=== PATIENT | male | born 1935 | race Caucasian/White ===

== ENCOUNTER 2024-12-03 09:58 | Observation (INO) ==
--- NOTE | 2024-12-03 10:15 | Emergency Department Note ---
Impression & Plan Acute hypotension, Memory impairment, Weakness ED Provider Note NAME: BYRON MURRAY AGE: 89 SEX: M : 1935 ARRIVES VIA: Ambulance INFORMANT: Patient ED PROVIDER(S): Huy Montanez DO CHIEF COMPLAINT: Low blood pressure HPI: Patient is an 89-year-old male with a past medical history of memory impairment, dyslipidemia, saddle PE, IVC filter who presents to the ER for low blood pressure from [facility]. Per patient he has a wound on his left lateral leg. He is unsure of how this occurred but is assuming that it was secondary to one of his dogs as he has 5 dogs. He notes all of them are vaccinated and doing well. He notes this occurred close to a month ago. He denies any redness or swelling around it. He denies any headache or change in vision. He admits to chest pain which is on both sides of his chest and has been present for over a year. It does not change with exertion or movement. Denies any belly pain, nausea, vomiting or diarrhea. No dysuria, urgency or frequency. No passing out. No other exacerbating or remitting factors. Patient is unaware of any tick bites. ADDITIONAL HISTORY OBTAINED: Discussed with Svetlana Walters who is the patient's daughter via telephone. She provides additional history and notes that patient was bit by his daughter's dog about a week ago. The dog's vaccinations are up-to-date. The dog is doing well. She also notes that her father has dementia and is at baseline confused and appears to be at his baseline currently. Chronic Medical/Social Conditions Affecting Care: Per HPI PAST MEDICAL HISTORY:See Below PAST SURGICAL HISTORY:See Below FAMILY HISTORY:See Below SOCIAL HISTORY:See Below HOME MEDICATIONS:See Below ALLERGIES:See Below VITALS:See Below PHYSICAL EXAMINATION: GENERAL: Sitting up in bed, alert, well appearing, well nourished, no distress, non-toxic EYE EXAM: normal conjunctiva. PERRL and EOM's grossly intact. OROPHARYNX: no exudate, no erythema, lips, buccal mucosa, and tongue normal and mucous membranes are moist NECK: supple, no nuchal rigidity, no adenopathy, non-tender LUNGS: Clear to auscultation. Normal chest wall mechanics HEART: no murmurs, S1 normal and S2 normal ABDOMEN: abdomen soft, non-tender, normo-active bowel sounds, no masses, no rebound or guarding. SKIN: Small wound on the left lateral lance with scab in place in the middle. Surrounding ring of discoloration of skin appears to be consistent with a bruise. UPPER EXTREMITIES: upper extremities are grossly normal. LOWER EXTREMITIES: No pitting edema. NEURO EXAM: Oriented to person and place but not year, cranial nerves II-XII intact, normal speech, no weakness of arms, no weakness of legs. No drift. Finger to nose intact. Gross sensation intact. MEDICAL DECISION MAKING: Patient is an 89-year-old male who presents ER for the above-stated complaint. IV was established blood work was obtained. Labs show no significant leukocytosis or anemia. INR unremarkable. BMP with LFTs bilirubin and lipase was unremarkable. Pro-Pio was normal. Troponin was negative. UA was clean. Viral panel testing was negative. Lyme was negative. Chest x-ray was clean. X-ray of the leg showed no retained foreign body. External records were reviewed from [facility] PCP and notes that patient was sent over for left leg lesion which they felt was secondary to a bug bite. They sent him over secondary to low blood pressure per Dr. Brock 12/04/2019 family medicine. Patient was given IV fluids. Systolic pressures prior to arrival were in the 60s per review of external records. Here they dipped down to 90s but did respond with IV fluids. He was updated bedside discussed with the daughter and patient was discussed with the hospitalist for observation overnight due to low blood pressures without a clear cause. Consults/Care Managements Discussions: Per [facility] Triage Nursing notes reviewed. Limited review of prior medical records performed Vital Signs: reviewed and remarkable for no significant abnormalities Differential diagnosis: Infection, dehydration, metabolic abnormality, hypo/hyperglycemia, electrolyte disturbance, anemia, hypoxia, cardiac sources, intracerebral event, toxicologic, neurologic, as well as other pathologies. ER treatment provided: See below Diagnostics interpreted by me include EKG and cardiac monitoring as listed below: -Cardiac Monitoring: An order was placed for continuous cardiac monitoring. The monitor shows a rate of 80 with sinus rhythm. -ECG: Sinus rhythm rate 76 Normal axis No PVCs First-degree AV block -Laboratory studies:Interpreted by me as stated above in MDM and shown below. Imaging studies: Xrays: As interpreted by me: Portable AP upright 1 view of the chest shows no focal M-Trate CTs show: none Procedures:none Critical Care: None Past Med/Surg History Problem List (Updated 12/03/24 @ 16:32 by Huy oMntanez DO) Weakness (Acute) Acute hypotension (Acute) Transient hypotension Neuropathy History of alcohol use Memory impairment (Acute) Abdominal aortic ectasia Dyslipidemia GERD (gastroesophageal reflux disease) Macular degeneration History of shingles 2007. 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 Coronary atherosclerosis Previously noted on chest CT Elevated sed rate Surgical History (Updated 06/02/21 @ 13:53 by Jeannine Francois PA-C) S/P ORIF (open reduction internal fixation) fracture 05/18/2021 History of tooth extraction History of cystoscopy Social History Smoking Status: Never smoker Cigarettes Per Day: 1/3 ppd x 42yrs; Second Hand Exposure: No; Do You Dip or Chew Tobacco: No; Hx Alcohol Use: Yes Alcohol type: hard liquor Hx Substance Use: No Preferred Language: Salvadorean Communication Ability: Effective English Faculty Member Required: No Beliefs That Will Affect Care: None Current Living Situation: Spouse Feels Safe at Home: Yes Assistive Devices: None Allergies Allergies Allergy/AdvReac Type Severity Reaction Status Date / Time No Known Allergies Allergy Verified 07/28/21 12:30 Home Meds Home Medications Medication Instructions Recorded Confirmed ascorbic acid (vitamin C) 500 mg 500 mg PO Q OTHER DAY 09/26/18 12/03/24 tablet clopidogrel 75 mg tablet (Plavix) 75 mg PO DAILY 09/26/18 12/03/24 acetaminophen 325 mg tablet 650 mg PO Q4H PRN Pain 06/02/21 12/03/24 cholecalciferol (vitamin D3) 25 25 mcg PO DAILY 06/02/21 12/03/24 mcg (1,000 unit) tablet cyanocobalamin (vitamin B-12) 1,000 mcg PO DAILY 06/02/21 12/03/24 1,000 mcg tablet docusate sodium 100 mg capsule 100 mg PO TID 06/02/21 12/03/24 omega-3 fatty acids 1,000 mg 1,000 mg PO DAILY 06/02/21 12/03/24 capsule polyethylene glycol 3350 17 17 g PO DAILY 06/02/21 12/03/24 gram/dose oral powder (Miralax) thiamine HCl (vitamin B1) 100 mg 500 mg PO DAILY 06/02/21 12/03/24 tablet allopurinol 100 mg tablet 100 mg PO DAILY 12/03/24 12/03/24 apixaban 5 mg tablet (Eliquis) 5 mg PO BID 12/03/24 12/03/24 buspirone 10 mg tablet 10 mg PO BID 12/03/24 12/03/24 colchicine 0.6 mg tablet 0.6 mg PO BID 12/03/24 12/03/24 metoprolol succinate 25 mg 25 mg PO DAILY 12/03/24 12/03/24 tablet,extended release 24 hr rosuvastatin 40 mg tablet 40 mg PO DAILY 12/03/24 12/03/24 sertraline 50 mg tablet 50 mg PO DAILY 12/03/24 12/03/24 Results & Data (ED) Vital Signs Vital Signs - 24 hr 12/03/24 09:35 12/03/24 09:41 12/03/24 09:41 Temperature 36.6 C Temperature Source Oral Pulse Rate 81 Pulse Rate [Apical] Pulse Rate from SpO2 Sensor Respiratory Rate 18 18 Blood Pressure 110/69 Blood Pressure [Right Arm] Blood Pressure Mean 82 Blood Pressure Mean [Right Arm] Pulse Oximetry 95 Oxygen Delivery Method Room Air Sepsis Recent Fever Within 48 Hours No Sepsis New/Unexplained Change in Mental Status N/A Sepsis Action Taken by Nursing No Action Required 12/03/24 10:10 12/03/24 10:16 12/03/24 10:16 Temperature Temperature Source Pulse Rate Pulse Rate [Apical] Pulse Rate from SpO2 Sensor Respiratory Rate Blood Pressure 98/70 L 98/70 L Blood Pressure [Right Arm] Blood Pressure Mean 79 79 Blood Pressure Mean [Right Arm] Pulse Oximetry 96 Oxygen Delivery Method Sepsis Recent Fever Within 48 Hours Sepsis New/Unexplained Change in Mental Status Sepsis Action Taken by Nursing 12/03/24 10:16 12/03/24 10:16 12/03/24 10:20 Temperature Temperature Source Pulse Rate 74 Pulse Rate [Apical] Pulse Rate from SpO2 Sensor Respiratory Rate Blood Pressure 98/70 L 98/70 L Blood Pressure [Right Arm] Blood Pressure Mean 79 79 Blood Pressure Mean [Right Arm] Pulse Oximetry Oxygen Delivery Method Sepsis Recent Fever Within 48 Hours Sepsis New/Unexplained Change in Mental Status Sepsis Action Taken by Nursing 12/03/24 10:30 12/03/24 10:30 12/03/24 11:45 Temperature Temperature Source Pulse Rate 75 71 Pulse Rate [Apical] 75 Pulse Rate from SpO2 Sensor 74 Respiratory Rate 19 18 17 Blood Pressure 109/76 Blood Pressure [Right Arm] 97/71 L Blood Pressure Mean 82 Blood Pressure Mean [Right Arm] 79 Pulse Oximetry 95 93 Oxygen Delivery Method Room Air Sepsis Recent Fever Within 48 Hours Sepsis New/Unexplained Change in Mental Status Sepsis Action Taken by Nursing 12/03/24 13:50 Temperature Temperature Source Pulse Rate Pulse Rate [Apical] 81 Pulse Rate from SpO2 Sensor Respiratory Rate 14 Blood Pressure Blood Pressure [Right Arm] 111/79 Blood Pressure Mean Blood Pressure Mean [Right Arm] 89 Pulse Oximetry 96 Oxygen Delivery Method Room Air Sepsis Recent Fever Within 48 Hours Sepsis New/Unexplained Change in Mental Status Sepsis Action Taken by Nursing Laboratory Data 12/03/24 10:00 12/03/24 10:00 Lab Results 12/03/24 12/03/24 12/03/24 Range/Units 10:00 10:53 12:16 WBC 7.09 (4.8-10.8) K/ul RBC 4.86 (4.70-6.10) M/uL Hgb 15.5 (14.0-18.0) g/dl Hct 46.0 (42.0-52.0) % MCV 94.7 (80.0-100.0) fL MCH 31.9 (25.0-34.0) pg MCHC 33.7 (32.0-36.0) g/dL RDW Std Deviation 49.6 H (36.4-46.3) fL RDW Coeff of Sam 14.2 (11.5-14.5) % Plt Count 225 (130-400) K/uL MPV 9.2 L (9.4-12.4) fL Immature Gran % (Auto) 0.3 % Neut % (Auto) 71.5 % Lymph % (Auto) 17.2 % [place] % (Auto) 9.9 % Eos % (Auto) 0.7 % Baso % (Auto) 0.4 % Neut # (Auto) 5.07 (1.40-6.50) K/uL Lymph # (Auto) 1.22 (1.20-3.40) K/uL [place] # (Auto) 0.70 H (0.11-0.59) K/uL Eos # (Auto) 0.05 (0.00-0.50) K/uL Baso # (Auto) 0.03 (0.00-0.20) K/uL Immature Gran # (Auto) 0.02 (0.01-0.20) K/uL PT Cancelled 10.9 INR Cancelled 1.0 Sodium 137 (136-145) mmol/L Potassium 3.9 (3.5-5.1) mmol/L Chloride 105 (98-107) mmol/L Carbon Dioxide 26 (21-32) mmol/L Anion Gap 6 (3-11) BUN 14 (6-23) mg/dl Creatinine 0.95 (0.6-1.4) mg/dl Est Cr Clr Drug Dosing 69.0 ml/min eGFR 77.47 BUN/Creatinine Ratio 14.7 (10-20) Glucose 106 H (70-99(Fasting)) mg/dl Lactate 1.1 (0.4-2.0) mmol/L Calcium 9.6 (8.6-10.3) mg/dl Total Bilirubin 0.9 (0.2-1.0) mg/dl AST 24 (13-39) U/L ALT 21 (7-52) U/L Alkaline Phosphatase 44 (34-104) U/L Troponin I High Sens 8.8 (0-20) pg/ml Total Protein 6.1 (6.0-8.3) gm/dl Albumin 3.8 (3.4-5.0) gm/dl Globulin 2.3 L (2.5-4.0) gm/dl Albumin/Globulin Ratio 1.7 (0.9-2) Lipase 11 (11-82) U/L Procalcitonin < 0.02 (0-0.5) ng/ml Urine Color Urine Appearance (Clear) Urine pH (4.5-7.5) Ur Specific [place] (1.000-1.030) Urine Protein (Negative) Urine Glucose (UA) (Negative) Urine Ketones (Negative) Urine Blood (Negative) Urine Nitrite (Negative) Urine Bilirubin (Negative) Urine Urobilinogen (Negative) Ur Leukocyte Esterase (Negative) Urine WBC (Auto) (0-5) /hpf Urine RBC (Auto) (0-2) /hpf U Hyaline Cast (Auto) (0-2) /lpf U Epithel Cells (Auto) (0-2) /hpf Urine Bacteria (Auto) (None Seen) Urine Mucus (None Prsent) Adenovirus (PCR) Not Detected (NotDetected) Anaplasma Smear See Comment Babesia Smear See Comment B. pertussis DNA (PCR) Not Detected (NotDetected) B.parapertussis DNA PCR Not Detected (NotDetected) Lyme Disease Screen Negative (Negative) C. pneumoniae DNA (PCR) Not Detected (NotDetected) Coronavirus OC43 (PCR) Not Detected (NotDetected) Coronavirus HKU1 (PCR) Not Detected (NotDetected) Coronavirus 229E (PCR) Not Detected (NotDetected) SARS-CoV-2 (PCR) Not Detected (NotDetected) Coronavirus NL63 (PCR) Not Detected (NotDetected) Human Metapneumovir PCR Not Detected (NotDetected) Influenza Type A (PCR) Not Detected (NotDetected) Influenza Type B (PCR) Not Detected (NotDetected) M. pneumoniae (PCR) Not Detected (NotDetected) Parainfluenza 1 (PCR) Not Detected (NotDetected) Parainfluenza 2 (PCR) Not Detected (NotDetected) Parainfluenza 3 (PCR) Not Detected (NotDetected) Parainfluenza 4 (PCR) Not Detected (NotDetected) RSV (PCR) Not Detected (NotDetected) Entero/Rhino (PCR) Not Detected (NotDetected) 12/03/24 Range/Units 13:21 WBC (4.8-10.8) K/ul RBC (4.70-6.10) M/uL Hgb (14.0-18.0) g/dl Hct (42.0-52.0) % MCV (80.0-100.0) fL MCH (25.0-34.0) pg MCHC (32.0-36.0) g/dL RDW Std Deviation (36.4-46.3) fL RDW Coeff of Sam (11.5-14.5) % Plt Count (130-400) K/uL MPV (9.4-12.4) fL Immature Gran % (Auto) % Neut % (Auto) % Lymph % (Auto) % [place] % (Auto) % Eos % (Auto) % Baso % (Auto) % Neut # (Auto) (1.40-6.50) K/uL Lymph # (Auto) (1.20-3.40) K/uL [place] # (Auto) (0.11-0.59) K/uL Eos # (Auto) (0.00-0.50) K/uL Baso # (Auto) (0.00-0.20) K/uL Immature Gran # (Auto) (0.01-0.20) K/uL PT INR Sodium (136-145) mmol/L Potassium (3.5-5.1) mmol/L Chloride (98-107) mmol/L Carbon Dioxide (21-32) mmol/L Anion Gap (3-11) BUN (6-23) mg/dl Creatinine (0.6-1.4) mg/dl Est Cr Clr Drug Dosing ml/min eGFR BUN/Creatinine Ratio (10-20) Glucose (70-99(Fasting)) mg/dl Lactate (0.4-2.0) mmol/L Calcium (8.6-10.3) mg/dl Total Bilirubin (0.2-1.0) mg/dl AST (13-39) U/L ALT (7-52) U/L Alkaline Phosphatase (34-104) U/L Troponin I High Sens (0-20) pg/ml Total Protein (6.0-8.3) gm/dl Albumin (3.4-5.0) gm/dl Globulin (2.5-4.0) gm/dl Albumin/Globulin Ratio (0.9-2) Lipase (11-82) U/L Procalcitonin (0-0.5) ng/ml Urine Color Dark Yellow Urine Appearance Clear (Clear) Urine pH 6.0 (4.5-7.5) Ur Specific [place] 1.023 (1.000-1.030) Urine Protein Trace H (Negative) Urine Glucose (UA) Negative (Negative) Urine Ketones 2+ H (Negative) Urine Blood Negative (Negative) Urine Nitrite Negative (Negative) Urine Bilirubin Negative (Negative) Urine Urobilinogen Negative (Negative) Ur Leukocyte Esterase Negative (Negative) Urine WBC (Auto) 0-5 (0-5) /hpf Urine RBC (Auto) 3-5 H (0-2) /hpf U Hyaline Cast (Auto) 0-2 (0-2) /lpf U Epithel Cells (Auto) 0-2 (0-2) /hpf Urine Bacteria (Auto) None Seen (None Seen) Urine Mucus Present A (None Prsent) Adenovirus (PCR) (NotDetected) Anaplasma Smear Babesia Smear B. pertussis DNA (PCR) (NotDetected) B.parapertussis DNA PCR (NotDetected) Lyme Disease Screen (Negative) C. pneumoniae DNA (PCR) (NotDetected) Coronavirus OC43 (PCR) (NotDetected) Coronavirus HKU1 (PCR) (NotDetected) Coronavirus 229E (PCR) (NotDetected) SARS-CoV-2 (PCR) (NotDetected) Coronavirus NL63 (PCR) (NotDetected) Human Metapneumovir PCR (NotDetected) Influenza Type A (PCR) (NotDetected) Influenza Type B (PCR) (NotDetected) M. pneumoniae (PCR) (NotDetected) Parainfluenza 1 (PCR) (NotDetected) Parainfluenza 2 (PCR) (NotDetected) Parainfluenza 3 (PCR) (NotDetected) Parainfluenza 4 (PCR) (NotDetected) RSV (PCR) (NotDetected) Entero/Rhino (PCR) (NotDetected) Administered Medications Discontinued Medications Sodium Chloride (Nss) 500 mls @ 999 mls/hr IV .Q31M ONE Stop: 12/03/24 10:45 Last Infusion: 12/03/24 11:13 Dose: Infused Documented By: AVRoman Admin: 12/03/24 10:29 Dose: 999 mls/hr Documented By: GRACE Ceftriaxone Sodium (Rocephin) 2,000 mg in 50 mls @ 100 mls/hr IV NOW STA Stop: 12/03/24 15:23 Last Admin: 12/03/24 15:49 Dose: 100 mls/hr Documented By: DUKE Imaging Data Radiologist's Impression: Chest X-Ray 12/03/24 10:10 XR chest 1V portable CLINICAL HISTORY: Chest pain, nonspecific COMPARISON STUDY: None FINDINGS: Heart size and pulmonary vasculature are normal. No effusion, consolidation, or pneumothorax. IMPRESSION: No acute findings. ACT 112: Negative or not required by law. Electronically signed by: Gustavo Blackburn M.D. 12/03/2024 10:28 AM Tibia/Fibula X-Ray 12/03/24 10:20 XR tibia fibula LT 2V CLINICAL HISTORY: ? FB in wound COMPARISON: None FINDINGS: There are atherosclerotic calcifications. There is moderate 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 at the left knee and mild degenerative changes of the left ankle. No fracture or dislocation seen of the left tibia or fibula. No evidence of osteomyelitis. No radiopaque foreign body seen. IMPRESSION: No acute findings seen. ACT 112: Negative or not required by law. Electronically signed by: Gustavo Blackburn M.D. 12/03/2024 10:33 AM Discharge Plan Visit Data Chief Complaint: Hypotension Stated Complaint: HYPOTENSION ED Provider: Huy Montanez Discharge Problem: Acute hypotension, Memory impairment, Weakness Forms Stand Alone Forms: My [facility] Prescriptions Prescriptions: No Action acetaminophen 325 mg tablet 650 mg PO Q4H PRN (Reason: Pain) Rx Instructions: Unable to verify OTC meds at this date/time. cholecalciferol (vitamin D3) 25 mcg (1,000 unit) tablet 25 mcg PO DAILY Rx Instructions: Unable to verify OTC meds at this date/time. thiamine HCl (vitamin B1) 100 mg tablet 500 mg PO DAILY Rx Instructions: Unable to verify OTC meds at this date/time. omega-3 fatty acids 1,000 mg capsule 1,000 mg PO DAILY Rx Instructions: Unable to verify OTC meds at this date/time. cyanocobalamin (vitamin B-12) 1,000 mcg tablet 1,000 mcg PO DAILY Rx Instructions: Unable to verify OTC meds at this date/time. polyethylene glycol 3350 [Miralax] 17 gram/dose powder 17 g PO DAILY Rx Instructions: Unable to verify OTC meds at this date/time. docusate sodium 100 mg capsule 100 mg PO TID Rx Instructions: Unable to verify OTC meds at this date/time. clopidogrel [Plavix] 75 mg Tablet 75 mg PO DAILY ascorbic acid (vitamin C) 500 mg Tablet 500 mg PO Q OTHER DAY Rx Instructions: Unable to verify OTC meds at this date/time. allopurinol 100 mg tablet 100 mg PO DAILY buspirone 10 mg tablet 10 mg PO BID metoprolol succinate 25 mg tablet extended release 24 hr 25 mg PO DAILY colchicine 0.6 mg tablet 0.6 mg PO BID sertraline 50 mg tablet 50 mg PO DAILY rosuvastatin 40 mg tablet 40 mg PO DAILY Eliquis 5 mg tablet 5 mg PO BID Referrals Referrals: Roni Kenyon MD [Outside Practitioners] -
[2024-12-03 10:28] LABS: Basophils # (auto) 0.03 K/uL (0.00-0.20); Basophils % (auto) 0.4 %; Eosinophils # (auto) 0.05 K/uL (0.00-0.50); Eosinophils % (auto) 0.7 %; Hemoglobin 15.5 g/dl (14.0-18.0); Immature Granulocytes # (auto) 0.02 K/uL (0.01-0.20); Immature Granulocytes % (auto) 0.3 %; Lymphocytes # (auto) 1.22 K/uL (1.20-3.40); Lymphocytes % (auto) 17.2 %; Mean Corpuscular Hemoglobin 31.9 pg (25.0-34.0); Mean Corpuscular Hgb Conc 33.7 g/dL (32.0-36.0); Mean Corpuscular Volume 94.7 fL (80.0-100.0); Mean Platelet Volume 9.2 fL (9.4-12.4); Monocytes % (auto) 9.9 %; Neutrophils # (auto) 5.07 K/uL (1.40-6.50); Neutrophils % (auto) 71.5 %; Platelet Count 225 K/uL (130-400); RDW Coefficient of Variation 14.2 % (11.5-14.5); RDW Standard Deviation 49.6 fL (36.4-46.3); Red Blood Count 4.86 M/uL (4.70-6.10); White Blood Count 7.09 K/ul (4.8-10.8)
[2024-12-03] MEDS: SODIUM CHLORIDE 0.9% 500 ML IV ONE (10:29)
--- NOTE | 2024-12-03 10:30 | XRay Report ---
XR chest 1V portable CLINICAL HISTORY: Chest pain, nonspecific COMPARISON STUDY: None FINDINGS: Heart size and pulmonary vasculature are normal. No effusion, consolidation, or pneumothora x. IMPRESSION: No acute findings. ACT 112: Negative or not required by law. Electronically signed by: Gustavo Blackburn M.D. 12/03/2024 10:28 AM
--- NOTE | 2024-12-03 10:34 | XRay Report ---
XR tibia fibula LT 2V CLINICAL HISTORY: ? FB in wound COMPARISON: None FINDINGS: There are atherosclerotic calcifications. There is moderate 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 at the left kne e and mild degenerative changes of the left ankle. No fracture or dislocation seen of the left tibia or fibula. No evidence of osteomyelitis. No radiopaque foreign body seen. IMPRESSION: No acute findings seen. ACT 112: Negative or not required by law. Electronically signed by: Gustavo Blackburn M.D. 12/03/2024 10:33 AM
[2024-12-03 10:51] LABS: Albumin Level 3.8 gm/dl (3.4-5.0); Bilirubin,Total 0.9 mg/dl (0.2-1.0); Calcium 9.6 mg/dl (8.6-10.3); Potassium 3.9 mmol/L (3.5-5.1)
[2024-12-03 10:57] LABS: Albumin Globulin Ratio 1.7 (0.9-2); BUN Creatinine Ratio 14.7 (10-20); Globulin 2.3 gm/dl (2.5-4.0); Total Protein 6.1 gm/dl (6.0-8.3); Troponin I High Sensitivity 8.8 pg/ml (0-20)
[2024-12-03 11:29] LABS: Prothrombin Time 10.9 Seconds (9.0-12.0)
[2024-12-03 13:42] LABS: Adenovirus PCR Not Detected (NotDetected); Bordetella parapertussis PCR Not Detected (NotDetected); Bordetella pertussis PCR Not Detected (NotDetected); Chlamydia pneumoniae PCR Not Detected (NotDetected); Coronavirus 229E PCR Not Detected (NotDetected); Coronavirus CoV-2 (COVID19)PCR Not Detected (NotDetected); Coronavirus HKU1 PCR Not Detected (NotDetected); Coronavirus NL63 PCR Not Detected (NotDetected); Coronavirus OC43PCR Not Detected (NotDetected); Human Metapneumovirus PCR Not Detected (NotDetected); Influenza A PCR Not Detected (NotDetected); Influenza B PCR Not Detected (NotDetected); Mycoplasma pneumoniae PCR Not Detected (NotDetected); Parainfluenza Virus 1 PCR Not Detected (NotDetected); Parainfluenza Virus 2 PCR Not Detected (NotDetected); Parainfluenza Virus 3 PCR Not Detected (NotDetected); Parainfluenza Virus 4 PCR Not Detected (NotDetected); Respiratory Syncytial VirusPCR Not Detected (NotDetected); Rhinovirus/Enterovirus PCR Not Detected (NotDetected)
[2024-12-03 14:05] LABS: Appearance Urine Clear (Clear); Bacteria Urine Automated None Seen (None Seen); Bilirubin Urine Negative (Negative); Blood Urine Negative (Negative); Cast Urine Automated 0-2 /lpf (0-2); Color Urine Dark Yellow; Epithelial Cell Urine Auto 0-2 /hpf (0-2); Glucose Urine UA Negative (Negative); Ketones Urine 2+ (Negative); Leukocyte Esterase Urine Negative (Negative); Mucus Urine Present (None Prsent); Nitrite Urine Negative (Negative); Protein Urine Trace (Negative); Specific Gravity Urine 1.023 (1.000-1.030); Urobilinogen Urine Negative (Negative); WBC Urine Automated 0-5 /hpf (0-5)
--- NOTE | 2024-12-03 14:33 | Electrocardiogram Report ---
Test Reason : Blood Pressure : */* mmHG Vent. Rate : 76 BPM Atrial Rate : 76 BPM P-R Int : 218 ms QRS Dur : 82 ms QT Int : 402 ms P-R-T Axes : 67 -15 51 degrees QTcB Int : 452 ms Sinus rhythm with 1st degree A-V block Otherwise normal ECG No previous ECGs available Confirmed by Kar Rodriugez ([id number]) on 12/03/2024 2:33:03 PM Referred By: Confirmed By: Kar Rodriguez
--- NOTE | 2024-12-03 15:34 | History & Physical Report ---
Date of Service December 03, 2024 Assessment & Plan (1) Transient hypotension: (2) Hypertension: (3) Factor V Leiden: (4) Coronary atherosclerosis: (5) Memory impairment: Plan Patient 89-year-old gentleman with known CAD, factor V Leiden deficiency on chronic anticoagulation, abdominal aortic aneurysm status post repair was noted to be hypotensive in his PCPs office earlier today. Patient was asymptomatic. Evaluation in the emergency room was unremarkable for acute findings. Blood pressure rapidly improved with hydration. Observe in a monitored unit Monitor blood pressure Hold antihypertensive medications Continue with chronic anticoagulation with Eliquis Anticipate if blood pressure remains stable can be discharged home tomorrow History of Present Illness Chief Complaint: Low blood pressure Primary Care Provider: Fran Peres MD Patient 89-year-old gentleman who initially presented to his PCPs office earlier today to evaluate a bite on his leg. In the office he was noted to have extremely low blood pressure. Multiple readings showed a systolic less than 100 and at 1 point had a systolic of 60. Patient apparently was mentating normally throughout this time. Denied any specific symptoms. His PCP sent him to the emergency room for further evaluation. When patient presented to the emergency department his initial systolic blood pressure was 98. His blood pressure significantly improved with fluid resuscitation. Laboratory and imaging studies performed in the emergency room were unremarkable. However due to the patient's initial clinical presentation was referred to our service for further evaluation. Time of my evaluation the patient will denies any symptoms. No li ghtheadedness and dizziness, no cough or cold symptoms, states that he is chronically short of breath but this is not gotten any worse over the past few days. He describes some chronic bilateral musculoskeletal chest pain. He states has been eating and drinking well. No new problems with the bowels or bladder. No new swelling his hands arms legs or feet. There was learned that he did have a dog bite it was a relatives dog that is up-to-date on all his vaccines. Imaging of the leg in the ED showed no acute findings. Patient was concerned because there was a ring around the dog puncture wound. Tickborne illness panel in the ED was negative. Patient reports that he did take his usual medications this morning. Denies that he may have taken any extra blood pressure medications. States he lives independently with his . Allergies Allergy/AdvReac Type Severity Reaction Status Date / Time No Known Allergies Allergy Verified 07/28/21 12:30 Home Medications Medication Instructions Recorded Confirmed Type ascorbic acid (vitamin C) 500 mg 500 mg PO Q OTHER DAY 09/26/18 12/03/24 History tablet clopidogrel 75 mg tablet (Plavix) 75 mg PO DAILY 09/26/18 12/03/24 History acetaminophen 325 mg tablet 650 mg PO Q4H PRN Pain 06/02/21 12/03/24 History cholecalciferol (vitamin D3) 25 25 mcg PO DAILY 06/02/21 12/03/24 History mcg (1,000 unit) tablet cyanocobalamin (vitamin B-12) 1,000 mcg PO DAILY 06/02/21 12/03/24 History 1,000 mcg tablet docusate sodium 100 mg capsule 100 mg PO TID 06/02/21 12/03/24 History omega-3 fatty acids 1,000 mg 1,000 mg PO DAILY 06/02/21 12/03/24 History capsule polyethylene glycol 3350 17 17 g PO DAILY 06/02/21 12/03/24 History gram/dose oral powder (Miralax) thiamine HCl (vitamin B1) 100 mg 500 mg PO DAILY 06/02/21 12/03/24 History tablet allopurinol 100 mg tablet 100 mg PO DAILY 12/03/24 12/03/24 History apixaban 5 mg tablet (Eliquis) 5 mg PO BID 12/03/24 12/03/24 History buspirone 10 mg tablet 10 mg PO BID 12/03/24 12/03/24 History colchicine 0.6 mg tablet 0.6 mg PO BID 12/03/24 12/03/24 History metoprolol succinate 25 mg 25 mg PO DAILY 12/03/24 12/03/24 History tablet,extended release 24 hr rosuvastatin 40 mg tablet 40 mg PO DAILY 12/03/24 12/03/24 History sertraline 50 mg tablet 50 mg PO DAILY 12/03/24 12/03/24 History Past Med/Surg History Problem List (Updated 12/03/24 @ 15:38 by Zach Tsai DO) Transient hypotension Neuropathy History of alcohol use Memory impairment Abdominal aortic ectasia Dyslipidemia GERD (gastroesophageal reflux disease) Macular degeneration History of shingles 2007. 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 Sclera clear Neck: Soft, no adenopathy Lungs: Clear to auscultation, decreased, no wheezes rales or rhonchi CV: S1-S2, regular Abdomen: Soft, nontender, nondistended Extremities: No significant edema Musculoskeletal: Some mild tenderness to palpation in the anterior ribs bilaterally Neuro: No focal deficits Psych: Cooperative, normal mood Derm: Well-healing puncture wound Left lower extremity, no evidence of cellulitis, no erythema, no swelling, no tenderness Results & Data Results & Data Vital Signs (Past 12 Hours) Vital Signs Temp Pulse Pulse Resp BP BP Pulse Ox 12/03/24 13:50 81 14 111/79 96 12/03/24 11:45 75 17 97/71 L 93 12/03/24 10:30 71 18 109/76 12/03/24 10:30 75 19 95 12/03/24 10:20 74 12/03/24 10:16 98/70 L 12/03/24 10:16 98/70 L 03/25/25 10:16 98/70 L 12/03/24 10:16 98/70 L 12/03/24 10:10 96 12/03/24 09:41 18 12/03/24 09:41 12/03/24 09:35 36.6 C 81 18 110/69 95 O2 Del Method 12/03/24 13:50 Room Air 12/03/24 11:45 Room Air 12/03/24 10:30 12/03/24 10:30 12/03/24 10:20 12/03/24 10:16 12/03/24 10:16 12/03/24 10:16 12/03/24 10:16 12/03/24 10:10 12/03/24 09:41 12/03/24 09:41 Room Air 12/03/24 09:35 Diagnostic Findings Reviewed imaging, laboratory and diagnostic studies. Pertinent findings as below. Personally reviewed chest x-ray, no consolidative pneumonia Personally reviewed EKG, sinus rhythm no acute ST-T wave changes Tickborne illness panel negative Urinalysis unremarkable Respiratory viral panel negative BMP stable CBC stable Code Status & VTE Plan VTE Prophylaxis Plan VTE Prophylaxis will be ordered: No Reason for no VTE drug order: Contraindicated
[2024-12-03] MEDS: cefTRIAXone SODIUM 2,000 MG/50 ML BAG IV STA (15:49)
--- OUTSIDE RECORDS SUMMARY | 2024-12-03 16:51 | External Medical Summary | Summary of Care ---
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) Aortic root dilatation (HCC) CKD (chronic kidney disease), 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) senior care current use of 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 Mixed dyslipidemia History of endovascular stent graft for abdominal aortic aneurysm 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) Procedures CTA ABD/PELVIS Trey Culver PA-C [address] [place] [address] Phone: tel: fax: Referral ID Status Reason Start Date Expiration Date V isits Requested Visits Authorized [id number] Authorized 10/23/2024 999 999 Reason for Visit * Reason Comments Follow Up Encounter Details Date Type Department Care Team (Latest Contact Info) Description 10/23/2024 10:10 AM EST Office Visit Vascular Surgery, [facility] [address] [facility] [place] [address] Walt Raphael MD [address] [place] [address] 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 Active folic acid 1 MG Tablet Take 1 Tablet by mouth every other day. Active vitamin c (ASCORBIC ACID) 500 MG Tablet Take 1 Tablet by mouth every other day. Active Garlic 500 MG CAPS Take 1 Cap by mouth every other day. Active Multiple Vitamins-Minerals (MULTIVITAMIN ADULT) TABS Take by mouth. Act wilber Cholecalciferol (VITAMIN D) 2000 UNITS Capsule Take 2,000 Units by mouth daily. Active Multiple Vitamins-Minerals (PRESERVISION AREDS 2) Capsule Take 1 Capsule by mouth in the morning. Active Ipratropium-Albut anthony 0.5-2.5 (3) MG/3ML Inhalation Solution (Duoneb)Indicatio ns:COPD, 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 determined ([facility]) Inhale 3 mL by mouth every 6 hours as needed for Shortness of Breath. 372 mL 5 1 Active Docusate Sodium 100 MG Oral Capsule (Colace)Indicatio ns:Constipation, unspecified constipation type Take 1 Cap by mouth daily. 60 Cap 2 1 Active Additional Information Patient taking differently:100 mg OralPRN, Reported on 10/23/2024 Calcium 200 MG Oral Tablet Take 200 mg by mouth in the morning. Active Rosuvastatin Calcium 40 MG Oral Tablet (Crestor)Indicati ons:Mixed dyslipidemia TAKE ONE TABLET BY MOUTH EVERY DAY AT BEDTIME 100 Tablet 1 08/20/2024 12:47 PM EST 4 Active Isosorbide Mononitrate ER 30 MG Oral Tablet Extended Release 24 Hour (Imdur)Indication s:Coronary artery calcification Take 0.5 Tablets by mouth in the morning. 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 60 Tablet 5 10/08/2024 7:28 AM EST 4 Active Allopurinol 100 MG Oral Tablet (Zyloprim)Indicat ions:Gouty arthropathy Take 1 Tablet by mouth in the morning. 90 Tablet 1 09/28/2024 3:45 PM EST 4 Active Sertraline HCl 50 MG Oral Tablet (Zoloft)Indicatio ns:Anxiety Take 1 Tablet by mouth in the morning. 90 Tablet 1 10/21/2024 5:43 PM EST 4 Active Loratadine 10 MG Oral Tablet (Claritin)Indicat ions:Tinnitus of both ears Take 1 Tablet by mouth in the morning. 30 Tablet 5 Active busPIRone HCl 10 MG Oral Tablet (Buspar)Indicatio ns:PURVI (generalized anxiety disorder) Take 1 Tablet by mouth in the morning and 1 Tablet before bedtime. 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) 1.5 mg IJ PRN 07/09/2024 07/09/2025 Active documented as of this encounter (statuses as of 10/23/2024) Active Problems Problem Noted Date Diagnosed Date History of endovascular sten t graft for abdominal aortic aneurysm 10/23/2024 Type Ib endoleak of aortic graft 10/23/2024 Pre-op testing 10/23/2024 Other emphysema 12/13/2023 BMI 26.0-26.9,adult 11/08/2022 Emphysema of lung 07/07/2021 Aortic root dilatation 07/07/2021 Ascending aortic aneurysm 07/07/2021 Nonrheumatic mitral valve regurgitation 07/07/20 21 CKD (chronic kidney disease), stage II Overview (04/29/2021): EGFR 66.5 Hx pulmonary embolism 07/16/2020 Primary 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 of both knees 08/01/2019 senior care current use of 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 0 03/04/2019 Actinic keratosis 12/12/2018 Atherosclerosis of [place] 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[place] heart without angina pectoris 04/19/2018 Abdominal aortic aneurysm without rupture 2015 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 09/14/2015 Factor V 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 12/30/2013 Overview (12/30/2013): has one copy of Factor V 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 Mixed dyslipidemia 11/25/2009 GENERAL OSTEOARTHROSIS Tobacco use disorder Exudative age-related macula r degeneration of both eyes with active choroidal neovascularization documented as of this encounter (statuses as of 10/23/2024) Resolved Problems Problem Noted Date Diagnosed Date Resolved Date ASCVD (arteriosclerotic card iovascular disease) 07/07/2021 10/19/2021 Coronary artery calcification 07/07/2021 03/26/2024 Overview (03/26/2024): duplicate Abdominal aortic aneurysm (A AA) without rupture 10/11/2016 10/11/2016 AAA (abdominal aortic aneurysm) 10/07/2015 10/11/2016 Overview (10/07/2015): S/p repair Iliac artery thrombosis, left 09/23/2015 04/19/2018 Coronary atherosclerosis 04/30/201502/2019 Abdominal aortic ectasia 10/30/2014 Discomfort in chest 10/21/2014 10/17/19 18 Macular degeneration (senile) of retina 06/26/2014 10/24/2019 Saddle embolus of pulmonary artery 12/23/2013 04/19/2018 Overview (12/25/2013): Admitted [facility] Encounter for examination fo r normal comparison and control in clinical research program 07/31/2012 2013 Overview (12/28/2020): Diagnosis changed due to Research Module. Go to Snapshot for study details. Vitamin D deficiency 11/25/2009 018 Overview (11/26/2009): Vitamin D 18.8 Dyslipidemia, goal to be determined 08/20/2009 11/25/2009 Overview (08/20/2009): Per Lipid Taxonomy. ADVANCE DIRECTIVE INFORMATION 09/13/2005 07/15/2024 Overview (09/13/2005): Yes, Patient instructed to provide copy of advance directive for provider to review and to be scanned into Electronic Medical Record Essential hypertension with goal blood pressure less than 140/90 10/17/2017 PURE HYPERCHOLESTEROLEM 08/11 Overview (08/20/2009): Per Lipid Taxonomy. Esophageal reflux 04/23/2019 BMI 32.0-32.9,adult 01/16/20 13 BMI 31.0-31.9,adult 10/11/19 17 documented as of this encounter (statuses as of 10/23/2024) Immunizations Name Administration Dates Next Due COVID-19 mRNA, LNP-s, No Pre serve, 2-Dose Series (Moderna) 11/06/2020,10/09/2020 COVID-19, LNP-s, No Preserve , Seng-sucrose, Ages 12+ (Pfizer) 05/03/2022 COVID-19, mRNA, LNP-s, PF, B ooster, 100mcg/0.5mg (Moderna) 11/02/2021 Influenza, Whole Virus 08/16/2000 Pneumococcal Conjugate Vacc, 13 Valent (Prevnar) 09/22/2014 Pneumococcal Polysaccharide PPV23 (Pneumovax) 09/17/2003 Season Influenza, Quad, PF, Adjuvanted, 65+ Yrs, IM (FLUAD) 05/12/2021,06/01/2020 Seasonal Influenza Vac., MDV , IM, 0.5 mL (Fluzone) 05/28/2015,06/05/2014,06/04/2013,06/11,05/15/2012,05/31/2011,06/08/20 10,05/29/2009,07/22/2008,06/21/2007,1 ,06/23/2005,06/15/2004,07/03,07/15/2002,08/01/2001 06/15/2005 Seasonal Influenza, High Dos e, Trivalent, PF, IM (Fluzone HD) 05/29/2024 Seasonal Influenza, PF, 6 M & above, IM , (FluLaval or Fluzone) 06/21/2018 Seasonal Influenza, Quadriva lent Hd (Fluzone Hd) 06/01/2023,05/30/2022,06/07/2021 Seasonal Influenza, Quadriva lent, No Preserve, IM 05/22/2017,06/27/2016 Seasonal Influenza, Trivalen t, Adjuvanted, 65+ YRS, PF, (Fluad) 07/02/2019 TD - Tetanus/Diptheria (ADULT) 09/18/2007 TDAP (age 10 and older)(Boostrix) 05/09/2023,03/2013 Varicella Zoster Vaccine (Adult) 06/26/2012 Zoster Vaccine Recombinant (Shingrix) 04/02/2020 ,12/25/2019 documented as of this encounter Social History Tobacco Use Types Packs/Day Years Used Date Smoking Tobacco: Every Day Cigarettes 0.3 53 Started: 04/27/1968; Last attempted to quit: 04/27/2021 Cigars Smokeless Tobacco: Never Tobacco Cessation:Ready to Q uit: No; Counseling Given: No Comments:10/23/2024 Smoke cigars about 2 packs per week,declined pamphlet 08/31/22 4-5 little cigars, declined pamphlet Alcohol Use Standard Drinks/Week Comments Yes 0 (1 standard drink = 0.6 oz pur e alcohol) 3-4 days a week PHQ-2 Answer Date Recorded PHQ-2 Score -1 05/31/2020 Sex and Gender Information Value Date Recorded Sex Assigned at Not on file Legal Sex Male 6:01 AM EST Gender Identity Not on file Sexual Orientation Not on file documented as of this encounter Last Filed Vital Signs Vital Sign Reading Time Taken Comments Blood Pressure 110/72 10/23/2024 9:53 AM EST Pulse 54 10/23/2024 9:53 AM EST Temperature - - Respiratory Rate - - Oxygen Saturation - - Inhaled Oxygen Concentration - - Weight 106.3 kg (234 lb 6.4 oz) 10/23/2024 9:53 AM EST Height 193 cm (6' 4") 10/23/2024 9:53 AM EST Body Mass Index 28.53 10/23/2024 9:53 AM EST documented in this encounter Progress Notes * Trey Culver PA-C - 10/23/2024 10:10 AM EST Images from the original note were not included. Date of Service: 10/23/2024 9:58 AM Jeff Powers is a 88 year old male. Patient being seen in consultation at the request of Roni Kenyon MD Chief Complaint: Surveillance of 2015 EVAR. Presents with his , Sarai, and their daughter, Nargis Patient is dealing with some painful knees, due to OA Otherwise doing OK Lives at home, with his HPI: Reformed smoker with PMH of HTN, dyslipidemia, CKD and emphysema. Patient underwent embolization of RIIA and repair of aortic/iliac aneurysms with Medtronic Endurantdevice 02/13/[address] Lee. Surveillance imaging noted left endograft limb thrombus. Underwent an angiogram on 09/22/15 which revealed a non-occlusive thrombus in left iliac limb, with multiple angiographic views and multiple pressure gradients measured - surveyed (on anticoagulation anyway for his DVT/PE hx). 11/2015 CTA noted resolution of previously noted L limb thrombus. ABDOMINAL AORTIC ANEURYSM: Denies FmHx of AAA. Patient denies any symptoms related to AAA repair. DVT/PE/IVC FILTER: Was previously on Xarelto/Aspirin following DVT/PE in 2013. IVC filter was placed at that time and subsequently removed at [facility] 01/27/2014. Was noted to have Factor V Leiden deficiency. Current Outpatient Medications Medication Sig Dispense Refill Cyanocobalamin (VITAMIN B-12) [address] 1 Tablet under the tongue every morning. folic acid 1 MG Tablet Take 1 Tablet by mouth every other day. vitamin c (ASCORBIC ACID) 500 MG Tablet Take 1 Tablet by mouth every other day. Garlic 500 MG CAPS Take 1 Cap by mouth every other day. Multiple Vitamins-Minerals (MULTIVITAMIN ADULT) TABS Take by mouth. Cholecalciferol (VITAMIN D) 2000 UNITS Capsule Take 2,000 Units by mouth daily. Multiple Vitamins-Minerals (PRESERVISION AREDS 2) Capsule Take 1 Capsule by mouth in the morning. Ipratropium-Albuterol 0.5-2.5 (3) MG/3ML Inhalation Solution (Duoneb) Inhale 3 mL by mouth every 6 hours as needed for Shortness of Breath. 372 mL 5 Docusate Sodium 100 MG Oral Capsule (Colace) Take 1 Cap by mouth daily. (Patient taking differently: Take 1 Capsule by mouth as needed.) 60 Cap 2 Calcium 200 MG Oral Tablet Take 200 mg by mouth in the morning. Rosuvastatin Calcium 40 MG Oral Tablet (Crestor) TAKE ONE TABLET BY MOUTH EVERY DAY AT BEDTIME 100 Tablet 1 Isosorbide Mononitrate ER 30 MG Oral Tablet Extended Release 24 Hour (Imdur) Take 0.5 Tablets by mouth in the morning. 50 Tablet 3 Metoprolol Succinate ER 25 MG Oral Tablet Extended Release 24 Hour (toPROL XL) TAKE 1 TABLET BY MOUTH EVERY EVENING 100 Tablet 1 Clopidogrel Bisulfate 75 MG Oral Tablet (pLAVix) TAKE ONE TABLET BY MOUTH EVERY MORNING 100 Tablet 3 Colchicine 0.6 MG Oral Tablet Take 1 Tablet by mouth in the morning and 1 Tablet before bedtime. 60Tablet 5 Allopurinol 100 MG Oral Tablet (Zyloprim) Take 1 Tablet by mouth in the morning. 90 Tablet 1 Sertraline HCl 50 MG Oral Tablet (Zoloft) Take 1 Tablet by mouth in the morning. 90 Tablet 1 Loratadine 10 MG Oral Tablet (Claritin) Take 1 Tablet by mouth in the morning. 30 Tablet 0 busPIRone HCl 10 MG Oral Tablet (Buspar) Take 1 Tablet by mouth in the morning and 1 Tablet before bedtime. 180 Tablet 2 Apixaban 5 MG Oral Tablet (Eliquis) Take 1 Tablet by mouth in the morning and 1 Tablet before bedtime. 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 Actinic keratosis 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 current use of 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 Primary 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 of both knees Hx pulmonary embolism CKD (chronic kidney disease), stage II Emphysema of lung (HCC) Aortic root dilatation (HCC) Ascending aortic aneurysm (HCC) Nonrheumatic mitral valve regurgitation Other emphysema (HCC) Past Medical History: Diagnosis Date Abdominal aortic ectasia (HCC) 10/30/2014 Anterior epistaxis 12/03/2017 ER Bilateral dry eyes BMI 28.0-28.9,adult CKD (chronic kidney disease), stage II 10/29/2020 EGFR 66.5 Diverticulosis of colon 07/24/2007 minimal sigmoid diverticular disease Encounter for ophthalmic examination and evaluation 10/05/2006 Esophageal reflux 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) Exudative age-related macular degeneration of right eye with active choroidal neovascularization (HCC) 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) 12/30/2013 has one copy of Factor V 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 Generalized 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 GERD (gastroesophageal reflux disease) Herpes zoster 08/05/2008 left forehead 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 09/18/2015 [facility] HTN, goal below 140/90 Iliac artery thrombosis, 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 [facility] Internal hemorrhoids 07/24/2007 Macular degeneration (senile) of retina 06/26/2014 Nonexudative age-related macular degeneration, bilateral, intermediate dry stage Other seborrheic keratosis 06/17/2002 [place]-surgical removal under local anesthesia Saddle embolus of pulmonary artery (HCC) 12/23/2013 Admitted [facility] Tobacco use disorder Vitamin D deficiency 11/25/2009 Vitamin D 18.8 Past Surgical History: Procedure Laterality Date ANKLE-BRACHIAL INDEX (CARDIOLOGY) Bilateral 04/25/2019 1.1 on left and right, normal CATHETERIZE LEFT HEART THRU SKIN 1985 Cardiac Catheterization, Left Heart COLONOSCOPY, OUTSIDE PROCEDURE 07/24/2007 Dr Chaudhari, minimal diverticular disease of sigmoid and modest internal hemorrhoids CT CARDIAC COMPLETE 12/23/2013 large nonocclusive pulmonary saddle embolus ECHO, COMPLETE (2D), TRANS-THORACIC 12/23/2013 EF 60% ENDOVASC ABDO REPR W/BI DEVICE 02/13/2015 [facility] ENDOVASC ABDO REPR W/BI DEVICE N/A 02/13/2015 Repair of aorta and iliac aneurysms with Medtronic Endurant device (Main body: [id number], Right iliac limb extension: 82-45-47, Left iliac limb [phone]) by Dr. Lee. FEM/POP ARTERY REVASC W/ STENT+ANGIOPLASTY Left 09/22/2015 FEM/POP ARTERY REVASC W/ STENT+ANGIOPLASTY performed by Clayton Lee MD at OR [facility] INJECTION OF EYE DRUG Right 07/05/2017 # 1 Eylea OD, Dr. Deleon INJECTION OF EYE DRUG Left 07/13/2017 # 1 Eylea OS, INJECTION OF EYE DRUG Right 08/25/2017 # 2 Eylea OD, INJECTION OF EYE DRUG Left 08/25/2017 # 2 Eylea OS, INJECTION OF EYE DRUG Right 10/19/2017 # 3 Eylea OD; Dr. Deleon INJECTION OF EYE DRUG Left 10/19/2017 # 3 Eylea OS; Dr. Deleon INJECTION OF EYE DRUG Left 12/27/2017 #4 Eylea OS, Dr. Deleon INJECTION OF EYE DRUG Right 12/27/2017 #4 Eylea OD, Dr. Deleon INJECTION OF EYE DRUG Right 03/27/2018 # 5 Eylea OD, INJECTION OF EYE DRUG Right 05/08/2018 # 6 Eylea OD, Dr. Deleon INJECTION OF EYE DRUG Left 05/08/2018 # 5 Eylea OS, Dr. Deleon INJECTION OF EYE DRUG Right 07/17/2018 # 7 Eylea OD, Dr. Deleon INJECTION OF EYE DRUG Left 07/17/2018 # 6 Eylea OS, Dr. Deleon INJECTION OF EYE DRUG Right 10/11/2018 #8 Eylea OD, Dr Adrienne GALDAMEZ OF EYE DRUG Left 10/11/2018 #7 Eylea OS, Dr. Deleon INJECTION OF EYE DRUG Right 01/17/2019 # 9 Eylea OD, Dr. Deleon INJECTION OF EYE DRUG Left 01/17/2019 # 8 Eylea OS, Dr. Deleon INJECTION OF EYE DRUG Right 04/18/2019 # 10 Eylea OD, INJECTION OF EYE DRUG Left 04/18/2019 # 9 Eylea OS, INJECTION OF EYE DRUG Right 07/25/2019 # 11 Eylea OD, Dr. Deleon INJECTION OF EYE DRUG Left 07/25/2019 # 10 Eylea OS, Dr. Deleon INJECTION OF EYE DRUG Right 11/14/2019 # 12 Eylea OD, INJECTION OF EYE DRUG Left 11/14/2019 # 11 Eylea OS, INJECTION OF EYE DRUG Right 03/05/2020 # 13 Eylea OD, INJECTION OF EYE DRUG Left 03/05/2020 # 12 Eylea OS, INJECTION OF EYE DRUG Right 06/25/2020 # 14 Eylea OD, Dr. Deleon INJECTION OF EYE DRUG Left 06/25/2020 # 13 Eylea OS, Dr. Deleon INJECTION OF EYE DRUG Right 10/15/2020 # 15 Eylea OD, Dr. Deleon INJECTION OF EYE DRUG Left 10/15/2020 # 14 Eylea OS, Dr. Deleon INJECTION OF EYE DRUG Right 01/21/2021 # 16 ylea OD, Dr. Deleon INJECTION OF EYE DRUG Left 01/21/2021 # 15 Eylea OS, Dr. Deleon INJECTION OF EYE DRUG Right 04/22/2021 # 17 Eylea OD, Dr. Deleon INJECTION OF EYE DRUG Left 04/22/2021 # 16 Eylea OS, Dr. Deleon INJECTION OF EYE DRUG Right 07/29/2021 # 18 Eylea OD, Dr. Deleon INJECTION OF EYE DRUG Left 07/29/2021 # 17 Eylea OS, Dr. Deleon INJECTION OF EYE DRUG Right 10/28/2021 # 19 Eylea OD, Dr. Deleon INJECTION OF EYE DRUG Left 10/28/2021 # 18 Eylea OS, Dr. Deleon INJECTION OF EYE DRUG Right 01/20/2022 # 20 Eylea OD, Dr. Deleon INJECTION OF EYE DRUG Left 01/20/2022 # 19 Eylea OS, Dr. Deleon INJECTION OF EYE DRUG Right 04/28/2022 # 21 Eylea OD, Dr. Deleon INJECTION OF EYE DRUG Left 04/28/2022 # 20 Eylea OS, Dr. Deleon INJECTION OF EYE DRUG Left 07/28/2022 # 21 Eylea OS, Dr. Deleon INJECTION OF EYE DRUG Right 07/28/2022 # 22 Eylea OD, Dr. Deleon INJECTION OF EYE DRUG Right 09/29/2022 # 23 Eylea OD, Dr. Deleon INJECTION OF EYE DRUG Left 09/29/2022 # 22 Eylea OS, Dr. Deloen INJECTION OF EYE DRUG Left 12/12/2022 # 23 Eylea OS; Dr Deleon INJECTION OF EYE DRUG Right 12/12/2022 # 24 Eylea OD; Dr Deleon INJECTION OF EYE DRUG Right 02/09/2023 # 25 Eylea OD, Dr. Deleon INJECTION OF EYE DRUG Left 02/09/2023 # 24 Eylea OS, Dr. Deleon INJECTION OF EYE DRUG Right 04/11/2023 # 26 Eylea OD, Dr. Deleon INJECTION OF EYE DRUG Left 04/11/2023 # 25 Eylea OS, Dr. Deleon INJECTION OF EYE DRUG Left 06/15/2023 #26 Eylea OS; DR Deleon INJECTION OF EYE DRUG Right 06/15/2023 #27 Eylea OD; DR Deleon INJECTION OF EYE DRUG Left 08/17/2023 #27 Eylea OS; Dr Deleon INJECTION OF EYE DRUG Right 08/17/2023 #28 Eylea OD; Dr Deleon INJECTION OF EYE DRUG Right 10/19/2023 # 29 Eylea OD, Dr. Deleon INJECTION OF EYE DRUG Left 10/19/2023 # 28 Eylea OS, Dr. Deleon INJECTION OF EYE DRUG Right 12/21/2023 # 30 Eylea OD, Dr. Deleon INJECTION OF EYE DRUG Left 12/21/2023 # 29 Eylea OS, Dr. Deleon INJECTION OF EYE DRUG Right 01/22/2024 # [address] Deleon INJECTION OF EYE DRUG Left 01/22/2024 # [address] Deleon INJECTION OF EYE DRUG Left 03/19/2024 #31 Eylea OS;Dr deleon INJECTION OF EYE DRUG Right 03/19/2024 #32 Eylea OD; DR Deleon INJECTION OF EYE DRUG Right 05/14/2024 #[address] Deleon INJECTION OF EYE DRUG Left 05/14/2024 #[address] Deleon INJECTION OF EYE DRUG Left 07/09/2024 #33 Eylea OS; Dr Deleon INJECTION OF EYE DRUG Right 07/09/2024 #34 Eylea OD; Dr Deleon INJECTION OF EYE DRUG Right 09/05/2024 #35 Eylea OD, Dr. Deleon INJECTION OF EYE DRUG Left 09/05/2024 #34 Eylea OS, Dr. Deleon INJECTION OF EYE DRUG Right 10/21/2024 #36 Eylea OD, Dr. Deleon INJECTION OF EYE DRUG Left 10/21/2024 #35 Eylea OS, Dr. Deleon IR ARTERIOGRAM EXTREMITY UNILATERAL Left 09/22/2015 IMAGING SUPERVISION & INTERPRETATION EXTREMITY UNILATERAL performed by Clayton Lee MD at OR [facility] IR EMBOLIZATION ARTERIAL NON HEMMORHAGE Right 02/13/2015 right iliac IR EMBOLIZATION ARTERIAL NON HEMMORHAGE Right 02/13/2015 Embolization of right internal iliac artery with 16 mm Amplatzer Vascular Plug by Dr. Lee. IR FILTER REMOVAL VENA CAVA 01/27/2014 IR PLACEMENT IVC FILTER 12/23/2013 [facility] [place]IGATION/BIOPSY OF TEMPORAL ARTERY Bilateral 09/28/2018 no vasculitis seen MISCELLANEOUS ORDER ([facility] ONLY) Bilateral 07/05/17-07/05/18 EYLEA OU CONSENT SIGNED, Dr. Adrienne MICHELLE ORDER ([facility] ONLY) Bilateral 07/17/2018-07/17/2019 EYLEA CONSENT OU SIGNED; DR ADRIENNE MICHELLE ORDER ([facility] ONLY) Bilateral 07/25/2019-07/25/2020 EYLEA CONSENT OU SIGNED; DR ADRIENNE MICHELLE ORDER ([facility] ONLY) ACT 112 signed, 11/14/2019 OTHER (INFORMATION) EYLEA OU CONSENT SIGNED, DR. DELEON EXP. 10/15/21 OTHER (INFORMATION) EYLEA OU CONSENT SIGNED, Dr. Deleon/Laron EXP. 10/28/22 OTHER (INFORMATION) Bilateral EYLEA OU CONSENT DR. DELEON/LARON KENNETH. 12/13/23 OTHER (INFORMATION) EYLEA CONSENT OU SIGNED EXP 12/20/24, /LARON PFT B/A 01/09/2014 normal spirometry, improved post bronchodilator REMOVE CATARACT, INSERT LENS PROSTH 11/2006 right REMOVE CATARACT, INSERT LENS PROSTH 12/2006 left STRESS ECHO (EXERCISE) 10/23/2014 poor exercise tolerance, no inducible ischemia, stop smoking STRESS TREADMILL 1995 stress sestamibi-neg THROMBECTOMY, PERC PRIMARY ARTERIAL MECHANICAL, ADD-ON Left 09/22/2015 MECHANICAL THROMBECTOMY, ARTERIAL OR ARTERIAL BYPASS GRAFT, ADDITIONAL VESSEL performed by Clayton Lee MD at OR [facility] US AAA SCREEN, VASCULAR LAB N/A 10/05/2016 endograft stable, no leak, 2.5 cm aneurysm US AORTA 07/12/2011 2.78 cm ectatic US AORTA 11/30/2015 mid aortic graft patent, aneurysm sac 2.6 cm iliac grafts open US AORTA 10/20/2017 aorta stable. VASC ANKLE BRACHIAL INDICES WITHOUT PPG (PAD) 10/16/2004 ELENA 1.3 VASC DUPLEX ART LE BILAT-GRAFT Right 02/17/2015 normal flow VASC DUPLEX VENOUS LE BILAT 12/23/2013 left leg DVT VASC DUPLEX VENOUS LE BILAT 01/09/2014 stable DVT of left common femoral to popliteal without progression, 3.9 cm Right johnson's cyst. XR ANKLE 3 OR MORE VIEWS 09/22/1998 arthritis and calcaneal spurring left ankle Family History Problem Relation Name Age of Onset Diabetes Mother Stroke Father Social History Socioeconomic History Marital status: Spouse name: Not on file Number of children: Not on file Years of education: Not on file Highest education level: Not on file Occupational History Not on file Tobacco Use Smoking status: Every Day Current packs/day: 0.00 Average packs/day: 0.3 packs/day for 53.0 years (13.3 ttl pk-yrs) Types: Cigars, Cigarettes Start date: 04/27/1968 Last attempt to quit: 04/27/2021 Years since quittin.4 Smokeless tobacco: Never Tobacco comments: 10/23/2024 Smoke cigars about 2 packs per week,declined pamphlet 08/31/22 4-5 little cigars, declined pamphlet Vaping Use Vaping status: Never Used Substance and Sexual Activity Alcohol use: Yes Comment: 3-4 days a week Drug use: No Sexual activity: Not on file Other Topics Concern Not on file Social History Narrative Blood type A positive Social Needs Financial Resource Strain: Not on file Food Insecurity: Not on file Transportation Needs: Not on file Social Connections: Not on file Housing Stability: Not on file REVIEW OF SYSTEMS: Cardiovascular: Reports chronic chest pains/pressures/twinges, follows with cardiology. Respiratory: reports DUBOSE, reports he does not use prescribed inhales/nebulizers. Skin: Denies ulcers. Hematology: Hx of DVT/PE. Hx of Factor V. On anticoagulation. Msk: left hip fracture 04/2021. VITAL SIGNS: BP 110/72 (BP Site: Left Arm, BP Position: Sitting, BP Cuff Size: Regular) | Pulse 54 | Ht 1.93 m (6' 4") | Wt 106.3 kg (234 lb 6.4 oz) | BMI 28.53 kg/m | BSA 2.39 m GENERAL MULTI-SYSTEM PHYSICAL EXAM: GENERAL: Normal grooming habits, no acute distress and appears stated age. RESPIRATORY: Respiratory effort normal and lungs diminished but clear. CARDIOVASCULAR: RRR, heart tones distant, no edema GASTROINTESTINAL: Obese, aorta not palpable, non-tender. SKIN: feet without ulcerations. PSYCHIATRIC: Orientation to time, place and person normal and recent and remote memory normal. EYES: sclerae normal. NEUROLOGIC: motor function grossly intact. [facility] PULSE SCALE: Carotid Right:----Bruit: No Left:----Bruit: No Radial Right: 2 Left: 2 Femoral Right: 2 Left: 2 Popliteal Right: 2 Left: 2 Dorsalis Pedis Right: 0 Left: 0 Posterior Tibial Right: 2 Left: 2 PULSE SCALE: 4=Aneurysmal; 3=Normal; 2=Diminished; 1=Barely Palpable; 0=Absent DIAGNOSTIC STUDIES: 10/09/24 CTA Abd/Pelvis: Postsurgical changes from prior infrarenal abdominal aorto bi-iliac EVAR with persistent 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 RIIA with Amplatzer Plug 09/26/24 Abd Aortic Duplex: 3.6 x 4.7 cm AAA sac, patent stent/limbs, probable endoleak left limb The above diagnostic images were directly visualized and independently interpreted by me on 10/23/24with results as above 08/18/23: aortic duplex: 3.6 cm residual sac, R limb 1.7 cm, L limb 3.3 cm 08/31/22: Aortic duplex: distal aorta 3.6cm, R limb 1.4cm, L limb 3.2cm. avascular structure in liver measuring 3.5cm. 08/17/21; Location of Study: [facility]; Modality: duplex; AAA measures 3.5 cm in greatest transversedimension. R limb 98 cm/sec, 2.2 cm, GUNNER 90, L limb 58 cm/sec, 2.7 cm, LEI 70 09/08/20: Aortic Duplex: Prox 2.5 cm, Mid 2.9 cm, Dist 3.5 cm, limbs patent, R 1.5 cm, L 1.6 cm. Noendoleak. 08/21/19: Aortic Duplex: 3.2 cm sac, limbs patent, R 1.4 cm, L 1.4 cm, no endoleak. 08/23/18: Aortic Duplex: 2.6 cm sac, limbs patent, no endoleak. 07/23/18: CT: 3.4 cm residual AAA sac (basically the size of the device). 10/05/16: CTA: Widely patent EVAR (main body and limbs) other than a few small areas interfered by artifact. Main body shows really no residual AAA sac; 3 cm. RCIA 3.1 cm. LCIA 3.1 cm. RIIA embolized. 10/05/16: Aortic Duplex: Prox 2.3 cm, Mid 2.2 cm, Dist 2.5 cm, Right limb 1.5 cm with velocity of 53, REIA 101, L-limb 1.7 cm with velocity of 111, ALMA DELIA 95 11/30/15 CTA Stable appearance of the aortobi-iliac endograft with no evidence of an endoleak. The previously described thrombus within the left iliac limb has predominantly resolved. Aortic Aneurysmal sac 3.1 cm, R DONIS aneurysma sac 3.3 cm and L DONIS 2.6 cm. 11/30/15 Aortic Duplex 2.6 cm aneurysmal sac with no endoleak. Patency demonstrated throughout. 09/18/15 Aortic Duplex Echo density once again present to mid/distal left endograft limb. 1/4/16 Aortic Duplex Aorta 108, R limb 50, R EIA 101, L Limb 100, echo density present with velocity of 65, L EIA 60. 09/07/15; Location of Study: [facility]; Modality: CT; AAA measures 3.2 cm in greatest transverse dimension. R DONIS 3.4 cm and L DONIS 2.9 cm. No evidence of endoleak. New nonocclusive intraluminal thrombus in the left common iliac artery. 03/26/15; Location of Study: [facility]; Modality: CT; AAA measures 3.2 cm in greatest transverse dimension. R DONIS 3.4 cm, L DONIS 2.6. No endoleak. 02/17/15 RLE art duplex: No pseudoaneurysm or AVF demonstrated. 02/04/15; Location of Study: [facility]; Modality: CT; AAA measures 3.2 cm in greatest transverse dimension. R DONIS 3.4 cm and L 2.6 cm. CARDIAC STUDIES: LABS: Creatinine Results: Lab Results Component Value Date/Time CREATININE - [facility] 1.1 10/08/2024 10:00 AM CREATININE - [facility] 1.1 09/12/2024 09:45 AM CREATININE - [facility] 1.0 07/12/2024 11:56 AM CREATININE - [facility] 0.93 11/05/2022 12:00 AM CREATININE - [facility] 1.0 10/24/2019 09:16 AM CREATININE - [facility] 1.1 09/21/2018 03:30 PM CREATININE - [facility] 1.1 07/19/2018 04:54 PM CREATININE POCT - [facility] 0.9 11/17/2015 08:49 AM CREATININE POCT - [facility] 1.0 09/07/2015 08:34 AM CREATININE POCT - [facility] 0.9 03/26/2015 01:54 PM Lab Results Component Value Date/Time LDL CHOLESTEROL (CALCULATED) - [facility] 80 10/29/2020 10:34 AM LDL CHOLESTEROL (CALCULATED) - [facility] 74 10/24/2019 09:16 AM LDL CHOLESTEROL (DIRECT MEASURE) - [facility] 63 08/22/2023 09:32 AM LDL CHOLESTEROL (DIRECT MEASURE) - [facility] NOT APPLICABLE 10/24/2019 09:16 AM LDL CHOLESTEROL (DIRECT MEASURE) - [facility] 101 11/05/2013 08:15 AM Hemoglobin Results: Lab Results Component Value Date/Time HGB 16.9 (H) 03/26/2024 10:09 AM HGB 16.3 08/22/2023 09:32 AM HGB 14.5 11/05/2022 12:00 AM HGB 16.7 08/09/2022 09:36 AM HGB 16.7 10/24/2019 09:16 AM HGB 15.5 09/21/2018 03:30 PM HGB 15.2 07/19/2018 04:54 PM The above clinical lab tests were reviewed by me on 10/02/24 IMPRESSIONS: 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 Leak doesnot communicate with AAA sac S/P embolization of RIIA with 16 mm Amplatzer Vascular Plug3 and repair of AAA/DONIS aneurysms with Medtronic Endurant device 02/13/[address] Lee Liver cyst seen on previous duplex studies H/O L DVT/PE 2013. Coumadin. Factor V Leiden Deficiency. 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 LAD/Circ/RCA were widely patent Mild Aortic Root Enlargement on 2023 TTe Patient is followed by [facility] HTN. Dyslipidemia. Reformed smoker 04/2021. H/O right leg crush injury. PLAN: Patient was counseled on the pathophysiology and natural history of AAA as well as the signs to initiate emergency medical attention Continue 75mg Plavix for stent patency. Continue Eliquis (for hx DVT/PE/Factor V Leiden) Continue statin with Crestor 40mg daily for Pleiotropic effects of statins Set up for endovascular repair of left common iliac artery aneurysm The patient was seen and examined with Walt Raphael MD. Trey Culver PA-C I have reviewed the advanced practitioner's documentation on the date of service referenced in note, and I agree with, and take responsibility for the plan of care. 88 year old male with history of EVAR, right IIA embolization with extension to R EIA for R CIAA Medtronic 28 mm main body, 16 mm right limb, 28 mm left limb, emergent open repair right femoral access 2014 Expansion of L DONIS now 4.1 cm in size Despite age is in good condition, lives at home, independent Discuss options (surveillance/no surveillance, open repair, coil/cover, YUMI) and he would like to proceed with YUMI with coil/cover as bailout option Should be able to do this from bilateral femoral access vs left upper extremity/left groin access We discussed risks (, MD, CVA, bleeding, clotting, embolizing, colonic ischemia, buttock ischemia, need for additional surgery) and benefits (rapidly growing DONIS leading to rupture) and he and his family would like to proceed Will get stress test and review with cardiology prior to proceeding The patient was counseled at length regarding the nature of aortic disease and the risks, benefits and alternatives of this surgery. I have discussed with the patient that they are at very high risk for the following anticipated complications due to the patient's co-morbidities including , heart attack, respiratory complications, pneumonia, bleeding, infection or urinary tract infection, stroke and the development of buttock claudication or necrosis, intestinal infarction requiring colostomy, kidney failure requiring dialysis, transfusion reaction, graft failure, wound complications such as infection or hematoma requiring surgery, paralysis, and embolus to the legs which would require additional surgery or even amputation. Less common complications discussed were deep vein thrombosis or pulmonary embolism requiring anticoagulation, nerve injury causing such things as weakness, discomfort or burning pain, dye allergy, endoleak, graft migration. The patient understands that there may be a need for immediate or late open conversion to standard aneurysm surgery. The patient understands the graft will have to be monitored life-long with periodic imaging tests such as CT scans with IV contrast. The patient understands that there may be a need for additional interventions such as angiograms, stents, and other interventional radiological or surgical procedures in the future. The patient understands the seriousness of the situation and would like to proceed with surgery. All questions were answered, and informed consent was obtained. [facility] Abdominal Aortic Aneurysm Stent Graft Booklet was given to the patient. Walt Raphael MD Section of Vascular and Endovascular Surgery [place] [address] [phone] documented in this encounter Nursing Notes * Chelsea Jefferson, CONTINUITY READER - 10/23/2024 9:56 AM EST Patient stated no change in medications. Reviewed the option of transferring scripts to [facility] pharmacy with patient and / or family. Chelsea Jefferson CMA documented in this encounter Miscellaneous Notes * Addendum Note - Trey Culver PA-C - 10/23/2024 2:20 PM ESTAddended by: TREY CULVER on: 10/23/2024 02:20 PM Modules accepted: Orders documented in this encounter Plan of Treatment Upcoming Encounters Date Type Department Care Team (Late st Contact Info) Description 11/21/2024 8:30 AM EDT Office Visit Orthopaedics [address] [phone] Edwin Staples MD [address] [place] [phone] 12/23/2024 11:45 AM EDT Office Visit Ophthalmology, [facility] [address] [place] [phone] Mau Deleon DO [address] [place] [phone] 12/25/2024 8:40 AM EDT Office Visit Family Medicine [address] [phone] Fran Peres MD [address] [place] [address] [place] [phone] 01/06/2025 Hospital Encounter [facility], OPERATING [facility], [facility] [address] [place] [phone] Walt Raphael MD [address] [place] [address] 01/22/2025 9:15 AM EDT Imaging Radiology [facility] [address] [place] [phone] 01/29/2025 10:30 AM EDT Office Visit Vascular Surgery, [facility] [address] [place] [phone] Walt Raphael MD [address] [facility] [place] [address] 08/12/2025 9:30 AM EST Office Visit Cardiology [address] [place] [phone] Jesus Alberto Montiel PA-C [address] [place] [phone] Scheduled Orders Name Type Priority Associated Diagnoses Orde r Schedule CTA ABD/PELVIS Medical Imaging Routine 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) Aortic root dilatation (HCC) CKD (chronic kidney disease), 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) 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 current use of 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 Mixed dyslipidemia History of endovascular stent graft for abdominal aortic aneurysm 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) Pre-op testing Health Maintenance Due Date Last Done Comments DISCUSS TOBACCO CESSATION (REFER TO SMARTSET #[id number]) 1935 Alpha-1 Antitrypsin 11/23/1953 Depression Screening 04/23/2021 04/23/2020 Adult Wellness Visit 05/03/2023 05/03/2022 COVID-19 Vaccine ( season) 2024 05/03/2022, 11/02/2021, 11/06/2020, Additional history exists O2 ASSESSMENT COMPLETED IN PAST YEAR FOR COPD 09/12/2025 09/12/2024 DTap/Tdap Vaccines (4 - Td or Tdap) 05/09/2033 05/09/2023, 11/05/2022, 01/15/2013, Additional history exists Pneumococcal Vaccine: 50+ Years Completed 09/22/2014, 09/17/2003 Zoster Vaccines Completed 04/02/2020, 12/10, 06/26/2012 Influenza Vaccine (FLU shot) Completed , 05/29/2024, 06/01/2023, Additional history exists HPV (Gardasil) Vaccine Aged Out No lo nger eligible based on patient's age to complete this topic Hepatitis B Vaccine Aged Out No longe r eligible based on patient's age to complete this topic MENINGOCOCCAL (MENACTRA/MENVEO) Aged Out No longer eligible based on patient's age to complete this topic documented as of this encounter Medical Devices Implanted Type Area Product Manufacturing Professional Device Identifier Shelf Expiration Date Model / Serial / Lot Graft Aaa Bif [id number] - [id number] - [id number] Implanted:Qty: 1 on 02/13/2015 by Clayton Lee MD at OR [facility] Aorta [employer] : VASCULAR 12/02/2016 [id number] / [id number] / Limb Contralat [id number] - [id number] - [id number] Implanted:Qty: 1 on 02/13/2015 by Clayton Lee MD at OR [facility] Aorta [employer] : VASCULAR 11/19/2016 [id number] / [id number] / Limb Contralat [id number] - [id number] - [id number] Implanted:Qty: 1 on 02/13/2015 by Clayton Lee MD at OR [facility] Aorta [employer] : VASCULAR [id number] / [id number] / Plug Vasc Ampl 16mm 9-[id number]-016 - [id number] Implanted:Qty: 1 on 02/13/2015 by Clayton Lee MD at OR [facility] Aorta [facility] MEDICAL TREVON 9-PLUG-0 16 / / documented as of this encounter Procedures Procedure Name Priority Date/Time Associated Diagnosis Comments DIFFERENTIAL, AUTOMATED Routine 10/23/2024 11:05 AM EST 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) Aortic root dilatation (HCC) CKD (chronic kidney disease), 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) senior care current use of 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 Mixed dyslipidemia History of endovascular stent graft for abdominal aortic aneurysm 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) Pre-op testing BASIC METABOLIC PANEL Routine 10/23/2024 11:05 AM EST 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) Aortic root dilatation (HCC) CKD (chronic kidney disease), 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) senior care current use of 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 Mixed dyslipidemia History of endovascular stent graft for abdominal aortic aneurysm 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) CBC Routine 10/23/2024 11:05 AM EST 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) Aortic root dilatation (HCC) CKD (chronic kidney disease), 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) 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 current use of 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 Mixed dyslipidemia History of endovascular stent graft for abdominal aortic aneurysm 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) Pre-op testing CBC Routine 10/23/2024 11:05 AM EST 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) Aortic root dilatation (HCC) CKD (chronic kidney disease), 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) 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 current use of 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 Mixed dyslipidemia History of endovascular stent graft for abdominal aortic aneurysm 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) Pre-op testing documented in this encounter Results * (ABNORMAL) DIFFERENTIAL, AUTOMATED (10/23/2024 11:05 AM EST) WBC 8.15 4.00 - 10.80 K/uL 10/23/2024 11:20 AM EST [facility] Neutrophils % 68.5 40.0 - 75.0 % 10/23/2024 11:20 AM EST [facility] Lymphocytes % 19.6 18.0 - 42.0 % 10/23/2024 11:20 AM EST [facility] Monocytes % 11.2(H) 1.0 - 11.0 % 10/23/2024 11:20 AM EST [facility] Eosinophils % 0.5 0.0 - 6.0 % 10/23/2024 11:20 AM EST [facility] Basophils % 0.2 0.0 - 2.0 % 10/23/2024 11:20 AM EST [facility] Absolute Neutrophils 5.58 1.80 - 7.70 K/uL 10/23/2024 11:20 AM EST [facility] Absolute Lymphocytes 1.60 1.00 - 4.80 K/ul 10/23/2024 11:20 AM EST [facility] Absolute Monocytes 0.91 0.00 - 1.10 K/uL 10/23/2024 11:20 AM EST [facility] Absolute Eosinophils 0.04 0.00 - 0.70 K/uL 10/23/2024 11:20 AM EST [facility] Absolute Basophils 0.02 0.00 - 0.20 K/uL 10/23/2024 11:20 AM EST [facility] Blood Venous blood specimen / Unknown Venipuncture / Unknown 10/23/2024 11:05 AM EST 10/23/2024 11:05 AM EST us Trey Culver PA-C LAB BLOOD ORDERABLES Fin al Result [facility] [place] [id number] * (ABNORMAL) CBC (10/23/2024 11:05 AM EST) WBC 8.15 4.00 - 10.80 K/uL 10/23/2024 11:20 AM EST [facility]ORY [facility] 57[facility]10 RBC 5.31 4.50 - 5.25 M/uL 10/23/2024 11:20 AM EST [facility] 57[facility]10 HGB 17.1(H) 14.0 - 16.8 g/dL 10/23/2024 11:20 AM EST [facility]10 HCT 51.5(H) 40.0 - 48.4 % 10/23/2024 11:20 AM EST [facility] MCV 97.0 82.0 - 99.5 fL 10/23/2024 11:20 AM EST [facility]10 MCH 32.2 27.0 - 34.0 pg 10/23/2024 11:20 AM EST [facility] MCHC 33.2 32.0 - 36.0 g/dL 10/23/2024 11:20 AM EST [facility]10 RDW 14.4 11.5 - 15.5 % 10/23/2024 11:20 AM EST [facility]10 PLT 206 140 - 400 K/uL 10/23/2024 11:20 AM EST [facility]10 MPV 9.8 6.6 - 11.1 fL 10/23/2024 11:20 AM EST [facility] 57[facility]10 Blood Venous blood specimen / Unknown Venipuncture / Unknown 10/23/2024 11:05 AM EST 10/23/2024 11:05 AM EST us Trey Culver PA-C LAB BLOOD ORDERABLES Fin al Result [facility] 57[facility]10 [address] [place] [id number] * BASIC METABOLIC PANEL (10/23/2024 11:05 AM EST) BUN 17 6 - 20 mg/dL 10/23/2024 12:14 PM EST [facility] [address]Liane CREATININE 1.1 0.6 - 1.2 mg/dL 10/23/2024 12:14 PM EST [facility] EGFR 68 >=60 mL/min 10/23/2024 12:14 PM EST [facility] Comment:eGFR is calculated b ased on the CKD-EPI 2020 equation. SODIUM 142 135 - 146 mmol/L 10/23/2024 12:14 PM EST [facility] POTASSIUM 4.4 3.5 - 5.1 mmol/L 10/23/2024 12:14 PM EST [facility] CHLORIDE 103 98 - 107 mmol/L 10/23/2024 12:14 PM EST [facility] CO2 26 22 - 32 mmol/L 10/23/2024 12:14 PM EST [facility] ANION GAP 13 7 - 15 mmol/L 10/23/2024 12:14 PM EST [facility] GLUCOSE 110 70 - 120 mg/dL 10/23/2024 12:14 PM EST [facility] CALCIUM 10.2 8.4 - 10.2 mg/dL 10/23/2024 12:14 PM EST [facility] Blood Venous blood specimen / Unknown Venipuncture / Unknown 10/23/2024 11:05 AM EST 10/23/2024 11:05 AM EST Trey Culver PA-C LAB BLOOD ORDERABLES Fin al Result Performing Organization Address City/State/[facility] Co de Phone Number [facility]ATORY [facility] [address] [facility] [place] [phone] documented in this encounter Visit Diagnoses Diagnosis 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)- Primary 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) Aortic root dilatation (HCC) 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), stage II Chronic kidney disease, Stage II (mild) 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) Primary hypercoagulable state senior care current use of 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 Mixed dyslipidemia Mixed hyperlipidemia History of endovascular stent graft for abdominal aortic aneurysm Blood vessel replaced by other means Pre-op testing Preoperative examination, unspecified 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) Abdominal aortic aneurysm without rupture (HCC) Abdominal aneurysm without mention of rupture Aortic root dilatation (HCC) 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), stage II Chronic kidney disease, Stage II (mild) 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) Primary hypercoagulable state senior care current use of 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 Mixed dyslipidemia Mixed hyperlipidemia History of endovascular stent graft for abdominal aortic aneurysm Blood vessel replaced by other means Pre-op testing Preoperative examination, unspecified documented in this encounter Advance Directives * Full Code (Latest Code Status on File) Date Activated Date Inactivated Comments 09/22/2015 9:05 AM 09/23/2015 1:51 PM This order r eflects the patients wishes and were consensually agreed upon. * Full Code Date Activated Date Inactivated Comments 02/13/2015 2:03 PM 02/14/2015 5:50 PM This order ref lects the patients wishes and were consensually agreed upon. Care Teams Instrument Lens Grinder Apprentice Relationship Specialty Start Date End Date Fran Peres MD [address] [place] [address] [place] [id number] PCP - General Family Medicine 12/13/23 documented as of this encounter
--- OUTSIDE RECORDS SUMMARY | 2024-12-03 16:51 | External Medical Summary | Summary of Care ---
Author Name Unknown Organization [facility] Address [address] [place] [address] Phone [phone] Care Team Providers Care Director Medical Safety Name Role Phone Fran Peres MD Primary Care Provide r Reason for Visit * Reason Comments Medication Refill Encounter Details Date Type Department Care Team (Late st Contact Info) Description 11/25/2024 Refill Family Medicine [address] [place] [address] Roni Kenyon MD [address] [place] [address] [place] [address] Coronary artery calcification Allergies No known active allergiesdocumented as of this encounter (statuses as of 11/26/2024) Medications Cyanocobalamin (VITAMIN B-12) 6000 MCG SUBL [...] Solution (Duoneb)Indicatio ns:COPD, 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 determined (HCC) Inhale 3 mL by mouth every 6 hours as needed for Shortness of Breath. 372 mL 5 01/15/20 21 Active Docusate Sodium 100 MG Oral Capsule (Colace)Indicatio ns:Constipation, unspecified constipation type Take 1 Cap by mouth daily. 60 Cap 2 06/25/20 21 Active Additional Information Patient taking differently:100 mg OralPRN, Reported on 10/23/2024 Calcium 200 MG Oral Tablet Take 200 mg by mouth in the morning. Active Isosorbide Mononitrate ER 30 MG Oral Tablet Extended Release 24 Hour (Imdur)Indication s:Coronary artery calcification Take 0.5 Tablets by mouth in the morning. 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 60 Tablet 5 5 7:28 AM EST 07/12/20 24 Active Allopurinol 100 MG Oral Tablet (Zyloprim)Indicat ions:Gouty arthropathy Take 1 Tablet by mouth in the morning. 90 Tablet 1 5 3:45 PM EST 07/12/20 24 Active Sertraline HCl 50 MG Oral Tablet (Zoloft)Indicatio ns:Anxiety Take 1 Tablet by mouth in the morning. 90 Tablet 1 5 5:43 PM EST 07/30/20 24 Active Loratadine 10 MG Oral Tablet (Claritin)Indicat ions:Tinnitus of both ears Take 1 Tablet by mouth in the morning. 30 Tablet 09/12/19 25 Active busPIRone HCl 10 MG Oral Tablet (Buspar)Indicatio ns:PURVI (generalized anxiety disorder) Take 1 Tablet by mouth in the morning and 1 Tablet before bedtime. 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 200 Tablet 1 5 10:27 AM EST 10/22/19 25 Active predniSONE 20 MG Oral Tablet (Deltasone)Indica tions:Rib pain on left side One daily 10 Tablet 10/31/19 25 Active Rosuvastatin Calcium 40 MG Oral Tablet (Crestor)Indicati ons:Mixed dyslipidemia TAKE ONE TABLET BY MOUTH EVERY DAY AT BEDTIME 100 Tablet 1 4 12:47 PM EST 05/14/20 24 025 Discontin ued(Refil l) Hospital, Clinic, or Other Facility Administered Medication [...] as of this encounter (statuses as of 11/26/2024) Active Problems Problem Noted Date Diagnosed Date [...] 07/16/2020 Primary 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 of both knees 08/01/2019 penitentiary current use of 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 0 03/04/2019 Actinic keratosis 12/12/2018 Atherosclerosis of [place] 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[place] heart without angina pectoris 04/19/2018 Abdominal aortic aneurysm without rupture 2015 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 09/14/2015 Factor V 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 12/30/2013 Overview (12/30/2013): has one copy of Factor V 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 Mixed dyslipidemia 11/25/2009 GENERAL OSTEOARTHROSIS Tobacco use disorder Exudative age-related macula r degeneration of both eyes with active choroidal neovascularization documented as of this encounter (statuses as of 11/26/2024) Resolved Problems Problem Noted Date Diagnosed Date [...] of pulmonary artery 12/23/2013 04/19/2018 Overview (12/25/2013): Cecil Lama Encounter for examination fo r normal comparison [...] as of this encounter (statuses as of 11/26/2024) Immunizations Name Administration Dates Next Due COVID-19 mRNA, LNP-s, No Pre serve, 2-Dose Series (Moderna) 11/06/2020,10/09/2020 COVID-19, LNP-s, No Preserve , Seng-sucrose, Ages 12+ (Pfizer) 05/03/2022 COVID-19, mRNA, LNP-s, PF, B ooster, 100mcg/0.5mg (Moderna) 11/02/2021 Pneumococcal Conjugate Vacc, 13 Valent (Prevnar) 09/22/2014 Season Influenza, Quad, PF, Adjuvanted, 65+ Yrs, IM (FLUAD) 05/12/2021,06/01/2020 Seasonal Influenza Vac., MDV , IM, 0.5 mL (Fluzone) 05/28/2015,06/05/2014,06/04/2013,2011,05/15/2012,05/31/2011,06/08/2010,0 05/29/2009,07/22/2008,06/21/2007, 006 Seasonal Influenza, High Dos e, Trivalent, PF, [...] to quit: 04/27/2021 Cigars Smokeless Tobacco: Never Comments:10/23/2024 Smoke cig ars about 2 packs per week,declined pamphlet 08/31/22 [...] on file documented as of this encounter Miscellaneous Notes * Telephone Encounter - Laurie Bell RPh - 11/26/2024 9:44 AM EDT The original prescription was discontinued on 09/05/2024 by Caro Leahy RN for the followingreason: Medication List Clean Up. Renewing this prescription may not be appropriate. * Telephone Encounter - Laurie Bell RPh - 11/26/2024 9:44 AM EDT Refused Prescriptions: Disp Refills Isosorbide Mononitrate ER 30 MG Oral Table*50 Tab*3 Sig: Take one-half Tablet by mouth in the morning.Refused By: LAURIE BELL for Refusal: Courseof treatment complete documented in this encounter Plan of Treatment Upcoming Encounters Date Type Department Care Team (Late st Contact Info) Description 12/23/2024 11:45 AM EDT Office Visit Ophthalmology, [facility] [address] [place] [address] Mau Deleon, [address] [place] [address] 12/25/2024 8:40 AM EDT Office Visit Family Medicine [address] [phone] Fran Peres MD [address] [place] [address] [place] [address] 01/06/2025 7:15 AM EDT Hospital [place] [facility] [facility] [address] [place] [address] Walt Raphael MD [address] [place], [place] [phone] 01/06/2025 7:15 AM EDT - 01/06/2025 10:25 AM EDT Surgery [place] [facility] [facility] [address] [place] [address] Walt Raphael MD [address] [facility] [place] [address] ENDOVASCULAR REPAIR [facility] RADIOLOG[facility] SUPERVISION & INTERPRETATION ONE ENDOPROSTHESIS 01/22/2025 9:15 AM EDT Imaging Radiology [address] [place] [phone] 01/29/2025 10:30 AM EDT Office Visit Vascular Surgery, [facility] [address] [place] [phone] Walt Raphael MD [address] [place] [address] 08/12/2025 9:30 AM EST Office Visit Cardiology [address] [place] [phone] Jesus Alberto Montiel PA-C [address] [place], [place] [address] Scheduled Procedures Name Priority Associated Diagnoses Date/Ti me ENDOVASCULAR REPAIR [facility] [facility] 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) Pre-op testing 01/06/2025 7:15 AM EDT OPEN BRACHIAL ARTERY EXPOSURE FOR ENDOVASCULAR PROSTHESIS 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) Aortic root dilatation (HCC) CKD (chronic kidney disease), 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) 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 Mixed dyslipidemia History of endovascular stent graft for abdominal aortic aneurysm 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) Pre-op testing 01/06/2025 7:15 AM EDT Health Maintenance Due Date Last Done Comments DISCUSS TOBACCO CESSATION (REFER TO SMARTSET #[id number]) 1935 Alpha-1 Antitrypsin 11/23/1953 Depression Screening 04/23/2021 04/23/2020 Adult Wellness Visit 05/03/2023 05/03/2022 COVID-19 Vaccine ( season) 2024 05/03/2022, 11/02/2021, 11/06/2020, Additional history exists O2 ASSESSMENT COMPLETED IN PAST YEAR FOR COPD 09/12/2025 09/12/2024 DTap/Tdap Vaccines (3 - Td or Tdap) 05/09/2033 05/09/2023, 01/15/2013, 09/18/2007 Pneumococcal Vaccine: 50+ Years Completed 09/22/2014, 09/17/2003 Zoster Vaccines Completed 04/02/2020, 12/10, 06/26/2012 Influenza Vaccine (FLU shot) Completed , 06/01/2023, 05/30/2022, Additional history exists HPV (Gardasil) Vaccine Aged Out No lo nger eligible based on patient's age to complete this topic Hepatitis B Vaccine Aged Out No longe r eligible based on patient's age to complete this topic MENINGOCOCCAL (MENACTRA/MENVEO) Aged Out No longer eligible based on patient's age to complete this topic Meningitis B Vaccine (Bexsero/Trumemba) Aged Out No longer eligible based on patient's age to complete this topic documented as of this encounter Medical Devices Implanted Type Area Mothers Helper Device Identifier Shelf Expiration Date Model / Serial / Lot Graft Aaa Bif [id number] - [id number] - [id number] Implanted:Qty: 1 on 02/13/2015 by Clayton Lee MD [place] [facility] Aorta [employer] : VASCULAR 12/02/2016 [id number] / [id number] / Limb Contralat [id number] - [id number] - [id number] Implanted:Qty: 1 on 02/13/2015 by Clayton Lee MD [place] [facility] [place]orta [employer] : VASCULAR 11/19/2016 [id number] / [id number] / Limb Contralat [id number] - [id number] - [id number] Implanted:Qty: 1 on 02/13/2015 by Clayton Lee MD [place] [facility] Aorta [employer] : VASCULAR [id number] / [id number] / Plug Vasc Ampl 16mm 9-Plug-016 - [id number] Implanted:Qty: 1 on 02/13/2015 by Clayton Lee MD [place] [facility] Aorta [employer] MEDICAL TREVON 9-PLUG-0 16 / / documented as of this encounter Visit Diagnoses Diagnosis 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) Abdominal aortic aneurysm without rupture (HCC) Abdominal aneurysm without mention of rupture Aortic root dilatation (HCC) 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), stage II Chronic kidney disease, Stage II (mild) 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) Primary hypercoagulable state penitentiary current use of 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 Mixed dyslipidemia Mixed hyperlipidemia History of endovascular stent graft for abdominal aortic aneurysm Blood vessel replaced by other means Pre-op testing Preoperative examination, unspecified Coronary artery calcification Coronary atherosclerosis of unspecified type of vessel, [place] or graft 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) Aortic root dilatation (HCC) 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), stage II Chronic kidney disease, Stage II (mild) 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) Primary hypercoagulable state penitentiary current use of 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 Mixed dyslipidemia Mixed hyperlipidemia History of endovascular stent graft for abdominal aortic aneurysm Blood vessel replaced by other means 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 Care Teams Director Medical Safety Relationship Specialty Start Date End Date Fran Peres MD [address] [place] [address] [place] [address] PCP - General Family Medicine 12/13/23 documented as of this encounter
--- OUTSIDE RECORDS SUMMARY | 2024-12-03 16:51 | External Medical Summary | Summary of Care ---
Author Name Unknown Organization [facility] Address [address] [place] [address] Phone [phone] Care Team Providers Care Tin Worker Name Role Phone Fran Peres MD Primary Care Provide r Reason for Visit * Reason Onset Date Comments STAIR AAA 10/24/2024 Encounter Details Date Type Department Care Team (Late st Contact Info) Description 10/24/2024 Telephone STAIR AAA [address] [place], [place] [phone] Program, Stair [address] [place] [address] STAIR AAA Allergies No known active allergiesdocumented as of this encounter (statuses as of 10/24/2024) Medications Cyanocobalamin (VITAMIN B-12) 6000 MCG SUBL [...] Release 24 Hour (toPROL XL)Indications:At herosclerosis of [place] coronary artery of [place] heart without angina pectoris TAKE 1 TABLET [...] ons: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),Homozygous MTHFR mutation A7362P,Hx pulmonary embolism Take 1 Tablet by mouth [...] as of this encounter (statuses as of 10/24/2024) Active Problems Problem Noted Date Diagnosed Date History of endovascular sten t graft for abdominal aortic aneurysm 10/23/2024 Type Ib endoleak of aortic graft 10/23/2024 Pre-op testing 10/23/2024 Other emphysema 12/13/2023 BMI 26.0-26.9,adult 11/08/2022 Emphysema of lung 07/07/2021 Aortic root dilatation 07/07/2021 Ascending aortic aneurysm 07/07/2021 Nonrheumatic mitral valve regurgitation 07/07/20 21 CKD (chronic kidney disease), stage II 1 Overview (04/29/2021): EGFR 66.5 Hx pulmonary embolism 07/16/2020 Primary 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 of both knees 08/01/2019 [facility] current use of 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 0 03/04/2019 Actinic keratosis 12/12/2018 Atherosclerosis of [place] 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[place] heart without angina pectoris 04/19/2018 Abdominal aortic aneurysm without rupture 2015 Homozygous MTHFR mutation Q2137T 09/14/2015 Factor V 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 12/30/2013 Overview (12/30/2013): has one copy of Factor V 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 Mixed dyslipidemia 11/25/2009 GENERAL OSTEOARTHROSIS Tobacco use disorder Exudative age-related macula r degeneration of both eyes with active choroidal neovascularization documented as of this encounter (statuses as of 10/24/2024) Resolved Problems Problem Noted Date Diagnosed Date [...] as of this encounter (statuses as of 10/24/2024) Immunizations Name Administration Dates Next Due COVID-19 [...] encounter Miscellaneous Notes * Telephone Encounter - Sofia Alston LPN - 10/24/2024 9:12 AM EST AAA - Clinical Summary Name: Jeff Powers Age: [age] year old AAA Review: Follow-up Follow-up Encounter Provider: Walt Raphael MD Patient Identified by: Problem List Report Imaging Interpretation: CTA Type of Result: SP EVAR AAA Care Plan Imaging Recommendation: CTA - details below Details: after endoleak repair AAA Care Plan Visit Recommendation: Return visit in Vascular Surgery Details: after endoleak repair Next steps: No action needed at this time. Patient was seen by vascular surgery yesterday. Next clinic visit with testing prior is already scheduled. Will continue to track. Time spent: 10 minutes Sofia Alston LPN Coordinator STAIR (System to Track Abnormalities of Importance Reliably) CTA ABD/PELVIS 10/09/2024 Narrative EXAM: CTA ABDOMEN PELVIS WITH CONTRAST HISTORY: S/P EVAR COMPARISON: CT abdomen from 07/23/2018 TECHNIQUE: CTA abdomen pelvis with intravenous contrast was performed. Reformatted MIP images were obtained and reviewed. CONTRAST: 80 ml intravenously. FINDINGS: LOWER CHEST: Bibasilar atelectasis. Small hiatal hernia. Coronary artery atherosclerosis. LIVER: Simple appearing hepatic cyst in the left lobe of the liver. GALLBLADDER/BILE DUCTS: Cholelithiasis. PANCREAS: Unremarkable. GI TRACT: Scattered colonic diverticula. No evidence of bowel obstruction. SPLEEN: Unremarkable. LYMPH NODES: No lymphadenopathy. ADRENAL GLANDS: Unremarkable. KIDNEYS/URETERS: Bilateral simple appearing renal cysts. No hydronephrosis. URINARY BLADDER: Unremarkable. REPRODUCTIVE ORGANS: Prostatomegaly with dystrophic calcification enhance sing nodules. VASCULATURE: Postsurgical changes from prior infrarenal abdominal aorto bi-iliac EVAR. Persistent filling of the left common iliac artery aneurysm distal to the left iliac limb measuring up to 41 mm.Right iliac limb excluded aneurysm is thrombosed. Amplatzer plug occlusion of the right internal iliac artery. Left internal iliac artery is patent. Celiac, SMA and renal arteries are patent. MISCELLANEOUS: No free fluid or free air. MUSCULOSKELETAL: Left femur fixation. Polyarticular degenerative changes. No acute osseous abnormalities. Impression : Postsurgical changes from prior infrarenal abdominal aorto bi-iliac EVAR with persistent filling ofthe left common iliac artery aneurysm distal to the left iliac limb with aneurysmal degeneration now measuring up to 41 mm, previously measuring up to 31 mm. documented in this encounter Plan of Treatment Upcoming Encounters Date Type Department Care Team (Late st Contact Info) Description 11/21/2024 8:30 AM EDT Office Visit Orthopaedics [address] [phone] Edwin [facility] [place] [address] 12/23/2024 11:45 AM EDT Office Visit Ophthalmology, [facility] [address] [place] [address] Mau Deleon DO [address] [place] [address] 12/25/2024 8:40 AM EDT Office Visit Family Medicine [address] [place] [phone] Fran Peres MD [address] [place] [address] [place] [address] 01/06/2025 Hospital Encounter OR [facility], OPERATING ROOM [facility] [address] [place] [address] Walt Raphael MD [address] [place] [address] 01/22/2025 9:15 AM EDT Imaging Radiology [address] [place] [phone] 01/29/2025 10:30 AM EDT Office Visit Vascular Surgery, [facility] [address] [place] [address] Walt Raphael MD [address] [place] [address] 08/12/2025 9:30 AM EST Office Visit Cardiology [address] [place] [address] Jesus Alberto Montiel PA-C [address] [place] [address] Scheduled Procedures Name Priority Associated Diagnoses Date/Ti me ENDOVASCULAR REPAIR 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) Aortic root dilatation (HCC) CKD (chronic kidney disease), 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) 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 Mixed dyslipidemia History of endovascular stent graft for abdominal aortic aneurysm 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) Pre-op testing OPEN BRACHIAL ARTERY EXPOSUR E FOR ENDOVASCULAR PROSTHESIS 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) Aortic root dilatation (HCC) CKD (chronic kidney disease), 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) [facility] current use of 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 Mixed dyslipidemia History of endovascular stent graft for abdominal aortic aneurysm 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) Pre-op testing Health Maintenance Due Date Last Done Comments DISCUSS TOBACCO CESSATION (REFER TO SMARTSET #5752) 1935 Alpha-1 Antitrypsin 11/23/1955 Depression Screening 04/23/2021 [...] this encounter Medical Devices Implanted Type Area Biophysics Professor Device Identifier Shelf Expiration Date Model / Serial / Lot Graft Aaa Bif [id number] - [id number] - [id number] Implanted:Qty: 1 on 02/13/2015 by Clayton Lee MD at [place] [facility] Aorta [employer] : VASCULAR 12/02/2016 [id number] / [id number] / Limb Contralat [id number] - [id number] - [id number] Implanted:Qty: 1 on 02/13/2015 by Clayton Lee MD at [place] [facility] Aorta [employer] : VASCULAR 11/19/2016 [id number] / [id number] / Limb Contralat [id number] - [id number] - [id number] Implanted:Qty: 1 on 02/13/2015 by Clayton Lee MD at [place] [facility] Aorta [employer] : VASCULAR [id number] / [id number] / Plug Vasc Ampl 16mm 9-Plug-016 - [id number] Implanted:Qty: 1 on 02/13/2015 by Clayton Lee MD at OR [facility] Kabb[employer] 9-PLUG-0 16 / / documented as of this encounter Advance Directives * Full Code (Latest Code Status on File) Date Activated Date Inactivated Comments 09/22/2015 9:05 AM 09/23/2015 1:51 PM This order r eflects the patients wishes and were consensually agreed upon. * Full Code Date Activated Date Inactivated Comments 02/13/2015 2:03 PM 02/14/2015 5:50 PM This order ref lects the patients wishes and were consensually agreed upon. Care Teams Tin Worker Relationship Specialty Start Date End Date Fran Peres MD [address] [place] [address] [place] [address] PCP - General Family Medicine 12/13/23 documented as of this encounter
--- OUTSIDE RECORDS SUMMARY | 2024-12-03 16:51 | External Medical Summary | Summary of Care ---
Author Name Unknown Organization [facility] Address [address] 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 200 Tablet 1 5 10:27 AM EST 10/22/19 25 Active predniSONE 20 MG Oral Tablet (Deltasone)Indica tions:Rib pain on left side One daily 10 Tablet 10/31/19 25 Active Rosuvastatin Calcium 40 MG Oral Tablet (Crestor)Indicati ons:Mixed dyslipidemia TAKE ONE TABLET BY MOUTH EVERY DAY AT BEDTIME 100 Tablet 11/27/19 25 Active Rosuvastatin Calcium 40 MG Oral [...] aneurysm 07/07/2021 Nonrheumatic mitral valve regurgitation 07/07/20 CKD (chronic kidney disease), stage II Overview (04/29/2021): EGFR 66.5 Hx pulmonary embolism 07/16/2020 Primary 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 of both knees 08/01/2019 meterman current use of 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 0 03/04/2019 Actinic keratosis 12/12/2018 Atherosclerosis of [place] 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 Zero refills given until upcoming ov. Thank you, Rodney Queen, PharmD Clinical Pharmacist [facility] 11/26/24 10:05 AM [phone] documented in this encounter Plan of Treatment Upcoming Encounters Date Type Department Care Team (Late st Contact Info) Description 12/23/2024 11:45 AM EDT Office Visit Ophthalmology, [facility] [address] [place] [address] Torsten Deleon DO [address] [place] [address] 12/25/2024 8:40 AM EDT Office Visit Family Medicine [address] [place] [address] Kalpana Briceno MD [address] [place] [address] [place] [address] 01/06/2025 7:15 AM EDT Hospital Encounter [facility], OPERATING ROOM [facility], NATALIE BARRAZA [address] [place] [address] Walt Raphael MD [address], [place] [phone] 01/06/2025 7:15 AM EDT - 01/06/2025 10:25 AM EDT Surgery [facility], OPERATING [facility]OM [facility] [address] [place] [address] Walt Raphael MD [address] [place] [address] ENDOVASCULAR REPAIR [employer] RADIOLOGY SUPERVISION & INTERPRETATION ONE ENDOPROSTHESIS 01/22/2025 9:15 AM EDT Imaging Radiology [address] [place] [phone] 01/29/2025 10:30 AM EDT Office Visit Vascular Surgery, [facility] [address] [place] [phone] Walt Raphael MD [address], [place] [phone] 08/12/2025 9:30 AM EST Office Visit Cardiology [address] [place] [address] Jesus Alberto Montiel PA-C [address] [place] [address] Scheduled Procedures Name Priority Associated Diagnoses Date/Ti me ENDOVASCULAR REPAIR [employer] 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) Pre-op testing 01/06/2025 7:15 AM EDT OPEN BRACHIAL ARTERY EXPOSURE FOR ENDOVASCULAR PROSTHESIS 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) Aortic root dilatation (HCC) CKD (chronic kidney disease), 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) meterman current use of 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 Mixed dyslipidemia History of endovascular stent graft for abdominal aortic aneurysm 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) Pre-op testing 01/06/2025 7:15 AM EDT Health Maintenance Due Date Last Done Comments DISCUSS TOBACCO CESSATION (REFER TO SMARTSET #3035) 1935 Alpha-1 Antitrypsin 11/23/1953 Depression Screening 04/23/2021 [...] this encounter Medical Devices Implanted Type Area Sleep Tech Device Identifier Shelf Expiration Date Model / Serial / Lot Graft Aaa Bif [id number] - [id number] - [id number] Implanted:Qty: 1 on 02/13/2015 by Clayton Lee MD at OR [facility] Aorta [employer] : VASCULAR 12/02/2016 [id number] / [id number] / Limb Contralat [id number] - [id number] - [id number] Implanted:Qty: 1 on 02/13/2015 by Clayton Lee MD at OR [facility] Aorta [employer] : VASCULAR 11/19/2016 [id number] / [id number] / Limb Contralat [id number] - [id number] - [id number] Implanted:Qty: 1 on 02/13/2015 by Clayton Lee MD at OR [facility] Aorta [employer] : VASCULAR [id number] / [id number] / Plug Vasc Ampl 16mm 9-Plug-016 - [id number] Implanted:Qty: 1 on 02/13/2015 by Clayton Lee MD at OR [facility] Aorta [employer] MEDICAL TREVON 9-PLUG-0 16 / / documented [...] V 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 (HCC) Primary hypercoagulable state meterman current use of 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 Mixed dyslipidemia Mixed hyperlipidemia History of endovascular stent graft for abdominal aortic aneurysm Blood vessel replaced by other means Pre-op testing Preoperative examination, unspecified Mixed dyslipidemia Mixed hyperlipidemia 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) Aortic root dilatation (HCC) 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), stage II Chronic kidney disease, Stage II (mild) 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) Primary hypercoagulable state meterman current use of 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 Mixed dyslipidemia [...] and were consensually agreed upon. Care Teams News Videographer Relationship Specialty Start Date End Date Kalpana Briceno MD [address] [place] [address] [place] [address] PCP - General Family Medicine 12/13/23 documented as of this encounter
--- OUTSIDE RECORDS SUMMARY | 2024-12-03 16:51 | External Medical Summary | Summary of Care ---
Author Name Unknown Organization [facility] Address [address] [place] [address] Phone [phone] Care Team Providers Care Server Programmer Name Role Phone Fran Peres MD Primary [...] CTA ABD/PELVIS Trey Culver PA-C [address] [place] [address] Phone: tel: fax: Referral ID Status Reason Start Date Expiration Date V isits Requested Visits Authorized [id number] Authorized 10/23/2024 999 999 Reason for Visit * Reason Comments Follow Up Encounter Details Date Type Department Care Team (Latest Contact Info) Description 10/23/2024 10:10 AM EST Office Visit Vascular Surgery, [facility] [address] [facility] [place] [address] Walt Raphael MD [address] [place] [address] 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)*; 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); Aortic root dilatation (HCC); CKD (chronic kidney disease), stage II; 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); FDC current use of 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; Mixed dyslipidemia; [...] Solution (Duoneb)Indicatio ns:COPD, 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 determined ([facility]) Inhale 3 mL by mouth every [...] Release 24 Hour (toPROL XL)Indications: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 E1205N 09/18/2015 [facility] HTN, goal below 140/90 Iliac artery thrombosis, 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 [facility] Internal hemorrhoids 07/24/2007 Macular degeneration (senile) of retina 06/26/2014 Nonexudative age-related macular degeneration, bilateral, intermediate dry stage Other seborrheic keratosis 06/17/2002 [place]-surgical removal under local anesthesia Saddle embolus of pulmonary artery (HCC) 12/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 Lee. FEM/POP ARTERY REVASC W/ STENT+ANGIOPLASTY Left 09/22/2015 FEM/POP ARTERY REVASC W/ STENT+ANGIOPLASTY performed by Clayton Lee MD at OR [facility] INJECTION OF EYE DRUG Right 07/05/2017 # [...] Left 05/08/2018 # 5 Eylea OS, Dr. eDleon INJECTION OF EYE DRUG Right 07/17/2018 # [...] Left 09/29/2022 # 22 Eylea OS, Dr. Deleon INJECTION OF EYE DRUG Left 12/12/2022 # [...] performed by Clayton Lee MD at OR [facility] IR EMBOLIZATION ARTERIAL NON HEMMORHAGE Right 02/13/2015 right iliac IR EMBOLIZATION ARTERIAL NON HEMMORHAGE Right 02/13/2015 Embolization of right internal iliac artery with 16 mm Amplatzer Vascular Plug by Dr. Lee. IR FILTER REMOVAL VENA CAVA 01/27/2014 IR PLACEMENT IVC FILTER 12/23/2013 [facility] LIGATION/BIOPSY OF TEMPORAL ARTERY Bilateral 09/28/2018 no vasculitis seen MISCELLANEOUS ORDER ([facility] ONLY) Bilateral 07/05/17-07/05/18 EYLEA OU CONSENT SIGNED, Dr. Adrienne MICHELLE ORDER ([facility] ONLY) Bilateral 07/17/2018-07/17/2019 EYLEA CONSENT OU SIGNED; DR ADRIENNE MICHELLE ORDER ([facility] ONLY) Bilateral 07/25/2019-07/25/2020 EYLEA CONSENT OU SIGNED; DR ADRIENNE MICHELLE ORDER ([facility] ONLY) ACT 112 signed, 11/14/2019 OTHER (INFORMATION) [...] performed by Clayton Lee MD at OR [facility] US AAA SCREEN, VASCULAR LAB N/A 10/05/2016 [...] sclerae normal. NEUROLOGIC: motor function grossly intact. [facility] PULSE SCALE: Carotid Right:----Bruit: No Left:----Bruit: No [...] liver measuring 3.5cm. 08/17/21; Location of Study: [facility]; Modality: duplex; AAA measures 3.5 cm in [...] on 2023 TTe Patient is followed by [facility] Cardiology HTN. Dyslipidemia. Reformed smoker 04/2021. H/O [...] extremity/left groin access We discussed risks (, ID, CVA, bleeding, clotting, embolizing, colonic ischemia, buttock [...] answered, and informed consent was obtained. The [facility] Abdominal Aortic Aneurysm Stent Graft Booklet was given to the patient. Walt Raphael MD Section of Vascular and Endovascular Surgery [facility] [place] [address] [phone] documented in this encounter Nursing Notes * Chelsea Jefferson, LAUNDRY FOLDER - 10/23/2024 9:56 AM EST Patient stated no change in medications. Reviewed the option of transferring scripts to [facility] pharmacy with patient and / or family. [...] 11/21/2024 8:30 AM EDT Office Visit Orthopaedics [address] [phone] Edwin Staples MD [address] [place] [phone] 12/23/2024 11:45 AM EDT Office Visit Ophthalmology, [facility] [address] [place] [address] Mau Deleon DO [address] [place] [address] 12/25/2024 8:40 AM EDT Office Visit Family Medicine [address] [phone] Fran Peres MD [address] [place] [address] [place] [address] 01/06/2025 Hospital Encounter [facility] OPERATING [facility]OM [facility] [address] [place] [phone] Walt Raphael MD [address] [place] [address] 01/22/2025 9:15 AM EDT Imaging Radiology [facility] [address] [place] [phone] 01/29/2025 10:30 AM EDT Office Visit Vascular Surgery, [facility] [address] [place] [address] Walt Raphael MD [address] [facility] [place] [address] 08/12/2025 9:30 AM EST Office Visit Cardiology [address] [place] [address] Jesus Alberto Montiel PA-C [address] [place] [address] Scheduled Orders Name Type Priority Associated Diagnoses Orde r Schedule CTA ABD/PELVIS Medical Imaging Routine 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) Aortic root dilatation (HCC) CKD (chronic kidney disease), 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) oysterman current use of 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 Mixed dyslipidemia [...] 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) oysterman current use of 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 Mixed dyslipidemia History of endovascular stent graft for abdominal aortic aneurysm 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) Pre-op testing Health Maintenance Due Date Last Done Comments DISCUSS TOBACCO CESSATION (REFER TO SMARTSET #3296) 1935 Alpha-1 Antitrypsin 11/23/1953 Depression Screening 04/23/2021 [...] this encounter Medical Devices Implanted Type Area Boring Mill Set Up Operator Device Identifier Shelf Expiration Date Model / Serial / Lot Graft Aaa Bif [id number] - [id number] - [id number] Implanted:Qty: 1 on 02/13/2015 by Clayton Lee MD at OR [facility] Aorta [employer] : VASCULAR 12/02/2016 [id number] / [id number] / Limb Contralat [id number] - [id number] - [id number] Implanted:Qty: 1 on 02/13/2015 by Clayton Lee MD at OR [facility] Aorta [employer] : VASCULAR 11/19/2016 [id number] / [id number] / Limb Contralat [id number] - [id number] - [id number] Implanted:Qty: 1 on 02/13/2015 by Clayton Lee MD at OR [facility] Aorta [employer] : VASCULAR [id number] / [id number] / Plug Vasc Ampl 16mm 9-Plug-016 - [id number] Implanted:Qty: 1 on 02/13/2015 by Clayton Lee MD at OR [facility] Aorta [facility] MEDICAL TREVON 9-PLUG-0 16 / / [...] 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) oysterman current use of 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 Mixed dyslipidemia History of endovascular stent graft for abdominal aortic aneurysm 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) Pre-op testing CBC Routine 10/23/2024 11:05 AM EST 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) Aortic root dilatation (HCC) CKD (chronic kidney disease), 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) oysterman current use of 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 Mixed dyslipidemia History of endovascular stent graft for abdominal aortic aneurysm 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) Pre-op testing documented in this encounter Results * (ABNORMAL) DIFFERENTIAL, AUTOMATED (10/23/2024 11:05 AM EST) WBC 8.15 4.00 - 10.80 K/uL 10/23/2024 11:20 AM EST LAB[facility]ORY [facility] 57-10 Neutrophils % 68.5 40.0 - 75.0 [...] al Result [facility] 57-[address] [facility] [place] [address] * (ABNORMAL) CBC (10/23/2024 11:05 AM EST) WBC 8.15 4.00 - 10.80 K/uL 10/23/2024 11:20 AM EST LABORATORY [facility] 57-10 RBC 5.31 4.50 - 5.25 M/uL 10/23/2024 11:20 AM EST LABORATORY [facility] 57-10 HGB 17.1(H) 14.0 - 16.8 g/dL 10/23/2024 11:20 AM EST LABORATORY [facility] 57-10 HCT 51.5(H) 40.0 - 48.4 % 10/23/2024 11:20 AM EST [facility] MCV 97.0 82.0 - 99.5 fL 10/23/2024 11:20 AM EST LABORATORY [facility] 57-10 MCH 32.2 27.0 - 34.0 pg 10/23/2024 11:20 AM EST [facility] MCHC 33.2 32.0 - 36.0 g/dL 10/23/2024 11:20 AM EST LABORATORY [facility] 57-10 RDW 14.4 11.5 - 15.5 % 10/23/2024 11:20 AM EST LABORATORY [facility] 57-10 PLT 206 140 - 400 K/uL 10/23/2024 11:20 AM EST LABORATORY [facility] 57-10 MPV 9.8 6.6 - 11.1 fL 10/23/2024 11:20 AM EST LABORATORY [facility] 57-10 Blood Venous blood specimen / Unknown Venipuncture / Unknown 10/23/2024 11:05 AM EST 10/23/2024 11:05 AM EST us Trey Culver PA-C LAB BLOOD ORDERABLES Fin al Result LABORATORY [facility] 57-10 [address] [place] [address] * BASIC METABOLIC PANEL (10/23/2024 11:05 AM EST) BUN 17 6 - 20 mg/dL 10/23/2024 12:14 PM EST LABORATORY [facility] 57Liane CREATININE 1.1 0.6 - 1.2 [...] ORDERABLES Fin al Result Performing Organization Address City/State/[facility] Co de Phone Number LABORATORY [facility] 57-[address] [place] [address] documented in this encounter Visit Diagnoses Diagnosis 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 Care Teams Server Programmer Relationship Specialty Start Date End Date Fran Peres MD [address] [place] [address] [place] [address] PCP - General Family Medicine 12/13/23 documented as of this encounter
--- OUTSIDE RECORDS SUMMARY | 2024-12-03 16:51 | External Medical Summary | Summary of Care ---
Author Name Unknown Organization [facility] Address [address] [facility] [place] [address] Phone [phone] Care Team Providers Care Workforce Management Consultant Name Role Phone Fran Peres MD Primary Care Provide r Reason for Visit * Reason Comments Acute Encounter Details Date Type Department Care Team (Late st Contact Info) Description 10/31/2024 8:40 AM EST Office Visit Family Medicine [address] [place] [phone] Yvonne Gonzalez PA-C [address] [place] [address] [place] [id number] Rib pain on left side*; Tinnitus of both ears Allergies No known active allergiesdocumented as of this encounter (statuses as of 10/31/2024) Medications Cyanocobalamin (VITAMIN B-12) 6000 MCG SUBL [...] Solution (Duoneb)Indicatio ns:COPD, 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 determined ([facility]) Inhale 3 mL by mouth every 6 [...] 1 4 12:47 PM EST 05/14/20 24 Active Isosorbide Mononitrate ER 30 MG Oral Tablet Extended Release 24 Hour (Imdur)Indication s:Coronary artery calcification Take 0.5 Tablets by mouth in the morning. 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 200 Tablet 1 5 10:27 AM EST 10/22/19 25 Active predniSONE 20 MG Oral Tablet (Deltasone)Indica tions:Rib pain on left side One daily 10 Tablet 10/31/19 25 Active predniSONE 20 MG Oral Tablet (Deltasone)Indica tions:Tinnitus of both ears One daily 10 Tablet 09/12/19 25 025 Discontin ued(Refil l) Hospital, Clinic, or [...] as of this encounter (statuses as of 10/31/2024) Active Problems Problem Noted Date Diagnosed Date [...] 07/16/2020 Primary 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 of both knees 08/01/2019 assisted current use of 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 0 03/04/2019 Actinic keratosis 12/12/2018 Atherosclerosis of [place] 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[place] heart without angina pectoris 04/19/2018 Abdominal aortic aneurysm without rupture 2015 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 09/14/2015 Factor V 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 12/30/2013 Overview (12/30/2013): has one copy of Factor V 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 Mixed dyslipidemia 11/25/2009 GENERAL OSTEOARTHROSIS Tobacco use disorder Exudative age-related macula r degeneration of both eyes with active choroidal neovascularization documented as of this encounter (statuses as of 10/31/2024) Resolved Problems Problem Noted Date Diagnosed Date [...] as of this encounter (statuses as of 10/31/2024) Immunizations Name Administration Dates Next Due COVID-19 [...] Sign Reading Time Taken Comments Blood Pressure 122/74 10/31/2024 8:31 AM EST Pulse 88 10/31/2024 8:31 AM EST Temperature 36.1 C (97 F) 10/31/2024 8:31 AM EST Respiratory Rate - - Oxygen Saturation - - Inhaled Oxygen Concentration - - Weight - - Height - - Body Mass Index - - documented in this encounter Progress Notes * Yvonne Gonzalez PA-C - 10/31/2024 8:55 AM EST Nursing Notes: Ivet Lin Shantell, KIMBERLYN 10/31/24 0841 Signed Hurt himself on chest/ ribs area on left side Pt here today with pain at left side of ribs. He fell about 2 weeks ago and hit ribs. Pt denies swelling, redness, bruising. Pt has pain with ROM and with coughing/deep breathing. Pt denies SOB, fever, chills. 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 09/18/2015 [facility] HTN, goal below 140/90 Iliac artery thrombosis, 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 [facility] Internal hemorrhoids 07/24/2007 Macular degeneration (senile) of retina 06/26/2014 Nonexudative age-related macular degeneration, bilateral, intermediate dry stage Other seborrheic keratosis 06/17/2002 maulik-surgical removal under local anesthesia 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 GENERAL: alert, healthy, and mild distress HEART: regular rate & rhythm, no murmur, and no gallops LUNGS: chest symmetric with normal AP diameter, no chest deformities noted, no chest wall tenderness, lungs clear to auscultation CHEST: no edema, no erythema, no ecchymosis. No pain with palpation at ribs. A:Rib pain on left side (Primary) - XR RIBS UNILATERAL W/PA CHEST MINIMUM 3 VIEWS - predniSONE 20 MG Oral Tablet (Deltasone); One daily Tinnitus of both ears Will xray ribs. Try prednisone. Continue tylenol. Any questions/problems, please call. If anything changes, worsens, develops new sx, please call [facility]IA. Follow Up: Return if symptoms worsen or fail to improve. Yvonne Gonzalez PA-C documented in this encounter Nursing Notes * RileyIvet meredith LPN - 10/31/2024 8:36 AM EST Hurt himself on chest/ ribs area on left side documented in this encounter Plan of Treatment Upcoming Encounters Date Type Department Care Team (Late st Contact Info) Description 11/21/2024 8:30 AM EDT Office Visit Orthopaedics [address] [phone] Edwin Staples MD [address] [place] [phone] 12/23/2024 11:45 AM EDT Office Visit Ophthalmology, [facility] [address] [place] [address] Mau Deleon DO [address] [place] [address] 12/25/2024 8:40 AM EDT Office Visit Family Medicine [address] [phone] Fran Peres MD [address] [place] [address] [place] [address] 01/06/2025 7:15 AM EDT Hospital Encounter [facility], OPERATING ROOM [facility] [address] [place] [address] Walt Raphael MD [address] [place] [address] 01/06/2025 7:15 AM EDT - 01/06/2025 10:25 AM EDT Surgery OR [facility], OPERATING ROOM [facility] [address] [facility] [place] [phone] Walt Raphael MD [address] [facility] [place] [address] ENDOVASCULAR REPAIR [facility] RADIOLOGY SUPERVISION & INTERPRETATION ONE ENDOPROSTHESIS 01/22/2025 9:15 AM EDT Imaging Radiology [address] [place] [phone] 01/29/2025 10:30 AM EDT Office Visit Vascular Surgery, [facility] [address] [place] [address] Walt Raphael MD [address] [facility] [place] [address] 08/12/2025 9:30 AM EST Office Visit Cardiology [address] [place] [address] Jesus Alberto Montiel PAZeeC [address] [place] [address] Pending Results Name Type Priority Associated Diagnoses Date /Time XR RIBS UNILATERAL W/PA CHEST MINIMUM 3 VIEWS Medical Imaging Routine Rib pain on left side 10/31/2024 9:25 AM EST Scheduled Procedures Name Priority Associated Diagnoses Date/Ti wa ENDOVASCULAR REPAIR [facility] [employer] 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) Pre-op testing 01/06/2025 7:15 AM EDT OPEN BRACHIAL ARTERY EXPOSURE FOR ENDOVASCULAR PROSTHESIS 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) Aortic root dilatation (HCC) CKD (chronic kidney disease), 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 Mixed dyslipidemia History of endovascular stent graft for abdominal aortic aneurysm 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) Pre-op testing 01/06/2025 7:15 AM EDT Health Maintenance Due Date Last Done Comments DISCUSS TOBACCO CESSATION (REFER TO SMARTSET #[id number]) 1935 Alpha-1 Antitrypsin 11/23/1955 Depression Screening 04/23/2021 [...] this encounter Medical Devices Implanted Type Area Laborer Filter Plant Device Identifier Shelf Expiration Date Model / Serial / Lot Graft Aaa Bif [id number] - [id number] - [id number] Implanted:Qty: 1 on 02/13/2015 by Clayton Lee MD at [place] [facility] Aorta [employer] : VASCULAR 12/02/2016 [id number] / [id number] / Limb Contralat [id number] - [id number] - [id number] Implanted:Qty: 1 on 02/13/2015 by Clayton Lee MD at OR [facility] Aorta [employer] : VASCULAR 11/19/2016 [id number] / [id number] / Limb Contralat [id number] - [id number] - [id number] Implanted:Qty: 1 on 02/13/2015 by Clayton Lee MD at OR [facility] Aorta [employer] : VASCULAR [id number] / [id number] / Plug Vasc Ampl 16mm [id number] - [id number] Implanted:Qty: 1 on 02/13/2015 by Clayton Lee MD at OR [facility] [employer]orta [employer] TREVON [id number] / / documented as [...] V 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 (HCC) 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 Mixed dyslipidemia Mixed hyperlipidemia History of endovascular stent graft for abdominal aortic aneurysm Blood vessel replaced by other means Pre-op testing Preoperative examination, unspecified Rib pain on left side- Primary Chest pain, unspecified Tinnitus of both ears Unspecified tinnitus 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) Aortic root dilatation (HCC) 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), stage II Chronic kidney disease, Stage II (mild) 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) Primary hypercoagulable state assisted current use of 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 Mixed dyslipidemia [...] and were consensually agreed upon. Care Teams Workforce Management Consultant Relationship Specialty Start Date End Date Fran Peres MD [address] [place] [address] [place] [id number] PCP - General Family Medicine 12/13/23 documented as of this encounter
--- OUTSIDE RECORDS SUMMARY | 2024-12-03 16:52 | External Medical Summary | Summary of Care ---
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) Procedures INJECTION OF EYE DRUG AFLIBERCEPT IO SOLN, PER 1MG, INJ Mau Deleon DO Phone: tel: fax: Referral ID Status Reason Start Date Expiration Date V isits Requested Visits Authorized [id number] Authorized Precert 03/05/2020 09/10/2099 99 99 Encounter Details Date Type Department Care Team (Late st Contact Info) Description 10/21/2024 10:30 AM EST Office Visit Ophthalmology, [facility] [address] [place] [address] Mau Deleon DO [address] [place] [address] 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 372 mL 5 1 Active Docusate Sodium 100 MG Oral Capsule (Colace)Indicatio ns:Constipation, unspecified constipation type Take 1 Cap by mouth daily. 60 Cap 2 1 Active Additional Information Patient taking differently:100 mg OralPRN, Reported on 10/08/2024 Calcium 200 MG Oral Tablet Take 200 mg by mouth in the morning. Active Apixaban 5 MG Oral Tablet (Eliquis)Indicati ons:Factor V 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 ([facility]),Homozygous MTHFR mutation [id number],Hx pulmonary embolism Take 1 Tablet by mouth in the morning and 1 Tablet before bedtime. 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 90 Tablet 1 07/30/2024 5:54 PM EST 4 Active Loratadine 10 MG Oral Tablet (Claritin)Indicat ions:Tinnitus of both ears Take 1 Tablet by mouth in the morning. 30 Tablet 5 Active busPIRone HCl 10 MG Oral Tablet (Buspar)Indicatio ns:PURVI (generalized anxiety disorder) Take 1 Tablet by mouth in the morning and 1 Tablet before bedtime. 180 Tablet 2 10/08/2024 1:58 PM EST 5 Active Hospital, Clinic, or Other [...] as of this encounter (statuses as of 10/21/2024) Active Problems Problem Noted Date Diagnosed Date Other emphysema 12/13/2023 BMI 26.0-26.9,adult 11/08/2022 Emphysema of lung 07/07/2021 Aortic root dilatation 07/07/2021 Ascending aortic aneurysm 07/07/2021 Nonrheumatic mitral valve regurgitation 07/07/20 CKD (chronic kidney disease), stage II Overview (04/29/2021): EGFR 66.5 Hx pulmonary embolism 07/16/2020 Primary 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 of both knees 08/01/2019 [place] terminal agent current use of 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 0 03/04/2019 Actinic keratosis 12/12/2018 Atherosclerosis of [place] 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[place] heart without angina pectoris 04/19/2018 Abdominal aortic aneurysm without rupture 2015 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 09/14/2015 Factor V 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 12/30/2013 Overview (12/30/2013): has one copy of Factor V 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 Mixed dyslipidemia 11/25/2009 GENERAL OSTEOARTHROSIS Tobacco use disorder Exudative age-related macula r degeneration of both eyes with active choroidal neovascularization documented as of this encounter (statuses as of 10/21/2024) Resolved Problems Problem Noted Date Diagnosed Date [...] pulmonary artery 12/23/2013 04/19/2018 Overview (12/25/2013): Admitted [place] Encounter for examination fo r normal comparison [...] as of this encounter (statuses as of 10/21/2024) Immunizations Name Administration Dates Next Due COVID-19 [...] to quit: 04/27/2021 Cigars Smokeless Tobacco: Never Comments:08/31/22 4-5 little cigars, declined pamphlet Alcohol Use [...] on file documented as of this encounter Progress Notes * Mau Deleon DO - 10/21/2024 10:30 AM EST [facility] [place] Nursing Notes: Merissa Seymour TECH 10/21/24 1040 Signed Jeff Powers is a 88 year old year old male who presents for Exud. AMD. Last Office Visit: 09/05/2024 (in office), Visit date not found (telemedicine) Patient currently states no change in vision. Are you diabetic? No Do you drive? Yes, only in the daytime and not far distance OCT image(s) of both eyes acquired and filed/scanned into chart. Base Eye Exam Visual Acuity (Snellen - Linear) Right Left Dist sc 20/80 20/350 -2 Dist cc 20/60 -1 20/300 -2 Dist ph cc 20/50 NI VA with and without glasses Tonometry (Tonopen, 10:37 AM) Right Left Pressure 14 22 Pupils Shape React APD Right Round Minimal None Left Round Minimal None Visual Ponce (Counting fingers) Right Left Full Full Extraocular Movement Right Left Full, Ortho Full, Ortho Neuro/Psych Mood/Affect: Normal Dilation Both eyes: 0.5% Proparacaine @ 10:36 AM Dilation #2 Both eyes: 1.0% Mydriacyl, 2.5% Phenylephrine @ 10:37 AM Dilation Comments Patient cautioned that effects of dilation may last 2-7 hours dependant upon individual reaction. It was discussed that driving while dilated is not recommended. EXTERNAL: The ocular adnexae are unremarkable. SLE: Lids/Lashes: wnl OU Conjunctiva/Sclera: quiet OU Cornea: clear OU Anterior Chamber: deep and quiet OU Iris: normal OU; no NVI OU Lens: PCIOL OU; central plaque on the IOL OD Dilated fundus exam OD: vitreous: PVD optic nerve: 0.4, no edema/pallor/NVD macula: drusen, GA vessels: wnl periphery: wnl, no RT/RD Dilated fundus exam OS: vitreous: PVD optic nerve: 0.4, no edema/pallor/NVD macula: drusen, GA vessels: wnl periphery: wnl, no RT/RD OCT Interpretation: OD: drusen, no fluid, +pvd - STABLE OS: drusen, resolved irf/srf, +pvd - STABLE A/P: 1. Exudative Age-Related Macular Degeneration OU OD>OS - s/p Eylea OD 09/05/24, 05/14/24, (03/19/24, 12/21/23, 10/19/23, 08/17/23, 06/15/23, 04/11/23, 02/09/23, 12/12/22, 09/29/22, 07/28/22, 04/28/22, 01/20/22, 10/28/21, 04/22/21, 01/21/21, 10-15-20, 15-20, 03-05-20, 11-13-20,07-25-19, 04-18-19, 01-17-19, 18, 18, 03-27-2018, 18, 18, 08-25-17, 07-05-17) - 7 weeks since last injection - s/p Eylea OS (09/05/24, 05/14/24, 03/19/24, 12/21/23, 10/19/23, 08/17/23, 06/15/23, 04/11/23, 02/09/23, 12/12/22, 09/29/22, 07/28/22, 04/28/22, 01/20/22, 10/28/21, 04/22/21, 01/21/21, 2--21, 1015-20, 25-20, -5-20,14-19, 8--19, 5--19, --18, 05-08-18,12-27-18, 10-19-18, 08-25-17, 17) - 7 weeks since last injection - worse at 11 weeks, prior worse at 19 weeks in past - on coumadin - recommend AREDS2 MVI as directed and Amsler grid qday 2. Pseudophakia OU -stable 3. S/p TAB for suspected GCA--was negative -submitted DL-13 09/05/24; report of eye exam 10/21/2024 F/u 8-10 weeks - Dilate and OCT OU Mau Deleon DO PCP: Roni Kenyon MD TIMEOUT PROCEDURE: correct patient identity-YES correct procedure and consent-YES verified side and site-YES correct patient position-YES all necessary equipment/prior studies present-YES reviewed special requirements of this patient-YES PROCEDURE: Intravitreal injection of Eylea (aflibercept) 2mg OD INFORMED CONSENT: Risks, benefits and alternatives have been discussed with the patient. Risks include, but are not limited to: retinal tears, detachments, hemorrhage, glaucoma, infection, cataracts, need for more procedures and the potential risk of arterial thromboembolic events following use of intravitreal VEGF inhibitors defined as nonfatal stroke, nonfatal myocardial infarction or vascular . Patient is aware of these risks and consents to the procedure. DESCRIPTION OF PROCEDURE: The procedure site was confirmed. Topical proparacaine was applied to the surface of the eye after which subconjunctival anesthetic was administered. The area was prepped in the standard aseptic manner with 5% Betadine solution. An eyelid speculum was placed and 2mg (0.05 ml) of Eylea was injected 3.75 mm posterior to the limbus into the midvitreous cavity with a 30 gauge short needle. The eye speculum was removed, Betadine was flushed from the eye and optic nerve perfusion was insured. The patient tolerated the procedure without difficulty and was given followup instructions and instructed to use ophthalmic ointment 3x/day as needed. Mau Deleon DO, performed the procedure in its entirety. TIMEOUT PROCEDURE: correct patient identity-YES correct procedure and consent-YES verified side and site-YES correct patient position-YES all necessary equipment/prior studies present-YES reviewed special requirements of this patient-YES PROCEDURE: Intravitreal injection of Eylea (aflibercept) 2mg OS INFORMED CONSENT: Risks, benefits and alternatives have been discussed with the patient. Risks include, but are not limited to: retinal tears, detachments, hemorrhage, glaucoma, infection, cataracts, need for more procedures and the potential risk of arterial thromboembolic events following use of intravitreal VEGF inhibitors defined as nonfatal stroke, nonfatal myocardial infarction or vascular . Patient is aware of these risks and consents to the procedure. DESCRIPTION OF PROCEDURE: The procedure site was confirmed. Topical proparacaine was applied to the surface of the eye after which subconjunctival anesthetic was administered. The area was prepped in the standard aseptic manner with 5% Betadine solution. An eyelid speculum was placed and 2mg (0.05 ml) of Eylea was injected 3.75 mm posterior to the limbus into the midvitreous cavity with a 30 gauge short needle. The eye speculum was removed, Betadine was flushed from the eye and optic nerve perfusion was insured. The patient tolerated the procedure without difficulty and was given followup instructions and instructed to use ophthalmic ointment 3x/day as needed. Mau Deleon DO, performed the procedure in its entirety. documented in this encounter Nursing Notes * Merissa Seymour TECH - 10/21/2024 10:58 AM EST Jeff Powers to receive 36 Eylea 2mg Injection of the Right eye. Correct eye confirmed with patient and marked by Mau Deleon DO Eylea 2mg lot # [id number] Exp. Date: Jeff Powers to receive 35 Eylea 2mg Injection of the Left eye. Correct eye confirmed with patient and marked by Mau Deleon DO Eylea 2mg lot # [id number] Exp. Date: 12/2025 * Merissa Seymour TECH - 10/21/2024 10:25 AM EST Jeff Powers is a 88 year old year old male who presents for Exud. AMD. Last Office Visit: 09/05/2024 (in office), Visit date not found (telemedicine) Patient currently states no change in vision. Are you diabetic? No Do you drive? Yes, only in the daytime and not far distance OCT image(s) of both eyes acquired and filed/scanned into chart. documented in this encounter Plan of Treatment Upcoming Encounters Date Type Department Care Team (Late st Contact Info) Description 10/23/2024 10:10 AM EST Office Visit Vascular Surgery, [facility] [address] [place] [address] Walt Raphael MD [address] [place] [address] 11/21/2024 8:30 AM EDT Office Visit Orthopaedics [address] [phone] Edwin Staples MD [address] [place] [phone] 12/23/2024 11:45 AM EDT Office Visit Ophthalmology, [facility] [address] [place] [address] Mau Deleon DO [address] [place] [address] 12/25/2024 8:40 AM EDT Office Visit Family Medicine [address] [phone] Fran Peres MD [address] [place] [address] [place] [address] 08/12/2025 9:30 AM EST Office Visit Cardiology [address] [place] [address] Jesus Alberto Montiel PA-C [address] [place] [phone] Scheduled Orders Name Type Priority Associated Diagnoses Orde r Schedule RETINA SCAN DIAGNOSTIC IMAGE, POSTERIOR Procedures Routine 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) Ordered: 10/21/2024 Health Maintenance Due Date Last Done Comments DISCUSS TOBACCO CESSATION (REFER TO SMARTSET #2559) 1935 Alpha-1 Antitrypsin 11/23/1953 Depression Screening 04/23/2021 [...] this encounter Medical Devices Implanted Type Area Adult Health Clinical Nurse Specialist Device Identifier Shelf Expiration Date Model / Serial / Lot Graft Aaa Bif [id number] - [id number] - [id number] Implanted:Qty: 1 on 02/13/2015 by Clayton Lee MD at OR [facility] [facility] Aorta [employer] : VASCULAR 12/02/2016 [id number] / [id number] / Limb Contralat [id number] - [id number] - [id number] Implanted:Qty: 1 on 02/13/2015 by Clayton Lee MD at OR [facility] [place] Aorta [employer] : VASCULAR 11/19/2016 [id number] / [id number] / Limb Contralat [id number] - [id number] - [id number] Implanted:Qty: 1 on 02/13/2015 by Clayton Lee MD at OR [facility] [place] Aorta [employer] : VASCULAR [id number] / [id number] / Plug Vasc Ampl 16mm 9-Plug-016 - [id number] Implanted:Qty: 1 on 02/13/2015 by Clayton Lee MD at OR [facility] [place] Aorta [employer] 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) Given 10/21/2024 11:02 AM EST 2 mg Eye Left Given 10/21/2024 11:01 AM EST 2 mg E ye Right Given 09/05/2024 10:24 AM EST 2 mg E ye Left ROPivacaine (Naropin) inj 1.5 mg 1.5 mg, Injection, PRN Other, Starting on Mon07/09/24 at 0914, Until Mon07/09/25 at 0913, For 365 daysIndications: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 Care Teams Video Technician Relationship Specialty Start Date End Date Fran Peres MD [address] [place] [address] [place] [address] PCP - General Family Medicine 12/13/23 documented as of this encounter
--- OUTSIDE RECORDS SUMMARY | 2024-12-03 16:52 | External Medical Summary | Summary of Care ---
Author Name Unknown Organization [facility] Address [address] [facility] [place] [address] Phone [phone] Care Team Providers Care Institutional Custodian Name Role Phone Fran Peres MD Primary Care Provide r Reason for Visit * Reason Comments Outpatient Testing Encounter Details Date Type Department Care Team (Late st Contact Info) Description 10/23/2024 11:10 AM EST Laboratory Laboratory, [facility] [address] [facility] [phone] [facility] [address] [place] [address] 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); Aortic root dilatation (HCC); CKD (chronic kidney disease), stage II; 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); 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 current use of 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; Mixed dyslipidemia; History of endovascular stent graft for abdominal aortic aneurysm; 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) Allergies No known active allergiesdocumented as of [...] Solution (Duoneb)Indicatio ns:COPD, 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 determined ([facility]) Inhale 3 mL by mouth [...] Release 24 Hour (toPROL XL)Indications: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 TAKE 1 TABLET [...] ons: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),Homozygous MTHFR mutation [id number],Hx pulmonary embolism Take 1 Tablet by mouth [...] 07/16/2020 Primary 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 of both knees 08/01/2019 [facility] current use of 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 0 03/04/2019 Actinic keratosis 12/12/2018 Atherosclerosis of [place] 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[place] heart without angina pectoris 04/19/2018 Abdominal aortic aneurysm without rupture 2015 Homozygous MTHFR mutation [id number] 09/14/2015 Factor V 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 12/30/2013 Overview [...] on file documented as of this encounter Plan of Treatment Upcoming Encounters Date Type Department Care Team (Late st Contact Info) Description 11/21/2024 8:30 AM EDT Office Visit Orthopaedics [address] [place] [phone] Edwin Staples MD [address] [facility] [place] [phone] 12/23/2024 11:45 AM EDT Office Visit Ophthalmology, [facility] [address] [place] [address] Mau Deleon DO [address] [place] [address] 12/25/2024 8:40 AM EDT Office Visit Family Medicine [address] [place] [phone] Fran Peres MD [address] [place] [address] [place] [address] 01/06/2025 Hospital Encounter [facility]PER[facility] RO[facility] [address] [place] [phone] Walt Raphael MD [address] [place] [address] 01/22/2025 9:15 AM EDT Imaging Radiology [facility] [address] [place] [phone] 01/29/2025 10:30 AM EDT Office Visit Vascular Surgery, [facility] [address] [place] [address] Walt Raphael MD [address] [place] [address] 08/12/2025 9:30 AM EST Office Visit Cardiology [address] [place] [address] Jesus Alberto Montiel PA-C [address] [place] [address] Scheduled Procedures Name Priority Associated Diagnoses Date/Ti [...] Comments DISCUSS TOBACCO CESSATION (REFER TO SMARTSET #1145) 1935 Alpha-1 Antitrypsin 11/23/1955 Depression Screening 04/23/2021 [...] this encounter Medical Devices Implanted Type Area Director Of Women'S Services Device Identifier Shelf Expiration Date Model / Serial / Lot Graft Aaa Bif [id number] - [id number] - [id number] Implanted:Qty: 1 on 02/13/2015 by Clayton Lee MD at OR [facility] Aorta [employer] : VASCULAR 12/02/2016 [id number] / [id number] / Limb Contralat [id number] - [id number] - [id number] Implanted:Qty: 1 on 02/13/2015 by lCayton Lee MD at OR [facility] Aorta [employer] : VASCULAR 11/19/2016 [id number] / [id number] / Limb Contralat [id number] - [id number] - [id number] Implanted:Qty: 1 on 02/13/2015 by Clayotn Lee MD at OR [facility] Aorta [employer] : VASCULAR [id number] / [id number] / Plug Vasc Ampl 16mm 9-Plug-016 - [id number] Implanted:Qty: 1 on 02/13/2015 by Clayton Lee MD at OR [facility] Aorta [employer] TREVON 9-PLUG-0 16 / / documented as of this encounter Visit Diagnoses Diagnosis 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) Aortic root dilatation (HCC) 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), stage II Chronic kidney disease, Stage II (mild) 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) Primary hypercoagulable state 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 current use of 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 Mixed dyslipidemia Mixed hyperlipidemia History of endovascular stent graft for abdominal aortic aneurysm Blood vessel replaced by other means 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 Care Teams Institutional Custodian Relationship Specialty Start Date End Date Fran Peres MD [address] [place] [address] [place] [address] PCP - General Family Medicine 12/13/23 documented as of this encounter
--- OUTSIDE RECORDS SUMMARY | 2024-12-03 16:52 | External Medical Summary | Summary of Care ---
Author Name Unknown Organization [facility] Address [address] [place] [address] Phone [phone] Care Team Providers Care Media Relations Intern Name Role Phone Fran Peres MD Primary Care Provide r Reason for Visit * Reason Onset Date Comments Appointment 10/10/2024 Encounter Details Date Type Department Care Team (Late st Contact Info) Description 10/10/2024 Telephone Vascular Surg [facility] [address], [place] [phone] Rohit Diamond CRNP [address], [place] [phone] Appointment Allergies No known active allergiesdocumented as of this encounter (statuses as of 10/10/2024) Medications Cyanocobalamin (VITAMIN B-12) 6000 MCG SUBL [...] ons: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),Homozygous MTHFR mutation [id number],Hx pulmonary embolism Take 1 Tablet by mouth [...] Release 24 Hour (toPROL XL)Indications:At herosclerosis of [place] coronary artery of [place] heart without angina pectoris TAKE 1 TABLET [...] as of this encounter (statuses as of 10/10/2024) Active Problems Problem Noted Date Diagnosed Date Other emphysema 12/13/2023 BMI 26.0-26.9,adult 11/08/2022 Emphysema of lung 07/07/2021 Aortic root dilatation 07/07/2021 Ascending aortic aneurysm 07/07/2021 Nonrheumatic mitral valve regurgitation 07/07/20 CKD (chronic kidney disease), stage II 1 Overview (04/29/2021): EGFR 66.5 Hx pulmonary embolism 07/16/2020 Primary 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 of both knees 08/01/2019 [facility] current use of 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 0 03/04/2019 Actinic keratosis 12/12/2018 Atherosclerosis of [place] 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[place] heart without angina pectoris 04/19/2018 Abdominal aortic aneurysm without rupture 2015 Homozygous MTHFR mutation [id number] 09/14/2015 Factor V 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 12/30/2013 Overview (12/30/2013): has one copy of Factor V 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 Mixed dyslipidemia 11/25/2009 GENERAL OSTEOARTHROSIS Tobacco use disorder Exudative age-related macula r degeneration of both eyes with active choroidal neovascularization documented as of this encounter (statuses as of 10/10/2024) Resolved Problems Problem Noted Date Diagnosed Date [...] as of this encounter (statuses as of 10/10/2024) Immunizations Name Administration Dates Next Due COVID-19 [...] encounter Miscellaneous Notes * Telephone Encounter - Kartki Cutler OSA - 10/10/2024 11:00 AM EST Scheduled 10/23 Donavon PRESTON Palacios * Telephone Encounter - Renita Frausto LPN - 10/10/2024 9:47 AM EST Attempted to contact patient to offer an appt in [facility]. Left message to return phone call Renita Frausto LPN 10/10/2024 9:47 AM * Telephone Encounter - Rohit Diamond CRNP - 10/10/2024 9:02 AM EST CTA Abd/Pel - Postsurgical changes from prior infrarenal abdominal aorto bi-iliac EVAR with persistent 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 Telephone call to Mr. Powers and his reviewing CTA results and plan to arrange return clinic visit at [facility] for further evaluation and discussion of treatment options. Understanding and agreement voiced. Renita, Can you please reach out o Mr. Powers and is to arrange for return clinic visit at [facility] as noted above. Thanks Rohit documented in this encounter Plan of Treatment Upcoming Encounters Date Type Department Care Team (Late st Contact Info) Description 10/21/2024 10:30 AM EST Office Visit Ophthalmology, [facility] [address] [place] [address] Mau Deleon DO [address] [place] [address] 10/23/2024 10:10 AM EST Office Visit Vascular Surgery, [facility] [address] [place] [address] Walt Raphael MD [address] [place] [address] 11/21/2024 8:30 AM EDT Office Visit Orthopaedics [address] [phone] Edwin Staples MD [address] [place] [phone] 12/25/2024 8:40 AM EDT Office Visit Family Medicine [address] [place] [address] Fran Peres MD [address] [place] [address] [place] [address] 08/12/2025 9:30 AM EST Office Visit Cardiology [facility] [place] [address] Jesus Alberto Montiel PA-C [address] [place] [address] Health Maintenance Due Date Last Done Comments DISCUSS TOBACCO CESSATION (REFER TO SMARTSET #[id number]) 1935 Alpha-1 Antitrypsin 11/23/1955 Depression Screening 04/23/2021 [...] this encounter Medical Devices Implanted Type Area Girls Swimming Coach Device Identifier Shelf Expiration Date Model / Serial / Lot Graft Aaa Bif [id number] - [id number] - [id number] Implanted:Qty: 1 on 02/13/2015 by Clayton Lee MD at OR [facility] Aorta [employer] : VASCULAR 12/02/2016 [id number] / [id number] / Limb Contralat [id number] - [id number] - [id number] Implanted:Qty: 1 on 02/13/2015 by Clayton Lee MD at OR [facility] Aorta [employer] : VASCULAR 11/19/2016 [id number] / [id number] / Limb Contralat [id number] - [id number] - [id number] Implanted:Qty: 1 on 02/13/2015 by Clayton Lee MD at OR [facility] Aorta [employer] : VASCULAR [id number] / [id number] / Plug Vasc Ampl 16mm 9-Plug-016 - [id number] Implanted:Qty: 1 on 02/13/2015 by Clayton Lee MD at OR [facility] Aorta Appointuit 9-PLUG-0 16 / / documented as of [...] and were consensually agreed upon. Care Teams Media Relations Intern Relationship Specialty Start Date End Date Fran Peres MD [address] [place] [address] [place] [address] PCP - General Family Medicine 12/13/23 documented as of this encounter
--- OUTSIDE RECORDS SUMMARY | 2024-12-03 16:52 | External Medical Summary | Summary of Care ---
Author Name Unknown Organization [facility] Address [address] [place] [address] Phone [phone] Care Team Providers Care Survey Workers Supervisor Name Role Phone Fran Peres MD Primary Care Provide r Reason for Referral * Precert (Within 10 days (routine)) - Authorized Specialty Diagnoses / Procedures Referred By Jody t Referred To Contact Radiology Diagnoses 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) Aortic root dilatation (HCC) CKD (chronic kidney disease), 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) snf current use of 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 Mixed dyslipidemia History of endovascular stent graft for abdominal aortic aneurysm 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) Procedures CTA ABD/PELVIS Trey Culver PA-C [address] [place] [address] Phone: tel: fax: Referral ID Status Reason Start Date Expiration Date V isits Requested Visits Authorized [id number] Authorized 10/23/2024 999 999 Reason for Visit * Reason Comments Follow Up Encounter Details Date Type Department Care Team (Latest Contact Info) Description 10/23/2024 10:10 AM EST Office Visit Vascular Surgery, [facility] [address] [facility] [place] [address] Walt Raphael MD [address] [place] [address] 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)*; 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); Aortic root dilatation (HCC); CKD (chronic kidney disease), stage II; 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); snf current use of 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; Mixed dyslipidemia; [...] ns:COPD, 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 determined ([facility]) Inhale 3 mL by mouth every [...] Release 24 Hour (toPROL XL)Indications:At herosclerosis of [place] coronary artery of [place] heart without angina pectoris TAKE 1 TABLET [...] ons: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),Homozygous MTHFR mutation T5000W,Hx pulmonary embolism Take 1 Tablet by mouth [...] 07/16/2020 Primary 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 of both knees 08/01/2019 snf current use of 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 0 03/04/2019 Actinic keratosis 12/12/2018 Atherosclerosis of [place] 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 [facility] Internal hemorrhoids 07/24/2007 Macular degeneration (senile) of retina 06/26/2014 Nonexudative age-related macular degeneration, bilateral, intermediate dry stage Other seborrheic keratosis 06/17/2002 [place]-surgical removal under local anesthesia Saddle embolus of pulmonary artery (HCC) 12/23/2013 Admitted [place] Tobacco use disorder Vitamin D deficiency 11/25/2009 [...] 60% ENDOVASC ABDO REPR W/BI DEVICE 02/13/2015 [facility] ENDOVASC ABDO REPR W/BI DEVICE N/A 02/13/2015 Repair of aorta and iliac aneurysms with Medtronic Endurant device (Main body: 35-86-250, Right iliac limb extension: 82-50-21, Left iliac limb 71-84-362) by Dr. Lee. FEM/POP ARTERY REVASC W/ STENT+ANGIOPLASTY Left 09/22/2015 FEM/POP ARTERY REVASC W/ STENT+ANGIOPLASTY performed by Clayton Lee MD at OR [facility] INJECTION OF EYE DRUG Right 07/05/2017 # [...] performed by Clayton Lee MD at OR [facility] IR EMBOLIZATION ARTERIAL NON HEMMORHAGE Right 02/13/2015 right iliac IR EMBOLIZATION ARTERIAL NON HEMMORHAGE Right 02/13/2015 Embolization of right internal iliac artery with 16 mm Amplatzer Vascular Plug by Dr. Lee. IR FILTER REMOVAL VENA CAVA 01/27/2014 IR PLACEMENT IVC FILTER 12/23/2013 [facility] LIGATION/BIOPSY OF TEMPORAL ARTERY Bilateral 09/28/2018 no vasculitis seen MISCELLANEOUS ORDER ([facility] ONLY) Bilateral 07/05/17-07/05/18 [facility] OU CONSENT SIGNED, Dr. Adrienne MICHELLE ORDER ([facility] ONLY) Bilateral 07/17/2018-07/17/2019 [facility] CONSENT OU SIGNED; DR ADRIENNE MICHELLE ORDER ([facility] ONLY) Bilateral 07/25/2019-07/25/2020 EYLE[facility] CONSENT OU SIGNED; DR ADRIENNE MICHELLE ORDER ([facility] ONLY) ACT 112 signed, 11/14/2019 OTHER [...] performed by Clayton Lee MD at OR [facility] US AAA SCREEN, VASCULAR LAB N/A 10/05/2016 [...] sclerae normal. NEUROLOGIC: motor function grossly intact. [facility] PULSE SCALE: Carotid Right:----Bruit: No Left:----Bruit: [...] liver measuring 3.5cm. 08/17/21; Location of Study: [facility]; Modality: duplex; AAA measures 3.5 cm in [...] on 2023 TTe Patient is followed by [facility] Cardiology HTN. Dyslipidemia. Reformed smoker 04/2021. [...] extremity/left groin access We discussed risks (, NM, CVA, bleeding, clotting, embolizing, colonic ischemia, buttock [...] answered, and informed consent was obtained. The [facility] Abdominal Aortic Aneurysm Stent Graft Booklet was given to the patient. Walt Raphael MD Section of Vascular and Endovascular Surgery [facility] [place] [address] [phone] documented in this encounter Nursing Notes * Chelsea Jefferson, ETCHER [employer]ENTICE [employer]ENG[employer]VING - 10/23/2024 9:56 AM EST Patient stated no change in medications. Reviewed the option of transferring scripts to [facility] pharmacy with patient and / or family. [...] 8:30 AM EDT Office Visit Orthopaedics [address] [phone] Edwin Staples MD [address] [place] [phone] 12/23/2024 11:45 AM EDT Office Visit Ophthalmology, [facility] [address] [place] [address] Mau Deleon DO [address] [place] [address] 12/25/2024 8:40 AM EDT Office Visit Family Medicine [address] [phone] Fran Peres MD [address] [place] [address] [place] [address] 01/06/2025 Hospital Encounter OR [facility], OPERATING ROOM [facility], [facility]IE [facility] [address] [place] [phone] Walt Raphael MD [address] [place] [address] 01/22/2025 9:15 AM EDT Imaging Radiology [facility] [address] [place] [phone] 01/29/2025 10:30 AM EDT Office Visit Vascular Surgery, [facility] [address] [place] [address] Walt Raphael MD [address] [place] [facility] [place] [address] 08/12/2025 9:30 AM EST Office Visit Cardiology [address] [place] [address] Jesus Alberto Montiel PA-C [address] [place] [address] Scheduled Orders Name Type Priority Associated Diagnoses Orde r Schedule CTA ABD/PELVIS Medical Imaging Routine 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) Aortic root dilatation (HCC) CKD (chronic kidney disease), 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) upper stitcher current use of 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 Mixed dyslipidemia [...] 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) snf current use of 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 Mixed dyslipidemia History of endovascular stent graft for abdominal aortic aneurysm 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) Pre-op testing OPEN BRACHIAL ARTERY EXPOSUR E FOR ENDOVASCULAR PROSTHESIS 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) Aortic root dilatation (HCC) CKD (chronic kidney disease), 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) upper stitcher current use of 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 Mixed dyslipidemia [...] this encounter Medical Devices Implanted Type Area Landfill Attendant Device Identifier Shelf Expiration Date Model / Serial / Lot Graft Aaa Bif [id number] - [id number] - [id number] Implanted:Qty: 1 on 02/13/2015 by Clayton Lee MD at OR [facility] Aorta [employer] : VASCULAR 12/02/2016 [id number] / [id number] / Limb Contralat [id number] - [id number] - [id number] Implanted:Qty: 1 on 02/13/2015 by Clayton Lee MD at OR [facility] Aorta [employer] : VASCULAR 11/19/2016 [id number] / [id number] / Limb Contralat [id number] - [id number] - [id number] Implanted:Qty: 1 on 02/13/2015 by Clayton Lee MD at OR [facility] Aorta [employer] : VASCULAR [id number] / [id number] / Plug Vasc Ampl 16mm 9-Plug-016 - [id number] Implanted:Qty: 1 on 02/13/2015 by Clayton Lee MD at OR [facility] Aorta [employer] 9-PLUG-0 16 / / documented as of this encounter Procedures Procedure Name Priority Date/Time Associated Diagnosis Comments DIFFERENTIAL, AUTOMATED Routine 10/23/2024 11:05 AM EST 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) Aortic root dilatation (HCC) CKD (chronic kidney disease), 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) snf current use of 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 Mixed dyslipidemia History of endovascular stent graft for abdominal aortic aneurysm 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) Pre-op testing BASIC METABOLIC PANEL Routine 10/23/2024 11:05 AM EST 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) Aortic root dilatation (HCC) CKD (chronic kidney disease), 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) snf current use of 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 Mixed dyslipidemia History of endovascular stent graft for abdominal aortic aneurysm 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) CBC Routine 10/23/2024 11:05 AM EST 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) Aortic root dilatation (HCC) CKD (chronic kidney disease), 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) upper stitcher current use of 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 Mixed dyslipidemia History of endovascular stent graft for abdominal aortic aneurysm 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) Pre-op testing CBC Routine 10/23/2024 11:05 AM EST 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) Aortic root dilatation (HCC) CKD (chronic kidney disease), 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) upper stitcher current use of 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 Mixed dyslipidemia [...] % 10/23/2024 11:20 AM EST [facility] Basophils % 0.2 0.0 - 2.0 [...] al Result [facility] [place] [address] * (ABNORMAL) CBC (10/23/2024 11:05 AM EST) WBC 8.15 4.00 - 10.80 K/uL 10/23/2024 11:20 AM EST LAB[facility]ATORY [facility] 57-10 RBC 5.31 4.50 - 5.25 M/uL 10/23/2024 11:20 AM EST LAB[facility]ATORY [facility] 57-10 HGB 17.1(H) 14.0 - 16.8 g/dL 10/23/2024 11:20 AM EST LAB[facility]ATORY [facility] 57-10 HCT 51.5(H) 40.0 - 48.4 % 10/23/2024 11:20 AM EST [facility] MCV 97.0 82.0 - 99.5 fL 10/23/2024 11:20 AM EST LAB[facility]ATORY [facility] 57-10 MCH 32.2 27.0 - 34.0 pg 10/23/2024 11:20 AM EST [facility] MCHC 33.2 32.0 - 36.0 g/dL 10/23/2024 11:20 AM EST LAB[facility]ORY [facility] 57-10 RDW 14.4 11.5 - 15.5 % 10/23/2024 11:20 AM EST LAB[facility]ORY [facility] 57-10 PLT 206 140 - 400 K/uL 10/23/2024 11:20 AM EST LAB[facility]ATORY [facility] 57-10 MPV 9.8 6.6 - 11.1 fL 10/23/2024 11:20 AM EST LAB[facility]ORY [facility] 57-10 Blood Venous blood specimen / Unknown Venipuncture / Unknown 10/23/2024 11:05 AM EST 10/23/2024 11:05 AM EST us Trey Culver PA-C LAB BLOOD ORDERABLES Fin al Result LAB[facility]ATORY [facility] 57-10 [address] [place] [address] * BASIC METABOLIC PANEL (10/23/2024 11:05 AM EST) BUN 17 6 - 20 mg/dL 10/23/2024 12:14 PM EST LABORATORY [facility] 57Liane CREATININE 1.1 0.6 - 1.2 [...] ORDERABLES Fin al Result Performing Organization Address City/State/[facility] Co de Phone Number LAB[facility]ATORY [facility] [place] [address] documented in this encounter Visit Diagnoses Diagnosis 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 Care Teams Survey Workers Supervisor Relationship Specialty Start Date End Date Fran Peres MD [address] [place] [address] [place] [address] PCP - General Family Medicine 12/13/23 documented as of this encounter
--- OUTSIDE RECORDS SUMMARY | 2024-12-03 16:52 | External Medical Summary ---
Author Name Unknown Address Unknown Organization [id number]:[facility] - [address] [place] [address] Laboratory Report Ordering Provider Test Date Status SOMMER YANG 10/23/2024 11:05:49 Final Observation Date Value Abnormality Reference (Units ) Status BUN 10/23/2024 11:05:49 17 6-20 (mg/dL) Final Creatinine 10/23/2024 11:05:49 1.1 0.6-1.2 (mg/dL) Final Glomerular filtration rate/1.73 sq M.predicted [Volume Rate/Area] in Serum, Plasma or Blood by Creatinine-based formula (CKD-EPI) 10/23/2024 11:05:49 68 >=60 (mL/min) Final eGFR is calculated based on the CKD-EPI 2020 equation. Sodium 10/23/2024 11:05:49 142 135-146 (m mol/L) Final Potassium 10/23/2024 11:05:49 4.4 3.5-5.1 (m mol/L) Final Cl 10/23/2024 11:05:49 103 98-107 (mm ol/L) Final CO2 10/23/2024 11:05:49 26 22-32 (mmo l/L) Final Anion gap 10/23/2024 11:05:49 13 7-15 (mmol /L) Final Glucose 10/23/2024 11:05:49 110 70-120 (mg /dL) Final Calcium 10/23/2024 11:05:49 10.2 8.4-10.2 ( mg/dL) Final Performing Location LAB[facility]ATORY [facility] 57-1 0 - [address] [place] [address]
--- OUTSIDE RECORDS SUMMARY | 2024-12-03 16:52 | External Medical Summary | Summary of Care ---
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) Aortic root dilatation (HCC) CKD (chronic kidney disease), 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) MCC current use of 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 Mixed dyslipidemia History of endovascular stent graft for abdominal aortic aneurysm 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) Procedures CTA ABD/PELVIS Trey Culver PA-C [address] [place] [address] Phone: tel: fax: Referral ID Status Reason Start Date Expiration Date V isits Requested Visits Authorized [id number] Authorized 10/23/2024 999 999 Reason for Visit * Reason Comments Follow Up Encounter Details Date Type Department Care Team (Latest Contact Info) Description 10/23/2024 10:10 AM EST Office Visit Vascular Surgery, Health system [address] [facility] [place] [phone] Walt Raphael MD [address] [place] [address] 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)*; 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); Aortic root dilatation (HCC); CKD (chronic kidney disease), stage II; 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); MCC current use of 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; Mixed dyslipidemia; [...] ns:COPD, 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 determined ([facility]) Inhale 3 mL by mouth every [...] Release 24 Hour (toPROL XL)Indications:At herosclerosis of [place] coronary artery of [place] heart without angina pectoris TAKE 1 TABLET [...] ons: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),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 [id number] 09/18/2015 [facility] HTN, goal below 140/90 Iliac artery thrombosis, 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 [facility] Internal hemorrhoids 07/24/2007 Macular degeneration (senile) of retina 06/26/2014 Nonexudative age-related macular degeneration, bilateral, intermediate dry stage Other seborrheic keratosis 06/17/2002 [place]-surgical removal under local anesthesia Saddle embolus of pulmonary artery (HCC) 12/23/2013 Admitted [place] Tobacco use disorder Vitamin D deficiency 11/25/2009 [...] 60% ENDOVASC ABDO REPR W/BI DEVICE 02/13/2015 [facility] ENDOVASC ABDO REPR W/BI DEVICE N/A 02/13/2015 Repair of aorta and iliac aneurysms with Medtronic Endurant device (Main body: [phone], Right iliac limb extension: 21-71-74, Left iliac limb 20-66-698) by Dr. Lee. FEM/POP ARTERY REVASC W/ STENT+ANGIOPLASTY Left 09/22/2015 FEM/POP ARTERY REVASC W/ STENT+ANGIOPLASTY performed by Clayton Lee MD at OR [facility] INJECTION OF EYE DRUG Right 07/05/2017 # [...] performed by Clayton Lee MD at OR [facility] IR EMBOLIZATION ARTERIAL NON HEMMORHAGE Right 02/13/2015 right iliac IR EMBOLIZATION ARTERIAL NON HEMMORHAGE Right 02/13/2015 Embolization of right internal iliac artery with 16 mm Amplatzer Vascular Plug by Dr. Lee. IR FILTER REMOVAL VENA CAVA 01/27/2014 IR PLACEMENT IVC FILTER 12/23/2013 [facility] LIGATION/BIOPSY OF TEMPORAL ARTERY Bilateral 09/28/2018 no vasculitis seen MISCELLANEOUS ORDER ([facility] ONLY) Bilateral 07/05/17-07/05/18 [facility] OU CONSENT SIGNED, Dr. Adrienne MICHELLE ORDER ([facility] ONLY) Bilateral 07/17/2018-07/17/2019 [facility] CONSENT OU SIGNED; DR ADRIENNE MICHELLE ORDER ([facility] ONLY) Bilateral 07/25/2019-07/25/2020 [facility] CONSENT OU SIGNED; DR ADRIENNE MICHELLE ORDER ([facility] ONLY) ACT 112 signed, 11/14/2019 OTHER [...] performed by Clayton Lee MD at OR [facility] US AAA SCREEN, VASCULAR LAB N/A 10/05/2016 [...] sclerae normal. NEUROLOGIC: motor function grossly intact. [facility] PULSE SCALE: Carotid Right:----Bruit: No Left:----Bruit: [...] liver measuring 3.5cm. 08/17/21; Location of Study: [facility]; Modality: duplex; AAA measures 3.5 cm [...] on 2023 TTe Patient is followed by [facility] Cardiology HTN. Dyslipidemia. Reformed smoker 04/2021. [...] extremity/left groin access We discussed risks (, OK, CVA, bleeding, clotting, embolizing, colonic ischemia, buttock [...] answered, and informed consent was obtained. The [facility] Abdominal Aortic Aneurysm Stent Graft Booklet was given to the patient. Walt Raphael MD Section of Vascular and Endovascular Surgery [facility] [place] [address] [phone] documented in this encounter Nursing Notes * Chelsea Jefferson, GEODETIC SURVEY DIRECTOR - 10/23/2024 9:56 AM EST Patient stated no change in medications. Reviewed the option of transferring scripts to [facility] pharmacy with patient and / or family. Chelsea Jefefrson CMA documented in this encounter Miscellaneous Notes * Addendum Note - Trey Culver PA-C - 10/23/2024 2:20 PM ESTAddended by: TREY CULVER on: 10/23/2024 02:20 PM Modules accepted: Orders documented in this encounter Plan of Treatment Upcoming Encounters Date Type Department Care Team (Late st Contact Info) Description 11/21/2024 8:30 AM EDT Office Visit Orthopaedics [address] [phone] Edwin Staples MD [address] [place] [phone] 12/23/2024 11:45 AM EDT Office Visit Ophthalmology, Health system [address] [place] [phone] Mau Deleon DO [address] [place] [phone] 12/25/2024 8:40 AM EDT Office Visit Family Medicine [address] [phone] Fran Peres MD [address] [place] [address] [place] [address] 01/06/2025 Hospital Encounter OR [facility], OPERATING ROOM [facility], NATALIE BARRAZA [address] [place] [phone] Walt Raphael MD [address] [place] [address] 01/22/2025 9:15 AM EDT Imaging Radiology [facility] [address] [place] [phone] 01/29/2025 10:30 AM EDT Office Visit Vascular Surgery, Health system [address] [place] [phone] Walt Raphael MD [address] [place] [facility] [place] [address] 08/12/2025 9:30 AM EST Office Visit Cardiology [address] [place] [address] Jesus Alberto Montiel PA-C [address] [place] [address] Scheduled Orders Name Type Priority Associated Diagnoses Orde r Schedule CTA ABD/PELVIS Medical Imaging Routine 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) Aortic root dilatation (HCC) CKD (chronic kidney disease), 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 Mixed [...] 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) MCC current use of 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 Mixed dyslipidemia History of endovascular stent graft for abdominal aortic aneurysm 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) Pre-op testing OPEN BRACHIAL ARTERY EXPOSUR E FOR ENDOVASCULAR PROSTHESIS 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) Aortic root dilatation (HCC) CKD (chronic kidney disease), 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 Mixed dyslipidemia History of endovascular stent graft for abdominal aortic aneurysm 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) Pre-op testing Health Maintenance Due Date Last Done Comments DISCUSS TOBACCO CESSATION (REFER TO SMARTSET #[id number]) 1935 Alpha-1 Antitrypsin 11/23/1955 Depression Screening 04/23/2021 [...] this encounter Medical Devices Implanted Type Area Superintendent Building Device Identifier Shelf Expiration Date Model / Serial / Lot Graft Aaa Bif [id number] - [id number] - [id number] Implanted:Qty: 1 on 02/13/2015 by Clayton Lee MD at OR [facility] Aorta [employer] : VASCULAR 12/02/2016 [id number] / [id number] / Limb Contralat [id number] - [id number] - [id number] Implanted:Qty: 1 on 02/13/2015 by Clayton Lee MD at OR [facility] Aorta [employer] : VASCULAR 11/19/2016 [id number] / [id number] / Limb Contralat [id number] - [id number] - [id number] Implanted:Qty: 1 on 02/13/2015 by Clayton Lee MD at OR [facility] Aorta [employer] : VASCULAR [id number] / [id number] / Plug Vasc Ampl 16mm [id number] - [id number] Implanted:Qty: 1 on 02/13/2015 by Clayton Lee MD at OR [facility] Aorta [facility] MEDICAL TREVON 9-PLUG-0 16 / / documented as of this encounter Procedures Procedure Name Priority Date/Time Associated Diagnosis Comments DIFFERENTIAL, AUTOMATED Routine 10/23/2024 11:05 AM EST 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) Aortic root dilatation (HCC) CKD (chronic kidney disease), 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) MCC current use of 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 Mixed dyslipidemia History of endovascular stent graft for abdominal aortic aneurysm 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) Pre-op testing BASIC METABOLIC PANEL Routine 10/23/2024 11:05 AM EST 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) Aortic root dilatation (HCC) CKD (chronic kidney disease), 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) MCC current use of 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 Mixed dyslipidemia History of endovascular stent graft for abdominal aortic aneurysm 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) CBC Routine 10/23/2024 11:05 AM EST 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) Aortic root dilatation (HCC) CKD (chronic kidney disease), 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 Mixed dyslipidemia History of endovascular stent graft for abdominal aortic aneurysm 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) Pre-op testing CBC Routine 10/23/2024 11:05 AM EST 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) Aortic root dilatation (HCC) CKD (chronic kidney disease), 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 Mixed [...] al Result [facility] [place] [phone] * (ABNORMAL) CBC (10/23/2024 11:05 AM EST) WBC 8.15 4.00 - 10.80 K/uL 10/23/2024 11:20 AM EST LAB[facility]ATORY [facility] 57-10 RBC 5.31 4.50 - 5.25 M/uL 10/23/2024 11:20 AM EST LABORATORY [facility] 57-10 HGB 17.1(H) 14.0 - 16.8 g/dL 10/23/2024 11:20 AM EST LABORATORY [facility] 57-10 HCT 51.5(H) 40.0 - 48.4 % 10/23/2024 11:20 AM EST [facility] MCV 97.0 82.0 - 99.5 fL 10/23/2024 11:20 AM EST LABORATORY [facility] 57-10 MCH 32.2 27.0 - 34.0 pg 10/23/2024 11:20 AM EST [facility] MCHC 33.2 32.0 - 36.0 g/dL 10/23/2024 11:20 AM EST LABORATORY [facility] 57-10 RDW 14.4 11.5 - 15.5 % 10/23/2024 11:20 AM EST LABORATORY [facility] 57-10 PLT 206 140 - 400 K/uL 10/23/2024 11:20 AM EST LABORATORY [facility] 57-10 MPV 9.8 6.6 - 11.1 fL 10/23/2024 11:20 AM EST LABORATORY [facility] 57-10 Blood Venous blood specimen / Unknown Venipuncture / Unknown 10/23/2024 11:05 AM EST 10/23/2024 11:05 AM EST us Trey Culver PA-C LAB BLOOD ORDERABLES Fin al Result LABORATORY [facility] [place] [id number] * BASIC METABOLIC PANEL (10/23/2024 11:05 AM EST) BUN 17 6 - 20 mg/dL 10/23/2024 12:14 PM EST LABORATORY [facility] CREATININE 1.1 0.6 - 1.2 [...] MEDICAL CENTER Co de Phone Number LABORATORY [facility] [address] [facility] [place] [address] documented in this encounter Visit Diagnoses Diagnosis 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 Care Teams Sales Representative Livestock Relationship Specialty Start Date End Date Fran Peres MD [address] [place] [address] [place] [phone] PCP - General Family Medicine 12/13/23 documented as of this encounter
--- OUTSIDE RECORDS SUMMARY | 2024-12-03 16:52 | External Medical Summary ---
Author Name Unknown Address Unknown Organization [id number]:LABORATORY [facility] - [address] [place] [address] Laboratory Report Ordering Provider Test Date Status SOMMER YANG 10/23/2024 11:05:49 Final Observation Date Value Abnormality Reference (Units ) Status WBC, Total 10/23/2024 11:05:49 8.15 4.00-10.8 0 (K/uL) Final RBC 10/23/2024 11:05:49 5.31 4.50-5.25 (M/uL) Final Hemoglobin 10/23/2024 11:05:49 17.1 Above high normal 1 4.0-16.8 (g/dL) Final HCT 10/23/2024 11:05:49 51.5 Above high normal 40 .0-48.4 (%) Final MCV 10/23/2024 11:05:49 97.0 82.0-99.5 (fL) Final MCH 10/23/2024 11:05:49 32.2 27.0-34.0 (pg) Final MCHC 10/23/2024 11:05:49 33.2 32.0-36.0 (g/dL) Final RDW 10/23/2024 11:05:49 14.4 11.5-15.5 (%) Final Platelets 10/23/2024 11:05:49 206 140-400 (K /uL) Final MPV 10/23/2024 11:05:49 9.8 6.6-11.1 ( fL) Final Performing Location LABORATORY [facility] 0 - [address] [place] [address]
--- OUTSIDE RECORDS SUMMARY | 2024-12-03 16:52 | External Medical Summary | Summary of Care ---
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) Aortic root dilatation (HCC) CKD (chronic kidney disease), 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) alf current use of 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 Mixed dyslipidemia History of endovascular stent graft for abdominal aortic aneurysm 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) Procedures CTA ABD/PELVIS Trey Culver PA-C [address] [place] [address] Phone: tel: fax: Referral ID Status Reason Start Date Expiration Date V isits Requested Visits Authorized [id number] Authorized 10/23/2024 999 999 Reason for Visit * Reason Comments Follow Up Encounter Details Date Type Department Care Team (Latest Contact Info) Description 10/23/2024 10:10 AM EST Office Visit Vascular Surgery, [facility] [address] [facility] [place] [address] Walt Raphael MD [address] [place] [address] 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)*; 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); Aortic root dilatation (HCC); CKD (chronic kidney disease), stage II; 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); alf current use of 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; Mixed dyslipidemia; [...] Solution (Duoneb)Indicatio ns:COPD, 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 determined ([facility]) Inhale 3 mL by mouth [...] Release 24 Hour (toPROL XL)Indications:At herosclerosis of [place] coronary artery of [place] heart without angina pectoris TAKE 1 TABLET [...] ons: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),Homozygous MTHFR mutation [id number],Hx pulmonary embolism Take 1 Tablet by mouth [...] 07/16/2020 Primary 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 of both knees 08/01/2019 alf current use of 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 0 03/04/2019 Actinic keratosis 12/12/2018 Atherosclerosis of [place] 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[place] heart without angina pectoris 04/19/2018 Abdominal aortic aneurysm without rupture 2015 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 Primary 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 [...] 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 [id number] 09/18/2015 [facility] HTN, goal below 140/90 Iliac artery thrombosis, 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 [facility] Internal hemorrhoids 07/24/2007 Macular degeneration (senile) of retina 06/26/2014 Nonexudative age-related macular degeneration, bilateral, intermediate dry stage Other seborrheic keratosis 06/17/2002 [place]-surgical removal under local anesthesia Saddle embolus of pulmonary artery (HCC) 12/23/2013 Admitted [place] Tobacco use disorder Vitamin D deficiency 11/25/2009 [...] 60% ENDOVASC ABDO REPR W/BI DEVICE 02/13/2015 [facility] ENDOVASC ABDO REPR W/BI DEVICE N/A 02/13/2015 Repair of aorta and iliac aneurysms with Medtronic Endurant device (Main body: [phone], Right iliac limb extension: 20-81-67, Left iliac limb 82-30-054) by Dr. Lee. FEM/POP ARTERY REVASC W/ STENT+ANGIOPLASTY Left 09/22/2015 FEM/POP ARTERY REVASC W/ STENT+ANGIOPLASTY performed by Clayton Lee MD at [place] [facility] INJECTION OF EYE DRUG Right 07/05/2017 # [...] Right 10/28/2021 # 19 E[place]a OD, Dr. Deelon INJECTION OF EYE DRUG Left 10/28/2021 # [...] performed by Clayton Lee MD at [place] [facility] IR EMBOLIZATION ARTERIAL NON HEMMORHAGE Right 02/13/2015 right iliac IR EMBOLIZATION ARTERIAL NON HEMMORHAGE Right 02/13/2015 Embolization of right internal iliac artery with 16 mm Amplatzer Vascular Plug by Dr. Lee. IR FILTER REMOVAL VENA CAVA 01/27/2014 IR PLACEMENT IVC FILTER 12/23/2013 [facility] LIGATION/BIOPSY OF TEMPORAL ARTERY Bilateral 09/28/2018 no vasculitis seen MISCELLANEOUS ORDER ([facility] ONLY) Bilateral 07/05/17-07/05/18 EYLE[facility] OU CONSENT SIGNED, Dr. Adrienne MICHELLE ORDER ([facility] ONLY) Bilateral 07/17/2018-07/17/2019 [place] CONSENT OU SIGNED; DR ADRIENNE MICHELLE ORDER ([facility] ONLY) Bilateral 07/25/2019-07/25/2020 E[place] CONSENT OU SIGNED; DR ADRIENNE MICHELLE ORDER ([facility] ONLY) ACT 112 signed, 11/14/2019 [...] performed by Clayton Lee MD at [place] [facility] US AAA SCREEN, VASCULAR LAB N/A 10/05/2016 [...] sclerae normal. NEUROLOGIC: motor function grossly intact. [facility] PULSE SCALE: Carotid Right:----Bruit: No [...] liver measuring 3.5cm. 08/17/21; Location of Study: [facility]; Modality: duplex; AAA measures 3.5 cm [...] on 2023 TTe Patient is followed by [facility] Cardiology HTN. Dyslipidemia. Reformed smoker 04/2021. [...] extremity/left groin access We discussed risks (, LA, CVA, bleeding, clotting, embolizing, colonic ischemia, buttock [...] answered, and informed consent was obtained. The [facility] Abdominal Aortic Aneurysm Stent Graft Booklet was given to the patient. Walt Raphael MD Section of Vascular and Endovascular [place] [address] [phone] documented in this encounter Nursing Notes * Chelsea Jefferson, RELATIONSHIP SPECIALIST - 10/23/2024 9:56 AM EST Patient stated no change in medications. Reviewed the option of transferring scripts to [facility] pharmacy with patient and / or [...] 11/21/2024 8:30 AM EDT Office Visit Orthopaedics [address] [phone] Edwin Staples MD [address] [place] [phone] 12/23/2024 11:45 AM EDT Office Visit Ophthalmology, [facility] [address] [place] [address] Mau Deleon DO [address] [place] [address] 12/25/2024 8:40 AM EDT Office Visit Family Medicine [address] [phone] Fran Peres MD [address] [place] [address] [place] [address] 01/06/2025 Hospital Encounter [facility], OPERATING ROOM [facility], NATALIE BARRAZA [address] [place] [phone] Walt Raphael MD [address] [place] [address] 01/22/2025 9:15 AM EDT Imaging Radiology [facility] [address] [place] [phone] 01/29/2025 10:30 AM EDT Office Visit Vascular Surgery, [facility] [address] [place] [address] Walt Raphael MD [address] [place] [facility] [place] [address] 08/12/2025 9:30 AM EST Office Visit Cardiology [address] [place] [address] Jesus Alberto Montiel PA-C [address] [place] [address] Scheduled Orders Name Type Priority Associated Diagnoses Orde r Schedule CTA ABD/PELVIS Medical Imaging Routine 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) Aortic root dilatation (HCC) CKD (chronic kidney disease), 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 Mixed dyslipidemia [...] 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) alf current use of 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 Mixed dyslipidemia History of endovascular stent graft for abdominal aortic aneurysm 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) Pre-op testing OPEN BRACHIAL ARTERY EXPOSUR E FOR ENDOVASCULAR PROSTHESIS 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) Aortic root dilatation (HCC) CKD (chronic kidney disease), 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 Mixed dyslipidemia History of endovascular stent graft for abdominal aortic aneurysm 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) Pre-op testing Health Maintenance Due Date Last Done Comments DISCUSS TOBACCO CESSATION (REFER TO SMARTSET #3294) 1935 Alpha-1 Antitrypsin 11/23/1953 Depression Screening 04/23/2021 [...] this encounter Medical Devices Implanted Type Area Brake Repairer Air Device Identifier Shelf Expiration Date Model / Serial / Lot Graft Aaa Bif [id number] - [id number] - [id number] Implanted:Qty: 1 on 02/13/2015 by Clayton Lee MD [place] [facility] Aorta [employer] : VASCULAR 12/02/2016 [id number] / [id number] / Limb Contralat [id number] - [id number] - [id number] Implanted:Qty: 1 on 02/13/2015 by Clayton Lee MD at [place] [facility] Aorta [employer] : VASCULAR 11/19/2016 [id number] / [id number] / Limb Contralat [id number] - [id number] - [id number] Implanted:Qty: 1 on 02/13/2015 by Clayton Lee MD at [place] [facility] Aorta [employer] : VASCULAR [id number] / [id number] / Plug Vasc Ampl 16mm 9-Plug-016 - [id number] Implanted:Qty: 1 on 02/13/2015 by Clayton Lee MD at [place] [facility] Aorta [facility] MEDICAL TREVON 9-PLUG-0 16 / / documented as of this encounter Procedures Procedure Name Priority Date/Time Associated Diagnosis Comments DIFFERENTIAL, AUTOMATED Routine 10/23/2024 11:05 AM EST 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) Aortic root dilatation (HCC) CKD (chronic kidney disease), 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) alf current use of 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 Mixed dyslipidemia History of endovascular stent graft for abdominal aortic aneurysm 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) Pre-op testing BASIC METABOLIC PANEL Routine 10/23/2024 11:05 AM EST 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) Aortic root dilatation (HCC) CKD (chronic kidney disease), 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) alf current use of 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 Mixed dyslipidemia History of endovascular stent graft for abdominal aortic aneurysm 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) CBC Routine 10/23/2024 11:05 AM EST 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) Aortic root dilatation (HCC) CKD (chronic kidney disease), 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 Mixed dyslipidemia History of endovascular stent graft for abdominal aortic aneurysm 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) Pre-op testing CBC Routine 10/23/2024 11:05 AM EST 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) Aortic root dilatation (HCC) CKD (chronic kidney disease), 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 Mixed dyslipidemia [...] al Result [facility] [place] [address] * (ABNORMAL) CBC (10/23/2024 11:05 AM EST) WBC 8.15 4.00 - 10.80 K/uL 10/23/2024 11:20 AM EST LABORATORY [facility] MJ 57-10 RBC 5.31 4.50 - 5.25 M/uL 10/23/2024 11:20 AM EST LABORATORY [facility] MJ 57-10 HGB 17.1(H) 14.0 - 16.8 g/dL 10/23/2024 11:20 AM EST LABORATORY [facility] MJ 57-10 HCT 51.5(H) 40.0 - 48.4 % 10/23/2024 11:20 AM EST [facility] MCV 97.0 82.0 - 99.5 fL 10/23/2024 11:20 AM EST LABORATORY [facility] MJ 57-10 MCH 32.2 27.0 - 34.0 pg 10/23/2024 11:20 AM EST [facility] MCHC 33.2 32.0 - 36.0 g/dL 10/23/2024 11:20 AM EST LABORATORY [facility] MJ 57-10 RDW 14.4 11.5 - 15.5 % 10/23/2024 11:20 AM EST LABORATORY [facility] MJ 57-10 PLT 206 140 - 400 K/uL 10/23/2024 11:20 AM EST LABORATORY [facility] MJ 57-10 MPV 9.8 6.6 - 11.1 fL 10/23/2024 11:20 AM EST LABORATORY [facility] MJ 57-10 Blood Venous blood specimen / Unknown Venipuncture / Unknown 10/23/2024 11:05 AM EST 10/23/2024 11:05 AM EST us Trey Culver PA-C LAB BLOOD ORDERABLES Fin al Result LABORATORY [facility] MJ 57-10 [address] [place] [address] * BASIC METABOLIC PANEL (10/23/2024 11:05 AM EST) BUN 17 6 - 20 mg/dL 10/23/2024 12:14 PM EST LABORATORY [facility] MJ 57Liane CREATININE 1.1 0.6 - 1.2 [...] ORDERABLES Fin al Result Performing Organization Address City/State/[facility] Co de Phone Number LABORATORY [facility] MJ 57-10 [address] [facility] [place] [address] documented in this encounter Visit Diagnoses Diagnosis 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 Care Teams Water Resources Engineer Relationship Specialty Start Date End Date Fran Peres MD [address] [place] [address] [place] [address] PCP - General Family Medicine 12/13/23 documented as of this encounter
--- OUTSIDE RECORDS SUMMARY | 2024-12-03 16:52 | External Medical Summary | Summary of Care ---
Author Name Unknown Organization [facility] Address [address] [place] [address] Phone [phone] Care Team Providers Care Agriculture Inspector Name Role Phone Fran Peres MD Primary Care Provide r Reason for Visit * Reason Onset Date Comments Appointment 10/10/2024 Encounter Details Date Type Department Care Team (Late st Contact Info) Description 10/10/2024 Telephone Vascular Surg [facility] [address] [place], [place] [phone] Rohit Diamond CRNP [address] [place], [place] [phone] Appointment Allergies No known active allergiesdocumented as [...] ons: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),Homozygous MTHFR mutation I7415W,Hx pulmonary embolism Take 1 Tablet by mouth [...] Release 24 Hour (toPROL XL)Indications:At herosclerosis of [place] coronary artery of [place] heart without angina pectoris TAKE 1 TABLET [...] 07/16/2020 Primary 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 of both knees 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/2019 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 Left message to return phone call Renita [...] plan to arrange return clinic visit at [facility] for further evaluation and discussion of treatment options. Understanding and agreement voiced. Renita, Can you please reach out o Mr. Powers and is to arrange for return clinic visit at [facility] as noted above. Thanks Rohit documented in this encounter Plan of Treatment Upcoming Encounters Date Type Department Care Team (Late st Contact Info) Description 10/21/2024 10:30 AM EST Office Visit Ophthalmology, [facility] [address] [place] [address] Mau Deleon DO [address] [place] [address] 10/23/2024 10:10 AM EST Office Visit Vascular Surgery, [facility] [address] [place] [address] Walt Raphael MD [address] [place] [address] 11/21/2024 8:30 AM EDT Office Visit Orthopaedics [address] [phone] Edwin Staples MD [address] [place] [phone] 12/25/2024 8:40 AM EDT Office Visit Family Medicine [address] [place] [address] Fran Peres MD [address] [place] [address] [place] [address] 08/12/2025 9:30 AM EST Office Visit Cardiology [place] [place] [address] Jesus Alberto Montiel PA-C [address] [place] [address] Health Maintenance Due Date Last Done Comments DISCUSS TOBACCO CESSATION (REFER TO SMARTSET #9977) 1935 Alpha-1 Antitrypsin 11/23/1953 Depression Screening 04/23/2021 [...] this encounter Medical Devices Implanted Type Area Sewer Builder Device Identifier Shelf Expiration Date Model / Serial / Lot Graft Aaa Bif [id number] - [id number] - [id number] Implanted:Qty: 1 on 02/13/2015 by Clayton Lee MD at [place] [facility] Aorta [employer] : VASCULAR 12/02/2016 [id number] / [id number] / Limb Contralat [id number] - [id number] - [id number] Implanted:Qty: 1 on 02/13/2015 by Clayton Lee MD at OR [facility] Aorta [employer] : VASCULAR 11/19/2016 [id number] / [id number] / Limb Contralat [id number] - [id number] - [id number] Implanted:Qty: 1 on 02/13/2015 by Clayton Lee MD at OR [facility] Aorta [employer] : VASCULAR [id number] / [id number] / Plug Vasc Ampl 16mm 9-Plug-016 - [id number] Implanted:Qty: 1 on 02/13/2015 by Clayton Lee MD at OR [facility] Aorta [employer] 9-PLUG-0 16 / / documented as of [...] and were consensually agreed upon. Care Teams Agriculture Inspector Relationship Specialty Start Date End Date Fran Peres MD [address] [place] [address] [place] [address] PCP - General Family Medicine 12/13/23 documented as of this encounter
--- OUTSIDE RECORDS SUMMARY | 2024-12-03 16:52 | External Medical Summary | Summary of Care ---
Author Name Unknown Organization [facility] Address [address] [facility] [place] [address] Phone [phone] Care Team Providers Care Property And Equipment Clerk Name Role Phone Fran Peres MD Primary Care Provide r Reason for Visit * Reason Comments Medication Refill Encounter Details Date Type Department Care Team (Late st Contact Info) Description 10/21/2024 Refill Family Medicine [address] [place] [phone] Fran Peres MD [address] [place] [address] [place] [address] 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); Homozygous MTHFR mutation R7909C; Hx pulmonary embolism Allergies No known active allergiesdocumented as of this encounter (statuses as of 10/22/2024) Medications Cyanocobalamin (VITAMIN B-12) 6000 MCG SUBL [...] 24 Hour (toPROL XL)Indications:At herosclerosis of [place] coronary artery of [place] heart without angina pectoris TAKE 1 TABLET [...] ons: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),Homozygous MTHFR mutation U4030L,Hx pulmonary embolism Take 1 Tablet by mouth in the morning and 1 Tablet before bedtime. 200 Tablet 1 10/22/19 25 Active Apixaban 5 MG Oral Tablet (Eliquis)Indicati ons: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),Homozygous MTHFR mutation C1600U,Hx pulmonary embolism Take 1 Tablet by mouth in the morning and 1 Tablet before bedtime. 200 Tablet 1 4 12:23 PM EST 04/05/20 24 025 Discontin ued(Refil l) Hospital, Clinic, [...] as of this encounter (statuses as of 10/22/2024) Active Problems Problem Noted Date Diagnosed Date [...] 03/04/2019 Actinic keratosis 12/12/2018 Atherosclerosis of [place] 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[place] heart without angina pectoris 04/19/2018 Abdominal aortic aneurysm without rupture 2015 Homozygous MTHFR mutation Y0438A 09/14/2015 Factor V 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 12/30/2013 Overview (12/30/2013): has one copy of Factor V 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 Mixed dyslipidemia 11/25/2009 GENERAL OSTEOARTHROSIS Tobacco use disorder Exudative age-related macula r degeneration of both eyes with active choroidal neovascularization documented as of this encounter (statuses as of 10/22/2024) Resolved Problems Problem Noted Date Diagnosed Date [...] as of this encounter (statuses as of 10/22/2024) Immunizations Name Administration Dates Next Due COVID-19 [...] encounter Miscellaneous Notes * Telephone Encounter - Rodrigo Garcia, [facility] - 10/22/2024 8:40 AM ESTSigned Prescriptions: Disp Refills Apixaban 5 MG Oral Tablet (Eliquis) 200 Ta*1 Sig: Take 1 Tablet by mouth in the morning and 1 Tablet before bedtime.Authorizing Provider: Rashmi PERES User: RODRIGO GARCIA documented in this encounter Plan of Treatment Upcoming Encounters Date Type Department Care Team (Late st Contact Info) Description 10/23/2024 10:10 AM EST Office Visit Vascular Surgery, [facility] [address] [place] [address] Walt [facility]hael MD [address] [facility] [address] 11/21/2024 8:30 AM EDT Office Visit Orthopaedics [address] [phone] Edwin Staples MD [address] [place] [phone] 12/23/2024 11:45 AM EDT Office Visit Ophthalmology, [facility] [address] [place] [address] Mau Deleon DO [address] [place] [address] 12/25/2024 8:40 AM EDT Office Visit Family Medicine [address] [phone] Fran Peres MD [address] [place] [address] [place] [address] 08/12/2025 9:30 AM EST Office Visit Cardiology [address] [place] [address] Jesus Alberto Montiel, PAZeeC [address] [place] [address] Health Maintenance Due Date Last Done Comments DISCUSS TOBACCO CESSATION (REFER TO SMARTSET #3291) 1935 Alpha-1 Antitrypsin 11/23/1953 Depression Screening 04/23/2021 [...] this encounter Medical Devices Implanted Type Area Fire Assistant Device Identifier Shelf Expiration Date Model / Serial / Lot Graft Aaa Bif [id number] - [id number] - [id number] Implanted:Qty: 1 on 02/13/2015 by Clayton Lee MD at OR [facility] Aorta [employer] : VASCULAR 12/02/2016 [id number] / [id number] / Limb Contralat [id number] - [id number] - [id number] Implanted:Qty: 1 on 02/13/2015 by Clayton Lee MD at OR [facility] Aorta [employer] : VASCULAR 11/19/2016 [id number] / [id number] / Limb Contralat [id number] - [id number] - [id number] Implanted:Qty: 1 on 02/13/2015 by Clayton Lee MD at OR [facility] Aorta [employer] : VASCULAR [id number] / [id number] / Plug Vasc Ampl 16mm 9-Plug-016 - [id number] Implanted:Qty: 1 on 02/13/2015 by Clayton Lee MD at OR [facility] Aorta [employer] MEDICAL TREVON 9-PLUG-0 16 / / documented as of this encounter Visit Diagnoses Diagnosis 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) Primary hypercoagulable state Homozygous MTHFR mutation F3628L Disturbances of sulphur-bearing amino-acid metabolism Hx pulmonary embolism Personal history of pulmonary embolism documented in this encounter Advance Directives * [...] and were consensually agreed upon. Care Teams Property And Equipment Clerk Relationship Specialty Start Date End Date Fran Peres MD [address] [place] [address] [place] [address] PCP - General Family Medicine 12/13/23 documented as of this encounter
--- OUTSIDE RECORDS SUMMARY | 2024-12-03 16:53 | External Medical Summary | Summary of Care ---
Author Name Unknown Organization [facility] Address [address] [place] [facility] [place] [place] [address] Phone [phone] Care Team Providers Care Spout Liner Name Role Phone Fran Peres MD Primary Care Provide r Reason for Visit * Reason Comments Pain * Precert (Within 30 days (routine)) - Authorized Specialty Diagnoses / Procedures Referred By Jody t Referred To Contact Orthopedics Diagnoses Bilateral primary 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 of knee Procedures [place] GEL-SYN INJECTION 0.1 MG Edwin Staples MD [address] [place] [address] Phone: tel: fax: Edwin Staples MD [address] [place] [address] Phone: tel: fax: Referral ID Status Reason Start Date Expiration Date V isits Requested Visits Authorized [id number] Authorized Precert 09/29/2023 09/28/[id number] Encounter Details Date Type Department Care Team (Latest Contact Info) Description 09/19/2024 10:30 AM EST Office Visit Orthopaedics [address] [phone] Edwin Staples MD [address] [place] [address] Primary 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 of both knees* Allergies No known active allergiesdocumented as of this encounter (statuses as of 09/20/2024) Medications Cyanocobalamin (VITAMIN B-12) 6000 MCG SUBL [...] 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 determined ([facility]) Inhale 3 mL by mouth every 6 hours as needed for Shortness of Breath. 372 mL 5 1 Active Docusate Sodium 100 MG Oral Capsule (Colace)Indicatio ns:Constipation, unspecified constipation type Take 1 Cap by mouth daily. 60 Cap 2 1 Active Additional Information Patient taking differently:100 mg OralPRN, Reported on 09/12/2024 Calcium 200 MG Oral Tablet Take 200 mg by mouth in the morning. 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 60 Tablet 5 07/12/2024 2:08 PM EDT 4 Active Allopurinol 100 MG Oral Tablet (Zyloprim)Indicat ions:Gouty arthropathy Take 1 Tablet by mouth in the morning. 90 Tablet 1 07/12/2024 2:08 PM EDT 4 Active Sertraline HCl 50 MG Oral Tablet (Zoloft)Indicatio ns:Anxiety Take 1 Tablet by mouth in the morning. 90 Tablet 1 07/30/2024 5:54 PM EST 4 Active predniSONE 20 MG Oral Tablet (Deltasone)Indica tions:Tinnitus of both ears One daily 10 Tablet 5 025 Active Loratadine 10 MG Oral Tablet (Claritin)Indicat ions:Tinnitus of both ears Take 1 Tablet by mouth in the morning. 30 Tablet 5 Active busPIRone HCl 10 MG Oral Tablet (Buspar)Indicatio ns:PURVI (generalized anxiety disorder) Take 1 Tablet by mouth in the morning and 1 Tablet before bedtime. 60 Tablet 5 Active Hospital, Clinic, or Other Facility [...] 1.5 mg IJ PRN 07/09/2024 07/09/2025 Active sodium hyaluronate (Gelsyn-3) 16.8 MG/2ML inj 16.8 mgIndications:Primary 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 of both knees 16.8 mg IX ONCE 09/19/2024 09/19/2024 Ended sodium hyaluronate (Gelsyn-3) 16.8 MG/2ML inj 16.8 mgIndications:Primary 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 of both knees 16.8 mg IX ONCE 09/19/2024 09/19/2024 Ended documented as of this encounter (statuses as of 09/20/2024) Active Problems Problem Noted Date Diagnosed Date Other emphysema 12/13/2023 BMI 26.0-26.9,adult 11/08/2022 Emphysema of lung 07/07/2021 Aortic root dilatation 07/07/2021 Ascending aortic aneurysm 07/07/2021 Nonrheumatic mitral valve regurgitation 07/07/20 CKD (chronic kidney disease), stage II Overview (04/29/2021): EGFR 66.5 Hx pulmonary embolism 07/16/2020 Primary 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 of both knees 08/01/2019 pan cleaner current use of 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 0 03/04/2019 Actinic keratosis 12/12/2018 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 04/19/2018 Abdominal aortic aneurysm without rupture 2015 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 09/14/2015 Factor V 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 12/30/2013 Overview (12/30/2013): has one copy of Factor V 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 Mixed dyslipidemia 11/25/2009 GENERAL OSTEOARTHROSIS Tobacco use disorder Exudative age-related macula r degeneration of both eyes with active choroidal neovascularization documented as of this encounter (statuses as of 09/20/2024) Resolved Problems Problem Noted Date Diagnosed Date [...] pulmonary artery 12/23/2013 04/19/2018 Overview (12/25/2013): Admitted [place] Encounter for examination fo r normal comparison [...] as of this encounter (statuses as of 09/20/2024) Immunizations Name Administration Dates Next Due COVID-19 [...] as of this encounter Progress Notes * Edwin Staples MD - 09/19/2024 10:30 AM EST PROCEDURE NOTE: KNEE INJECTION (Gelsyn #2) Laterality: Bilateral Time out: Prior to aspiration and injection, a time out was called to confirm the administration of appropriate medicine, patient name, procedure and confirm to the best of our ability and knowledge the presence of any necessary risks and benefits. Patient verbalized understanding. Ultrasound utilized to guide injection. During the procedure, the needle was visualized in plane and was advanced with continuous ultrasound guidance to the appropriate anatomical landmark as described in the procedure. Ultrasound required due to failed previous injection done without fluoroscopic or ultrasound guidance Sterile technique applied using gloves, chlorhexadine, and alcohol swabs. Ethyl chloride spray for local anesthetic. Knee injected at superior-lateral recess using 1.5 inch, 22 gauge needle with Gelsyn. Patient tolerated procedure with no significant bleeding or adverse reaction. Patient instructed to call or return to clinic for fever, warmth, unusual redness at injection sitefor potential infection. Patient also advised regarding post-procedural pain. Edwin Staples MD Sports Medicine Primary Care Orthopaedics [address] [phone] documented in this encounter Nursing Notes * Cornelia Doan LPN - 09/19/2024 10:27 AM EST Fup SECOND of a series Gelsyn injections Pt is unaccompanied today Rashmi Vela LPN documented in this encounter Plan of Treatment Upcoming Encounters Date Type Department Care Team (Late st Contact Info) Description 09/26/2024 8:30 AM EST Imaging Vascular Lab, [facility] [place] [address] [facility] [place] [address] 09/26/2024 10:30 AM EST Office Visit Orthopaedics [address] [phone] Edwin Staples MD [address] [place] [address] 10/02/2024 11:50 AM EST Office Visit Vascular Surgery, [facility] [address] [facility] [place] [address] Walt Raphael MD [address] [place] [address] 10/08/2024 9:30 AM EST Office Visit Cardiology [address] [place] [address] Jesus Alberto Montiel PA-C [address] [place] [address] 10/21/2024 10:30 AM EST Office Visit Ophthalmology, [facility] [address] [place] [address] Mau Deleon DO [address] [place] [address] 12/25/2024 8:40 AM EDT Office Visit Family Medicine [address] [phone] Fran Peres MD [address] [place] [address] [place] [address] Health Maintenance Due Date Last Done Comments DISCUSS TOBACCO CESSATION (REFER TO SMARTSET #[id number]) 1935 Alpha-1 Antitrypsin 11/23/1955 Depression Screening 04/23/2021 [...] this encounter Medical Devices Implanted Type Area Electromechanisms Design Drafter Device Identifier Shelf Expiration Date Model / Serial / Lot Graft Aaa Bif [id number] - [id number] - [id number] Implanted:Qty: 1 on 02/13/2015 by Clayton Lee MD at OR [facility] [place] Aorta [employer] : VASCULAR 12/02/2016 [id number] / [id number] / Limb Contralat [id number] - [id number] - [id number] Implanted:Qty: 1 on 02/13/2015 by Clayton Lee MD at OR [facility] [place] Aorta [employer] : VASCULAR 11/19/2016 [id number] / [id number] / Limb Contralat [id number] - [id number] - [id number] Implanted:Qty: 1 on 02/13/2015 by Clayton Lee MD at OR [facility] [place] Aorta [employer] : VASCULAR [id number] / [id number] / Plug Vasc Ampl 16mm 9-Plug-016 - [id number] Implanted:Qty: 1 on 02/13/2015 by Clayton Lee MD at OR [facility] [place] Aorta BigML TREVON 9-PLUG-0 16 / / documented as of this encounter Procedures Procedure Name Priority Date/Time Associated Diagnosis Comments POINT OF CARE US MAJOR JOINT INJECTION, ORTHO Routine 09/19/2024 7:38 PM EST Primary 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 of both knees documented in this encounter Results * POINT OF CARE US MAJOR JOINT INJECTION, ORTHO (09/19/2024 7:38 PM EST) Anatomical Region Laterality Modality Musculoskeletal Radiographic Jacquelyn ging 09/19/2024 7:38 PM EST Narrative 09/20/2024 2:43 PM EST Patient Name: BYRON POWERS : 1935 (88y) Male Performing Provider: Edwin Staples (digitally signed Sep 20, 2024 14:43 EST) Attending: Edwin Staples (digitally signed Sep 20, 2024 14:43 EST) [Impression] : PROCEDURE NOTE: KNEE INJECTION (Gelsyn #2) Laterality: Bilateral Time out: Prior to aspiration and injection, a time out was called to confirm the administration of appropriate medicine, patient name, procedure and confirm to the best of our ability and knowledge the presence of any necessary risks and benefits. Patient verbalized understanding. Ultrasound utilized to guide injection. During the procedure, the needle was visualized in plane and was advanced with continuous ultrasound guidance to the appropriate anatomical landmark as described in the procedure. Ultrasound required due to failed previous injection done without fluoroscopic or ultrasound guidance Sterile technique applied using gloves, chlorhexadine, and alcohol swabs. Ethyl chloride spray for local anesthetic. Knee injected at superior-lateral recess using 1.5 inch, 22 gauge needle with Gelsyn. Patient tolerated procedure with no significant bleeding or adverse reaction. Patient instructed to call or return to clinic for fever, warmth, unusual redness at injection site for potential infection. Patient also advised regarding post-procedural pain. Procedure Note Edwin Staples MD - 09/20/2024 Patient Name: BYRON POWERS : 1935 (88y) Male Performing Provider: Edwin Staples (digitally signed Sep 20, 2024 14:43EST) Attending: Edwin Staples (digitally signed Sep 20, 2024 14:43 EST) [Impression] : PROCEDURE NOTE: KNEE INJECTION (Gelsyn #2) Laterality: Bilateral Time out: Prior to aspiration and injection, a time out was called to confirm theadministration of appropriate medicine, patient name, procedure andconfirm to the best of our ability and knowledge the presence of anynecessary risks and benefits. Patient verbalized understanding. Ultrasound utilized to guide injection. During the procedure, the needle was visualized in plane and was advancedwith continuous ultrasound guidance to the appropriate anatomical landmarkas described in the procedure. Ultrasound required due to failed previous injection done withoutfluoroscopic or ultrasound guidance Sterile technique applied using gloves, chlorhexadine, and alcoholswabs. Ethyl chloride spray for local anesthetic. Knee injected at superior-lateral recess using 1.5 inch, 22 gauge needlewith Gelsyn. Patient tolerated procedure with no significant bleeding or adversereaction. Patient instructed to call or return to clinic for fever, warmth, unusualredness at injection site for potential infection. Patient also advisedregarding post- procedural pain. us Edwin Staples MD RAD ULTRASOUND Fin al Result documented in this encounter Visit Diagnoses Diagnosis Primary 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 of both knees- Primary Primary localized osteoarthrosis, lower leg documented in this encounter Administered Medications Inactive Administered Medications - up to 3 most recent administrations Medication Order NOV Action Action Date Dose Rate Site sodium hyaluronate (Gelsyn-3) 16.8 MG/2ML inj 16.8 mg 16.8 mg, Intra-Articular, ONCE, On Faviola 09/19/24 at 1100, For 1 doseIndications:Primary 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 of both knees Given 09/19/2024 10:53 AM EST 16.8 mg Knee Right sodium hyaluronate (Gelsyn-3) 16.8 MG/2ML inj 16.8 mg 16.8 mg, Intra-Articular, ONCE, On Faviola 09/19/24 at 1100, For 1 doseIndications:Primary 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 of both knees Given 09/19/2024 10:52 AM EST 16.8 mg Knee Left documented in this encounter Advance Directives [...] and were consensually agreed upon. Care Teams Spout Liner Relationship Specialty Start Date End Date Fran Peres MD [address] [place] [address] [place] [phone] PCP - General Family Medicine 12/13/23 documented as of this encounter
--- OUTSIDE RECORDS SUMMARY | 2024-12-03 16:53 | External Medical Summary ---
Author Name Unknown Address Unknown Organization K01:[facility] [place] [address] [address] Laboratory Report Ordering Provider Test Date Status BALJEET MATTHEW 10/08/2024 10:00:04 Final Observation Date Value Abnormality Reference (Units ) Status Creatinine 10/08/2024 10:00:04 1.1 0.6-1.2 (mg/dL) Final Glomerular filtration rate/1.73 sq M.predicted [Volume Rate/Area] in Serum, Plasma or Blood by Creatinine-based formula (CKD-EPI) 10/08/2024 10:00:04 68 >=60 (mL/min) Final eGFR is calculated based on the CKD-EPI 2020 equation. Performing Location [facility] [place] [address] [place] [address]
--- OUTSIDE RECORDS SUMMARY | 2024-12-03 16:53 | External Medical Summary | Summary of Care ---
Author Name Unknown Organization [facility] Address [address] [place] [facility] [place] [address] Phone [phone] Care Team Providers Care Cigar Inspector Name Role Phone Fran Peres MD Primary Care Provide r Reason for Visit * Reason Comments Pain * Precert (Within 30 days (routine)) - Authorized Specialty Diagnoses / Procedures Referred By Jody t Referred To Contact Orthopedics Diagnoses Bilateral primary 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 of knee Procedures [place] GEL-SYN INJECTION 0.1 MG Edwin Staples MD [address] [place] [address] Phone: tel: fax: Edwin Staples MD [address] [place] [address] Phone: tel: fax: Referral ID Status Reason Start Date Expiration Date V isits Requested Visits Authorized [id number] Authorized Precert 09/29/2023 09/28/[phone] Encounter Details Date Type Department Care Team (Latest Contact Info) Description 09/26/2024 10:30 AM EST Office Visit Orthopaedics [address] [phone] Edwin Staples MD [address] [place] [address] Primary 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 of both knees* Allergies No known active allergiesdocumented as of this encounter (statuses as of 09/26/2024) Medications Cyanocobalamin (VITAMIN B-12) 6000 MCG SUBL [...] by mouth in the morning. 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 TAKE 1 TABLET [...] of both knees 16.8 mg IX ONCE 09/26/2024 09/26/2024 Ended sodium hyaluronate (Gelsyn-3) 16.8 MG/2ML inj 16.8 mgIndications:Primary 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 of both knees 16.8 mg IX ONCE 09/26/2024 09/26/2024 Ended documented as of this encounter (statuses as of 09/26/2024) Active Problems Problem Noted Date Diagnosed Date Other emphysema 12/13/2023 BMI 26.0-26.9,adult 11/08/2022 Emphysema of lung 07/07/2021 Aortic root dilatation 07/07/2021 Ascending aortic aneurysm 07/07/2021 Nonrheumatic mitral valve regurgitation 07/07/20 CKD (chronic kidney disease), stage II Overview (04/29/2021): EGFR 66.5 Hx pulmonary embolism 07/16/2020 Primary 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 of both knees 08/01/2019 retirement current use of 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 0 03/04/2019 Actinic keratosis 12/12/2018 Atherosclerosis of [place] 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[place] heart without angina pectoris 04/19/2018 Abdominal aortic aneurysm without rupture 2015 Homozygous MTHFR mutation 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 09/14/2015 Factor V 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 12/30/2013 Overview (12/30/2013): has one copy of Factor V 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 Mixed dyslipidemia 11/25/2009 GENERAL OSTEOARTHROSIS Tobacco use disorder Exudative age-related macula r degeneration of both eyes with active choroidal neovascularization documented as of this encounter (statuses as of 09/26/2024) Resolved Problems Problem Noted Date Diagnosed Date [...] pulmonary artery 12/23/2013 04/19/2018 Overview (12/25/2013): Admitted [place] Encounter for examination fo r normal comparison [...] as of this encounter (statuses as of 09/26/2024) Immunizations Name Administration Dates Next Due COVID-19 [...] Progress Notes * Edwin Staples MD - 09/26/2024 10:30 AM EST PROCEDURE NOTE: KNEE INJECTION (Gelsyn #3) Laterality: Bilateral Time out: Prior to aspiration [...] Staples MD Sports Medicine Primary Care Orthopaedics [address] [phone] documented in this encounter Nursing Notes * Cornelia Doan LPN - 09/26/2024 10:28 AM EST F/u THIRD of a series Gelsyn injections Pt is unaccompanied today Rashmi Vela LPN documented in this encounter Plan of Treatment Upcoming Encounters Date Type Department Care Team (Late st Contact Info) Description 10/02/2024 11:50 AM EST Office Visit Vascular Surgery, [facility] [address] [place] [address] Walt Raphael MD [address] [place] [address] 10/08/2024 9:30 AM EST Office Visit Cardiology [address] [place] [address] Jesus Alberto Montiel PA-C [address] [place] [address] 10/21/2024 10:30 AM EST Office Visit Ophthalmology, [facility] [address] [place] [address] Mau Deleon DO [address] [place] [address] 11/21/2024 8:30 AM EDT Office Visit Orthopaedics [address] [phone] Edwin Staples MD [address] [place] [address] 12/25/2024 8:40 AM EDT Office Visit Family Medicine [address] [phone] Fran Peres MD [address] [place] [address] [place] [address] Scheduled Orders Name Type Priority Associated Diagnoses Orde r Schedule POINT OF CARE US MAJOR JOINT INJECTION, ORTHO Medical Imaging Routine Primary 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 of both knees Ordered: 09/26/2024 Health Maintenance Due Date Last Done Comments [...] this encounter Medical Devices Implanted Type Area Cancer Spec Device Identifier Shelf Expiration Date Model / Serial / Lot Graft Aaa Bif [id number] - [id number] - [id number] Implanted:Qty: 1 on 02/13/2015 by Clayton Lee MD [place] [facility]orta [employer] : VASCULAR 12/02/2016 [id number] / [id number] / Limb Contralat [id number] - [id number] - [id number] Implanted:Qty: 1 on 02/13/2015 by Clayton Lee MD [place] [facility] [employer] : VASCULAR 11/19/2016 [id number] / [id number] / Limb Contralat [id number] - [id number] - [id number] Implanted:Qty: 1 on 02/13/2015 by Clayton Lee MD at [place] [facility] [employer] : VASCULAR [id number] / [id number] / Plug Vasc Ampl 16mm 9-Plug-016 - [id number] Implanted:Qty: 1 on 02/13/2015 by Clayton Lee MD at [place] [facility] Aorta Fluoresentric MEDICAL TREVON 9-PLUG-0 16 / / documented as of this encounter Visit Diagnoses Diagnosis Primary 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 of both knees- Primary Primary localized osteoarthrosis, lower leg documented in this encounter Administered Medications Inactive Administered Medications - up to 3 most recent administrations Medication Order MAR Action Action Date Dose Rate Site sodium hyaluronate (Gelsyn-3) 16.8 MG/2ML inj 16.8 mg 16.8 mg, Intra-Articular, ONCE, On Faviola 09/26/24 at 1045, For 1 doseIndications:Primary 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 of both knees Given 09/26/2024 11:48 AM EST 16.8 mg Knee Right sodium hyaluronate (Gelsyn-3) 16.8 MG/2ML inj 16.8 mg 16.8 mg, Intra-Articular, ONCE, On Faviola 09/26/24 at 1045, For 1 doseIndications:Primary 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 of both knees Given 09/26/2024 11:48 AM EST 16.8 mg Knee Left documented [...] and were consensually agreed upon. Care Teams Cigar Inspector Relationship Specialty Start Date End Date Fran Peres MD [address] [place] [address] [place] [address] PCP - General Family Medicine 12/13/23 documented as of this encounter
--- OUTSIDE RECORDS SUMMARY | 2024-12-03 16:53 | External Medical Summary | Summary of Care ---
Author Name Unknown Organization [facility] Address [address] [facility] [place] [address] Phone [phone] Care Team Providers Care Natural Resources Technician Name Role Phone Fran Peres MD Primary Care Provide r Encounter Details Date Type Department Care Team (Late st Contact Info) Description 09/30/2024 Population Health External Data Unspecified Department Allergies No known active allergiesdocumented as of this encounter (statuses as of 09/30/2024) Medications Cyanocobalamin (VITAMIN B-12) 6000 MCG SUBL [...] ons: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),Homozygous MTHFR mutation O1423V,Hx pulmonary embolism Take 1 Tablet by mouth [...] Release 24 Hour (toPROL XL)Indications:At herosclerosis of [place] coronary artery of [place] heart without angina pectoris TAKE 1 TABLET [...] as of this encounter (statuses as of 09/30/2024) Active Problems Problem Noted Date Diagnosed Date Other emphysema 12/13/2023 BMI 26.0-26.9,adult 11/08/2022 Emphysema of lung 07/07/2021 Aortic root dilatation 07/07/2021 Ascending aortic aneurysm 07/07/2021 Nonrheumatic mitral valve regurgitation 07/07/20 CKD (chronic kidney disease), stage II 1 Overview (04/29/2021): EGFR 66.5 Hx pulmonary embolism 07/16/2020 Primary 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 of both knees 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 0 03/04/2019 Actinic keratosis 12/12/2018 Atherosclerosis of [place] 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[place] heart without angina pectoris 04/19/2018 Abdominal aortic aneurysm without rupture 2015 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 09/14/2015 Factor V 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 12/30/2013 Overview (12/30/2013): has one copy of Factor V 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 Mixed dyslipidemia 11/25/2009 GENERAL OSTEOARTHROSIS Tobacco use disorder Exudative age-related macula r degeneration of both eyes with active choroidal neovascularization documented as of this encounter (statuses as of 09/30/2024) Resolved Problems Problem Noted Date Diagnosed Date [...] pulmonary artery 12/23/2013 04/19/2018 Overview (12/25/2013): Admitted [place] Encounter for examination fo r normal comparison [...] as of this encounter (statuses as of 09/30/2024) Immunizations Name Administration Dates Next Due COVID-19 [...] Care Team (Late st Contact Info) Description 10/08/2024 9:30 AM EST Office Visit Cardiology [address] [place] [address] Jesus Alberto Montiel PA-C [address] [place] [address] 10/09/2024 11:15 AM EST Imaging Radiology [address] [place] [phone] 10/21/2024 10:30 AM EST [facility] [place] [address] Mau Deleon DO [address] [place] [address] 11/21/2024 8:30 AM EDT Office Visit Orthopaedics [address] [place] [phone] Edwin Staples MD [address] [place] [address] 12/25/2024 8:40 AM EDT Office Visit Family Medicine [address] [place] [phone] Fran Peres MD [address] [place] [address] [place] [address] Health Maintenance Due Date Last Done Comments DISCUSS TOBACCO CESSATION (REFER TO SMARTSET #1071) 1935 Alpha-1 Antitrypsin 11/23/1953 Depression Screening 04/23/2021 [...] this encounter Medical Devices Implanted Type Area Datapower Consultant Device Identifier Shelf Expiration Date Model / Serial / Lot Graft Aaa Bif [id number] - [id number] - [id number] Implanted:Qty: 1 on 02/13/2015 by Clayton Lee MD [place] [facility] [place] [employer] : VASCULAR 12/02/2016 [id number] / [id number] / Limb Contralat [id number] - [id number] - [id number] Implanted:Qty: 1 on 02/13/2015 by Clayton Lee MD [place] [facility] [place] [employer] : VASCULAR 11/19/2016 [id number] / [id number] / Limb Contralat [id number] - [id number] - [id number] Implanted:Qty: 1 on 02/13/2015 by Clayton Lee MD [place] [facility] [place] [employer] : VASCULAR [id number] / [id number] / Plug Vasc Ampl 16mm 9-Plug-016 - [id number] Implanted:Qty: 1 on 02/13/2015 by Clayton Lee MD [place] [facility] Aorta [employer] TREVON 9-PLUG-0 16 / / documented as [...] and were consensually agreed upon. Care Teams Natural Resources Technician Relationship Specialty Start Date End Date Fran Peres MD [address] [place] [address] [place] [address] PCP - General Family Medicine 12/13/23 documented as of this encounter
--- OUTSIDE RECORDS SUMMARY | 2024-12-03 16:53 | External Medical Summary | Summary of Care ---
Author Name Unknown Organization [facility] Address [address] [place] [address] Phone [phone] Care Team Providers Care Vitamin Manager Name Role Phone Fran Peres MD Primary Care Provide r Reason for Referral * Precert (Within 10 days (routine)) - Authorized Specialty Diagnoses / Procedures Referred By Jody wright Referred To Contact Radiology Diagnoses Abdominal aortic aneurysm (AAA) without rupture, unspecified part (HCC) Status post endovascular aneurysm repair (EVAR) Procedures CTA ABD/PELVIS Rohit Diamond CRNP [address] [place] [address] Phone: tel: fax: Referral ID Status Reason Start Date Expiration Date V isits Requested Visits Authorized [id number] Authorized 10/07/2024 999 999 Reason for Visit * Reason Comments AAA Encounter Details Date Type Department Care Team (Latest Contact Info) Description 09/30/2024 3:00 PM EST Telemedicine Vascular Surg [facility] [address] [place], [place] [id number] Rohit Diamond CRNP [address] [place] [address] Abdominal aortic aneurysm (AAA) without rupture, unspecified part (HCC)*; Status post endovascular aneurysm repair (EVAR); 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; GENERAL OSTEOARTHROSIS; Mixed dyslipidemia; 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); Homozygous MTHFR mutation O5074I; Hx pulmonary embolism Allergies No known active [...] Solution (Duoneb)Indicatio ns:COPD, 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 determined ([facility]) Inhale 3 mL by mouth [...] ons: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),Homozygous MTHFR mutation P4153D,Hx pulmonary embolism Take 1 Tablet by mouth [...] Release 24 Hour (toPROL XL)Indications:At herosclerosis of [place] coronary artery of [place] heart without angina pectoris TAKE 1 TABLET [...] Primary 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 of both knees 08/01/2019 senior living current use of 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 0 03/04/2019 Actinic keratosis 12/12/2018 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 without angina pectoris 04/19/2018 Abdominal aortic aneurysm without rupture 2015 Homozygous MTHFR mutation G7512I 09/14/2015 Factor V 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 12/30/2013 Overview [...] as of this encounter Progress Notes * Rohit Diamond, BRANDY - 09/30/2024 2:11 PM EST As per patient preference, connection with the patient and his via audio only occurred. The patient/ was informed this was a phone call only visit and was identified by name and date of . The patient/ agreed to participate. Total call duration was 10 minutes. Date of Service: 09/30/2024 2:11 PM Jeff Powers is a 88 year old male. Patient being seen in consultation at the request of Roni Kenyon MD Chief Complaint: Surveillance of 2015 EVAR. Spoke through Mr. Powers's has Jeff his [place] hearing. Reports no interval changes in overall health since last telephonic visit back in 08/2023. HPI: Reformed smoker with PMH of HTN, dyslipidemia, CKD and emphysema. Patient underwent embolization of RIIA and repair of aortic/iliac aneurysms with Medtronic Endurantdevice 02/13/[address] Lee. Surveillance imaging noted left endograft limb thrombus. Underwent an angiogram on 09/22/2015 which revealed a non-occlusive thrombus in left [...] at that time and subsequently removed at [facility] 01/27/2014. Was noted to have Factor V [...] 200 mg by mouth in the morning. Apixaban 5 MG Oral Tablet (Eliquis) Take 1 Tablet by mouth in the morning and 1 Tablet before bedtime. 200 Tablet 1 Rosuvastatin Calcium 40 MG Oral Tablet (Crestor) [...] and 1 Tablet before bedtime. 60 Tablet 0 Current Facility-Administered Medications Medication Dose Route Frequency Provider Last Rate Last Admin Aflibercept (Eylea) intraviteal prefilled syringe 2 mg 2 mg Intravitreal PRN 2 mg at 09/05/24 1024 ROPivacaine (Naropin) inj 1.5 mg 1.5 mg Injection PRN 1.5 mg at 09/05/24 1024 Review of patient's allergies indicates: No Known Allergies Patient Active Problem List Diagnosis GENERAL OSTEOARTHROSIS Tobacco use disorder Mixed dyslipidemia 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) Homozygous MTHFR mutation N5500Z Abdominal aortic aneurysm without rupture (HCC) BMI 26.0-26.9,adult 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) Atherosclerosis of [place] coronary artery of [place] heart without angina pectoris Actinic keratosis 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 Primary 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 [...] 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 P4883V 09/18/2015 [facility] HTN, goal below 140/90 Iliac artery thrombosis, 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 [facility] Internal hemorrhoids 07/24/2007 Macular degeneration (senile) of retina 06/26/2014 Nonexudative age-related macular degeneration, bilateral, intermediate dry stage Other seborrheic keratosis 06/17/2002 maulik-surgical removal under local anesthesia 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 Lee. FEM/POP ARTERY REVASC W/ STENT+ANGIOPLASTY Left 09/22/2015 FEM/POP ARTERY REVASC W/ STENT+ANGIOPLASTY performed by Clayton Lee MD at OR [facility] INJECTION OF EYE DRUG Right 07/05/2017 # [...] DRUG Right 10/11/2018 #8 Eylea OD, Dr Deleon INJECTION OF EYE DRUG Left 10/11/2018 #7 Eylea OS, Dr. Cessna INJECTION OF EYE DRUG Right 01/17/2019 # [...] Left 09/05/2024 #34 Eylea OS, Dr. Deleon IR ARTERIOGRAM EXTREMITY UNILATERAL Left 09/22/2015 IMAGING SUPERVISION & INTERPRETATION EXTREMITY UNILATERAL performed by Clayton Lee MD at OR [facility] IR EMBOLIZATION ARTERIAL NON HEMMORHAGE Right 02/13/2015 right iliac IR EMBOLIZATION ARTERIAL NON HEMMORHAGE Right 02/13/2015 Embolization of right internal iliac artery with 16 mm Amplatzer Vascular Plug by Dr. Lee. IR FILTER REMOVAL VENA CAVA 01/27/2014 IR PLACEMENT IVC FILTER 12/23/2013 [facility] LIGATION/BIOPSY OF TEMPORAL ARTERY Bilateral 09/28/2018 no vasculitis seen MISCELLANEOUS ORDER ([facility] ONLY) Bilateral 07/05/17-07/05/18 EYLEA OU CONSENT SIGNED, Dr. Deleon MISCELLANEOUS ORDER ([facility] ONLY) Bilateral 07/17/2018-07/17/2019 EYLEA CONSENT OU SIGNED; DR DELEON MISCELLANEOUS ORDER ([facility] ONLY) Bilateral 07/25/2019-07/25/2020 EYLEA CONSENT OU SIGNED; DR DELEON MISCELLANEOUS ORDER ([facility] ONLY) ACT 112 signed, 11/14/2019 OTHER (INFORMATION) [...] performed by Clayton Lee MD at OR [facility] AAA SCREEN, VASCULAR LAB N/A 10/05/2016 endograft [...] since quittin.4 Smokeless tobacco: Never Tobacco comments: 08/31/22 4-5 little cigars, declined pamphlet Vaping [...] On anticoagulation. Msk: left hip fracture 04/2021. GENERAL MULTI-SYSTEM PHYSICAL EXAM: PER 08/31/2022 CLINIC VISIT GENERAL: Normal grooming habits, no acute distress and appears stated age. RESPIRATORY: Respiratory effort normal and lungs diminished but clear. CARDIOVASCULAR: RRR, heart tones distant, no edema GASTROINTESTINAL: Obese, aorta not palpable, non-tender. SKIN: feet without ulcerations. PSYCHIATRIC: Orientation to time, place and person normal and recent and remote memory normal. EYES: sclerae normal. NEUROLOGIC: motor function grossly intact. PULSE SCALE: Carotid Right:----Bruit: No Left:----Bruit: No Radial Right: 2 Left: 2 Femoral Right: 2 Left: 2 Popliteal Right: 2 Left: 2 Dorsalis Pedis Right: 0 Left: 0 Posterior Tibial Right: 2 Left: 2 PULSE SCALE: 4=Aneurysmal; 3=Normal; 2=Diminished; 1=Barely Palpable; 0=Absent DIAGNOSTIC STUDIES: Date: 09/26/2024; Location of Study: [facility]; Modality: duplex; AAA measures 3.6 x 4.7 cm in greatest transverse dimension. R DONIS 1.5 cm and L DONIS 3.1 cm. Evidence suggestive of an endoleak at the left stent graft limb by color flow duplex. The above diagnostic images were directly visualized and independently interpreted by me on 09/30/2024 with results as above 08/18/23: aortic duplex: 3.6 cm residual sac, R limb 1.7 cm, L limb 3.3 cm 08/31/22: Aortic duplex: distal aorta 3.6cm, R limb 1.4cm, L limb 3.2cm. avascular structure in liver measuring 3.5cm. Date: 08/17/2021; Location of Study: [facility]; Modality: duplex; AAA measures 3.5 cm in greatest transverse dimension. R limb 98 cm/sec, 2.2 cm, GUNNER [...] with velocity of 111, ALMA DELIA 95 11/30/2015 CTA Stable appearance of the aortobi-iliac endograft with no evidence of an endoleak. Thepreviously described thrombus within the left iliac limb has predominantly resolved. Aortic Aneurysmal sac 3.1 cm, R DONIS aneurysma sac 3.3 cm and L DONIS 2.6 cm. 11/30/2015 Aortic Duplex 2.6 cm aneurysmal sac with no endoleak. Patency demonstrated throughout. 09/18/2015 Aortic Duplex Echo density once again present to mid/distal left endograft limb. 09/14/2015 Aortic Duplex Aorta 108, R limb 50, R EIA 101, L Limb 100, echo density present with velocity of 65, L EIA 60. Date: 09/07/2015; Location of Study: [facility]; Modality: CT; AAA measures 3.2 cm in greatest transverse dimension. R DONIS 3.4 cm and L DONIS 2.9 cm. No evidence of endoleak. New nonocclusive intraluminal thrombus in the left common iliac artery. Date: 03/26/2015; Location of Study: [facility]; Modality: CT; AAA measures 3.2 cm in greatest transverse dimension. R DONIS 3.4 cm, L DONIS 2.6. No endoleak. 02/17/15 RLE art duplex: No pseudoaneurysm or AVF demonstrated. Date: 02/04/2015; Location of Study: [facility]; Modality: CT; AAA measures 3.2 cm in greatest transverse dimension. R DONIS 3.4 cm and L 2.6 cm. LABS: Creatinine Results: Lab Results Component Value Date/Time CREATININE - [facility] 1.1 09/12/2024 09:45 AM CREATININE - [facility] 1.0 07/12/2024 11:56 AM CREATININE - [facility] 1.0 03/26/2024 10:09 AM CREATININE - [facility] 0.93 11/05/2022 12:00 [...] 03:30 PM HGB 15.2 07/19/2018 04:54 PM Hemoglobin A1C last 3 results: No results found for: "HEM" The above clinical lab tests were reviewed by me on 09/30/2024. IMPRESSIONS: S/P embolization of RIIA with 16 mm Amplatzer Vascular Plug3 and repair of AAA/DONIS aneurysms with Medtronic Endurant device 02/13/[address] Lee H/O L DVT/PE 2013. Factor V Leiden Deficiency. Homozygous MTHFR mutation HTN. Dyslipidemia. Reformed smoker 04/2021. General OA, bilateral knees H/O right leg crush injury. S/P left hip fracture 04/2021. PLAN: Patient was counseled on the pathophysiology and natural history of AAA as well as the signs to initiate emergency medical attention. 09/26/224 aortic duplex demonstrating possible endoleak with increase in aneurysmal sac. No report of new abdominal, flank or back pain. Recommend obtaining CTA abd/pel to more clearly access for endoleak and actual aneurysmal sac size. Continue 75mg Plavix for vasculopathy/stent patency. Continue BID 5 mg Eliquis (for hx DVT/PE/Factor V Leiden). Continue Crestor 40mg daily for dyslipidemia and pleiotropic effects. Will arrange for CTA abd/pel to be completed at [facility] within the next 1-2 weeks. Serum creatinine also ordered to be completed at nearest [facility] facility a few days prior to CTA. Will reviewonce imaging is available and call Mr. Powers and his with the results and formulate future plan. Daylin Madrid CRNP Section of Vascular and Endovascular Surgery [place], [place] [id number] [phone] documented in this encounter Plan of Treatment Upcoming Encounters Date Type Department Care Team (Late st Contact Info) Description 10/08/2024 9:30 AM EST Office Visit Cardiology [address] [place] [address] Jesus Alberto Montiel PAZeeC [address] [place] [address] 10/21/2024 10:30 AM EST Office Visit Ophthalmology, [facility] [address] [place] [address] Mau Deleon DO [address] [place] [address] 11/21/2024 8:30 AM EDT Office Visit Orthopaedics [address] [phone] Edwin Staples MD [address] [place] [address] 12/25/2024 8:40 AM EDT Office Visit Family Medicine [address] [phone] Fran Peres MD [address] [place] [address] [place] [address] Scheduled Orders Name Type Priority Associated Diagnoses Orde r Schedule CREATININE Lab Routine Abdominal aortic aneurysm (AAA) without rupture, unspecified part (HCC) Status post endovascular aneurysm repair (EVAR) Expected: 09/30/2024, Expires: 09/30/2025 CTA ABD/PELVIS Medical Imaging Routine Abdominal aortic aneurysm (AAA) without rupture, unspecified part (HCC) Status post endovascular aneurysm repair (EVAR) Expected: 10/07/2024 (Approximate), Expires: 10/31/2025 Health Maintenance Due Date Last Done Comments DISCUSS TOBACCO CESSATION (REFER TO SMARTSET #9197) 1935 Alpha-1 Antitrypsin 11/23/1953 Depression Screening 04/23/2021 [...] this encounter Medical Devices Implanted Type Area Cigar Bander Device Identifier Shelf Expiration Date Model / Serial / Lot Graft Aaa Bif [id number] - [id number] - [id number] Implanted:Qty: 1 on 02/13/2015 by Clayton Lee MD at [place] [facility] Aorta [employer] : VASCULAR 12/02/2016 [id number] / [id number] / Limb Contralat [id number] - [id number] - [id number] Implanted:Qty: 1 on 02/13/2015 by Clayton Lee MD at OR [facility] Aorta [employer] : VASCULAR 11/19/2016 [id number] / [id number] / Limb Contralat [id number] - [id number] - [id number] Implanted:Qty: 1 on 02/13/2015 by Clayton Lee MD at OR [facility] Aorta [employer] : VASCULAR [id number] / [id number] / Plug Vasc Ampl 16mm 9-Plug-016 - [id number] Implanted:Qty: 1 on 02/13/2015 by Clayton Lee MD at OR [facility] Aorta lifeaction games TREVON 9-PLUG-0 16 / / documented as of this encounter Visit Diagnoses Diagnosis Abdominal aortic aneurysm (AAA) without rupture, unspecified part (HCC)- Primary Status post endovascular aneurysm repair (EVAR) 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 Care Teams Vitamin Manager Relationship Specialty Start Date End Date Fran Peres MD [address] [place] [address] [place] [address] PCP - General Family Medicine 12/13/23 documented as of this encounter
--- OUTSIDE RECORDS SUMMARY | 2024-12-03 16:53 | External Medical Summary | Summary of Care ---
Author Name Unknown Organization [facility] Address [address] [place] [address] Phone [phone] Care Team Providers Care Supplier Specialist Name Role Phone Fran Peres MD Primary Care Provide r Encounter Details Date Type Department Care Team (Late st Contact Info) Description 10/10/2024 Telephone Vascular Surg [facility] [address] [place] [address] Rohit Diamond CRNP [address] [place] [address] Allergies No known active allergiesdocumented as of [...] ons: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),Homozygous MTHFR mutation R5709E,Hx pulmonary embolism Take 1 Tablet by mouth [...] Release 24 Hour (toPROL XL)Indications:At herosclerosis of [place] coronary artery of [place] heart without angina pectoris TAKE 1 TABLET [...] 07/16/2020 Primary 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 of both knees 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 Left message to return phone call Renita [...] plan to arrange return clinic visit at [facility] for further evaluation and discussion of treatment options. Understanding and agreement voiced. Renita, Can you please reach out o Mr. Powers and is to arrange for return clinic visit at [facility] as noted above. Thanks Rohit documented in this encounter Plan of Treatment Upcoming Encounters Date Type Department Care Team (Late st Contact Info) Description 10/21/2024 10:30 AM EST Office Visit Ophthalmology, [facility] [address] [place] [address] Mau Deleon DO [address] [place] [address] 11/21/2024 8:30 AM EDT Office Visit Orthopaedics [address] [phone] Edwin Staples MD [address] [place] [phone] 12/25/2024 8:40 AM EDT Office Visit Family Medicine [address] [phone] Fran Peres MD [address] [place] [address] [place] [address] 08/12/2025 9:30 AM EST Office Visit Cardiology [address] [place] [address] Jesus Alberto Montiel PA-C [address] [place] [address] Health Maintenance Due Date Last Done Comments DISCUSS TOBACCO CESSATION (REFER TO SMARTSET #7246) 1935 Alpha-1 Antitrypsin 11/23/1955 Depression Screening 04/23/2021 [...] this encounter Medical Devices Implanted Type Area C.O.D. Audit Clerk Device Identifier Shelf Expiration Date Model / Serial / Lot Graft Aaa Bif [id number] - [id number] - [id number] Implanted:Qty: 1 on 02/13/2015 by Clayton Lee MD at [place] [facility] Aorta [employer] : VASCULAR 12/02/2016 [id number] / [id number] / Limb Contralat [id number] - [id number] - [id number] Implanted:Qty: 1 on 02/13/2015 by Clayton Lee MD at OR [facility] Aorta [employer] : VASCULAR 11/19/2016 [id number] / [id number] / Limb Contralat [id number] - [id number] - [id number] Implanted:Qty: 1 on 02/13/2015 by Clayton Lee MD at OR [facility] Aorta [employer] : VASCULAR [id number] / [id number] / Plug Vasc Ampl 16mm 9-Plug-016 - [id number] Implanted:Qty: 1 on 02/13/2015 by Clayton Lee MD at OR [facility] Aorta Reniac 9-PLUG-0 16 / / documented as of this encounter Advance Directives * Full Code (Latest Code Status on File) Date Activated Date Inactivated Comments 09/22/2015 9:05 AM 09/23/2015 1:51 PM This order reflects the patients wishes and were consensually agreed upon. * Full Code Date Activated Date Inactivated Comments 02/13/2015 2:03 PM 02/14/2015 5:50 PM This order ref lects the patients wishes and were consensually agreed upon. Care Teams Supplier Specialist Relationship Specialty Start Date End Date Fran Peres MD [address] [place] [address] [place] [address] PCP - General Family Medicine 12/13/23 documented as of this encounter
--- OUTSIDE RECORDS SUMMARY | 2024-12-03 16:53 | External Medical Summary | Summary of Care ---
Author Name Unknown Organization [facility] Address [address] [place] [address] Phone [phone] Care Team Providers Care Coloring Checker Name Role Phone Fran Peres MD Primary Care Provide r Reason for Referral * Precert (Within 10 days (routine)) - Authorized Specialty Diagnoses / Procedures Referred By Jody wright Referred To Contact Radiology Diagnoses Abdominal aortic aneurysm (AAA) without rupture, unspecified part (HCC) Status post endovascular aneurysm repair (EVAR) Procedures CTA ABD/PELVIS Rohit Diamond CRNP [address] [place] [address] Phone: tel: fax: Referral ID Status Reason Start Date Expiration Date V isits Requested Visits Authorized [id number] Authorized 10/07/[phone] Reason for Visit * Reason Comments AAA Encounter Details Date Type Department Care Team (Latest Contact Info) Description 09/30/2024 3:00 PM EST Telemedicine Vascular Surg [facility] [address], [place] [id number] Rohit Diamond CRNP [address] [place] [address] Abdominal aortic aneurysm (AAA) without rupture, unspecified part (HCC)*; Status post endovascular aneurysm repair (EVAR); 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; GENERAL OSTEOARTHROSIS; Mixed dyslipidemia; 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); 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; Hx pulmonary embolism Allergies No known active [...] Solution (Duoneb)Indicatio ns:COPD, 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 determined ([facility]) Inhale 3 mL by mouth [...] ons: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),Homozygous MTHFR mutation T6893M,Hx pulmonary embolism Take 1 Tablet by mouth [...] 07/16/2020 Primary 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 of both knees 08/01/2019 [facility] current use of 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 0 03/04/2019 Actinic keratosis 12/12/2018 Atherosclerosis of 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[place] heart without angina pectoris 04/19/2018 Abdominal aortic aneurysm without rupture 2015 Homozygous MTHFR mutation Q8015J 09/14/2015 Factor V 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 12/30/2013 Overview [...] Spoke through Mr. Powers's has Jeff his [place] hearing. Reports no interval changes in overall [...] at that time and subsequently removed at [facility] 01/27/2014. 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 U5714P 09/18/2015 [facility] HTN, goal below 140/90 Iliac artery thrombosis, 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 [facility] Internal hemorrhoids 07/24/2007 Macular degeneration (senile) of retina 06/26/2014 Nonexudative age-related macular degeneration, bilateral, intermediate dry stage Other seborrheic keratosis 06/17/2002 maulik-surgical removal under local anesthesia Saddle embolus of pulmonary artery (HCC) 12/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 Lee. FEM/POP ARTERY REVASC W/ STENT+ANGIOPLASTY Left 09/22/2015 FEM/POP ARTERY REVASC W/ STENT+ANGIOPLASTY performed by Clayton Lee MD at OR [facility] INJECTION OF EYE DRUG Right 07/05/2017 # [...] performed by Clayton Lee MD at OR [facility] IR EMBOLIZATION ARTERIAL NON HEMMORHAGE Right 02/13/2015 right iliac IR EMBOLIZATION ARTERIAL NON HEMMORHAGE Right 02/13/2015 Embolization of right internal iliac artery with 16 mm Amplatzer Vascular Plug by Dr. Lee. IR FILTER REMOVAL VENA CAVA 01/27/2014 IR PLACEMENT IVC FILTER 12/23/2013 [facility] [place]IGATION/BIOPSY OF TEMPORAL ARTERY Bilateral 09/28/2018 no [...] performed by Clayton Lee MD at OR [facility] AAA SCREEN, VASCULAR LAB N/A 10/05/2016 endograft [...] EIA 60. Date: 09/07/2015; Location of Study: [facility]; Modality: CT; AAA measures 3.2 cm in greatest transverse dimension. R DONIS 3.4 cm and L DONIS 2.9 cm. No evidence of endoleak. New nonocclusive intraluminal thrombus in the left common iliac artery. Date: 03/26/2015; Location of Study: [facility]; Modality: CT; AAA measures 3.2 cm in greatest transverse dimension. R DONIS 3.4 cm, L DONIS 2.6. No endoleak. 02/17/15 RLE art duplex: No pseudoaneurysm or AVF demonstrated. Date: 02/04/2015; Location of Study: [facility]; Modality: CT; AAA measures 3.2 cm in [...] for CTA abd/pel to be completed at [facility] within the next 1-2 weeks. Serum creatinine also ordered to be completed at nearest [facility] facility a few days prior to CTA. Will reviewonce imaging is available and call Mr. Powers and his with the results and formulate future plan. Daylin Madrid CRNP Section of Vascular and Endovascular Surgery [place], [place] [address] [phone] documented in this encounter Plan of Treatment Upcoming Encounters Date Type Department Care Team (Late st Contact Info) Description 10/08/2024 9:30 AM EST Office Visit Cardiology [address] [place] [address] Jesus Alberto Montiel PA-C [address] [place] [address] 10/09/2024 11:15 AM EST Imaging Radiology [address] [place] [phone] 10/21/2024 10:30 AM EST Office Visit Ophthalmology, [facility] [address] [place] [address] Mau Deleon, [address] [place] [address] 11/21/2024 8:30 AM EDT Office Visit Orthopaedics [address] [place] [phone] Edwin Staples MD [address] [place] [address] 12/25/2024 8:40 AM EDT Office Visit Family Medicine [address] [place] [phone] Fran Peres MD [address] [place] [address] [place] [address] Scheduled Orders Name Type Priority Associated Diagnoses [...] Comments DISCUSS TOBACCO CESSATION (REFER TO SMARTSET #2122) 1935 Alpha-1 Antitrypsin 11/23/1953 Depression Screening 04/23/2021 [...] this encounter Medical Devices Implanted Type Area Business Analytics Analyst Device Identifier Shelf Expiration Date Model / Serial / Lot Graft Aaa Bif [id number] - [id number] - [id number] Implanted:Qty: 1 on 02/13/2015 by Clayton Lee MD at OR [facility] Aorta [employer] : VASCULAR 12/02/2016 [id number] / [id number] / Limb Contralat [id number] - [id number] - [id number] Implanted:Qty: 1 on 02/13/2015 by Clayton Lee MD at OR [facility] Aorta [employer] : VASCULAR 11/19/2016 [id number] / [id number] / Limb Contralat [id number] - [id number] - [id number] Implanted:Qty: 1 on 02/13/2015 by Clayton Lee MD at OR [facility] Aorta [employer] : VASCULAR [id number] / [id number] / Plug Vasc Ampl 16mm 9-Plug-016 - [id number] Implanted:Qty: 1 on 02/13/2015 by Clayton Lee MD at OR [facility] Aorta [place] TREVON 9-PLUG-0 16 / / documented as of this encounter Visit Diagnoses Diagnosis Abdominal aortic aneurysm (AAA) without rupture, unspecified part (HCC)- Primary Status post endovascular aneurysm repair (EVAR) [facility] current use of 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 GENERAL OSTEOARTHROSIS Generalized osteoarthrosis, unspecified site Mixed dyslipidemia Mixed hyperlipidemia 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) Primary hypercoagulable state Homozygous MTHFR mutation O4984N Disturbances of sulphur-bearing amino-acid metabolism Hx pulmonary [...] 2:03 PM 02/14/2015 5:50 PM This order re flects the patients wishes and were consensually agreed upon. Care Teams Coloring Checker Relationship Specialty Start Date End Date Fran Peres MD [address] [place] [address] [place] [address] PCP - General Family Medicine 12/13/23 documented as of this encounter
--- OUTSIDE RECORDS SUMMARY | 2024-12-03 16:53 | External Medical Summary | Summary of Care ---
Author Name Unknown Organization [facility] Address [address] [place] [address] Phone [phone] Care Team Providers Care Health Workers Name Role Phone Fran Peres MD Primary Care Provide r Reason for Visit * Reason Onset Date Comments STAIR AAA 10/03/2024 Encounter Details Date Type Department Care Team (Late st Contact Info) Description 10/03/2024 Telephone STAIR AAA [address], [place] [id number] Program, Stair [address] [place] [address] STAIR AAA Allergies No known active allergiesdocumented as of this encounter (statuses as of 10/03/2024) Medications Cyanocobalamin (VITAMIN B-12) 6000 MCG SUBL [...] ons: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),Homozygous MTHFR mutation T1062O,Hx pulmonary embolism Take 1 Tablet by mouth [...] Release 24 Hour (toPROL XL)Indications:At herosclerosis of [place] coronary artery of [place] heart without angina pectoris TAKE 1 TABLET [...] Tablet before bedtime. 180 Tablet 2 5 Active Hospital, Clinic, or Other Facility [...] as of this encounter (statuses as of 10/03/2024) Active Problems Problem Noted Date Diagnosed Date Other emphysema 12/13/2023 BMI 26.0-26.9,adult 11/08/2022 Emphysema of lung 07/07/2021 Aortic root dilatation 07/07/2021 Ascending aortic aneurysm 07/07/2021 Nonrheumatic mitral valve regurgitation 07/07/20 21 CKD (chronic kidney disease), stage II 1 Overview (04/29/2021): EGFR 66.5 Hx pulmonary embolism 07/16/2020 Primary 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 of both knees 08/01/2019 [facility] current use of 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 0 03/04/2019 Actinic keratosis 12/12/2018 Atherosclerosis of [place] 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[place] heart without angina pectoris 04/19/2018 Abdominal aortic aneurysm without rupture 2015 Homozygous MTHFR mutation U9801X 09/14/2015 Factor V 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 12/30/2013 Overview (12/30/2013): has one copy of Factor V 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 Mixed dyslipidemia 11/25/2009 GENERAL OSTEOARTHROSIS Tobacco use disorder Exudative age-related macula r degeneration of both eyes with active choroidal neovascularization documented as of this encounter (statuses as of 10/03/2024) Resolved Problems Problem Noted Date Diagnosed Date [...] pulmonary artery 12/23/2013 04/19/2018 Overview (12/25/2013): Admitted [place] Encounter for examination fo r normal comparison [...] as of this encounter (statuses as of 10/03/2024) Immunizations Name Administration Dates Next Due COVID-19 [...] Telephone Encounter - Sofia Alston LPN - 10/03/2024 7:58 AM EST AAA - Clinical Summary Name: Jeff Powers Age: [age] year old AAA Review: Follow-up Follow-up Encounter Provider: Rohit Diamond Patient Identified by: Problem List Report Imaging Interpretation: Duplex Type of Result: SP EVAR AAA Care Plan Imaging Recommendation: CTA - details below Details: Abdomen/Pelvis in 1 week AAA Care Plan Visit Recommendation: No Visit needed Details: None Next steps: No action needed at this time. Patient was seen by vascular surgery yesterday. Next imaging is already scheduled and vascular will follow up with results. Time spent: 15 minutes Sofia Alston LPN Coordinator STAIR (System to Track Abnormalities of Importance Reliably) [facility] AORTIC DUPLEX EVAL-COMPLETE 09/26/2024 Narrative VASCULAR LAB RESULTS DATE OF EXAMINATION: 09/26/24 INDICATION: EVAR This is an interpretation of an exam performed at [facility]. PHYSICIAN REPORT: AORTIC STENT GRAFT DUPLEX EXAMINATION Immediately before proceeding with the vascular lab procedure reported below, the identity of the patient, the correct exam and the correct procedural site were identified. Color flow Doppler and spectral analysis techniques were applied during this ultrasound image examination. The proximal aorta is patent with a velocity of 45.3 cm/sec and a diameter of 2.2 cm by 2.2 cm.. The proximal aortic graft located in the mid-aorta is patent with a velocity of 26.2 cm/sec and a maximum aortic aneurysm sac diameter of 3.1 cm by 3.1 cm. The distal aorta patent with a velocity of 59.6 cm/sec and a maximum aortic aneurysm sac diameter of 3.6 cm by 4.7 cm. The right iliac graft limb is patent with a velocity of 45.4 cm/sec at the distal stent. The maximum diameter of the right limb is 1.5 cm by 1.5 cm. The right external iliac artery has a velocity of 61.4 cm/sec with a triphasic waveform. The left iliac graft limb is patent with a velocity of 21.2 cm/sec at the distal stent. The maximumdiameter of the left limb is 3.1 cm by 3.1 cm. The left external iliac artery has a velocity of 44.0 cm/sec with a triphasic waveform. The aneurysm sac has a maximum transverse dimension of 3.6 cm by 4.7 cm. The aneurysm sac has no color flow within its lumen. CONCLUSIONS: 3.6 cm by 4.7 cm aortic aneurysm sac surrounding an abdominal aortic stent graft. Patent abdominal aortic stent graft and stent graft limbs. Evidence suggestive of an endoleak at the left stent graft limb by color flow duplex. documented in this encounter Plan of Treatment Upcoming Encounters Date Type Department Care Team (Late st Contact Info) Description 10/08/2024 9:30 AM EST Office Visit Cardiology [address] [place] [address] Jesus Alberto Montiel PA-C [address] [facility] [place] [address] 10/09/2024 11:15 AM EST Imaging Radiology [facility] [address] [place] [phone] 10/21/2024 10:30 AM EST Office Visit Ophthalmology, [facility] [address] [place] [address] Mua Deleon DO [address] [place] [address] 11/21/2024 8:30 AM EDT Office Visit Orthopaedics [address] [phone] Edwin Staples MD [address] [place] [phone] 12/25/2024 8:40 AM EDT Office Visit Family Medicine [address] [phone] Fran Peres MD [address] [place], [place] [address] [phone] Health Maintenance Due Date Last Done Comments DISCUSS TOBACCO CESSATION (REFER TO SMARTSET #1182) 1935 Alpha-1 Antitrypsin 11/23/1955 Depression Screening 04/23/2021 [...] this encounter Medical Devices Implanted Type Area It Applications Analyst Device Identifier Shelf Expiration Date Model / Serial / Lot Graft Aaa Bif [id number] - [id number] - [id number] Implanted:Qty: 1 on 02/13/2015 [place] [facility] [place]orta [employer] : VASCULAR 12/02/2016 [id number] / [id number] / Limb Contralat [id number] - [id number] - [id number] Implanted:Qty: 1 on 02/13/2015 by Clayton [place] [facility] [place]orta [employer] : VASCULAR 11/19/2016 [id number] / [id number] / Limb Contralat [id number] - [id number] - [id number] Implanted:Qty: 1 on 02/13/2015 by Clayton Lee [place] [facility] [place]orta [employer] : VASCULAR [id number] / [id number] / Plug Vasc Ampl 16mm 9-Plug-016 - [id number] Implanted:Qty: 1 on 02/13/2015 by Clayton Lee [place] [facility] [place] Aorta [employer] TREVON 9-PLUG-0 16 / / documented as [...] and were consensually agreed upon. Care Teams Health Workers Relationship Specialty Start Date End Date Sellathurai, Thiviyanath, MD [address] [place] [address] [place] [address] PCP - General Family Medicine 12/13/23 documented as of this encounter
--- OUTSIDE RECORDS SUMMARY | 2024-12-03 16:53 | External Medical Summary | Summary of Care ---
Author Name Unknown Organization [facility] Address [address] [facility] [place] [address] Phone [phone] Care Team Providers Care Hand Tool Lapper Name Role Phone Fran Peres MD Primary Care Provide r Reason for Visit * Reason Comments Pain * Precert (Within 30 days (routine)) - Authorized Specialty Diagnoses / Procedures Referred By Jody t Referred To Contact Orthopedics Diagnoses Bilateral primary 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 of knee Procedures VT GEL-SYN INJECTION 0.1 MG Edwin Staples MD [address] [place] [address] Phone: tel: fax: Edwin Staples MD [address] [place] [address] Phone: tel: fax: Referral ID Status Reason Start Date Expiration Date V isits Requested Visits Authorized [id number] Authorized Precert 09/29/2023 09/28/2024 999 [id number] Encounter Details Date Type Department Care Team (Latest Contact Info) Description 09/26/2024 10:30 AM EST Office Visit Orthopaedics [address] [phone] Edwin Staples MD [address] [place] [address] Primary 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 of both knees* Allergies No [...] ns:COPD, 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 determined ([facility]) Inhale 3 mL by mouth every [...] ons: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),Homozygous MTHFR mutation F7514T,Hx pulmonary embolism Take 1 Tablet by mouth [...] Release 24 Hour (toPROL XL)Indications:At herosclerosis of [place] coronary artery of [place] heart without angina pectoris TAKE 1 TABLET [...] knees 16.8 mg IX ONCE 09/26/2024 09/26/2024 Active sodium hyaluronate (Gelsyn-3) 16.8 MG/2ML inj 16.8 mgIndications:Primary 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 of both knees 16.8 mg IX ONCE 09/26/2024 09/26/2024 Active documented as of this encounter (statuses as of 09/26/2024) Active Problems Problem Noted Date Diagnosed Date Other emphysema 12/13/2023 BMI 26.0-26.9,adult 11/08/2022 Emphysema of lung 07/07/2021 Aortic root dilatation 07/07/2021 Ascending aortic aneurysm 07/07/2021 Nonrheumatic mitral valve regurgitation 07/07/20 CKD (chronic kidney disease), stage II Overview (04/29/2021): EGFR 66.5 Hx pulmonary embolism 07/16/2020 Primary 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 of both knees 08/01/2019 care home current use of 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 0 03/04/2019 Actinic keratosis 12/12/2018 Atherosclerosis of [place] 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[place] heart without angina pectoris 04/19/2018 Abdominal aortic aneurysm without rupture 2015 Homozygous MTHFR mutation K6030O 09/14/2015 Factor V 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 12/30/2013 Overview [...] pulmonary artery 12/23/2013 04/19/2018 Overview (12/25/2013): Admitted [place] Encounter for examination fo r normal comparison [...] Staples MD Sports Medicine Primary Care Orthopaedics [address] [phone] documented in this encounter Nursing Notes * Cornelia Doan LPN - 09/26/2024 10:28 AM EST F/u THIRD of a series Gelsyn injections Pt is unaccompanied today Rashmi Vela LPN documented in this encounter Plan of Treatment Upcoming Encounters Date Type Department Care Team (Late st Contact Info) Description 10/02/2024 11:50 AM EST Office Visit Vascular Surgery, [address] [place] [address] Walt Raphael MD [address] [place] [address] 10/08/2024 9:30 AM EST Office Visit Cardiology [address] [place] [address] Jesus Alberto Montiel PA-C [address] [place] [address] 10/21/2024 10:30 AM EST Office Visit Ophthalmology, [facility] [address] [place] [address] Mau Deleon DO [address] [place] [address] 11/21/2024 8:30 AM EDT Office Visit Orthopaedics [address] [phone] Edwin Staples MD [address] [place] [address] 12/25/2024 8:40 AM EDT Office Visit Family Medicine [address] [phone] Fran Peres MD [address] [place] [address] [place] [address] Scheduled Orders Name Type Priority Associated Diagnoses Orde r Schedule POINT OF CARE US MAJOR JOINT INJECTION, ORTHO Medical Imaging Routine Primary 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 of both knees Ordered: 09/26/2024 Health Maintenance Due Date Last Done Comments DISCUSS TOBACCO CESSATION (REFER TO SMARTSET #8249) 1935 Alpha-1 Antitrypsin 11/23/1955 Depression Screening 04/23/2021 [...] this encounter Medical Devices Implanted Type Area Drafting Clerk Device Identifier Shelf Expiration Date Model / Serial / Lot Graft Aaa Bif [id number] - [id number] - [id number] Implanted:Qty: 1 on 02/13/2015 [place] Clayton [place] [facility] [place] [employer] : VASCULAR 12/02/2016 [id number] / [id number] / Limb Contralat [id number] - [id number] - [id number] Implanted:Qty: 1 on 02/13/2015 by Clayton Lee [place] [facility] [employer] : VASCULAR 11/19/2016 [id number] / [id number] / Limb Contralat [id number] - [id number] - [id number] Implanted:Qty: 1 on 02/13/2015 by Clayton Lee [place] [facility] [place] [employer] : VASCULAR [id number] / [id number] / Plug Vasc Ampl 16mm 9-Plug-016 - [id number] Implanted:Qty: 1 on 02/13/2015 by Clayton Lee MD [place] [facility] Aorta [facility] 9-PLUG-0 16 / / documented as of this encounter Visit Diagnoses Diagnosis Primary 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 of both knees- Primary Primary localized osteoarthrosis, lower leg documented in this encounter Advance Directives * [...] and were consensually agreed upon. Care Teams Hand Tool Lapper Relationship Specialty Start Date End Date Fran Peres MD [address] [place] [address] [place] [phone] PCP - General Family Medicine 12/13/23 documented as of this encounter
--- OUTSIDE RECORDS SUMMARY | 2024-12-03 16:53 | External Medical Summary | Summary of Care ---
Author Name Unknown Organization [facility] Address [address] [place] [address] Phone [phone] Care Team Providers Care Post Tensioning Ironworker Name Role Phone Fran Peres MD Primary Care Provide r Reason for Referral * Precert (Within 10 days (routine)) - Authorized Specialty Diagnoses / Procedures Referred By Jody wright Referred To Contact Radiology Diagnoses Abdominal aortic aneurysm (AAA) without rupture, unspecified part (HCC) Status post endovascular aneurysm repair (EVAR) Procedures CTA ABD/PELVIS Rohit Diamond CRNP [address] [place] [address] Phone: tel: fax: Referral ID Status Reason Start Date Expiration Date V isits Requested Visits Authorized [id number] Authorized 10/07/2024 999 999 Reason for Visit * Reason Comments AAA Encounter Details Date Type Department Care Team (Latest Contact Info) Description 09/30/2024 3:00 PM EST Telemedicine Vascular Surg [facility] [address] [place], [place] [id number] Rohit Diamond CRNP [address] [place] [address] Abdominal aortic aneurysm (AAA) without rupture, unspecified part (HCC)*; Status post endovascular aneurysm repair (EVAR); correction current use of 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; GENERAL OSTEOARTHROSIS; Mixed dyslipidemia; 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); 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 200 Tablet 1 4 12:23 PM EST 04/05/20 24 Active Rosuvastatin Calcium 40 MG Oral Tablet [...] Release 24 Hour (toPROL XL)Indications:At herosclerosis of [place] coronary artery of [place] heart without angina pectoris TAKE 1 TABLET [...] mouth in the morning. 90 Tablet 1 4 5:54 PM EST 07/30/20 24 Active Loratadine 10 MG Oral Tablet (Claritin)Indicat ions:Tinnitus of both ears Take 1 Tablet by mouth in the morning. 30 Tablet 09/12/19 25 Active busPIRone HCl 10 MG Oral Tablet (Buspar)Indicatio ns:PURVI (generalized anxiety disorder) Take 1 Tablet by mouth in the morning and 1 Tablet before bedtime. 60 Tablet 09/12/19 25 025 Discontin ued(Refil l) [...] 07/16/2020 Primary 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 of both knees 08/01/2019 correction current use of 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 0 03/04/2019 Actinic keratosis 12/12/2018 Atherosclerosis of [place] 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[place] heart without angina pectoris 04/19/2018 Abdominal aortic aneurysm without rupture 2015 Homozygous MTHFR mutation H8165H 09/14/2015 Factor V 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 12/30/2013 Overview [...] of this encounter Progress Notes * Rohit Diamond CRNP - 09/30/2024 2:11 PM EST 10/10/2024 ADDENDUM: 10/09/2024 CTA Abd/Pel - Postsurgical changes from prior infrarenal abdominal aorto bi-iliac EVAR with persistent 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 Telephone call to Mr. Powers and his reviewing CTA results and plan to arrange return clinic visit at [facility] for further evaluation and discussion of treatment options. Understanding and agreement voiced. As per patient preference, connection with the [...] Roni Kenyon MD Chief Complaint: Surveillance of 2014 EVAR. Spoke through Mr. Powers's has Jeff his [place] hearing. Reports no interval changes in overall [...] at that time and subsequently removed at [facility] 01/27/2014. 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 [facility] Internal hemorrhoids 07/24/2007 Macular degeneration (senile) of retina 06/26/2014 Nonexudative age-related macular degeneration, bilateral, intermediate dry stage Other seborrheic keratosis 06/17/2002 [place]-surgical removal under local anesthesia Saddle embolus of pulmonary artery (HCC) 12/23/2013 Admitted [facility] Tobacco use disorder Vitamin D deficiency 11/25/2009 [...] ENDOVASC ABDO REPR W/BI DEVICE 02/13/2015 [facility] ENDOVASC ABDO REPR W/BI DEVICE N/A 02/13/2015 Repair of aorta and iliac aneurysms with Medtronic Endurant device (Main body: [id number], Right iliac limb extension: 95-71-34, Left iliac limb 19-47-399) by Dr. Lee. FEM/POP ARTERY REVASC W/ STENT+ANGIOPLASTY Left 09/22/2015 FEM/POP ARTERY REVASC W/ STENT+ANGIOPLASTY performed by Clayton Lee MD [place] [facility] INJECTION OF EYE DRUG Right 07/05/2017 # [...] Left 10/19/2017 # 3 Eylea OS; Dr. Cessna INJECTION OF EYE DRUG Left 12/27/2017 #4 [...] DRUG Right 11/14/2019 # 12 Eylea OD, Dr.Cessna GALDAMEZ OF EYE DRUG Left 11/14/2019 # 11 [...] at [place] [facility] IR EMBOLIZATION ARTERIAL NON HEMMORHAGE Right 02/13/2015 right iliac IR EMBOLIZATION ARTERIAL NON HEMMORHAGE Right 02/13/2015 Embolization of right internal iliac artery with 16 mm Amplatzer Vascular Plug by Dr. Lee. IR FILTER REMOVAL VENA CAVA 01/27/2014 IR PLACEMENT IVC FILTER 12/23/2013 [facility] LIGATION/BIOPSY OF TEMPORAL ARTERY Bilateral 09/28/2018 no vasculitis seen MISCELLANEOUS ORDER ([facility] ONLY) Bilateral 07/05/17-07/05/18 EYLEA OU CONSENT SIGNED, Dr. Adrienne MICHELLE ORDER ([facility] ONLY) Bilateral 07/17/2018-07/17/2019 EYLEA CONSENT OU SIGNED; DR ADRIENNE MICHELLE ORDER ([facility] ONLY) Bilateral 07/25/2019-07/25/2020 EYLEA CONSENT OU SIGNED; DR ADRIENNE MICHELLE ORDER ([facility] ONLY) ACT 112 signed, 11/14/2019 [...] at [place] [facility] [place] AAA SCREEN, VASCULAR LAB N/A 10/05/2016 [...] DIAGNOSTIC STUDIES: Date: 09/26/2024; [facility] Modality: duplex; AAA measures 3.6 x 4.7 [...] measuring 3.5cm. Date: 08/17/2021; [facility]; Modality: duplex; AAA measures 3.5 cm in [...] EIA 60. Date: 09/07/2015; Location of Study: [facility]; Modality: CT; AAA measures 3.2 cm in greatest transverse dimension. R DONIS 3.4 cm and L DONIS 2.9 cm. No evidence of endoleak. New nonocclusive intraluminal thrombus in the left common iliac artery. Date: 03/26/2015; [facility]; Modality: CT; AAA measures 3.2 cm in greatest transverse dimension. R DONIS 3.4 cm, L DONIS 2.6. No endoleak. 02/17/15 RLE art duplex: No pseudoaneurysm or AVF demonstrated. Date: 02/04/2015; Location of Study: [facility]; Modality: CT; AAA measures 3.2 cm in [...] for CTA abd/pel to be completed at [facility] within the next 1-2 weeks. Serum creatinine also ordered to be completed at nearest [facility] facility a few days prior to CTA. Will reviewonce imaging is available and call Mr. Powers and his with the results and formulate future plan. Daylin Madrid CRNP Section of Vascular [place] [address] [phone] documented in this encounter Plan of Treatment Upcoming Encounters Date Type Department Care Team (Late st Contact Info) Description 10/21/2024 10:30 AM EST Office Visit Ophthalmology, [facility] [address] [place] [address] Mau Deleon, [address] [place] [address] 11/21/2024 8:30 AM EDT Office Visit Orthopaedics [address] [place] [phone] Edwin Staples MD [address] [place] [phone] 12/25/2024 8:40 AM EDT Office Visit Family Medicine [address] [place] [phone] Fran Peres MD [address] [place] [address] [place] [address] 08/12/2025 9:30 AM EST Office Visit Cardiology [address] [place] [address] Jesus Alberto Montiel PA-C [address] [place] [address] Health Maintenance Due Date Last Done Comments DISCUSS TOBACCO CESSATION (REFER TO SMARTSET #3521) 1935 Alpha-1 Antitrypsin 11/23/1953 Depression Screening 04/23/2021 [...] this encounter Medical Devices Implanted Type Area Sales Representative Facility Services Device Identifier Shelf Expiration Date Model / Serial / Lot Graft Aaa Bif [id number] - [id number] - [id number] Implanted:Qty: 1 on 02/13/2015 by Clayton Lee MD [place] [facility] Aorta [employer] : VASCULAR 12/02/2016 [id number] / [id number] / Limb Contralat [id number] - [id number] - [id number] Implanted:Qty: 1 on 02/13/2015 by Clayton Lee MD [place] [facility] Aorta [employer] : VASCULAR 11/19/2016 [id number] / [id number] / Limb Contralat [id number] - [id number] - [id number] Implanted:Qty: 1 on 02/13/2015 by Clayton Lee MD [place] [facility] Aorta [employer] : VASCULAR [id number] / [id number] / Plug Vasc Ampl 16mm 9-Plug-016 - [id number] Implanted:Qty: 1 on 02/13/2015 by Clayton Lee MD [place] [facility] Aorta [employer] MEDICAL TREVON 9-PLUG-0 16 / / documented as of this encounter Results * CTA ABD/PELVIS (10/09/2024 11:19 AM EST) Anatomical Region Laterality Modality Abdomen, Pelvis, Body Computed T omography 10/09/2024 2:27 PM EST Narrative 10/09/2024 2:24 PM EST EXAM: CTA ABDOMEN PELVIS WITH CONTRAST HISTORY: [...] left iliac limb measuring up to 41 mm. Right iliac limb excluded aneurysm is thrombosed. Amplatzer plug occlusion of the right internal iliac artery. Left internal iliac artery is patent. Celiac, SMA and renal arteries are patent. MISCELLANEOUS: No free fluid or free air. MUSCULOSKELETAL: Left femur fixation. Polyarticular degenerative changes. No acute osseous abnormalities. IMPRESSION: Postsurgical changes from prior infrarenal abdominal aorto bi-iliac EVAR with persistent 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 Procedure Note Renato Colmenares MD - 10/09/2024 EXAM: CTA ABDOMEN PELVIS WITH CONTRAST HISTORY: S/P EVAR COMPARISON: CT abdomen from 07/23/2018 TECHNIQUE: CTA abdomen pelvis with intravenous contrast was performed. ReformattedMIP images were obtained and reviewed. CONTRAST: 80 ml intravenously. FINDINGS: LOWER CHEST: Bibasilar atelectasis. Small hiatal hernia. Coronary arteryatherosclerosis. LIVER: Simple appearing hepatic cyst in the left lobe of the liver. GALLBLADDER/BILE DUCTS: Cholelithiasis. PANCREAS: Unremarkable. GI TRACT: Scattered colonic diverticula. No evidence of bowelobstruction. SPLEEN: Unremarkable. LYMPH NODES: No lymphadenopathy. ADRENAL GLANDS: Unremarkable. KIDNEYS/URETERS: Bilateral simple appearing renal cysts. Nohydronephrosis. URINARY BLADDER: Unremarkable. REPRODUCTIVE ORGANS: Prostatomegaly with dystrophic calcification enhancesing nodules. VASCULATURE: Postsurgical changes from prior infrarenal abdominal aortobi-iliac EVAR. Persistent filling of the left common iliac arteryaneurysm distal to the left iliac limb measuring up to 41 mm. Right iliaclimb excluded aneurysm is thrombosed. Amplatzer plug occlusion of the right internal iliac artery. Leftinternal iliac artery is patent. Celiac, SMA and renal arteries are patent. MISCELLANEOUS: No free fluid or free air. MUSCULOSKELETAL: Left femur fixation. Polyarticular degenerative changes.No acute osseous abnormalities. IMPRESSION: Postsurgical changes from prior infrarenal abdominal aorto bi-iliac EVARwith persistent filling of the left common iliac artery aneurysm distal tothe left iliac limb with aneurysmal degeneration now measuring up to 41mm, previously measuring up to [address] Rohit NAVA [address] Final Resu lt * CREATININE (10/08/2024 10:00 AM EST) CREATININE 1.1 0.6 - 1.2 mg/dL 10/09/2024 12:06 AM EST LABORATORY [facility] EGFR 68 >=60 mL/min 10/09/2024 12:06 AM EST LABORATORY GM Comment:eGFR is calculated b ased on the CKD-EPI 2020 equation. 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 Care Teams Post Tensioning Ironworker Relationship Specialty Start Date End Date Fran Peres MD [address] [place] [address] [place] [address] PCP - General Family Medicine 12/13/23 documented as of this encounter
--- OUTSIDE RECORDS SUMMARY | 2024-12-03 16:53 | External Medical Summary | Summary of Care ---
Author Name Unknown Organization [facility] Address [address] [facility] [place] [address] Phone [phone] Care Team Providers Care Rack Maker Name Role Phone Fran Peres MD Primary Care Provide r Encounter Details Date Type Department Care Team (Late st Contact Info) Description 10/02/2024 Orders Only PATIENT PORTAL DO NOT DELETE THIS DEPT USED BY [place] [id number] Allergies No known active allergiesdocumented as of this encounter (statuses as of 10/02/2024) Medications Cyanocobalamin (VITAMIN B-12) 6000 MCG SUBL [...] ons: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),Homozygous MTHFR mutation H6279W,Hx pulmonary embolism Take 1 Tablet by mouth [...] Release 24 Hour (toPROL XL)Indications:At herosclerosis of [place] coronary artery of [place] heart without angina pectoris TAKE 1 TABLET [...] as of this encounter (statuses as of 10/02/2024) Active Problems Problem Noted Date Diagnosed Date [...] 0 03/04/2019 Actinic keratosis 12/12/2018 Atherosclerosis of [place] 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[place] heart without angina pectoris 04/19/2018 Abdominal aortic aneurysm without rupture 2015 Homozygous MTHFR mutation M5845C 09/14/2015 Factor V 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 12/30/2013 Overview (12/30/2013): has one copy of Factor V 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 Mixed dyslipidemia 11/25/2009 GENERAL OSTEOARTHROSIS Tobacco use disorder Exudative age-related macula r degeneration of both eyes with active choroidal neovascularization documented as of this encounter (statuses as of 10/02/2024) Resolved Problems Problem Noted Date Diagnosed Date [...] as of this encounter (statuses as of 10/02/2024) Immunizations Name Administration Dates Next Due COVID-19 [...] 10/08/2024 9:30 AM EST Office Visit Cardiology [address] [place] [address] Jesus Alberto Montiel PA-C [address] [place] [address] 10/09/2024 11:15 AM EST Imaging Radiology [address] [place] [phone] 10/21/2024 10:30 AM EST Office Visit Ophthalmology, [facility] [address] [place] [address] Mau Deleon DO [address] [place] [address] 11/21/2024 8:30 AM EDT Office Visit Orthopaedics [address] [place] [phone] Edwin Staples MD [address] [place] [phone] 12/25/2024 8:40 AM EDT Office Visit Family Medicine [address] [place] [phone] Fran Peres MD [address] [place] [address] [place] [address] Health Maintenance Due Date Last Done Comments DISCUSS TOBACCO CESSATION (REFER TO SMARTSET #8497) 1935 Alpha-1 Antitrypsin 11/23/1953 Depression Screening 04/23/2021 [...] this encounter Medical Devices Implanted Type Area Reconsignment Clerk Device Identifier Shelf Expiration Date Model / Serial / Lot Graft Aaa Bif [id number] - [id number] - [id number] Implanted:Qty: 1 on 02/13/2015 by Clayton Lee MD [place] [facility] Aorta [employer] : VASCULAR 12/02/2016 [id number] / [id number] / Limb Contralat [id number] - [id number] - [id number] Implanted:Qty: 1 on 02/13/2015 by Clayton Lee MD at [place] [facility] Aorta [employer] : VASCULAR 11/19/2016 [id number] / [id number] / Limb Contralat [id number] - [id number] - [id number] Implanted:Qty: 1 on 02/13/2015 by Clayton Lee MD at [place] [facility] Aorta [employer] : VASCULAR [id number] / [id number] / Plug Vasc Ampl 16mm 9-Plug-016 - [id number] Implanted:Qty: 1 on 02/13/2015 by Clayton Lee MD at [place] [facility] Aorta [employer] TREVON 9-PLUG-0 16 / / documented as [...] and were consensually agreed upon. Care Teams Rack Maker Relationship Specialty Start Date End Date Fran Peres MD [address] [place] [address] [place] [address] PCP - General Family Medicine 12/13/23 documented as of this encounter
--- OUTSIDE RECORDS SUMMARY | 2024-12-03 16:54 | External Medical Summary | Summary of Care ---
Author Name Unknown Organization [facility] Address [address] [place] [address] Phone [phone] Care Team Providers Care Pen Tester Name Role Phone Fran Peres MD Primary Care Provide r Reason for Visit * Reason Comments Follow Up B/L knee Knee Pain * Precert (Within 30 days (routine)) - Authorized Specialty Diagnoses / Procedures Referred By Jody t Referred To Contact Orthopedics Diagnoses Bilateral primary 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 of knee Procedures [place] GEL-SYN INJECTION 0.1 MG Edwin Staples MD [address] [place] [address] Phone: tel: fax: Edwin Staples MD [address] [place] [address] Phone: tel: fax: Referral ID Status Reason Start Date Expiration Date V isits Requested Visits Authorized [id number] Authorized Precert 09/29/2023 09/28/[id number] Encounter Details Date Type Department Care Team (Latest Contact Info) Description 09/12/2024 10:30 AM EST Office Visit Orthopaedics [address] [phone] Edwin Staples MD [address] [place] [address] Primary 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 of both knees*; Knee effusion, right; Knee effusion, left; Gout of knee, unspecified cause, unspecified chronicity, unspecified laterality Allergies No known active allergiesdocumented as of this encounter (statuses as of 09/13/2024) Medications Cyanocobalamin (VITAMIN B-12) 6000 MCG SUBL [...] ons: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),Homozygous MTHFR mutation [id number],Hx pulmonary embolism Take 1 Tablet by mouth [...] Release 24 Hour (toPROL XL)Indications:At herosclerosis of [place] coronary artery of [place] heart without angina pectoris TAKE 1 TABLET [...] of both knees 16.8 mg IX ONCE 09/12/2024 09/12/2024 Ended sodium hyaluronate (Gelsyn-3) 16.8 MG/2ML inj 16.8 mgIndications:Primary 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 of both knees 16.8 mg IX ONCE 09/12/2024 09/12/2024 Ended documented as of this encounter (statuses as of 09/13/2024) Active Problems Problem Noted Date Diagnosed Date Other emphysema 12/13/2023 BMI 26.0-26.9,adult 11/08/2022 Emphysema of lung 07/07/2021 Aortic root dilatation 07/07/2021 Ascending aortic aneurysm 07/07/2021 Nonrheumatic mitral valve regurgitation 07/07/20 CKD (chronic kidney disease), stage II Overview (04/29/2021): EGFR 66.5 Hx pulmonary embolism 07/16/2020 Primary 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 of both knees 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 0 03/04/2019 Actinic keratosis 12/12/2018 Atherosclerosis of [place] 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[place] heart without angina pectoris 04/19/2018 Abdominal aortic aneurysm without rupture 2015 Homozygous MTHFR mutation 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 09/14/2015 Factor V 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 12/30/2013 Overview (12/30/2013): has one copy of Factor V 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 Mixed dyslipidemia 11/25/2009 GENERAL OSTEOARTHROSIS Tobacco use disorder Exudative age-related macula r degeneration of both eyes with active choroidal neovascularization documented as of this encounter (statuses as of 09/13/2024) Resolved Problems Problem Noted Date Diagnosed Date [...] as of this encounter (statuses as of 09/13/2024) Immunizations Name Administration Dates Next Due COVID-19 [...] Progress Notes * Edwin Staples MD - 09/12/2024 10:20 AM EST Byron Powers [id number] Byron Powers is a 88 year old male who presents for f/u to [facility] for bilateral knee injury/pain. I saw him originally for this on 06/01/2023 Most recent complete visit 06/27/2024 Patient was accompanied by his Quality: reviewed and agree with Nursing Notes for HPI elements History: History on 06/01/2023 - New patient B/L knee pain with activity Patient notes knees started hurting 4-5 mths ago Last injection steroid Yvonne Gonzalez PA-C 01/20/22 Seen in Rheumatology last steroid injection was 12/18/2020 Patient denies any PT or injury or bracing or surgery . X-rays completed today History on 08/31/2023 He is uncertain how long it lasted but did last less than 3 months. Additional history on 12/21/2023: Viscosupplementation with Gelsyn completed on 10/26/2023 in [place] knees 4-5 weeks of significant benefit, but then the benefit begin to wean off is back to baseline Additional history 01/18/2024 Reports getting about 1 month benefit from the steroid injection performed on 12/21/2023 Currently denying pain however but reports his knees just do not work. Additional history 06/27/2024 f/u B/l knee pain -Pt received THIRD of series of Gelsyn injections on 10/26/23 -steroid injection today?? -Pt unsure which injections he had longer benefit from: gel or steroid injections Since that visit: labs from his knee aspiration which showed monosodium urate crystals indicating gout. I spoke with his regarding this on 07/04/2024. Since that time he has seen his PCP Dr. Larisa MARCOS and is on medications for gout. Reports getting about 2 weeks of significant benefit from previous steroid injections. ROS: ROS per HPI otherwise non-contributory Past Medical History: Diagnosis Date Abdominal aortic ectasia (HCC) 10/30/2014 Anterior epistaxis 12/03/2017 ER Bilateral dry eyes BMI 28.0-28.9,adult CKD (chronic kidney disease), stage II 10/29/2020 EGFR 66.5 Diverticulosis of colon 07/24/2007 minimal sigmoid diverticular disease Encounter for ophthalmic examination and evaluation 10/05/2006 Esophageal reflux Exudative age-related macular degeneration of both eyes with active choroidal neovascularization ([facility]) Exudative age-related macular degeneration of right eye with active choroidal neovascularization ([facility]) Factor V 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 ([facility]) 12/30/2013 has one copy of Factor V 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 Generalized 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 GERD (gastroesophageal reflux disease) Herpes zoster 08/05/2008 left forehead 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 [id number] 09/18/2015 [facility] HTN, goal below 140/90 Iliac artery thrombosis, 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 [facility] Internal hemorrhoids 07/24/2007 Macular degeneration (senile) of retina 06/26/2014 Nonexudative age-related macular degeneration, bilateral, intermediate dry stage Other seborrheic keratosis 06/17/2002 maulik-surgical removal under local anesthesia Saddle embolus of pulmonary artery ([facility]) 12/23/2013 Admitted [facility]a Tobacco use disorder Vitamin D deficiency 11/25/2009 Vitamin D 18.8 Family History Problem Relation Name Age of [...] Last attempt to quit: 04/27/2021 Years since quittin.3 Smokeless tobacco: Never Tobacco comments: 08/31/22 4-5 [...] on file Housing Stability: Not on file Physical Exam Constitutional: generally well-nourished and in no acute distress Psychiatric: Mood and Affect normal Eyes: EOMI Respiratory: normal respiratory effort with regular rate and rhythm Cardiovascular: no edema in the affected extremity (s) Limited bilateral knee evaluation revealed this along the joint lines, no erythema and mild effusions Radiology (I have personally reviewed the following films): 06/01/2023: Three-view x-ray of each knee FINDINGS Right: Tricompartmental 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, greatest and severe in the medial compartment. No evidence of a fracture. Small joint effusion. Vascular calcifications. Left: Tricompartmental 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, greatest and moderate in the medial compartment. There arthritic changes of the proximal tibiofibular joint as well. No evidence of a fracture. Small joint effusion. Vascular calcifications. IMPRESSION IMPRESSION Severe right and moderate left knee 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. Assessment and Plan: 1) chronic bilateral knee pain Secondary to DJD Last injection steroid Yvonne Gonzalez PA-C 01/20/22 Seen in Rheumatology last steroid injection was 12/18/2020 Patient denies any PT or injury or bracing or surgery History of intra-articular steroid injections: I originally performed steroid injections for him bilaterally on 06/01/2023 Additional bilateral intra-articular steroid injections were performed on 12/21/2023 and then with aspiration and ultrasound guidance on 07/04/2024. Reports those most recent injections helped significantly but only for for about 2 weeks. History of viscosupplementation injections: Viscosupplementation with Gelsyn completed on 10/26/2023 in BL knees 4-5 weeks of significant benefit, but then the benefit begin to wean off is back to baseline This series was started again today 09/12/2024 but with ultrasound guidance. In addition knees wereaspirated prior to injecting. Once again discussed options related to knee arthritis that he has not tried including: Physical therapy, referral to pain management for evaluation for RFA, surgical consultation . I also discussed that sometimes his sensation of the knees not working in her giving out can be related to the lumbarspine. Patient does not think it is spine related. Does not want lumbar spine evaluated further. Patient has no interest in surgical consultation or physical therapy. Previously he was open to Pain Management consultation for evaluation for RFA and I placed that referral on 01/18/2024. However, his elected not to actually scheduling go to that visit. For now the plan to follow up with me. 2) gout labs from his knee aspiration which showed monosodium urate crystals indicating gout. I spoke with his regarding this on 07/04/2024. Since that time he has seen his PCP Dr. Larisa MARCOS and is on medications for gout. PROCEDURE NOTE: KNEE ASPIRATION/INJECTION Laterality: Bilateral Time out: Prior to aspiration [...] Ethyl chloride spray for local anesthetic. Knee aspirated at superior-lateral recess using 1.5 inch, 18 gauge needle. 30 mL of straw-colored fluid aspirated on Left and 35 mL of straw-colored fluid aspirated on Right. Knee then injected with Gelsyn. Patient tolerated procedure with no significant bleeding or adverse reaction. Patient instructed to call or return to clinic for fever, warmth, unusual redness at injection sitefor potential infection. Patient also advised regarding post-procedural pain. Edwin Staples MD Sports Medicine Primary Care Orthopaedics [address] [phone] documented in this encounter Nursing Notes * Cornelia Doan LPN - 09/12/2024 10:14 AM EST Fup -b/l knee pain -FIRST of a series gelsyn injections today -Pt accompanied by his today Rashmi Vela KIMBERLYN documented in this encounter Plan of Treatment Upcoming Encounters Date Type Department Care Team (Late st Contact Info) Description 09/19/2024 10:30 AM EST Office Visit Orthopaedics [address] [phone] Edwin Staples MD [address] [place] [address] 09/26/2024 8:30 AM EST Imaging Vascular Lab, [facility] [address] [place] [address] 09/26/2024 10:30 AM EST Office Visit Orthopaedics [address] [place] [address] Edwin Staples MD [address] [place] [address] 10/02/2024 11:50 AM EST Office Visit Vascular Surgery, [facility] [address] [place] [address] Walt Raphael MD [address] [facility] [place], [place] [address] 10/08/2024 9:30 AM EST Office Visit Cardiology [address] [place] [address] Jesus Alberto Montiel PAZeeC [address] [place] [address] 11/07/2024 11:30 AM EST Office Visit Ophthalmology, [facility] [address] [place] [address] Mau Deleon DO [address] [place] [address] 12/25/2024 8:40 AM EDT Office Visit Family Medicine [address] [place] [phone] Fran Peres MD [address] [place] [address] [place] [address] Health Maintenance Due Date Last Done Comments [...] this encounter Medical Devices Implanted Type Area Cessation Systems Outreach Specialist Device Identifier Shelf Expiration Date Model / Serial / Lot Graft Aaa Bif [id number] - [id number] - [id number] Implanted:Qty: 1 on 02/13/2015 by Clayton Lee MD at OR [facility] Aorta [employer] : VASCULAR 12/02/2016 [id number] / [id number] / Limb Contralat [id number] - [id number] - [id number] Implanted:Qty: 1 on 02/13/2015 by Clayton Lee MD at OR [facility] Aorta [employer] : VASCULAR 11/19/2016 [id number] / [id number] / Limb Contralat [id number] - [id number] - [id number] Implanted:Qty: 1 on 02/13/2015 by Clayton Lee MD at OR [facility] [employer] : VASCULAR [id number] / [id number] / Plug Vasc Ampl 16mm [id number] - [id number] Implanted:Qty: 1 on 02/13/2015 by Clayton Lee MD at OR [facility] Aorta [employer] [id number] / / documented as of this encounter Procedures Procedure Name Priority Date/Time Associated Diagnosis Comments POINT OF CARE US MAJOR JOINT INJECTION, ORTHO Routine 09/12/2024 7:32 PM EST Primary 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 of both knees Knee effusion, right Knee effusion, left documented in this encounter Results * POINT OF CARE US MAJOR JOINT INJECTION, ORTHO (09/12/2024 7:32 PM EST) Anatomical Region Laterality Modality Musculoskeletal Radiographic Jacquelyn ging 09/12/2024 7:32 PM EST Narrative 09/13/2024 8:50 AM EST Patient Name: BYRON POWERS : 1935 (88y) Male Performing Provider: Edwin Staples (digitally signed Sep 13, 2024 08:50 EST) Attending: Edwin Staples (digitally signed Sep 13, 2024 08:50 EST) [Impression] : PROCEDURE NOTE: KNEE ASPIRATION/INJECTION Laterality: Bilateral Time out: Prior to aspiration [...] Ethyl chloride spray for local anesthetic. Knee aspirated at superior-lateral recess using 1.5 inch, 18 gauge needle. 30 mL of straw-colored fluid aspirated on Left and 35 mL of straw-colored fluid aspirated on Right. Knee then injected with Gelsyn. Patient tolerated procedure with no significant bleeding or adverse reaction. Procedure Note Edwin Staples MD - 09/13/2024 Patient Name: BYRON POWERS : 1935 (88y) Male Performing Provider: Edwin Staples (digitally signed Sep 13, 2024 08:50EST) Attending: Edwin Staples (digitally signed Sep 13, 2024 08:50 EST) [Impression] : PROCEDURE NOTE: KNEE ASPIRATION/INJECTION Laterality: Bilateral Time out: Prior to aspiration [...] Ethyl chloride spray for local anesthetic. Knee aspirated at superior-lateral recess using 1.5 inch, 18 gauge needle.30 mL of straw-colored fluid aspirated on Left and 35 mL of straw-coloredfluid aspirated on Right. Knee then injected with Gelsyn. Patient tolerated procedure with no significant bleeding or adversereaction. us Edwin Staples MD RAD ULTRASOUND Fin al Result documented in this encounter Visit Diagnoses Diagnosis Primary 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 of both knees- Primary Primary localized osteoarthrosis, lower leg Knee effusion, right Effusion of lower leg joint Knee effusion, left Effusion of lower leg joint Gout of knee, unspecified cause, unspecified chronicity, unspecified laterality documented in this encounter Administered Medications Inactive Administered Medications - up to 3 most recent administrations Medication Order MAR Action Action Date Dose Rate Site sodium hyaluronate (Gelsyn-3) 16.8 MG/2ML inj 16.8 mg 16.8 mg, Intra-Articular, ONCE, On Faviola 09/12/24 at 1115, For 1 doseIndications:Primary 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 of both knees Given 09/12/2024 3:13 PM EST 16.8 mg Knee Right sodium hyaluronate (Gelsyn-3) 16.8 MG/2ML inj 16.8 mg 16.8 mg, Intra-Articular, ONCE, On Faviola 09/12/24 at 1115, For 1 doseIndications:Primary 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 of both knees Given 09/12/2024 3:13 PM EST 16.8 mg Knee Left documented in [...] and were consensually agreed upon. Care Teams Pen Tester Relationship Specialty Start Date End Date Fran Peres MD [address] [place] [address] [place] [address] PCP - General Family Medicine 12/13/23 documented as of this encounter
--- OUTSIDE RECORDS SUMMARY | 2024-12-03 16:54 | External Medical Summary | Summary of Care ---
Author Name Unknown Organization [facility] Address [address] [address] [address] Phone [phone] Care Team Providers Care Boiler Mechanic Name Role Phone Fran Peres MD Primary Care Provide r Reason for Visit * Reason Comments Acute Encounter Details Date Type Department Care Team (Late st Contact Info) Description 09/12/2024 9:40 AM EST Office Visit Family Medicine [address] [place] [phone] Roni Kenyon MD [address] [place] [address] [place] [address] Tinnitus of both ears*; PURVI (generalized anxiety disorder) Allergies No known active allergiesdocumented as of this encounter (statuses as of 09/12/2024) Medications Cyanocobalamin (VITAMIN B-12) 6000 MCG SUBL [...] Solution (Duoneb)Indicatio ns:COPD, 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 determined ([facility]) Inhale 3 mL by mouth every 6 [...] ons: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),Homozygous MTHFR mutation [id number],Hx pulmonary embolism Take 1 Tablet by mouth [...] Release 24 Hour (toPROL XL)Indications: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 TAKE 1 TABLET [...] as of this encounter (statuses as of 09/12/2024) Active Problems Problem Noted Date Diagnosed Date Other emphysema 12/13/2023 BMI 26.0-26.9,adult 11/08/2022 Emphysema of lung 07/07/2021 Aortic root dilatation 07/07/2021 Ascending aortic aneurysm 07/07/2021 Nonrheumatic mitral valve regurgitation 07/07/20 21 CKD (chronic kidney disease), stage II 1 Overview (04/29/2021): EGFR 66.5 Hx pulmonary embolism 07/16/2020 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 of both 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 0 03/04/2019 Actinic keratosis 12/12/2018 Atherosclerosis of [place] 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[place] heart without angina pectoris 04/19/2018 Abdominal aortic aneurysm without rupture 2015 Homozygous MTHFR mutation [id number] 09/14/2015 Factor V 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 12/30/2013 Overview (12/30/2013): has one copy of Factor V 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 Mixed dyslipidemia 11/25/2009 GENERAL OSTEOARTHROSIS Tobacco use disorder Exudative age-related macula r degeneration of both eyes with active choroidal neovascularization documented as of this encounter (statuses as of 09/12/2024) Resolved Problems Problem Noted Date Diagnosed Date [...] as of this encounter (statuses as of 09/12/2024) Immunizations Name Administration Dates Next Due COVID-19 [...] Sign Reading Time Taken Comments Blood Pressure 106/70 09/12/2024 9:30 AM EST Pulse 89 09/12/2024 9:30 AM EST Temperature 35.6 C (96 F) 09/12/2024 9:30 AM EST Respiratory Rate - - Oxygen Saturation 93% 09/12/2024 9:30 AM EST Inhaled Oxygen Concentration - - Weight 109.1 kg (240 lb 8 oz) 09/12/2024 9:30 AM EST Height - - Body Mass Index 27.79 10/12/2023 9:39 AM EST documented in this encounter Progress Notes * Roni Kenyon MD - 09/12/2024 9:39 AM EST does the talking. Jeff has ringing in his ears. She says he is obsessing over things, getting anxious. I had him on effexor she says, and he is on Zoloft now. He needs his knees injected today, has appt with Dr Staples for that. 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 [id number] 09/18/2015 [facility] HTN, goal below 140/90 Iliac artery thrombosis, 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 [facility] Internal hemorrhoids 07/24/2007 Macular degeneration (senile) of retina 06/26/2014 Nonexudative age-related macular degeneration, bilateral, intermediate dry stage Other seborrheic keratosis 06/17/2002 maulik-surgical removal under local anesthesia Saddle embolus of pulmonary artery (HCC) 12/23/2013 Admitted [place] Tobacco use disorder Vitamin D deficiency 11/25/2009 [...] ABDO REPR W/BI DEVICE 02/13/2015 [facility] ENDOVASC ABDO REPR W/BI DEVICE N/A 02/13/2015 Repair of aorta and iliac aneurysms with Medtronic Endurant device (Main body: , Right iliac limb extension: , Left iliac limb ) by Dr. Lee. FEM/POP ARTERY REVASC W/ STENT+ANGIOPLASTY Left 09/22/2015 FEM/POP ARTERY REVASC W/ STENT+ANGIOPLASTY performed by Clayton Lee MD at OR [facility] INJECTION OF EYE DRUG Right 07/05/2017 # [...] Clayton Lee MD at OR [facility] IR EMBOLIZATION ARTERIAL NON HEMMORHAGE Right 02/13/2015 right iliac IR EMBOLIZATION ARTERIAL NON HEMMORHAGE Right 02/13/2015 Embolization of right internal iliac artery with 16 mm Amplatzer Vascular Plug by Dr. Lee. IR FILTER REMOVAL VENA CAVA 01/27/2014 IR PLACEMENT IVC FILTER 12/23/2013 [facility] LIGATION/BIOPSY OF TEMPORAL [...] performed by Clayton Lee MD at OR [facility] AAA SCREEN, VASCULAR LAB N/A 10/05/2016 endograft [...] 09/22/1998 arthritis and calcaneal spurring left ankle Review of patient's allergies indicates: No Known Allergies Social History Socioeconomic History Marital status: Spouse [...] on file Housing Stability: Not on file Current Outpatient Medications Medication Sig Dispense Refill [...] mouth in the morning. 90 Tablet 1 predniSONE 20 MG Oral Tablet (Deltasone) One daily 10 Tablet 0 Loratadine 10 MG Oral Tablet (Claritin) Take [...] Injection PRN 1.5 mg at 09/05/24 1024 O: Blood pressure 106/70, pulse 89, temperature 96 F (35.6 C), weight 240 lb 8 oz (109.1 kg), SpO2 93%. His canals are clear of wax, and TMs look normal to me. No adenopathy A: Tinnitus of both ears (Primary) - predniSONE 20 MG Oral Tablet (Deltasone); One daily - Loratadine 10 MG Oral Tablet (Claritin); Take 1 Tablet by mouth in the morning. PURVI (generalized anxiety disorder) - busPIRone HCl 10 MG Oral Tablet (Buspar); Take 1 Tablet by mouth in the morning and 1 Tablet before bedtime. Follow Up: Return if symptoms worsen or fail to improve. documented in this encounter Nursing Notes * Maria Fernanda Kulkarni CMA - 09/12/2024 9:28 AM EST He is here for ringing in his ears. He has had it a long time but its more bothersome now. documented in this encounter Plan of Treatment Upcoming Encounters Date Type Department Care Team (Late st Contact Info) Description 09/12/2024 10:30 AM EST Office Visit Orthopaedics [address] [phone] Edwin Staples MD [address] [place] [address] Arrived 09/19/2024 10:30 AM EST Office Visit Orthopaedics [address] [place] [phone] Edwin Staples MD [address] [place] [address] 09/26/2024 8:30 AM EST Imaging Vascular Lab, [facility] 2nd [facility] [address] [place] [address] 09/26/2024 10:30 AM EST Office Visit Orthopaedics [address] [phone] Edwin Staples MD [address] [place] [address] 10/02/2024 11:50 AM EST Office Visit Vascular Surgery, [facility] [address] [place] [address] Walt Raphael MD [address] [place] [address] 10/08/2024 9:30 AM EST Office Visit Cardiology [address] [place] [address] Jesus Alberto Montiel, PAZeeC [address] [place] [address] 11/07/2024 11:30 AM EST Office Visit Ophthalmology, [facility] [address] [place] [address] Mau Deleon, [address] [place] [address] 12/25/2024 8:40 AM EDT Office Visit Family Medicine [address] [phone] Fran Peres MD [address] [place] [address] [place] [address] Health Maintenance Due Date Last Done Comments DISCUSS TOBACCO CESSATION (REFER TO SMARTSET #4790) 1935 Alpha-1 Antitrypsin 11/23/1955 Depression Screening 04/23/2021 [...] this encounter Medical Devices Implanted Type Area Sofa Cover Inspector Device Identifier Shelf Expiration Date Model / Serial / Lot Graft Aaa Bif [id number] - [id number] - [id number] Implanted:Qty: 1 on 02/13/2015 by Clayton Lee MD at OR [facility] Aorta MEDTRONIC : VASCULAR 12/02/2016 [id number] / [id number] / Limb Contralat [id number] - [id number] - [id number] Implanted:Qty: 1 on 02/13/2015 by Clayton Lee MD at OR [facility] Aorta [employer] : VASCULAR 11/19/2016 [id number] / [id number] / Limb Contralat [id number] - [id number] - [id number] Implanted:Qty: 1 on 02/13/2015 by Clayton Lee MD at OR [facility] Aorta [employer] : VASCULAR [id number] / [id number] / Plug Vasc Ampl 16mm 9-Plug-016 - [id number] Implanted:Qty: 1 on 02/13/2015 by Clayton Lee MD at OR [facility] Aorta Neuralieve MEDICAL TREVON 9-PLUG-0 16 / / documented as of this encounter Visit Diagnoses Diagnosis Tinnitus of both ears- Primary Unspecified tinnitus PURVI (generalized anxiety disorder) Generalized anxiety disorder documented in this encounter Advance Directives * [...] and were consensually agreed upon. Care Teams Boiler Mechanic Relationship Specialty Start Date End Date Fran Peres MD [address] [place] [address] [place] [address] PCP - General Family Medicine 12/13/23 documented as of this encounter
--- OUTSIDE RECORDS SUMMARY | 2024-12-03 16:54 | External Medical Summary | Summary of Care ---
Author Name Unknown Organization [facility] Address [address] [facility] [place] [address] Phone [phone] Care Team Providers Care Humanities Division Chair Name Role Phone Fran Peres MD Primary Care Provide r Reason for Visit * Reason Comments Pain * Precert (Within 30 days (routine)) - Authorized Specialty Diagnoses / Procedures Referred By Jody t Referred To Contact Orthopedics Diagnoses Bilateral primary 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 of knee Procedures [place] GEL-SYN INJECTION 0.1 MG Edwin Staples MD [address] [place] [address] Phone: tel: fax: Edwin Staples MD [address] [place] [address] Phone: tel: fax: Referral ID Status Reason Start Date Expiration Date V isits Requested Visits Authorized [id number] Authorized Precert 09/29/2023 09/28/[phone] Encounter Details Date Type Department Care Team (Latest Contact Info) Description 09/19/2024 10:30 AM EST Office Visit Orthopaedics [address] [phone] Edwin Staples MD [address] [place] [address] Primary 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 of both knees* Allergies No known active allergiesdocumented as of this encounter (statuses as of 09/19/2024) Medications Cyanocobalamin (VITAMIN B-12) 6000 MCG SUBL [...] ons: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),Homozygous MTHFR mutation K8473S,Hx pulmonary embolism Take 1 Tablet by mouth [...] Release 24 Hour (toPROL XL)Indications:At herosclerosis of [place] coronary artery of [place] heart without angina pectoris TAKE 1 TABLET [...] as of this encounter (statuses as of 09/19/2024) Active Problems Problem Noted Date Diagnosed Date [...] 0 03/04/2019 Actinic keratosis 12/12/2018 Atherosclerosis of [place] 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[place] heart without angina pectoris 04/19/2018 Abdominal aortic aneurysm without rupture 2015 Homozygous MTHFR mutation H4328S 09/14/2015 Factor V 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 12/30/2013 Overview (12/30/2013): has one copy of Factor V 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 Mixed dyslipidemia 11/25/2009 GENERAL OSTEOARTHROSIS Tobacco use disorder Exudative age-related macula r degeneration of both eyes with active choroidal neovascularization documented as of this encounter (statuses as of 09/19/2024) Resolved Problems Problem Noted Date Diagnosed Date [...] pulmonary artery 12/23/2013 04/19/2018 Overview (12/25/2013): Admitted [place] Encounter for examination fo r normal comparison [...] as of this encounter (statuses as of 09/19/2024) Immunizations Name Administration Dates Next Due COVID-19 [...] Staples MD Sports Medicine Primary Care Orthopaedics [address] [phone] documented in this encounter Nursing Notes * Cornelia Doan LPN - 09/19/2024 10:27 AM EST Fup SECOND of a series Gelsyn injections Pt is unaccompanied today Rashmi Vela LPN documented in this encounter Plan of Treatment Upcoming Encounters Date Type Department Care Team (Late st Contact Info) Description 09/19/2024 11:00 AM EST Imaging Radiology [place] [address] [place] [address] Arrived 09/26/2024 8:30 AM EST Imaging Vascular Lab, [facility] 2nd [facility] [address] [place] [address] 09/26/2024 10:30 AM EST Office Visit Orthopaedics [address] [phone] Edwin Staples MD [address] [place] [address] 10/02/2024 11:50 AM EST Office Visit Vascular Surgery, [facility] [place] [address] Walt Raphael MD [address] [place] [address] 10/08/2024 9:30 AM EST Office Visit Cardiology [address] [place] [address] Jesus Alberto Montiel PA-C [address] [place] [address] 10/21/2024 10:30 AM EST Office Visit Ophthalmology, [facility] [address] [place] [address] Mau Deleon DO [address] [place] [address] 12/25/2024 8:40 AM EDT Office Visit Family Medicine [address] [phone] Fran Peres MD [address] [place] [address] [place] [address] Scheduled Orders Name Type Priority Associated Diagnoses Orde r Schedule POINT OF CARE US MAJOR JOINT INJECTION, ORTHO Medical Imaging Routine Primary 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 of both knees Ordered: 09/19/2024 Health Maintenance Due Date Last Done Comments DISCUSS TOBACCO CESSATION (REFER TO SMARTSET #2365) 1935 Alpha-1 Antitrypsin 11/23/1955 Depression Screening 04/23/2021 [...] this encounter Medical Devices Implanted Type Area Gathering Machine Setter Device Identifier Shelf Expiration Date Model / Serial / Lot Graft Aaa Bif [id number] - [id number] - [id number] Implanted:Qty: 1 on 02/13/2015 by Clayton Lee [place] [facility] Aorta MEDTRON[employer] : VASCULAR 12/02/2016 [id number] / [id number] / Limb Contralat [id number] - [id number] - [id number] Implanted:Qty: 1 on 02/13/2015 by Clayton Lee MD [place] [facility] Aorta [employer] : VASCULAR 11/19/2016 [id number] / [id number] / Limb Contralat [id number] - [id number] - [id number] Implanted:Qty: 1 on 02/13/2015 by Clayton Lee MD [place] [facility] Aorta [employer] : VASCULAR [id number] / [id number] / Plug Vasc Ampl 16mm 9-Plug-016 - [id number] Implanted:Qty: 1 on 02/13/2015 by Clayton Lee MD [place] [facility] Aorta Talkable TREVON 9-PLUG-0 16 / / documented as [...] and were consensually agreed upon. Care Teams Humanities Division Chair Relationship Specialty Start Date End Date Fran Peres MD [address] [place] [address] [place] [address] PCP - General Family Medicine 12/13/23 documented as of this encounter
--- OUTSIDE RECORDS SUMMARY | 2024-12-03 16:54 | External Medical Summary ---
Author Name Unknown Address Unknown Organization K01:LABORATORY [facility] [place] - [address] [place] [address] [place] [id number] Laboratory Report Ordering Provider Test Date Status LIS POND 09/12/2024 09:45:14 Final Observation Date Value Abnormality Reference (Units ) Status BUN 09/12/2024 09:45:14 15 6-20 (mg/dL) Final Creatinine 09/12/2024 09:45:14 1.1 0.6-1.2 (mg/dL) Final Glomerular filtration rate/1.73 sq M.predicted [Volume Rate/Area] in Serum, Plasma or Blood by Creatinine-based formula (CKD-EPI) 09/12/2024 09:45:14 69 >=60 (mL/min) Final eGFR is calculated based on the CKD-EPI 2020 equation. Sodium 09/12/2024 09:45:14 142 135-146 (m mol/L) Final Potassium 09/12/2024 09:45:14 4.3 3.5-5.1 (m mol/L) Final Cl 09/12/2024 09:45:14 103 98-107 (mm ol/L) Final CO2 09/12/2024 09:45:14 27 22-32 (mmo l/L) Final Anion gap 09/12/2024 09:45:14 12 7-15 (mmol /L) Final Glucose 09/12/2024 09:45:14 109 70-120 (mg /dL) Final Calcium 09/12/2024 09:45:14 9.8 8.4-10.2 ( mg/dL) Final Performing Location LABORATORY [facility] - [address] [facility] [place] [id number]
--- OUTSIDE RECORDS SUMMARY | 2024-12-03 16:54 | External Medical Summary | Summary of Care ---
Author Name Unknown Organization [facility] Address [address] [place] [address] Phone [phone] Care Team Providers Care Community Outreach Director Name Role Phone Fran Peres MD Primary Care Provide r Reason for Visit * Reason Comments Follow Up B/L knee Knee Pain * Precert (Within 30 days (routine)) - Authorized Specialty Diagnoses / Procedures Referred By Jody t Referred To Contact Orthopedics Diagnoses Bilateral primary 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 of knee Procedures [place] GEL-SYN INJECTION 0.1 MG Edwin Staples MD [address] [place] [address] Phone: tel: fax: Edwin Staples MD [address] [place] [address] Phone: tel: fax: Referral ID Status Reason Start Date Expiration Date V isits Requested Visits Authorized [id number] Authorized Precert 09/29/2023 09/28/[phone] Encounter Details Date Type Department Care Team (Latest Contact Info) Description 09/12/2024 10:30 AM EST Office Visit Orthopaedics [address] [phone] Edwin Staples MD [address] [place] [address] Primary 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 of both knees*; Knee effusion, [...] ons: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),Homozygous MTHFR mutation G0448I,Hx pulmonary embolism Take 1 Tablet by mouth [...] Release 24 Hour (toPROL XL)Indications:At herosclerosis of [place] coronary artery of [place] heart without angina pectoris TAKE 1 TABLET [...] 07/16/2020 Primary 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 of both knees 08/01/2019 rn long term care current use of 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 0 03/04/2019 Actinic keratosis 12/12/2018 Atherosclerosis of [place] 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[place] heart without angina pectoris 04/19/2018 Abdominal aortic aneurysm without rupture 2015 Homozygous MTHFR mutation U7580N 09/14/2015 Factor V 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 12/30/2013 Overview [...] Staples MD - 09/12/2024 10:20 AM EST Jeff Powers [id number] Jeff Powers is a 88 year old male who presents for f/u to [facility] for bilateral knee [...] of both eyes with active choroidal neovascularization ([facility]) Exudative age-related macular degeneration of right eye with active choroidal neovascularization ([facility]) Factor V 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 ([facility]) 12/30/2013 has one copy of Factor V 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 Generalized 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 GERD (gastroesophageal reflux disease) Herpes zoster 08/05/2008 left forehead 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 C5330A 09/18/2015 [facility] HTN, goal below 140/90 Iliac artery thrombosis, 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 [facility] Internal hemorrhoids 07/24/2007 Macular degeneration (senile) of retina 06/26/2014 Nonexudative age-related macular degeneration, bilateral, intermediate dry stage Other seborrheic keratosis 06/17/2002 maulik-surgical removal under local anesthesia Saddle embolus of pulmonary artery ([facility]) 12/23/2013 Admitted [place] Tobacco use disorder Vitamin [...] Staples MD Sports Medicine Primary Care Orthopaedics [address] [phone] documented in this encounter Nursing Notes * Cornelia Doan LPN - 09/12/2024 10:14 AM EST Fup -b/l knee pain -FIRST of a series gelsyn injections today -Pt accompanied by his today Rashmi Vela KIMBERLYN documented in this encounter Plan of Treatment Upcoming Encounters Date Type Department Care Team (Late st Contact Info) Description 09/19/2024 10:30 AM EST Office Visit Orthopaedics [address] [phone] Edwin Staples MD [address] [place] [address] 09/26/2024 8:30 AM EST Imaging Vascular Lab, [facility] 2nd [facility] [address] [place] [address] 09/26/2024 10:30 AM EST Office Visit Orthopaedics [address] [place] [address] Edwin Staples MD [address] [place] [address] 10/02/2024 11:50 AM EST Office Visit Vascular Surgery, [facility] [address] [place] [address] Walt Raphael MD [address] [facility] [place], [place] [address] 10/08/2024 9:30 AM EST Office Visit Cardiology [address] [place] [address] Jesus Alberto Montiel PAZeeC [address] [place] [address] 11/07/2024 11:30 AM EST Office Visit Ophthalmology, [facility] [address] [place] [address] Mau Deleon DO [address] [place] [address] 12/25/2024 8:40 AM EDT Office Visit Family Medicine [address] [place] [phone] Fran Peres MD [address] [place] [address] [place] [address] Scheduled Orders Name Type Priority Associated Diagnoses Orde r Schedule POINT OF CARE US MAJOR JOINT INJECTION, ORTHO Medical Imaging Routine Primary 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 of both knees Knee effusion, right Knee effusion, left Ordered: 09/12/2024 Health Maintenance Due Date Last Done Comments [...] this encounter Medical Devices Implanted Type Area Visual Training Aide Device Identifier Shelf Expiration Date Model / Serial / Lot Graft Aaa Bif [id number] - [id number] - [id number] Implanted:Qty: 1 on 02/13/2015 by Clayton Lee MD at [place] [facility] [place] Aorta MED[employer] : VASCULAR 12/02/2016 [id number] / [id number] / Limb Contralat [id number] - [id number] - [id number] Implanted:Qty: 1 on 02/13/2015 by Clayton Lee MD at [place] [facility] [place] Aorta [employer] : VASCULAR 11/19/2016 [id number] / [id number] / Limb Contralat [id number] - [id number] - [id number] Implanted:Qty: 1 on 02/13/2015 by Clayton Lee MD at [place] [facility] [place] Aorta MED[employer] : VASCULAR [id number] / [id number] / Plug Vasc Ampl 16mm 9-Plug-016 - [id number] Implanted:Qty: 1 on 02/13/2015 by Clayton Lee MD at [place] [facility] [place] Aorta [employer] TREVON 9-PLUG-0 16 / / documented as [...] and were consensually agreed upon. Care Teams Community Outreach Director Relationship Specialty Start Date End Date Fran Peres MD [address] [place] [address] [place] [phone] PCP - General Family Medicine 12/13/23 documented as of this encounter
--- OUTSIDE RECORDS SUMMARY | 2024-12-03 16:54 | External Medical Summary | Summary of Care ---
Author Name Unknown Organization [facility] Address [address] [facility] [place] [address] Phone [phone] Care Team Providers Care Floor Helper Name Role Phone Fran Peres MD Primary Care Provide r Reason for Visit * Reason Onset Date Comments Appointment 09/13/2024 Encounter Details Date Type Department Care Team (Late st Contact Info) Description 09/13/2024 Telephone Ophthalmology, [facility] [address] [place] [address] Mau Deleon DO [address] [place] [address] Appointment Allergies No known active allergiesdocumented as [...] ons: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),Homozygous MTHFR mutation U2629B,Hx pulmonary embolism Take 1 Tablet by mouth [...] Release 24 Hour (toPROL XL)Indications:At herosclerosis of [place] coronary artery of [place] heart without angina pectoris TAKE 1 TABLET [...] Primary 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 of both knees 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 Moved pt's 11/07/24 appt up so it is closer to the "30 days" to fill out the form. Explained to that pt's vision will need checked with and without glasses for the [employer] form and that I also havethe form here at the office, just need pt's visual acuity filled out. LUANNE Lemus 09/13/2024 11:24 AM documented in this encounter Plan of Treatment Upcoming Encounters Date Type Department Care Team (Late st Contact Info) Description 09/19/2024 10:30 AM EST Office Visit Orthopaedics [address] [phone] Edwin Staples MD [address] [place] [address] 09/26/2024 8:30 AM EST Imaging Vascular Lab, [facility] 2nd [facility] [address] [place] [address] 09/26/2024 10:30 AM EST Office Visit Orthopaedics [address] [phone] Edwin Staples MD [address] [place] [address] 10/02/2024 11:50 AM EST Office Visit Vascular Surgery, [facility] [address] [place] [address] Walt Raphael MD [address] [facility] [place] [address] 10/08/2024 9:30 AM EST Office Visit Cardiology [address] [place] [address] Jesus Alberto Montiel PAZeeC [address] [place] [address] 10/21/2024 10:30 AM EST Office Visit Ophthalmology, [facility] [address] [place] [address] Mau Deleon DO [address] [place] [address] 12/25/2024 8:40 AM EDT Office Visit Family Medicine [address] [phone] Fran Peres MD [address] [place] [address] [place] [address] Health Maintenance Due Date Last Done Comments DISCUSS TOBACCO CESSATION (REFER TO SMARTSET #[id number]) 1935 Alpha-1 Antitrypsin 11/23/1953 Depression Screening 04/23/2021 [...] this encounter Medical Devices Implanted Type Area Street Superintendent Device Identifier Shelf Expiration Date Model / Serial / Lot Graft Aaa Bif [id number] - [id number] - [id number] Implanted:Qty: 1 on 02/13/2015 by Clayton Lee MD [place] [facility] [place]orta [employer] : VASCULAR 12/02/2016 [id number] / [id number] / Limb Contralat [id number] - [id number] - [id number] Implanted:Qty: 1 on 02/13/2015 by Clayton Lee MD [place] [facility] [place] [employer] : VASCULAR 11/19/2016 [id number] / [id number] / Limb Contralat [id number] - [id number] - [id number] Implanted:Qty: 1 on 02/13/2015 by Clayton Lee MD [place] [facility] [place]orta [employer] : VASCULAR [id number] / [id number] / Plug Vasc Ampl 16mm 9-Plug-016 - [id number] Implanted:Qty: 1 on 02/13/2015 by Clayton Lee MD [place] [facility] [place] Aorta [employer] MEDICAL TREVON 9-PLUG-0 16 / / documented [...] and were consensually agreed upon. Care Teams Floor Helper Relationship Specialty Start Date End Date Fran Peres MD [address] [place] [address] [place] [address] PCP - General Family Medicine 12/13/23 documented as of this encounter
--- OUTSIDE RECORDS SUMMARY | 2024-12-03 16:54 | External Medical Summary | Summary of Care ---
Author Name Unknown Organization [facility] Address [address] [facility] [place] [address] Phone [phone] Care Team Providers Care Adzing And Boring Machine Operator Name Role Phone Fran Peres MD Primary Care Provide r Reason for Visit * Reason Comments Outpatient Testing Encounter Details Date Type Department Care Team (Late st Contact Info) Description 09/12/2024 9:40 AM EST Laboratory Laboratory [address] [place] [phone] [place] [address] Gouty arthropathy Allergies No known active allergiesdocumented as of [...] ons: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),Homozygous MTHFR mutation L6514W,Hx pulmonary embolism Take 1 Tablet by mouth [...] 07/16/2020 Primary 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 of both knees 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 0 03/04/2019 Actinic keratosis 12/12/2018 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 without angina pectoris 04/19/2018 Abdominal aortic aneurysm without rupture 2015 Homozygous MTHFR mutation N7860A 09/14/2015 Factor V 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 12/30/2013 Overview [...] 09/12/2024 10:30 AM EST Office Visit Orthopaedics [address] [phone] Edwin Staples MD [address] [place] [address] Arrived 09/19/2024 10:30 AM EST Office Visit Orthopaedics [address] [phone] Edwin Staples MD [address] [place] [address] 09/26/2024 8:30 AM EST Imaging Vascular Lab, [address] [place] [address] 09/26/2024 10:30 AM EST Office Visit Orthopaedics [address] [phone] Edwin [facility] [place] [address] 10/02/2024 11:50 AM EST Office Visit Vascular Surgery, [facility] 132 [facility] [place] [address] Walt Raphael MD [address] [place] [address] 10/08/2024 9:30 AM EST Office Visit Cardiology [address] [place] [address] Jesus Alberto Montiel PA-C [facility] [place] [address] 11/07/2024 11:30 AM EST Office Visit Ophthalmology, [facility] [place] [address] Mau Deleon DO [facility] [place] [address] 12/25/2024 8:40 AM EDT Office Visit Family Medicine [address] [phone] Fran Peres MD [address] [place] [address] [place] [address] Pending Results Name Type Priority Associated Diagnoses Date /Time BASIC METABOLIC PANEL Lab Routine Gouty arthropathy 09/12/2024 9:45 AM EST Health Maintenance Due Date Last Done Comments [...] this encounter Medical Devices Implanted Type Area Epic Willow Analyst Device Identifier Shelf Expiration Date Model / Serial / Lot Graft Aaa Bif [id number] - [id number] - [id number] Implanted:Qty: 1 on 02/13/2015 by Clayton Lee MD [place] [facility] [place]orta [employer] : VASCULAR 12/02/2016 [id number] / [id number] / Limb Contralat [id number] - [id number] - [id number] Implanted:Qty: 1 on 02/13/2015 by Clayton Lee MD [place] [facility] [place]orta [employer] : VASCULAR 11/19/2016 [id number] / [id number] / Limb Contralat [id number] - [id number] - [id number] Implanted:Qty: 1 on 02/13/2015 by Clayton Lee MD [place] [facility] [place] Aorta [employer] : VASCULAR [id number] / [id number] / Plug Vasc Ampl 16mm 9-Plug-016 - [id number] Implanted:Qty: 1 on 02/13/2015 by Clayton Lee MD [place] [facility] [place] Aorta [employer] 9-PLUG-0 16 / / documented as of this encounter Visit Diagnoses Diagnosis Gouty arthropathy Gouty arthropathy, unspecified documented in this encounter Advance Directives [...] and were consensually agreed upon. Care Teams Adzing And Boring Machine Operator Relationship Specialty Start Date End Date Fran Peres MD [address] [place] [address] [place] [phone] PCP - General Family Medicine 12/13/23 documented as of this encounter
--- OUTSIDE RECORDS SUMMARY | 2024-12-03 16:54 | External Medical Summary | Summary of Care ---
Author Name Unknown Organization [facility] Address [address] [place] [facility] [place] [address] Phone [phone] Care Team Providers Care Nutrition Internship Name Role Phone Fran Peres MD Primary Care Provide r Reason for Visit * Reason Comments Pain * Precert (Within 30 days (routine)) - Authorized Specialty Diagnoses / Procedures Referred By Jody t Referred To Contact Orthopedics Diagnoses Bilateral primary 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 of knee Procedures [place] GEL-SYN INJECTION 0.1 MG Edwin Staples MD [address] [place] [address] Phone: tel: fax: Edwin Staples MD [address] [place] [address] Phone: tel: fax: Referral ID Status Reason Start Date Expiration Date V isits Requested Visits Authorized [id number] Authorized Precert 09/29/2023 09/28/[phone] Encounter Details Date Type Department Care Team (Latest Contact Info) Description 09/19/2024 10:30 AM EST Office Visit Orthopaedics [address] [phone] Edwin Staples MD [address] [place] [address] Primary 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 of both knees* Allergies No [...] (Duoneb)Indicatio ns:COPD, 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 determined ([facility]) Inhale 3 mL by mouth every [...] ons: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),Homozygous MTHFR mutation D6044X,Hx pulmonary embolism Take 1 Tablet by mouth [...] Release 24 Hour (toPROL XL)Indications:At herosclerosis of [place] coronary artery of [place] heart without angina pectoris TAKE 1 TABLET [...] knees 16.8 mg IX ONCE 09/19/2024 09/19/2024 Active sodium hyaluronate (Gelsyn-3) 16.8 MG/2ML inj 16.8 mgIndications:Primary 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 of both knees 16.8 mg IX ONCE 09/19/2024 09/19/2024 Active documented as of this encounter (statuses [...] 0 03/04/2019 Actinic keratosis 12/12/2018 Atherosclerosis of [place] 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[place] heart without angina pectoris 04/19/2018 Abdominal aortic aneurysm without rupture 2015 Homozygous MTHFR mutation O6741U 09/14/2015 Factor V 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 12/30/2013 Overview [...] Staples MD Sports Medicine Primary Care Orthopaedics [address] [phone] documented in this encounter Nursing Notes * Cornelia Doan LPN - 09/19/2024 10:27 AM EST Fup SECOND of a series Gelsyn injections Pt is unaccompanied today Rashmi Vela LPN documented in this encounter Plan of Treatment Upcoming Encounters Date Type Department Care Team (Late st Contact Info) Description 09/19/2024 11:00 AM EST Imaging Radiology [place] [address] [place] [address] Arrived 09/26/2024 8:30 AM EST Imaging Vascular Lab, [facility] 2nd [facility] [address] [facility] [place] [address] 09/26/2024 10:30 AM EST Office Visit Orthopaedics [address] [phone] Edwin Staples MD [address] [facility] [place] [address] 10/02/2024 11:50 AM EST Office Visit Vascular Surgery, [facility] [address] [facility] [place] [address] aWlt Raphael MD [address] [place] [address] 10/08/2024 9:30 AM EST Office Visit Cardiology [address] [place] [address] Jesus Alberto Montiel PAZeeC [facility] [place] [address] 10/21/2024 10:30 AM EST Office Visit Ophthalmology, [facility] 132 [facility] [place] [address] Mau Deleon DO [facility] [place] [address] 12/25/2024 8:40 AM EDT Office Visit Family Medicine [address] [phone] Fran Peres MD [address] [place] [address] [place] [address] Scheduled Orders Name Type Priority Associated Diagnoses [...] this encounter Medical Devices Implanted Type Area Canvas Shrinker Device Identifier Shelf Expiration Date Model / Serial / Lot Graft Aaa Bif [id number] - [id number] - [id number] Implanted:Qty: 1 on 02/13/2015 by Clayton Lee MD [place] [facility] [place]orta [employer] : VASCULAR 12/02/2016 [id number] 6E / [id number] / Limb Contralat [id number] - [id number] - [id number] Implanted:Qty: 1 on 02/13/2015 by Clayton Lee MD [place] [facility] [place] [employer] : VASCULAR 11/19/2016 [id number] / [id number] / Limb Contralat [id number] - [id number] - [id number] Implanted:Qty: 1 on 02/13/2015 by Clayton Lee MD [place] [facility] [place] [employer] : VASCULAR [id number] 4E / [id number] / Plug Vasc Ampl 16mm 9-Plug-016 - [id number] Implanted:Qty: 1 on 02/13/2015 by Clayton Lee MD [place] [facility] [place] Aorta [employer] MEDICAL TREVON 9-PLUG-0 16 / / documented [...] and were consensually agreed upon. Care Teams Nutrition Internship Relationship Specialty Start Date End Date Fran Peres MD [address] [place] [address] [place] [phone] PCP - General Family Medicine 12/13/23 documented as of this encounter
--- OUTSIDE RECORDS SUMMARY | 2024-12-03 16:54 | External Medical Summary | Summary of Care ---
Author Name Unknown Organization [facility] Address [address] [place] [address] Phone [phone] Care Team Providers Care General Intern Name Role Phone Fran Peres MD Primary Care Provide r Reason for Visit * Reason Comments Follow Up B/L knee Knee Pain * Precert (Within 30 days (routine)) - Authorized Specialty Diagnoses / Procedures Referred By Jody t Referred To Contact Orthopedics Diagnoses Bilateral primary 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 of knee Procedures CT GEL-SYN INJECTION 0.1 MG Edwin Staples MD [address] [place] [address] Phone: tel: fax: Edwin Staples MD [address] [place] [address] Phone: tel: fax: Referral ID Status Reason Start Date Expiration Date V isits Requested Visits Authorized [id number] Authorized Precert 09/29/2023 09/28/[id number] Encounter Details Date Type Department Care Team (Latest Contact Info) Description 09/12/2024 10:30 AM EST Office Visit Orthopaedics [address] [phone] Edwin Staples MD [address] [place] [address] Primary 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 of both knees*; Knee effusion, [...] ons: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),Homozygous MTHFR mutation A7735V,Hx pulmonary embolism Take 1 Tablet by mouth [...] Release 24 Hour (toPROL XL)Indications:At herosclerosis of [place] coronary artery of [place] heart without angina pectoris TAKE 1 TABLET [...] knees 16.8 mg IX ONCE 09/12/2024 09/12/2024 Active sodium hyaluronate (Gelsyn-3) 16.8 MG/2ML inj 16.8 mgIndications:Primary 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 of both knees 16.8 mg IX ONCE 09/12/2024 09/12/2024 Active documented as of this encounter (statuses as of 09/12/2024) Active Problems Problem Noted Date Diagnosed Date Other emphysema 12/13/2023 BMI 26.0-26.9,adult 11/08/2022 Emphysema of lung 07/07/2021 Aortic root dilatation 07/07/2021 Ascending aortic aneurysm 07/07/2021 Nonrheumatic mitral valve regurgitation 07/07/20 CKD (chronic kidney disease), stage II Overview (04/29/2021): EGFR 66.5 Hx pulmonary embolism 07/16/2020 Primary 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 of both knees 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 0 03/04/2019 Actinic keratosis 12/12/2018 Atherosclerosis of [place] 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[place] heart without angina pectoris 04/19/2018 Abdominal aortic aneurysm without rupture 2015 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 09/14/2015 Factor V 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 12/30/2013 Overview [...] - 09/12/2024 10:20 AM EST Jeff Powers [id number] Jeff Powers is a 88 year old male who presents for f/u to [facility] Orthopaedics and Sports Medicine for bilateral [...] 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) 12/23/2013 Admitted Daina Tobacco use disorder Vitamin [...] Staples MD Sports Medicine Primary Care Orthopaedics [address] [phone] documented in this encounter Nursing Notes * Cornelia Doan LPN - 09/12/2024 10:14 AM EST Fup -b/l knee pain -FIRST of a series gelsyn injections today -Pt accompanied by his today Rashmi MortensenLeilani SOFIA documented in this encounter Plan of Treatment Upcoming Encounters Date Type Department Care Team (Late st Contact Info) Description 09/12/2024 11:00 AM EST Imaging Radiology [place] [address] [place] [address] Arrived 09/19/2024 10:30 AM EST Office Visit Orthopaedics [address] [phone] Edwin Staples MD [address] [place] [address] 09/26/2024 8:30 AM EST Imaging Vascular Lab, [address] [facility] [place] [address] 09/26/2024 10:30 AM EST Office Visit Orthopaedics [address] [phone] Edwin Staples MD [address] [place] [address] 10/02/2024 11:50 AM EST Office Visit Vascular Surgery, [facility] 132 [facility] [place] [address] Walt Raphael MD [address] [place] [address] 10/08/2024 9:30 AM EST Office Visit Cardiology [address] [place] [address] Jesus Alberto Montiel PA-C [address] [place] [address] 11/07/2024 11:30 AM EST Office Visit Ophthalmology, [facility] [address] [place] [address] Mau Deleon, DO [address] [place] [address] 12/25/2024 8:40 AM EDT Office Visit Family Medicine [address] [place] [phone] Fran Peres MD [address] [place] [address] [place] [address] Scheduled Orders Name Type Priority Associated Diagnoses Orde r Schedule POINT OF CARE US MAJOR JOINT INJECTION, ORTHO Medical Imaging Routine Primary 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 of both knees Knee effusion, right Knee effusion, left Ordered: 09/12/2024 Health Maintenance Due Date Last Done Comments DISCUSS TOBACCO CESSATION (REFER TO SMARTSET #[id number]) 1935 Alpha-1 Antitrypsin 11/23/1953 Depression Screening 04/23/2021 [...] this encounter Medical Devices Implanted Type Area Gear Coding Machine Operator Device Identifier Shelf Expiration Date Model / Serial / Lot Graft Aaa Bif [id number] - [id number] - [id number] Implanted:Qty: 1 on 02/13/2015 by Clayton Lee MD at OR [facility] Aorta [employer] : VASCULAR 12/02/2016 [id number] / [id number] / Limb Contralat [id number] - [id number] - [id number] Implanted:Qty: 1 on 02/13/2015 by Clayton Lee MD at [place] [facility] [place] Aorta [employer] : VASCULAR 11/19/2016 [id number] E / [id number] / Limb Contralat [id number] - [id number] - [id number] Implanted:Qty: 1 on 02/13/2015 by Clayton Lee MD at [place] [facility] [place] Aorta [employer] : VASCULAR [id number] / [id number] / Plug Vasc Ampl 16mm 9-Plug-016 - [id number] Implanted:Qty: 1 on 02/13/2015 by Clayton Lee MD at OR [facility] [place] Aorta [employer] MEDICAL TREVON 9-PLUG-0 16 / / documented as of this encounter Visit Diagnoses Diagnosis Primary 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 of both knees- Primary Primary localized osteoarthrosis, lower leg Knee effusion, right Effusion of lower leg joint Knee effusion, left Effusion of lower leg joint Gout of knee, unspecified cause, unspecified chronicity, unspecified laterality documented in this encounter Advance Directives * [...] and were consensually agreed upon. Care Teams General Intern Relationship Specialty Start Date End Date Fran Peres MD [address] [place] [address] [place] [address] PCP - General Family Medicine 12/13/23 documented as of this encounter
--- OUTSIDE RECORDS SUMMARY | 2024-12-03 16:54 | External Medical Summary | Summary of Care ---
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 372 mL 5 01/15/20 21 Active Docusate Sodium 100 MG Oral Capsule (Colace)Indicatio ns:Constipation, unspecified constipation type Take 1 Cap by mouth daily. 60 Cap 2 06/25/20 21 Active Additional Information Patient taking differently:100 mg OralPRN, Reported on 09/05/2024 Calcium 200 MG Oral Tablet Take 200 mg by mouth in the morning. 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 60 Tablet 5 4 2:08 PM EDT 07/12/20 24 Active Allopurinol 100 MG Oral Tablet (Zyloprim)Indicat ions:Gouty arthropathy Take 1 Tablet by mouth in the morning. 90 Tablet 1 4 2:08 PM EDT 07/12/20 24 Active Sertraline HCl 50 MG Oral Tablet (Zoloft)Indicatio ns:Anxiety Take 1 Tablet by mouth in the morning. 90 Tablet 1 4 5:54 PM EST 07/30/20 24 Active Isosorbide Mononitrate ER 30 MG Oral Tablet Extended Release 24 Hour (Imdur)Indication s:Coronary artery calcification Take one-half Tablet by mouth in the morning. 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 0 03/04/2019 Actinic keratosis 12/12/2018 Atherosclerosis of [place] 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[place] heart without angina pectoris 04/19/2018 Abdominal aortic aneurysm without rupture 2015 Homozygous MTHFR mutation [id number] 09/14/2015 Factor V 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 12/30/2013 Overview (12/30/2013): has one copy of Factor V 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 Mixed dyslipidemia 11/25/2009 GENERAL OSTEOARTHROSIS Tobacco use disorder Exudative age-related macula r degeneration of both eyes with active choroidal neovascularization documented as of this encounter (statuses as of 09/05/2024) Resolved Problems Problem Noted Date Diagnosed Date [...] as of this encounter (statuses as of 09/05/2024) Immunizations Name Administration Dates Next Due COVID-19 [...] Progress Notes * Mau Deleon DO - 09/05/2024 10:00 AM EST [facility] [place] Nursing Notes: Caro Leahy RN 09/05/24 0948 Signed Jeff Powers is a 88 year old year old male who presents for Exud. AMD. Last Office Visit: 07/09/2024 (in office), Visit date not found (telemedicine) Patient currently states no change in vision. Are you diabetic? No Do you drive? yes OCT image(s) of both eyes acquired and filed/scanned into chart. Base Eye Exam Visual Acuity (Snellen - Linear) Right Left Dist sc 20/100 -1 20/350 -1 Dist ph sc NI NI Tonometry (Tonopen, 9:47 AM) Right Left Pressure 18 27 Tonometry #2 (Tonopen, 9:47 AM) Right Left Pressure 26 Tonometry #3 (Tonopen, 9:47 AM) Right Left Pressure 27 Pupils Pupils APD Right PERRL None Left PERRL None Visual Ponce (Counting fingers) Right Left Full Full Extraocular Movement Right Left Full, Ortho Full, Ortho Neuro/Psych Oriented x3: Yes Mood/Affect: Normal Dilation Both eyes: 0.5% Proparacaine @ 9:46 AM Dilation #2 Both eyes: 1.0% Mydriacyl, 2.5% Phenylephrine @ 9:46 AM Dilation #3 Both eyes: 1.0% Mydriacyl, 2.5% Phenylephrine @ 9:48 AM Dilation Comments Patient cautioned that effects [...] Degeneration OU OD>OS - s/p Eylea OD 05/14/24, (03/19/24, 12/21/23, 10/19/23, 08/17/23, 06/15/23, 04/11/23, 02/09/23, 12/12/22, 09/29/22,07/28/22, 04/28/22, 01/20/22, 10/28/21, 04/22/21, 01/21/21, 10-15-20, 06-25-20, 03-05-20, 11-14-19, 07-25-19,04-18-19, 01-17-19, 07-17-18, 05-08-18, 03-27-2018, 12-27-17, 18, 08-25-17, 07-05-17) - 8 weeks since last injection - s/p Eylea OS (05/14/24, 03/19/24, 12/21/23, 10/19/23, 08/17/23, 06/15/23, 04/11/23, 02/09/23, 12/12/22, 09/29/22,07/28/22, 04/28/22, 01/20/22, 10/28/21, 04/22/21, 01/21/21, 10-15-20, 20, 20, 3-5-20, 11-14-19,8--19, 5-9-19, --18, 05-08-18,12-27-18, --18, 08-25-17, 07-13-17) - 8 weeks since last injection - worse at 11 weeks, prior worse at 19 weeks in past - on coumadin - recommend AREDS2 MVI as directed and Amsler grid qday 2. Pseudophakia OU -stable 3. S/p TAB for suspected GCA--was negative -will submit DL-13; may qualify for restricted license F/u 8-10 weeks - Dilate and OCT [...] Nursing Notes * Merissa Seymour TECH - 09/05/2024 10:20 AM EST Jeff Powers to receive 35 Eylea 2mg Injection of the Right eye. Correct eye confirmed with patient and marked by Mau Deleon DO Eylea 2mg lot # [id number] Exp. Date: 12/2025 Jeff Powers to receive 34 Eylea 2mg Injection of the Left eye. Correct eye confirmed with patient and marked by Mau Deleon DO Eylea 2mg lot # [id number] Exp. Date: 12/2025 * Caro Leahy RN - 09/05/2024 9:40 AM EST Jeff Powers is a 88 year old year old male who presents for Exud. AMD. Last Office Visit: 07/09/2024 (in office), Visit date not found (telemedicine) Patient currently states no change in vision. Are you diabetic? No Do you drive? yes OCT image(s) of both eyes acquired and filed/scanned into chart. documented in this encounter Plan of Treatment Upcoming Encounters Date Type Department Care Team (Late st Contact Info) Description 09/12/2024 10:30 AM EST Office Visit Orthopaedics [address] [phone] Edwin Staples MD [address] [place] [address] 09/19/2024 10:30 AM EST Office Visit Orthopaedics [address] [place] [phone] Edwin Staples MD [address] [place] [address] 09/26/2024 8:30 AM EST Imaging Vascular Lab, [address] [place] [place] [address] 09/26/2024 10:30 AM EST Office Visit Orthopaedics [address] [place] [phone] Edwin Staples MD [address] [place] [address] 10/02/2024 11:50 AM EST Office Visit Vascular Surgery, [facility] [address] [place] [place] [address] Walt Raphael MD [address] [facility] [place] [address] 10/08/2024 9:30 AM EST Office Visit Cardiology [address] [place] [address] Jesus Alberto Montiel PA-C [address] [place] [address] 11/07/2024 11:30 AM EST Office Visit Ophthalmology, [facility] [address] [place] [address] Mau Deleon DO [address] [place] [address] 12/25/2024 8:40 AM EDT Office Visit Family Medicine [address] [place] [phone] Fran Peres MD [address] [place] [address] [place] [address] Scheduled Orders Name Type Priority Associated Diagnoses Orde r Schedule RETINA SCAN DIAGNOSTIC IMAGE, POSTERIOR Procedures Routine 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) Ordered: 09/05/2024 Health Maintenance Due Date Last Done Comments DISCUSS TOBACCO CESSATION (REFER TO SMARTSET #[id number]) 1935 Alpha-1 Antitrypsin 11/23/1953 Depression Screening 04/23/2021 04/23/2020 Adult Wellness Visit 05/03/2023 05/03/2022 COVID-19 Vaccine ( season) 2024 05/03/2022, 11/02/2021, 11/06/2020, Additional history exists O2 ASSESSMENT COMPLETED IN PAST YEAR FOR COPD 07/12/2025 07/12/2024 DTap/Tdap Vaccines (4 - Td or Tdap) [...] this encounter Medical Devices Implanted Type Area Inside Polisher Device Identifier Shelf Expiration Date Model / Serial / Lot Graft Aaa Bif [id number] - [id number] - [id number] Implanted:Qty: 1 on 02/13/2015 by Clayton Lee [place] [facility] [place] [employer] : VASCULAR 12/02/2016 [id number] / [id number] / Limb Contralat [id number] - [id number] - [id number] Implanted:Qty: 1 on 02/13/2015 by Clayton Lee MD [place] [facility] [place] [employer] : VASCULAR 11/19/2016 [id number] / [id number] / Limb Contralat [id number] - [id number] - [id number] Implanted:Qty: 1 on 02/13/2015 by Clayton Lee MD [place] [facility] [place] [employer] : VASCULAR [id number] / [id number] / Plug Vasc Ampl 16mm [id number]-016 - [id number] Implanted:Qty: 1 on 02/13/2015 by Clayton Lee MD [place] [facility] [place]yxoah TREVON 9-PLUG-0 16 / / documented as [...] eyes with active choroidal neovascularization (HCC) Given 09/05/2024 10:24 AM EST 2 mg Eye Left Given 09/05/2024 10:23 AM EST 2 mg E ye Right Given 07/09/2024 9:21 AM EDT 2 mg Ey e Left ROPivacaine (Naropin) inj 1.5 mg 1.5 mg, Injection, PRN Other, Starting on Mon07/09/24 at 0914, Until Mon07/09/25 at 0913, For 365 daysIndications: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 Care Teams Salary And Wage Administrator Relationship Specialty Start Date End Date Fran Peres MD [address] [place] [address] [place] [phone] PCP - General Family Medicine 12/13/23 documented as of this encounter
--- OUTSIDE RECORDS SUMMARY | 2024-12-03 16:55 | External Medical Summary | Summary of Care ---
Author Name Unknown Organization [facility] Address [address] [facility] [facility] [address] Phone [phone] Care Team Providers Care Sales Performance Manager Name Role Phone Fran Peres MD Primary Care Provide r Reason for Visit * Reason Comments Follow Up B/l knee Knee Pain Encounter Details Date Type Department Care Team (Latest Contact Info) Description 06/27/2024 9:30 AM EDT Office Visit Orthopaedics [address] [phone] Edwin Staples MD [address] [place] [address] Primary 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 of both knees*; Knee effusion, left; Knee effusion, right Allergies No known active allergiesdocumented as of this encounter (statuses as of 07/04/2024) Medications Medication Sig Dispensed Refills Start Date End Date Status Cyanocobalamin (VITAMIN B-12) [address] [...] Vitamins-Minerals (MULTIVITAMIN ADULT) TABS Take by mouth. Active Cholecalciferol (VITAMIN D) 2000 UNITS Capsule Take 2,000 Units by mouth daily. Active Multiple Vitamins-Minerals (PRESERVISION AREDS 2) Capsule Take 1 Capsule by mouth in the morning. Active Ipratropium-Albutero l 0.5-2.5 (3) MG/3ML Inhalation Solution (Duoneb)Indications: COPD, 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 determined (HCC) Inhale 3 mL by mouth every 6 hours as needed for Shortness of Breath. 372 mL 5 01/14/2021 Active Docusate Sodium 100 MG Oral Capsule (Colace)Indications: Constipation, unspecified constipation type Take 1 Cap by mouth daily. 60 Cap 2 06/25/2021 Active Additional Information Patient taking differently:100 mg OralPRN, Reported on 12/12/2022 Calcium 200 MG Oral Tablet Take 200 mg by mouth in the morning. 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 200 Tablet 1 04/05/2024 Active Sertraline HCl 50 MG Oral Tablet (Zoloft)Indications: Anxiety Take 1 Tablet by mouth in the morning. 90 Tablet 05/08/2024 Active Rosuvastatin Calcium 40 MG Oral Tablet (Crestor)Indications :Mixed dyslipidemia TAKE ONE TABLET BY MOUTH EVERY DAY AT BEDTIME 100 Tablet 1 05/14/2024 Active Isosorbide Mononitrate ER 30 MG Oral Tablet Extended Release 24 Hour (Imdur)Indications:C oronary artery calcification Take 0.5 Tablets by mouth in the morning. 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) TAKE ONE TABLET BY MOUTH EVERY MORNING 100 Tablet 3 06/25/2024 Active Hospital, Clinic, or Other Facility Administered Medication Ordered Dose Route Frequency Start Date End Date Status lidocaine 1 % inj 10 mgIndications:Primary 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 of both knees 10 mg IX ONCE 06/27/2024 06/27/2024 Ended Triamcinolone Acetonide (Kenalog) 40 MG/ML inj 40 mgIndications:Primary 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 of both knees 40 mg IX ONCE 06/27/2024 06/27/2024 Ended lidocaine 1 % inj 10 mgIndications:Primary 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 of both knees 10 mg IX ONCE 06/27/2024 06/27/2024 Ended Triamcinolone Acetonide (Kenalog) 40 MG/ML inj 40 mgIndications:Primary 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 of both knees 40 mg IX ONCE 06/27/2024 06/27/2024 Ended documented as of this encounter (statuses as of 07/04/2024) Active Problems Problem Noted Date Diagnosed Date Other emphysema 12/13/2023 BMI 26.0-26.9,adult 11/08/2022 Emphysema of lung 07/07/2021 Aortic root dilatation 07/07/2021 Ascending aortic aneurysm 07/07/2021 Nonrheumatic mitral valve regurgitation 07/07/20 CKD (chronic kidney disease), stage II Overview: EGFR 66.5 Hx pulmonary embolism 07/16/2020 Primary 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 of both knees 08/01/2019 pen[facility]iary current use of 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 0 03/04/2019 Actinic keratosis 12/12/2018 Atherosclerosis of [place] 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[place] heart without angina pectoris 04/19/2018 Abdominal aortic aneurysm without rupture 2015 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 09/14/2015 Factor V 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 12/30/2013 Overview: has one copy of Factor V 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 Mixed dyslipidemia 11/25/2009 ADVANCE DIRECTIVE INFORMATION 09/13/2005 Overview: Yes, Patient instructed to provide copy of advance directive for provider to review and to be scanned into Electronic Medical Record GENERAL OSTEOARTHROSIS Tobacco use disorder Exudative age-related macula r degeneration of both eyes with active choroidal neovascularization documented as of this encounter (statuses as of 07/04/2024) Resolved Problems Problem Noted Date Diagnosed Date Resolved Date ASCVD (arteriosclerotic card iovascular disease) 07/07/2021 10/19/2021 Coronary artery calcification 07/07/2021 03/26/2024 Overview: duplicate Abdominal aortic aneurysm (A AA) without rupture 10/11/2016 10/11/2016 AAA (abdominal aortic aneurysm) 10/07/2015 10/11/2016 Overview: S/p repair Iliac artery thrombosis, left 09/23/2015 04/19/2018 Coronary atherosclerosis 04/30/201502/2019 Abdominal aortic ectasia 10/30/2014 Discomfort in chest 10/21/2014 10/17/19 18 Macular degeneration (senile) of retina 06/26/2014 10/24/2019 Saddle embolus of pulmonary artery 12/23/2013 04/19/2018 Overview: Admitted [facility] Encounter for examination fo r normal comparison and control in clinical research program 07/31/2012 2013 Overview: Diagnosis changed due to Research Module. Go to Snapshot for study details. Vitamin D deficiency 11/25/2009 018 Overview: Vitamin D 18.8 Dyslipidemia, goal to be determined 08/20/2009 11/25/2009 Overview: Per Lipid Taxonomy. Essential hypertension with goal blood pressure less than 140/90 10/17/2017 PURE HYPERCHOLESTEROLEM 08/11 Overview: Per Lipid Taxonomy. Esophageal reflux 04/23/2019 BMI 32.0-32.9,adult 01/16/20 13 BMI 31.0-31.9,adult 10/11/19 17 documented as of this encounter (statuses as of 07/04/2024) Immunizations Name Administration Dates Next Due COVID-19 [...] Answer Date Recorded PHQ-2 Score -1 05/31/2020 Utilities Answer Date Recorded Do you have trouble paying y our heating, water, or electric bill? (Adult - for ages 18 years and over) Not on file 02/27/2024 Is your family able to pay t he heat, water, or electric bill? (Household - for ages 0-17 years) Not on file 02/27/2024 Does your family have access to good internet? (Household - for ages 0-17 years) Not on file 02/27/2024 Social Connections Answer Date Recorded How often do you feel lonely or isolated from those around you? (Adult - for ages 18 years and over) Not on file 02/27/2024 Sex and Gender Information Value Date Recorded Sex Assigned at Not on file Gender Identity Not on file Sexual Orientation Not on file Job Start Date Occupation Industry Not on file Not on file Not on file documented as of this encounter Progress Notes * Edwin Staples MD - 06/27/2024 9:26 AM EDT Byron Powers [id number] Byron Powers is a 88 year old male who presents for f/u to [facility] for bilateral knee injury/pain. I saw him originally for this on 06/01/2023 Most recent complete visit 01/18/2024 was a telephone encounter Patient was accompanied by his Quality: reviewed [...] reports his knees just do not work. Since that visit: f/u B/l knee pain -Pt received THIRD of series of Gelsyn injections on 10/26/23 -steroid injection today?? -Pt unsure which injections he had longer benefit from: gel or steroid injections ROS: ROS per HPI otherwise non-contributory Past Medical History: Diagnosis Date Abdominal aortic ectasia (HCC) 10/30/2014 Anterior epistaxis 12/03/2017 ER Bilateral dry eyes BMI 28.0-28.9,adult CKD (chronic kidney disease), stage II 10/29/2020 EGFR 66.5 Diverticulosis of colon 07/24/2007 minimal sigmoid diverticular disease Encounter for ophthalmic examination and evaluation 10/05/2006 Esophageal reflux Exudative age-related macular degeneration of both eyes with active choroidal neovascularization ([facility]) Exudative age-related macular degeneration of right eye with active choroidal neovascularization ([facility]) Factor V 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 ([facility]) 12/30/2013 has one copy of Factor V 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 Generalized 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 GERD (gastroesophageal reflux disease) Herpes zoster 08/05/2008 left 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 09/18/2015 [facility] HTN, goal below 140/90 Iliac artery thrombosis, left ([facility]) 09/18/2015 [facility] Internal hemorrhoids 07/24/2007 Macular degeneration (senile) of retina 06/26/2014 Nonexudative age-related macular degeneration, bilateral, intermediate dry stage Other seborrheic keratosis 06/17/2002 maulik-surgical removal under local anesthesia Saddle embolus of pulmonary artery ([facility]) 12/23/2013 Admitted [place] Tobacco use disorder Vitamin D deficiency 11/25/2009 [...] Last attempt to quit: 04/27/2021 Years since quittin.1 Smokeless tobacco: Never Tobacco comments: 08/31/22 4-5 little cigars, declined pamphlet Vaping Use Vaping status: Never Used Substance and Sexual Activity Alcohol use: Yes Comment: 3-4 days a week Drug use: No Sexual activity: Not on file Other Topics Concern Not on file Social History Narrative Blood type A positive Social Determinants of Health Financial Resource Strain: Not on file Food Insecurity: Not on file Transportation Needs: Not on file Social Connections: Unknown (02/27/2024) Social Connections How often do you feel lonely or isolated from those around you? (Adult - for ages 18 years and over): Not on file Housing Stability: Not on [...] PT or injury or bracing or surgery Reports he continues to get significant benefit from steroid injections and at this time would justlike to continue those bilateral intra-articular steroid injection performed, which I originally performed on 06/01/2023. Did get significant benefit but lasted less than 3 months. I recommended trying viscosupplementation. Viscosupplementation with Gelsyn completed on 10/26/2023 in BL knees 4-5 weeks of significant benefit, but then the benefit begin to wean off is back to baseline Repeat intra-articular steroid injections performed 12/21/2023 Helped but only for about a month Discussed options Bilateral knees aspirated and then injected with steroid with ultrasound guidance The aspirated fluid from the left knee was sent for analysis for crystals and cell count, did not send culture as I do not suspect septic joint Note: Following the aspiration and steroid injection he reported 200% improvement in symptoms He was also be scheduled for likely ultrasound-guided bilateral viscosupplementation to start in 6-8 weeks Once again discussed options related to knee [...] plan to follow up with me. 2) he also mentioned he has some right-sided hip pain which is very rare. I offered evaluation for this at his original visit and he declined. If it worsens or becomes more consistent than he would welcome any eval. Update 07/04/2024: Labs from patient's knee aspiration returned to be healing positive monosodium urate crystals. Spoke with the patient's over the phone regarding diagnosis of gout and knee to either see hisPCP or Rheumatology. She elected to see PCP. I have message sent to Dr. Larisa MARCOS to make him aware. Message also sent to scheduling to get the patient is scheduled PROCEDURE NOTE: KNEE ASPIRATION/INJECTION Laterality: Bilateral Time [...] recess using 1.5 inch, 18 gauge needle. 28 mL of straw-colored fluid aspirated on Left and 40 mL of straw-colored fluid aspirated on Right. Knee then injected with 1 mL Lidocaine 1% - 1 mL Triamcinolone Acetonide 40 mg/mL >> inject 2 mL. Patient tolerated procedure with no significant bleeding or adverse reaction. Patient instructed to call or return to clinic for fever, warmth, unusual redness at injection sitefor potential infection. Patient also advised regarding post-procedural pain. Edwin Staples MD Sports Medicine Primary Care Orthopaedics [address] [phone] documented in this encounter Nursing Notes * Cornelia Doan LPN - 06/27/2024 9:31 AM EDT F/u B/l knee pain -Pt received THIRD of series of Gelsyn injections on 10/26/23 -steroid injection today?? -Pt unsure which injections he had longer benefit from: gel or steroid injections -Pt accompanied by his today Rashmi Vela LPN documented in this encounter Plan of Treatment Upcoming Encounters Date Type Department Care Team (Late st Contact Info) Description 07/09/2024 8:15 AM EDT Office Visit Ophthalmology, [facility] [address] [place] [address] Mau Deleon, [address] [place] [address] 07/12/2024 11:40 AM EDT Office Visit Family Medicine [address] [place] [phone] Yaz Terry CRNP [address] [place] [address] [place] [phone] 09/12/2024 10:30 AM EST Office Visit Orthopaedics [address] [place] [phone] Edwin Staples MD [address] [place] [address] 09/18/2024 8:30 AM EST Appointment Vascular [facility] [place] [address] [place] [address] 09/18/2024 9:00 AM EST Office Visit Vascular Surg [place] [address] [place] [address] Clayton Lee MD [address] [place] [address] 09/19/2024 10:30 AM EST Office Visit Orthopaedics [address] [phone] Edwin Staples MD [address] [place] [address] 09/26/2024 10:30 AM EST Office Visit Orthopaedics [address] [phone] Edwin Staples MD [address] [place] [address] 10/08/2024 9:30 AM EST Office Visit Cardiology [address] [place] [address] Jesus Alberto Montiel PA-C [address] [place] [address] 12/25/2024 8:40 AM EDT Office Visit Family Medicine [address] [phone] Fran Perse MD [address] [place] [address] [place] [phone] Health Maintenance Due Date Last Done Comments DISCUSS TOBACCO CESSATION (REFER TO SMARTSET #[id number]) 1935 Alpha-1 Antitrypsin 11/23/1955 Depression Screening 04/23/2021 04/23/2020 Adult Wellness Visit 05/03/2023 05/03/2022 COVID-19 Vaccine ( season) 2024 05/03/2022, 11/02/2021, 11/06/2020, Additional history exists O2 ASSESSMENT COMPLETED IN PAST YEAR FOR COPD 04/04/2025 04/04/2024 DTap/Tdap Vaccines (4 - Td or Tdap) 05/09/2033 05/09/2023, 11/05/2022, 01/15/2013, Additional history exists Pneumococcal Vaccine: 65+ Years Completed 09/22/2014, 09/17/2003 Zoster Vaccines Completed [...] this encounter Medical Devices Implanted Type Area Legal Associate Device Identifier Shelf Expiration Date Model / Serial / Lot Graft Aaa Bif [id number] - [id number] - [id number] Implanted:Qty: 1 on 02/13/2015 by Clayton Lee MD [place] [facility] Aorta [employer] : VASCULAR 12/02/2016 [id number] / [id number] / Limb Contralat [id number] - [id number] - [id number] Implanted:Qty: 1 on 02/13/2015 by Clayton Lee MD [place] [facility] Aorta [employer] : VASCULAR 11/19/2016 [id number] / [id number] / Limb Contralat [id number] - [id number] - [id number] Implanted:Qty: 1 on 02/13/2015 by Clayton Lee MD [place] [facility] [employer] : VASCULAR [id number] / [id number] / Plug Vasc Ampl 16mm [id number] - [id number] Implanted:Qty: 1 on 02/13/2015 by Clayton Lee MD [place] [facility] Aorta [employer] TREVON 9-PLUG-[id number] 16 / / documented as of this encounter Procedures Procedure Name Priority Date/Time Associated Diagnosis Comments POINT OF CARE US MAJOR JOINT INJECTION, ORTHO Routine 06/27/2024 5:48 PM EDT Primary 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 of both knees Knee effusion, left Knee effusion, right MANUAL DIFFERENTIAL, SYNOVIAL FLUID Routine 06/27/2024 11:22 AM EDT Knee effusion, left CELL COUNT WITH DIFFERENTIAL, SYNOVIAL FLUID Routine 06/27/2024 11:22 AM EDT Knee effusion, left CELL COUNT, SYNOVIAL FLUID Routine 06/27/2024 11:22 AM EDT Knee effusion, left CRYSTAL ANALYSIS, BODY FLUID Routine 06/27/2024 11:22 AM EDT Knee effusion, left documented in this encounter Results * POINT OF CARE US MAJOR JOINT INJECTION, ORTHO (06/27/2024 5:48 PM EDT) Anatomical Region Laterality Modality Musculoskeletal Radiographic Jacquelyn ging 06/27/2024 5:48 PM EDT Narrative 06/28/2024 12:35 PM EDT Patient Name: BYRON POWERS : 1935 (88y) Male Performing Provider: Edwin Staples (digitally signed Jun 28, 2024 12:35 EDT) Attending: Edwin Staples (digitally signed Jun 28, 2024 12:35 EDT) [Impression] : PROCEDURE NOTE: KNEE ASPIRATION/INJECTION Laterality: [...] recess using 1.5 inch, 18 gauge needle. 28 mL of straw-colored fluid aspirated on Left and 40 mL of straw-colored fluid aspirated on Right. Knee then injected with 1 mL Lidocaine 1% - 1 mL Triamcinolone Acetonide 40 mg/mL >> inject 2 mL. Patient tolerated procedure with no significant bleeding or adverse reaction. Procedure Note Edwin Staples MD - 06/28/2024 Patient Name: BYRON POWERS : 1935 (88y) Male Performing Provider: Edwin Staples (digitally signed Jun 28, 2024 12:35EDT) Attending: Edwin Staples (digitally signed Jun 28, 2024 12:35 EDT) [Impression] : PROCEDURE NOTE: KNEE ASPIRATION/INJECTION Laterality: [...] superior-lateral recess using 1.5 inch, 18 gauge needle.28 mL of straw-colored fluid aspirated on Left and 40 mL of straw-coloredfluid aspirated on Right. Knee then injected with 1 mL Lidocaine 1% - 1 mLTriamcinolone Acetonide 40 mg/mL >> inject 2 mL. Patient tolerated procedure with no significant bleeding or adversereaction. Edwin Staples MD RAD ULTRASO UND * MANUAL DIFFERENTIAL, SYNOVIAL FLUID (06/27/2024 11:22 AM EDT) Total Nucleated Cell Count, Fluid 224 cells/uL 06/28/2024 1:06 AM EDT [facility] Neutrophils % 17 0 - 25 % 06/28/2024 1:06 AM EDT [facility] Lymphocytes % 14 0 - 78 % 06/28/2024 1:06 AM EDT [facility] Monocytes % 63 0 - 71 % 06/28/2024 1:06 AM EDT [facility] Lining Cells % 6 % 06/28/2024 1:06 AM EDT [facility] Absolute Neutrophils 38.08 cells/uL 06/28/2024 1:06 AM EDT [facility] Absolute Lymphocytes 31.36 cells/uL 06/28/2024 1:06 AM EDT [facility] Absolute Monocytes 141.12 cells/uL 06/28/2024 1:06 AM EDT [facility] Absolute Lining Cells 13.44 cells/uL 06/28/2024 1:06 AM EDT [facility] Synovial Fluid Structure of left knee region / Unknown Non-blood Collection / Unknown 06/27/2024 11:22 AM EDT 06/27/2024 11:31 AM EDT Narrative [facility] - 06/28/2024 1:06 AM EDT Reference ranges are for joints without prior surgery. Some reference ranges and other method performance specifications have not been established for this fluid. The test results must be integrated into the clinical context for interpretation. Edwin Staples MD LAB FLUID A ND STOOL ORDERABLES Performing Organization Address City/State/[facility] Co de Phone Number LAB[facility]ATORY [facility] [address] [place] [address] * (ABNORMAL) CELL COUNT, SYNOVIAL FLUID (06/27/2024 11:22 AM EDT) Color, Fluid Yellow Straw, Yellow, Colorless 06/27/2024 11:13 PM EDT [facility] Clarity, Fluid Clear Clear 06/27/2024 11:13 PM EDT LABORATORY GM Total Nucleated Cell Count, Fluid 224(H) 0 - 180 cells/uL 06/27/2024 11:13 PM EDT [facility] RBC, Fluid 254 <2,000 cells/uL 06/27/2024 11:13 PM EDT [facility] Synovial Fluid Structure of left knee region / Unknown Non-blood Collection / Unknown 06/27/2024 11:22 AM EDT 06/27/2024 11:31 AM EDT Narrative [facility] - 06/27/2024 11:13 PM EDT Reference ranges are for joints without prior surgery. Some reference ranges and other method performance specifications have not been established for this fluid. The test results must be integrated into the clinical context for interpretation. Edwin Staples MD LAB FLUID A ND STOOL ORDERABLES Performing Organization Address [facility] de Phone Number LABORATORY [address] [address] * (ABNORMAL) CRYSTAL ANALYSIS, BODY FLUID (06/27/2024 11:22 AM EDT) Color, Fluid Yellow Straw, Yellow, Colorless 06/28/2024 1:08 AM EDT LABORATORY C Clarity, Fluid Clear Clear 06/28/2024 1:08 AM EDT LAB[facility]ORY [facility] Crystals, Stained Preparation Many Monosodium Urate Crystals Present(A) No Crystals Present 06/28/2024 1:08 AM EDT LAB[facility]ORY [facility] Crystals, Wet Preparation No Crystals Present No Crystals Present 06/28/2024 1:08 AM EDT LAB[facility]ORY [facility] Synovial Fluid Structure of left knee region / Unknown Non-blood Collection / Unknown 06/27/2024 11:22 AM EDT 06/27/2024 11:31 AM EDT Edwin Staples MD LAB FLUID A ND STOOL ORDERABLES Performing Organization Address [facility] de Phone Number LABORATORY [address] [address] documented in this encounter Visit Diagnoses Diagnosis Primary 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 of both knees- Primary Primary localized osteoarthrosis, lower leg Knee effusion, left Effusion of lower leg joint Knee effusion, right Effusion of lower leg joint documented in this encounter Administered Medications Inactive Administered Medications - up to 3 most recent administrations Medication Order MAR Action Action Date Dose Rate Site lidocaine 1 % inj 10 mg 10 mg, Intra-Articular, ONCE, On Faviola 06/27/24 at 1045, For 1 dose Given 06/27/2024 1:40 PM EDT 10 mg Knee Right lidocaine 1 % inj 10 mg 10 mg, Intra-Articular, ONCE, On Faviola 06/27/24 at 1045, For 1 dose Given 06/27/2024 1:39 PM EDT 10 mg Knee Left Triamcinolone Acetonide (Kenalog) 40 MG/ML inj 40 mg 40 mg, Intra-Articular, ONCE, On Faviola 06/27/24 at 1045, For 1 dose Given 06/27/2024 1:39 PM EDT 40 mg Knee Right Triamcinolone Acetonide (Kenalog) 40 MG/ML inj 40 mg 40 mg, Intra-Articular, ONCE, On Faviola 06/27/24 at 1045, For 1 dose Given 06/27/2024 1:39 PM EDT 40 mg Knee Left documented in this encounter [...] were consensually agreed upon. Care Teams Sales Performance Manager Relationship Specialty Start Date End Date Fran Peres MD [address] [place] [address] [place] [phone] PCP - General Family Medicine 12/13/23 documented as of this encounter
--- OUTSIDE RECORDS SUMMARY | 2024-12-03 16:55 | External Medical Summary ---
Author Name Unknown Address Unknown Organization K01:LABORATORY [facility] [place] - [address] [place] [address] Laboratory Report Ordering Provider Test Date Status LIS POND 07/12/2024 11:56:23 Final Observation Date Value Abnormality Reference (Units ) Status Uric Acid 07/12/2024 11:56:23 3.5 3.4-7.0 (m g/dL) Final Performing Location LABORATORY [facility] [place] - [address] [place] [address]
--- OUTSIDE RECORDS SUMMARY | 2024-12-03 16:55 | External Medical Summary ---
Author Name Unknown Address Unknown Organization K01:[facility] [address] [facility] [place] [address] Laboratory Report Ordering Provider Test Date Status LIS POND 07/12/2024 11:56:23 Final Observation Date Value Abnormality Reference (Units ) Status BUN 07/12/2024 11:56:23 13 6-20 (mg/dL) Final Creatinine 07/12/2024 11:56:23 1.0 0.6-1.2 (mg/dL) Final Glomerular filtration rate/1.73 sq M.predicted [Volume Rate/Area] in Serum, Plasma or Blood by Creatinine-based formula (CKD-EPI) 07/12/2024 11:56:23 72 >=60 (mL/min) Final eGFR is calculated based on the CKD-EPI 2020 equation. Sodium 07/12/2024 11:56:23 137 135-146 (m mol/L) Final Potassium 07/12/2024 11:56:23 4.8 3.5-5.1 (m mol/L) Final Cl 07/12/2024 11:56:23 100 98-107 (mm ol/L) Final CO2 07/12/2024 11:56:23 25 22-32 (mmo l/L) Final Anion gap 07/12/2024 11:56:23 12 7-15 (mmol /L) Final Glucose 07/12/2024 11:56:23 84 70-120 (mg /dL) Final Albumin 07/12/2024 11:56:23 4.3 3.8-5.0 (g /dL) Final AST (Aspartate aminotransferase) 07/12/2024 11:56:23 28 10-50 (U/L) Final Alk Phos 07/12/2024 11:56:23 60 35-130 (U/ L) Final Bilirubin, Total 07/12/2024 11:56:23 0.8 <=1 .2 (mg/dL) Final Calcium 07/12/2024 11:56:23 9.8 8.4-10.2 ( mg/dL) Final Protein 07/12/2024 11:56:23 6.5 6.0-8.3 (g /dL) Final ALT (Alanine aminotransferase) 07/12/2024 11:56:23 27 10-50 (U/L) Final Performing Location [facility] [address] [facility] [address]
--- OUTSIDE RECORDS SUMMARY | 2024-12-03 16:55 | External Medical Summary | Summary of Care ---
Author Name Unknown Organization [facility] [address] [facility] [address] Phone [phone] Care Team Providers Care Webbing Seamer Pound Net Name Role Phone Kalpana Peres MD Primary Care Provide r Reason for Visit * Reason Comments Medication Refill Encounter Details Date Type Department Care Team (Late st Contact Info) Description 07/29/2024 Refill Family Medicine [address] [place] [address] Kalpana Peres MD [address] [place] [address] [place] [address] Anxiety Allergies No known active allergiesdocumented as of this encounter (statuses as of 07/30/2024) Medications Cyanocobalamin (VITAMIN B-12) 6000 MCG SUBL [...] ons: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),Homozygous MTHFR mutation [id number],Hx pulmonary embolism Take 1 Tablet by mouth in the morning and 1 Tablet before bedtime. 200 Tablet 1 4 12:23 PM EST 04/05/20 24 Active Rosuvastatin Calcium 40 MG Oral Tablet (Crestor)Indicati ons:Mixed dyslipidemia TAKE ONE TABLET BY MOUTH EVERY DAY AT BEDTIME 100 Tablet 1 4 3:38 PM EDT 05/14/20 24 Active Isosorbide Mononitrate ER 30 [...] MOUTH EVERY EVENING 100 Tablet 1 4 8:03 AM EDT 06/02/20 24 Active Clopidogrel Bisulfate 75 MG [...] mouth in the morning. 90 Tablet 1 07/30/20 24 Active Sertraline HCl 50 MG Oral Tablet (Zoloft)Indicatio ns:Anxiety Take 1 Tablet by mouth in the morning. 90 Tablet 4 1:50 PM EDT 05/08/20 24 024 Discontin ued(Refil l) Hospital, Clinic, or Other [...] as of this encounter (statuses as of 07/30/2024) Active Problems Problem Noted Date Diagnosed Date [...] aneurysm without rupture 2015 Homozygous MTHFR mutation [id number] 09/14/2015 Factor V 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 12/30/2013 Overview (12/30/2013): has one copy of Factor V 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 Mixed dyslipidemia 11/25/2009 GENERAL OSTEOARTHROSIS Tobacco use disorder Exudative age-related macula r degeneration of both eyes with active choroidal neovascularization documented as of this encounter (statuses as of 07/30/2024) Resolved Problems Problem Noted Date Diagnosed Date [...] pulmonary artery 12/23/2013 04/19/2018 Overview (12/25/2013): Admitted [place] Encounter for examination fo r normal comparison [...] as of this encounter (statuses as of 07/30/2024) Immunizations Name Administration Dates Next Due COVID-19 [...] encounter Miscellaneous Notes * Telephone Encounter - Tarik Dela Cruz, [facility] - 07/30/2024 3:42 PM ESTSigned Prescriptions: Disp Refills Sertraline HCl 50 MG Oral Tablet (Zoloft) 90 Tab*1 Sig: Take 1 Tablet by mouth in the morning. Authorizing Provider: KALPANA PERES Ordering User: TARIK DELA CRUZ * Telephone Encounter - Tarik Dela Cruz [facility] - 07/30/2024 3:42 PM ESTSigned Prescriptions: Disp Refills Sertraline HCl 50 MG Oral Tablet (Zoloft) 90 Tab*1 Sig: Take 1 Tablet by mouth in the morning. Authorizing Provider: KALPANA PERES Ordering User: TARIK DELA CRUZ * Telephone Encounter - Natasha Ayers, medical clerical assistant - 07/30/2024 3:37 PM EST Did you pend patient's preferred pharmacy and medication before forwarding?yes Pharmacy: [facility] Pending Prescriptions: Disp Refills Sertraline HCl 50 MG Oral Tablet (Zoloft) 90 Tab*0 Sig: Take 1 Tablet by mouth in the morning. Last Visit: 07/12/2024 (in office), Visit date not found (telemedicine) Next Visit: 12/25/2024 If no future appointments scheduled, and last appointment is greater than a year ago, please schedule patient for a follow-up appointment Last date the medication was ordered: 05/08/2024 Is this request for a controlled substance?No Urine Drug Screen:No results found. However, due to the size of the patient record, not all encounters were searched. Please check Results Review for a complete set of results. Patient Phone Numbers Labs: Lab Results Component Value Date/Time CREAT 1.0 07/12/2024 11:56 AM CREAT 0.93 11/05/2022 12:00 AM CREAT 1.0 10/24/2019 09:16 AM POTASSIUM 4.8 07/12/2024 11:56 AM POTASSIUM 3.5 11/05/2022 12:00 AM POTASSIUM 4.6 10/24/2019 09:16 AM TSH 1.94 03/26/2024 10:09 AM TSH 1.57 10/24/2019 09:16 AM LDL 63 08/22/2023 09:32 AM LDL 80 10/29/2020 10:34 AM LDL 74 10/24/2019 09:16 AM LDL NOT APPLICABLE 10/24/2019 09:16 AM ALT 27 07/12/2024 11:56 AM ALT 20 10/24/2019 09:16 AM documented in this encounter Plan of Treatment Upcoming Encounters Date Type Department Care Team (Late st Contact Info) Description 09/05/2024 10:00 AM EST Office Visit Ophthalmology, [facility] [address] [place] [address] Mau Deleon DO [address] [place] [address] 09/12/2024 10:30 AM EST Office Visit Orthopaedics [address] [phone] Edwin Staples MD [address] [place] [address] 09/18/2024 8:30 AM EST Appointment Vascular Lab [address] [address] 09/18/2024 9:00 AM EST Office Visit Vascular Surg [address] [address] Clayton Lee MD [facility] [place] [address] 09/19/2024 10:30 AM EST Office Visit Orthopaedics [address] [phone] Edwin Staples MD [address] [place] [address] 09/26/2024 10:30 AM EST Office Visit Orthopaedics [address] [phone] Edwin Staples MD [address] [place] [address] 10/08/2024 9:30 AM EST Office Visit Cardiology [address] [place] [address] Jesus Alberto Montiel PA-C [address] [place] [address] 12/25/2024 8:40 AM EDT Office Visit Family Medicine [address] [phone] Kalpana Peres MD [address] [place] [address] [place] [address] Health Maintenance Due Date Last Done Comments DISCUSS TOBACCO CESSATION (REFER TO SMARTSET #1004) 1935 Alpha-1 Antitrypsin 11/23/1953 Depression Screening 04/23/2021 [...] this encounter Medical Devices Implanted Type Area Rehab Office Coordinator Device Identifier Shelf Expiration Date Model / Serial / Lot Graft Aaa Bif [id number] - [id number] - [id number] Implanted:Qty: 1 on 02/13/2015 by Clayton Lee MD [place] [facility] Aorta [employer] : VASCULAR 12/02/2016 [id number] / [id number] / Limb Contralat [id number] - [id number] - [id number] Implanted:Qty: 1 on 02/13/2015 by Clayton Lee MD at [place] [facility] Aorta [employer] : VASCULAR 11/19/2016 [id number] / [id number] / Limb Contralat [id number] - [id number] - [id number] Implanted:Qty: 1 on 02/13/2015 by Clayton Lee MD at [place] [facility] Aorta [employer] : VASCULAR [id number] / [id number] / Plug Vasc Ampl 16mm 9-Plug-016 - [id number] Implanted:Qty: 1 on 02/13/2015 by Clayton Lee MD at [place] [facility] Aorta [employer] MEDICAL TREVON 9-PLUG-0 16 / / documented as of this encounter Visit Diagnoses Diagnosis Anxiety Anxiety state, unspecified documented in this encounter Advance Directives [...] and were consensually agreed upon. Care Teams Webbing Seamer Pound Net Relationship Specialty Start Date End Date Kalpana Peres MD [address] [place] [address] [place] [phone] PCP - General Family Medicine 12/13/23 documented as of this encounter
--- OUTSIDE RECORDS SUMMARY | 2024-12-03 16:55 | External Medical Summary | Summary of Care ---
Author Name Unknown Organization [facility] Address [address] [facility] [address] Phone [phone] Care Team Providers Care Electrode Turner And Finisher Name Role Phone Fran Peres MD Primary Care Provide r Reason for Visit * Reason Comments Follow Up B/l knee Knee Pain Encounter Details Date Type Department Care Team (Latest Contact Info) Description 06/27/2024 9:30 AM EDT Office Visit Orthopaedics [address] [phone] Edwin Staples MD [address] [place] [address] Primary 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 of both knees*; Knee effusion, left; Knee effusion, right Allergies No known active allergiesdocumented as of this encounter (statuses as of 06/27/2024) Medications Medication Sig Dispensed Refills Start Date [...] :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),Homozygous MTHFR mutation M7303T,Hx pulmonary embolism Take 1 Tablet by mouth [...] Release 24 Hour (toPROL XL)Indications:Ather osclerosis of [place] coronary artery of [place] heart without angina pectoris TAKE 1 TABLET [...] as of this encounter (statuses as of 06/27/2024) Active Problems Problem Noted Date Diagnosed Date Other emphysema 12/13/2023 BMI 26.0-26.9,adult 11/08/2022 Emphysema of lung 07/07/2021 Aortic root dilatation 07/07/2021 Ascending aortic aneurysm 07/07/2021 Nonrheumatic mitral valve regurgitation 07/07/20 CKD (chronic kidney disease), stage II Overview: EGFR 66.5 Hx pulmonary embolism 07/16/2020 Primary 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 of both knees 08/01/2019 [facility] current use of 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 0 03/04/2019 Actinic keratosis 12/12/2018 Atherosclerosis of [place] 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[place] heart without angina pectoris 04/19/2018 Abdominal aortic aneurysm without rupture 2015 Homozygous MTHFR mutation Q5379G 09/14/2015 Factor V 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 12/30/2013 Overview: [...] as of this encounter (statuses as of 06/27/2024) Resolved Problems Problem Noted Date Diagnosed Date [...] as of this encounter (statuses as of 06/27/2024) Immunizations Name Administration Dates Next Due COVID-19 [...] Staples MD - 06/27/2024 9:26 AM EDT Jeff Powers [id number] Jeff Powers is a 88 year old male who presents for f/u to [facility] for bilateral knee [...] of both eyes with active choroidal neovascularization ([facility]) Exudative age-related macular degeneration of right eye with active choroidal neovascularization ([facility]) Factor V 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 ([facility]) 12/30/2013 has one copy of Factor V 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 Generalized 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 GERD (gastroesophageal reflux disease) Herpes zoster 08/05/2008 left forehead 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 V9529L 09/18/2015 [facility] HTN, goal below 140/90 Iliac artery thrombosis, 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 PROCEDURE NOTE: KNEE ASPIRATION/INJECTION Laterality: Bilateral Time [...] Staples MD Sports Medicine Primary Care Orthopaedics [address] [place] [address] documented in this encounter Nursing Notes * Cornelia Doan LPN - 06/27/2024 9:31 AM EDT F/u B/l knee pain -Pt received THIRD of series of Gelsyn injections on 10/26/23 -steroid injection today?? -Pt unsure which injections he had longer benefit from: gel or steroid injections -Pt accompanied by his today Rashmi Dane SOFIA documented in this encounter Plan of Treatment Upcoming Encounters Date Type Department Care Team (Late st Contact Info) Description 07/09/2024 8:15 AM EDT Office Visit Ophthalmology, [facility] [address] [place] [address] Mau Deleon, [address] [place] [address] 07/12/2024 11:40 AM EDT Office Visit Family Medicine [address] [phone] [address] [place] [address] 09/12/2024 10:30 AM EST Office Visit Orthopaedics [address] [phone] Edwin Staples MD [address] [place] [address] 09/18/2024 8:30 AM EST Appointment Vascular Lab [address] [phone] 09/18/2024 9:00 AM EST Office Visit Vascular Surg [facility] [address] [place] [address] Clayton Lee MD [address] [facility] [place] [address] 09/19/2024 10:30 AM EST Office Visit Orthopaedics [address] [phone] Edwin Staples MD [address] [place] [address] 09/26/2024 10:30 AM EST Office Visit Orthopaedics [address] [phone] Edwin Staples MD [address] [place] [address] 10/08/2024 9:30 AM EST Office Visit Cardiology [address] [place] [address] Jesus Alberto Montiel PA-C [address] [place] [address] 12/25/2024 8:40 AM EDT Office Visit Family Medicine [address] [phone] Fran Peres MD [address] [place] [address] [place] [address] Pending Results Name Type Priority Associated Diagnoses Date /Time CELL COUNT WITH DIFFERENTIAL, SYNOVIAL FLUID Lab Routine Knee effusion, left 06/27/2024 11:22 AM EDT CRYSTAL ANALYSIS, BODY FLUID Lab Routine Knee effusion, left 06/27/2024 11:22 AM EDT CELL COUNT, SYNOVIAL FLUID Lab Routine Knee effusion, left 06/27/2024 11:22 AM EDT MANUAL DIFFERENTIAL, SYNOVIAL FLUID Lab Routine Knee effusion, left 06/27/2024 11:22 AM EDT Scheduled Orders Name Type Priority Associated Diagnoses Orde r Schedule POINT OF CARE US MAJOR JOINT INJECTION, ORTHO Medical Imaging Routine Primary 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 of both knees Knee effusion, left Knee effusion, right Ordered: 06/27/2024 CELL COUNT WITH DIFFERENTIAL, SYNOVIAL FLUID Lab Routine Knee effusion, left Expected: 06/27/2024, Expires: 06/27/2025 CRYSTAL ANALYSIS, BODY FLUID Lab Routine Knee effusion, left Expected: 06/27/2024, Expires: 06/27/2025 Health Maintenance Due Date Last Done Comments DISCUSS TOBACCO CESSATION (REFER TO SMARTSET #6725) 1935 Alpha-1 Antitrypsin 11/23/1953 Depression Screening 04/23/2021 [...] this encounter Medical Devices Implanted Type Area Amortization Clerk Device Identifier Shelf Expiration Date Model / Serial / Lot Graft Aaa Bif [id number] - [id number] - [id number] Implanted:Qty: 1 on 02/13/2015 by Clayton Lee MD at OR [facility] Aorta [employer] : VASCULAR 12/02/2016 [id number] / [id number] / Limb Contralat [id number] - [id number] - [id number] Implanted:Qty: 1 on 02/13/2015 by Clayton Lee MD at OR [facility] Aorta [employer] : VASCULAR 11/19/2016 [id number] E / [id number] / Limb Contralat [id number] - [id number] - [id number] Implanted:Qty: 1 on 02/13/2015 by Clayton Lee MD at OR [facility] Aorta [employer] : VASCULAR [id number] / [id number] / Plug Vasc Ampl 16mm 9-Plug-016 - [id number] Implanted:Qty: 1 on 02/13/2015 by Clayton Lee MD at OR [facility] Aorta Spout TREVON 9-PLUG-0 16 / / documented as [...] and were consensually agreed upon. Care Teams Electrode Turner And Finisher Relationship Specialty Start Date End Date Fran Peres MD [address] [place] [address] [place] [address] PCP - General Family Medicine 12/13/23 documented as of this encounter
--- OUTSIDE RECORDS SUMMARY | 2024-12-03 16:55 | External Medical Summary | Summary of Care ---
Author Name Unknown Organization [facility] Address [address] [facility] [address] Phone [phone] Care Team Providers Care Intervention Nurse Name Role Phone Fran Peres MD Primary Care Provide r Reason for Visit * Reason Comments Medication Refill Encounter Details Date Type Department Care Team (Late st Contact Info) Description 08/22/2024 Refill Family Medicine [address] [place] [phone] Naa Darling MD [address] [place] [address] [place] [address] Coronary artery calcification Allergies No known active allergiesdocumented as of this encounter (statuses as of 08/22/2024) Medications Cyanocobalamin (VITAMIN B-12) 6000 MCG SUBL [...] ons: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),Homozygous MTHFR mutation U8413W,Hx pulmonary embolism Take 1 Tablet by mouth [...] Release 24 Hour (toPROL XL)Indications:At herosclerosis of [place] coronary artery of [place] heart without angina pectoris TAKE 1 TABLET BY MOUTH EVERY EVENING 100 Tablet 1 06/04/2024 8:03 AM EDT 4 Active Clopidogrel Bisulfate 75 MG Oral [...] 1 07/30/2024 5:54 PM EST 4 Active Isosorbide Mononitrate ER 30 MG Oral Tablet Extended Release 24 Hour (Imdur)Indication s:Coronary artery calcification Take one-half Tablet by mouth in the morning. 50 Tablet 3 4 Active Hospital, Clinic, or Other Facility Administered [...] as of this encounter (statuses as of 08/22/2024) Active Problems Problem Noted Date Diagnosed Date Other emphysema 12/13/2023 BMI 26.0-26.9,adult 11/08/2022 Emphysema of lung 07/07/2021 Aortic root dilatation 07/07/2021 Ascending aortic aneurysm 07/07/2021 Nonrheumatic mitral valve regurgitation 07/07/20 21 CKD (chronic kidney disease), stage II 1 Overview (04/29/2021): EGFR 66.5 Hx pulmonary embolism 07/16/2020 Primary 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 of both knees 08/01/2019 halfway current use of 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 0 03/04/2019 Actinic keratosis 12/12/2018 Atherosclerosis of [place] 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[place] heart without angina pectoris 04/19/2018 Abdominal aortic aneurysm without rupture 2015 Homozygous MTHFR mutation Z0154M 09/14/2015 Factor V 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 12/30/2013 Overview (12/30/2013): has one copy of Factor V 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 Mixed dyslipidemia 11/25/2009 GENERAL OSTEOARTHROSIS Tobacco use disorder Exudative age-related macula r degeneration of both eyes with active choroidal neovascularization documented as of this encounter (statuses as of 08/22/2024) Resolved Problems Problem Noted Date Diagnosed Date [...] as of this encounter (statuses as of 08/22/2024) Immunizations Name Administration Dates Next Due COVID-19 [...] encounter Miscellaneous Notes * Telephone Encounter - Naa Darling MD - 08/22/2024 8:11 AM ESTSigned Prescriptions: Disp Refills Isosorbide Mononitrate ER 30 MG Oral Table*50 Tab*3 Sig: Take one-half Tablet by mouth in the morning.Authorizing Provider: NAA DARLING documented in this encounter Plan of Treatment Upcoming Encounters Date Type Department Care Team (Late st Contact Info) Description 09/05/2024 10:00 AM EST Office Visit Ophthalmology, [facility] [address] [place] [address] Mau Deleon DO [address] [place] [address] 09/12/2024 10:30 AM EST Office Visit Orthopaedics [address] [phone] Edwin Staples MD [address] [place] [address] 09/19/2024 10:30 AM EST Office Visit Orthopaedics [address] [phone] Edwin Staples MD [address] [place] [address] 09/25/2024 9:00 AM EST Imaging Vascular Lab, [address] [facility] [place] [address] 09/26/2024 10:30 AM EST Office Visit Orthopaedics [address] [phone] Edwin Staples MD [address] [place] [address] 10/02/2024 11:50 AM EST Office Visit Vascular Surgery, [facility] [address] [place] [address] Walt Raphael MD [address] [place] [address] 10/08/2024 9:30 AM EST Office Visit Cardiology [address] [place] [address] Jesus Alberto Montiel PA-Shaun [address] [place] [address] 12/25/2024 8:40 AM EDT Office Visit Family Medicine [address] [place] [phone] Fran Peres MD [address] [place] [address] [place] [address] Health Maintenance Due Date Last Done Comments DISCUSS TOBACCO CESSATION (REFER TO SMARTSET #5404) 1935 Alpha-1 Antitrypsin 11/23/1953 Depression Screening 04/23/2021 [...] this encounter Medical Devices Implanted Type Area Patient Educator Device Identifier Shelf Expiration Date Model / Serial / Lot Graft Aaa Bif [id number] - [id number] - [id number] Implanted:Qty: 1 on 02/13/2015 by Clayton [place] [facility] Aorta [employer] : VASCULAR 12/02/2016 [id number] / [id number] / Limb Contralat [id number] - [id number] - [id number] Implanted:Qty: 1 on 02/13/2015 by Clayton Lee MD [place] [facility] Aorta [employer] : VASCULAR 11/19/2016 [id number] / [id number] / Limb Contralat [id number] - [id number] - [id number] Implanted:Qty: 1 on 02/13/2015 by Clayton Lee MD [place] [facility] Aorta [employer] : VASCULAR [id number] / [id number] / Plug Vasc Ampl 16mm 9-Plug-016 - [id number] Implanted:Qty: 1 on 02/13/2015 by Clayton Lee MD [place] [facility] Aorta Yesmail 9-PLUG-0 16 / / documented as of this encounter Visit Diagnoses Diagnosis Coronary artery calcification Coronary atherosclerosis of unspecified type of vessel, [place] or graft documented in this encounter Advance Directives * [...] and were consensually agreed upon. Care Teams Intervention Nurse Relationship Specialty Start Date End Date Fran Peres MD [address] [place] [address] [place] [address] PCP - General Family Medicine 12/13/23 documented as of this encounter
--- OUTSIDE RECORDS SUMMARY | 2024-12-03 16:55 | External Medical Summary | Summary of Care ---
Author Name Unknown Organization [facility] Address [address] [facility] [address] Phone [phone] Care Team Providers Care Inspector Watch Train Name Role Phone Fran Peres MD Primary Care Provide r Reason for Visit * Reason Comments Follow Up B/l knee Knee Pain Encounter Details Date Type Department Care Team (Latest Contact Info) Description 06/27/2024 9:30 AM EDT Office Visit Orthopaedics [address] [phone] Edwin Staples MD [address] [place] [address] Primary 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 of both knees*; Knee effusion, [...] :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),Homozygous MTHFR mutation R6557I,Hx pulmonary embolism Take 1 Tablet by mouth [...] Release 24 Hour (toPROL XL)Indications:Ather osclerosis of [place] coronary artery of [place] heart without angina pectoris TAKE 1 TABLET [...] knees 10 mg IX ONCE 06/27/2024 06/27/2024 Active Triamcinolone Acetonide (Kenalog) 40 MG/ML inj 40 mgIndications:Primary 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 of both knees 40 mg IX ONCE 06/27/2024 06/27/2024 Active lidocaine 1 % inj 10 mgIndications:Primary 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 of both knees 10 mg IX ONCE 06/27/2024 06/27/2024 Active Triamcinolone Acetonide (Kenalog) 40 MG/ML inj 40 mgIndications:Primary 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 of both knees 40 mg IX ONCE 06/27/2024 06/27/2024 Active documented as of this encounter (statuses [...] 0 03/04/2019 Actinic keratosis 12/12/2018 Atherosclerosis of [place] 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[place] heart without angina pectoris 04/19/2018 Abdominal aortic aneurysm without rupture 2015 Homozygous MTHFR mutation 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 09/14/2015 Factor V 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 12/30/2013 Overview: [...] of pulmonary artery 12/23/2013 04/19/2018 Overview: Admitted [place] Encounter for examination fo r normal comparison [...] - 06/27/2024 9:26 AM EDT Jeff Powers [id number] Jeff Powers is a 88 year old male who presents for f/u to [facility] for bilateral [...] of both eyes with active choroidal neovascularization ([facility]) Exudative age-related macular degeneration of right eye with active choroidal neovascularization ([facility]) Factor V 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 ([facility]) 12/30/2013 has one copy of Factor V 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 Generalized 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 GERD (gastroesophageal reflux disease) Herpes zoster 08/05/2008 left forehead 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 09/18/2015 [facility] HTN, goal below 140/90 Iliac artery thrombosis, 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 [facility] Internal hemorrhoids 07/24/2007 Macular degeneration (senile) of retina 06/26/2014 Nonexudative age-related macular degeneration, bilateral, intermediate dry stage Other seborrheic keratosis 06/17/2002 maulik-surgical removal under local anesthesia Saddle embolus of pulmonary artery ([facility]) 12/23/2013 Admitted [place] Tobacco use disorder Vitamin [...] Staples MD Sports Medicine Primary Care Orthopaedics [address] [place] [address] documented in this encounter Nursing Notes * [...] 07/09/2024 8:15 AM EDT Office Visit Ophthalmology, [facility] [address] [place] [address] Mau Deleon, [address] [place] [address] 07/12/2024 11:40 AM EDT Office Visit Family Medicine [address] [phone] Yaz Terry [address] [place] [address] 09/12/2024 10:30 AM EST Office Visit Orthopaedics [address] [phone] Edwin Staples MD [address] [place] [address] 09/18/2024 8:30 AM EST Appointment Vascular Lab [address] [phone] 09/18/2024 9:00 AM EST Office Visit Vascular Surg [facility] [address] [place] [address] Clayton Lee MD [address] [place] [facility] [place] [address] 09/19/2024 10:30 AM EST Office Visit Orthopaedics [address] [phone] Edwin Staples MD [address] [place] [address] 09/26/2024 10:30 AM EST Office Visit Orthopaedics [address] [phone] Edwin Staples MD [address] [place] [address] 10/08/2024 9:30 AM EST Office Visit Cardiology [address] [place] [address] Jesus Alberto Montiel PA-C [address] [place] [address] 12/25/2024 8:40 AM EDT Office Visit Family Medicine [address] [phone] Fran Peres MD [address] [place] [address] [place] [address] Pending Results Name Type Priority Associated Diagnoses [...] Comments DISCUSS TOBACCO CESSATION (REFER TO SMARTSET #[id number]) 1935 Alpha-1 Antitrypsin 11/23/1955 Depression Screening 04/23/2021 [...] this encounter Medical Devices Implanted Type Area Vacuum Spindle Sander Device Identifier Shelf Expiration Date Model / Serial / Lot Graft Aaa Bif [id number] - [id number] - [id number] Implanted:Qty: 1 on 02/13/2015 by Clayton Lee MD at OR [facility] Aorta [employer] : VASCULAR 12/02/2016 [id number] / [id number] / Limb Contralat [id number] - [id number] - [id number] Implanted:Qty: 1 on 02/13/2015 by Clayton Lee MD [place] [facility] Aorta [employer] : VASCULAR 11/19/2016 [id number] / [id number] / Limb Contralat [id number] - [id number] - [id number] Implanted:Qty: 1 on 02/13/2015 by Clayton Lee MD at [place] [facility] Aorta [employer] : VASCULAR [id number] / [id number] / Plug Vasc Ampl 16mm 9-Plug-016 - [id number] Implanted:Qty: 1 on 02/13/2015 by Clayton Lee MD at [place] [facility] Aorta [employer] MEDICAL TREVON 9-PLUG-0 16 / / documented as of this encounter Visit Diagnoses Diagnosis Primary 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 of both knees- Primary Primary localized osteoarthrosis, lower leg Knee effusion, left Effusion of lower leg joint Knee effusion, right Effusion of lower leg joint documented in this encounter Advance Directives * [...] and were consensually agreed upon. Care Teams Inspector Watch Train Relationship Specialty Start Date End Date Fran Peres MD [address] [place] [address] [place] [address] PCP - General Family Medicine 12/13/23 documented as of this encounter
--- OUTSIDE RECORDS SUMMARY | 2024-12-03 16:55 | External Medical Summary | Summary of Care ---
Author Name Unknown Organization [facility] Address [address] [facility] [address] Phone [phone] Care Team Providers Care Sales Correspondent Name Role Phone Fran Peres MD Primary Care Provide r Reason for Visit * Reason Onset Date Comments Test Results Lab 07/04/2024 Encounter Details Date Type Department Care Team (Late st Contact Info) Description 07/04/2024 Telephone Orthopaedics [address] [phone] Edwin Staples MD [address] [place] [address] Test Results Lab Allergies No known active allergiesdocumented as of [...] Solution (Duoneb)Indications: COPD, 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 determined ([facility]) Inhale 3 mL by mouth [...] Oral Tablet (Eliquis)Indications :Factor V 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 ([facility]),Homozygous MTHFR mutation B9114T,Hx pulmonary embolism Take 1 Tablet by mouth [...] Release 24 Hour (toPROL XL)Indications:Ather osclerosis of [place] coronary artery of [place] heart without angina pectoris TAKE 1 TABLET BY MOUTH EVERY EVENING 100 Tablet 1 06/02/2024 Active Clopidogrel Bisulfate 75 MG Oral Tablet (pLAVix)Indications: 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),Iliac artery thrombosis, left (HCC),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) TAKE ONE TABLET BY MOUTH EVERY MORNING 100 Tablet 3 06/25/2024 Active documented as of this encounter (statuses as of 07/04/2024) Active Problems Problem Noted Date Diagnosed Date Other emphysema 12/13/2023 BMI 26.0-26.9,adult 11/08/2022 Emphysema of lung 07/07/2021 Aortic root dilatation 07/07/2021 Ascending aortic aneurysm 07/07/2021 Nonrheumatic mitral valve regurgitation 07/07/20 21 CKD (chronic kidney disease), stage II Overview: EGFR 66.5 Hx pulmonary embolism 07/16/2020 Primary 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 of both knees 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 0 03/04/2019 Actinic keratosis 12/12/2018 Atherosclerosis of [place] 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[place] heart without angina pectoris 04/19/2018 Abdominal aortic aneurysm without rupture 2015 Homozygous MTHFR mutation [id number] 09/14/2015 Factor V Leiden mutation 12/30/2013 Overview: [...] embolus of pulmonary artery 12/23/2013 04/19/2018 Overview: [place] Encounter for examination fo r [...] encounter Miscellaneous Notes * Telephone Encounter - Edwin Staples MD - 07/04/2024 12:52 PM EDT Spoke with the patient's today 07/04/2024 regarding labs from his knee aspiration which showedmonosodium urate crystals indicating gout. Patient's would like to start evaluations this through his PCP Dr. Larisa MARCOS rather than received referral to Rheumatology. Staff message sent to Dr. Larisa MARCOS to alert him. Staff message also sent to the front desk clerk toask them to schedule him for new evaluation of gout. documented in this encounter Plan of Treatment Upcoming Encounters Date Type Department Care Team (Late st Contact Info) Description 07/09/2024 8:15 AM EDT Office Visit Ophthalmology, [facility] [address] [place] [address] Mau Deleon DO [address] [place] [address] 07/12/2024 11:40 AM EDT Office Visit Family Medicine [address] [phone] Yaz [address] [place] [address] 09/12/2024 10:30 AM EST Office Visit Orthopaedics [address] [phone] Edwin Staples MD [address] [place] [address] 09/18/2024 8:30 AM EST Appointment Vascular Lab [address] [address] 09/18/2024 9:00 AM EST Office Visit Vascular Surg [address] [address] Clayton Lee MD Formerly named [facility] [place] [address] 09/19/2024 10:30 AM EST Office Visit Orthopaedics [address] [place] [phone] Edwin Staples MD [address] [place] [address] 09/26/2024 10:30 AM EST Office Visit Orthopaedics [address] [place] [phone] Edwin Staples MD [address] [place] [address] 10/08/2024 9:30 AM EST Office Visit Cardiology [address] [place] [address] Jesus Alberto Montiel PA-C [address] [place] [address] 12/25/2024 8:40 AM EDT Office Visit Family Medicine [address] [place] [phone] Fran Peres MD [address] [place] [address] [place] [address] Health Maintenance Due Date Last Done Comments [...] this encounter Medical Devices Implanted Type Area Systems Operator Device Identifier Shelf Expiration Date Model / Serial / Lot Graft Aaa Bif [id number] - [id number] - [id number] Implanted:Qty: 1 on 02/13/2015 by Clayton Lee MD [place] [facility] [place]orta [employer] : VASCULAR 12/02/2016 [id number] / [id number] / Limb Contralat [id number] - [id number] - [id number] Implanted:Qty: 1 on 02/13/2015 by Clayton Lee MD [place] [facility] [place]orta [employer] : VASCULAR 11/19/2016 [id number] / [id number] / Limb Contralat [id number] - [id number] - [id number] Implanted:Qty: 1 on 02/13/2015 by Clayton Lee MD [place] [facility] [place]orta [employer] : VASCULAR [id number] / [id number] / Plug Vasc Ampl 16mm 9-Plug-016 - [id number] Implanted:Qty: 1 on 02/13/2015 by Clayton Lee MD [place] [facility] [place]orta [employer] TREVON 9-PLUG-0 16 / / documented as of this encounter Visit Diagnoses Diagnosis Primary 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 of both knees- Primary Primary localized osteoarthrosis, lower leg Gout of knee, unspecified cause, unspecified chronicity, [...] were consensually agreed upon. Care Teams Sales Correspondent Relationship Specialty Start Date End Date Fran Peres MD [address] [place] [address] [place] [address] PCP - General Family Medicine 12/13/23 documented as of this encounter
--- OUTSIDE RECORDS SUMMARY | 2024-12-03 16:55 | External Medical Summary | Summary of Care ---
Author Name Unknown Organization [facility] Address [address] [facility] [address] Phone [phone] Care Team Providers Care Hand Shaker Name Role Phone Fran Peres MD Primary Care Provide r Reason for Visit * Reason Comments Outpatient Testing Encounter Details Date Type Department Care Team (Late st Contact Info) Description 07/12/2024 12:10 PM EDT Laboratory Laboratory [address] [place] [phone] [place] [address] Gouty arthropathy Allergies No known active allergiesdocumented as of this encounter (statuses as of 07/12/2024) Medications Medication Sig Dispensed Refills Start Date [...] Solution (Duoneb)Indications: COPD, 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 determined ([facility]) Inhale 3 mL by mouth [...] Oral Tablet (Eliquis)Indications :Factor V Leiden mutation ([facility]),Homozygous MTHFR mutation S2021X,Hx pulmonary embolism Take 1 Tablet by mouth [...] Release 24 Hour (toPROL XL)Indications:Ather osclerosis of [place] coronary artery of [place] heart without angina pectoris TAKE 1 TABLET BY MOUTH EVERY EVENING 100 Tablet 1 06/02/2024 Active Clopidogrel Bisulfate 75 MG Oral Tablet (pLAVix)Indications: Factor V Leiden mutation ([facility]),Iliac artery thrombosis, left (HCC),Infrarenal abdominal aortic aneurysm (AAA) without rupture ([facility]) TAKE ONE TABLET BY MOUTH EVERY MORNING 100 Tablet 3 06/25/2024 Active Colchicine 0.6 MG Oral TabletIndications:Go uty arthropathy Take 1 Tablet by mouth in the morning and 1 Tablet before bedtime. 60 Tablet 5 07/12/2024 Active Allopurinol 100 MG Oral Tablet (Zyloprim)Indication s:Gouty arthropathy Take 1 Tablet by mouth in the morning. 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 0 03/04/2019 Actinic keratosis 12/12/2018 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 without angina pectoris 04/19/2018 Abdominal aortic aneurysm without rupture 2015 Homozygous MTHFR mutation W2327L 09/14/2015 Factor V Leiden mutation 12/30/2013 Overview: [...] as of this encounter (statuses as of 07/12/2024) Resolved Problems Problem Noted Date Diagnosed Date [...] of pulmonary artery 12/23/2013 04/19/2018 Overview: Admitted [place] Encounter for examination fo r normal comparison [...] as of this encounter (statuses as of 07/12/2024) Immunizations Name Administration Dates Next Due COVID-19 [...] 09/12/2024 10:30 AM EST Office Visit Orthopaedics [address] [phone] Edwin Staples MD [address] [place] [address] 09/18/2024 8:30 AM EST Appointment Vascular Lab [place] [address] [place] [address] 09/18/2024 9:00 AM EST Office Visit Vascular Surg [place] [address] [place] [address] Clayton Lee MD [address] [place] [address] 09/19/2024 10:30 AM EST Office Visit Orthopaedics [address] [phone] Edwin Satples MD [address] [place] [address] 09/26/2024 10:30 AM EST Office Visit Orthopaedics [address] [phone] Edwin Staples MD [address] [place] [address] 10/08/2024 9:30 AM EST Office Visit Cardiology [address] [place] [address] Jesus Alberto Montiel PA-C [address] [place] [address] 12/25/2024 8:40 AM EDT Office Visit Family Medicine [address] [place] [phone] Fran Peres MD [address] [place] [address] [place] [address] Pending Results Name Type Priority Associated Diagnoses Date /Time COMPREHENSIVE METABOLIC PANEL Lab Routine Gouty arthropathy 07/12/2024 11:56 AM EDT URIC ACID Lab Routine Gouty arthropathy 07/12/2024 11:56 AM EDT Health Maintenance Due Date Last Done Comments DISCUSS TOBACCO CESSATION (REFER TO SMARTSET #4944) 1935 Alpha-1 Antitrypsin 11/23/1955 Depression Screening 04/23/2021 [...] this encounter Medical Devices Implanted Type Area Co Teacher Device Identifier Shelf Expiration Date Model / Serial / Lot Graft Aaa Bif [id number] - [id number] - [id number] Implanted:Qty: 1 on 02/13/2015 by Clayton [place] [facility] [place]orta [employer] : VASCULAR 12/02/2016 [id number] / [id number] / Limb Contralat [id number] - [id number] - [id number] Implanted:Qty: 1 on 02/13/2015 by Clayton Lee MD [place] [facility] [place] [employer] : VASCULAR 11/19/2016 [id number] E / [id number] / Limb Contralat [id number] - [id number] - [id number] Implanted:Qty: 1 on 02/13/2015 by Clayton Lee MD [place] [facility] [place] [employer] : VASCULAR [id number] / [id number] / Plug Vasc Ampl 16mm 9-Plug-016 - [id number] Implanted:Qty: 1 on 02/13/2015 by Clayton Lee MD [place] [facility]orta [employer] TREVON 9-PLUG-0 16 / / documented as [...] were consensually agreed upon. Care Teams Hand Shaker Relationship Specialty Start Date End Date Fran Peres MD [address] [place] [address] [place] [address] PCP - General Family Medicine 12/13/23 documented as of this encounter
--- OUTSIDE RECORDS SUMMARY | 2024-12-03 16:55 | External Medical Summary | Summary of Care ---
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) Procedures INJECTION OF EYE DRUG AFLIBERCEPT IO SOLN, PER 1MG, INJ Mau Deleon, DO [address] [place] [address] Referral ID Status Reason Start Date Expiration Date V isits Requested Visits Authorized [id number] Authorized Precert 03/05/2020 09/10/2099 99 99 Encounter Details Date Type Department Care Team (Late st Contact Info) Description 07/09/2024 8:15 AM EDT Office Visit Ophthalmology, [facility] [address] [place] [address] Mau Deleon DO [address] [place] [address] 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)* Allergies No known active allergiesdocumented as of this encounter (statuses as of 07/09/2024) Medications Medication Sig Dispensed Refills Start Date [...] :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),Homozygous MTHFR mutation Z8726M,Hx pulmonary embolism Take 1 Tablet by mouth [...] Release 24 Hour (toPROL XL)Indications:Ather osclerosis of [place] coronary artery of [place] heart without angina pectoris TAKE 1 TABLET [...] as of this encounter (statuses as of 07/09/2024) Active Problems Problem Noted Date Diagnosed Date Other emphysema 12/13/2023 BMI 26.0-26.9,adult 11/08/2022 Emphysema of lung 07/07/2021 Aortic root dilatation 07/07/2021 Ascending aortic aneurysm 07/07/2021 Nonrheumatic mitral valve regurgitation 07/07/20 CKD (chronic kidney disease), stage II Overview: EGFR 66.5 Hx pulmonary embolism 07/16/2020 Primary 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 of both knees 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 0 03/04/2019 Actinic keratosis 12/12/2018 Atherosclerosis of [place] 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[place] heart without angina pectoris 04/19/2018 Abdominal aortic aneurysm without rupture 2015 Homozygous MTHFR mutation U6678R 09/14/2015 Factor V Leiden mutation 12/30/2013 Overview: [...] as of this encounter (statuses as of 07/09/2024) Resolved Problems Problem Noted Date Diagnosed Date [...] of pulmonary artery 12/23/2013 04/19/2018 Overview: Admitted [place] Encounter for examination fo r normal comparison [...] as of this encounter (statuses as of 07/09/2024) Immunizations Name Administration Dates Next Due COVID-19 [...] of this encounter Progress Notes * Mau Deleon, DO - 07/09/2024 8:15 AM EDT [facility] [place] Nursing Notes: Merissa Seymour TECH 07/09/24 0815 Signed Jeff Powers is a 88 year old year old male who presents for Exud. AMD OU. Last Office Visit: 05/14/2024 (in office), Visit date not found (telemedicine) Patient currently states some days are good, some days are worse. Uses a magnifying glass for smallprint. Are you diabetic? No Do you drive? yes OCT image(s) of both eyes acquired and filed/scanned into chart. Base Eye Exam Visual Acuity (Snellen - Linear) Right Left Dist sc 20/100 -1 20/200 -2 Dist ph sc 20/50 -2 NI Tonometry (Tonopen, 8:14 AM) Right Left Pressure 15 21 Pupils Dark Shape React APD Right 4 Round Brisk None Left 4.5 Round Slow None Visual Ponce (Counting fingers) Right Left Full Full Extraocular Movement Right Left Full Full Neuro/Psych Oriented x3: Yes Mood/Affect: Normal Dilation Both eyes: 0.5% Proparacaine @ 8:12 AM Dilation #2 Both eyes: 1.0% Mydriacyl, 2.5% Phenylephrine @ 8:13 AM Dilation #3 Both eyes: 1.0% Mydriacyl @ 8:15 AM Dilation Comments Patient cautioned that effects [...] 12/12/22, 09/29/22,07/28/22, 04/28/22, 01/20/22, 10/28/21, 04/22/21, 01/21/21, 2--21, -15-20, 03-05-20, --20, 07-25-19,--19, 01-17-19, --18, 05-08-18, 03-27-2018, -18-18, --18, 08-25-17, 17) - 8 weeks since last injection - s/p Eylea OS (05/14/24, 03/19/24, 12/21/23, 10/19/23, 08/17/23, 06/15/23, 04/11/23, 02/09/23, 12/12/22, 09/29/22,07/28/22, 04/28/22, 01/20/22, 10/28/21, 04/22/21, 01/21/21, 2--21, 06-25-20, 03-05-20, --20, 07-25-19,04-18-19, 01-17-19, --18, 05-08-18,-18-18, --18, 08-25-17, --17) - 8 weeks since last injection - worse at 11 weeks, prior worse at 19 weeks in past - on coumadin - recommend AREDS2 MVI as directed and Amsler grid qday 2. Pseudophakia OU -stable 3. S/p TAB for suspected GCA--was negative -currently not legal to drive at nightime, pt. understands, currently only drives daytime; has recent new glasses from [facility] refraction check; will get notes F/u 8-10 weeks - Dilate and OCT OU Mau Deleon DO PCP: oRni Kenyon MD TIMEOUT PROCEDURE: correct patient identity-YES [...] documented in this encounter Nursing Notes * Megha Carrillo MED ASSIST - 07/09/2024 8:40 AM EDT Jeff Powers to receive 33 Eylea 2mg Injection of the Left eye. Correct eye confirmed with patient and marked by Mau Deleon DO Eylea 2mg lot # [id number] Exp. Date: 07/2025 Jeff Powers to receive 34 Eylea 2mg Injection of the Right eye. Correct eye confirmed with patient and marked by Mau Deleon DO Eylea 2mg lot # [id number] Exp. Date: 07/2025 * Merissa Seymour TECH - 07/09/2024 8:04 AM EDT Jeff Powers is a 88 year old year old male who presents for Exud. AMD OU. Last Office Visit: 05/14/2024 (in office), Visit date not found (telemedicine) Patient currently states some days are good, some days are worse. Uses a magnifying glass for smallprint. Are you diabetic? No Do you drive? yes OCT image(s) of both eyes acquired and filed/scanned into chart. documented in this encounter Plan of Treatment Upcoming Encounters Date Type Department Care Team (Late st Contact Info) Description 07/12/2024 11:40 AM EDT Office Visit Family Medicine [address] [place] [phone] Yaz Terry CRNP [address] [place] [address] [place] [address] 09/12/2024 10:30 AM EST Office Visit Orthopaedics [address] [phone] Edwin Staples MD [address] [place] [address] 09/18/2024 8:30 AM EST Appointment Vascular Lab [facility], [place] [address] [place] [address] 09/18/2024 9:00 AM EST Office Visit Vascular Surg [place] [address] [place] [address] Clayton Lee MD [facility] [place], [place] [id number] 09/19/2024 10:30 AM EST Office Visit Orthopaedics [address] [phone] Edwin Staples MD [address] [place] [address] 09/26/2024 10:30 AM EST Office Visit Orthopaedics [address] [phone] Edwin Staples MD [address] [place] [address] 10/08/2024 9:30 AM EST Office Visit Cardiology [address] [place] [address] Jesus Alberto Montiel PAZeeC [address] [place] [address] 12/25/2024 8:40 AM EDT Office Visit Family Medicine [address] [phone] Fran Peres MD [address] [place] [address] [place] [address] Scheduled Orders Name Type Priority Associated Diagnoses Orde r Schedule RETINA SCAN DIAGNOSTIC IMAGE, POSTERIOR Procedures Routine 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) Ordered: 07/09/2024 Health Maintenance Due Date Last Done Comments DISCUSS TOBACCO CESSATION (REFER TO SMARTSET #0270) 1935 Alpha-1 Antitrypsin 11/23/1953 Depression Screening 04/23/2021 [...] this encounter Medical Devices Implanted Type Area Flat Sorter Processor Device Identifier Shelf Expiration Date Model / Serial / Lot Graft Aaa Bif [id number] - [id number] - [id number] Implanted:Qty: 1 on 02/13/2015 by Clayton Lee MD [place] [facility] [place] [employer] : VASCULAR 12/02/2016 [id number] / [id number] / Limb Contralat [id number] - [id number] - [id number] Implanted:Qty: 1 on 02/13/2015 by Clayton Lee MD at [place] [facility] [place] [employer] : VASCULAR 11/19/2016 [id number] / [id number] / Limb Contralat [id number] - [id number] - [id number] Implanted:Qty: 1 on 02/13/2015 by Clayton Lee MD at [place] [facility] [place] [employer] : VASCULAR [id number] / [id number] / Plug Vasc Ampl 16mm 9-Plug-016 - [id number] Implanted:Qty: 1 on 02/13/2015 by Clayton Lee MD at [place] [facility] [place] [email or web address] 9-PLUG-0 16 / / documented as of [...] 0914, Until Mon07/09/25 at 0913, For 365 days Given 07/09/2024 9:21 AM EDT 2 mg Eye Left Given 07/09/2024 9:20 AM EDT 2 mg Ey e Right ROPivacaine (Naropin) inj 1.5 mg 1.5 mg, Injection, PRN Other, Starting on Mon07/09/24 at 0914, Until Mon07/09/25 at 0913, For 365 days Given 07/09/2024 9:21 AM EDT 1.5 mg Eye Left Given 07/09/2024 9:20 AM EDT 1.5 mg Ey e Right documented in this encounter Advance Directives * [...] and were consensually agreed upon. Care Teams Trial Court Justice Relationship Specialty Start Date End Date Fran Peres MD [address] [place] [address] [place] [address] PCP - General Family Medicine 12/13/23 documented as of this encounter
--- OUTSIDE RECORDS SUMMARY | 2024-12-03 16:55 | External Medical Summary | Summary of Care ---
Author Name Unknown Organization [facility] Address [address] [facility] [place] [address] Phone [phone] Care Team Providers Care Trauma Nurse Name Role Phone Fran Peres MD Primary Care Provide r Reason for Visit * Reason Comments Follow Up Encounter Details Date Type Department Care Team (Late st Contact Info) Description 07/12/2024 11:40 AM EDT Office Visit Family Medicine [address] [place] [address] Yaz Terry [address] [place] [address] Gouty arthropathy* Allergies No known active allergiesdocumented as of [...] COPD, 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 determined ([facility]) Inhale 3 mL by mouth every 6 [...] (Eliquis)Indications :Factor V Leiden mutation ([facility]),Homozygous MTHFR mutation U7039F,Hx pulmonary embolism Take 1 Tablet by mouth [...] Release 24 Hour (toPROL XL)Indications:Ather osclerosis of [place] coronary artery of [place] heart without angina pectoris TAKE 1 TABLET BY MOUTH EVERY EVENING 100 Tablet 1 06/02/2024 Active Clopidogrel Bisulfate 75 MG Oral Tablet (pLAVix)Indications: Factor V Leiden mutation ([facility]),Iliac artery thrombosis, left (HCC),Infrarenal abdominal aortic aneurysm (AAA) without rupture ([facility]) TAKE ONE TABLET BY MOUTH EVERY MORNING [...] 0 03/04/2019 Actinic keratosis 12/12/2018 Atherosclerosis of [place] 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[place] heart without angina pectoris 04/19/2018 Abdominal aortic aneurysm without rupture 2015 Homozygous MTHFR mutation H8196T 09/14/2015 Factor V Leiden mutation 12/30/2013 Overview: [...] Sign Reading Time Taken Comments Blood Pressure 124/82 07/12/2024 11:56 AM EDT Pulse 90 07/12/2024 11:36 AM EDT Temperature - - Respiratory Rate - - Oxygen Saturation 94% 07/12/2024 11: 36 AM EDT Inhaled Oxygen Concentration - - Weight 109.7 kg (241 lb 12.8 oz) 2023 11:36 AM EDT Height - - Body Mass Index 27.94 10/12/2023 9:39 AM EST documented in this encounter Plan of Treatment Upcoming Encounters Date Type Department Care Team (Late st Contact Info) Description 09/12/2024 10:30 AM EST Office Visit Orthopaedic[address] [phone] Edwin Staples MD [address] [place] [address] 09/18/2024 8:30 AM EST Appointment Vascular Lab [place] [address] [place] [address] 09/18/2024 9:00 AM EST Office Visit Vascular Surg [place] [address] [place] [address] Clayton Lee MD [address] [place] [address] 09/19/2024 10:30 AM EST Office Visit Orthopaedics [address] [place] [address] Edwin Staples MD [address] [place] [address] 09/26/2024 10:30 AM EST Office Visit Orthopaedics [address] [place] [address] Edwin Staples MD [address] [place] [address] 10/08/2024 9:30 AM EST Office Visit Cardiology [address] [place] [address] Jesus Alberto Montiel PA-C [address] [place] [address] 12/25/2024 8:40 AM EDT Office Visit Family Medicine [address] [place] [address] Fran Peres MD [address] [place] [address] [place] [address] Pending Results Name Type Priority Associated Diagnoses Date /Time COMPREHENSIVE METABOLIC PANEL Lab Routine Gouty arthropathy 07/12/2024 11:56 AM EDT URIC ACID Lab Routine Gouty arthropathy 07/12/2024 11:56 AM EDT Scheduled Orders Name Type Priority Associated Diagnoses Orde r Schedule COMPREHENSIVE METABOLIC PANEL Lab Routine Gouty arthropathy Expected: 07/12/2024 (Approximate), Expires: 07/12/2025 URIC ACID Lab Routine Gouty arthropathy Expected: 07/12/2024 (Approximate), Expires: 07/12/2025 URIC ACID Lab Routine Gouty arthropathy Expected: 09/11/2024 (Approximate), Expires: 09/11/2024 BASIC METABOLIC PANEL Lab Routine Gouty arthropathy Expected: 09/11/2024 (Approximate), Expires: 07/12/2025 Health Maintenance Due Date Last Done Comments DISCUSS TOBACCO CESSATION (REFER TO SMARTSET #3999) 1935 Alpha-1 Antitrypsin 11/23/1953 Depression Screening 04/23/2021 [...] this encounter Medical Devices Implanted Type Area Statue Carver Device Identifier Shelf Expiration Date Model / Serial / Lot Graft Aaa Bif [id number] - [id number] - [id number] Implanted:Qty: 1 on 02/13/2015 [place] [facility] [place] [employer] : VASCULAR 12/02/2016 [id number] / [id number] / Limb Contralat [id number] - [id number] - [id number] Implanted:Qty: 1 on 02/13/2015 by Clayton [place] [facility] [place] [employer] : VASCULAR 11/19/2016 [id number] / [id number] / Limb Contralat [id number] - [id number] - [id number] Implanted:Qty: 1 on 02/13/2015 by Clayton Lee MD [place] [facility] [place] [employer] : VASCULAR [id number] / [id number] / Plug Vasc Ampl 16mm 9-Plug-016 - [id number] Implanted:Qty: 1 on 02/13/2015 by Clayton Lee MD [place] [facility] [place] [employer] MEDICAL TREVON 9-PLUG-0 16 / / documented as of this encounter Visit Diagnoses Diagnosis Gouty arthropathy- Primary Gouty arthropathy, unspecified documented in this encounter [...] and were consensually agreed upon. Care Teams Trauma Nurse Relationship Specialty Start Date End Date Fran Peres MD [address] [place] [address] [place] [address] PCP - General Family Medicine 12/13/23 documented as of this encounter
--- OUTSIDE RECORDS SUMMARY | 2024-12-03 16:55 | External Medical Summary | Summary of Care ---
Author Name Unknown Organization [facility] Address [address] [facility] [place] [address] Phone [phone] Care Team Providers Care Clinical Transformation Specialist Name Role Phone Fran Peres MD [...] DO [address] [place] [address] Referral ID Status Reason Start Date Expiration Date V isits Requested Visits Authorized [id number] Authorized Precert 03/05/2020 09/10/2099 99 99 Encounter Details Date Type Department Care Team (Late st Contact Info) Description 07/09/2024 8:15 AM EDT Office Visit Ophthalmology, [facility] [address] [place] [address] Mau Deleon DO [address] [place] [address] Exudative age-related macular degeneration of both eyes [...] :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),Homozygous MTHFR mutation E3725C,Hx pulmonary embolism Take 1 Tablet by mouth [...] Release 24 Hour (toPROL XL)Indications:Ather osclerosis of [place] coronary artery of [place] heart without angina pectoris TAKE 1 TABLET [...] Primary 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 of 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 Date: 07/2025 eJff Powers to receive 34 Eylea 2mg Injection of the Right eye. Correct eye confirmed with patient and marked by Mau Deleon DO Eylea 2mg lot # [id number] Exp. Date: 07/2025 * Merissa Seymour TECH [...] 11:40 AM EDT Office Visit Family Medicine [address] [place] [phone] Yaz Terry CRNP [address] [place] [address] [place] [address] 09/12/2024 10:30 AM EST Office Visit Orthopaedics [address] [phone] Edwin Staples MD [address] [place] [address] 09/18/2024 8:30 AM EST Appointment Vascular Lab [facility], [place] [address] [place] [address] 09/18/2024 9:00 AM EST Office Visit Vascular Surg [place] [address] [place] [address] Clayton Lee MD [facility] [place], [place] [id number] 09/19/2024 10:30 AM EST Office Visit Orthopaedics [address] [phone] Edwin Staples MD [address] [place] [address] 09/26/2024 10:30 AM EST Office Visit Orthopaedics [address] [phone] Edwin Staples MD [address] [place] [address] 10/08/2024 9:30 AM EST Office Visit Cardiology [address] [place] [address] Jesus Alberto Montiel PAZeeC [address] [place] [address] 12/25/2024 8:40 AM EDT Office Visit Family Medicine [address] [phone] Fran Peres MD [address] [place] [address] [place] [address] Scheduled Orders Name Type Priority Associated Diagnoses Orde r Schedule RETINA SCAN DIAGNOSTIC IMAGE, POSTERIOR Procedures Routine 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) Ordered: 07/09/2024 Health Maintenance Due Date Last Done Comments DISCUSS TOBACCO CESSATION (REFER TO SMARTSET #6899) 1935 Alpha-1 Antitrypsin 11/23/1953 Depression Screening 04/23/2021 [...] this encounter Medical Devices Implanted Type Area Chute Boss Device Identifier Shelf Expiration Date Model / Serial / Lot Graft Aaa Bif [id number] - [id number] - [id number] Implanted:Qty: 1 on 02/13/2015 by Clayton Lee MD at [place] [facility] [place]orta [employer] : VASCULAR 12/02/2016 [id number] / [id number] / Limb Contralat [id number] - [id number] - [id number] Implanted:Qty: 1 on 02/13/2015 by Clayton Lee MD at [place] [facility] [place] [employer] : VASCULAR 11/19/2016 [id number] / [id number] / Limb Contralat [id number] - [id number] - [id number] Implanted:Qty: 1 on 02/13/2015 by Clayton Lee MD at [place] [facility] [place] [employer] : VASCULAR [id number] / [id number] / Plug Vasc Ampl 16mm 9-Plug-016 - [id number] Implanted:Qty: 1 on 02/13/2015 by Clayton Lee MD at [place] [facility] [place]orta [employer] 9-PLUG-0 16 / / documented as of [...] and were consensually agreed upon. Care Teams Clinical Transformation Specialist Relationship Specialty Start Date End Date Fran Peres MD [address] [place] [address] [place] [address] PCP - General Family Medicine 12/13/23 documented as of this encounter
--- OUTSIDE RECORDS SUMMARY | 2024-12-03 16:56 | External Medical Summary | Summary of Care ---
Author Name Unknown Organization [facility] Address [address] [facility] [address] Phone [phone] Care Team Providers Care Criminalist Name Role Phone Fran Peres MD Primary Care Provide r Reason for Visit * Reason Comments Follow Up B/l knee Knee Pain Encounter Details Date Type Department Care Team (Latest Contact Info) Description 06/27/2024 9:30 AM EDT Office Visit Orthopaedics [address] [phone] Edwin Staples MD [address] [place] [address] Primary 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 of both knees*; Knee effusion, [...] :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),Homozygous MTHFR mutation K9541N,Hx pulmonary embolism Take 1 Tablet by mouth [...] Release 24 Hour (toPROL XL)Indications:Ather osclerosis of [place] coronary artery of [place] heart without angina pectoris TAKE 1 TABLET [...] 07/16/2020 Primary 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 of both knees 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 0 03/04/2019 Actinic keratosis 12/12/2018 Atherosclerosis of [place] 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[place] heart without angina pectoris 04/19/2018 Abdominal aortic aneurysm without rupture 2015 Homozygous MTHFR mutation S3638G 09/14/2015 Factor V Leiden mutation 12/30/2013 Overview: [...] of pulmonary artery 12/23/2013 04/19/2018 Overview: Admitted [place] Encounter for examination fo r normal comparison [...] - 06/27/2024 9:26 AM EDT Jeff Powers [id number] Jeff Powers is a 88 year old male who presents for f/u to [facility] for bilateral [...] of both eyes with active choroidal neovascularization ([facility]) Exudative age-related macular degeneration of right eye with active choroidal neovascularization ([facility]) Factor V Leiden mutation ([facility]) 12/30/2013 has one copy of Factor V Leiden mutation Generalized 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 GERD (gastroesophageal reflux disease) Herpes zoster 08/05/2008 left forehead 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 E9074E 09/18/2015 [facility] HTN, goal below 140/90 Iliac artery thrombosis, left ([facility]) 09/18/2015 [facility] Internal hemorrhoids 07/24/2007 Macular degeneration (senile) of retina 06/26/2014 Nonexudative age-related macular degeneration, bilateral, intermediate dry stage Other seborrheic keratosis 06/17/2002 maulik-surgical removal under local anesthesia Saddle embolus of pulmonary artery ([facility]) 12/23/2013 Admitted [place] Tobacco use [...] MD Sports Medicine Primary Care Orthopaedics [address] [place] [address] documented in this encounter Nursing Notes * [...] 07/09/2024 8:15 AM EDT Office Visit Ophthalmology, [facility] [address] [place] [address] Mau Deleon, [address] [place] [address] 07/12/2024 11:40 AM EDT Office Visit Family Medicine [address] [phone] Yaz Terry [address] [place] [address] 09/12/2024 10:30 AM EST Office Visit Orthopaedics [address] [phone] Edwin Staples MD [address] [place] [address] 09/18/2024 8:30 AM EST Appointment Vascular Lab [address] [phone] 09/18/2024 9:00 AM EST Office Visit Vascular Surg [facility] [address] [place] [address] Clayton Lee MD [address] [place] [facility] [place] [address] 09/19/2024 10:30 AM EST Office Visit Orthopaedics [address] [phone] Edwin Staples MD [address] [place] [address] 09/26/2024 10:30 AM EST Office Visit Orthopaedics [address] [phone] Edwin Staples MD [address] [place] [address] 10/08/2024 9:30 AM EST Office Visit Cardiology [address] [place] [address] Jesus Alberto Montiel PA-C [address] [place] [address] 12/25/2024 8:40 AM EDT Office Visit Family Medicine [address] [phone] Fran Peres MD [address] [place] [address] [place] [address] Pending Results Name Type Priority Associated Diagnoses [...] Comments DISCUSS TOBACCO CESSATION (REFER TO SMARTSET #8880) 1937 Alpha-1 Antitrypsin 11/23/1955 Depression Screening 04/23/2021 [...] this encounter Medical Devices Implanted Type Area Nnps Device Identifier Shelf Expiration Date Model / Serial / Lot Graft Aaa Bif [id number] - [id number] - [id number] Implanted:Qty: 1 on 02/13/2015 by Clayton Lee MD at OR [facility] [employer] : VASCULAR 12/02/2016 [id number] / [id number] / Limb Contralat [id number] - [id number] - [id number] Implanted:Qty: 1 on 02/13/2015 by Clayton Lee MD at [place] [facility] Aorta [employer] : VASCULAR 11/19/2016 [id number] / [id number] / Limb Contralat [id number] - [id number] - [id number] Implanted:Qty: 1 on 02/13/2015 by Clayton Lee MD at [place] [facility] Aorta [employer] : VASCULAR [id number] / [id number] / Plug Vasc Ampl 16mm 9-Plug-016 - [id number] Implanted:Qty: 1 on 02/13/2015 by Clayton Lee MD at [place] [facility] Aorta [employer] MEDICAL TREVON 9-PLUG-0 16 / / documented [...] and were consensually agreed upon. Care Teams Criminalist Relationship Specialty Start Date End Date Fran Peres MD [address] [place] [address] [place] [address] PCP - General Family Medicine 12/13/23 documented as of this encounter
--- OUTSIDE RECORDS SUMMARY | 2024-12-03 16:56 | External Medical Summary ---
Author Name Unknown Address Unknown Organization K01:[facility] - [address] [facility] [address] [facility] [address] Laboratory Report Ordering Provider Test Date Status RAMONA MORENO 06/27/2024 11:22:55 Final Reference ranges are for no nts without prior surgery. Some reference ranges and other method performance specifications have not been established for this fluid. The test results must be integrated into the clinical context for interpretation.
null Observation Date Value Abnormality Reference (Units ) Status Color of Body fluid 06/27/2024 11:22:55 Yellow Straw, Yellow, Colorless Final Clarity of Body fluid 06/27/2024 11:22:55 Clear Clear Final Leukocytes [#/volume] in Synovial fluid 06/27/2024 11:22:55 224 Above high normal 0-180 (cells/uL) Final Erythrocytes [#/volume] in Synovial fluid 06/27/2024 11:22:55 254 <2000 (cells/uL) Final Performing Location [facility] - [address] [place] [address]
--- OUTSIDE RECORDS SUMMARY | 2024-12-03 16:56 | External Medical Summary | Summary of Care ---
Author Name Unknown Organization [facility] Address [address] [facility] [place] [address] Phone [phone] Care Team Providers Care Manufacturing Executive Name Role Phone Fran Peres MD Primary Care Provide r Reason for Visit * Reason Onset Date Comments Med Request 06/27/2024 Encounter Details Date Type Department Care Team (Late st Contact Info) Description 06/27/2024 Telephone Orthopaedics [facility] [address] [place] [address] Andie Conley MD [address] [place] [address] Med Request Allergies No known active allergiesdocumented as of [...] Solution (Duoneb)Indications: COPD, 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 determined ([facility]) [...] Oral Tablet (Eliquis)Indications :Factor V Leiden mutation ([facility]),Homozygous MTHFR mutation J8082L,Hx pulmonary embolism Take 1 Tablet by mouth [...] Release 24 Hour (toPROL XL)Indications:Ather osclerosis of [place] coronary artery of [place] heart without angina pectoris TAKE 1 TABLET BY MOUTH EVERY EVENING 100 Tablet 1 06/02/2024 Active Clopidogrel Bisulfate 75 MG Oral Tablet (pLAVix)Indications: Factor V Leiden mutation ([facility]),Iliac artery thrombosis, left (HCC),Infrarenal abdominal aortic aneurysm (AAA) without rupture ([facility]) TAKE ONE TABLET BY MOUTH EVERY MORNING [...] 07/16/2020 Primary 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 of 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 0 03/04/2019 Actinic keratosis 12/12/2018 Atherosclerosis of [place] 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[place] heart without angina pectoris 04/19/2018 Abdominal aortic aneurysm without rupture 2015 Homozygous MTHFR mutation K3750N 09/14/2015 Factor V Leiden mutation 12/30/2013 Overview: [...] of pulmonary artery 12/23/2013 04/19/2018 Overview: Admitted [place] Encounter for examination fo r normal comparison [...] encounter Miscellaneous Notes * Telephone Encounter - Kaitlyn Cuello OSA - 06/27/2024 11:28 AM EDT See referral message * Telephone Encounter - Naty [place]er MED ASSIST - 06/27/2024 10:13 AM EDT Orthopaedics Pre-Cert Request Medication/Disease State Information: Medication: Hyaluronate- Gelsyn-3 (J7328): inject 16.8 mg (2 mL) once weekly for 3 weeks (total of 6 injections). Route to [id number] Is there radiological proof(x-ray, cat scan, mri of 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? yesIf yes, date of scan: Has the patient tried physical therapy?yes Has the patient tried tylenol or NSAIDs?yes Has the patient failed corticosteroid injections of the knee?yes Has the patient tried weight loss?no Has the patient tried knee bracing?yes Has the patient tried a home exercise program?no Diagnosis (including ICD-10): Bilateral Osteoarthritis of Knee- M17.0 Medication(s) Tried/Failed/Contraindicated: Is this for continuation of therapy?(If yes, was there improvement?) No See corresponding visit note(s) for additional supporting clinical information. Office Information: Prescriber: andie conley * Telephone Encounter - Naty Greer MED ASSIST - 06/27/2024 10:13 AM EDT ----- Message from Andie Conley MD sent at 06/27/2024 10:02 AM EDT ----- Regarding: [place] auth Please get authorization for Hyaluronic acid injection series (prefer Gelsyn) for BL knee. Recommended series start in 6-8 weeks. documented in this encounter Plan of Treatment Upcoming Encounters Date Type Department Care Team (Late st Contact Info) Description 07/09/2024 8:15 AM EDT Office Visit Ophthalmology, [facility] [address] [place] [address] Mau Deleon DO [address] [place] [address] 07/12/2024 11:40 AM EDT Office Visit Family Medicine [address] [phone] Yaz Terry [address] [place] [address] 09/12/2024 10:30 AM EST Office Visit Orthopaedics [address] [phone] Andie Conley MD [address] [place] [address] 09/18/2024 8:30 AM EST Appointment Vascular Lab [address] [address] 09/18/2024 9:00 AM EST Office Visit Vascular Surg [place] [address] [place] [address] Clayton Lee MD [facility] [place] [address] 09/19/2024 10:30 AM EST Office Visit Orthopaedics [address] [phone] Andie Conley MD [address] [place] [address] 09/26/2024 10:30 AM EST Office Visit Orthopaedics [address] [phone] Andie Conley MD [address] [place] [address] 10/08/2024 9:30 AM EST Office Visit Cardiology [address] [place] [address] Jesus Alberto Montiel PA-C [address] [place] [address] 12/25/2024 8:40 AM EDT Office Visit Family Medicine [address] [phone] Fran Peres MD [address] [place] [address] [place] [address] Health Maintenance Due Date Last Done Comments [...] this encounter Medical Devices Implanted Type Area Rail Track Maintainer Device Identifier Shelf Expiration Date Model / Serial / Lot Graft Aaa Bif [id number] - [id number] - [id number] Implanted:Qty: 1 on 02/13/2015 by Clayton Lee MD [place] [facility] [place] [employer] : VASCULAR 12/02/2016 [id number] / [id number] / Limb Contralat [id number] - [id number] - [id number] Implanted:Qty: 1 on 02/13/2015 by Clayton Lee MD [place] [facility] [employer] : VASCULAR 11/19/2016 [id number] / [id number] / Limb Contralat [id number] - [id number] - [id number] Implanted:Qty: 1 on 02/13/2015 by Clayton Lee MD [place] [facility]orta [employer] : VASCULAR [id number] / [id number] / Plug Vasc Ampl 16mm 9-Plug-016 - [id number] Implanted:Qty: 1 on 02/13/2015 by Clayton Lee MD [place] [facility] Aorta [employer] MEDICAL TREVON 9-PLUG-0 16 / / documented [...] and were consensually agreed upon. Care Teams Manufacturing Executive Relationship Specialty Start Date End Date Fran Peres MD [address] [place] [address] [place] [address] PCP - General Family Medicine 12/13/23 documented as of this encounter
--- OUTSIDE RECORDS SUMMARY | 2024-12-03 16:56 | External Medical Summary | Summary of Care ---
Author Name Unknown Organization [facility] Address [address] [facility] [address] Phone [phone] Care Team Providers Care Brass Pickler Name Role Phone Fran Peres MD Primary Care Provide r Reason for Visit * Reason Comments Follow Up B/l knee Knee Pain Encounter Details Date Type Department Care Team (Latest Contact Info) Description 06/27/2024 9:30 AM EDT Office Visit Orthopaedics [address] [phone] Edwin Staples MD [address] [place] [address] Primary 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 of both knees*; Knee effusion, [...] :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),Homozygous MTHFR mutation A3351A,Hx pulmonary embolism Take 1 Tablet by mouth [...] Release 24 Hour (toPROL XL)Indications:Ather osclerosis of [place] coronary artery of [place] heart without angina pectoris TAKE 1 TABLET [...] 07/16/2020 Primary 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 of both knees 08/01/2019 residential current use of 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 0 03/04/2019 Actinic keratosis 12/12/2018 Atherosclerosis of [place] 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[place] heart without angina pectoris 04/19/2018 Abdominal aortic aneurysm without rupture 2015 Homozygous MTHFR mutation D3406M 09/14/2015 Factor V Leiden mutation 12/30/2013 Overview: [...] of pulmonary artery 12/23/2013 04/19/2018 Overview: Admitted [place] Encounter for examination fo r normal comparison [...] - 06/27/2024 9:26 AM EDT Jeff Powers [id number] Jeff Powers is a 88 year old male who presents for f/u to [facility] for bilateral [...] of both eyes with active choroidal neovascularization ([facility]) Exudative age-related macular degeneration of right eye with active choroidal neovascularization ([facility]) Factor V Leiden mutation ([facility]) 12/30/2013 has one copy of Factor V Leiden mutation Generalized 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 GERD (gastroesophageal reflux disease) Herpes zoster 08/05/2008 left forehead 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 X5006Q 09/18/2015 [facility] HTN, goal below 140/90 Iliac artery thrombosis, left ([facility]) 09/18/2015 [facility] Internal hemorrhoids 07/24/2007 Macular degeneration (senile) of retina 06/26/2014 Nonexudative age-related macular degeneration, bilateral, intermediate dry stage Other seborrheic keratosis 06/17/2002 maulik-surgical removal under local anesthesia Saddle embolus of pulmonary artery ([facility]) 12/23/2013 Admitted [place] Tobacco use disorder Vitamin [...] Staples MD Sports Medicine Primary Care Orthopaedics [address] [place] [address] documented in this encounter Nursing Notes * [...] 07/09/2024 8:15 AM EDT Office Visit Ophthalmology, [facility] [address] [place] [address] Mau Deleon, [address] [place] [address] 07/12/2024 11:40 AM EDT Office Visit Family Medicine [address] [phone] Yaz Terry [address] [place] [address] 09/12/2024 10:30 AM EST Office Visit Orthopaedics [address] [phone] Edwin Staples MD [address] [place] [address] 09/18/2024 8:30 AM EST Appointment Vascular Lab [address] [phone] 09/18/2024 9:00 AM EST Office Visit Vascular Surg [facility] [address] [place] [address] Clayton Lee MD [address] [place] [facility] [address] 09/19/2024 10:30 AM EST Office Visit Orthopaedics [address] [phone] Edwin Staples MD [address] [place] [address] 09/26/2024 10:30 AM EST Office Visit Orthopaedics [address] [phone] Edwin Staples MD [address] [place] [address] 10/08/2024 9:30 AM EST Office Visit Cardiology [address] [place] [address] Jesus Alberto Montiel PA-C [address] [place] [address] 12/25/2024 8:40 AM EDT Office Visit Family Medicine [address] [phone] Fran Peres MD [address] [place] [address] [place] [address] Pending Results Name Type Priority Associated Diagnoses [...] Comments DISCUSS TOBACCO CESSATION (REFER TO SMARTSET #3535) 1937 Alpha-1 Antitrypsin 11/23/1955 Depression Screening 04/23/2021 [...] this encounter Medical Devices Implanted Type Area Videogame Tester Device Identifier Shelf Expiration Date Model / Serial / Lot Graft Aaa Bif [id number] - [id number] - [id number] Implanted:Qty: 1 on 02/13/2015 by Clayton Lee MD at OR [facility] [employer] : VASCULAR 12/02/2016 [id number] / [id number] / Limb Contralat [id number] - [id number] - [id number] Implanted:Qty: 1 on 02/13/2015 by Clayton Lee MD at OR [facility] Aorta [employer] : VASCULAR 11/19/2016 [id number] / [id number] / Limb Contralat [id number] - [id number] - [id number] Implanted:Qty: 1 on 02/13/2015 by Clayton Lee MD at OR [facility] Aorta [employer] : VASCULAR [id number] / [id number] / Plug Vasc Ampl 16mm 9-Plug-016 - [id number] Implanted:Qty: 1 on 02/13/2015 by Clayton Lee MD at OR [facility] Aorta [employer] MEDICAL TREVON 9-PLUG-0 16 / / documented [...] and were consensually agreed upon. Care Teams Brass Pickler Relationship Specialty Start Date End Date Fran Peres MD [address] [place] [address] [place] [address] PCP - General Family Medicine 12/13/23 documented as of this encounter
--- OUTSIDE RECORDS SUMMARY | 2024-12-03 16:56 | External Medical Summary | Summary of Care ---
Author Name Unknown Organization [facility] Address [address] [facility] [address] Phone [phone] Care Team Providers Care Mathematical Scientist Name Role Phone Fran Peres MD Primary Care Provide r Reason for Visit * Reason Comments Follow Up B/l knee Knee Pain Encounter Details Date Type Department Care Team (Latest Contact Info) Description 06/27/2024 9:30 AM EDT Office Visit Orthopaedics [address] [phone] Edwin Staples MD [address] [place] [address] Primary 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 of both knees*; Knee effusion, [...] :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),Homozygous MTHFR mutation O6242G,Hx pulmonary embolism Take 1 Tablet by mouth [...] Release 24 Hour (toPROL XL)Indications:Ather osclerosis of [place] coronary artery of [place] heart without angina pectoris TAKE 1 TABLET [...] 07/16/2020 Primary 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 of both knees 08/01/2019 longterm current use of 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 0 03/04/2019 Actinic keratosis 12/12/2018 Atherosclerosis of [place] 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[place] heart without angina pectoris 04/19/2018 Abdominal aortic aneurysm without rupture 2015 Homozygous MTHFR mutation V6656Y 09/14/2015 Factor V Leiden mutation 12/30/2013 Overview: [...] of pulmonary artery 12/23/2013 04/19/2018 Overview: Admitted [place] Encounter for examination fo r normal comparison [...] - 06/27/2024 9:26 AM EDT Jeff Powers [id number] Jeff Powers is a 88 year old male who presents for f/u to [facility] Orthopa[facility]ics [facility] Medicine for bilateral [...] 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 M8273T 09/18/2015 [facility] HTN, goal below 140/90 Iliac artery thrombosis, 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 [facility] Internal [...] MD Sports Medicine Primary Care Orthopaedics [address] [place] [phone] documented in this encounter Nursing Notes * [...] 07/09/2024 8:15 AM EDT Office Visit Ophthalmology, [facility] [address] [place] [address] Mau Deleon, [address] [place] [address] 07/12/2024 11:40 AM EDT Office Visit Family Medicine [address] [phone] Yaz Terry [address] [place] [address] 09/12/2024 10:30 AM EST Office Visit Orthopaedics [address] [phone] Edwin Staples MD [address] [place] [address] 09/18/2024 8:30 AM EST Appointment Vascular Lab [address] [phone] 09/18/2024 9:00 AM EST Office Visit Vascular Surg [facility] [address] [place] [address] Clayton Lee MD [address] [facility] [place] [address] 09/19/2024 10:30 AM EST Office Visit Orthopaedics [address] [phone] Edwin Staples MD [address] [place] [address] 09/26/2024 10:30 AM EST Office Visit Orthopaedics [address] [phone] Edwin Staples MD [address] [place] [address] 10/08/2024 9:30 AM EST Office Visit Cardiology [address] [place] [address] Jesus Alberto Montiel PA-C [address] [place] [address] 12/25/2024 8:40 AM EDT Office Visit Family Medicine [address] [phone] Fran Peres MD [address] [place] [address] [place] [address] Pending Results Name Type Priority Associated Diagnoses [...] Comments DISCUSS TOBACCO CESSATION (REFER TO SMARTSET #3087) 1937 Alpha-1 Antitrypsin 11/23/1955 Depression Screening 04/23/2021 [...] encounter Medical Devices Implanted Type Area Business Continuity Manager Device Identifier Shelf Expiration Date Model / Serial / Lot Graft Aaa Bif [id number] - [id number] - [id number] Implanted:Qty: 1 on 02/13/2015 by Clayton Lee MD at OR [facility] [employer] : VASCULAR 12/02/2016 [id number] / [id number] / Limb Contralat [id number] - [id number] - [id number] Implanted:Qty: 1 on 02/13/2015 by Clayton Lee MD [place] [facility] Aorta [employer] : VASCULAR 11/19/2016 [id number] / [id number] / Limb Contralat [id number] - [id number] - [id number] Implanted:Qty: 1 on 02/13/2015 by Clayton Lee MD at [place] [facility] Aorta [employer] : VASCULAR [id number] / [id number] / Plug Vasc Ampl 16mm 9-Plug-016 - [id number] Implanted:Qty: 1 on 02/13/2015 by Clayton Lee MD at [place] [facility] Aorta [employer] MEDICAL TREVON 9-PLUG-0 16 / / documented [...] and were consensually agreed upon. Care Teams Mathematical Scientist Relationship Specialty Start Date End Date Fran Peres MD [address] [place] [address] [place] [address] PCP - General Family Medicine 12/13/23 documented as of this encounter
--- OUTSIDE RECORDS SUMMARY | 2024-12-03 16:56 | External Medical Summary | Summary of Care ---
Author Name Unknown Organization [facility] Address [address] [facility] [address] Phone [phone] Care Team Providers Care Slicing Machine Feeder Name Role Phone Fran Peres MD Primary Care Provide r Reason for Visit * Reason Comments Follow Up B/l knee Knee Pain Encounter Details Date Type Department Care Team (Latest Contact Info) Description 06/27/2024 9:30 AM EDT Office Visit Orthopaedics [address] [phone] Edwin Staples MD [address] [place] [address] Primary 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 of both knees*; Knee effusion, [...] :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),Homozygous MTHFR mutation N7564F,Hx pulmonary embolism Take 1 Tablet by mouth [...] Release 24 Hour (toPROL XL)Indications:Ather osclerosis of [place] coronary artery of [place] heart [...] aneurysm without rupture 2015 Homozygous MTHFR mutation E1312N 09/14/2015 Factor V Leiden mutation 12/30/2013 Overview: [...] of pulmonary artery 12/23/2013 04/19/2018 Overview: Admitted [place] Encounter for examination fo r normal comparison [...] - 06/27/2024 9:26 AM EDT Jeff Powers [id number] Jeff Powers is a 88 year old male who presents for f/u to [facility] Orthopa[facility]ics and [facility] Medicine for bilateral [...] 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 [id number] 09/18/2015 [facility] HTN, goal below 140/90 Iliac artery thrombosis, left ([facility]) 09/18/2015 [facility] Internal hemorrhoids 07/24/2007 Macular degeneration (senile) of retina 06/26/2014 Nonexudative age-related macular degeneration, bilateral, intermediate dry stage Other seborrheic keratosis 06/17/2002 maulik-surgical removal under local anesthesia Saddle embolus of pulmonary artery ([facility]) 12/23/2013 Admitted Daina Tobacco use [...] Staples MD Sports Medicine Primary Care Orthopaedics [address] [phone] documented in this encounter Nursing Notes * Conrelia Doan LPN - 06/27/2024 9:31 AM EDT [...] 07/09/2024 8:15 AM EDT Office Visit Ophthalmology, [facility] [address] [place] [address] Mau Deleon DO [address] [place] [address] 07/12/2024 11:40 AM EDT Office Visit Family Medicine [address] [phone] Yaz Terry [address] [place] [address] 09/12/2024 10:30 AM EST Office Visit Orthopaedics [address] [phone] Edwin Staples MD [address] [place] [address] 09/18/2024 8:30 AM EST Appointment Vascular Lab [address] [address] 09/18/2024 9:00 AM EST Office Visit Vascular Surg [address] [address] Clayton Lee MD [facility] [place]note 2[facility] [place] [address] 09/19/2024 10:30 AM EST Office Visit Orthopaedics [address] [phone] Edwin Staples MD [address] [place] [address] 09/26/2024 10:30 AM EST Office Visit Orthopaedics [address] [phone] Edwin Staples MD [address] [place] [address] 10/08/2024 9:30 AM EST Office Visit Cardiology [address] [place] [address] Jesus Alberto Montiel PA-C [address] [place] [address] 12/25/2024 8:40 AM EDT Office Visit Family Medicine [address] [phone] Fran Peres MD [address] [place] [address] [place] [address] Scheduled Orders Name Type Priority Associated Diagnoses [...] Comments DISCUSS TOBACCO CESSATION (REFER TO SMARTSET #2535) 1935 Alpha-1 Antitrypsin 11/23/1955 Depression Screening 04/23/2021 [...] this encounter Medical Devices Implanted Type Area Electric Appliance Installer Device Identifier Shelf Expiration Date Model / Serial / Lot Graft Aaa Bif [id number] - [id number] - [id number] Implanted:Qty: 1 on 02/13/2015 by Clayton Lee MD [place] [facility] Aorta [employer] : VASCULAR 12/02/2016 [id number] / [id number] / Limb Contralat [id number] - [id number] - [id number] Implanted:Qty: 1 on 02/13/2015 by Clayton Lee MD at [place] [facility] Aorta [employer] : VASCULAR 11/19/2016 [id number] / [id number] / Limb Contralat [id number] - [id number] - [id number] Implanted:Qty: 1 on 02/13/2015 by Clayton Lee MD [place] [facility] Aorta [employer] : VASCULAR [id number] / [id number] / Plug Vasc Ampl 16mm 9-Plug-016 - [id number] Implanted:Qty: 1 on 02/13/2015 by Clayton Lee MD at [place] [facility] Aorta [employer] MEDICAL TREVON 9-PLUG-0 16 / / documented [...] and were consensually agreed upon. Care Teams Slicing Machine Feeder Relationship Specialty Start Date End Date Fran Peres MD [address] [place] [address] [place] [address] PCP - General Family Medicine 12/13/23 documented as of this encounter
--- OUTSIDE RECORDS SUMMARY | 2024-12-03 16:56 | External Medical Summary | Summary of Care ---
Author Name Unknown Organization [facility] Address [address] [facility] [address] Phone [phone] Care Team Providers Care Quality Engineering Manager Name Role Phone Fran Peres MD Primary Care Provide r Reason for Visit * Reason Comments Follow Up B/l knee Knee Pain Encounter Details Date Type Department Care Team (Latest Contact Info) Description 06/27/2024 9:30 AM EDT Office Visit Orthopaedics [address] [phone] Edwin Staples MD [address] [place] [address] Primary 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 of both knees*; Knee effusion, [...] :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),Homozygous MTHFR mutation F5002Q,Hx pulmonary embolism Take 1 Tablet by mouth [...] Release 24 Hour (toPROL XL)Indications:Ather osclerosis of [place] coronary artery of [place] heart without angina pectoris TAKE 1 TABLET [...] 0 03/04/2019 Actinic keratosis 12/12/2018 Atherosclerosis of [place] 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[place] heart without angina pectoris 04/19/2018 Abdominal aortic aneurysm without rupture 2015 Homozygous MTHFR mutation U4400Y 09/14/2015 Factor V Leiden mutation 12/30/2013 Overview: [...] of pulmonary artery 12/23/2013 04/19/2018 Overview: Admitted [place] Encounter for examination fo r normal comparison [...] - 06/27/2024 9:26 AM EDT Jeff Powers [id number] Jeff Powers is a 88 year old male who presents for f/u to [facility] Orthopaedics and [facility] Medicine for bilateral knee [...] eyes with active choroidal neovascularization ([facility]) Exudative age-related macular degeneration of right eye with active choroidal neovascularization ([facility]) Factor V Leiden mutation ([facility]) 12/30/2013 has one copy of Factor V Leiden mutation Generalized 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 GERD (gastroesophageal reflux disease) Herpes zoster 08/05/2008 left forehead 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 J0020I 09/18/2015 [facility] HTN, goal below 140/90 Iliac artery thrombosis, 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 [facility] Internal hemorrhoids 07/24/2007 Macular degeneration (senile) of retina 06/26/2014 Nonexudative age-related macular degeneration, bilateral, intermediate dry stage Other seborrheic keratosis 06/17/2002 maulik-surgical removal under local anesthesia Saddle embolus of pulmonary artery ([facility]) 12/23/2013 Admitted Daina Tobacco use [...] Staples MD Sports Medicine Primary Care Orthopaedics [address] [place] [address] documented in this encounter Nursing Notes * [...] 07/09/2024 8:15 AM EDT Office Visit Ophthalmology, [facility] [address] [place] [address] Mau Deleon, [address] [place] [address] 07/12/2024 11:40 AM EDT Office Visit Family Medicine [address] [phone] Yaz Terry [address] [place] [address] 09/12/2024 10:30 AM EST Office Visit Orthopaedics [address] [phone] Edwin Staples MD [address] [place] [address] 09/18/2024 8:30 AM EST Appointment Vascular Lab [address] [phone] 09/18/2024 9:00 AM EST Office Visit Vascular Surg [facility] [address] [place] [address] Clayton Lee MD [address] [place] [address] 09/19/2024 10:30 AM EST Office Visit Orthopaedics [address] [phone] Edwin Staples MD [address] [place] [address] 09/26/2024 10:30 AM EST Office Visit Orthopaedics [address] [phone] Edwin Staples MD [address] [facility] [place] [address] 10/08/2024 9:30 AM EST Office Visit Cardiology [address] [place] [address] Jesus Alberto Montiel PA-C [address] [place] [address] 12/25/2024 8:40 AM EDT Office Visit Family Medicine [address] [phone] Fran Peres MD [address] [place] [address] [place] [address] Scheduled Orders Name Type Priority Associated Diagnoses Orde r Schedule POINT OF CARE US MAJOR JOINT INJECTION, ORTHO Medical Imaging Routine Primary 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 of both knees Knee effusion, left Knee effusion, right Ordered: 06/27/2024 CELL COUNT WITH DIFFERENTIAL, SYNOVIAL FLUID Lab Routine Knee effusion, left Expected: 06/27/2024, Expires: 06/27/2025 CRYSTAL ANALYSIS, BODY FLUID Lab Routine Knee effusion, left Expected: 06/27/2024, Expires: 06/27/2025 CELL COUNT, SYNOVIAL FLUID Lab Routine Knee effusion, left Ordered: 06/27/2024 MANUAL DIFFERENTIAL, SYNOVIAL FLUID Lab Routine Knee effusion, left Ordered: 06/27/2024 Health Maintenance Due Date Last Done Comments DISCUSS TOBACCO CESSATION (REFER TO SMARTSET #1556) 1935 Alpha-1 Antitrypsin 11/23/1955 Depression Screening 04/23/2021 [...] this encounter Medical Devices Implanted Type Area Clipman Device Identifier Shelf Expiration Date Model / Serial / Lot Graft Aaa Bif [id number] - [id number] - [id number] Implanted:Qty: 1 on 02/13/2015 by Clayton Lee MD at [place] [facility] Aorta [employer] : VASCULAR 12/02/2016 [id number] / [id number] / Limb Contralat [id number] - [id number] - [id number] Implanted:Qty: 1 on 02/13/2015 by Clayton Lee MD at OR [facility] Aorta [employer] : VASCULAR 11/19/2016 [id number] / [id number] / Limb Contralat [id number] - [id number] - [id number] Implanted:Qty: 1 on 02/13/2015 by Clayton Lee MD at OR [facility] Aorta [employer] : VASCULAR [id number] / [id number] / Plug Vasc Ampl 16mm 9-Plug-016 - [id number] Implanted:Qty: 1 on 02/13/2015 by Clayton Lee MD at OR [facility] Aorta [employer] MEDICAL TREVON 9-PLUG-0 16 / / documented [...] and were consensually agreed upon. Care Teams Quality Engineering Manager Relationship Specialty Start Date End Date Fran Peres MD [address] [place] [address] [place] [address] PCP - General Family Medicine 12/13/23 documented as of this encounter
--- OUTSIDE RECORDS SUMMARY | 2024-12-03 16:56 | External Medical Summary | Summary of Care ---
Author Name Unknown Organization [facility] Address [address] [facility] [place] [address] Phone [phone] Care Team Providers Care Business Control Manager Name Role Phone Fran Peres MD Primary Care Provide r Reason for Visit * Reason Onset Date Comments Med Request 06/27/2024 Encounter Details Date Type Department Care Team (Late st Contact Info) Description 06/27/2024 Telephone Orthopaedics [facility] [address] [place] [address] Edwin Conley MD [address] [place] [address] Med Request Allergies No known active allergiesdocumented [...] Solution (Duoneb)Indications: COPD, 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 determined ([facility]) Inhale 3 mL by mouth [...] Oral Tablet (Eliquis)Indications :Factor V Leiden mutation ([facility]),Homozygous MTHFR mutation K2204N,Hx pulmonary embolism Take 1 Tablet by mouth [...] Release 24 Hour (toPROL XL)Indications:Ather osclerosis of [place] coronary artery of [place] heart without angina pectoris TAKE 1 TABLET BY MOUTH EVERY EVENING 100 Tablet 1 06/02/2024 Active Clopidogrel Bisulfate 75 MG Oral Tablet (pLAVix)Indications: Factor V Leiden mutation ([facility]),Iliac artery thrombosis, left (HCC),Infrarenal abdominal aortic aneurysm (AAA) without rupture (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 0 03/04/2019 Actinic keratosis 12/12/2018 Atherosclerosis of [place] 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[place] heart without angina pectoris 04/19/2018 Abdominal aortic aneurysm without rupture 2015 Homozygous MTHFR mutation G5084F 09/14/2015 Factor V Leiden mutation 12/30/2013 Overview: [...] of pulmonary artery 12/23/2013 04/19/2018 Overview: Admitted [place] Encounter for examination fo r normal comparison [...] encounter Miscellaneous Notes * Telephone Encounter - Naty [place]er MED ASSIST - 06/27/2024 10:13 AM EDT Orthopaedics Pre-Cert Request Medication/Disease State Information: Medication: Hyaluronate- Gelsyn-3 (J7328): inject 16.8 mg (2 mL) once weekly for 3 weeks (total of 6 injections). Route to [id number] Is there radiological proof(x-ray, cat scan, mri [...] additional supporting clinical information. Office Information: Prescriber: edwin conley * Telephone Encounter - Naty [place] MED ASSIST - 06/27/2024 10:13 AM EDT ----- Message from Edwin Conley MD sent at 06/27/2024 10:02 AM EDT ----- Regarding: FRED[place]ICK auth Please get authorization for Hyaluronic acid injection series (prefer Gelsyn) for BL knee. Recommended series start in 6-8 weeks. documented in this encounter Plan of Treatment Upcoming Encounters Date Type Department Care Team (Late st Contact Info) Description 07/09/2024 8:15 AM EDT Office Visit Ophthalmology, [facility] [address] [place] [address] Mau Deleon DO [address] [place] [address] 07/12/2024 11:40 AM EDT Office Visit Family Medicine [address] [phone] Yaz Terry [address] [place] [address] 09/12/2024 10:30 AM EST Office Visit Orthopaedics [address] [phone] Edwin Conley MD [address] [place] [address] 09/18/2024 8:30 AM EST Appointment Vascular Lab [address] [address] 09/18/2024 9:00 AM EST Office Visit Vascular Surg [address] [address] Clayton Lee MD [facility] [place] [address] 09/19/2024 10:30 AM EST Office Visit Orthopaedics [address] [phone] Edwin Conley MD [address] [place] [address] 09/26/2024 10:30 AM EST Office Visit Orthopaedics [address] [phone] Edwin Conley MD [address] [place] [address] 10/08/2024 9:30 AM EST Office Visit Cardiology [address] [place] [address] Jesus Alberto Montiel PA-C [address] [place] [address] 12/25/2024 8:40 AM EDT Office Visit Family Medicine [address] [place] [phone] Fran Peres MD [address] [place] [address] [place] [address] Health Maintenance Due Date Last Done Comments DISCUSS TOBACCO CESSATION (REFER TO SMARTSET #3936) 1935 Alpha-1 Antitrypsin 11/23/1955 Depression Screening 04/23/2021 [...] this encounter Medical Devices Implanted Type Area Flag Signaler Device Identifier Shelf Expiration Date Model / Serial / Lot Graft Aaa Bif [id number] - [id number] - [id number] Implanted:Qty: 1 on 02/13/2015 by Clayton Lee MD [place] [facility] Aorta [employer] : VASCULAR 12/02/2016 [id number] / [id number] / Limb Contralat [id number] - [id number] - [id number] Implanted:Qty: 1 on 02/13/2015 by Clayton Lee MD [place] [facility] Aorta [employer] : VASCULAR 11/19/2016 [id number] / [id number] / Limb Contralat [id number] - [id number] - [id number] Implanted:Qty: 1 on 02/13/2015 by Clayton Lee MD [place] [facility] Aorta [employer] : VASCULAR [id number] / [id number] / Plug Vasc Ampl 16mm 9-Plug-016 - [id number] Implanted:Qty: 1 on 02/13/2015 by Clayton Lee MD at [place] [facility] Aorta [employer] MEDICAL TREVON 9-PLUG-0 16 / / documented [...] and were consensually agreed upon. Care Teams Business Control Manager Relationship Specialty Start Date End Date Fran Peres MD [address] [place] [address] [place] [address] PCP - General Family Medicine 12/13/23 documented as of this encounter
--- OUTSIDE RECORDS SUMMARY | 2024-12-03 16:56 | External Medical Summary | Summary of Care ---
Author Name Unknown Organization [facility] [address] [facility] [address] Phone [phone] Care Team Providers Care Plaster Helper Name Role Phone Fran Peres MD Primary Care Provide r Reason for Visit * Reason Comments Follow Up B/l knee Knee Pain Encounter Details Date Type Department Care Team (Latest Contact Info) Description 06/27/2024 9:30 AM EDT Office Visit Orthopaedics [address] [phone] Edwin Staples MD [address] [place] [address] Primary 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 of both knees*; Knee effusion, [...] :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),Homozygous MTHFR mutation Z1031C,Hx pulmonary embolism Take 1 Tablet by mouth [...] Release 24 Hour (toPROL XL)Indications:Ather osclerosis of [place] coronary artery of [place] heart without angina pectoris TAKE 1 TABLET [...] 07/16/2020 Primary 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 of both knees 08/01/2019 nursing home current use of 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 0 03/04/2019 Actinic keratosis 12/12/2018 Atherosclerosis of [place] 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[place] heart without angina pectoris 04/19/2018 Abdominal aortic aneurysm without rupture 2015 Homozygous MTHFR mutation G3875C 09/14/2015 Factor V Leiden mutation 12/30/2013 Overview: [...] of pulmonary artery 12/23/2013 04/19/2018 Overview: Admitted [place] Encounter for examination fo r normal comparison [...] - 06/27/2024 9:26 AM EDT Jeff Powers [id number] Jeff Powers is a 88 year old male who presents for f/u to [facility]opa[facility]ics [facility] Medicine for bilateral [...] 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 X6076H 09/18/2015 [facility] HTN, goal below 140/90 Iliac artery thrombosis, 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 [facility] Internal hemorrhoids 07/24/2007 Macular degeneration (senile) of retina 06/26/2014 Nonexudative age-related macular degeneration, bilateral, intermediate dry stage Other seborrheic keratosis 06/17/2002 maulik-surgical removal under local anesthesia Saddle embolus of pulmonary artery ([facility]) 12/23/2013 Admitted [place] Tobacco use disorder Vitamin [...] Staples MD Sports Medicine Primary Care Orthopaedics [address] [phone] documented in this encounter Nursing Notes * [...] 07/09/2024 8:15 AM EDT Office Visit Ophthalmology, [facility] [address] [place] [address] Mau Deleon DO [address] [place] [address] 07/12/2024 11:40 AM EDT Office Visit Family Medicine [address] [phone] Yaz Terry [address] [place] [address] 09/12/2024 10:30 AM EST Office Visit Orthopaedics [address] [phone] Edwin Staplse MD [address] [place] [address] 09/18/2024 8:30 AM EST Appointment Vascular Lab [address] [address] 09/18/2024 9:00 AM EST Office Visit Vascular Surg [address] [address] Clayton Lee MD [facility] [place] [address] 09/19/2024 10:30 AM EST Office Visit Orthopaedics [address] [phone] Edwin Staples MD [address] [place] [address] 09/26/2024 10:30 AM EST Office Visit Orthopaedics [address] [phone] Edwin Staples MD [address] [place] [address] 10/08/2024 9:30 AM EST Office Visit Cardiology [address] [place] [address] Jesus Alberto Montiel PA-C [address] [place] [address] 12/25/2024 8:40 AM EDT Office Visit Family Medicine [address] [phone] Fran Peres MD [address] [place] [address] [place] [address] Scheduled Orders Name Type Priority Associated Diagnoses [...] Comments DISCUSS TOBACCO CESSATION (REFER TO SMARTSET #8052) 1935 Alpha-1 Antitrypsin 11/23/1955 Depression Screening 04/23/2021 [...] this encounter Medical Devices Implanted Type Area Automotive Alignment Specialist Device Identifier Shelf Expiration Date Model / Serial / Lot Graft Aaa Bif [id number] - [id number] - [id number] Implanted:Qty: 1 on 02/13/2015 by Clayton Lee MD at [place] [facility] Aorta [employer] : VASCULAR 12/02/2016 [id number] / [id number] / Limb Contralat [id number] - [id number] - [id number] Implanted:Qty: 1 on 02/13/2015 by Clayton Lee MD at [place] [facility] Aorta [employer] : VASCULAR 11/19/2016 [id number] E / [id number] / Limb Contralat [id number] - [id number] - [id number] Implanted:Qty: 1 on 02/13/2015 by Clayton Lee MD at [place] [facility] Aorta [employer] : VASCULAR [id number] / [id number] / Plug Vasc Ampl 16mm 9-Plug-016 - [id number] Implanted:Qty: 1 on 02/13/2015 by Clayton Lee MD at [place] [facility] Aorta [employer] MEDICAL TREVON 9-PLUG-0 16 / / documented [...] and were consensually agreed upon. Care Teams Plaster Helper Relationship Specialty Start Date End Date Fran Peres MD [address] [place] [address] [place] [address] PCP - General Family Medicine 12/13/23 documented as of this encounter
--- OUTSIDE RECORDS SUMMARY | 2024-12-03 16:56 | External Medical Summary | Summary of Care ---
Author Name Unknown Organization [facility] Address [address] [facility] [address] Phone [phone] Care Team Providers Care Supervisor Coil Winding Name Role Phone Fran Peres MD Primary Care Provide r Reason for Visit * Reason Comments Follow Up B/l knee Knee Pain Encounter Details Date Type Department Care Team (Latest Contact Info) Description 06/27/2024 9:30 AM EDT Office Visit Orthopaedics [address] [phone] Edwin Staples MD [address] [place] [address] Primary 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 of both knees*; Knee effusion, [...] :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),Homozygous MTHFR mutation A5333G,Hx pulmonary embolism Take 1 Tablet by mouth [...] Release 24 Hour (toPROL XL)Indications:Ather osclerosis of [place] coronary artery of [place] heart without angina pectoris TAKE 1 TABLET [...] 0 03/04/2019 Actinic keratosis 12/12/2018 Atherosclerosis of [place] 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[place] heart without angina pectoris 04/19/2018 Abdominal aortic aneurysm without rupture 2015 Homozygous MTHFR mutation [id number] 09/14/2015 Factor V Leiden mutation 12/30/2013 Overview: [...] of pulmonary artery 12/23/2013 04/19/2018 Overview: Admitted Chambers Encounter for examination fo r normal comparison [...] - 06/27/2024 9:26 AM EDT Jeff Powers [id number] Jeff Powers is a 88 year old male who presents for f/u to [facility] Orthopaedics and Sports Medicine for bilateral knee [...] both eyes with active choroidal neovascularization ([facility]) Exudative age-related macular degeneration of right eye with active choroidal neovascularization ([facility]) Factor V Leiden mutation ([facility]) 12/30/2013 has one copy of Factor V Leiden mutation Generalized 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 GERD (gastroesophageal reflux disease) Herpes zoster 08/05/2008 left forehead 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 [id number] 09/18/2015 [facility] [place], goal below 140/90 Iliac artery thrombosis, 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 [facility] Internal hemorrhoids 07/24/2007 Macular degeneration (senile) of retina 06/26/2014 Nonexudative age-related macular degeneration, bilateral, intermediate dry stage Other seborrheic keratosis 06/17/2002 maulik-surgical removal under local anesthesia Saddle embolus of pulmonary artery ([facility]) 12/23/2013 Admitted Daina Tobacco use disorder Vitamin [...] Staples MD Sports Medicine Primary Care Orthopaedics [address] [place] [phone] documented in this encounter Nursing Notes * [...] Office Visit Ophthalmology, [facility] [address] [place] [address] Mau Deleon, [address] [place] [address] 07/12/2024 11:40 AM EDT Office Visit Family Medicine [address] [phone] Yaz Terry [address] [place] [address] 09/12/2024 10:30 AM EST Office Visit Orthopaedics [address] [phone] Edwin Staples MD [address] [place] [address] 09/18/2024 8:30 AM EST Appointment Vascular Lab [address] [phone] 09/18/2024 9:00 AM EST Office Visit Vascular Surg [facility] [address] [place] [address] Clayton Lee MD [address] [place] [address] 09/19/2024 10:30 AM EST Office Visit Orthopaedics [address] [phone] Edwin Staples MD [address] [place] [address] 09/26/2024 10:30 AM EST Office Visit Orthopaedics [address] [phone] Edwin Staples MD [address] [place] [facility] [place] [address] 10/08/2024 9:30 AM EST Office Visit Cardiology [address] [place] [address] Jesus Alberto Montiel PA-C [address] [place] [address] 12/25/2024 8:40 AM EDT Office Visit Family Medicine [address] [phone] Fran Peres MD [address] [place] [address] [place] [address] Scheduled Orders Name Type Priority Associated Diagnoses [...] Comments DISCUSS TOBACCO CESSATION (REFER TO SMARTSET #5258) 1935 Alpha-1 Antitrypsin 11/23/1955 Depression Screening 04/23/2021 [...] this encounter Medical Devices Implanted Type Area Road Machine Operator Device Identifier Shelf Expiration Date Model / Serial / Lot Graft Aaa Bif [id number] - [id number] - [id number] Implanted:Qty: 1 on 02/13/2015 by Clayton [place] [facility] Aorta [employer] : VASCULAR 12/02/2016 [id number] / [id number] / Limb Contralat [id number] - [id number] - [id number] Implanted:Qty: 1 on 02/13/2015 by Clayton Lee MD [place] [facility] Aorta [employer] : VASCULAR 11/19/2016 [id number] / [id number] / Limb Contralat [id number] - [id number] - [id number] Implanted:Qty: 1 on 02/13/2015 by Clayton Lee MD at [place] [facility] Aorta [employer] : VASCULAR [id number] / [id number] / Plug Vasc Ampl 16mm 9-Plug-016 - [id number] Implanted:Qty: 1 on 02/13/2015 by Clayton Lee MD [place] [facility] Aorta [place] [employer] TREVON 9-PLUG-0 16 / / documented [...] and were consensually agreed upon. Care Teams Supervisor Coil Winding Relationship Specialty Start Date End Date Fran Peres MD [address] [place] [address] [place] [phone] PCP - General Family Medicine 12/13/23 documented as of this encounter
--- OUTSIDE RECORDS SUMMARY | 2024-12-03 16:56 | External Medical Summary ---
Author Name Unknown Address Unknown Organization [id number]:[facility] [address] [facility] [address] Laboratory Report Ordering Provider Test Date Status JOSHRAMONA 06/27/2024 11:22:55 Final Reference ranges are for no nts without prior surgery. Some reference ranges and other method performance specifications have not been established for this fluid. The test results must be integrated into the clinical context for interpretation. Observation Date Value Abnormality Reference (Units ) Status SYNC TOTAL NUCLEATED CELLS, SYNOVIAL 06/27/2024 11:22:55 224 (cells/uL) Final Segmented neutrophils/100 leukocytes in Synovial fluid 06/27/2024 11:22:55 17 0-25 (%) Final Lymphocytes/100 leukocytes in Synovial fluid 06/27/2024 11:22:55 14 0-78 (%) Final Monocytes/100 leukocytes in Synovial fluid 06/27/2024 11:22:55 63 0-71 (%) Final Synovial lining cells/100 cells in Synovial fluid 06/27/2024 11:22:55 6 (%) Final SEGMENTED NEUTROPHILS (1000/UG) IN SYNOVIAL FLUID ABS 06/27/2024 11:22:55 38.08 (cells/uL) Final LYMPHOCYTES (1000/UG) IN SYNOVIAL FLUID ABS 06/27/2024 11:22:55 31.36 (cells/uL) Final MONOCYTES(1000/UG) IN SYNOVIAL FLUID ABS 06/27/2024 11:22:55 141.12 (cells/uL) Final LINING CELLS IN SYNOVIAL ABS 06/27/2024 11:22:55 13.44 (cells/uL) Final Performing Location [facility] - [address] [facility] [address]
--- OUTSIDE RECORDS SUMMARY | 2024-12-03 16:56 | External Medical Summary ---
Author Name Unknown Address Unknown Organization [id number]:[facility] [place] - [facility] [place] [address] Laboratory Report Ordering Provider Test Date Status RAMONA MORENO 06/27/2024 11:22:55 Final Observation Date Value Abnormality Reference (Units ) Status Color of Body fluid 06/27/2024 11:22:55 Yellow Straw, Yellow, Colorless Final Clarity of Body fluid 06/27/2024 11:22:55 Clear Clear Final Crystals, Synovial Fluid 06/27/2024 11:22:55 Many Monosodium Urate Crystals Present Abnormal No Crystals Present Final Crystals, Synovial Fluid 06/27/2024 11:22:55 No Crystals Present No Crystals Present Final Performing Location [facility] – [place] - [address] [place] [address]
--- OUTSIDE RECORDS SUMMARY | 2024-12-03 16:57 | External Medical Summary | Summary of Care ---
Author Name Unknown Organization [facility] Address [address] [facility] [address] Phone [phone] Care Team Providers Care Project Management Instructor Name Role Phone Fran Briceno MD Primary Care Provide r Reason for Visit * Reason Comments Medication Refill Encounter Details Date Type Department Care Team (Late st Contact Info) Description 06/24/2024 Refill Family Medicine [address] [place] [phone] Roni Kenyon MD [address] [place] [address] [place] [phone] 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); Iliac artery thrombosis, left (HCC); 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 Active Ipratropium-Albute rol 0.5-2.5 (3) MG/3ML Inhalation Solution (Duoneb)Indication s:COPD, 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 determined (HCC) Inhale 3 mL by mouth every 6 hours as needed for Shortness of Breath. 372 mL 5 01/14/2021 Active Docusate Sodium 100 MG Oral Capsule (Colace)Indication s:Constipation, unspecified constipation type Take 1 Cap by mouth daily. 60 Cap 2 06/25/2021 Active Additional Information Patient taking differently:100 mg OralPRN, Reported on 12/12/2022 Calcium 200 MG Oral Tablet Take 200 mg by mouth in the morning. 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 200 Tablet 1 04/05/2024 Active Sertraline HCl 50 MG Oral Tablet (Zoloft)Indication s:Anxiety Take 1 Tablet by mouth in the morning. 90 Tablet 05/08/2024 Active Rosuvastatin Calcium 40 MG Oral Tablet (Crestor)Indicatio ns:Mixed dyslipidemia TAKE ONE TABLET BY MOUTH EVERY DAY AT BEDTIME 100 Tablet 1 05/14/2024 Active Isosorbide Mononitrate ER 30 MG Oral Tablet Extended Release 24 Hour (Imdur)Indications :Coronary artery calcification Take 0.5 Tablets by mouth in the morning. 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) TAKE ONE TABLET BY MOUTH EVERY MORNING 100 Tablet 3 06/25/2024 Active Clopidogrel Bisulfate 75 MG Oral Tablet (pLAVix)Indication s: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),Iliac artery thrombosis, left (HCC),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) TAKE ONE TABLET BY MOUTH EVERY MORNING 100 Tablet 1 09/21/2023 4 Discontinue d(Refill) documented as of this encounter (statuses as of 06/25/2024) Active Problems Problem Noted Date Diagnosed Date Other emphysema 12/13/2023 BMI 26.0-26.9,adult 11/08/2022 Emphysema of lung 07/07/2021 Aortic root dilatation 07/07/2021 Ascending aortic aneurysm 07/07/2021 Nonrheumatic mitral valve regurgitation 07/07/20 CKD (chronic kidney disease), stage II Overview: EGFR 66.5 Hx pulmonary embolism 07/16/2020 Primary 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 of both knees 08/01/2019 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 0 03/04/2019 Actinic keratosis 12/12/2018 Atherosclerosis of [place] 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[place] heart without angina pectoris 04/19/2018 Abdominal aortic aneurysm without rupture 2015 Homozygous MTHFR mutation 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 09/14/2015 Factor V Leiden mutation 12/30/2013 Overview: [...] as of this encounter (statuses as of 06/25/2024) Resolved Problems Problem Noted Date Diagnosed Date [...] as of this encounter (statuses as of 06/25/2024) Immunizations Name Administration Dates Next Due COVID-19 [...] encounter Miscellaneous Notes * Telephone Encounter - Kurtis Barragan [facility] - 06/25/2024 2:06 PM EDT Signed Prescriptions: Disp Refills Clopidogrel Bisulfate 75 MG Oral Tablet (p*100 Ta*3 Sig: TAKE ONE TABLET BY MOUTH EVERY MORNINGAuthorizing Provider: Rashmi BRICENO User: KURTIS BARRAGAN documented in this encounter Plan of Treatment Upcoming Encounters Date Type Department Care Team (Late st Contact Info) Description 06/27/2024 9:30 AM EDT Office Visit Orthopaedics [address] [phone] Edwin Staples MD [address] [place] [address] 07/09/2024 8:15 AM EDT Office Visit Ophthalmology, [facility] [address] [place] [address] Mau Deleon DO [address] [place] [address] 07/12/2024 11:40 AM EDT Office Visit Family Medicine [address] [phone] Yaz Terry [address] [place] [address] 09/18/2024 8:30 AM EST Appointment Vascular Lab [facility] [address] [place] [address] 09/18/2024 9:00 AM EST Office Visit Vascular Surg [facility] [address] [place] [address] Clayton Lee MD [address] [place] [address] 10/08/2024 9:30 AM EST Office Visit Cardiology [address] [place] [address] Jesus Alberto Montiel PA-C [address] [place] [address] 12/25/2024 8:40 AM EDT Office Visit Family Medicine [address] [place] [phone] Fran Briceno MD [address] [place] [address] [place] [address] Health Maintenance Due Date Last Done Comments DISCUSS TOBACCO CESSATION (REFER TO SMARTSET #3293) 1935 Alpha-1 Antitrypsin 11/23/1955 Depression Screening 04/23/2021 [...] this encounter Medical Devices Implanted Type Area Hand Clerical Verifier Device Identifier Shelf Expiration Date Model / Serial / Lot Graft Aaa Bif [id number] - [id number] - [id number] Implanted:Qty: 1 on 02/13/2015 by Clayton Lee MD at OR [facility] Aorta [employer] : VASCULAR 12/02/2016 [id number] / [id number] / Limb Contralat [id number] - [id number] - [id number] Implanted:Qty: 1 on 02/13/2015 by Clayton Lee MD at OR [facility] Aorta [employer] : VASCULAR 11/19/2016 [id number] / [id number] / Limb Contralat [id number] - [id number] - [id number] Implanted:Qty: 1 on 02/13/2015 by Clayton eLe MD at OR [facility] Aorta [employer] : VASCULAR [id number] / [id number] / Plug Vasc Ampl 16mm 9-Plug-016 - [id number] Implanted:Qty: 1 on 02/13/2015 by Clayton Lee MD at OR [facility] Aorta [employer] [facility] 9-PLUG-0 16 / / documented as of this encounter Visit Diagnoses Diagnosis 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) Primary hypercoagulable state Iliac artery thrombosis, 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 Care Teams Project Management Instructor Relationship Specialty Start Date End Date Fran Briceno MD [address] [place] [address] [place] [phone] PCP - General Family Medicine 12/13/23 documented as of this encounter
[2024-12-03] MEDS ORDERED: ACETAMINOPHEN 325 MG TAB PO PRN (17:30)
[2024-12-03] MEDS ORDERED: ONDANSETRON INJ 2 MG/ML 2 ML VIAL IV PRN (17:30)
[2024-12-03] MEDS: APIXABAN 5 MG TABLET PO SCH (22:01)
[2024-12-03] MEDS: busPIRone 5 MG TAB PO SCH (22:01)
[2024-12-03] MEDS: COLCHICINE 0.6 MG TAB PO SCH (22:01)
[2024-12-03] MEDS: DOCUSATE SODIUM 100 MG CAP PO SCH (22:01)
[2024-12-04 07:24] LABS: Hemoglobin 14.5 g/dl (14.0-18.0); Mean Corpuscular Hgb Conc 33.7 g/dL (32.0-36.0); Mean Corpuscular Volume 94.9 fL (80.0-100.0); Mean Platelet Volume 9.6 fL (9.4-12.4); Platelet Count 202 K/uL (130-400); RDW Coefficient of Variation 14.2 % (11.5-14.5); RDW Standard Deviation 49.7 fL (36.4-46.3); Red Blood Count 4.53 M/uL (4.70-6.10); White Blood Count 6.37 K/ul (4.8-10.8)
[2024-12-04 07:58] LABS: BUN Creatinine Ratio 13.8 (10-20); Calcium 8.8 mg/dl (8.6-10.3); Creatinine Clr Calc Pharmacy 75.4 ml/min; Potassium 3.7 mmol/L (3.5-5.1)
[2024-12-04] MEDS: ROSUVASTATIN CALCIUM 20 MG TAB PO SCH (08:03)
[2024-12-04] MEDS: SERTRALINE HCL 50 MG TABLET PO SCH (08:03)
[2024-12-04] MEDS: POLYETHYLENE (MIRALAX) 17 GM PACK PO SCH (08:03)
[2024-12-04] MEDS: allopurinoL 100 MG TAB PO SCH (08:03)
[2024-12-04] MEDS: CLOPIDOGREL BISULFATE 75 MG TAB PO SCH (08:04)
[2024-12-04] MEDS: SODIUM CHLORIDE 0.9% 500 ML IV ONE (11:24)
--- OUTSIDE RECORDS SUMMARY | 2024-12-04 14:55 | External Medical Summary | Summary of Care ---
Author Name Unknown Organization [facility] Address [address] [facility] [place] [address] Phone [phone] Care Team Providers Care Manager Decision Support Name Role Phone Fran Peres MD Primary Care Provide r Reason for Visit * Reason Comments Acute Encounter Details Date Type Department Care Team (Late st Contact Info) Description 12/03/2024 9:20 AM EDT Office Visit Family Medicine [address] [place] [phone] Fran Peres MD [address] [place] [address] [place] [phone] Low blood pressure reading*; Bug bite, initial encounter Allergies No known active allergiesdocumented as of this encounter (statuses as of 12/03/2024) Medications Cyanocobalamin (VITAMIN B-12) 6000 MCG SUBL [...] Release 24 Hour (toPROL XL)Indications:At herosclerosis of [place] coronary artery of [place] heart without angina pectoris TAKE 1 TABLET [...] ons: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),Homozygous MTHFR mutation [id number],Hx pulmonary embolism Take 1 Tablet by mouth in the morning and 1 Tablet before bedtime. 200 Tablet 1 10/23/2024 10:27 AM EST 5 Active predniSONE 20 MG Oral Tablet (Deltasone)Indica tions:Rib pain on left side One daily 10 Tablet 5 Active Rosuvastatin Calcium 40 MG Oral Tablet (Crestor)Indicati ons:Mixed dyslipidemia TAKE ONE TABLET BY MOUTH EVERY DAY AT BEDTIME 100 Tablet 11/27/2024 2:08 PM EDT 5 Active Hospital, Clinic, or Other Facility [...] as of this encounter (statuses as of 12/03/2024) Active Problems Problem Noted Date Diagnosed Date [...] Primary 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 of both knees 08/01/2019 intermediate current use of 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 0 03/04/2019 Actinic keratosis 12/12/2018 Atherosclerosis of [place] 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[place] heart without angina pectoris 04/19/2018 Abdominal aortic aneurysm without rupture 2015 Homozygous MTHFR mutation [id number] 09/14/2015 Factor V Leiden mutation 12/30/2013 Overview (12/30/2013): has one copy of Factor V Leiden mutation Mixed dyslipidemia 11/25/2009 GENERAL OSTEOARTHROSIS Tobacco use disorder Exudative age-related macula r degeneration of both eyes with active choroidal neovascularization documented as of this encounter (statuses as of 12/03/2024) Resolved Problems Problem Noted Date Diagnosed Date [...] as of this encounter (statuses as of 12/03/2024) Immunizations Name Administration Dates Next Due COVID-19 [...] Sign Reading Time Taken Comments Blood Pressure 77/47 12/03/2024 8:16 AM EDT Pulse 85 12/03/2024 8:16 AM EDT Temperature 35.6 C (96 F) 12/03/2024 8:16 AM EDT Respiratory Rate - - Oxygen Saturation - - Inhaled Oxygen Concentration - - Weight 101.9 kg (224 lb 9.6 oz) 12/03/2024 8:16 AM EDT Height - - Body Mass Index 27.34 10/23/2024 9:53 AM EST documented in this encounter Progress Notes * Fran Peres MD - 12/03/2024 8:37 AM EDT Subjective: HPI: Jeff Powers is a 89 year old male with hx of HLD, AAA, CKD II-III, factor V leiden mutation, hx of PE on coumadin, DJD, coronary artery calcification, R internal iliac embolization s/p AmplatzerVascular Plug3 and repair of AAA/DONIS aneurysms with [employer] Endurant device, emphysema with chronic hx of smoking seen for Pt is here for L leg lesion - he had a bite (unsure but likely bug bite) - 2 weeks ago - now having a "ring" around the site - no pain or erythema Incidentally noticed low BP - pt denied any abd pain or dark/bloody stool - fatigue for awhile - b/l cp for 1 year - denied any recent syncope Patient Active Problem List Diagnosis GENERAL OSTEOARTHROSIS Tobacco use disorder Mixed dyslipidemia 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) Homozygous MTHFR mutation 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 Abdominal aortic aneurysm without rupture (HCC) BMI 26.0-26.9,adult 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 Isosorbide Mononitrate ER 30 MG Oral Tablet [...] 1 Tablet before bedtime. 200 Tablet 1 predniSONE 20 MG Oral Tablet (Deltasone) One daily 10 Tablet 0 Rosuvastatin Calcium 40 MG Oral Tablet (Crestor) TAKE ONE TABLET BY MOUTH EVERY DAY AT BEDTIME 100 Tablet 0 Current Facility-Administered Medications Medication Dose [...] choroidal neovascularization (HCC) Factor V Leiden mutation (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) 09/18/2015 [facility] Internal hemorrhoids 07/24/2007 Macular degeneration (senile) of retina 06/26/2014 Nonexudative age-related macular degeneration, bilateral, intermediate dry stage Other seborrheic keratosis 06/17/2002 maulik-surgical removal under local anesthesia Saddle embolus of pulmonary artery ([facility]) 12/23/2013 Admitted [place] Tobacco use disorder Vitamin D deficiency 11/25/2009 [...] 60% ENDOVASC ABDO REPR W/BI DEVICE 02/13/2015 [facility] ENDOVASC ABDO REPR W/BI DEVICE N/A 02/13/2015 Repair of aorta and iliac aneurysms with [employer] Endurant device (Main body: [id number], Right iliac limb extension: -15, Left iliac limb -402) by Dr. Lee. FEM/POP ARTERY REVASC W/ STENT+ANGIOPLASTY Left 09/22/2015 FEM/POP ARTERY REVASC W/ STENT+ANGIOPLASTY performed by Clayton Lee MD at [facility] INJECTION OF EYE DRUG Right 07/05/2017 # [...] Right 07/17/2018 # 7 Eylea OD, Dr. Cessna INJECTION OF EYE DRUG Left 07/17/2018 # [...] performed by Clayton Lee MD at [facility] IR EMBOLIZATION ARTERIAL NON HEMMORHAGE Right 02/13/2015 right iliac IR EMBOLIZATION ARTERIAL NON HEMMORHAGE Right 02/13/2015 Embolization of right internal iliac artery with 16 mm Amplatzer Vascular Plug by Dr. Lee. IR FILTER REMOVAL VENA CAVA 01/27/2014 IR PLACEMENT IVC FILTER 12/23/2013 [facility] LIGATION/BIOPSY OF TEMPORAL ARTERY Bilateral 09/28/2018 no vasculitis seen MISCELLANEOUS ORDER ([facility] ONLY) Bilateral 07/05/17-07/05/18 EYLEA OU CONSENT SIGNED, Dr. Deleon MISCELLANEOUS ORDER ([facility] ONLY) Bilateral 07/17/2018-07/17/2019 EYLEA CONSENT OU SIGNED; DR LUIS M CARDENASCELLANEOUS ORDER ([facility] ONLY) Bilateral 07/25/2019-07/25/2020 EYLEA CONSENT [...] performed by Clayton Lee MD at [facility] US AAA SCREEN, VASCULAR LAB N/A 10/05/2016 [...] of patient's allergies indicates: No Known Allergies Family History Problem Relation Name Age of Onset Diabetes Mother Stroke Father Social History Tobacco Use Smoking status: Every Day Current packs/day: 0.00 Average packs/day: 0.3 packs/day for 53.0 years (13.3 ttl pk-yrs) Types: Cigars, Cigarettes Start date: 04/27/1968 Last attempt to quit: 04/27/2021 Years since quittin.6 Smokeless tobacco: Never Tobacco comments: 10/23/2024 Smoke cigars about 2 packs per week,declined pamphlet 08/31/22 4-5 little cigars, declined pamphlet Substance Use Topics Alcohol use: Yes Comment: 3-4 days a week Vaping/E-Cigarette Use Vaping/E-Cigarette Use Never User Vaping/E-Cigarette Substances Vaping/E-Cigarette Devices ROS: -Per HPI OBJECTIVE: BP 77/47 | Pulse 85 | Temp 96 F (35.6 C) | Wt 224 lb 9.6 oz (101.9 kg) | BMI 27.34 kg/m | BSA 2.34 m PHYSICAL EXAM: Vitals are reviewed General:. NAD, well developed HEENT:. Normal Conjunctiva, EOMI Cardiac:. Normal S1, S2, no murmur Lungs:. CTA, no wheezing or crackles Skin: L leg: ring shaped ecchymosis, no erytheam, no TTP Psych:. AAOx3, normal affect ASSESSMENT/PLAN: Checked the BP multiple times - lowest one was 60/30 (manually) - discussed multiple time regarding calling the ambulance but pt refused - discussed it pt's - then pt agreed to go the ER via ambulance Skin lesion is likely from spider bite - no sign of infection Low blood pressure reading (Primary) Bug bite, initial encounter Fran Pe[place] [phone] documented in this encounter Nursing Notes * Maria Fernanda Kulkarni CMA - 12/03/2024 8:15 AM EDT He doesn't know what bit him. It sounds like an insect bit. Left lower leg. documented in this encounter Plan of Treatment Upcoming Encounters Date Type Department Care Team (Late st Contact Info) Description 12/23/2024 11:45 AM EDT Office Visit Ophthalmology, [facility] [address] [place] [phone] Mau Deleon, [address] [place] [phone] 12/25/2024 8:40 AM EDT Office Visit Family Medicine [address] [place] [phone] Farn Peres MD [address] [place] [address] [place] [phone] 01/06/2025 7:15 AM EDT Hospital Encounter [facility], OPERATING ROOM [facility] [address] [facility] [place] [phone] Walt Raphael MD [address], [place] [phone] 01/06/2025 7:15 AM EDT - 01/06/2025 10:25 AM EDT Surgery [facility], OPERATING ROOM [facility] [address] [place] [facility] [place] [phone] Walt Raphael MD [address], [place] [phone] ENDOVASCULAR REPAIR [facility] RADIOLOGY SUPERVISION & INTERPRETATION ONE ENDOPROSTHESIS 01/22/2025 9:15 AM EDT Imaging Radiology [address] [place] [phone] 01/29/2025 10:30 AM EDT Office Visit Vascular Surgery, [facility] [address] [place] [phone] Walt Raphael MD [address] [facility] [place], [place] [id number] 08/12/2025 9:30 AM EST Office Visit Cardiology [address] [place] [address] Jesus Alberto Montiel PA-C [address] [place] [phone] Scheduled Procedures Name Priority Associated Diagnoses Date/Ti me ENDOVASCULAR REPAIR [employer] 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) Pre-op testing 01/06/2025 7:15 AM EDT OPEN BRACHIAL ARTERY EXPOSURE FOR ENDOVASCULAR PROSTHESIS 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) Aortic root dilatation (HCC) CKD (chronic kidney disease), 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) intermediate current use of 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 Mixed dyslipidemia History of endovascular stent graft for abdominal aortic aneurysm 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) Pre-op testing 01/06/2025 7:15 AM EDT Health Maintenance Due Date Last Done Comments DISCUSS TOBACCO CESSATION (REFER TO SMARTSET #[id number]) 1935 Alpha-1 Antitrypsin 11/23/1955 Depression Screening 04/23/2021 [...] this encounter Medical Devices Implanted Type Area Target Setter Device Identifier Shelf Expiration Date Model / Serial / Lot Graft Aaa Bif [id number] - [id number] - [id number] Implanted:Qty: 1 on 02/13/2015 by Clayton Lee MD at [facility] Aorta [employer] : VASCULAR 12/02/2016 [id number] / [id number] / Limb Contralat [id number] - [id number] - [id number] Implanted:Qty: 1 on 02/13/2015 by Clayton Lee MD at [facility] Aorta [employer] : VASCULAR 11/19/2016 [id number] / [id number] / Limb Contralat [id number] - [id number] - [id number] Implanted:Qty: 1 on 02/13/2015 by Clayton Lee MD at [facility] Aorta [employer] : VASCULAR [id number] / [id number] / Plug Vasc Ampl 16mm 9-[id number]-016 - [id number] Implanted:Qty: 1 on 02/13/2015 by Clayton Lee MD at [facility] Aorta [id number] 9-PLUG-[id number] 16 / / documented as of [...] (HCC) Primary hypercoagulable state 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 of 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 Mixed dyslipidemia Mixed hyperlipidemia History of endovascular stent graft for abdominal aortic aneurysm Blood vessel replaced by other means Pre-op testing Preoperative examination, unspecified Low blood pressure reading- Primary Nonspecific low blood pressure reading Bug bite, initial encounter 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 Care Teams Manager Decision Support Relationship Specialty Start Date End Date Fran Peres MD [address] [place] [address] [place] [phone] PCP - General Family Medicine 12/13/23 documented as of this encounter
--- NOTE | 2024-12-04 17:29 | Discharge Summary ---
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 Patient was asymptomatic. Evaluation in the emergency room was unremarkable for acute findings. Blood pressure rapidly improved with hydration. Observe in a monitored unit Monitor blood pressure Hold antihypertensive medications Continue with chronic anticoagulation with Eliquis Anticipate if blood pressure remains stable can be discharged home tomorrow Notes For Next Care Provider Patient 89-year-old gentleman who initially presented to his PCPs office earlier today to evaluate a bite on his leg. Sent to ED for asymptomatic hypotension. Admitted to medicine for asymptomatic hypotension. Patient remained asymptomatic throughout observation stay. Given fluids for orthostats which were asymptomatic as well. On 12/04/2024 patient medically stable for discharge. Medication Changes From Visit -hold metoprolol for a few days (see below) Admission HPI Per Admitting Provider Patient 89-year-old gentleman who initially presented to his PCPs office earlier today to evaluate a bite on his leg. In the office he was noted to have extremely low blood pressure. Multiple readings showed a systolic less than 100 and at 1 point had a systolic of 60. Patient apparently was mentating normally throughout this time. Denied any specific symptoms. His PCP sent him to the emergency room for further evaluation. When patient presented to the emergency department his initial systolic blood pressure was 98. His blood pressure significantly improved with fluid resuscitation. Laboratory and imaging studies performed in the emergency room were unremarkable. However due to the patient's initial clinical presentation was referred to our service for further evaluation. Time of my evaluation the patient will denies any symptoms. No lightheadedness and dizziness, no cough or cold symptoms, states that he is chronically short of breath but this is not gotten any worse over the past few days. He describes some chronic bilateral musculoskeletal chest pain. He states has been eating and drinking well. No new problems with the bowels or bladder. No new swelling his hands arms legs or feet. There was learned that he did have a dog bite it was a relatives dog that is up-to-date on all his vaccines. Imaging of the leg in the ED showed no acute findings. Patient was concerned because there was a ring around the dog puncture wound. Tickborne illness panel in the ED was negative. Patient reports that he did take his usual medications this morning. Denies that he may have taken any extra blood pressure medications. States he lives independently with his . Discharge Exam Gen: A&O 3 NAD HEENT: NCAT, EOMI, not icteric. External ears normal. No rhinorrhea. Moist mucous membranes. Hard of hearing Neck: Supple, full range of motion, no observable masses, No meningeal sign. Lungs: No Respiratory distress. CV: RRR, no edema. Abdomen: Soft, nondistended, No rebound tenderness. MSK: No joint swelling, no redness. Skin: No rashes, petechiae, lesions. Normal color per patient. Neuro: Normal Gait, Grossly intact. Psych: Appropriate for situation. Updated Medication List Medication Instructions Recorded Confirmed Type ascorbic acid (vitamin C) 500 mg 500 mg PO Q OTHER DAY 09/26/18 12/03/24 History tablet clopidogrel 75 mg tablet (Plavix) 75 mg PO DAILY 09/26/18 12/03/24 History acetaminophen 325 mg tablet 650 mg PO Q4H PRN Pain 06/02/21 12/03/24 History cholecalciferol (vitamin D3) 25 25 mcg PO DAILY 06/02/21 12/03/24 History mcg (1,000 unit) tablet cyanocobalamin (vitamin B-12) 1,000 mcg PO DAILY 06/02/21 12/03/24 History 1,000 mcg tablet omega-3 fatty acids 1,000 mg 1,000 mg PO DAILY 06/02/21 12/03/24 History capsule polyethylene glycol 3350 17 17 g PO DAILY 06/02/21 12/03/24 History gram/dose oral powder (Miralax) thiamine HCl (vitamin B1) 100 mg 500 mg PO DAILY 06/02/21 12/03/24 History tablet allopurinol 100 mg tablet 100 mg PO DAILY 12/03/24 12/03/24 History apixaban 5 mg tablet (Eliquis) 5 mg PO BID 12/03/24 12/03/24 History buspirone 10 mg tablet 10 mg PO BID 12/03/24 12/03/24 History colchicine 0.6 mg tablet 0.6 mg PO BID 12/03/24 12/03/24 History metoprolol succinate 25 mg 25 mg PO DAILY 12/03/24 12/03/24 History tablet,extended release 24 hr rosuvastatin 40 mg tablet 40 mg PO DAILY 12/03/24 12/03/24 History sertraline 50 mg tablet 50 mg PO DAILY 12/03/24 12/03/24 History Hospital Stay Data Consultations 12/03/24 15:09 ED Decision to Admit Stat Pending Results Patient Have Any Pending Studies at Discharge: No Discharge Instructions Given to Patient (Per Discharging Provider) 1. Please follow up with PCP. 2. Please stay hydrated! Total Time Total Time Spent Total Time Spent (In Minutes): I spent a total of 35 minutes in direct patient care, including [id number] time with the patient and/or family, reviewing medical records, ordering and reviewing diagnostic tests, and coordinating care with other healthcare providers. This time includes: history taking, physical examination, medical decision making, counseling, ECG interpretation, imaging interpretation, lab interpretation, orders, and education, excluding time spent in the performance of separately billed services.
[2024-12-06 16:38] LABS: Babesia microti DNA Not Detected (Not Detected)
== END 2024-12-04 14:29 | disposition home or self-care (01) ==
LOC: ED 09:58 → 2N 09:58 → SUATTDRO 15:31 → 2N 16:49

== ENCOUNTER 2025-01-14 18:46 | Inpatient (IN) ==
--- NOTE | 2025-01-14 19:42 | Emergency Department Note ---
Impression & Plan Hypoxia, SOB (shortness of breath), Pneumonia, Parainfluenza infection, Hypomagnesemia, Elevated troponin ED Provider Note NAME: BYRON MURRAY AGE: 89 SEX: M : 1935 ARRIVES VIA: Walk-In INFORMANT: [Patient][daughter] ED PROVIDER(S): [Bart Kramer MD] CHIEF COMPLAINT: Shortness of breath HISTORY OF PRESENT ILLNESS: The patient is a 89-year-old male who 8 days ago underwent a surgery for an abdominal aortic aneurysm. The family believes that the area was stented. He was in the hospital for 1 day. He recovered fine. A few days ago, he began with a cough and some congestion. Now things have moved to his chest and he feels short of breath. No fever. The patient does not have any diagnosed lung disease per the family however, he is a chronic smoker. As per our nursing staff, the patient's O2 saturation was low at 88%, he was placed on oxygen. He does not wear oxygen outpatient. PMHx/PSHx/Social Hx: See Below PHYSICAL EXAM: GENERAL: Patient is in no acute distress. HEENT: No acute trauma, normocephalic atraumatic, mucous membranes moist, no nasal congestion. NECK: No stridor, no adenopathy, no meningismus, trachea is midline. LUNGS: Moist cough noted, diminished breath signs bilaterally. Wheezing and crackles bilaterally. HEART: Without murmurs gallops or rubs, regular rate and rhythm. Heart tones quite distant. ABDOMEN: Soft, nontender, no peritonitis. EXTREMITIES: No cyanosis, full range of motion of all the joints without pain or difficulty. NEUROLOGIC: Oriented x 3, no acute motor or sensory deficits, no focal weakness. SKIN: No jaundice, no diaphoresis. DIFFERENTIAL DIAGNOSIS: Bronchitis or pneumonia, CHF, COPD flare, viral illness, among others. EMERGENCY DEPARTMENT PROCEDURES: MEDICAL DECISION MAKING: There is no leukocytosis or concerning anemia. There is a normal platelet count. No bandemia. No coagulopathy. VBG does not show acidosis or CO2 retention. Magnesium was low at 1.6, no renal failure. No concerning liver enzyme elevation. ECG showed a sinus tachycardia, no ST elevation. Cardiac enzyme testing x 1 is somewhat elevated, this troponin elevation could be secondary to cardiac injury or mismatch from his hypoxia. Chest x-ray shows what appears to be congestion and potential pneumonia. BNP was elevated consistent with potential fluid overload. Respiratory bio fire was positive for parainfluenza. On exam, the patient appeared somewhat short of breath. He was wheezing with crackles bilaterally. A wet cough was noted. He was initially hypoxic without O2 supplementation. The patient received IV saline for hydration. He was given IV magnesium. He received IV ceftriaxone. He was given a DuoNeb, a second DuoNeb was administered. The patient presents with cough and congestion. He was found to be hypoxic. He very likely has a pneumonia which has flared up some underlying lung disease. He did test positive for parainfluenza. Given his findings and presentation, hospitalization is indicated. Patient does seem to be improved with the treatment administered. I did speak with the patient and family, I did speak with case management, the on-call hospitalist was consulted. Prior/Outside records/notes reviewed: None ECG per my interpretation: Indication was shortness of breath. The ECG shows a sinus tachycardia with a first-degree AV block. The rate is 104. There is no acute ST elevation, no PVCs. The QTc is 441. Continuous Cardiac Monitoring per my interpretation: An order was placed for continuous cardiac monitoring. The monitor shows a rate of 94 with sinus rhythm with a first-degree block.. Imaging/x-ray results per my interpretation: Chest x-ray shows some congestion in the bases, especially at the left. Pneumonia was likely. No pneumothorax. Chronic Medical/Social conditions affecting care: Advanced age. Care/Management discussed with: Case management, and hospitalist. Level of care consideration(s): After review of the information above and other included data: --I believe the patient requires escalation of care to admission Critical Care Note: I have personally spent 41 minutes of critical care time in the direct management of this patient. This includes bedside care, interpretation of diagnostic studies, and testing, discussion with consultants, patient, and family members, and other required patient management activities. This 41 minutes is in excess of all separately billable procedures. DISPOSITION: Admission Past Med/Surg History Problem List Elevated troponin (Acute) Hypomagnesemia (Acute) Parainfluenza infection (Acute) Pneumonia (Acute) SOB (shortness of breath) (Acute) Hypoxia (Acute) Weakness (Acute) Acute hypotension (Acute) Transient hypotension Neuropathy History of alcohol use Memory impairment (Acute) Abdominal aortic ectasia Dyslipidemia GERD (gastroesophageal reflux disease) Macular degeneration History of shingles 2007. 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 Coronary atherosclerosis Previously noted on chest CT Elevated sed rate Surgical History (Updated 01/04/25 @ 00:08 by Shahram Oakes) S/P ORIF (open reduction internal fixation) fracture 05/18/2021 History of tooth extraction History of cystoscopy Social History Smoking Status: Current every day smoker Cigarettes Per Day: 1/3 ppd x 42yrs; Second Hand Exposure: No; Do You Dip or Chew Tobacco: No; Hx Alcohol Use: No Hx Substance Use: No Preferred Language: Spanish Communication Ability: Effective Probation Supervisor Required: No Beliefs That Will Affect Care: None Current Living Situation: Spouse Current Living Situation Comment: Home with Feels Safe at Home: Yes Assistive Devices: None Allergies Allergies Allergy/AdvReac Type Severity Reaction Status Date / Time No Known Allergies Allergy Verified 01/14/25 20:57 Home Meds Home Medications Medication Instructions Recorded Confirmed ascorbic acid (vitamin C) 500 mg 500 mg PO Q OTHER DAY 09/26/18 01/14/25 tablet clopidogrel 75 mg tablet (Plavix) 75 mg PO DAILY 09/26/18 01/14/25 allopurinol 100 mg tablet 100 mg PO QAM 12/03/24 01/14/25 apixaban 5 mg tablet (Eliquis) 5 mg PO BID 12/03/24 01/14/25 buspirone 10 mg tablet 10 mg PO BID 12/03/24 01/14/25 colchicine 0.6 mg tablet 0.6 mg PO BID 12/03/24 01/14/25 metoprolol succinate 25 mg 12.5 mg PO QAM 12/03/24 01/14/25 tablet,extended release 24 hr rosuvastatin 40 mg tablet 40 mg PO HS 12/03/24 01/14/25 calcium carbonate (Calcium Antacid) 200 mg PO QAM 01/14/25 01/14/25 cholecalciferol (vitamin D3) 50 50 mcg PO DAILY 01/14/25 01/14/25 mcg (2,000 unit) capsule (Vitamin D3) cyanocobalamin (vitamin B-12) 6,000 mcg sublingual DAILY 01/14/25 01/14/25 5,000 mcg/mL sublingual drops (Vitamin B-12) fluticasone propionate 50 2 spray intranasal DAILY 01/14/25 01/14/25 mcg/actuation nasal spray,suspension folic acid 1 mg tablet 1 mg PO Q OTHER DAY 01/14/25 01/14/25 garlic 500 mg capsule 500 mg PO Q OTHER DAY 01/14/25 01/14/25 isosorbide mononitrate 30 mg 15 mg PO QA 01/14/25 01/14/25 tablet,extended release 24 hr loratadine 10 mg tablet 10 mg PO [facility] 01/14/25 01/14/25 [id number] acid 200 1 tab PO [facility] 01/14/25 01/14/25 mcg-lutein 137.5 mcg chewable tablet (Adult Multivitamin (w-lutein)) pantoprazole 40 mg tablet,delayed 40 mg PO DAILYBB 01/14/25 01/14/25 release sertraline 100 mg tablet 100 mg PO [facility] 01/14/25 01/14/25 vit C 250 mg-vit E 90 mg-zinc 40 1 tab PO QA 01/14/25 01/14/25 mg-copper 1 [id number]-iomnru capsule (PreserVision AREDS-2) Results & Data (ED) Vital Signs Vital Signs - 24 hr 01/14/25 18:49 01/14/25 19:11 01/14/25 19:11 Temperature 36.8 C Temperature Source Oral Pulse Rate 106 H Pulse Rate [Apical] 101 H Respiratory Rate 20 16 Respiratory Effort / Characteristics Spontaneous Short of Breath Spontaneous Respiratory Depth Normal Respiratory Pattern Regular Blood Pressure 108/71 Blood Pressure [Right Arm] 116/79 Blood Pressure Mean 83 Blood Pressure Mean [Right Arm] 91 Pulse Oximetry 90 88 L 92 Oxygen Delivery Method Room Air Nasal Cannula Nasal Cannula Oxygen Flow Rate 0 2 Sepsis Recent Fever Within 48 Hours No Sepsis New/Unexplained Change in Mental Status N/A Sepsis Action Taken by Nursing No Action Required Oxygen Flow Rate - Titration 2 Pulse Oximetry Post Tiitration 93 01/14/25 19:13 01/14/25 20:02 01/14/25 21:00 Temperature Temperature Source Pulse Rate 94 H 92 H Pulse Rate [Apical] 88 Respiratory Rate 16 16 Respiratory Effort / Characteristics Non-Labored Spontaneous Respiratory Depth Respiratory Pattern Blood Pressure Blood Pressure [Right Arm] 126/72 Blood Pressure Mean Blood Pressure Mean [Right Arm] 90 Pulse Oximetry 92 93 Oxygen Delivery Method Nasal Cannula Room Air Oxygen Flow Rate 2 Sepsis Recent Fever Within 48 Hours Sepsis New/Unexplained Change in Mental Status Sepsis Action Taken by Nursing Oxygen Flow Rate - Titration Pulse Oximetry Post Tiitration Home Medications Current Medication List: was personally reviewed by me Laboratory Data Attestation: I reviewed the patient's lab results. 01/15/25 00:17 01/14/25 19:06 Lab Results 01/14/25 01/14/25 01/14/25 Range/Units 19:06 19:53 20:04 WBC 10.12 (4.8-10.8) K/ul RBC 4.83 (4.70-6.10) M/uL Hgb 15.5 (14.0-18.0) g/dl Hct 44.4 (42.0-52.0) % MCV 91.9 (80.0-100.0) fL MCH 32.1 (25.0-34.0) pg MCHC 34.9 (32.0-36.0) g/dL RDW Std Deviation 45.4 (36.4-46.3) fL RDW Coeff of Sam 13.4 (11.5-14.5) % Plt Count 228 (130-400) K/uL MPV 9.1 L (9.4-12.4) fL Immature Gran % (Auto) 0.4 % Neut % (Auto) 87.6 % Lymph % (Auto) 5.0 % Gove % (Auto) 6.8 % Eos % (Auto) 0.0 % Baso % (Auto) 0.2 % Neut # (Auto) 8.86 H (1.40-6.50) K/uL Lymph # (Auto) 0.51 L (1.20-3.40) K/uL Gove # (Auto) 0.69 H (0.11-0.59) K/uL Eos # (Auto) 0.00 (0.00-0.50) K/uL Baso # (Auto) 0.02 (0.00-0.20) K/uL Immature Gran # (Auto) 0.04 (0.01-0.20) K/uL PT 10.5 (9.0-12.0) Seconds INR 1.0 (0.9-1.1) APTT 30 (21-31) Seconds PTT Ratio 1.1 VBG pH (7.36-7.41) VBG pCO2 (38-50) mmHg VBG pO2 mmHg VBG HCO3 mmol/L VBG O2 Saturation % VBG Base Excess mEq/L Sodium 137 (136-145) mmol/L Potassium 3.6 (3.5-5.1) mmol/L Chloride 102 (98-107) mmol/L Carbon Dioxide 28 (21-32) mmol/L Anion Gap 7 (3-11) BUN 15 (6-23) mg/dl Creatinine 0.83 (0.6-1.4) mg/dl Est Cr Clr Drug Dosing 77.0 ml/min eGFR 84.71 BUN/Creatinine Ratio 18.1 (10-20) Glucose 126 H (70-99(Fasting)) mg/dl Lactate 1.3 (0.4-2.0) mmol/L Calcium 9.1 (8.6-10.3) mg/dl Magnesium 1.6 L (1.7-2.4) mg/dl Total Bilirubin 0.6 (0.2-1.0) mg/dl AST 33 (13-39) U/L ALT 25 (7-52) U/L Alkaline Phosphatase 51 (34-104) U/L Troponin I High Sens 29.6 H (0-20) pg/ml B-Natriuretic Peptide 232 H (0-100) pg/ml Total Protein 6.6 (6.0-8.3) gm/dl Albumin 3.8 (3.4-5.0) gm/dl Globulin 2.8 (2.5-4.0) gm/dl Albumin/Globulin Ratio 1.4 (0.9-2) Adenovirus (PCR) Not Detected (NotDetected) B. pertussis DNA (PCR) Not Detected (NotDetected) B.parapertussis DNA PCR Not Detected (NotDetected) C. pneumoniae DNA (PCR) Not Detected (NotDetected) Coronavirus OC43 (PCR) Not Detected (NotDetected) Coronavirus HKU1 (PCR) Not Detected (NotDetected) Coronavirus 229E (PCR) Not Detected (NotDetected) SARS-CoV-2 (PCR) Not Detected (NotDetected) Coronavirus NL63 (PCR) Not Detected (NotDetected) Human Metapneumovir PCR Not Detected (NotDetected) Influenza Type A (PCR) Not Detected (NotDetected) Influenza Type B (PCR) Not Detected (NotDetected) M. pneumoniae (PCR) Not Detected (NotDetected) Parainfluenza 1 (PCR) Not Detected (NotDetected) Parainfluenza 2 (PCR) Not Detected (NotDetected) Parainfluenza 3 (PCR) DETECTED A (NotDetected) Parainfluenza 4 (PCR) Not Detected (NotDetected) RSV (PCR) Not Detected (NotDetected) Entero/Rhino (PCR) Not Detected (NotDetected) 01/14/25 Range/Units 20:26 WBC (4.8-10.8) K/ul RBC (4.70-6.10) M/uL Hgb (14.0-18.0) g/dl Hct (42.0-52.0) % MCV (80.0-100.0) fL MCH (25.0-34.0) pg MCHC (32.0-36.0) g/dL RDW Std Deviation (36.4-46.3) fL RDW Coeff of Sam (11.5-14.5) % Plt Count (130-400) K/uL MPV (9.4-12.4) fL Immature Gran % (Auto) % Neut % (Auto) % Lymph % (Auto) % Gove % (Auto) % Eos % (Auto) % Baso % (Auto) % Neut # (Auto) (1.40-6.50) K/uL Lymph # (Auto) (1.20-3.40) K/uL Gove # (Auto) (0.11-0.59) K/uL Eos # (Auto) (0.00-0.50) K/uL Baso # (Auto) (0.00-0.20) K/uL Immature Gran # (Auto) (0.01-0.20) K/uL PT (9.0-12.0) Seconds INR (0.9-1.1) APTT (21-31) Seconds PTT Ratio VBG pH 7.40 (7.36-7.41) VBG pCO2 44 (38-50) mmHg VBG pO2 28 mmHg VBG HCO3 27 mmol/L VBG O2 Saturation < 60.0 % VBG Base Excess 2.0 mEq/L Sodium (136-145) mmol/L Potassium (3.5-5.1) mmol/L Chloride (98-107) mmol/L Carbon Dioxide (21-32) mmol/L Anion Gap (3-11) BUN (6-23) mg/dl Creatinine (0.6-1.4) mg/dl Est Cr Clr Drug Dosing ml/min eGFR BUN/Creatinine Ratio (10-20) Glucose (70-99(Fasting)) mg/dl Lactate (0.4-2.0) mmol/L Calcium (8.6-10.3) mg/dl Magnesium (1.7-2.4) mg/dl Total Bilirubin (0.2-1.0) mg/dl AST (13-39) U/L ALT (7-52) U/L Alkaline Phosphatase (34-104) U/L Troponin I High Sens 37.3 H (0-20) pg/ml B-Natriuretic Peptide (0-100) pg/ml Total Protein (6.0-8.3) gm/dl Albumin (3.4-5.0) gm/dl Globulin (2.5-4.0) gm/dl Albumin/Globulin Ratio (0.9-2) Adenovirus (PCR) (NotDetected) B. pertussis DNA (PCR) (NotDetected) B.parapertussis DNA PCR (NotDetected) C. pneumoniae DNA (PCR) (NotDetected) Coronavirus OC43 (PCR) (NotDetected) Coronavirus HKU1 (PCR) (NotDetected) Coronavirus 229E (PCR) (NotDetected) SARS-CoV-2 (PCR) (NotDetected) Coronavirus NL63 (PCR) (NotDetected) Human Metapneumovir PCR (NotDetected) Influenza Type A (PCR) (NotDetected) Influenza Type B (PCR) (NotDetected) M. pneumoniae (PCR) (NotDetected) Parainfluenza 1 (PCR) (NotDetected) Parainfluenza 2 (PCR) (NotDetected) Parainfluenza 3 (PCR) (NotDetected) Parainfluenza 4 (PCR) (NotDetected) RSV (PCR) (NotDetected) Entero/Rhino (PCR) (NotDetected) Administered Medications Discontinued Medications Albuterol (Albut/Ipratrop 3mg/0.5mg Neb 3 Ml Vial) 3 ml NEB NOW STA; Protocol Stop: 01/14/25 19:31 Last Admin: 01/14/25 20:00 Dose: 3 ml Documented By: XENIA Albuterol (Albut/Ipratrop 3mg/0.5mg Neb 3 Ml Vial) 3 ml NEB NOW STA; Protocol Stop: 01/14/25 20:44 Last Admin: 01/14/25 20:49 Dose: 3 ml Documented By: XENIA Benzonatate (Benzonatate 100 Mg Capsule) 100 mg PO NOW ONE Stop: 01/14/25 21:36 Last Admin: 01/14/25 23:34 Dose: 100 mg Documented By: CASTRO Ceftriaxone Sodium (Rocephin) 2,000 mg in 50 mls @ 100 mls/hr IV NOW STA Stop: 01/14/25 20:28 Last Infusion: 01/14/25 20:55 Dose: Infused Documented By: Admin: 01/14/25 20:07 Dose: 100 mls/hr Documented By: XENIA Magnesium Sulfate/Dextrose (Magnesium Sulfate / D5w) 1 gm in 100 mls @ 100 mls/hr IV NOW STA Stop: 01/14/25 21:14 Last Infusion: 01/14/25 22:10 Dose: Infused Documented By: Admin: 01/14/25 20:48 Dose: 100 mls/hr Documented By: XENIA Sodium Chloride (Nss) 500 mls @ 999 mls/hr IV .Q31M ONE Stop: 01/14/25 20:46 Last Infusion: 01/14/25 22:09 Dose: Infused Documented By: Admin: 01/14/25 20:51 Dose: 999 mls/hr Documented By: XENIA Doxycycline Hyclate 100 mg/ (Dextrose) 100 mls @ 50 mls/hr IV NOW STA Stop: 01/14/25 22:50 Last Admin: 01/14/25 20:55 Dose: Not Given Documented By: XENIA Thiamine HCl 100 mg/ Syringe 10 mls @ 2 mls/min IV NOW STA Stop: 01/14/25 21:03 Last Admin: 01/14/25 21:04 Dose: 2 mls/min Documented By: XENIA Ioversol (Optiray 320 100ml) 100 ml IV ONCE ONE Stop: 01/14/25 23:49 Last Admin: 01/14/25 23:48 Dose: 93 ml Documented By: JOHN Methylprednisolone (Methylprednisolone 125 Mg/2 Ml Vial) 60 mg IV NOW STA Stop: 01/14/25 19:31 Last Admin: 01/14/25 19:58 Dose: 60 mg Documented By: XENIA Nitroglycerin (Nitroglycerin Sl 0.4 Mg/Tab Tab) 0.4 mg SL NOW STA Stop: 01/14/25 21:33 Last Admin: 01/14/25 23:19 Dose: Not Given Documented By: NAB Imaging Data Radiologist's Impression: Chest X-Ray 01/14/25 19:30 Exam(s): XR CXR 1 VIEW EXAM: XR Chest, 1 View CLINICAL HISTORY: Reason for exam: Dyspnea. TECHNIQUE: Frontal view of the chest. COMPARISON: Chest radiograph on 12/03/2024 FINDINGS: Hardware: None. Lungs/pleura: Prominence interstitial markings throughout the lungs. No pleural effusion or pneumothorax. Heart/mediastinum: Atherosclerotic changes of the aorta. No cardiomegaly. Soft tissues: Unremarkable. Bones: No acute fracture. Upper abdomen: Normal. IMPRESSION: Prominent interstitial markings throughout the lungs may be secondary to chronic lung changes versus infectious/inflammatory process. Electronically signed by: Aquiles Colin M.D. 01/14/25 22:38 PM Discharge Plan Visit Data Chief Complaint: Shortness of Breath/Dyspnea Stated Complaint: SOB,S/P SURG ED Provider: Bart Kramer Discharge Problem: Hypoxia, SOB (shortness of breath), Pneumonia, Parainfluenza infection, Hypomagnesemia, Elevated troponin Patient Disposition: Admitted As Inpatient Condition: Serious Discharge Instructions Interventions: ED Discharge Assessment Last Done: 01/14/25 22:15 Discharge Problem: Pneumonia Qualifiers: Pneumonia type: due to unspecified organism Laterality: left Lung location: u nspecified part of lung Qualified Code(s): J18.9 - Pneumonia, unspecified organism
[2025-01-14 19:48] LABS: Basophils # (auto) 0.02 K/uL (0.00-0.20); Basophils % (auto) 0.2 %; Hematocrit (blood only) 44.4 % (42.0-52.0); Hemoglobin 15.5 g/dl (14.0-18.0); Immature Granulocytes # (auto) 0.04 K/uL (0.01-0.20); Immature Granulocytes % (auto) 0.4 %; Lymphocytes # (auto) 0.51 K/uL (1.20-3.40); Mean Corpuscular Hemoglobin 32.1 pg (25.0-34.0); Mean Corpuscular Hgb Conc 34.9 g/dL (32.0-36.0); Mean Corpuscular Volume 91.9 fL (80.0-100.0); Mean Platelet Volume 9.1 fL (9.4-12.4); Monocytes # (auto) 0.69 K/uL (0.11-0.59); Monocytes % (auto) 6.8 %; Neutrophils # (auto) 8.86 K/uL (1.40-6.50); Neutrophils % (auto) 87.6 %; Platelet Count 228 K/uL (130-400); RDW Coefficient of Variation 13.4 % (11.5-14.5); RDW Standard Deviation 45.4 fL (36.4-46.3); Red Blood Count 4.83 M/uL (4.70-6.10); White Blood Count 10.12 K/ul (4.8-10.8)
[2025-01-14] MEDS: methylPREDNISolone 125 MG/2 ML VIAL IV STA (19:58)
[2025-01-14] MEDS: ALBUT/IPRATROP 3MG/0.5MG NEB 3 ML VIAL NEB STA ×2 (20:00→20:49)
[2025-01-14 20:06] LABS: Albumin Globulin Ratio 1.4 (0.9-2); Albumin Level 3.8 gm/dl (3.4-5.0); BUN Creatinine Ratio 18.1 (10-20); Bilirubin,Total 0.6 mg/dl (0.2-1.0); Calcium 9.1 mg/dl (8.6-10.3); Globulin 2.8 gm/dl (2.5-4.0); Magnesium 1.6 mg/dl (1.7-2.4); Potassium 3.6 mmol/L (3.5-5.1); Total Protein 6.6 gm/dl (6.0-8.3)
[2025-01-14] MEDS: cefTRIAXone SODIUM 2,000 MG/50 ML BAG IV STA (20:07)
[2025-01-14 20:12] LABS: Troponin I High Sensitivity 29.6 pg/ml (0-20)
[2025-01-14 20:34] LABS: Partial Thromboplastin Ratio 1.1; Partial Thromboplastin Time 30 Seconds (21-31); Prothrombin Time 10.5 Seconds (9.0-12.0)
[2025-01-14 20:46] LABS: HCO3 VBG 27 mmol/L; Oxygen Saturation VBG < 60.0 %; PCO2 VBG 44 mmHg (38-50); PO2 VBG 28 mmHg
[2025-01-14] MEDS: MAGNESIUM SULFATE / D5W 1 GM/100 ML BAG IV STA (20:48)
[2025-01-14] MEDS: SODIUM CHLORIDE 0.9% 500 ML IV ONE (20:51)
[2025-01-14] MEDS: DOXYCYCLINE HYCLATE 100 MG in DEXTROSE 5% MINI-B 100 ML IV STA (20:55)
--- NOTE | 2025-01-14 20:58 | History & Physical Report ---
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) on Eliquis, H&H currently stable Troponin elevation secondary to illness hx CAD GERD, on PPI anxiety/mood disorder, some anxiety during exam Hyperglycemia, hemoglobin A1c of 5.3 from last month ongoing tobacco/alcohol abuse Admit to PCU given troponin elevation Supplemental O2 CS, Zosyn Nebs RTC, prednisone course Antitussives for now given hemoptysis Hold Eliquis for now, resume NOAC if H&H stable and hemoptysis resolved Pulmonary consult if without improvement Follow troponin, TTE if with progression WERO S at risk protocol, DT precautions Nicotine patch PT OT eval once medically stable DVT prophylaxis. Teds while Eliquis on hold (SCDs contraindicated with history PAD) Full code Total critical care time was 40 minutes. Text document was generated using [employer] voice recognition software. It may contain grammatical or spelling errors. Kindly contact undersigned for clarification of any documentation item in question. History of Present Illness Chief Complaint: Worsening cough, shortness of breath Primary Care Provider: Dr. Blancas History obtained from patient, family, and records. 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 Last [facility] confinement November 2024 for transient hypotension responsive to IVF. 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 No immediate postop complications. Patient not feeling well the last couple of days. Weak and feeling like shit. Junky cough symptoms mixed with blood as per patient. Increasing SOB. Denies fluid retention. Denies aspiration. Central chest pain from coughing. Lowest O2 sats of 80s documented at the ER. Solu-Medrol, neb treatment, and ceftriaxone administered at the ER. Medical History as above Surgical History : Multiple vascular procedures, IVC filter placement/removal, cataract surgeries Family History : DM, stroke Personal/Social history : 1/4 pack daily, alcohol abuse as per records Allergies Allergy/AdvReac Type Severity Reaction Status Date / Time No Known Allergies Allergy Verified 01/14/25 20:57 Home Medications Medication Instructions Recorded Confirmed Type ascorbic acid (vitamin C) 500 mg 500 mg PO Q OTHER DAY 09/26/18 01/14/25 History tablet clopidogrel 75 mg tablet (Plavix) 75 mg PO DAILY 09/26/18 01/14/25 History allopurinol 100 mg tablet 100 mg PO QAM 12/03/24 01/14/25 History apixaban 5 mg tablet (Eliquis) 5 mg PO BID 12/03/24 01/14/25 History buspirone 10 mg tablet 10 mg PO BID 12/03/24 01/14/25 History colchicine 0.6 mg tablet 0.6 mg PO BID 12/03/24 01/14/25 History metoprolol succinate 25 mg 12.5 mg PO QAM 12/03/24 01/14/25 History tablet,extended release 24 hr rosuvastatin 40 mg tablet 40 mg PO HS 12/03/24 01/14/25 History calcium carbonate (Calcium Antacid) 200 mg PO QAM 01/14/25 01/14/25 History cholecalciferol (vitamin D3) 50 50 mcg PO DAILY 01/14/25 01/14/25 History mcg (2,000 unit) capsule (Vitamin D3) cyanocobalamin (vitamin B-12) 6,000 mcg sublingual DAILY 01/14/25 01/14/25 History 5,000 mcg/mL sublingual drops (Vitamin B-12) fluticasone propionate 50 2 spray intranasal DAILY 01/14/25 01/14/25 History mcg/actuation nasal spray,suspension folic acid 1 mg tablet 1 mg PO Q OTHER DAY 01/14/25 01/14/25 History garlic 500 mg capsule 500 mg PO Q OTHER DAY 01/14/25 01/14/25 History isosorbide mononitrate 30 mg 15 mg PO QAM 01/14/25 01/14/25 History tablet,extended release 24 hr loratadine 10 mg tablet 10 mg PO QAM 01/14/25 01/14/25 History iyzjznmvfcfe-diiz-dvmup acid 200 1 tab PO QAM 01/14/25 01/14/25 History mcg-lutein 137.5 mcg chewable tablet (Adult Multivitamin (w-lutein)) pantoprazole 40 mg tablet,delayed 40 mg PO DAILYBB 01/14/25 01/14/25 History release sertraline 100 mg tablet 100 mg PO QAM 01/14/25 01/14/25 History vit C 250 mg-vit E 90 mg-zinc 40 1 tab PO QAM 01/14/25 01/14/25 History mg-copper 1 nq-rhkyjg-libsss capsule (PreserVision AREDS-2) Past Med/Surg History Problem List (Updated 01/15/25 @ 02:59 by Champ Miramontes MD) Acute hypoxemic respiratory failure Elevated troponin (Acute) Hypomagnesemia (Acute) Parainfluenza infection (Acute) Pneumonia (Acute) SOB (shortness of breath) (Acute) Hypoxia (Acute) Weakness (Acute) Acute hypotension (Acute) Transient hypotension Neuropathy History of alcohol use Memory impairment (Acute) Abdominal aortic ectasia Dyslipidemia GERD (gastroesophageal reflux disease) Macular degeneration History of shingles 2007. 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 Coronary atherosclerosis Previously noted on chest CT Elevated sed rate Surgical History (Updated 01/04/25 @ 00:08 by Background Violette) S/P ORIF (open reduction internal fixation) fracture 05/18/2021 History of tooth extraction History of cystoscopy Social History Smoking Status: Current every day smoker Cigarettes Per Day: 1/3 ppd x 42yrs; Second Hand Exposure: No; Do You Dip or Chew Tobacco: No; Hx Alcohol Use: No Hx Substance Use: No Preferred Language: Malawian Communication Ability: Effective Technical Applications Specialist Required: No Beliefs That Will Affect Care: None Current Living Situation: Spouse Current Living Situation Comment: Home with Feels Safe at Home: Yes Assistive Devices: None Review of Systems Review of Systems: As per HPI, all other systems reviewed and negative Physical Exam Physical Exam: GENERAL: Slightly uncomfortable, slightly hard of hearing, no respiratory di stress SKIN: Normal color, warm HEENT: [place] palpebral conjunctivae, no ptosis, dry buccal mucosa, nasal cannula in place NECK : Supple, no tenderness CHEST : Decreased breath sounds, expiratory wheezes, no tenderness HEART : RRR, no obvious murmurs ABDOMEN: Some distention, nontender EXTREMITIES : Minimal LE swelling, without tenderness, palpable pulses, no other conspicuous deformities noted NEUROLOGIC : Coherent, no facial asymmetry, slightly hard of hearing, no other gross focality Results & Data Results & Data Vital Signs (Past 12 Hours) Vital Signs Temp Pulse Pulse Resp BP BP Pulse Ox 01/14/25 20:02 92 H 16 92 01/14/25 19:13 94 H 01/14/25 19:11 101 H 16 116/79 92 01/14/25 19:11 88 L 01/14/25 18:49 36.8 C 106 H 20 108/71 90 O2 Del Method O2 Flow Rate 01/14/25 20:02 Nasal Cannula 2 01/14/25 19:13 01/14/25 19:11 Nasal Cannula 2 01/14/25 19:11 Nasal Cannula 0 01/14/25 18:49 Room Air Laboratory Results Laboratory Results WBC 10.12 K/ul (4.8-10.8) 01/14/25 19:06 RBC 4.83 M/uL (4.70-6.10) 01/14/25 19:06 Hgb 15.5 g/dl (14.0-18.0) 01/14/25 19:06 Hct 44.4 % (42.0-52.0) 01/14/25 19:06 MCV 91.9 fL (80.0-100.0) 01/14/25 19:06 MCH 32.1 pg (25.0-34.0) 01/14/25 19:06 MCHC 34.9 g/dL (32.0-36.0) 01/14/25 19:06 RDW Std Deviation 45.4 fL (36.4-46.3) 01/14/25 19:06 RDW Coeff of Sam 13.4 % (11.5-14.5) 01/14/25 19:06 Plt Count 228 K/uL (130-400) 01/14/25 19:06 MPV 9.1 fL (9.4-12.4) L 01/14/25 19:06 Immature Gran % (Auto) 0.4 % 01/14/25 19:06 Neut % (Auto) 87.6 % 01/14/25 19:06 Lymph % (Auto) 5.0 % 01/14/25 19:06 Kinney % (Auto) 6.8 % 01/14/25 19:06 Eos % (Auto) 0.0 % 01/14/25 19:06 Baso % (Auto) 0.2 % 01/14/25 19:06 Neut # (Auto) 8.86 K/uL (1.40-6.50) H 01/14/25 19:06 Lymph # (Auto) 0.51 K/uL (1.20-3.40) L 01/14/25 19:06 Kinney # (Auto) 0.69 K/uL (0.11-0.59) H 01/14/25 19:06 Eos # (Auto) 0.00 K/uL (0.00-0.50) 01/14/25 19:06 Baso # (Auto) 0.02 K/uL (0.00-0.20) 01/14/25 19:06 Immature Gran # (Auto) 0.04 K/uL (0.01-0.20) 01/14/25 19:06 PT 10.5 Seconds (9.0-12.0) 01/14/25 19:06 INR 1.0 (0.9-1.1) 01/14/25 19:06 APTT 30 Seconds (21-31) 01/14/25 19:06 PTT Ratio 1.1 01/14/25 19:06 VBG pH 7.40 (7.36-7.41) 01/14/25 20: VBG pCO2 44 mmHg (38-50) 01/14/25: VBG pO2 28 mmHg 05/06/25 20:26 VBG HCO3 27 mmol/L 01/14/25 20:26 VBG O2 Saturation < 60.0 % 01/14/25 20:26 VBG Base Excess 2.0 mEq/L 01/14/25 20:26 Sodium 137 mmol/L (136-145) 01/14/25 19:06 Potassium 3.6 mmol/L (3.5-5.1) 01/14/25 19:06 Chloride 102 mmol/L (98-107) 01/14/25 19:06 Carbon Dioxide 28 mmol/L (21-32) 01/14/25 19:06 Anion Gap 7 (3-11) 01/14/25 19:06 BUN 15 mg/dl (6-23) 01/14/25 19:06 Creatinine 0.83 mg/dl (0.6-1.4) 01/14/25 19:06 Est Cr Clr Drug Dosing 77.0 ml/min 01/14/25 19:06 eGFR 84.71 01/14/25 19:06 BUN/Creatinine Ratio 18.1 (10-20) 01/14/25 19:06 Glucose 126 mg/dl (70-99(Fasting)) H 01/14/25 19:06 Lactate 1.3 mmol/L (0.4-2.0) 01/14/25 19:53 Calcium 9.1 mg/dl (8.6-10.3) 01/14/25 19:06 Magnesium 1.6 mg/dl (1.7-2.4) L 01/14/25 19:06 Total Bilirubin 0.6 mg/dl (0.2-1.0) 01/14/25 19:06 AST 33 U/L (13-39) 01/14/25 19:06 ALT 25 U/L (7-52) 01/14/25 19:06 Alkaline Phosphatase 51 U/L (34-104) 01/14/25 19:06 Troponin I High Sens 29.6 pg/ml (0-20) H 01/14/25 19:06 B-Natriuretic Peptide 232 pg/ml (0-100) H 01/14/25 19:53 Total Protein 6.6 gm/dl (6.0-8.3) 01/14/25 19:06 Albumin 3.8 gm/dl (3.4-5.0) 01/14/25 19:06 Globulin 2.8 gm/dl (2.5-4.0) 01/14/25 19:06 Albumin/Globulin Ratio 1.4 (0.9-2) 01/14/25 19:[address]: There are mild patchy areas of infiltrate and/or atelectasis in the lingula, the right middle lobe and the right lower lobe.. 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 The heart is not enlarged but contains extensive coronary artery calcifications.. Diagnostic Findings EKG as per my interpretation :Rate 105, sinus tachycardia, LAD, LAFB, 1 AVB, no ischemia
[2025-01-14] MEDS: THIAMINE HCL 100 MG in SYRINGE 9 ML IV STA (21:04)
[2025-01-14 21:08] LABS: Adenovirus PCR Not Detected (NotDetected); Bordetella parapertussis PCR Not Detected (NotDetected); Bordetella pertussis PCR Not Detected (NotDetected); Chlamydia pneumoniae PCR Not Detected (NotDetected); Coronavirus 229E PCR Not Detected (NotDetected); Coronavirus CoV-2 (COVID19)PCR Not Detected (NotDetected); Coronavirus HKU1 PCR Not Detected (NotDetected); Coronavirus NL63 PCR Not Detected (NotDetected); Coronavirus OC43PCR Not Detected (NotDetected); Human Metapneumovirus PCR Not Detected (NotDetected); Influenza A PCR Not Detected (NotDetected); Influenza B PCR Not Detected (NotDetected); Mycoplasma pneumoniae PCR Not Detected (NotDetected); Parainfluenza Virus 1 PCR Not Detected (NotDetected); Parainfluenza Virus 2 PCR Not Detected (NotDetected); Parainfluenza Virus 3 PCR DETECTED (NotDetected); Parainfluenza Virus 4 PCR Not Detected (NotDetected); Respiratory Syncytial VirusPCR Not Detected (NotDetected); Rhinovirus/Enterovirus PCR Not Detected (NotDetected)
[2025-01-14] MEDS ORDERED: LORazepam 2 MG/1 ML VIAL IV PRN (21:35)
[2025-01-14] MEDS ORDERED: PROMETHAZINE 6.25 MG/50.25 ML BAG IV PRN (21:36)
[2025-01-14] MEDS ORDERED: ACETAMINOPHEN 325 MG TAB PO PRN (21:37)
[2025-01-14] MEDS ORDERED: oxyCODONE HCL IR 5 MG TAB (IMMEDIATE RELEASE) PO PRN (21:39)
--- NOTE | 2025-01-14 22:39 | XRay Report ---
Exam(s): XR CXR 1 VIEW EXAM: XR Chest, 1 View CLINICAL HISTORY: Reason for exam: Dyspnea. TECHNIQUE: Frontal view of the chest. COMPARISON: Chest radiograph on 12/03/2024 FINDINGS: Hardware: None. Lungs/pleura: Prominence interstitial markings throughout the lungs. No pleural effusion or pneumothorax. Heart/mediastinum: Atherosclerotic changes of the aorta. No cardiomegaly. Soft tissues: Unremarkable. Bones: No acute fracture. Upper abdomen: Normal. IMPRESSION: Prominent interstitial markings throughout the lungs may be secondary to chronic lung changes versus infectious/inflammatory process. Electronically signed by: Aquiles Colin M.D. 01/14/25 22:38 PM
[2025-01-14] MEDS: NITROGLYCERIN SL 0.4 MG/TAB TAB SL STA (23:19)
[2025-01-14] MEDS: BENZONATATE 100 MG CAPSULE PO ONE (23:34)
[2025-01-14] MEDS: OPTIRAY 320 100ml IV ONE (23:48)
[2025-01-15 00:50] LABS: Hematocrit (blood only) 42.4 % (42.0-52.0); Hemoglobin 14.7 g/dl (14.0-18.0)
--- NOTE | 2025-01-15 00:50 | CT Scan Report ---
Exam(s): CT CHEST With Contrast IV Amt: 93ml optirey 320 EXAM: CT Chest With Intravenous Contrast CLINICAL HISTORY: Reason for exam: hemoptysis. TECHNIQUE: Axial computed tomography images of the chest with intravenous contrast. CTDI is 21.07 mGy and DLP is 853.91 mGy-cm. Automated exposure control was utilized for the study. A dose lowering technique was utilized adhering to the principles of ALARA. CONTRAST: Patient received 93ml optiray 320 of IV contrast COMPARISON: No relevant prior studies available. FINDINGS: Motion artifact degrades image quality somewhat limiting the exam. Lungs: There are mild patchy areas of infiltrate and/or atelectasis in the lingula, the right middle lobe and the right lower lobe.. Pleural space: No pneumothorax. No significant effusion. Heart: The heart is not enlarged but contains extensive coronary artery calcifications.. Bones/joints: There are marked degenerative changes in the spine.. Soft tissues: Unremarkable. Vasculature: There are atherosclerotic changes. 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 No evidence of dissection. Lymph nodes: . No enlarged lymph nodes. IMPRESSION: There are mild patchy areas of infiltrate and/or atelectasis in the lingula, the right middle lobe and the right lower lobe.. 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 The heart is not enlarged but contains extensive coronary artery calcifications.. Electronically signed by: Braxton Sanders MD 01/15/25 00:50 AM
[2025-01-15] MEDS: IPRATROPIUM BROMIDE NEB SOLN 0.02% 0.5MG/2.5ML VIAL INH SCH (01:38)
[2025-01-15] MEDS: LEVALBUTEROL 1.25 MG/3 ML NEB NEB SCH (01:38)
[2025-01-15 01:49] LABS: Appearance Urine Clear (Clear); Bacteria Urine Automated None Seen (None Seen); Bilirubin Urine Negative (Negative); Blood Urine 1+ (Negative); Cast Urine Automated 0-2 /lpf (0-2); Color Urine Dark Yellow; Epithelial Cell Urine Auto 0-2 /hpf (0-2); Glucose Urine UA Negative (Negative); Ketones Urine Trace (Negative); Leukocyte Esterase Urine Negative (Negative); Nitrite Urine Negative (Negative); Protein Urine 2+ (Negative); Specific Gravity Urine > 1.045 (1.000-1.030); Urobilinogen Urine Negative (Negative); WBC Urine Automated 0-5 /hpf (0-5); pH Urine 5.5 (4.5-7.5)
[2025-01-15] MEDS: PIPERACILLIN/TAZOBACTAM 4.5 GM/100 ML BAG IV SCH (02:05)
[2025-01-15] MEDS: NSS + 20MEQ KCL 20 MEQ/1,000 ML BAG IV ONE (02:05)
[2025-01-15] MEDS: NICOTINE 7 MG/24 HR TDSY TD SCH (03:21)
--- OUTSIDE RECORDS SUMMARY | 2025-01-15 05:11 | External Medical Summary | Summary of Care ---
Author Name Unknown Organization [facility] Address [address] [place] [facility] [place] [address] Phone [phone] Care Team Providers Care Brass Finisher Name Role Phone Britney Vasquez MD Primary Care Pr ovider Reason for Referral * Evaluate & Treat - Unlimited Visits (Within 10 days (routine)) - Authorized Specialty Diagnoses / Procedures Referred By Contac t Referred To Contact HOME CARE / Home Care Diagnoses S/P AAA (abdominal aortic aneurysm) repair Generalized weakness Britney Vasquez MD [address] [place] [address] [place] [phone] Phone: tel: fax: Referral ID Status Reason Start Date Expiration Date Visits Requested Visits Authorized [id number] Authorized Specialty Services Required 01/13/2025 999 999 Question Answer Referral Priority Within 10 days (routine) Where should this appointment be scheduled? [facility] Documentation of Nlci-tb-[id number] Encounter Addendum Patient Name: Jeff Powers I certify that this patient is under my care and that I, or a nurse practitioner or physician's assistant operations manager working with me, had a ftgo-sa-[id number] encounter that meets the physician myih-so-sldq encounter requirements with this patient on: 01/13/25 The encounter with the patient was in whole, or in part, for the following medical condition, which is the primary reason for home health care (List medical condition): Convalescence from surgery I certify that, based on my findings, the following services are medically necessary home health services: Nursing To provide the following care/treatments: (All hospitalists not following the patient after discharge should complete this section): Primary Care Physician to follow home care plan of care after discharge: Liseth My clinical findings support the need for the above services because: Recent AAA surgery, feeling very lethargic after, difficulty with his medications (specifically inhalers/nebs); monitor vitals (low BP) Further, I certify that my clinical findings support that this patient is homebound (i.e. Absences from home require considerable and taxing effort and are for medical reasons or worship services or infrequently or of short duration when for other reason) because: Recent surgery, difficulty leaving the home without assistance Physician Signature: Date of Signature: Physician Printed Name: Britney Neely MD Reason for Visit * Reason Comments Acute Encounter Details Date Type Department Care Team (Late st Contact Info) Description 01/13/2025 10:00 AM EDT Office Visit Family Medicine [address] [place] [phone] Britney Vasquez MD [address] [place] [address] [place] [phone] S/P AAA (abdominal aortic aneurysm) repair*; Generalized weakness; Other emphysema (HCC); Nasal congestion; PURVI (generalized anxiety disorder); Alcohol use Allergies No known active allergiesdocumented as of this encounter (statuses as of 01/13/2025) Medications Cyanocobalamin (VITAMIN B-12) [address] 1 Tablet under the tongue every morning. Active folic acid 1 MG Tablet Take 1 Tablet by mouth every other day. Active vitamin c (ASCORBIC ACID) 500 MG Tablet Take 1 Tablet by mouth every other day. Active Garlic 500 MG CAPS Take 1 Cap by mouth every other day. Active Multiple Vitamins-Mineral s (MULTIVITAMIN ADULT) TABS Take by mouth. Active Cholecalciferol (VITAMIN D) 2000 UNITS Capsule Take 1 Capsule by mouth in the morning. Active Multiple Vitamins-Mineral s (PRESERVISION AREDS 2) Capsule Take 1 Capsule by mouth in the morning. Active Calcium 200 MG Oral Tablet Take 200 mg by mouth in the morning. Active Isosorbide Mononitrate ER 30 MG Oral Tablet Extended Release 24 Hour (Imdur)Indicatio ns:Coronary artery calcification Take 0.5 Tablets by mouth in the morning. 50 Tablet 3 05/31/20 24 Active Clopidogrel Bisulfate 75 MG Oral Tablet (pLAVix)Indicati ons: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),Iliac artery thrombosis, left (HCC),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) TAKE ONE TABLET BY MOUTH EVERY MORNING 100 Tablet 3 5 3:45 PM EST 06/25/20 24 Active Loratadine 10 MG Oral Tablet (Claritin)Indica tions:Tinnitus of both ears Take 1 Tablet by mouth in the morning. 30 Tablet 09/12/19 25 Active busPIRone HCl 10 MG Oral Tablet (Buspar)Indicati ons:PURVI (generalized anxiety disorder) Take 1 Tablet by mouth in the morning and 1 Tablet before bedtime. 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 200 Tablet 1 5 10:27 AM EST 10/22/19 25 Active Rosuvastatin Calcium 40 MG Oral Tablet (Crestor)Indicat ions:Mixed dyslipidemia TAKE ONE TABLET BY MOUTH EVERY DAY AT BEDTIME 100 Tablet 5 2:08 PM EDT 11/27/19 25 Active Pantoprazole Sodium 40 MG Oral Tablet Delayed Release (Protonix)Indica tions:Abdominal pain, epigastric Take 1 Tablet by mouth in the morning. 30 minutes before the first meal of the day. Do not crush, split or chew the tablet. 90 Tablet 1 5 11:45 AM EDT 12/11/19 25 Active Colchicine 0.6 MG Oral TabletIndication s:Gouty arthropathy Take 1 Tablet by mouth in the morning and 1 Tablet before bedtime. 60 Tablet 5 5 3:13 PM EDT 01/04/20 25 Active Allopurinol 100 MG Oral Tablet (Zyloprim)Indica tions:Gouty arthropathy Take 1 Tablet by mouth in the morning. 90 Tablet 1 5 3:13 PM EDT 01/04/20 25 Active Metoprolol Succinate ER 25 MG Oral Tablet Extended Release 24 Hour (toPROL XL)Indications:A therosclerosis of [place] coronary artery of [place] heart without angina pectoris Take one-half tablet by mouth in the morning. 50 Tablet 3 5 3:13 PM EDT 01/04/20 25 Active Fluticasone Propionate 50 MCG/ACT Nasal Suspension (Flonase) Administer 2 Sprays into each nostril in the morning. 16 g 1 01/14/20 25 Active Sertraline HCl 100 MG Oral Tablet (Zoloft)Indicati ons:PURVI (generalized anxiety disorder) Take 1 Tablet by mouth in the morning. 30 Tablet 5 01/14/20 25 Active Ipratropium-Albu terol 0.5-2.5 (3) MG/3ML Inhalation Solution (Duoneb)Indicati ons:COPD, 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 determined (HCC) Inhale 3 mL by mouth every 6 hours as needed for Shortness of Breath. 372 mL 5 01/15/20 21 2024 Discontinued Docusate Sodium 100 MG Oral Capsule (Colace)Indicati ons:Constipation , unspecified constipation type Take 1 Cap by mouth daily. 60 Cap 2 06/25/20 21 2024 Discontinued Sertraline HCl 50 MG Oral Tablet (Zoloft)Indicati ons:Anxiety Take 1 Tablet by mouth in the morning. 90 Tablet 1 5 5:43 PM EST 07/30/20 24 2024 Discontinued(R efill) predniSONE 20 MG Oral Tablet (Deltasone)Indic ations:Rib pain on left side One daily 10 Tablet 10/31/19 25 2024 Discontinued traMADol HCl 50 MG Oral Tablet (Ultram) Take 1 Tablet by mouth every 12 hours as needed for severe Pain 5 Tablet 5 11:39 AM EDT 01/08/20 25 2024 Discontinued Hospital, Clinic, or Other Facility Administered Medication [...] as of this encounter (statuses as of 01/13/2025) Active Problems Problem Noted Date Diagnosed Date PURVI (generalized anxiety disorder) 01/13/2025 S/P AAA (abdominal aortic aneurysm) repair 01/13 Major depressive disorder wi th single episode, in partial remission 12/25/2024 Iliac artery thrombosis, 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 Alcohol abuse 12/25/2024 History of endovascular sten t graft for [...] 0 03/04/2019 Actinic keratosis 12/12/2018 Atherosclerosis of [place] 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[place] heart without angina pectoris 04/19/2018 Abdominal aortic aneurysm without rupture 2015 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 09/14/2015 Factor V Leiden mutation 12/30/2013 Overview (12/30/2013): has one copy of Factor V Leiden mutation Mixed dyslipidemia 11/25/2009 GENERAL OSTEOARTHROSIS Tobacco use disorder Exudative age-related macula r degeneration of both eyes with active choroidal neovascularization documented as of this encounter (statuses as of 01/13/2025) Resolved Problems Problem Noted Date Diagnosed Date [...] as of this encounter (statuses as of 01/13/2025) Immunizations Name Administration Dates Next Due COVID-19 [...] 10 and older)(Boostrix) 05/09/2023,03/2013 Varicella Zoster Vaccine Aman lt (Zostavax) 06/26/2012 Zoster Vaccine Recombinant (Shingrix) 04/02/2020 ,12/25/2019 [...] Sign Reading Time Taken Comments Blood Pressure 84/68 01/13/2025 9:43 AM EDT Pulse 63 01/13/2025 9:43 AM EDT Temperature 36.1 °C (97 °F) 01/13/2025 9:43 AM EDT Respiratory Rate - - Oxygen Saturation 100% 01/13/2025 9:43 AM EDT Inhaled Oxygen Concentration - - Weight 98.4 kg (217 lb) 01/13/2025 9:43 AM EDT Height - - Body Mass Index 27.86 01/06/2025 5:47 AM EDT documented in this encounter Patient Instructions * Patient Instructions* Britney Vasquez MD - 01/13/2025 10:07 AM EDT Take 2 tablets of 50 mg sertraline until you run out, then just 1 tablet of the 100 mg daily. Metoprolol can be taken in the evenings, just do the same time of day everyday. Can try nasal spray for cold documented in this encounter Progress Notes * Britney Vasquez MD - 01/13/2025 9:53 AM EDT Images from the original note were not included. History of Present Illness Jeff Powers is a 89 year old male that presents for Acute History of Present Illness Jeff Powers is an 89 year old male who presents with symptoms following recent surgery. He is accompanied by his , who provides additional information about his condition. He feels generally unwell, describing his condition as 'I just feel like shit.' He experiences leg pain and has been sleeping excessively, with little motivation to get up or eat. His caregiver notesthat he has to be encouraged to eat and drink, and primarily consumes alcohol. His fluid intake is low, with his caregiver noting he drinks about one bottle of water a day. He is primarily in bed throughout the day. He underwent AAA surgery last week and stayed in the hospital overnight. There were no complications from the surgery itself. Since returning home, he has been largely inactive, citing a lack of energy and motivation. He experiences difficulty breathing, often resorting to mouth breathing despite attempts to breathethrough his nose. He initially thought he had a cold and has been using Benadryl, which provided some relief. He has not tried nasal sprays due to coordination issues, and his caregiver tries to assist with his inhaler use. He possesses a nebulizer but is unsure how to operate it. For pain management, he has been using Tylenol PM, which contains Tylenol and Benadryl, as he cannot take tramadol due to alcohol consumption. He is on metoprolol, which he takes in the evening, and he is also on buspirone and sertraline (Zoloft) for mood management. His caregiver notes that he obsesses over things, he feels his mood is poor as well. Physical Exam BP 84/68 | Pulse 63 | Temp 97 °F (36.1 °C) (Tympanic) | Wt 217 lb (98.4 kg) | SpO2 100% | BMI 27.86 kg/m² | BSA 2.27 m² Physical Exam Vitals and nursing note reviewed. Constitutional: General: He is not in acute distress. HENT: Head: Normocephalic and atraumatic. Mouth/Throat: Mouth: Mucous membranes are moist. Eyes: Extraocular Movements: Extraocular movements intact. Neck: Thyroid: No thyromegaly. Cardiovascular: Rate and Rhythm: Normal rate and regular rhythm. Pulmonary: Breath sounds: Normal breath sounds. No wheezing or rhonchi. Musculoskeletal: General: Normal range of motion. Cervical back: Normal range of motion and neck supple. Right lower leg: No edema. Left lower leg: No edema. Skin: General: Skin is warm and dry. Findings: No lesion or rash. Comments: L arm surgical wound well healing, no drainage or redness Neurological: General: No focal deficit present. Mental Status: He is alert and oriented to person, place, and time. Psychiatric: Mood and Affect: Mood normal. Behavior: Behavior normal. Assessment and Plan Assessment & Plan Breathing difficulty He experiences breathing difficulty due to nasal congestion, though his lungs are clear, indicatingnasal obstruction. A nasal spray is prescribed to alleviate congestion. Postoperative recovery He reports fatigue, decreased appetite, and malaise, likely from surgery and anesthesia effects. There are no surgical complications, and incisions are healing well. Fluid intake is inadequate. He isencouraged to increase fluid intake, aiming for two to three bottles of water per day. Referred to home nursing for monitoring vital signs, medication assistance, and nebulizer education. Alcohol use Alcohol use is interfering with pain management and recovery. He is not taking tramadol due to alcohol consumption and primarily consumes alcohol instead of maintaining adequate hydration. Depression Depression is managed with buspirone and sertraline. His mood is generally good, with some obsessive behavior. The sertraline dosage was recently increased to address post-surgery mood concerns. He is instructed to take two pills daily until the current supply is exhausted, then switch to one 100 mg tablet daily. S/P AAA (abdominal aortic aneurysm) repair Suspect his leg pain, weakness, and general low energy related to recent surgery and recovery time.Recommend pushing water for the next few days to flush any anesthesia out of his system. - HOME HEALTH REFERRAL OP Generalized weakness As above. Will request home health short term to help with monitoring vitals post op and help with recovery from surgery, medication management - HOME HEALTH REFERRAL OP Other emphysema (HCC) Known dx of emphysema, has difficulty using his inhalers and nebs, encouraged to do so to help withbreathing (O2 sat today excellent). Nasal congestion Can try nasal saline and flonase to help with the nose breathing. PURVI (generalized anxiety disorder) Feels his mood is poor and notes he worries about everything. Increase zoloft to 100 mg and monitor. Recheck in 4 weeks. - Sertraline HCl 100 MG Oral Tablet (Zoloft); Take 1 Tablet by mouth in the morning. Alcohol use Limits usage of opiates and tramadol post op. May use tylenol (is on blood thinners, avoid NSAIDs).Encouraged to cut back in this time frame. Wrap-Up Follow Up: Return in about 4 weeks (around 02/10/2025) for establish and f/u after recent surgery (40m ins please). | For: establish and f/u after recent surgery (40 m ins please) Time: I spent a total of 30-39 minutes (exact time 30 mins) on the date of service in preparation, delivery, and documentation of the care provided to Jeff Powers excluding any time spent in the performance of separately billed services. Text in this note was generated using an [employer] documentation service. I discussed the use of a device to record and summarize our discussion today. All persons present during the encounter consented to its use. documented in this encounter Nursing Notes * Ivet Lin LPN - 01/13/2025 9:43 AM EDT Trouble with breathing "My legs are killing me" Just had surgery last week. Repair on AAA. Was to follow up in 2 weeks but he has been miserable, per Also thinks he has a cold. documented in this encounter Plan of Treatment Upcoming Encounters Date Type Department Care Team (Late st Contact Info) Description 01/22/2025 9:15 AM EDT Imaging Radiology [facility] [address] [place] [phone] 01/29/2025 10:30 AM EDT Office Visit Vascular Surgery, [facility] [address] [place] [phone] Walt Raphael MD [address] [facility] [place] [address] 02/10/2025 9:40 AM EDT Office Visit Family Medicine [address] [phone] Britney Vasquez MD [address] [place] [address] [place] [phone] 02/26/2025 11:45 AM EDT Office Visit Ophthalmology, [facility] [address] [place] [phone] Mau Deleon DO [address] [place] [phone] 07/28/2025 11:20 AM EST Office Visit Family Medicine [address] [phone] Britney Vasquez MD [address] [place] [address] [place] [phone] 08/12/2025 9:30 AM EST Office Visit Cardiology [address] [place] [phone] Jesus Alberto Montiel PA-C [address] [place] [phone] Scheduled Referrals Name Type Priority Associated Diagnoses Orde r Schedule HOME HEALTH REFERRAL OP Referral Within 10 days (routine) S/P AAA (abdominal aortic aneurysm) repair Generalized weakness Ordered: 01/13/2025 Health Maintenance Due Date Last Done Comments DISCUSS TOBACCO CESSATION (REFER TO SMARTSET #[id number]) 1935 Alpha-1 Antitrypsin 11/23/1955 Depression Monitoring 04/23/2021 04/23/2020 Adult Wellness Visit 05/03/2023 05/03/2022 COVID-19 Vaccine ( season) 2024 05/03/2022, 11/02/2021, 11/06/2020, Additional history exists O2 ASSESSMENT COMPLETED IN PAST YEAR FOR COPD 01/06/2026 01/06/2025 DTap/Tdap Vaccines (3 - Td or Tdap) [...] this encounter Medical Devices Implanted Type Area Supervisor Billposting Device Identifier Shelf Expiration Date Model / Serial / Lot Graft Aaa Bif [id number] - [id number] - [id number] Implanted:Qty: 1 on 02/13/2015 by [place] [facility] [place] [employer] : VASCULAR 12/02/2016 [id number] / [id number] / Limb Contralat [id number] - [id number] - [id number] Implanted:Qty: 1 on 02/13/2015 by Clayton Lee MD [place] [facility] [place] [employer] : VASCULAR 11/19/2016 [id number] / [id number] / Limb Contralat [id number] - [id number] - [id number] Implanted:Qty: 1 on 02/13/2015 by Clayton Lee MD [place] [facility] [place] [employer] : VASCULAR [id number] / [id number] / Plug Vasc Ampl 16mm 9-Plug-016 - [id number] Implanted:Qty: 1 on 02/13/2015 by Clayton Lee MD [place] [facility] [place] [employer] MEDICAL TREVON 9-PLUG-01 6 / / Grft Excldr 64ile28.5cm - [id number] - [id number] Implanted:Qty: 1 on 01/06/2025 by Walt Raphael [place] [facility] [place]: Iliac [employer] [id number] 03/05/2027 [id number] / [id number] / [id number] 14.5mm X 10cm Brandon Excluder Iliac Branch Endoprosthesis Iliac Branch Component Implanted:Qty: 1 on 01/06/2025 by Walt Raphael MD [place] [facility] [place]: Iliac [employer] [id number] 10/17/2027 [id number] / [id number] / [id number] Cath Viabahnbx [id number] 135cm - [id number] - [id number] Implanted:Qty: 1 on 01/06/2025 by Walt Raphael MD [place] [facility] [place]: Iliac [employer] [id number] 08/18/2026 [id number] / [id number] / [id number] Description:left internal il iac documented as of this encounter Visit Diagnoses Diagnosis S/P AAA (abdominal aortic aneurysm) repair- Primary Other postprocedural status Generalized weakness Other malaise and fatigue Other emphysema (HCC) Other emphysema Nasal congestion Other diseases of nasal cavity and sinuses PURVI (generalized anxiety disorder) Generalized anxiety disorder Alcohol use documented in this encounter Advance Directives * Full Code (Latest Code Status on File) Date Activated Date Inactivated Comments 01/06/2025 11:10 AM 01/07/2025 3:47 PM This order reflects the patients wishes and were consensually agreed upon. Question Answer Comments Discussion of Advance Direct felicity occurred with: Not Discussed due to patient's condition * Full Code Date Activated Date Inactivated Comments 09/22/2015 9:05 AM 09/23/2015 1:51 PM This order r eflects the patients wishes and were consensually agreed upon. * Full Code Date Activated Date Inactivated Comments 02/13/2015 2:03 PM 02/14/2015 5:50 PM This order ref lects the patients wishes and were consensually agreed upon. Care Teams Brass Finisher Relationship Specialty Start Date End Date Britney Vasquez MD [address] [place] [address] [place] [phone] PCP - General Family Medicine 01/13/25 documented as of this encounter
--- OUTSIDE RECORDS SUMMARY | 2025-01-15 05:12 | External Medical Summary | Summary of Care ---
Author Name Unknown Organization [facility] Address [address] [place] [address] Phone [phone] Care Team Providers Care Business Technology Professor Name Role Phone Fran Peres MD Primary Care Provide r Encounter Details Date Type Department Care Team (Late st Contact Info) Description 01/13/2025 Orders Only Outcomes Research Department [address] [place] [address] Merissa Vinson CHRA [employer] Research Other*[id number] Allergies No known active allergiesdocumented as of [...] by mouth in the morning. Active Multiple Vitamins-Minerals (PRESERVISION AREDS 2) Capsule Take 1 Capsule by mouth in the morning. Active Ipratropium-Albut anthony 0.5-2.5 (3) MG/3ML Inhalation Solution (Duoneb)Indicatio ns:COPD, 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 determined ([facility]) Inhale 3 mL by mouth every 6 hours as needed for Shortness of Breath. 372 mL 5 1 Active Additional Information Patient not taking.Reported on 01/06/2025 Docusate Sodium 100 MG Oral Capsule (Colace)Indicatio [...] the morning. 50 Tablet 3 4 Active Clopidogrel Bisulfate 75 MG Oral Tablet (pLAVix)Indicatio ns:Factor V Leiden mutation ([facility]),Iliac artery thrombosis, left (HCC),Infrarenal abdominal aortic aneurysm (AAA) without rupture ([facility]) TAKE ONE TABLET BY MOUTH EVERY MORNING 100 Tablet 3 09/28/2024 3:45 PM EST 4 Active Sertraline [...] 1 Tablet before bedtime. 180 Tablet 2 01/03/2025 4:04 PM EDT 5 Active Apixaban 5 MG Oral Tablet (Eliquis)Indicati ons:Factor V Leiden mutation (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 200 Tablet 1 10/23/2024 10:27 AM EST 5 Active predniSONE 20 MG Oral Tablet (Deltasone)Indica tions:Rib pain on left side One daily 10 Tablet 5 Active Additional Information Patient not taking.Reported on 01/06/2025 Rosuvastatin Calcium 40 MG Oral Tablet (Crestor)Indicati ons:Mixed dyslipidemia TAKE ONE TABLET BY MOUTH EVERY DAY AT BEDTIME 100 Tablet 11/27/2024 2:08 PM EDT 5 Active Pantoprazole Sodium 40 MG Oral Tablet Delayed Release (Protonix)Indicat ions:Abdominal pain, epigastric Take 1 Tablet by mouth in the morning. 30 minutes before the first meal of the day. Do not crush, split or chew the tablet. 90 Tablet 1 12/12/2024 11:45 AM EDT 5 Active Colchicine 0.6 MG Oral TabletIndications :Gouty arthropathy Take 1 Tablet by mouth in the morning and 1 Tablet before bedtime. 60 Tablet 5 01/06/2025 3:13 PM EDT 5 Active Allopurinol 100 MG Oral Tablet (Zyloprim)Indicat ions:Gouty arthropathy Take 1 Tablet by mouth in the morning. 90 Tablet 1 01/06/2025 3:13 PM EDT 5 Active Metoprolol Succinate ER 25 MG Oral Tablet Extended Release 24 Hour (toPROL XL)Indications:At herosclerosis of [place] coronary artery of [place] heart without angina pectoris Take one-half tablet by mouth in the morning. 50 Tablet 3 01/06/2025 3:13 PM EDT 5 Active traMADol HCl 50 MG Oral Tablet (Ultram) Take 1 Tablet by mouth every 12 hours as needed for severe Pain 5 Tablet 01/07/2025 11:39 AM EDT 5 Active Hospital, Clinic, or Other [...] Active Problems Problem Noted Date Diagnosed Date Major depressive disorder wi th single episode, [...] 07/16/2020 Primary 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 of both knees 08/01/2019 prison current use of 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 0 03/04/2019 Actinic keratosis 12/12/2018 Atherosclerosis of [place] 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[place] heart without angina pectoris 04/19/2018 Abdominal aortic aneurysm without rupture 2015 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 09/14/2015 Factor V Leiden mutation 12/30/2013 Overview [...] pulmonary artery 12/23/2013 04/19/2018 Overview (12/25/2013): Admitted [facility] Encounter for examination fo r normal comparison [...] 01/13/2025 10:00 AM EDT Office Visit Family [address] [phone] Britney Vasquez MD [address] [place] [address] [place] [phone] 01/22/2025 9:15 AM EDT Imaging Radiology [facility]st [facility] [address] [place] [phone] 01/29/2025 10:30 AM EDT Office Visit Vascular Surgery, [facility] [address] [place] [phone] Walt [facility] [address] [facility] [address] 02/26/2025 11:45 AM EDT Office Visit Ophthalmology, [facility] [address] [place] [phone] Mau Deleon DO [address] [place] [address] 07/28/2025 11:20 AM EST Office [address] Medicine [address] [phone] Britney Vasquez MD [address] [place] [address] [place] [phone] 08/12/2025 9:30 AM EST Office Visit Cardiology [address] [place] [address] Jesus Alberto Montiel, PAZeeC [address] [place] [address] Scheduled Orders Name Type Priority Associated Diagnoses Orde r Schedule MYCODE SUBSEQUENT ADULT Lab Routine [employer] Research Other*[id number] Every 6 Months for 2 Occurrences starting 01/13/2025 until 02/02/2026 Health Maintenance Due Date Last Done Comments DISCUSS TOBACCO CESSATION (REFER TO SMARTSET #2978) 1935 Alpha-1 Antitrypsin 11/23/1953 Depression Monitoring 04/23/2021 [...] this encounter Medical Devices Implanted Type Area Tank Truck Mechanic Device Identifier Shelf Expiration Date Model / Serial / Lot Graft Aaa Bif [id number] - [id number] - [id number] Implanted:Qty: 1 on 02/13/2015 by Clayton Lee MD at OR [facility] Aorta [employer] : VASCULAR 12/02/2016 [id number] / [id number] / Limb Contralat [id number] - [id number] - [id number] Implanted:Qty: 1 on 02/13/2015 by Clayton Lee MD at OR [facility] Aorta [employer] : VASCULAR 11/19/2016 [id number] / [id number] / Limb Contralat [id number] - [id number] - [id number] Implanted:Qty: 1 on 02/13/2015 by Clayton Lee MD at OR [facility] Aorta [employer] : VASCULAR [id number] / [id number] / Plug Vasc Ampl 16mm 9-Plug-016 - [id number] Implanted:Qty: 1 on 02/13/2015 by Clayton Lee MD at OR [facility] Aorta [employer] TREVON 9-PLUG-01 6 / / Grft Excldr 60kvd24.5cm - [id number] - [id number] Implanted:Qty: 1 on 01/06/2025 by Walt Raphael MD at OR [facility] Left: Iliac [employer] [id number] 03/05/2027 [id number] / [id number] / [id number] 14.5mm X 10cm [place] Excluder Iliac Branch Endoprosthesis Iliac Branch Component Implanted:Qty: 1 on 01/06/2025 by Walt Raphael MD at OR [facility] Left: Iliac [employer] [id number] 10/17/2027 [id number] / [id number] / [id number] Cath Viabahnbx [id number] 135cm - [id number] - [id number] Implanted:Qty: 1 on 01/06/2025 by Walt Raphael MD at OR [facility] Left: Iliac [employer] [id number] 08/18/2026 [id number] / [id number] / [id number] Description:left internal il iac documented as of this encounter Visit Diagnoses Diagnosis MyCode Research Other*[id number] documented in this encounter Advance Directives * [...] were consensually agreed upon. Care Teams Business Technology Professor Relationship Specialty Start Date End Date Fran Peres MD [address] [place] [address] [place] [phone] PCP - General Family Medicine 12/13/23 documented as of this encounter
--- OUTSIDE RECORDS SUMMARY | 2025-01-15 05:12 | External Medical Summary | Summary of Care ---
Author Name Unknown Organization [facility] Address [address] [facility] [address] Phone [phone] Care Team Providers Care Stenciling Machine Tender Name Role Phone Fran Peres MD Primary [...] Expiration Date V isits Requested Visits Authorized [id number] Authorized Precert 03/05/2020 09/10/2099 99 99 Encounter Details Date Type Department Care Team (Late st Contact Info) Description 12/23/2024 11:45 AM EDT Office Visit Ophthalmology, [facility] [address] [place] [phone] Mau Deleon DO [address] [place] [address] Exudative age-related macular degeneration of right eye with active choroidal neovascularization (HCC)*; 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 372 mL 5 01/15/20 21 Active Additional Information Patient not taking.Reported on 12/23/2024 Docusate Sodium 100 MG Oral Capsule (Colace)Juan Miguelo ns:Constipation, unspecified constipation type Take 1 Cap [...] Active Clopidogrel Bisulfate 75 MG Oral Tablet (pLAVix)Miketio ns: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),Iliac artery thrombosis, left (HCC),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) TAKE ONE TABLET BY MOUTH EVERY MORNING 100 Tablet 3 5 3:45 PM EST 06/25/20 24 Active Sertraline HCl 50 MG Oral Tablet (Zoloft)Juan Miguelo ns:Anxiety Take 1 Tablet by mouth in [...] ons: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),Homozygous MTHFR mutation B6114E,Hx pulmonary embolism Take 1 Tablet by mouth [...] 12/11/19 25 Active Colchicine 0.6 MG Oral TabletIndications :Gouty arthropathy Take 1 Tablet by mouth in the morning and 1 Tablet before bedtime. 60 Tablet 5 5 7:28 AM EST 07/12/20 24 025 Discontin ued(Refil l) Allopurinol 100 MG Oral Tablet (Zyloprim)Indicat ions:Gouty arthropathy Take 1 Tablet by mouth in the morning. 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 12/11/19 25 025 Discontin ued(Refil l) Hospital, Clinic, [...] as of this encounter (statuses as of 01/07/2025) Active Problems Problem Noted Date Diagnosed Date [...] 07/16/2020 Primary 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 of both knees 08/01/2019 emt intermediate current use of 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 0 03/04/2019 Actinic keratosis 12/12/2018 Atherosclerosis of [place] 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[place] heart without angina pectoris 04/19/2018 Abdominal aortic aneurysm without rupture 2015 Homozygous MTHFR mutation [id number] 09/14/2015 Factor V Leiden mutation 12/30/2013 Overview (12/30/2013): has one copy of Factor V Leiden mutation Mixed dyslipidemia 11/25/2009 GENERAL OSTEOARTHROSIS Tobacco use disorder Exudative age-related macula r degeneration of both eyes with active choroidal neovascularization documented as of this encounter (statuses as of 01/07/2025) Resolved Problems Problem Noted Date Diagnosed Date [...] pulmonary artery 12/23/2013 04/19/2018 Overview (12/25/2013): Admitted [facility] Encounter for examination fo r normal comparison [...] as of this encounter (statuses as of 01/07/2025) Immunizations Name Administration Dates Next Due COVID-19 [...] Progress Notes * Mau Deleon, DO - 12/23/2024 11:45 AM EDT [facility] [place] Nursing Notes: Caro Leahy, RN 12/23/24 1151 Signed Jeff Powers is a 89 year old year old male who presents for Exud. AMD OU. Last Office Visit: Visit date not found (in office), Visit date not found (telemedicine) Patient currently states "getting hazy" Are you diabetic? No Do you drive? Yes OCT image(s) of both eyes acquired and filed/scanned into chart. Base Eye Exam Visual Acuity (Snellen - Linear) Right Left Dist cc 20/50 -2 20/400 -1 Dist ph cc 20/50 -1 20/350 -1 Correction: Glasses Tonometry (Tonopen, 11:50 AM) Right Left Pressure 18 30 Tonometry #2 (Tonopen, 11:50 AM) Right Left Pressure 28 Tonometry #3 (Tonopen, 11:50 AM) Right Left Pressure 28 Pupils Dark Light Shape React APD Right 3 3 Round Minimal None Left 4 4 Round Minimal None Visual Ponce (Counting fingers) Right Left Full Full Extraocular Movement Right Left Full, Ortho Full, Ortho Neuro/Psych Oriented x3: Yes Mood/Affect: Normal Dilation Both eyes: 0.5% Proparacaine @ 11:50 AM Dilation #2 Both eyes: 1.0% Mydriacyl, 2.5% Phenylephrine @ 11:50 AM Dilation Comments Patient cautioned that effects [...] optic nerve: 0.4, no edema/pallor/NVD macula: drusen, CGA vessels: wnl periphery: wnl, no RT/RD OCT Interpretation: OD: drusen, no fluid, +pvd - STABLE OS: drusen, resolved irf/srf, +pvd - STABLE A/P: 1. Exudative Age-Related Macular Degeneration OU OD>OS - s/p Eylea OD 10/21/24, 09/05/24, 05/14/24, (03/19/24, 12/21/23, 10/19/23, 08/17/23, 06/15/23, 04/11/23, 02/09/23, 12/12/22, 09/29/22, 07/28/22, 04/28/22, 01/20/22, 10/28/21, 04/22/21, 01/21/21, 2--21, -15-20, 03-05-20, 3--20, -14-19, --19, --19, 11--18, 05-08-18, 03-27-2018, --18, --18, 08-25-17, 07-05-17) - 9 weeks since last injection - s/p Eylea OS 10/21/24, 09/05/24, 05/14/24, 03/19/24, 12/21/23, 10/19/23, 08/17/23, 06/15/23, 04/11/23, 02/09/23, 12/12/22, 09/29/22, 07/28/22, 04/28/22, 01/20/22, 10/28/21, 04/22/21, 01/21/21, --, 06-25-20, 03-05-20,--20, 07-25-19, 04-18-19, 01-17-19, 07-17-18, 05-08-18,-18-18, --18, 08-25-17, 07-13-17) - 9 weeks since last injection - worse at 11 weeks, prior worse at 19 weeks in past -VA poor due to CGA; hold injection and monitor -An examination for this condition was completed which is unrelated to the procedure that was performed today - on coumadin - recommend AREDS2 MVI [...] documented in this encounter Nursing Notes * Caro Leahy RN - 12/23/2024 12:07 PM EDT Jeff Powers to receive 37 Eylea 2mg Injection of the Right eye. Correct eye confirmed with patient and marked by Mau Deleon DO Eylea 2mg lot # [id number] Exp. Date: 12/2025 * Caro Leahy RN - 12/23/2024 11:41 AM EDT Jeff Powers is a 89 year old year old male who presents for Exud. AMD OU. Last Office Visit: Visit date not found (in office), Visit date not found (telemedicine) Patient currently states "getting hazy" Are you diabetic? No Do you drive? Yes OCT image(s) of both eyes acquired and filed/scanned into chart. documented in this encounter Plan of Treatment Upcoming Encounters Date Type Department Care Team (Late st Contact Info) Description 01/22/2025 9:15 AM EDT Imaging Radiology [facility]st [facility] [address] [place] [phone] 01/29/2025 10:30 AM EDT Office Visit Vascular Surgery, [facility] [address] [place] [phone] Walt Raphael MD [address] [facility] [address] 02/26/2025 11:45 AM EDT Office Visit Ophthalmology, [facility] [address] [place] [phone] Mau Deleon DO [address] [place] [address] 07/28/2025 11:20 AM EST Office Visit Family Medicine [address] [place] [phone] Britney Vasquez MD [address] [place] [address] [place] [phone] 08/12/2025 9:30 AM EST Office Visit Cardiology [address] [place] [address] Jesus Alberto Montiel PA-C [address] [place] [address] Scheduled Orders Name Type Priority Associated Diagnoses Orde r Schedule RETINA SCAN DIAGNOSTIC IMAGE, POSTERIOR Procedures Routine Exudative age-related macular degeneration of right eye with active choroidal neovascularization (HCC) Ordered: 12/23/2024 Health Maintenance Due Date Last Done Comments DISCUSS TOBACCO CESSATION (REFER TO SMARTSET #3291) 1935 Alpha-1 Antitrypsin 11/23/1953 Depression Monitoring 04/23/2021 [...] this encounter Medical Devices Implanted Type Area Cleaning Maid Device Identifier Shelf Expiration Date Model / Serial / Lot Graft Aaa Bif [id number] - [id number] - [id number] Implanted:Qty: 1 on 02/13/2015 by Clayton Lee MD at OR [facility] [employer] : VASCULAR 12/02/2016 [id number] / [id number] / Limb Contralat [id number] - [id number] - [id number] Implanted:Qty: 1 on 02/13/2015 by Clayton Lee MD at OR [facility] [employer] : VASCULAR 11/19/2016 [id number] / [id number] / Limb Contralat [id number] - [id number] - [id number] Implanted:Qty: 1 on 02/13/2015 by Clayton Lee MD at OR [facility] [employer] : VASCULAR [id number] / [id number] / Plug Vasc Ampl 16mm 9-Plug-016 - [id number] Implanted:Qty: 1 on 02/13/2015 by Clayton Lee MD at OR [facility] Aorta Couple TREVON 9-PLUG-0 16 / / documented as of this encounter Visit Diagnoses Diagnosis Exudative age-related macular degeneration of right eye with active choroidal neovascularization (HCC)- Primary 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) documented in this encounter Administered Medications Active Administered Medications - up to 3 most recent administrations Medication Order MAR Action Action Date Dose Rate Site Aflibercept (Eylea) intraviteal prefilled syringe 2 mg 2 mg, Intravitreal, PRN Other, Starting on Mon07/09/24 at 0914, Until Mon07/09/25 at 0913, For 365 daysIndications: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) Given 12/23/2024 12:10 PM EDT 2 mg Eye Right Given 10/21/2024 11:02 AM EST 2 mg E ye Left Given 10/21/2024 11:01 AM EST 2 mg E ye Right ROPivacaine (Naropin) inj 1.5 mg 1.5 mg, Injection, PRN Other, Starting on Mon07/09/24 at 0914, Until Mon07/09/25 at 0913, For 365 daysIndications: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 Care Teams Stenciling Machine Tender Relationship Specialty Start Date End Date Fran Peres MD [address] [place] [address] [place] [address] PCP - General Family Medicine 12/13/23 documented as of this encounter
--- OUTSIDE RECORDS SUMMARY | 2025-01-15 05:12 | External Medical Summary | Summary of Care ---
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 Mixed dyslipidemia History of endovascular stent graft for abdominal aortic aneurysm 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) Pre-op testing 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 RADIOLOGY SUPERVISION & INTERPRETATION ONE ENDOPROSTHESIS OPEN BRACHIAL ARTERY EXPOSURE FOR ENDOVASCULAR PROSTHESIS Walt Mullins MD [address] [place] [address] Phone: tel: fax: OR [facility], OPERATING ROOM [facility], NATALIE BARRAZA [address] [place] [address] Phone: tel: Referral ID Status Reason Start Date Expiration Date Visits Re quested Visits Authorized [id number] Encounter Details Date Type Department Care Team (Latest Contact Info) Description 01/06/2025 5:24 AM EDT - 01/07/2025 11:42 AM EDT Hospital Encounter [facility] 8, [facility] 8th Floor [address] [place] [address] Walt Mullins MD [address] [place] [address] EKG Report Discharge Disposition: Home - Self Care Allergies No known active allergiesdocumented as of this encounter (statuses as of 01/08/2025) Medications Cyanocobalamin (VITAMIN B-12) 6000 MCG SUBL [...] for Shortness of Breath. 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 09/14/2015 Factor V Leiden mutation 12/30/2013 Overview (12/30/2013): has one copy of Factor V Leiden mutation Mixed dyslipidemia 11/25/2009 GENERAL OSTEOARTHROSIS Tobacco use disorder Exudative age-related macula r degeneration of both eyes with active choroidal neovascularization documented as of this encounter (statuses as of 01/08/2025) Resolved Problems Problem Noted Date Diagnosed Date [...] as of this encounter (statuses as of 01/08/2025) Immunizations Name Administration Dates Next Due COVID-19 [...] Sign Reading Time Taken Comments Blood Pressure 116/78 01/07/2025 8:51 AM EDT Pulse 77 01/07/2025 8:51 AM EDT Temperature 37.2 °C (99 °F) 01/07/2025 8:51 AM EDT Respiratory Rate 18 01/07/2025 8:51 AM EDT Oxygen Saturation 96% 01/07/2025 12: 00 AM EDT Inhaled Oxygen Concentration - - Weight 101.2 kg (223 lb 3.2 oz) 01/06/2025 5:47 AM EDT Height 188 cm (6' 2") 01/06/2025 5:47 AM EDT Body Mass Index 28.66 01/06/2025 5:47 AM EDT documented in this encounter Discharge Summaries * Champ Kitchen MD - 01/07/2025 10:57 AM EDT Images from the original note were not included. 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 Other Significant Diagnoses: none CONDITION ON DISCHARGE: stable Cognition: normal DISPOSITION ON DISCHARGE: home FOLLOW-UP: Future Appointments Appt Date/Time Provider Department 01/22/2025 9:15 AM CT1 [facility] Radiology [address] 01/29/2025 10:30 AM Walt Mullins MD Vascular Surgery, [facility] 02/26/2025 11:45 AM Mau Deleon DO Ophthalmology, [facility] 07/28/2025 11:20 AM Britney Vasquez MD Family Medicine [facility] 08/12/2025 9:30 AM Jesus Alberto Montiel PA-C Cardiology [facility] Outpatient testing already scheduled: Above Outpatient testing that needs to be arranged: Inpatient test results pending: MEDICATIONS ON DISCHARGE: MEDICATION UPDATES AT DISCHARGE START taking these medications INSTRUCTIONS traMADol 50 MG Tablet Commonly known as: Ultram Take 1 Tablet by mouth every 12 hours as needed for severe Pain CONTINUE taking these medications INSTRUCTIONS Allopurinol 100 MG Tablet Commonly known as: Zyloprim Take 1 Tablet by mouth in the morning. busPIRone 10 MG Tablet Commonly known as: Buspar Take 1 Tablet by mouth in the morning and 1 Tablet before bedtime. Calcium 200 MG Tablet Take 200 mg by mouth in the morning. clopidogrel 75 MG Tablet Commonly known as: pLAVix TAKE ONE TABLET BY MOUTH EVERY MORNING colchicine 0.6 MG Tablet Take 1 Tablet by mouth in the morning and 1 Tablet before bedtime. Docusate Sodium 100 MG Capsule Commonly known as: Colace Take 1 Cap by mouth daily. Eliquis 5 MG Tablet Generic drug: Apixaban Notes to patient: START TAKING Monday01/10/2025, DO NOT START BEFORE THEN Take 1 Tablet by mouth in the morning and 1 Tablet before bedtime. folic acid 1 MG Tablet Take 1 Tablet by mouth every other day. Garlic 500 MG Caps Take 1 Cap by mouth every other day. isosorbide mononitrate SA 30 MG Tb24 Commonly known as: Imdur Take 0.5 Tablets by mouth in the morning. Loratadine 10 MG Tablet Commonly known as: Claritin Take 1 Tablet by mouth in the morning. metoprolol succinate XL 25 MG Tb24 Commonly known as: toPROL XL Take one-half tablet by mouth in the morning. Multivitamin Adult Tabs Take by mouth. pantoprazole 40 MG Tbec Commonly known as: Protonix Take 1 Tablet by mouth in the morning. 30 minutes before the first meal of the day. Do not crush, split or chew the tablet. PreserVision AREDS 2 Capsule Take 1 Capsule by mouth in the morning. rosuvastatin 40 MG Tablet Commonly known as: Crestor TAKE ONE TABLET BY MOUTH EVERY DAY AT BEDTIME sertraline 50 MG Tablet Commonly known as: Zoloft Take 1 Tablet by mouth in the morning. Vitamin B-[address] 1 Tablet under the tongue every morning. Vitamin C 500 MG Tablet Commonly known as: Ascorbic Acid Take 1 Tablet by mouth every other day. Vitamin D 50 MCG (2000 UT) Capsule Take 1 Capsule by mouth in the morning. CONTINUE taking these medications but follow up with your Primary Care Physician (PCP). INSTRUCTIONS albuterol-ipratropium 2.5-0.5 MG/3ML nebulizer solution Commonly known as: Duoneb Inhale 3 mL by mouth every 6 hours as needed for Shortness of Breath. predniSONE 20 MG Tabs Tablet Commonly known as: Deltasone One daily ALLERGIES: Patient has no known allergies. INSTRUCTIONS: Activity: As tolerated Diet: normal diet Code Status: Full Code Indwelling devices: none ADMISSION HISTORY & PHYSICAL EXAM (focused): PRESENTING PROBLEM: Type 1B endoleak, Left Common Iliac Artery Aneurysm HISTORY OF PRESENT ILLNESS: Jeff Powers is a 89 year old, male that presents to pre-op today for YUMI for L CIAA with Dr. Mullins. Does not report any new issues or complaints since the last clinic visit. Also denies fevers, chills, night sweats, nausea, vomiting, diarrhea, chest pain, and shortness of breath. Does the patient take Coumadin (warfarin)? no Does the patient take any other anticoagulants? yes Alex last took Last Clinic Visit (10/23/24) Date of Service: 10/23/2024 9:58 AM Jeff [...] at that time and subsequently removed at [facility] 01/27/2014. Was noted to have Factor V Leiden deficiency. REVIEW OF SYSTEMS: Cardiovascular: Reports chronic chest [...] (234 lb 6.4 oz) | BMI 28.53 kg/m² | BSA 2.39 m² GENERAL MULTI-SYSTEM PHYSICAL EXAM: GENERAL: Normal grooming habits, no acute distress and appears stated age. RESPIRATORY: Respiratory effort normal and lungs diminished but clear. CARDIOVASCULAR: RRR, heart tones distant, no edema GASTROINTESTINAL: Obese, aorta not palpable, non-tender. SKIN: feet without ulcerations. PSYCHIATRIC: Orientation to time, place and person normal and recent and remote memory normal. EYES: sclerae normal. NEUROLOGIC: motor function grossly intact. [facility] PULSE SCALE: Carotid Right:----Bruit: No Left:----Bruit: No [...] liver measuring 3.5cm. 08/17/21; Location of Study: [facility]; Modality: duplex; AAA measures 3.5 cm in [...] again present to mid/distal left endograft limb. 09/14/15 Aortic Duplex Aorta 108, R limb 50, R EIA 101, L Limb 100, echo density present with velocity of 65, L EIA 60. 09/07/15; Location of Study: [facility]; Modality: CT; AAA measures 3.2 cm in greatest transverse dimension. R DONIS 3.4 cm and L DONIS 2.9 cm. No evidence of endoleak. New nonocclusive intraluminal thrombus in the left common iliac artery. 03/26/15; Location of Study: [facility]; Modality: CT; AAA measures 3.2 cm in greatest transverse dimension. R DONIS 3.4 cm, L DONIS 2.6. No endoleak. 02/17/15 RLE art duplex: No pseudoaneurysm or AVF demonstrated. 02/04/15; Location of Study: [facility]; Modality: CT; AAA measures 3.2 cm in [...] 1.0 09/07/2015 08:34 AM CREATININE POCT - [facility] 0.9 03/26/2015 01:54 PM Lab Results Component [...] on 2023 TTe Patient is followed by [facility] Cardiology HTN. Dyslipidemia. Reformed smoker [...] patient was seen and examined with Walt Mullins MD. Vladimir Culver PA-C I have reviewed the advanced [...] extremity/left groin access We discussed risks (, [place], CVA, bleeding, clotting, embolizing, colonic ischemia, buttock [...] answered, and informed consent was obtained. [facility] Abdominal Aortic Aneurysm Stent Graft Booklet was given to the patient. 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 Actinic keratosis jail current use of 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 Primary 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 of both knees Hx pulmonary embolism CKD (chronic kidney disease), stage II Emphysema of lung (HCC) Aortic root dilatation (HCC) Ascending aortic aneurysm (HCC) Nonrheumatic mitral valve regurgitation Other emphysema (HCC) History of endovascular stent graft for abdominal aortic aneurysm 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) Pre-op testing Major depressive disorder with single episode, in partial remission (HCC) Iliac artery thrombosis, 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[facility]) Alcohol abuse PAST MEDICAL HISTORY: Past Medical History Past Medical History: Diagnosis Date Abdominal aortic [...] 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 [id number] 09/18/2015 [facility] HTN, goal below 140/90 Iliac artery thrombosis, 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 [facility] Internal hemorrhoids 07/24/2007 Macular degeneration (senile) of retina 06/26/2014 Nonexudative age-related macular degeneration, bilateral, intermediate dry stage Other seborrheic keratosis 06/17/2002 maulik-surgical removal under local anesthesia 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 Lee. FEM/POP ARTERY REVASC W/ STENT+ANGIOPLASTY Left 09/22/2015 FEM/POP ARTERY REVASC W/ STENT+ANGIOPLASTY performed by Clayton Lee MD at OR [facility] INJECTION OF EYE DRUG Right 07/05/2017 # [...] Left 10/21/2024 #35 Eylea OS, Dr. Deleon INJECTION OF EYE DRUG Right 12/23/2024 # 37 Eylea OD, Dr. Deleon IR ARTERIOGRAM EXTREMITY UNILATERAL Left 09/22/2015 IMAGING SUPERVISION & INTERPRETATION EXTREMITY UNILATERAL performed by Clayton Lee MD at OR [facility] IR EMBOLIZATION ARTERIAL NON HEMMORHAGE Right 02/13/2015 right iliac IR EMBOLIZATION ARTERIAL NON HEMMORHAGE Right 02/13/2015 Embolization of right internal iliac artery with 16 mm Amplatzer Vascular Plug by Dr. Lee. IR FILTER REMOVAL VENA CAVA 01/27/2014 IR PLACEMENT IVC FILTER 12/23/2013 [facility] LIGATION/BIOPSY OF TEMPORAL ARTERY Bilateral 09/28/2018 no vasculitis seen MISCELLANEOUS ORDER ([facility] ONLY) Bilateral 07/05/17-07/05/18 EYLEA OU CONSENT SIGNED, Dr. Deleon MISCELLANEOUS ORDER ([facility] ONLY) Bilateral 07/17/2018-07/17/2019 EYLEA CONSENT OU SIGNED; DR DELEON MISCELLANEOUS ORDER ([facility] ONLY) Bilateral 07/25/2019-07/25/2020 EYLEA CONSENT OU SIGNED; DR DELEON MISCELLANEOUS ORDER ([facility] ONLY) ACT 112 signed, 11/14/2019 OTHER (INFORMATION) EYLEA OU CONSENT SIGNED, DR. DELEON EXP. 10/15/21 OTHER (INFORMATION) EYLEA OU CONSENT SIGNED, Dr. Deleon/Laron EXP. 10/28/22 OTHER (INFORMATION) Bilateral EYLEA OU CONSENT DR. DELEON/LARON KENNETH. 12/13/23 OTHER (INFORMATION) EYLEA CONSENT OU SIGNED EXP 12/20/24, /LARON OTHER (INFORMATION) Bilateral EYLEA OU CONSENT DR. DELEON EXP. 12/23/25 PFT B/A 01/09/2014 normal spirometry, improved post [...] OR [facility] US AAA SCREEN, VASCULAR LAB N/A 10/05/2016 [...] 09/22/1998 arthritis and calcaneal spurring left ankle FAMILY HISTORY: Family History Family History Problem Relation Name Age of Onset Diabetes Mother Stroke Father SOCIAL HISTORY: Social History Social History Tobacco Use Smoking status: Every Day Current packs/day: 0.00 Average packs/day: 0.3 packs/day for 53.0 years (13.3 ttl pk-yrs) Types: Cigars, Cigarettes Start date: 04/27/1968 Last attempt to quit: 04/27/2021 Years since quittin.6 Smokeless tobacco: Never Tobacco comments: 10/23/2024 Smoke cigars about 2 packs per week,declined pamphlet 08/31/22 4-5 little cigars, declined pamphlet Vaping Use Vaping status: Never Used Substance Use Topics Alcohol use: Yes Comment: 3-4 days a week Drug use: No CURRENT HOSPITAL MEDICATIONS: Note that completed medications (per the MAR) continue to display for 24 hours. Ordered medicationsto be given in the future also display. Current Facility-Administered Medications Medication Dose Route Frequency Provider Acetaminophen (Tylenol) tab 975 mg 975 mg Oral Pre-Op Vladimir Culver PA-C chlorhexidine gluconate cloth 2 % pad 1 Pad 1 Pad External Pre-Op Vladimir Culver PA-C Isolyte-S pH 7.4 infusion Intravenous Continuous Vladimir Culver PA-C Povidone-Iodine nasal swab 4 Swab 4 Swab Nasal Pre-Op Vladimir Culver PA-C ALLERGIES: Allergies Patient has no known allergies. ROS: All other systems negative except for those in the history of present illness (HPI). PHYSICAL EXAMINATION: BP: 99 mmHg/64 mmHg (01/06/25 0600) Pulse: 63 (01/06/25 0600) Resp: 18 (01/06/25 06) Temp: 36 C (01/06/25599) Temp Summary: Temp Min: 36 °C (96.8 °F) Max: 36 °C (96.8 °F) SpO2: 96 % (01/06/25 06) O2 flow rate: Supplemental O2 Delivery: Room Air, None (01/06/25599) Gen: A&Ox3 HENT: Supple, No LAD Pulm: clear to auscultation bilaterally, no respiratory distress Cardio: regular rate and rhythm, no murmurs or gallops Abd: Soft, non distended, no masses MSK: Spont moves extremities Neuro: Motor sensory intact Vascular: Palpable radial, PT b/l LABS: Labs reviewed as indicated below: Results Recent Results (from the past 12 hours) GLUCOSE METER, POINT OF CARE Collection Time: 01/06/25 6:32 AM Result Value Ref Range Glucose - POCT 93 70 - 120 mg/dL IMAGING: Imaging results No imaging results in the last 72 hours IMPRESSION and PLAN: Jeff Powers is a 89 year old male s/p embolization of RIIA with 16 mm Amplatzer Vascular [id number] repair of AAA/DONIS aneurysms with Medtronic Endurant device 02/13/[address] Lee - Plan for YUMI for L common iliac artery aneurysm, Type 1B endoleak with Dr. Mullins. Champ Kitchen MD Vascular Surgery Resident HOSPITAL COURSE (focused): Patient underwent the below procedures. Post-operatively, there were no complications. Patient was started on a diet post-op. Patient tolerated adequate po intake, had good pain control, worked with PT/OT and was deemed stable for discharge home on POD1 after voiding trial. Patient was provided with the appropriate discharge instructions. Patient will follow up with Vascular Surgery in clinic. Operations & Procedures: Endovascular repair of left common iliac artery aneurysm with iliac branched endoprosthesis Open left brachial artery access for delivery of stent graft Left common femoral artery percutaneous access and closure for 16 kazakh sheath Complications: none significant SIGNIFICANT RESULTS: Vital Signs (last recorded): Most Recent Systolic BP: 116 mmHg (01/07/25 08) Most Recent Diastolic BP: 78 mmHg (01/07/25 08) Pulse: 77 (01/07/25850) Resp: 18 (01/07/25850) Most Recent Temperature: 37.22 C (01/07/25 08) Weight: 101.2 kg (223 lb 3.2 oz) (01/06/25 0547) SpO2: 96 % (01/07/25 0000) O2 flow rate: 0 L/MIN (01/06/25 2100) Labs: CHEMISTRY: BUN, Creatinine, GFR Estimated, Sodium, Potassium, Chloride, Carbon Dioxide, Glucose, Calcium (see below for most recent value): Lab Results Component Value Date/Time BUN 9 01/07/2025 05:12 AM BUN 13 10/24/2019 09:16 AM CREAT 0.9 01/07/2025 05:12 AM CREAT 0.87 12/04/2024 12:00 AM CREAT 1.0 10/24/2019 09:16 AM GFRESTIMATED >60.0 10/24/2019 09:16 AM NA 137 01/07/2025 05:12 AM NA 141 10/24/2019 09:16 AM POTASSIUM 4.0 01/07/2025 05:12 AM POTASSIUM 3.9 01/06/2025 09:35 AM POTASSIUM 3.7 12/04/2024 12:00 AM POTASSIUM 4.6 10/24/2019 09:16 AM CL 102 01/07/2025 05:12 AM CL 102 10/24/2019 09:16 AM CO2 25 01/07/2025 05:12 AM CO2 30 10/24/2019 09:16 AM CA 8.5 01/07/2025 05:12 AM CA 10.1 10/24/2019 09:16 AM BLOOD COUNT: WBC, Hgb, Platelets (see below for most recent value): Lab Results Component Value Date/Time WBC 7.44 01/07/2025 05:12 AM WBC 7.96 10/24/2019 09:16 AM HGB 13.4 (L) 01/07/2025 05:12 AM HGB 14.5 12/04/2024 12:00 AM HGB 16.7 10/24/2019 09:16 AM PLT 168 01/07/2025 05:12 AM PLT 219 10/24/2019 09:16 AM Imaging (focused): No imaging results in the last 72 hours CONSULTS ORDERED: CARE MANAGEMENT CONSULT IP REFERRING PHYSICIAN: REF: WALT MULLINS PRIMARY CARE PROVIDER: PCP: Fran Peres MD [address] [place] [address] / [place] [id number] (office) [phone] (fax) Note: To contact a physician responsible for this patient’s hospital care, please call [facility] [phone]. Cosigned by Walt Mullins MD at 01/07/2025 11:59 AM EDT documented in this encounter Discharge Instructions * Discharge Instr - AVS* Champ Kitchen MD - 01/07/2025 9:16 AM EDT Discharge Date: 01/07/2025 You may call Walt Mullins MD of the department of Vascular Surgery at the [facility] office in [place] [phone] option 2. After business hours, you may call with emergency questions to [phone] and ask that the on-call Vascular Surgery provider be paged. The information below provides you with the instructions and the list of medications you need to betaking following discharge from the hospital. If you have any questions, please ask before leaving.Please carry this letter with you when you see your doctor in the clinic. If you have questions, you can reach us at the numbers above. Brief summary of your inpatient care: Endovascular repair of left common iliac artery aneurysm with iliac branched endoprosthesis Open left brachial artery access for delivery of stent graft Left common femoral artery percutaneous access and closure for 16 kazakh sheath Your primary diagnosis at discharge was Left common iliac artery aneurysm with history of endovascular aortic aneurysm repair . Your doctors during this hospitalization included: Walt Mullins MD Inpatient test results pending: None Complications: none significant Advance Directive Documented: Advance Directive Does the Patient have an Advance Directive? No SUPPLEMENTAL INSTRUCTIONS: POST-OP INSTRUCTIONS You had an aortic stent graft repair of your aneurysm. You had an endograft (stent graft) repair of your abdominal aortic aneurysm. Should you experience any increased pain, drainage/redness, incision separation, fever greater than 101 degrees, or increased swelling of your groin incisions, please call your vascular surgery office to discuss with an advanced practitioner or physician environmental health manager. If you leave with any bandages, remove those 48 hours following your surgery. You may take a shower and wash over the incision with soap and water. Do not soak the incision (i.e. take a bath) until the incision is completely healed. It is common to experience constipation following aneurysm surgery. We recommend taking MiraLAX (Polyethylene Glycol 3350) or a generic equivalent as needed to keep stools soft and regular to avoid straining and pressure on incision (especially while taking Percocet or other narcotic analgesics). Do not drive a car until you are walking normally and pain free (usually 7 to 14 days) and have stopped taking narcotic pain medicine. Any invasive procedure, such as dental work, endoscopy, colonoscopy, cystoscopy, etc. should be avoided in the first 3 months following surgery. Routine dental work should be avoided in the first 3 months after your aneurysm surgery. For the rest of your life, any invasive dental work (more than just a routine cleaning), such as root canal procedures, dental extractions or periodontal scaling will require oral antibiotic prophylaxis (taking an antibiotic pill prior to your dental procedure), which can be ordered by your primary care provider or dentist. Incision Care: Remove any dressing(s) in 24 hours. You may shower at this point, but no tub baths. You should clean with mild soap and water. Replace the dressings as needed for any drainage. Driving: Do not drive for 1 to 2 weeks and until you are walking normally. You should not drive if you are on narcotics. Diet: You should eat a heart-healthy low-fat diet. If your throat is sore, try eating soft foods. Activity: You may slowly resume normal pre-operative activity levels. You may go up steps and go for walks. However, you should avoid overly strenuous activities for 4 weeks. Return to work: You should wait 2 to 4 weeks to go back to work. Please call our office at the number listed above if you need any paperwork completed. Invasive Procedures: Any invasive procedure, such as dental work, endoscopy, colonoscopy, etc. should be avoided in the first 3 months following surgery. Routine dental work should be avoided in the first three months after your aneurysm surgery. For the rest of your life, any invasive dental work (more than just a routine cleaning), such as root canal procedures, dental extractions, or periodontal scaling will require oral antibiotic prophylaxis (taking an antibiotic pill prior to your dental procedure), which canbe ordered by your primary care provider or dentist. When to call your surgeon: Persistent fever over 101.5 degrees Fahrenheit (39 degrees Celsius) Pain that is not relieved by your medications Persistent nausea or vomiting Persistent cough or shortness of breath Purulent drainage (pus) or bleeding from any incision Redness surrounding any of your incisions that is worsening or getting bigger If you are unable to eat or drink liquids In case of emergency, you surgeon is available 24 hours a day. You may call our office at the phonenumber listed above, go to the Emergency Room, or dial 911. See your primary care physician (Fran Peres MD) in [address] Mullins in 1 month. You can start taking your Eliquis on 01/10/2025. Take your other medications as previously prescribed. You were given a prescription for tramadol for pain. Do not take if you have been drinking alcohol. Special Instructions: No special instructions needed. For routine questions, your [facility] Vascular Surgery Team prefers the use of Medio. Medio is an online internet tool to help you meet your health care needs quickly by providing a secure, confidential way to view your health records and communicate with your [facility] Vascular SurgeryTeam. To sign up for Medio go to [email or web address], "Click" [place] Now on the right side o f the screen and complete the user registration information. HOW TO QUIT SMOKING Smoking is one of the hardest habits to break. About half of all those who have ever smoked have been able to quit, and most of those (about 70%) who still smoke want to quit. Here are some of the best ways to stop smoking. KEEP TRYING: It takes most smokers about 8 tries before they are finally able to fully quit. So, the more often you try and fail, the better your chance of quitting the next time! So, don't give up! GO COLD TURKEY: Most ex-smokers quit cold turkey. Trying to cut back gradually doesn't seem to work as well, perhaps because it continues the smoking habit. Also, it is possible to fool yourself by inhaling more while smoking fewer cigarettes. This results in the same amount of nicotine in your body! GET SUPPORT: Support programs can make an important difference, especially for the heavy smoker. These groups offer lectures, methods to change your behavior and peer support. Call the free national Quitline for more information. 693-QBBF-GMF (761-622-1284). Low-cost or free programs are offered by many hospitals, local chapters of the [place] [employer] (359-140-2543) and the [place] [employer] (531-248-6933). Support at home is important too. Non-smokers can help by offering praise and encouragement. If the smoker fails to quit, encourage them to try again! AQTS-KYZ-SQASIWZ MEDICINES: For those who can't quit on their own, Nicotine Replacement Therapy (NRT) may make quitting much easier. Certain aids such as the nicotine patch, gum and lozenge are available without a prescription.However, it is best to use these under the guidance of your doctor. The skin patch provides a steady supply of nicotine to the body. Nicotine gum and lozenge gives temporary bursts of low levels of nicotine. Both methods take the edge off the craving for cigarettes. WARNING: If you feel symptoms ofnicotine overdose, such as nausea, vomiting, dizziness, weakness, or fast heartbeat, stop using these and see your doctor. PRESCRIPTION MEDICINES: After evaluating your smoking patterns and prior attempts at quitting, your doctor may offer a prescription medicine. Each has its unique advantage and side effects which your doctor can review with you. HEALTH BENEFITS OF QUITTING: The benefits of quitting start right away and keep improving the longer you go without smoking: -20 minutes: blood pressure and pulse return to normal -8 hours: oxygen levels return to normal -2 days: ability to smell and taste begins to improve as damaged nerves start to regrow -2-3 weeks: circulation and lung function improves -1-9 months: decreased cough, congestion and shortness of breath; less tired -1 year: risk of heart attack decreases by half -5 years: risk of lung cancer decreases by half; risk of stroke becomes the same as a non-smoker documented in this encounter Progress Notes * Oneil Macias MD - 01/07/2025 6:32 AM EDT VASCULAR SURGERY POST-OPERATIVE PROGRESS NOTE [facility] [address] Name: Jeff Powers Location: [facility] H875/A Date: 01/07/2025 Time: 6:32 AM DATE OF SURGERY: 01/06/2025 POST OP DAY: 1 Day Post-Op SUBJECTIVE: No acute events postop, patient is resting comfortably. Pain is well-controlled. Has not voided since li removed around 0600. No withdrawal symptoms currently OBJECTIVE: Most Recent Vital Signs: BP: 102 mmHg/70 mmHg (01/07/25 023) Pulse: 86 (01/07/25235) Resp: 18 (01/07/25235) Temp: 36.72 C (01/07/25235) Temp Summary: Temp Min: 36.2 °C (97.2 °F) Max: 37.1 °C (98.8 °F) SpO2: 96 % (01/07/25 0000) O2 flow rate: 0 L/MIN (01/06/25 2100) Supplemental O2 Delivery: Room Air, None (01/07/25235) Vital Signs Last 24 Hours: Most Recent Systolic BP Av mmHg Min: 95 mmHg Max: 129 mmHg Most Recent Temperature Av.6 C Min: 36.22 C Max: 37.11 C Pulse Av.5 Min: 64 Max: 86 Resp Av.3 Min: 12 Max: 20 SpO2 Av.5 % Min: 65 % Max: 99 % Intake/Output Summary (Last 24 hours) at 01/07/2025 0632 Last data filed at 01/07/2025 0400 Gross per 24 hour Intake 1600 ml Output 600 ml Net 1000 ml Physical Exam: Constitutional: No acute distress HEENT: Normocephalic, Cardiac: Normal sinus rhythm. Resp: Satting well on RA Abdomen/Pelvis: soft non tender, L groin soft, non tender dressings c/d/l, no hematoma Neuro: gross sensation and motor function intact bilaterally UE/LE Vascular: palpable bilateral femoral, DP/PT pulses, palpable L radial, LUE dressing clean, dry intact. LABS: Lab results within last 7 days (see chart for full results) Units 01/07/25 0512 01/06/25 1119 WBC K/uL 7.44 6.69 HGB g/dL 13.4* 14.0 PLT K/uL 168 153 SODIUM mmol/L 137 139 POTASSIUM mmol/L 4.0 3.9 CHLORIDE mmol/L 102 104 CO2 mmol/L 25 23 BUN mg/dL 9 10 CREATININE mg/dL 0.9 0.8 CALCIUM mg/dL 8.5 8.7 Recent Cultures (2 Weeks) No lab values to display. IMPRESSION and PLAN: 89 year old male s/p YUMI for L DONIS aneurysm - li removed, due to void this AM - [facility] protocol - cont Plavix - will restart eliquis on discharge - discharge today after voiding Oneil Macias MD PGY-3 [facility] General Surgery Cosigned by Walt Mullins MD at 01/07/2025 8:42 AM EDT Associated attestation - Walt Mullins MD - 01/07/2025 8:42 AM EDT I saw and evaluated the patient today. I have reviewed the resident/fellow physician note and agree. Doing well s/p YUMI Li out awaiting spontaneous void Discharge once urinating independently Restart Eliquis Monday Follow up as scheduled Walt Mullins MD Section of Vascular [place] [address] [phone] documented in this encounter H&P Notes * Champ Kitchen MD - 01/06/2025 6:42 AM EDT Images from the original note were not included. HISTORY AND PHYSICAL EXAMINATION - VASCULAR SURGERY [facility] [address] Name: Jeff Powers Location: OR [facility]/OR Date: 01/06/2025 Time: 6:42 AM PRESENTING PROBLEM: Type 1B endoleak, Left Common Iliac Artery Aneurysm HISTORY OF PRESENT ILLNESS: Jeff Powers is a 89 year old, male that presents to pre-op today for YUMI for L CIAA with Dr. Mullins. Does not report any new issues or complaints since the last clinic visit. Also denies fevers, chills, night sweats, nausea, vomiting, diarrhea, chest pain, and shortness of breath. Does the patient take Coumadin (warfarin)? no Does the patient take any other anticoagulants? yes Alex last took Last Clinic Visit (10/23/24) Date of Service: 10/23/2024 9:58 AM Jeff [...] at that time and subsequently removed at [facility] 01/27/2014. Was noted to have Factor V Leiden deficiency. REVIEW OF SYSTEMS: Cardiovascular: Reports chronic chest [...] (234 lb 6.4 oz) | BMI 28.53 kg/m² | BSA 2.39 m² GENERAL MULTI-SYSTEM PHYSICAL EXAM: GENERAL: Normal grooming habits, no acute distress and appears stated age. RESPIRATORY: Respiratory effort normal and lungs diminished but clear. CARDIOVASCULAR: RRR, heart tones distant, no edema GASTROINTESTINAL: Obese, aorta not palpable, non-tender. SKIN: feet without ulcerations. PSYCHIATRIC: Orientation to time, place and person normal and recent and remote memory normal. EYES: sclerae normal. NEUROLOGIC: motor function grossly intact. [facility] PULSE SCALE: Carotid Right:----Bruit: No Left:----Bruit: No [...] liver measuring 3.5cm. 08/17/21; Location of Study: [facility]; Modality: duplex; AAA measures 3.5 cm in [...] again present to mid/distal left endograft limb. 09/14/15 Aortic Duplex Aorta 108, R limb 50, [...] 09:16 AM LDL CHOLESTEROL (DIRECT MEASURE) - [facility] 11/05/2013 08:15 AM Hemoglobin Results: Lab [...] with Medtronic Endurant device 02/13/[address] 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 Coumadin. Factor V Leiden Deficiency. 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 LAD/Circ/RCA were widely patent Mild Aortic Root Enlargement on 2023 TTe Patient is followed by [facility]iology HTN. Dyslipidemia. Reformed smoker [...] patient was seen and examined with Walt Mullins MD. Vladimir Culver PA-C I have reviewed the advanced [...] extremity/left groin access We discussed risks (, [place], CVA, bleeding, clotting, embolizing, colonic ischemia, buttock [...] answered, and informed consent was obtained. [facility] Abdominal Aortic Aneurysm Stent Graft Booklet was given to the patient. 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 Primary 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 of both knees Hx pulmonary embolism CKD (chronic kidney disease), stage II Emphysema of lung (HCC) Aortic root dilatation (HCC) Ascending aortic aneurysm (HCC) Nonrheumatic mitral valve regurgitation Other emphysema (HCC) History of endovascular stent graft for abdominal aortic aneurysm 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) Pre-op testing Major depressive disorder with single episode, in partial remission (HCC) Iliac artery thrombosis, left (HCC) Alcohol abuse PAST MEDICAL HISTORY: Past Medical History: Diagnosis Date Abdominal aortic [...] choroidal neovascularization (HCC) Factor V Leiden mutation ([facility]) 12/30/2013 has one copy of Factor V Leiden mutation Generalized 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 GERD (gastroesophageal reflux disease) Herpes zoster 08/05/2008 left forehead 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 [id number] 09/18/2015 [facility] HTN, goal below 140/90 Iliac artery thrombosis, 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 [facility] Internal hemorrhoids 07/24/2007 Macular degeneration (senile) of retina 06/26/2014 Nonexudative age-related macular degeneration, bilateral, intermediate dry stage Other seborrheic keratosis 06/17/2002 maulik-surgical removal under local anesthesia 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 Lee. FEM/POP ARTERY REVASC W/ STENT+ANGIOPLASTY Left 09/22/2015 FEM/POP ARTERY REVASC W/ STENT+ANGIOPLASTY performed by Clayton Lee MD at OR [facility] INJECTION OF EYE DRUG Right 07/05/2017 # [...] Left 10/21/2024 #35 Eylea OS, Dr. Deleon INJECTION OF EYE DRUG Right 12/23/2024 # 37 Eylea OD, Dr. Deleon IR ARTERIOGRAM EXTREMITY UNILATERAL Left 09/22/2015 IMAGING SUPERVISION & INTERPRETATION EXTREMITY UNILATERAL performed by Clayton Lee MD at [facility] IR EMBOLIZATION ARTERIAL NON HEMMORHAGE Right 02/13/2015 right iliac IR EMBOLIZATION ARTERIAL NON HEMMORHAGE Right 02/13/2015 Embolization of right internal iliac artery with 16 mm Amplatzer Vascular Plug by Dr. Lee. IR FILTER REMOVAL VENA CAVA 01/27/2014 IR PLACEMENT IVC FILTER 12/23/2013 [facility] LIGATION/BIOPSY OF TEMPORAL ARTERY Bilateral 09/28/2018 no vasculitis seen MISCELLANEOUS ORDER ([facility] ONLY) Bilateral 07/05/17-07/05/18 EYLEA OU CONSENT SIGNED, Dr. Deleon MISCELLANEOUS ORDER ([facility] ONLY) Bilateral 07/17/2018-07/17/2019 EYLEA CONSENT OU SIGNED; DR LUIS M MICHELLE ORDER ([facility] ONLY) Bilateral 07/25/2019-07/25/2020 EYLEA CONSENT OU SIGNED; DR DELEON MISCELLANEOUS ORDER ([facility] ONLY) ACT 112 signed, 11/14/2019 OTHER (INFORMATION) EYLEA OU CONSENT SIGNED, DR. DELEON EXP. 10/15/21 OTHER (INFORMATION) EYLEA OU CONSENT SIGNED, Dr. Deleon/Laron EXP. 10/28/22 OTHER (INFORMATION) Bilateral EYLEA OU CONSENT DR. DELEON/LARON KENNETH. 12/13/23 OTHER (INFORMATION) EYLEA CONSENT OU SIGNED EXP 12/20/24, /LARON OTHER (INFORMATION) Bilateral EYLEA OU CONSENT DR. DELEON EXP. 12/23/25 PFT B/A 01/09/2014 normal spirometry, improved post [...] OR [facility] US AAA SCREEN, VASCULAR LAB N/A 10/05/2016 [...] 09/22/1998 arthritis and calcaneal spurring left ankle FAMILY HISTORY: Family History Problem Relation Name Age of Onset Diabetes Mother Stroke Father SOCIAL HISTORY: Social History Tobacco Use Smoking status: Every Day Current packs/day: 0.00 Average packs/day: 0.3 packs/day for 53.0 years (13.3 ttl pk-yrs) Types: Cigars, Cigarettes Start date: 04/27/1968 Last attempt to quit: 04/27/2021 Years since quittin.6 Smokeless tobacco: Never Tobacco comments: 10/23/2024 Smoke cigars about 2 packs per week,declined pamphlet 08/31/22 4-5 little cigars, declined pamphlet Vaping Use Vaping status: Never Used Substance Use Topics Alcohol use: Yes Comment: 3-4 days a week Drug use: No CURRENT HOSPITAL MEDICATIONS: Note that completed medications (per the MAR) continue to display for 24 hours. Ordered medicationsto be given in the future also display. Current Facility-Administered Medications Medication Dose Route Frequency Provider Acetaminophen (Tylenol) tab 975 mg 975 mg Oral Pre-Op Vladimir Culver PA-C chlorhexidine gluconate cloth 2 % pad 1 Pad 1 Pad External Pre-Op Vladimir Culver PA-C Isolyte-S pH 7.4 infusion Intravenous Continuous Vladimir Culver PA-C Povidone-Iodine nasal swab 4 Swab 4 Swab Nasal Pre-Op Vladimir Cuvler PA-C ALLERGIES: Patient has no known allergies. ROS: All other systems negative except for those in the history of present illness (HPI). PHYSICAL EXAMINATION: BP: 99 mmHg/64 mmHg (01/06/25599) Pulse: 63 (01/06/25599) Resp: 18 (01/06/25599) Temp: 36 C (01/06/25599) Temp Summary: Temp Min: 36 °C (96.8 °F) Max: 36 °C (96.8 °F) SpO2: 96 % (01/06/25599) O2 flow rate: Supplemental O2 Delivery: Room Air, None (01/06/25599) Gen: A&Ox3 HENT: Supple, No LAD Pulm: clear to auscultation bilaterally, no respiratory distress Cardio: regular rate and rhythm, no murmurs or gallops Abd: Soft, non distended, no masses MSK: Spont moves extremities Neuro: Motor sensory intact Vascular: Palpable radial, PT b/l LABS: Labs reviewed as indicated below: Recent Results (from the past 12 hours) GLUCOSE METER, POINT OF CARE Collection Time: 01/06/25 6:32 AM Result Value Ref Range Glucose - POCT 93 70 - 120 mg/dL IMAGING: No imaging results in the last 72 hours IMPRESSION and PLAN: Jeff Powers is a 89 year old male s/p embolization of RIIA with 16 mm Amplatzer Vascular [id number] repair of AAA/DONIS aneurysms with Medtronic Endurant device 02/13/[address] Lee - Cuauhtemoc for YUMI for L common iliac artery aneurysm, Type 1B endoleak with Dr. Mullins. Champ Kitchen MD Vascular Surgery Resident Cosigned by Walt Mullins MD at 01/06/2025 7:28 AM EDT documented in this encounter Procedure Notes * Matthew Tavarez MD - 01/06/2025 11:45 AM EDTAssociated Order(s): EKG REASON FOR STUDY: POST OP CONCLUSIONS: Sinus rhythm with 1st degree AV block with Premature atrial complexes When compared with ECG of 26-Mar-2024 09:37, Premature atrial complexes are now Present Ventricular Rate: 64 Atrial Rate: 64 MT Interval: 226 QRS Duration: 94 QT/QTc: 454/468 ms P-R-T Premier: 0 : -23 : 58 degrees documented in this encounter Consult Notes * Cara Mcintyre RN - 01/07/2025 10:33 AM EDTAssociated Order(s): CARE MANAGEMENT CONSULT IP Chart reviewed. No Care Management needs identified at this time. Care Management will continue to follow. documented in this encounter Nursing Notes * Latanya Styles RN - 01/07/2025 11:21 AM EDT VIRTUAL RN [facility] [address] Name: Jeff Powers Location: [facility] H875/A Date: 01/07/2025 Time: 11:21 AM I completed the Discharge Navigator. The patient was in the hospital. I was not in a hospital or clinic location. After connecting through televideo, the patient was identified by name and date of and / or wristband checked. Patient (or authorized legal underwriting sales representative) was then informed that this was a Virtual Nurse visit and was being conducted confidentially over secure lines. I used a headset and other methods to ensure confidentiality for the patient. My office door was closed. No oneelse was in the room with me. Patient acknowledged consent and understanding of privacy and security of the Virtual Nurse visit. I presented the opportunity for the patient or authorized legal underwriting sales representative to ask any questions regarding the visit today. The patient or authorized legal underwriting sales representative agreed to participate. Discharge Instructions reviewed with pt and pt's daughter. Reviewed all aspects of the instructionsin the AVS, including stop smoking instructions. Pt very resistant and, per dgtr, pt also is a daily alcohol consumer. Cautioned pt against smoking and etoh consumption due to disease process and tramadol use. Both voiced understanding, but pt continually shaking head no on camera. * Jessenia Castaneda NA - 01/06/2025 4:30 PM EDT Post Anesthesia Care Unit Transport Note [address] [address] Dept. Jeff Powers Transported from PeriOp to : H875 Time: 1610 Care of patient transferred to: Theresa MERCADO Transported via: Bed Belongings with Patient: YES 2 bags Pulse : 68 Temp : 36.8 BP : 108/77 Respirations : 16 Pulse Ox : 95 O2 : room air SCDS: N/A * Vladimir Prieto RN - 01/06/2025 3:38 PM EDT PERIOP TO IP HANDOFF COMMUNICATION NOTE [address] [address] Name: Jeff Powers AGE: [age] year old Location: PACU EXTEND [facility]/E Date: 01/06/2025 Attention to: Theresa Reid RN Report from: Vladimir Prieto RN Patient arriving via: Bed Time of call: 3:39 PM Phone Ext: tigertext Reason for SBAR (Situation, Background, Assessment, Recommendation) handoff: Transfer Sending to: am 875 Emotional/Personal Events & Special Needs: NA Prescriptions in chart: No Code Status: Full Code Safety Concerns: no safety concerns identified Allergies: Patient has no known allergies. 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 Lee. FEM/POP ARTERY REVASC W/ STENT+ANGIOPLASTY Left 09/22/2015 FEM/POP ARTERY REVASC W/ STENT+ANGIOPLASTY performed by Clayton Lee MD at OR [facility] INJECTION OF EYE DRUG Right 07/05/2017 # [...] Left 10/21/2024 #35 Eylea OS, Dr. Deleon INJECTION OF EYE DRUG Right 12/23/2024 # 37 Eylea OD, Dr. Deleon IR ARTERIOGRAM EXTREMITY UNILATERAL Left 09/22/2015 IMAGING SUPERVISION & INTERPRETATION EXTREMITY UNILATERAL performed by Clayton Lee MD at OR [facility] IR EMBOLIZATION ARTERIAL NON HEMMORHAGE Right 02/13/2015 right iliac IR EMBOLIZATION ARTERIAL NON HEMMORHAGE Right 02/13/2015 Embolization of right internal iliac artery with 16 mm Amplatzer Vascular Plug by Dr. Lee. IR FILTER REMOVAL VENA CAVA 01/27/2014 IR PLACEMENT IVC FILTER 12/23/2013 [facility] LIGATION/BIOPSY OF TEMPORAL ARTERY Bilateral 09/28/2018 no [...] EYLEA CONSENT OU SIGNED EXP 12/20/24, /LARON OTHER (INFORMATION) Bilateral EYLEA OU CONSENT DR. DELEON EXP. 12/23/25 PFT B/A 01/09/2014 normal spirometry, improved post bronchodilator REMOVE CATARACT, INSERT LENS PROSTH 11/2006 right REMOVE CATARACT, INSERT LENS PROSTH 12/2006 left STRESS ECHO (EXERCISE) 10/23/2014 poor exercise tolerance, no inducible ischemia, stop smoking STRESS TREADMILL 1995 stress sestamibi-neg THROMBECTOMY, PERC PRIMARY ARTERIAL MECHANICAL, ADD-ON Left 09/22/2015 MECHANICAL THROMBECTOMY, ARTERIAL OR ARTERIAL BYPASS GRAFT, ADDITIONAL VESSEL performed by Clayton Lee MD at OR [facility] AAA SCREEN, VASCULAR LAB N/A 10/05/2016 [...] 09/22/1998 arthritis and calcaneal spurring left ankle Anesthesia: General endotracheal anesthesia Operation: Endovascular repair of left common iliac artery aneurysm with iliac branched endoprosthesis Open left brachial artery access for delivery of stent graft Left common femoral artery percutaneous access and closure for 16 kazakh sheath Findings: Left common iliac artery aneurysm. After exclusion no residual 1b endoleak, patent bifurcation of internal iliac artery. Palpable pulses all four extremities. Specimen and Disposition: None Estimated Blood Loss: 50 ml Fluids: 1300 ml crystalloid Urine output: 250 mL. Drains/Implants: No drains IUBC (Li): li intact Incision location: left groin, left arm Dressing location: left groin, left arm Time of last skin assessment: 1500 Pressure injuries or areas of concern: NA Lines: Urethral Catheter Coude;Regular catheter (Active) Site Assessment Clean;Skin intact 01/06/25 1130 Securement Method Securing device (Describe) 01/06/25 1130 Catheter secured to leg? Yes 01/06/25 1130 Catheter bag below bladder? Yes 01/06/25 1130 Has IUBC been removed? (If yes, ensure the order is discontinued.) No, perioperative, or scheduled for return to OR within 48 hrs 01/06/25 1130 IUBC Tubing Disconnected This Shift? No 01/06/25 1130 Collection Container Standard drainage 01/06/25 1130 Urine Description Clear;Yellow 01/06/25 1130 Output (mL) 300 mL 01/06/25 1427 Number of days: 0 Supplemental Airway Natural;Nasal Cannula (Active) Number of days: 0 Peripheral Line Right Hand 18 Gauge (Active) Status Flushes easily;Fluids infusing 01/06/25 1100 Tubing Changed No 01/06/25 1100 Phlebitis Scale 0 01/06/25 1100 Infiltration Scale 0 01/06/25 1100 Site Description (Other) Without redness, swelling or drainage 01/06/25 1100 Site Intervention Flushed 01/06/25 1100 Dressing Assessment Dressing clean, dry, and intact 01/06/25 1100 Dressing Intervention None required 01/06/25 1100 Number of days: 0 Peripheral Line Right 14 Gauge (Active) Status Flushes easily;Fluids infusing 01/06/25 1100 Tubing Changed No 01/06/25 1100 Phlebitis Scale 0 01/06/25 1100 Infiltration Scale 0 01/06/25 1100 Site Description (Other) Without redness, swelling or drainage 01/06/25 1100 Site Intervention Flushed 01/06/25 1100 Dressing Assessment Dressing clean, dry, and intact 01/06/25 1100 Dressing Intervention None required 01/06/25 1100 Dressing Change Due 01/06/25 01/06/25 0804 Number of days: 0 Vital Signs: BP: 104/73 (01/06/25 1500) Temp: 36.3 °C (97.3 °F) (01/06/25 1130) Pulse: 74 (01/06/25 1500) Resp: 19 (01/06/25 1500) SpO2: 94 % (01/06/25 1500) O2 flow rate: 0 L/MIN (01/06/25 1500) Time of last pain medication: 1413 Med: Tylenol Time of last antibiotic: 0817 Med: Ancef Time of last antiemetic: 1012 Med: Zofran ELECTRICIAN MANAGER: no ips: no Neurological: Neuro WNL: X - Exceptions to WNL as documented below (01/06/25 1230) Speech/Cry: Clear (01/06/25 1230) Level of Consciousness: Alert (01/06/25 1230) RUE Motor Strength: 5-Active movement with full resistance (01/06/25 1230) RLE Motor Strength: 5-Active movement with full resistance (01/06/25 1230) LUE Motor Strength: 5-Active movement with full resistance (01/06/25 1230) LLE Motor Strength: 5-Active movement with full resistance (01/06/25 1230) Coma Score: 14 (01/06/25 1230) Respiratory: Respiratory WNL: WNL- within normal limits (01/06/25 113) Oxygen therapy/ Mechanical vent Supplemental O2 Delivery: Room Air, None (01/06/25 1500) O2 flow rate: 0 L/MIN (01/06/25 1500) Cardiac: Cardiovascular WNL: X - Exceptions to WNL as documented below (01/06/25 1130) Heart Sounds: S1;S2 (01/06/25 113) Rhythm: Regular (01/06/25 113) Extremities: +Sensation;Left;Upper;Lower;Right (01/06/25 1230) Pulses Right: Dorsalis Pedis +;Radial + (01/06/25 1230) Pulses Left: Dorsalis Pedis +;Radial + (01/06/25 1230) GI: GI WNL: X - Exceptions to WNL as documented below (01/06/25 1130) Abdomen: Bowel sounds hypoactive (01/06/25 1130) : WNL: X - Exceptions to WNL as documented below (01/06/25 1130) Urine Description: Clear;Yellow (01/06/25 113) Urethral Catheter Coude;Regular catheter (Active) Site Assessment Clean;Skin intact 01/06/251129 Securement Method Securing device (Describe) 01/06/251129 Catheter secured to leg? Yes 01/06/251129 Catheter bag below bladder? Yes 01/06/251129 Has IUBC been removed? (If yes, ensure the order is discontinued.) No, perioperative, or scheduled for return to OR within 48 hrs 01/06/25 1130 IUBC Tubing Disconnected This Shift? No 01/06/25 1130 Collection Container Standard drainage 01/06/25 1130 Urine Description Clear;Yellow 01/06/25 1130 Output (mL) 300 mL 01/06/25 1427 Number of days: 0 Due to Void: li intact Integumentary:Integumentary WNL: X - Exceptions to WNL as documented below (01/06/25 1130) Skin Description: Warm;Dry (01/06/25 1024) Family updated on transfer: yes Additional Assessment Information: Alert and oriented but confused at times * Vladimir Prieto RN - 01/06/2025 12:49 PM EDT R radial arterial line removed. 5 mins of continuous manual pressure applied to achieve hemostasis.Pressure dressing applied * Vladimir Prieto RN - 01/06/2025 12:22 PM EDT Dual Licensed Skin Assessment completed by myself and Keyana MERCADO. The patient is/has a N/A Skin Breakdown (includes non blanchable erythema): Yes - Surgical/Procedural changes only. Left brachial and left groin sites Scattered ecchymosis * Hue Frye RN - 01/03/2025 7:08 AM EDT Presurgery instructions sent to patient via Medio message. Did not call. Pre-operative chart review completed. NO ANESTHESIA EVAL REQUESTED PER CASE DOCUMENTATION. PREOP PATIENT INFORMATION AND EDUCATION: MEDICATION INSTRUCTIONS: The day of surgery/procedure, you may TAKE the following medications with a sip of water up to 2 hours prior to your arrival time: Please follow the pre-operative instructions provided by your vascular surgeon. If you have any questions regarding these instructions please contact your surgeon's office at [phone]. Nothing to eat or drink by mouth after midnight the night before surgery including no food, no gum/hard candy, coffee, tea, other drink, or tobacco product. Continue all of your normal morning medications with a few sips of water on day of surgery unless otherwise instructed. CONTINUE your PLAVIX, including morning of surgery. STOP your Eliquis 3 days prior to surgery STOP taking the following medications the noted number of days prior to surgery/procedure unless otherwise specified by your surgeon: Please follow surgeon's instructions regarding use of Aspirin, Coumadin, Plavix, Eliquis, and any other blood thinner including NSAIDs (non-steroidal anti- inflammatory drugs, eg, Advil, Ibuprofen, Motrin, Aleve, Naproxen); if you have any questions regarding your anticoagulation therapy please contact your surgeon's clinic. Please verify any proposed stoppage of your anticoagulation therapy with the agent's prescribing provider. 10 days prior to surgery/procedure Stop all Herbal supplements, Green Tea, Turmeric, Melatonin, CBD, THC, etc. Stop all Vitamins (including Vitamin E) 24 hours prior to surgery/procedure DO NOT consume any alcohol. DO NOT use medical marijuana. DO NOT smoke or use tobacco products of any kind after midnight prior to surgery. *Using any of these products may increase your risks of procedural complications. IF IT IS LESS THAN RECOMMENDED STOPPAGE TIME PLEASE STOP AT TIME OF NOTIFICATION. THE DAY BEFORE YOUR SURGERY: -Drink plenty of fluid the day before your surgery. Contact your surgeon's office if you develop any of the following within 2 weeks of surgery: A cold Infection Fever Shingles Chicken pox or exposure to chicken pox Open areas such as scrapes, cuts, denise or other skin conditions Rashes GENERAL INSTRUCTIONS FOR PREPARING FOR SURGERY: BATHING INSTRUCTIONS: Bathe the evening prior to and the morning of surgery/procedure. Cleanse your body using ONLY anti-bacterial soap (eg, Dial, Safeguard) or any specific soap/cleansers and instructions provided by your surgeon (eg, Chlorhexidine). -You should brush your teeth the morning of surgery. Do NOT apply any lotions, powders, sprays, creams, oils, make-up, or deodorants after bathing. No hairspray, or nail romanian on fingers or toes. Day of surgery/procedure do not use tampons. If you wear contacts wear your eyeglasses if available otherwise bring your contact supplies with you to remove them prior to your surgery/procedure. If you wear glasses or dentures, please bring cases in which you can store them during your surgery. Please remove all piercings and jewelry and leave them at home. Wear comfortable and loose clothing. -Please leave all valuables at home. -If you use a CPAP and are staying overnight, please bring your mask and tubing with you to the hospital. -If you use an assistive mobility device (walker, cane, etc), please label it with your name and bring to hospital. -An escort carry all driver is required if you are being discharged the same day of the surgery. You should have a responsible adult over the age of 18 [address] drive you home. This person should be present with youin the hospital at the time of discharge and for the first 24 hours after the surgery to support your needs. If you are taking a taxi home, you must have your responsible libertarian accompany you in the taxi ride home at the time of discharge. OR times subject to change. Please check [employer] messages the day/evening before your surgery forany updates. PRE-OP: You will be taken to the pre-op area where your vital signs (blood pressure, pulse and temperature)will be taken. Any preparations that need to be done will be done there. When it is time for your surgery, you will be taken to the operating room. PARENTS OF PEDIATRIC PATIENTS WILL BE ALLOWED TO STAY WITH THEIR CHILDREN UNTIL THEY ARE ESCORTED TO THE OPERATING ROOM OUTPATIENT SURGERY PATIENTS: After your surgery you will be taken to the Same Day Surgery Unit when you are awake and will go home from there. You will get instructions about your home care before you leave. Arrange to have someone drive you home from the hospital. You may not drive for 24 hours after anesthesia. You must havean adult stay with you at home for 24 hours after your operation. This is very important. If you are not able to comply with these guidelines, your Short Stay surgery cannot be done. ADMISSION PATIENTS: After your stay in the recovery area, you will be taken to your room. Your family may visit you in your room based on current visitation policy. If a next day discharge is expected, it is important to make arrangements for a carry all driver to take you home. Please be aware our visitation policies are subject to change Professionals, attendants, caregivers or family members are allowable visitors for patients with intellectual, developmental or cognitive disabilities, communication barriers or behavioral concerns. Because patients' and families' needs vary, they will be taken into account when applying visitation restrictions. [facility]: Contact # [phone] Directions to Surgical Suite in from the Natalie Entrance The Surgical Waiting Room can be found in the Lobby of [facility]. Enter through Main Lobby Entrance and the Waiting Room is directly in front of you. Proceed to check in and give them your name. Directions to Surgical Suite from the East Entrance Enter the East entrance and follow the hallway to the J elevator. Take the J elevator up to Level 1. Continue down the long hallway to the main [facility]. The Surgical Waiting Room will be on your Right. Proceed to check in and give them your Name. Directions to Surgical Suite from the Parking Garage Enter the [facility] lobby and proceed down the pérez to the left. At the end of the pérez, turn right. Continue down the long hallway to the main [facility]. The Surgical Waiting Room will be on your Right. Proceed to check in and give them your Name. 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 Surgeon: Walt Mullins MD Assistants: Brice Goyal MD Anesthesia: General endotracheal anesthesia Operation: Endovascular repair of left common iliac artery aneurysm with iliac branched endoprosthesis Open left brachial artery access for delivery of stent graft Left common femoral artery percutaneous access and closure for 16 kazakh sheath Findings: Left common iliac artery aneurysm. After exclusion no residual 1b endoleak, patent bifurcation of internal iliac artery. Palpable pulses all four extremities. Specimen and Disposition: None Estimated Blood Loss: 50 ml Fluids: 1300 ml crystalloid Urine output: 250 mL. Drains/Implants: No drains Left common iliac graft limb 20 mm x 11.5 cm Iliac branched endoprosthesis 23 mm x 14.5 mm x 10 cm Internal iliac stent graft 11 mm x 79 mm VBX flared to 14 mm within the iliac branched endoprosthesis gate Implant Name Type Inv. Item Serial No. Sales Project Engineer Lot No. LRB No. Used Action GRFT EXCLDR [id number] - [id number] - [id number] GRFT EXCLDR [id number] [employer] [id number] Left 1 Implanted 14.5MM X 10CM GORE EXCLUDER ILIAC BRANCH ENDOPROSTHESIS ILIAC BRANCH COMPONENT [id number] [employer] [id number] Left 1 Implanted CATH [id number] 135CM - [id number] - [id number] CATH [id number] 135CM [id number] [employer] [id number] Left 1 Implanted Complications: None Postoperative Condition: Stable Indications and History: The patient is a 89 year old male who presents for endovascular repair of left common iliac artery after prior EVAR with right internal iliac artery embolization and extension into right external iliac artery for aortoiliac aneurysmal disease. He has had progressive aneurysmal degeneration of his left common iliac and now has a Type Ib endoleak. Description of Operation: The patient was seen in the Holding Room and the site of surgery properly noted and marked. The patient was identified as Jeff Wilner Powers, and the procedure verified. In the operating room a Time Out was held and the above information confirmed. General endotracheal anesthesia was provided by the anesthesia team. A right radial arterial line was placed by anesthesia. A li catheter was placed by nursing staff under sterile conditions. The patient's left arm, abdomen, and bilateral groins were then prepped and draped in standard sterile fashion. A surgeon led timeout was performed. A longitudinal left arm incision was made over the palpable brachial pulsation above the antecubital fossa. A combination of electrocautery and sharp dissection was utilized to identify the brachial artery. A high radial takeoff was noted as there were two vessels greater than 4 mm in diameter passing through the region. The brachial artery was selected and dissected circumferentially for a length of 4 cm. Proximal and distal silastic loops were left loosely in place. Attention was then turned to gaining percutaneous femoral access. The left common femoral artery was punctured under continuous ultrasound guidance. Utilizing seldinger technique this access was exchanged for a 5 kazakh sheath. With a catheter we were able to cannulate the existing left iliac endograft. Over a stiff wire the access was predilated with an 8 kazakh dilator due to significant scar tissue making exchange of devices challenging. Preclosure with two Perclose devices was then performed, for planned access greater than 12 kazakh (specifically a 16 kazakh sheath was used). We then left an [address] and systemically anticoagulated with heparin to maintain an ACT greater than 200 throughout the case. The brachial artery was then punctured under direct visualization and utilizing seldinger techniquea 5 kazakh sheath was left in place. The omniflush was used to selected the descending thoracic aorta and an 8 kazakh sheath was advanced to the proximal abdominal aorta. In order to provide adequate seal for our iliac branched endoprosthesis a smaller left common iliacendograft was required. The left femoral sheath was exchanged for a 16 kazakh sheath over a stiff wire. An angiogram was performed to jesus alberto the internal iliac origin and a 20 mm x 11.5 cm [place] iliac limb was deployed at the aortic endograft bifurcation landing approximately one centimeter above the internal iliac origin. This was post dilated with a CODA balloon. The iliac branch endoprosthesis was then advanced through the 16 kazakh sheath. This was positionedfor appropriate gate location to cannulate the internal iliac artery and the primary deployment wasperformed. We did not utilize the through- wire capability of the graft as we were coming from abovefor internal iliac stenting. The 8 kazakh sheath was then advanced over a stiff wire into the proximal YUMI device. Using an angled catheter and glidewire the internal iliac artery was cannulated and a stiff wire was left in place. An 11 mm x 79 mm VBX stent was advanced to the internal iliac arterybifurcation with adequate seal. The proximal stent was at the YUMI bifurcation. The stent was deployed and then the proximal seal within the YUMI device was post dilated to 14 mm with an Osteen balloon.Kissing balloon angioplasty of the YUMI device was then performed with the 14 mm Osteen balloon and the CODA balloon. Completion angiography demonstrated adequate flow through each stent and resolution of the Type IB endoleak. Devices were then removed. Hemostasis was achieved in the left femoral access with the previously placed Perclose sutures. The left brachial access was repaired with 6-0 prolene suture. Heparin was reversed with protamine. There was excellent doppler flow in the brachial artery and palpable pedal pulses. The left arm incision was closed with vircyl and monocryl. Sterile dressings were applied to each access. Sponge count and needle counts were correct. The patient was transported in stable condition to the Recovery Room. Attestation: I was present and scrubbed for the chun portions of the procedure documented in this encounter Miscellaneous Notes * Progress Notes - Non-Billable - Champ Kitchen MD - 01/06/2025 11:26 AM EDT VASCULAR SURGERY POST-OPERATIVE PROGRESS NOTE [facility] [address] Name: Jeff Powers Location: OR [facility]/OR Date: 01/06/2025 Time: 11:26 AM DATE OF SURGERY: 01/06/2025 POST OP DAY: Day of Surgery - POC SUBJECTIVE: No acute events postop, patient is resting comfortably. Pain is well-controlled. HDS OBJECTIVE: Most Recent Vital Signs: BP: 112 mmHg/62 mmHg (01/06/25 112) Pulse: 70 (01/06/25 112) Resp: 14 (01/06/25 112) Temp: 36.22 C (01/06/25 1050) Temp Summary: Temp Min: 36 °C (96.8 °F) Max: 36.2 °C (97.2 °F) SpO2: 99 % (01/06/251124) O2 flow rate: 2 L/MIN (01/06/251124) Supplemental O2 Delivery: Nasal Cannula (01/06/251124) Vital Signs Last 24 Hours: Most Recent Systolic BP Av.9 mmHg Min: 95 mmHg Max: 112 mmHg Most Recent Temperature Av.1 C Min: 36 C Max: 36.22 C Pulse Av.5 Min: 63 Max: 82 Resp Av.7 Min: 12 Max: 20 SpO2 Av.3 % Min: 92 % Max: 99 % Intake/Output Summary (Last 24 hours) at 01/06/2025 1126 Last data filed at 01/06/2025 1054 Gross per 24 hour Intake 1300 ml Output 300 ml Net 1000 ml Physical Exam: Constitutional: No acute distress HEENT: Normocephalic, Cardiac: Normal sinus rhythm. Resp: Satting well on RA Abdomen/Pelvis: soft non tender, L groin soft, non tender dressings c/d/l, no hematoma Neuro: gross sensation and motor function intact bilaterally UE/LE Vascular: palpable bilateral femoral, DP/PT pulses, palpable L radial, LUE dressing clean, dry intact. LABS: No results in the last 7 days - inpatent use only Recent Cultures (2 Weeks) No lab values to display. IMPRESSION and PLAN: 89 year old male s/p YUMI for L DONIS aneurysm - flat - li - CIWA protocol - cont Plavix - holding Eliquis - IVF - NPO except meds, bedrest for 8 hours. Can ADAT after Champ Kitchen MD Vascular Surgery Resident documented in this encounter Plan of Treatment Upcoming Encounters Date Type Department Care Team (Late st Contact Info) Description 01/22/2025 9:15 AM EDT Imaging Radiology [facility] [address] [place] [phone] 01/29/2025 10:30 AM EDT Office Visit Vascular Surgery, [facility] [address] [place] [phone] Walt Mullins MD [address] [place] [address] 02/26/2025 11:45 AM EDT Office Visit Ophthalmology, [facility] [address] [place] [phone] Mau Deleon DO [address] [place] [id number] 07/28/2025 11:20 AM EST Office Visit Family Medicine [address] [place] [phone] Britney Vasquez MD [address] [place] [address] [place] [phone] 08/12/2025 9:30 AM EST Office Visit Cardiology [address] [place] [address] Jesus Alberto Montiel PAAngeles [address] [place] [phone] Health Maintenance Due Date Last Done Comments DISCUSS TOBACCO CESSATION (REFER TO SMARTSET #[id number]) 1935 Alpha-1 Antitrypsin 11/23/1955 Depression Monitoring 04/23/2021 [...] encounter Medical Devices Implanted Type Area Sales Project Engineer Device Identifier Shelf Expiration Date Model / Serial / Lot Graft Aaa Bif [id number] - [id number] - [id number] Implanted:Qty: 1 on 02/13/2015 by Clayton Lee MD at OR [facility] Aorta [employer] : VASCULAR 12/02/2016 [id number] / [id number] / Limb Contralat [id number] - [id number] - [id number] Implanted:Qty: 1 on 02/13/2015 by Clayton Lee MD at OR [facility] Aorta [employer] : VASCULAR 11/19/2016 [id number] / [id number] / Limb Contralat [id number] - [id number] - [id number] Implanted:Qty: 1 on 02/13/2015 by Clayton Lee MD at OR [facility] A[employer] : VASCULAR [id number] / [id number] / Plug Vasc Ampl 16mm 9-Plug-016 - [id number] Implanted:Qty: 1 on 02/13/2015 by Clayton Lee MD at OR [facility] Aorta [employer] MEDICAL TREVON 9-PLUG-01 6 / Grft Excldr 95gxp67.5cm - [id number] - [id number] Implanted:Qty: 1 on 01/06/2025 by Walt Mullins MD at OR [facility] Left: Iliac [employer] [id number] 03/05/2027 [id number] / [id number] / [id number] 14.5mm X 10cm [place] Excluder Iliac Branch Endoprosthesis Iliac Branch Component Implanted:Qty: 1 on 01/06/2025 by Walt Mullins MD at OR [facility] Left: Iliac [employer] [id number] 10/17/2027 [id number] / [id number] / [id number] Cath Viabahnbx [id number] 135cm - [id number] - [id number] Implanted:Qty: 1 on 01/06/2025 by Walt Mullins MD at OR [facility] Left: Iliac [employer] [id number] 08/18/2026 [id number] / [id number] / [id number] Description:left internal il iac documented as of this encounter Procedures Procedure Name Priority Date/Time Associated Diagnosis Comments BASIC METABOLIC PANEL Routine 01/07/2025 5:12 AM EDT CBC Routine 01/07/2025 5:12 AM EDT HC ECG TRACING ONLY Routine 01/06/2025 1 1:45 AM EDT Chest pain BASIC METABOLIC PANEL STAT 01/06/2025 11:19 AM EDT CBC STAT 01/06/2025 11:19 AM EDT VASC PROCEDURE IN VASCULAR ANGIO SUITE Routine 01/06/2025 10:49 AM EDT ACT, POINT OF CARE RIA 01/06/2025 10 :28 AM EDT ACT, POINT OF CARE RIA 01/06/2025 10 :03 AM EDT BLOOD GAS WITH CHEMISTRY, POINT OF CARE [facility] 01/06/2025 9:35 AM EDT ACT, POINT OF CARE RIA 01/06/2025 9: 18 AM EDT GLUCOSE METER, POINT OF CARE [facility] [place] 01/06/2025 6:32 AM EDT Open Brachial Artery Exposure for Endovascular Prosthesis, Unilat 01/06/2025 6:30 AM EDT 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) Aortic root dilatation (HCC) CKD (chronic kidney disease), 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) jail current use of 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 Mixed dyslipidemia History of endovascular stent graft for abdominal aortic aneurysm 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) Pre-op testing Endovascular Repair Not Associated w/ Placement of Aorto-Iliac Endograft 01/06/2025 6:30 AM EDT 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) Aortic root dilatation (HCC) CKD (chronic kidney disease), 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 SODIUM 137 135 - 146 mmol/L 01/07/2025 6:21 AM EDT [facility] POTASSIUM 4.0 3.5 - 5.1 mmol/L 01/07/2025 6:21 AM EDT [facility] CHLORIDE 102 98 - 107 mmol/L 01/07/2025 6:21 AM EDT [facility] CO2 25 22 - 32 mmol/L 01/07/2025 6:21 AM EDT [facility] ANION GAP 10 7 - 15 mmol/L 01/07/2025 6:21 AM EDT [facility] GLUCOSE 97 70 - 120 mg/dL 01/07/2025 6:21 AM EDT [facility] CALCIUM 8.5 8.4 - 10.2 mg/dL 01/07/2025 6:21 AM EDT [facility] Blood Venous blood specimen / Unknown Venipuncture / Unknown 01/07/2025 5:12 AM EDT 01/07/2025 5:44 AM EDT Brice Goyal MD LAB BLOOD ORDERABLES Ivonne vernon Result LABORATORY [facility] [address] [place] [address] * (ABNORMAL) CBC (01/07/2025 5:12 AM EDT) Pathologist [facility] WBC 7.44 4.00 - 10.80 K/uL 01/07/2025 5:57 AM EDT [facility] RBC 4.16 4.50 - 5.25 M/uL 01/07/2025 5:57 AM EDT [facility] HGB 13.4(L) 14.0 - 16.8 g/dL 01/07/2025 5:57 AM EDT [facility] HCT 41.2 40.0 - 48.4 % 01/07/2025 5:57 AM EDT [facility] MCV 99.0 82.0 - 99.5 fL 01/07/2025 5:57 AM EDT [facility] MCH 32.2 27.0 - 34.0 pg 01/07/2025 5:57 AM EDT [facility] MCHC 32.5 32.0 - 36.0 g/dL 01/07/2025 5:57 AM EDT [facility] RDW 14.5 11.5 - 15.5 % 01/07/2025 5:57 AM EDT [facility] PLT 168 140 - 400 K/uL 01/07/2025 5:57 AM EDT [facility] MPV 9.7 6.6 - 11.1 fL 01/07/2025 5:57 AM EDT [facility] NRBCs 0 <=0 /100 WBCs 01/07/2025 5:57 AM EDT [facility] Blood Venous blood specimen / Unknown Venipuncture / Unknown 01/07/2025 5:12 AM EDT 01/07/2025 5:44 AM EDT us Brice Goyal MD LAB BLOOD ORDERABLES Ivonne l Result LABORATORY [address] [place] [address] * EKG (01/06/2025 11:45 AM EDT) 01/06/2025 11:4 5 AM EDT Narrative Procedure Note Matthew Tavarez MD - 01/06/2025 11:45 AM EDT REASON FOR STUDY: POST OP CONCLUSIONS: Sinus rhythm with 1st degree AV block with Premature atrial complexes When compared with ECG of 26-Mar-2024 09:37, Premature atrial complexes are now Present Ventricular Rate: 64 Atrial Rate: 64 MT Interval: 226 QRS Duration: 94 QT/QTc: 454/468 ms P-R-T Premier: 0 : -23 : 58 degrees Brice Goyal MD EKG Final Res ult Performing Organization Address City/[facility]/ZIP Co de Phone Number [facility] * BASIC METABOLIC PANEL (01/06/2025 11:19 AM EDT) BUN 10 6 - 20 mg/dL 01/06/2025 11:57 AM EDT [facility] CREATININE 0.8 0.6 - 1.2 mg/dL 01/06/2025 11:57 AM EDT [facility] EGFR 85 >=60 mL/min 01/06/2025 11:57 AM EDT [facility] Comment:eGFR is calculated b ased on the CKD-EPI 2020 equation. SODIUM 139 135 - 146 mmol/L 01/06/2025 11:57 AM EDT [facility] POTASSIUM 3.9 3.5 - 5.1 mmol/L 01/06/2025 11:57 AM EDT [facility] CHLORIDE 104 98 - 107 mmol/L 01/06/2025 11:57 AM EDT [facility] CO2 23 22 - 32 mmol/L 01/06/2025 11:57 AM EDT [facility] ANION GAP 12 7 - 15 mmol/L 01/06/2025 11:57 AM EDT [facility] GLUCOSE 110 70 - 120 mg/dL 01/06/2025 11:57 AM EDT [facility] CALCIUM 8.7 8.4 - 10.2 mg/dL 01/06/2025 11:57 AM EDT [facility] Blood Arterial blood specimen / Unknown Arterial Puncture / Unknown 01/06/2025 11:19 AM EDT 01/06/2025 11:29 AM EDT Brice Goyal MD LAB BLOOD ORDERABLES Ivonne l Result [facility] [address] [place] [address] * CBC (01/06/2025 11:19 AM EDT) WBC 6.69 4.00 - 10.80 K/uL 01/06/2025 11:37 AM EDT [facility] RBC 4.27 4.50 - 5.25 M/uL 01/06/2025 11:37 AM EDT [facility] HGB 14.0 14.0 - 16.8 g/dL 01/06/2025 11:37 AM EDT [facility] HCT 42.1 40.0 - 48.4 % 01/06/2025 11:37 AM EDT [facility] MCV 98.6 82.0 - 99.5 fL 01/06/2025 11:37 AM EDT [facility] MCH 32.8 27.0 - 34.0 pg 01/06/2025 11:37 AM EDT [facility] MCHC 33.3 32.0 - 36.0 g/dL 01/06/2025 11:37 AM EDT [facility] RDW 14.2 11.5 - 15.5 % 01/06/2025 11:37 AM EDT [facility] PLT 153 140 - 400 K/uL 01/06/2025 11:37 AM EDT [facility] MPV 9.3 6.6 - 11.1 fL 01/06/2025 11:37 AM EDT [facility] NRBCs 0 <=0 /100 WBCs 01/06/2025 11:37 AM EDT [facility] Blood Arterial blood specimen / Unknown Arterial Puncture / Unknown 01/06/2025 11:19 AM EDT 01/06/2025 11:29 AM EDT Brice Goyal MD LAB BLOOD ORDERABLES Ivonne l Result LABORATORY [facility] [address] [place] [address] * VASC PROCEDURE IN VASCULAR ANGIO SUITE (01/06/2025 10:49 AM EDT) Narrative 01/06/2025 10:49 AM EDT This procedure will not be read by a Radiologist. Please see operative note. Walt Mullins MD RAD SPECIAL PROCEDURES Fin al Result * ACT, POINT OF CARE (01/06/2025 10:28 AM EDT) ACT 124 50 - 1,000 secs 01/06/2025 5:00 PM EDT [facility] Blood 01/06/2025 10:2 8 AM EDT 01/06/2025 5:00 PM EDT Narrative [facility] - 01/06/2025 5:00 PM EDT NORMAL (NON-HEPARINIZED) 74-137 SECONDS HEPARINIZED 200+ SECONDS CRITICAL GREATER THAN 1000 SECONDS Walt Mullins MD LAB POINT OF CARE TEST DOCKED DEVICE UNSOLICITED RESULTS Final Result Performing Organization Address City/[facility]/ZIP Co de Phone Number [facility] [address] [place] [address] * ACT, POINT OF CARE (01/06/2025 10:03 AM EDT) ACT 199 50 - 1,000 secs 01/06/2025 5:00 PM EDT [facility] Blood 01/06/2025 10:0 3 AM EDT 01/06/2025 5:00 PM EDT Narrative [facility] - 01/06/2025 5:00 PM EDT NORMAL (NON-HEPARINIZED) 74-137 SECONDS HEPARINIZED 200+ SECONDS CRITICAL GREATER THAN 1000 SECONDS us Walt Mullins MD LAB POINT OF CARE TEST DOCKED DEVICE UNSOLICITED RESULTS Final Result [facility] [address] [place] [address] * (ABNORMAL) BLOOD GAS WITH CHEMISTRY, POINT OF CARE (01/06/2025 9:35 AM EDT) Draw Site Arterial Draw 01/06/2025 5:00 PM EDT [facility] pH i-STAT 7.361 7.350 - 7.450 01/06/2025 5:00 PM EDT [facility] pCO2 i-STAT 46.0(H) 35.0 - 45.0 mm Hg 01/06/2025 5:00 PM EDT [facility] pO2 i-STAT 162(H) 75 - 100 mm Hg 01/06/2025 5:00 PM EDT [facility] Base Excess i-STAT 0 -2 - 2 mmol/L 01/06/2025 5:00 PM EDT [facility] Bicarbonate, Whole Blood 26.1 23.0 - 31.0 mmol/L 01/06/2025 5:00 PM EDT [facility] O2 Saturation i-STAT 99.0(H) 94.0 - 98.0 % 01/06/2025 5:00 PM EDT [facility] Glucose - POCT 104 70 - 120 mg/dL 01/06/2025 5:00 PM EDT [facility] POTASSIUM - POCT 3.9 3.5 - 5.1 mmol/L 01/06/2025 5:00 PM EDT [facility] SODIUM - POCT 137 135 - 146 mmol/L 01/06/2025 5:00 PM EDT [facility] Calcium, ionized 1.23 1.13 - 1.32 mmol/L 01/06/2025 5:00 PM EDT [facility] Hemoglobin i-STAT 15.0 14.0 - 16.8 g/dL 01/06/2025 5:00 PM EDT [facility] Hematocrit i-STAT 44 40 - 48 % 01/06/2025 5:00 PM EDT [facility] Arterial Draw 01/06/2025 9:3 5 AM EDT 01/06/2025 5:00 PM EDT Walt Mullins MD LAB POINT OF CARE TEST DOCKED DEVICE UNSOLICITED RESULTS Final Result Performing Organization Address City/[facility]/ZIP Co de Phone Number [facility] [address] [place] [address] * ACT, POINT OF CARE (01/06/2025 9:18 AM EDT) Pathologist [facility] ACT 199 50 - 1,000 secs 01/06/2025 5:00 PM EDT [facility] Blood 01/06/2025 9:18 AM EDT 01/06/2025 5:[address] [facility] - 01/06/2025 5:00 PM EDT NORMAL (NON-HEPARINIZED) 74-137 SECONDS HEPARINIZED 200+ SECONDS CRITICAL GREATER THAN 1000 SECONDS Walt Mullins MD LAB POINT OF CARE TEST DOCKED DEVICE UNSOLICITED RESULTS Final Result Performing Organization Address [facility] Co de Phone Number [facility] [address] [place] [address] * GLUCOSE METER, POINT OF CARE (01/06/2025 6:32 AM EDT) [facility] Glucose - POCT 93 70 - 120 mg/dL 01/06/2025 6:[address] [facility] Blood Whole blood specimen / Unknown 01/06/2025 6:32 AM EDT 01/06/2025 6:35 AM EDT Walt Mullins MD LAB POINT OF CARE TEST DOCKED DEVICE UNSOLICITED RESULTS Final Result [facility] [address] [place] [address] * TYPE AND SCREEN (01/06/2025 6:30 AM EDT) ABO A 01/06/2025 7:26 AM EDT LABORATORY [facility] B[facility]OD [facility] Rh Positive 01/06/2025 7:26 AM EDT LABORATORY [facility] Red Blood Cell Antibody Screen Negative 01/06/2025 7:26 AM EDT LABORATORY [facility] Specimen Expiration Date 01/09/2025 23:59 01/06/2025 7:26 AM EDT LABORATORY [facility] Blood Venous blood specimen / Unknown Venipuncture / Unknown 01/06/2025 6:30 AM EDT 01/06/2025 6:39 AM EDT Champ Kitchen MD LAB BLOOD BANK TEST ORDERABLES F inal Result LABORATORY [facility] B[facility]OD [facility] [address] [place] [address] documented in this encounter Visit Diagnoses Diagnosis 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) Chest pain Chest pain, unspecified 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) Primary hypercoagulable state 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 Hx pulmonary embolism Personal history of pulmonary embolism Abdominal aortic aneurysm without rupture (HCC) Abdominal aneurysm without mention of rupture Aortic root dilatation (HCC) 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), stage II Chronic kidney disease, Stage II (mild) 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) Primary hypercoagulable state 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 Avoid in patients with severe hepatic impairment or severe active liver disease. 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 Use for 5 days, Post-op Given 01/07/2025 5:36 AM EDT 975 mg Given 01/06/2025 10:00 PM EDT 975 mg Given 01/06/2025 2:13 PM EDT 975 mg Allopurinol (Zyloprim) tab 100 mg 100 mg, Oral, Daily(AM), First dose on Mon01/07/25 at 0900, Until Discontinued Given 01/07/2025 8:27 AM EDT 100 mg busPIRone (Buspar) tab 10 mg 10 mg, Oral, BID (.AM/PM), First dose on Mon01/06/25 at 2100, Until Discontinued Given 01/07/2025 8:27 AM EDT 10 mg Given 01/06/2025 7:59 PM EDT 10 mg ceFAZolin in dextrose (Ancef) ivpb 2 g 2 g, IV Piggyback, Q8HNOW, 2 doses, First dose on Mon01/06/25 at 1600, Last dose on Mon01/07/25 at 0000, Post-op New Bag 01/06/2025 11:54 PM EDT 2 g 100 mL/hr New Bag 01/06/2025 4:38 PM EDT 2 g 100 mL/hr Cetirizine (ZyrTEC) tab 10 mg 10 mg, Oral, Daily(AM), First dose on Mon01/06/25 at 1145, Until Discontinued Given 01/07/2025 8:27 AM EDT 10 mg Given 01/06/2025 4:34 PM EDT 10 mg chlorhexidine gluconate cloth 2 % pad 1 Pad 1 Pad, External, PREOP, First dose on Mon01/06/25 at 0600, Last dose on Mon01/06/25 at 0600, For 1 dose, Cleanse surgical site area immediately before transferring intra-op, Pre-OpIndications: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) Given 01/06/2025 6:49 AM EDT 1 Pad clopidogrel (pLAVix) tab 75 mg 75 mg, Oral, Daily(AM), First dose on Mon01/06/25 at 1145, Until Discontinued Given 01/07/2025 8:27 AM EDT 75 mg Given 01/06/2025 2:13 PM EDT 75 mg colchicine tab 0.6 mg 0.6 mg, Oral, BID (.AM/PM), First dose on Mon01/06/25 at 2100, Until Discontinued Given 01/07/2025 8:27 AM EDT 0.6 mg Given 01/06/2025 7:59 PM EDT 0.6 mg folic acid tab 1 mg 1 mg, Oral, Daily(AM), First dose on Mon01/06/25 at 1145, Until Discontinued Given 01/07/2025 8:27 AM EDT 1 mg Given 01/06/2025 2:13 PM EDT 1 mg hEParin inj 5,000 Units 5,000 Units, Subcutaneous, Q8H, First dose on Mon01/06/25 at 1400, Until Discontinued, Post-op Given 01/07/2025 5:37 AM EDT 5,000 Units Abdomen Right Lower Given 01/06/2025 9:52 PM EDT 5,000 Units A bdomen Left Lower Given 01/06/2025 2:14 PM EDT 5,000 Units A bdomen Right Lower Isolyte-S pH 7.4 infusion Intravenous, at 25 mL/hr, Plasma-LYTE 148, isolyte-S, and isolyte-S pH 7.4 are considered equivalent - including for MAR barcode scanning., CONTINUOUS, Starting on Mon01/06/25 at 0545, Until Mon01/07/25 at 0607, Pre-OpIndications: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) Restarted 01/06/2025 9:27 AM EDT Rate Change 01/06/2025 7:14 AM EDT 50 mL/hr Continue from Pre-Op 01/06/2025 7:13 AM EDT 25 mL/hr Isolyte-S pH 7.4 infusion Intravenous, at 75 mL/hr, Plasma-LYTE 148, isolyte-S, and isolyte-S pH 7.4 are considered equivalent - including for MAR barcode scanning., CONTINUOUS, Starting on Mon01/06/25 at 1145, Until Mon01/07/25 at 0607, Post-op New Bag 01/07/2025 2:29 AM EDT 75 mL/hr New Bag 01/06/2025 11:45 AM EDT 75 mL/hr isosorbide mononitrate SA (Imdur) tab 15 mg 15 mg, Oral, Daily(AM), First dose on Mon01/06/25 at 1145, Until Discontinued, Hold for 24 hours prior to Stress Test and notify service if dose is held This med should NOT be Crushed or Chewed Given 01/07/2025 8:27 AM EDT 15 mg Given 01/06/2025 4:34 PM EDT 15 mg Lidocaine urethral/mucosal 2 % gel Topical, PRN, Starting on Mon01/06/25 at 1854, Until Mon01/07/25 at 1542, Apply to urethra near li catheter for urethral irritation secondary to catheter Given 01/07/2025 1:00 AM EDT Given 01/06/2025 7:44 PM EDT metoprolol succinate XL (toPROL XL) tab 12.5 mg 12.5 mg, Oral, Daily(AM), First dose on Mon01/07/25 at 0900, Until Discontinued, Hold for HR less than 60 or SBP below 100 and notify service if dose is held This med should NOT be Crushed or Chewed. Given 01/07/2025 8:27 AM EDT 12.5 mg multivitamin (Mvi) 1 Tablet 1 Tablet, Oral, DAILY NOON, First dose on Mon01/06/25 at 1145, Until Discontinued Given 01/06/2025 2:13 PM EDT 1 Ta blet naloxone (Narcan) 0.4 MG/ML inj 0.08 mg 0.08 mg, IV Push, PRN Other, If patient is oversedated or Respiratory Rate less than 8, Starting on Mon01/06/25 at 1108, Until Mon01/07/25 at 1542, Call provider if patient is oversedated or Respiratory Rate is less than 8, Post-op NSS 0.9% 500 mL bolus infusion Intravenous, at 500 mL/hr Administer over 60 Minutes, Administer entire volume within 60 minutes or less., PRN, 2 doses, Starting on Mon01/06/25 at 1108, Until Mon01/07/25 at 1542, Hypotension, PRN systolic less than 100, Post-op omeprazole (PriLOSEC) cap 40 mg 40 mg, Oral, Daily(AM), First dose on Mon01/06/25 at 1145, Until Discontinued Given 01/07/2025 8:27 AM EDT 40 mg Given 01/06/2025 2:14 PM EDT 40 mg oxyCODONE (Oxy IR) tab 5 mg 5 mg, Oral, Q4H PRN Pain, Severe, Starting on Mon01/06/25 at 1108, Until Mon01/07/25 at 1542, Post-op Given 01/07/2025 1:28 AM EDT 5 mg Given 01/06/2025 7:59 PM EDT 5 mg oxygen GAS Inhalation, OXYGEN, First dose on Mon01/06/25 at 1145, Until Discontinued, Device/Managed by: Low Flow Device, Goal SPO2 (%): 91-95, Starting Device: Nasal Cannula, Initial Flow Rate (LPM): 2, Lowest Support: Nasal Cannula: Flow 0-6 LPM. Titrate up/down by 1 LPM., Titration Interval: Q2 minutes and as needed., Notify Provider: For sudden DECREASE in resting SPO2 to less than 85% and when escalating delivery device., Wean patient off Oxygen when the oxygen saturation is greater than or equal to 93% Oxygen On 01/07/2025 12:00 AM EDT Oxygen On 01/06/2025 11:45 AM EDT Povidone-Iodine nasal swab 4 Swab 4 Swab, Nasal, PREOP, First dose on Mon01/06/25 at 0600, Last dose on Mon01/06/25 at 0600, For 1 dose, Tilt the bottle slightly, dip one swab into solution and stir vigorously for 10 seconds. Withdraw the swab slowly to avoid wiping solution off during removal. Insert swab comfortably into one nostril and rotate for 15 seconds, covering all surfaces. Then focus on the inside tip of nostril and rotate for an additional 15 seconds. Using a new swab, Repeat above steps in the other nostril (Swab 2). 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) Given 01/06/2025 6:48 AM EDT 4 Swabs rosuvastatin (Crestor) tab 40 mg 40 mg, Oral, Daily(AM), First dose on Mon01/06/25 at 1145, Until Discontinued Given 01/07/2025 8:27 AM EDT 40 mg Given 01/06/2025 4:34 PM EDT 40 mg sertraline (Zoloft) tab 50 mg 50 mg, Oral, Daily(AM), First dose on Mon01/07/25 at 0900, Until Discontinued Given 01/07/2025 8:27 AM EDT 50 mg Thiamine (Vitamin B-1) tab 100 mg 100 mg, Oral, Daily(AM), First dose on Mon01/06/25 at 1145, Until Discontinued Given 01/07/2025 8:27 AM EDT 100 mg Given 01/06/2025 4:34 PM EDT 100 mg documented in this encounter Active and Recently Administered Medications Times are shown in EDT. Scheduled Medication Order 01/05/2025 01/06/2025 01/07/2025 Acetaminophen (Tylenol) tab 975 mg (COMPLETED) 975 mg, Oral, PREOP, First dose on Mon01/06/25 at 0600, Last dose on Mon01/06/25 at 0600, For 1 dose, Maximum 4 g acetaminophen/day. Avoid in patients with severe hepatic impairment or severe active liver disease. Administer 60 minutes prior to OR., Pre-Op 0646 (Given - Provider: Kailey Mccloud RN) Acetaminophen (Tylenol) tab 975 mg 975 mg, Oral, Q8H, First dose on Mon01/06/25 at 1400, Last dose on Mon01/11/25 at 0600, For 5 days, Avoid in patients with severe hepatic impairment or severe active liver disease. Use for 5 days, Post-op 1413 (Given - Provider: Vladimir Prieto RN)2200 (Given - Provider: Ayesha Mcclendon, ROGELIO) 0536 (Given - Provider: Ayesha Mcclendon RN) Allopurinol (Zyloprim) tab 100 mg 100 mg, Oral, Daily(AM), First dose on Mon01/07/25 at 0900, Until Discontinued 826 (Given - Provid er: Lula Romero, ROGELIO) busPIRone (Buspar) tab 10 mg 10 mg, Oral, BID (.AM/PM), First dose on Mon01/06/25 at 2100, Until Discontinued 1958 (Given - Provider: Ayesha Mcclendon, ROGELIO) 826 (Given - Provider: Lula Romero, ROGELIO) ceFAZolin in dextrose (Ancef) ivpb 2 g (COMPLETED) 2 g, IV Piggyback, PREOP, 1 dose, First dose on Mon01/06/25 at 0545, Administer 60 minutes prior to skin incision, Pre-Op 0817 (Given - Provider: Shawn Chaparro CRNA) ceFAZolin in dextrose (Ancef) ivpb 2 g (COMPLETED) 2 g, IV Piggyback, Q8HNOW, 2 doses, First dose on Mon01/06/25 at 1600, Last dose on Mon01/07/25 at 0000, Post-op 1638 (New Bag - Provider: Theresa Reid RN)2354 (New Bag - Provider: Ayesha Mcclendon RN) Cetirizine (ZyrTEC) tab 10 mg 10 mg, Oral, Daily(AM), First dose on Mon01/06/25 at 1145, Until Discontinued 163 (Given - Provider: Theresa Reid RN) 826 (Given - Provider: Lula Romero RN) chlorhexidine gluconate cloth 2 % pad 1 Pad (COMPLETED) 1 Pad, External, PREOP, First dose on Mon01/06/25 at 0600, Last dose on Mon01/06/25 at 0600, For 1 dose, Cleanse surgical site area immediately before transferring intra-op, Pre-Op 0649 (Given - Provider: Kailey Mccloud, ROGELIO) clopidogrel (pLAVix) tab 75 mg 75 mg, Oral, Daily(AM), First dose on Mon01/06/25 at 1145, Until Discontinued 1413 (Given - Provider: Vladimir Prieto RN) 826 (Given - Provider: Lula Romero, ROGEILO) colchicine tab 0.6 mg 0.6 mg, Oral, BID (.AM/PM), First dose on Mon01/06/25 at 2100, Until Discontinued 1958 (Given - Provider: Ayesha Mcclendon RN) 08 (Given - Provider: Lula Romero, ROGELIO) folic acid tab 1 mg 1 mg, Oral, Daily(AM), First dose on Mon01/06/25 at 1145, Until Discontinued 1412 (Given - Provider: Vladimir Prieto RN) 826 (Given - Provider: Lula Romero RN) hEParin inj 5,000 Units 5,000 Units, Subcutaneous, Q8H, First dose on Mon01/06/25 at 1400, Until Discontinued, Post-op 1413 (Given - Provider: Vladimir Prieto RN)2151 (Given - Provider: Ayesha Mcclendon RN) 0537 (Given - Provider: Ayesha Mcclendon RN) isosorbide mononitrate SA (Imdur) tab 15 mg 15 mg, Oral, Daily(AM), First dose on Mon01/06/25 at 1145, Until Discontinued, Hold for 24 hours prior to Stress Test and notify service if dose is held This med should NOT be Crushed or Chewed 163 (Given - Provider: Theresa Reid RN) 826 (Given - Provider: Lula Romero, ROGELIO) metoprolol succinate XL (toPROL XL) tab 12.5 mg 12.5 mg, Oral, Daily(AM), First dose on Mon01/07/25 at 0900, Until Discontinued, Hold for HR less than 60 or SBP below 100 and notify service if dose is held This med should NOT be Crushed or Chewed. 08 (Given - Provid er: Lula Romero RN) multivitamin (Mvi) 1 Tablet 1 Tablet, Oral, DAILY NOON, First dose on Mon01/06/25 at 1145, Until Discontinued 1412 (Given - Provider: Vladimir Prieto RN) omeprazole (PriLOSEC) cap 40 mg 40 mg, Oral, Daily(AM), First dose on Mon01/06/25 at 1145, Until Discontinued 1413 (Given - Provider: Vladimir Prieto RN) 08 (Given - Provider: Lula Romero, ROGELIO) oxygen GAS Inhalation, OXYGEN, First dose on Mon01/06/25 at 1145, Until Discontinued, Device/Managed by: Low Flow Device, Goal SPO2 (%): 91-95, Starting Device: Nasal Cannula, Initial Flow Rate (LPM): 2, Lowest Support: Nasal Cannula: Flow 0-6 LPM. Titrate up/down by 1 LPM., Titration Interval: Q2 minutes and as needed., Notify Provider: For sudden DECREASE in resting SPO2 to less than 85% and when escalating delivery device., Wean patient off Oxygen when the oxygen saturation is greater than or equal to 93% 1145 (Oxygen On - Provider: Vladimir Prieto, ROGELIO)1600 (Oxygen Off - Provider: Theresa Reid RN) 0000 (Oxygen On - Provider: Ayesha Mcclendon RN)0800 (Oxygen Off - Provider: Lula Romero RN) Povidone-Iodine nasal swab 4 Swab (COMPLETED) 4 Swab, Nasal, PREOP, First dose on Mon01/06/25 at 0600, Last dose on Mon01/06/25 at 0600, For 1 dose, Tilt the bottle slightly, dip one swab into solution and stir vigorously for 10 seconds. Withdraw the swab slowly to avoid wiping solution off during removal. Insert swab comfortably into one nostril and rotate for 15 seconds, covering all surfaces. Then focus on the inside tip of nostril and rotate for an additional 15 seconds. Using a new swab, Repeat above steps in the other nostril (Swab 2). Repeat the application in both nostrils using a fresh swab each times (Swab 3 and 4)., Pre-Op 0648 (Given - Provider: Kailey Mccloud, ROGELIO) rosuvastatin (Crestor) tab 40 mg 40 mg, Oral, Daily(AM), First dose on Mon01/06/25 at 1145, Until Discontinued 163 (Given - Provider: Theresa Reid RN) 826 (Given - Provider: Lula Romero, ROGELIO) sertraline (Zoloft) tab 50 mg 50 mg, Oral, Daily(AM), First dose on Mon01/07/25 at 0900, Until Discontinued 826 (Given - Provid er: Lula Romero, ROGELIO) Thiamine (Vitamin B-1) tab 100 mg 100 mg, Oral, Daily(AM), First dose on Mon01/06/25 at 1145, Until Discontinued 1634 (Given - Provider: Theresa Reid, ROGELIO) 08 (Given - Provider: Lula Romero, ROGELIO) Continuous Medication Order 01/05/2025 01/06/2025 01/07/2025 Isolyte-S pH 7.4 infusion (CANCELED) Intravenous, at 25 mL/hr, Plasma-LYTE 148, isolyte-S, and isolyte-S pH 7.4 are considered equivalent - including for MAR barcode scanning., CONTINUOUS, Starting on Mon01/06/25 at 0545, Until Mon01/07/25 at 0607, Pre-Op 0652 (New Bag - Provider: Kailey Mccloud RN)0713 (Continue from Pre-Op - Provider: Shawn Chaparro CRNA)0714 (Rate Change - Provider: Shawn Chaparro CRNA)0926 (Paused - Provider: Shawn Chaparro CRNA - Comment: Switch to gravity)0927 (Restarted - Provider: Shawn Chaparro CRNA)1054 (Anes Intra-Op Fluid - Provider: Shawn Chaparro CRNA) 0607 (Stopped - Provider: Ayesha Mcclendon RN) Isolyte-S pH 7.4 infusion (CANCELED) Intravenous, at 75 mL/hr, Plasma-LYTE 148, isolyte-S, and isolyte-S pH 7.4 are considered equivalent - including for MAR barcode scanning., CONTINUOUS, Starting on Mon01/06/25 at 1145, Until Mon01/07/25 at 0607, Post-op 1145 (New Bag - Provider: Vladimir Prieto RN) 022 (New Bag - Provider: Ayesha Mcclendon RN)06 (Stopped - Provider: Ayesha Mcclendon RN) PRN Medication Order 01/05/2025 01/06/2025 01/07/2025 albuterol-ipratropium (Duoneb) inhalation solution 3 mL 3 mL, Nebulizer, Q6H PRN Dyspnea, Starting on Mon01/06/25 at 1102, Until Mon01/07/25 at 1542, 3 mL = 0.5 mg ipratropium/ 2.5 mg albuterol bupivacaine HCl 30 mL, lidocaine 1 % 20 mL inj (CANCELED) ONCE PRN INTRA PROCEDURE, Starting on Mon01/06/25 at 1013, Until Mon01/06/25 at 1046, Intra-Op 1013 (Given - Provider: Walt Mullins MD - Comment: Incision sites) ceFAZolin 1,000 mg in sodium chloride IR 0.9 % 500 mL irrigation (CANCELED) ONCE PRN INTRA PROCEDURE, Starting on Mon01/06/25 at 0952, Until Mon01/06/25 at 1046, Intra-Op 0952 (Given - Provider: Walt Mullins MD - Comment: PRN intraop) hEParin 5,000 Units in NSS 500 mL infusion (CANCELED) ONCE PRN INTRA PROCEDURE, Starting on Mon01/06/25 at 0900, Until Mon01/06/25 at 1046, Intra-Op 0900 (Given - Provider: Walt Mullins MD - Comment: PRN Intraop)0901 (Given - Provider: Walt Mullins MD - Comment: PRN Intraop)0902 (Given - Provider: Walt Mullins MD - Comment: PRN Intraop) Iopamidol (Isovue M 300) inj (CANCELED) ONCE PRN INTRA PROCEDURE, Starting on Mon01/06/25 at 1006, Until Mon01/06/25 at 1046, Intra-Op 1006 (Given - Provider: Walt Mullins MD - Comment: PRN Intraop) Lidocaine urethral/mucosal 2 % gel Topical, PRN, Starting on Mon01/06/25 at 1854, Until Mon01/07/25 at 1542, Apply to urethra near li catheter for urethral irritation secondary to catheter 1944 (Given - Provider: Ayesha Mcclendon RN) 0100 (Given - Provider: Ayesha Mcclendon RN) naloxone (Narcan) 0.4 MG/ML inj 0.08 mg 0.08 mg, IV Push, PRN Other, If patient is oversedated or Respiratory Rate less than 8, Starting on Mon01/06/25 at 1108, Until Mon01/07/25 at 1542, Call provider if patient is oversedated or Respiratory Rate is less than 8, Post-op NSS 0.9% 500 mL bolus infusion Intravenous, at 500 mL/hr Administer over 60 Minutes, Administer entire volume within 60 minutes or less., PRN, 2 doses, Starting on Mon01/06/25 at 1108, Until Mon01/07/25 at 1542, Hypotension, PRN systolic less than 100, Post-op oxyCODONE (Oxy IR) tab 5 mg 5 mg, Oral, Q4H PRN Pain, Severe, Starting on Mon01/06/25 at 1108, Until Mon01/07/25 at 1542, Post-op 1959 (Given - Provider: Ayesha Mcclendon, RN) 0128 (Given - Provider: Ayesha Mcclendon RN) Thrombin (Thrombin-JMI) topical soln (CANCELED) ONCE PRN INTRA PROCEDURE, Starting on Mon01/06/25 at 1002, Until Mon01/06/25 at 1046, Intra-Op 1002 (Given - Provider: Walt Mullins MD - Comment: PRN intraop on surgifoam pieces) documented in this encounter Advance Directives * [...] were consensually agreed upon. Care Teams Supervisor Cured Meats Relationship Specialty Start Date End Date Fran Peres MD [address] [place] [address] [place] [phone] PCP - General Family Medicine 12/13/23 documented as of this encounter
--- OUTSIDE RECORDS SUMMARY | 2025-01-15 05:13 | External Medical Summary ---
Author Name Unknown Address Unknown Organization K01:[facility] - [facility] [address] [facility] [address] [place] [address] Laboratory Report Ordering Provider Test Date Status SYD JACKSON 01/07/2025 05:12:00 Final Observation Date Value Abnormality Reference (Units ) Status WBC, Total 01/07/2025 05:12:00 7.44 4.00-10.80 (K/uL) Final RBC 01/07/2025 05:12:00 4.16 4.50-5.25 (M/uL) Final Hemoglobin 01/07/2025 05:12:00 13.4 Below low normal 14.0-16.8 (g/dL) Final HCT 01/07/2025 05:12:00 41.2 40.0-48.4 (%) Final MCV 01/07/2025 05:12:00 99.0 82.0-99.5 (fL) Final MCH 01/07/2025 05:12:00 32.2 27.0-34.0 (pg) Final MCHC 01/07/2025 05:12:00 32.5 32.0-36.0 (g/dL) Final RDW 01/07/2025 05:12:00 14.5 11.5-15.5 (%) Final Platelets 01/07/2025 05:12:00 168 140-400 (K/uL) Final MPV 01/07/2025 05:12:00 9.7 6.6-11.1 (fL) Final Nucleated erythrocytes/100 leukocytes [Ratio] in Blood by Automated count 01/07/2025 05:12:00 0 <=0 (/100 WBCs) Final Performing Location [facility] - [address] [place] [id number]
--- OUTSIDE RECORDS SUMMARY | 2025-01-15 05:13 | External Medical Summary ---
Author Name Unknown Address Unknown Organization : Laboratory Report Ordering Provider Test Date Status HARPREET MANZANO 01/06/2025 06:32:41 Final Observation Date Value Abnormality Reference (Units ) Status Glucose Point of Care 01/06/2025 06:32:41 93 70-120 (mg/dL) Final Performing Location
--- OUTSIDE RECORDS SUMMARY | 2025-01-15 05:13 | External Medical Summary | Summary of Care ---
Author Name Unknown Organization [facility] Address [address] [facility] [place] [address] Phone [phone] Care Team Providers Care Creative Intern Name Role Phone Fran Peres MD Primary Care Provide r Reason for Visit * Reason Comments Re-Check 6 mo Encounter Details Date Type Department Care Team (Late st Contact Info) Description 12/25/2024 8:40 AM EDT Office Visit Family Medicine [address] [place] [phone] Fran Peres MD [address] [place] [address] [place] [phone] 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)*; Mixed dyslipidemia; CKD (chronic kidney disease), stage II; Hx pulmonary embolism; Anxiety; HTN, goal below 140/90; Elevated glucose; Other emphysema (HCC); Major depressive disorder with single episode, in partial remission (HCC); Alcohol abuse Allergies No known active allergiesdocumented as of this encounter (statuses as of 12/25/2024) Medications Cyanocobalamin (VITAMIN B-12) 6000 MCG SUBL [...] ns:COPD, 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 determined ([facility]) Inhale 3 mL by mouth every 6 hours as needed for Shortness of Breath. 372 mL 5 1 Active Additional Information Patient not taking.Reported on 12/23/2024 Docusate Sodium 100 MG Oral Capsule (Colace)Indicatio [...] ons: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),Homozygous MTHFR mutation [id number],Hx pulmonary embolism Take 1 Tablet by mouth [...] Tablet 11/27/2024 2:08 PM EDT 5 Active Metoprolol Succinate ER 25 MG Oral Tablet Extended Release 24 Hour (toPROL XL)Indications:At herosclerosis of [place] coronary artery of the [place] heart without angina pectoris Take 0.5 Tablets by mouth in the morning. 5 Active Pantoprazole Sodium 40 MG Oral Tablet Delayed Release (Protonix)Indicat ions:Abdominal pain, epigastric Take 1 Tablet by mouth in the morning. 30 minutes before the first meal of the day. Do not crush, split or chew the tablet. 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 09/14/2015 Factor V Leiden mutation 12/30/2013 Overview (12/30/2013): has one copy of Factor V Leiden mutation Mixed dyslipidemia 11/25/2009 GENERAL OSTEOARTHROSIS Tobacco use disorder Exudative age-related macula r degeneration of both eyes with active choroidal neovascularization documented as of this encounter (statuses as of 12/25/2024) Resolved Problems Problem Noted Date Diagnosed Date [...] pulmonary artery 12/23/2013 04/19/2018 Overview (12/25/2013): Admitted [place] Encounter for examination fo r normal comparison [...] as of this encounter (statuses as of 12/25/2024) Immunizations Name Administration Dates Next Due COVID-19 [...] Sign Reading Time Taken Comments Blood Pressure 100/70 12/25/2024 8:24 AM EDT Pulse 58 12/25/2024 8:24 AM EDT Temperature 35.9 °C (96.6 °F) 12/25/2024 8:24 AM ED T Respiratory Rate - - Oxygen Saturation 100% 12/25/2024 8:24 AM EDT Inhaled Oxygen Concentration - - Weight 102.4 kg (225 lb 12.8 oz) 12/25/2024 8:24 AM EDT Height - - Body Mass Index 27.49 10/23/2024 9:53 AM EST documented in this encounter Progress Notes * Fran Peres MD - 12/25/2024 8:36 AM EDT Subjective: HPI: Jeff Powers is a 89 year old male with hx of HLD, AAA, CKD II-III, factor V leiden mutation oneliquis, hx of PE, DJD, coronary artery calcification, R internal iliac embolization s/p Amplatzer Vascular Plug3 and repair of AAA/DONIS aneurysms with Medtronic Endurant device, emphysema with chronic hx of smoking, Chronic alcohol abuse seen for Here with and daughter Pt is sched to undergo L common iliac artery aneurysm on 01/06 - pt denied any symptoms Factor V leiden mutation with hx of PE: - currently on eliquis CAD calcification with hx of vascular surgery: - on plavix and crestor ETOH abuse: - pt continues to drink daily Patient Active Problem List Diagnosis GENERAL OSTEOARTHROSIS Tobacco use disorder Mixed dyslipidemia 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) Homozygous MTHFR mutation [id number] Abdominal aortic aneurysm without rupture (HCC) BMI 26.0-26.9,adult 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 Multiple Vitamins-Minerals (PRESERVISION AREDS 2) Capsule Take 1 Capsule by mouth in the morning. Ipratropium-Albuterol 0.5-2.5 (3) MG/3ML Inhalation Solution (Duoneb) Inhale 3 mL by mouth every 6 hours as needed for Shortness of Breath. (Patient not taking: Reported on 12/23/2024) 372 mL 5 Docusate Sodium 100 MG [...] mouth in the morning. 50 Tablet 3 Clopidogrel Bisulfate 75 MG Oral Tablet (pLAVix) [...] EVERY DAY AT BEDTIME 100 Tablet 0 Metoprolol Succinate ER 25 MG Oral Tablet Extended Release 24 Hour (toPROL XL) Take 0.5 Tablets by mouth in the morning. Pantoprazole Sodium 40 MG Oral Tablet Delayed Release (Protonix) Take 1 Tablet by mouth in the morning. 30 minutes before the first meal of the day. Do not crush, split or chew the tablet. 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 [facility] Internal hemorrhoids 07/24/2007 Macular degeneration (senile) of retina 06/26/2014 Nonexudative age-related macular degeneration, bilateral, intermediate dry stage Other seborrheic keratosis 06/17/2002 maulik-surgical removal under local anesthesia Saddle embolus of pulmonary artery ([facility]) 12/23/2013 Admitted [place] Tobacco use disorder Vitamin D deficiency 11/25/2009 [...] 60% ENDOVASC ABDO REPR W/BI DEVICE 02/13/2015 [facility] ENDOVASC ABDO REPR W/BI DEVICE N/A 02/13/2015 Repair of aorta and iliac aneurysms with Medtronic Endurant device (Main body: [id number], Right iliac limb extension: , Left iliac limb 429) by Dr. Lee. FEM/POP ARTERY REVASC W/ STENT+ANGIOPLASTY Left 09/22/2015 FEM/POP ARTERY REVASC W/ STENT+ANGIOPLASTY performed by [place] Lee MD at [facility] INJECTION OF EYE DRUG Right 07/05/2017 # [...] performed by [place] Lee MD at OR [facility] IR EMBOLIZATION ARTERIAL NON HEMMORHAGE Right 02/13/2015 [...] OU CONSENT SIGNED, Dr. Deleon MISCELLANEOUS ORDER (HS ONLY) Bilateral 07/17/2018-07/17/2019 EYLEA CONSENT [...] performed by [place] Lee MD at OR [facility] US AAA SCREEN, VASCULAR LAB N/A 10/05/2016 [...] Vaping/E-Cigarette Devices ROS: -Per HPI OBJECTIVE: BP 100/70 | Pulse 58 | Temp 96.6 °F (35.9 °C) | Wt 225 lb 12.8 oz (102.4 kg) | SpO2 100% | BMI 27.49 kg/m² | BSA 2.34 m² PHYSICAL EXAM: Vitals are reviewed General:. NAD, well developed HEENT:. Normal Conjunctiva, EOMI Cardiac:. Normal S1, S2, no murmur Lungs:. CTA, no wheezing or crackles Abd:. soft, ND, NT MSK:. No LE edema Psych:. AAOx3, normal affect ASSESSMENT/PLAN: BP has been well with lower dose of metoprolol 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) (Primary) - CBC WITH WBC DIFFERENTIAL Mixed dyslipidemia - LIPID PANEL WITHOUT DIRECT LDL CKD (chronic kidney disease), stage II - Cr has been stable Hx pulmonary embolism - on eliquis Anxiety - on zoloft HTN, goal below 140/90 - BASIC METABOLIC PANEL Elevated glucose - HEMOGLOBIN A1C Other emphysema (HCC) - stable Major depressive disorder with single episode, in partial remission (HCC) - on zoloft Alcohol abuse - not interested in quitting Fran Peres MD [facility], [address] [id number] documented in this encounter Nursing Notes * Maria Fernanda Kulkarni CMA - 12/25/2024 8:23 AM EDT He 6 mo routine visit. He has no concerns today. documented in this encounter Plan of Treatment Upcoming Encounters Date Type Department Care Team (Late st Contact Info) Description 01/06/2025 7:15 AM EDT Hospital Encounter OR C, OPERATING ROOM [facility], [facility] [address] [facility] [place] [address] Walt Raphael MD [address], [place] [id number] 01/06/2025 7:15 AM EDT - 01/06/2025 10:25 AM EDT Surgery OR [facility], OPERATING ROOM [facility], [facility] [address] [facility] [place] [phone] Walt Raphael MD [address] [place] [address] ENDOVASCULAR REPAIR [facility] RADIOLOGY SUPERVISION & INTERPRETATION ONE ENDOPROSTHESIS 01/22/2025 9:15 AM EDT Imaging Radiology [address] [place] [phone] 01/29/2025 10:30 AM EDT Office Visit Vascular Surgery, [facility] [address] [place] [phone] Walt Raphael MD [address] [place] [address] 02/26/2025 11:45 AM EDT Office Visit Ophthalmology, [facility] [address] [place] [phone] Mau Deleon DO [address] [place] [phone] 07/28/2025 11:20 AM EST Office Visit Family Medicine [address] [place] [phone] Britney Vasquez MD [address] [place] [address] [place] [phone] 08/12/2025 9:30 AM EST Office Visit Cardiology [address] [place] [phone] Jesus Alberto Montiel PAZeeC [address] [place] [phone] Pending Results Name Type Priority Associated Diagnoses Date /Time LIPID PANEL WITHOUT DIRECT LDL Lab Routine Mixed dyslipidemia 12/25/2024 8:51 AM EDT HEMOGLOBIN A1C Lab Routine Elevated glucose 12/25/2024 8:51 AM EDT BASIC METABOLIC PANEL Lab Routine HTN, goal below 140/90 12/25/2024 8:51 AM EDT CBC WITH WBC DIFFERENTIAL Lab Routine 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) 12/25/2024 8:51 AM EDT CBC Lab Routine 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) 12/25/2024 8:51 AM EDT DIFFERENTIAL, AUTOMATED Lab Routine 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) 12/25/2024 8:51 AM EDT Scheduled Procedures Name Priority Associated Diagnoses Date/Ti me ENDOVASCULAR REPAIR [employer] 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) Pre-op testing 01/06/2025 7:15 AM EDT OPEN BRACHIAL ARTERY EXPOSURE FOR ENDOVASCULAR PROSTHESIS 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) Aortic root dilatation (HCC) CKD (chronic kidney disease), 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) residential current use of 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 Mixed dyslipidemia History of endovascular stent graft for abdominal aortic aneurysm 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) Pre-op testing 01/06/2025 7:15 AM EDT Health Maintenance Due Date Last Done Comments DISCUSS TOBACCO CESSATION (REFER TO SMARTSET #1973) 1937 Depression Monitoring 1949 Alpha-1 Antitrypsin 11/23/1955 Adult Wellness Visit 05/03/2023 05/03/2022 COVID-19 Vaccine ( season) 2024 05/03/2022, 11/02/2021, 11/06/2020, Additional history exists O2 ASSESSMENT COMPLETED IN PAST YEAR FOR COPD 12/25/2025 12/25/2024 DTap/Tdap Vaccines (3 - Td or Tdap) [...] this encounter Medical Devices Implanted Type Area Alteration Inspector Device Identifier Shelf Expiration Date Model / Serial / Lot Graft Aaa Bif [id number] - [id number] - [id number] Implanted:Qty: 1 on 02/13/2015 by [place] Lee MD at OR [facility] Aorta [employer] : VASCULAR 12/02/2016 [id number] / [id number] / Limb Contralat [id number] - [id number] - [id number] Implanted:Qty: 1 on 02/13/2015 by [place] Lee MD at OR [facility] Aorta [employer] : VASCULAR 11/19/2016 [id number] / [id number] / Limb Contralat [id number] - [id number] - [id number] Implanted:Qty: 1 on 02/13/2015 by [place] Lee MD at OR [facility] Aorta [employer] : VASCULAR [id number] / [id number] / Plug Vasc Ampl 16mm [id number] - [id number] Implanted:Qty: 1 on 02/13/2015 by [place] Lee MD at OR [facility] Aorta Three[employer] Photos [id number] / / documented as of [...] V Leiden mutation (HCC) Primary hypercoagulable state residential current use of 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 Mixed dyslipidemia Mixed hyperlipidemia History of endovascular stent graft for abdominal aortic aneurysm Blood vessel replaced by other means Pre-op testing Preoperative examination, unspecified 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)- Primary Primary hypercoagulable state Mixed dyslipidemia Mixed hyperlipidemia CKD (chronic kidney disease), stage II Chronic kidney disease, Stage II (mild) Hx pulmonary embolism Personal history of pulmonary embolism Anxiety Anxiety state, unspecified HTN, goal below 140/90 Unspecified essential hypertension Elevated glucose Other abnormal glucose Other emphysema (HCC) Other emphysema Major depressive disorder with single episode, in partial remission (HCC) Alcohol abuse Alcohol abuse, unspecified 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) Aortic root dilatation (HCC) 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), stage II Chronic kidney disease, Stage II (mild) 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) Primary hypercoagulable state residential current use of 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 Mixed dyslipidemia [...] and were consensually agreed upon. Care Teams Creative Intern Relationship Specialty Start Date End Date Fran Peres MD [address] [place] [address] [place] [phone] PCP - General Family Medicine 12/13/23 documented as of this encounter"
--- OUTSIDE RECORDS SUMMARY | 2025-01-15 05:13 | External Medical Summary ---
Author Name Unknown Address Unknown Organization : Laboratory Report Ordering Provider Test Date Status HARPREET MANZANO 01/06/2025 09:18:55 Final NORMAL (NON-HEPARINIZED) 74- 137 SECONDS
HEPARINIZED � � � � � � � � � 200+ � SECONDS
CRITICAL GREATER THAN � � 1000 � SECONDS
null Observation Date Value Abnormality Reference (Units ) Status Kaolin activated time [Units/volume] in Blood 01/06/2025 09:18:55 199 50-1000 (secs) Final Performing Location
--- OUTSIDE RECORDS SUMMARY | 2025-01-15 05:13 | External Medical Summary | Summary of Care ---
Author Name Unknown Organization [facility] Address [address] [place] [address] Phone [phone] Care Team Providers Care Cardroom Worker Name Role Phone Fran Peres MD Primary Care Provide r Encounter Details Date Type Department Care Team (Late st Contact Info) Description 01/06/2025 CardioDiagnostic Study Unspecified Department Brice Goyal MD [address] [place] [address] EKG Report Allergies No known active allergiesdocumented as of this encounter (statuses as of 01/07/2025) Medications traMADol HCl 50 MG Oral Tablet (Ultram) Take 1 Tablet by mouth every 12 hours as needed for severe Pain 5 Tablet 01/08/20 25 Active Cyanocobalamin (VITAMIN B-12) [address] 1 Tablet under the tongue every morning. Suspended folic acid 1 MG Tablet Take 1 Tablet by mouth every other day. Suspended vitamin c (ASCORBIC ACID) 500 MG Tablet Take 1 Tablet by mouth every other day. Suspended Garlic 500 MG CAPS Take 1 Cap by mouth every other day. Suspended Multiple Vitamins-Minerals (MULTIVITAMIN ADULT) TABS Take by mouth. Claudette pended Cholecalciferol (VITAMIN D) 2000 UNITS Capsule Take 1 Capsule by mouth in the morning. Suspended Multiple Vitamins-Minerals (PRESERVISION AREDS 2) Capsule Take 1 Capsule by mouth in the morning. Suspended Ipratropium-Albut anthony 0.5-2.5 (3) MG/3ML Inhalation Solution (Duoneb)Indicatio ns:COPD, 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 determined ([facility]) Inhale 3 mL by mouth every 6 hours as needed for Shortness of Breath. 372 mL 5 01/15/20 21 Suspended Additional Information Patient not taking.Reported on 01/06/2025 Docusate Sodium 100 MG Oral Capsule (Colace)Indicatio ns:Constipation, unspecified constipation type Take 1 Cap by mouth daily. 60 Cap 2 06/25/20 21 Suspended Additional Information Patient taking differently:100 mg OralPRN, Reported on 10/23/2024 Calcium 200 MG Oral Tablet Take 200 mg by mouth in the morning. Suspended Isosorbide Mononitrate ER 30 MG Oral Tablet Extended Release 24 Hour (Imdur)Indication s:Coronary artery calcification Take 0.5 Tablets by mouth in the morning. 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 90 Tablet 1 5 5:43 PM EST 07/30/20 24 Suspended Loratadine 10 MG Oral Tablet (Claritin)Indicat ions:Tinnitus of both ears Take 1 Tablet by mouth in the morning. 30 Tablet 09/12/19 25 Suspended busPIRone HCl 10 MG Oral Tablet (Buspar)Indicatio ns:PURVI (generalized anxiety disorder) Take 1 Tablet by mouth in the morning and 1 Tablet before bedtime. 180 Tablet 2 5 4:04 PM EDT 10/01/19 25 Suspended Apixaban 5 MG Oral Tablet (Eliquis)Indicati ons: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),Homozygous MTHFR mutation [id number],Hx pulmonary embolism Take 1 Tablet by mouth in the morning and 1 Tablet before bedtime. 200 Tablet 1 5 10:27 AM EST 10/22/19 25 Suspended predniSONE 20 MG Oral Tablet (Deltasone)Indica tions:Rib pain on left side One daily 10 Tablet 10/31/19 25 Suspended Additional Information Patient not taking.Reported on 01/06/2025 Rosuvastatin Calcium 40 MG Oral Tablet (Crestor)Indicati ons:Mixed dyslipidemia TAKE ONE TABLET BY MOUTH EVERY DAY AT BEDTIME 100 Tablet 5 2:08 PM EDT 11/27/19 25 Suspended Pantoprazole Sodium 40 MG Oral Tablet Delayed Release (Protonix)Indicat ions:Abdominal pain, epigastric Take 1 Tablet by mouth in the morning. 30 minutes before the first meal of the day. Do not crush, split or chew the tablet. 90 Tablet 1 5 11:45 AM EDT 12/11/19 25 Suspended Colchicine 0.6 MG Oral TabletIndications :Gouty arthropathy Take 1 Tablet by mouth in the morning and 1 Tablet before bedtime. 60 Tablet 5 5 3:13 PM EDT 01/04/20 25 Suspended Allopurinol 100 MG Oral Tablet (Zyloprim)Indicat ions:Gouty arthropathy Take 1 Tablet by mouth in the morning. 90 Tablet 1 5 3:13 PM EDT 01/04/20 25 Suspended Metoprolol Succinate ER 25 MG Oral Tablet Extended Release 24 Hour (toPROL XL)Indications:At herosclerosis of jackson coronary artery of jackson heart without angina pectoris Take one-half tablet by mouth in the morning. 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 04/19/2018 Abdominal aortic aneurysm without rupture 2015 Homozygous MTHFR mutation [id number] 09/14/2015 Factor V Leiden mutation 12/30/2013 Overview [...] on file documented as of this encounter Procedure Notes * Brice Covarrubias MD - 01/06/2025 1:24 PM EDTAssociated Order(s): EKG REPORT REASON FOR STUDY: CHEST PAIN PACU CONCLUSIONS: Sinus rhythm with 1st degree AV block Otherwise normal ECG When compared with ECG of 06-Jan-2025 11:45, No significant change was found Ventricular Rate: 64 Atrial Rate: 64 IA Interval: 258 QRS Duration: 90 QT/QTc: 452/466 ms P-R-T [place]: 71 : -18 : 51 degrees documented in this encounter Plan of Treatment Upcoming Encounters Date Type Department Care Team (Late st Contact Info) Description 01/22/2025 9:15 AM EDT Imaging Radiology [facility] [address] [place] [phone] 01/29/2025 10:30 AM EDT Office Visit Vascular Surgery, [facility] [address] [place] [phone] [facility] [address] [facility] [address] 02/26/2025 11:45 AM EDT Office Visit Ophthalmology, [facility] [address] [place] [phone] Mau Deleon DO [address] [place] [address] 07/28/2025 11:20 AM EST Office Visit Family Medicine [address] [place] [phone] Britney Vasquez MD [address] [place] [address] [place] [phone] 08/12/2025 9:30 AM EST Office Visit Cardiology [address] [place] [address] Jesus Alberto Montiel PA-C [address] [place] [phone] Health Maintenance Due Date Last Done Comments DISCUSS TOBACCO CESSATION (REFER TO SMARTSET #6690) 1935 Alpha-1 Antitrypsin 11/23/1953 Depression Monitoring 04/23/2021 [...] this encounter Medical Devices Implanted Type Area Cabin Cleaning Supervisor Device Identifier Shelf Expiration Date Model / Serial / Lot Graft Aaa Bif [id number] - [id number] - [id number] Implanted:Qty: 1 on 02/13/2015 by Clayton Lee MD at OR [facility] Aorta [employer] : VASCULAR 12/02/2016 [id number] / [id number] / Limb Contralat [id number] - [id number] - [id number] Implanted:Qty: 1 on 02/13/2015 by Clayton Lee MD at OR [facility] Aorta [employer] : VASCULAR 11/19/2016 [id number] / [id number] / Limb Contralat [id number] - [id number] - [id number] Implanted:Qty: 1 on 02/13/2015 by Clayton Lee MD at OR [facility] [place] Aorta [employer] : VASCULAR [id number] / [id number] / Plug Vasc Ampl 16mm 9-Plug-016 - [id number] Implanted:Qty: 1 on 02/13/2015 by Clayton Lee MD at OR [facility] [place] [place] Aorta [employer] TREVON 9-PLUG-01 6 / / Grft Excldr 36foi11.5cm - [id number] - [id number] Implanted:Qty: 1 on 01/06/2025 by Walt Raphael MD at OR [facility] Left: Iliac [employer] [id number] 03/05/2027 [id number] / [id number] / [id number] 14.5mm X 10cm [place] Excluder Iliac Branch Endoprosthesis Iliac Branch Component Implanted:Qty: 1 on 01/06/2025 by Walt Raphael MD at OR [facility] Left: Iliac [employer] [id number] 10/17/2027 [id number] / [id number] / [id number] Cath Viabahnbx [id number] 135cm - [id number] - [id number] Implanted:Qty: 1 on 01/06/2025 by Walt Raphael MD at OR [facility] Left: Iliac [employer] [id number] 08/18/2026 [id number] / [id number] / [id number] Description:left internal il iac documented as of this encounter Procedures Procedure Name Priority Date/Time Associated Diagnosis Comments EKG REPORT 01/06/2025 1:24 PM EDT documented in this encounter Results * EKG REPORT (01/06/2025 1:24 PM EDT) 01/06/2025 1:24 PM EDT Narrative Procedure Note Brice Covarrubias MD - 01/06/2025 1:24 PM EDT REASON FOR STUDY: CHEST PAIN PACU CONCLUSIONS: Sinus rhythm with 1st degree AV block Otherwise normal ECG When compared with ECG of 06-Jan-2025 11:45, No significant change was found Ventricular Rate: 64 Atrial Rate: 64 IA Interval: 258 QRS Duration: 90 QT/QTc: 452/466 ms P-R-T [place]: 71 : -18 : 51 degrees Brice Goyal MD EKG Final Res ult documented in this encounter Advance Directives * Full Code (Latest Code Status on File) Date Activated Date Inactivated Comments 01/06/2025 11:10 AM This order re flects the patients wishes [...] and were consensually agreed upon. Care Teams Cardroom Worker Relationship Specialty Start Date End Date Fran Peres MD [address] [place] [address] [place] [id number] PCP - General Family Medicine 12/13/23 documented as of this encounter
--- OUTSIDE RECORDS SUMMARY | 2025-01-15 05:13 | External Medical Summary ---
Author Name Unknown Address Unknown Organization : Laboratory Report Ordering Provider Test Date Status HARPREET MANZANO 01/06/2025 09:35:02 Final Observation Date Value Abnormality Reference (Units) Status Blood draw [PhenX] 01/06/2025 09:35:02 Arterial Draw Final pH, POC (i-STAT) 01/06/2025 09:35:02 7.361 7.350-7.450 Final PCO2 POC (i-STAT) 01/06/2025 09:35:02 46.0 Above high normal 35.0-45.0 (mm Hg) Final PO2 POC (i-STAT) 01/06/2025 09:35:02 162 Above high normal 75-100 (mm Hg) Final Base excess standard in Arterial blood by calculation 01/06/2025 09:35:02 0 -2-2 (mmol/L) Final Bicarbonate, Venous, POC (i-STAT) 01/06/2025 09:35:02 26.1 23.0-31.0 (mmol/L) Final O2 Sat, calculated POC (i-STAT) 01/06/2025 09:35:02 99.0 Above high normal 94.0-98.0 (%) Final Glucose, whole blood 01/06/2025 09:35:02 104 70-120 (mg/dL) Final Potassium, Whole Blood 01/06/2025 09:35:02 3.9 3.5-5.1 (mmol/L) Final Sodium, Whole Blood 01/06/2025 09:35:02 137 135-146 (mmol/L) Final Calcium, Ionized, Whole Blood 01/06/2025 09:35:02 1.23 1.13-1.32 (mmol/L) Final Hemoglobin POC (i-STAT) 01/06/2025 09:35:02 15.0 14.0-16.8 (g/dL) Final HCT 01/06/2025 09:35:02 44 40-48 (%) Final Performing Location
--- OUTSIDE RECORDS SUMMARY | 2025-01-15 05:13 | External Medical Summary | Summary of Care ---
Author Name Unknown Organization [facility] Address [address] [facility] [address] Phone [phone] Care Team Providers Care Concrete Pavement Installer Name Role Phone Fran Peres MD Primary [...] Expiration Date V isits Requested Visits Authorized [id number] Authorized Precert 03/05/2020 09/10/2099 99 99 Encounter Details Date Type Department Care Team (Late st Contact Info) Description 12/23/2024 11:45 AM EDT Office Visit Ophthalmology, [facility] [address] [place] [phone] Mau Deleon DO [address] [place] [phone] Exudative age-related macular degeneration of right eye with active choroidal neovascularization (HCC)*; 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) Allergies No known active allergiesdocumented as of this encounter (statuses as of 12/23/2024) Medications Cyanocobalamin (VITAMIN B-12) 6000 MCG SUBL [...] ons: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),Homozygous MTHFR mutation [id number],Hx pulmonary embolism Take 1 Tablet by mouth [...] Release 24 Hour (toPROL XL)Indications:At herosclerosis of council coronary artery of council heart without angina pectoris Take 0.5 Tablets [...] as of this encounter (statuses as of 12/23/2024) Active Problems Problem Noted Date Diagnosed Date [...] 0 03/04/2019 Actinic keratosis 12/12/2018 Atherosclerosis of council 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council heart without angina pectoris 04/19/2018 Abdominal aortic aneurysm without rupture 2015 Homozygous MTHFR mutation [id number] 09/14/2015 Factor V Leiden mutation 12/30/2013 Overview (12/30/2013): has one copy of Factor V Leiden mutation Mixed dyslipidemia 11/25/2009 GENERAL OSTEOARTHROSIS Tobacco use disorder Exudative age-related macula r degeneration of both eyes with active choroidal neovascularization documented as of this encounter (statuses as of 12/23/2024) Resolved Problems Problem Noted Date Diagnosed Date [...] pulmonary artery 12/23/2013 04/19/2018 Overview (12/25/2013): Admitted [place] Encounter for examination fo r normal comparison [...] as of this encounter (statuses as of 12/23/2024) Immunizations Name Administration Dates Next Due COVID-19 [...] this encounter Progress Notes * Mau Deleon, - 12/23/2024 11:45 AM EDT [facility] [place] Nursing Notes: Caro Leahy RN 12/23/24 1151 Signed Jeff Powers is [...] 07/28/22, 04/28/22, 01/20/22, 10/28/21, 04/22/21, 01/21/21, 10-15-20, 06-25-20, 03-05-20, --20, 07-25-19, 04-18-19, 19, 18, 05-08-18, 03-27-2018, 12-27-18, --18, 08-25-17, 07-05-17) - 9 weeks since last injection - s/p Eylea OS 10/21/24, 09/05/24, 05/14/24, 03/19/24, 12/21/23, 10/19/23, 08/17/23, 06/15/23, 04/11/23, 02/09/23, 12/12/22, 09/29/22, 07/28/22, 04/28/22, 01/20/22, 10/28/21, 04/22/21, 01/21/21, 10-15-20, 06-25-20, 03-05-20,11-14-19, 07-25-19, 04-18-19, 01-17-19, 18, 18,18, 18, 08-25-17, 07-13-17) - 9 weeks since last [...] Mau Deleon DO Eylea 2mg lot # [id number] Exp. Date: 12/2025 * Caro Leahy RN [...] Upcoming Encounters Date Type Department Care Team (Latest Contact Info) Description 12/25/2024 8:40 AM EDT Office Visit Family Medicine [address] [phone] Fran Peers MD [address] [place] [address] [place] [address] 01/06/2025 7:15 AM EDT Hospital Encounter [facility] [address] [place] [address] Walt Raphael MD [address] [place], [place] [id number] 01/06/2025 7:15 AM EDT - 01/06/2025 10:25 AM EDT Surgery [facility] [address] [place] [phone] Walt Raphael MD [address] [place], [place] [id number] ENDOVASCULAR REPAIR [facility] RADIOLOGY SUPERVISION & INTERPRETATION ONE ENDOPROSTHESIS 01/22/2025 9:15 AM EDT Imaging Radiology [facility] [address] [place] [address] 01/29/2025 10:30 AM EDT Office Visit Vascular Surgery, [facility] [address] [place] [phone] Walt Raphael MD [address] [facility] [place] [address] 08/12/2025 9:30 AM EST Office Visit Cardiology [address] [place] [address] Jesus Alberto Montiel PA-C [address] [place] [phone] Scheduled Orders Name Type Priority Associated Diagnoses Orde r Schedule RETINA SCAN DIAGNOSTIC IMAGE, POSTERIOR Procedures Routine Exudative age-related macular degeneration of right eye with active choroidal neovascularization (HCC) Ordered: 12/23/2024 Scheduled Procedures Name Priority Associated Diagnoses Date/Ti hi ENDOVASCULAR REPAIR [employer] 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 Mixed dyslipidemia [...] Comments DISCUSS TOBACCO CESSATION (REFER TO SMARTSET #2618) 1935 Depression Screening 1947 Alpha-1 Antitrypsin 11/23/1953 Adult Wellness Visit 05/03/2023 05/03/2022 COVID-19 Vaccine ( season) 2024 05/03/2022, 11/02/2021, 11/06/2020, Additional history exists O2 ASSESSMENT COMPLETED IN PAST YEAR FOR COPD 12/10/2025 12/10/2024 DTap/Tdap Vaccines (3 - Td or Tdap) [...] this encounter Medical Devices Implanted Type Area Customer Trainer Device Identifier Shelf Expiration Date Model / Serial / Lot Graft Aaa Bif [id number] - [id number] - [id number] Implanted:Qty: 1 on 02/13/2015 by Clayton Lee MD at [place] [facility] Aorta [employer] : VASCULAR 12/02/2016 [id number] / [id number] / Limb Contralat [id number] - [id number] - [id number] Implanted:Qty: 1 on 02/13/2015 by Clayton Lee MD at [place] [facility] Aorta [employer] : VASCULAR 11/19/2016 [id number] / [id number] / Limb Contralat [id number] - [id number] - [id number] Implanted:Qty: 1 on 02/13/2015 by Clayton Lee MD at [place] [facility] Aorta [employer] : VASCULAR [id number] / [id number] / Plug Vasc Ampl 16mm 9-Plug-016 - [id number] Implanted:Qty: 1 on 02/13/2015 by Clayton Lee MD at [place] [facility] Aorta [employer] TREVON 9-PLUG-0 16 / / documented as [...] V Leiden mutation (HCC) Primary hypercoagulable 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 Care Teams Concrete Pavement Installer Relationship Specialty Start Date End Date Fran Peres MD [address] [place] [address] [place] [address] PCP - General Family Medicine 12/13/23 documented as of this encounter
--- OUTSIDE RECORDS SUMMARY | 2025-01-15 05:13 | External Medical Summary | Summary of Care ---
Author Name Unknown Organization [facility] Address [address] [address] Phone [phone] Care Team Providers Care Belt Builder Helper Name Role Phone Fran Peres MD Primary Care Provide r Reason for Visit * Reason Comments Medication Refill Encounter Details Date Type Department Care Team (Late st Contact Info) Description 01/02/2025 Refill Family Medicine [address] [place] [address] [place] [address] Gouty arthropathy Allergies No known active allergiesdocumented as of this encounter (statuses as of 01/03/2025) Medications Cyanocobalamin (VITAMIN B-12) 6000 MCG SUBL [...] Tablet (pLAVix)Indicatio ns:Factor V Leiden mutation ([facility]),Iliac artery thrombosis, left (HCC),Infrarenal abdominal aortic [...] ons: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),Homozygous MTHFR mutation [id number],Hx pulmonary embolism Take 1 Tablet by mouth [...] 1 Tablet before bedtime. 60 Tablet 5 01/04/20 25 Active Allopurinol 100 MG Oral Tablet (Zyloprim)Indicat ions:Gouty arthropathy Take 1 Tablet by mouth in the morning. 90 Tablet 1 01/04/20 25 Active Metoprolol Succinate ER 25 MG Oral Tablet Extended Release 24 Hour (toPROL XL)Indications:At herosclerosis of [place] coronary artery of [place] heart without angina pectoris Take one-half tablet by mouth in the morning. 50 Tablet 3 01/04/20 25 Active Colchicine 0.6 MG Oral TabletIndications [...] EST 07/12/20 24 025 Discontin ued(Refil l) Hospital, Clinic, [...] as of this encounter (statuses as of 01/03/2025) Active Problems Problem Noted Date Diagnosed Date [...] 0 03/04/2019 Actinic keratosis 12/12/2018 Atherosclerosis of [place] 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[place] heart without angina pectoris 04/19/2018 Abdominal aortic aneurysm without rupture 2015 Homozygous MTHFR mutation [id number] 09/14/2015 Factor V Leiden mutation 12/30/2013 Overview (12/30/2013): has one copy of Factor V Leiden mutation Mixed dyslipidemia 11/25/2009 GENERAL OSTEOARTHROSIS Tobacco use disorder Exudative age-related macula r degeneration of both eyes with active choroidal neovascularization documented as of this encounter (statuses as of 01/03/2025) Resolved Problems Problem Noted Date Diagnosed Date [...] pulmonary artery 12/23/2013 04/19/2018 Overview (12/25/2013): Admitted Boundary Encounter for examination fo r normal comparison [...] as of this encounter (statuses as of 01/03/2025) Immunizations Name Administration Dates Next Due COVID-19 [...] encounter Miscellaneous Notes * Telephone Encounter - Caridad Baker [facility] - 01/03/2025 1:46 PM EDTSigned Prescriptions: Disp Refills Colchicine 0.6 MG Oral Tablet 60 Tab*5 Sig: Take 1 Tablet by mouth in the morning and 1 Tablet before bedtime.Authorizing Provider: Rashmi PERESUser: CARIDAD BAKER Allopurinol 100 MG Oral Tablet (Zyloprim) 90 Tab*1 Sig: Take 1 Tablet bymouth in the morning.Authorizing Provider: Rashmi PERES User: CARIDAD BAKER documented in this encounter Plan of Treatment Upcoming Encounters Date Type Department Care Team (Late st Contact Info) Description 01/06/2025 7:15 AM EDT Hospital Encounter [place] [facility], [place] [facility] [place]AL[place] BARRAZA [address] [place] [address] Walt Raphael MD [address] [facility] [place] [id number] 01/06/2025 7:15 AM EDT - 01/06/2025 10:05 AM EDT Surgery [place] [facility], [facility] [facility] [facility] [place] [address] [place] [address] Walt Raphael MD [address] [place] [address] ENDOVASCULAR REPAIR [employer] RADIOLOGY SUPERVISION & INTERPRETATION ONE ENDOPROSTHESIS 01/22/2025 9:15 AM EDT Imaging Radiology [address] [place] [address] 01/29/2025 10:30 AM EDT Office Visit Vascular Surgery, [facility] [address] [place] [address] Walt Raphael MD [address] [place] [address] 02/26/2025 11:45 AM EDT Office Visit Ophthalmology, [facility] [address] [place] [phone] Mau Deleon DO [address] [place] [address] 07/28/2025 11:20 AM EST Office Visit Family Medicine [address] [place] [phone] Britney Vasquez MD [address] [place] [address] [place] [phone] 08/12/2025 9:30 AM EST Office Visit Cardiology [address] [place] [address] Jesus Alberto Montiel PA-C [address] [place] [address] Scheduled Procedures Name Priority Associated Diagnoses Date/Ti ar ENDOVASCULAR REPAIR [employer] 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) Pre-op testing 01/06/2025 7:15 AM EDT OPEN BRACHIAL ARTERY EXPOSURE FOR ENDOVASCULAR PROSTHESIS 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) Aortic root dilatation (HCC) CKD (chronic kidney disease), 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) [facility] current use of 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 Mixed dyslipidemia History of endovascular stent graft for abdominal aortic aneurysm 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) Pre-op testing 01/06/2025 7:15 AM EDT Health Maintenance Due Date Last Done Comments DISCUSS TOBACCO CESSATION (REFER TO SMARTSET #6622) 1935 Alpha-1 Antitrypsin 11/23/1953 Depression Monitoring 04/23/2021 [...] this encounter Medical Devices Implanted Type Area Agricultural Mechanic Device Identifier Shelf Expiration Date Model / Serial / Lot Graft Aaa Bif [id number] - [id number] - [id number] Implanted:Qty: 1 on 02/13/2015 by Clayton Lee MD [place] [facility] [place] Aorta [employer] : VASCULAR 12/02/2016 [id number] / [id number] / Limb Contralat [id number] - [id number] - [id number] Implanted:Qty: 1 on 02/13/2015 by Clayton Lee MD at [place] [facility] [place] [facility]orta [employer] : VASCULAR 11/19/2016 [id number] / [id number] / Limb Contralat [id number] - [id number] - [id number] Implanted:Qty: 1 on 02/13/2015 by Clayton Lee MD at [place] [facility] [place] Aorta [employer] : VASCULAR [id number] / [id number] / Plug Vasc Ampl 16mm 9-Plug-016 - [id number] Implanted:Qty: 1 on 02/13/2015 by Clayton Lee MD at [place] [facility] [place] Aorta Picreel 9-PLUG-0 16 / / documented as of [...] (HCC) Primary hypercoagulable state 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 Mixed dyslipidemia Mixed hyperlipidemia History of endovascular stent graft for abdominal aortic aneurysm Blood vessel replaced by other means Pre-op testing Preoperative examination, unspecified Gouty arthropathy Gouty arthropathy, unspecified 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) Aortic root dilatation (HCC) 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), stage II Chronic kidney disease, Stage II (mild) 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) Primary hypercoagulable state 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 Care Teams Belt Builder Helper Relationship Specialty Start Date End Date Fran Peres MD [address] [place] [address] [place] [address] PCP - General Family Medicine 12/13/23 documented as of this encounter
--- OUTSIDE RECORDS SUMMARY | 2025-01-15 05:13 | External Medical Summary ---
Author Name Unknown Address Unknown Organization [id number]:LABORATORY [facility] [place] - [facility] [address] [place] [address] Laboratory Report Ordering Provider Test Date Status SYD JACKSON 01/06/2025 11:19:55 Final Labs in PACU Observation Date Value Abnormality Reference (Units ) Status WBC, Total 01/06/2025 11:19:55 6.69 4.00-10.80 (K/uL) Final RBC 01/06/2025 11:19:55 4.27 4.50-5.25 (M/uL) Final Hemoglobin 01/06/2025 11:19:55 14.0 14.0-16.8 (g/dL) Final HCT 01/06/2025 11:19:55 42.1 40.0-48.4 (%) Final MCV 01/06/2025 11:19:55 98.6 82.0-99.5 (fL) Final MCH 01/06/2025 11:19:55 32.8 27.0-34.0 (pg) Final MCHC 01/06/2025 11:19:55 33.3 32.0-36.0 (g/dL) Final RDW 01/06/2025 11:19:55 14.2 11.5-15.5 (%) Final Platelets 01/06/2025 11:19:55 153 140-400 (K/uL) Final MPV 01/06/2025 11:19:55 9.3 6.6-11.1 (fL) Final Nucleated erythrocytes/100 leukocytes [Ratio] in Blood by Automated count 01/06/2025 11:19:55 0 <=0 (/100 WBCs) Final Performing Location LABORATORY [facility] - [address] [facility] [place] [address]
--- OUTSIDE RECORDS SUMMARY | 2025-01-15 05:13 | External Medical Summary ---
Author Name Unknown Address Unknown Organization K01:LABORATORY [facility] [place] - [address] [place] [address] Laboratory Report Ordering Provider Test Date Status BENJAOLEKSANDRRICHELLE RUIZDIPIKA 12/25/2024 08:51:00 Ivonne l Observation Date Value Abnormality Reference (Units ) Status HbA1C 12/25/2024 08:51:00 5.3 4.0-5.6 (% ) Final The use of HbA1c to monitor glycemic status is based on normal hemoglobin and HbA composition. This test should not be used in patients with abnormal hemoglobin that affects the half life of the red blood cell or the in vivo glycation rates. Glucose, estimated average 12/25/2024 08:51:00 105 <126 (mg/dL) Final Performing Location LABORATORY [facility] [place] - [address] [place] [address]
--- OUTSIDE RECORDS SUMMARY | 2025-01-15 05:13 | External Medical Summary ---
Author Name Unknown Address Unknown Organization [id number]:[place]ATORY [facility] [place] [address] [facility] [place] [address] Laboratory Report Ordering Provider Test Date Status JANAK ACUNA 12/25/2024 08:51:00 Ivonne l Observation Date Value Abnormality Reference (Units ) Status SYNC LEUKOCYTES IN BLOOD BY AUTOMATED COUNT 12/25/2024 08:51:00 6.91 4.00-10.80 (K/uL) Final Segs 12/25/2024 08:51:00 65.2 40.0-75.0 (%) Final Lymphs % 12/25/2024 08:51:00 22.0 18.0-42.0 (%) Final Monos 12/25/2024 08:51:00 10.7 1.0-11.0 (%) Final Eosinophils 12/25/2024 08:51:00 1.4 0.0-6.0 (%) Final Basos 12/25/2024 08:51:00 0.6 0.0-2.0 (%) Final Immature Granulocyte, Percent 12/25/2024 08:51:00 0.1 0.0-2.0 (%) Final Absolute Segs 12/25/2024 08:51:00 4.50 1.80-7.70 (K/uL) Final Lymphs, absolute 12/25/2024 08:51:00 1.52 1.00-4.80 (K/ul) Final Monos, Abs 12/25/2024 08:51:00 0.74 0.00-1.10 (K/uL) Final Eos, Abs 12/25/2024 08:51:00 0.10 0.00-0.70 (K/uL) Final Basos, Abs 12/25/2024 08:51:00 0.04 0.00-0.20 (K/uL) Final Immature Granulocytes, Number 12/25/2024 08:51:00 0.01 0.00-0.20 (K/uL) Final Performing Location LABORATORY [facility] [place] [address] [facility] [address]
--- OUTSIDE RECORDS SUMMARY | 2025-01-15 05:13 | External Medical Summary ---
Author Name Unknown Address Unknown Organization K01:LABORATORY [facility] [place] [place] - [facility] [address] [facility] [address] Laboratory Report Ordering Provider Test Date Status JANAK ACUNA 12/25/2024 08:51:00 Ivonne l Observation Date Value Abnormality Reference (Units ) Status WBC, Total 12/25/2024 08:51:00 6.91 4.00-10.80 (K/uL) Final RBC 12/25/2024 08:51:00 4.97 4.50-5.25 (M/uL) Final Hemoglobin 12/25/2024 08:51:00 16.3 14.0-16.8 (g/dL) Final HCT 12/25/2024 08:51:00 49.8 Above high normal 40.0-48.4 (%) Final MCV 12/25/2024 08:51:00 100.2 82.0-99.5 (fL) Final MCH 12/25/2024 08:51:00 32.8 27.0-34.0 (pg) Final MCHC 12/25/2024 08:51:00 32.7 32.0-36.0 (g/dL) Final RDW 12/25/2024 08:51:00 14.3 11.5-15.5 (%) Final Platelets 12/25/2024 08:51:00 227 140-400 (K/uL) Final MPV 12/25/2024 08:51:00 10.9 6.6-11.1 (fL) Final Nucleated erythrocytes/100 leukocytes [Ratio] in Blood by Automated count 12/25/2024 08:51:00 0 <=0 (/100 WBCs) Final Performing Location LABORATORY [facility] [place] [place] - [address] [place] [address]
--- OUTSIDE RECORDS SUMMARY | 2025-01-15 05:13 | External Medical Summary | Summary of Care ---
Author Name Unknown Organization [facility] Address [address] [place] [address] Phone [phone] Care Team Providers Care Shop Clerk Name Role Phone Fran Peres MD Primary Care Provide r Reason for Visit * Reason Comments Medication Refill Encounter Details Date Type Department Care Team (Late st Contact Info) Description 01/02/2025 Refill Family Medicine [address] [phone] Fran Peres MD [address] [place] [address] [place] [address] Atherosclerosis of [place] coronary artery of [place] heart without angina pectoris Allergies No known active allergiesdocumented as of [...] Oral Tablet (pLAVix)Indicatio ns:Factor V Leiden mutation ([facility]),Iliac artery thrombosis, left (HCC),Infrarenal abdominal [...] ons: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),Homozygous MTHFR mutation [id number],Hx pulmonary embolism Take 1 Tablet by mouth [...] 5 11:45 AM EDT 12/11/19 25 Active Metoprolol Succinate ER 25 MG Oral Tablet Extended Release 24 Hour (toPROL XL)Indications:At herosclerosis of [place] coronary artery of [place] heart without angina pectoris Take one-half tablet [...] Release 24 Hour (toPROL XL)Indications:At herosclerosis of [place] coronary artery of [place] heart without angina pectoris Take 0.5 Tablets [...] 0 03/04/2019 Actinic keratosis 12/12/2018 Atherosclerosis of [place] 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[place] heart without angina pectoris 04/19/2018 Abdominal aortic aneurysm without rupture 2015 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 09/14/2015 Factor V Leiden mutation 12/30/2013 Overview [...] Notes * Telephone Encounter - Caridad Baker RP - 01/03/2025 1:45 PM EDT Refused Prescriptions: Disp Refills Metoprolol Succinate ER 25 MG Oral Tablet *100 Ta*1 Sig: TAKE 1TABLET BY MOUTH EVERY EVENINGRefused By: CARIDAD BAKER for Refusal: Dose needs clarific ation * Telephone Encounter - Caridad Baker RPh - 01/03/2025 1:44 PM EDT Dose adj listed as historical by PCP on 12/10 with OV note "Pt is doing well but BP is still on the low normal range - therefore dereased the metoprool to 12.5mg daily - clinic visit in 2 weeks" 12/25/24 OV "BP has been well with lower dose of metoprolol " documented in this encounter Plan of Treatment Upcoming Encounters Date Type Department Care Team (Late st Contact Info) Description 01/06/2025 7:15 AM EDT Hospital Encounter [place] [facility] [facility] [place]AL[place] BARRAZA [address] [place] [address] Walt Raphael MD [address] [place] [facility] [place] [address] 01/06/2025 7:15 AM EDT - 01/06/2025 10:05 AM EDT Surgery [place] [facility] [place] [facility] [place] [facility] [address] [place] [phone] Walt Raphael MD [address] [place] [address] ENDOVASCULAR REPAIR [employer] RADIOLOGY SUPERVISION & INTERPRETATION ONE ENDOPROSTHESIS 01/22/2025 9:15 AM EDT Imaging Radiology [facility] [address] [place] [phone] 01/29/2025 10:30 AM EDT Office Visit Vascular Surgery, [facility] [address] [place] [phone] Walt Raphael MD [address] [place] [address] 02/26/2025 11:45 AM EDT Office Visit Ophthalmology, [facility] [address] [place] [address] Mau Deleon DO [address] [place] [address] 07/28/2025 11:20 AM EST Office Visit Family Medicine [address] [place] [phone] Britney Vasquez MD [address] [place] [address] [place] [phone] 08/12/2025 9:30 AM EST Office Visit Cardiology [address] [place] [address] Jesus Alberto Montiel PAZeeC [address] [place] [address] Scheduled Procedures Name Priority Associated Diagnoses Date/Ti me ENDOVASCULAR REPAIR [employer] 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) Aortic root dilatation (HCC) CKD (chronic kidney disease), 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) 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 Mixed dyslipidemia History of endovascular stent graft for abdominal aortic aneurysm 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) Pre-op testing 01/06/2025 7:15 AM EDT Health Maintenance Due Date Last Done Comments DISCUSS TOBACCO CESSATION (REFER TO SMARTSET #0048) 1935 Alpha-1 Antitrypsin 11/23/1953 Depression Monitoring 04/23/2021 [...] Medical Devices Implanted Type Area Director Of Staff Development Device Identifier Shelf Expiration Date Model / Serial / Lot Graft Aaa Bif [id number] - [id number] - [id number] Implanted:Qty: 1 on 02/13/2015 by Clayton Lee MD [place] [facility] Aorta [employer] : VASCULAR 12/02/2016 [id number] / [id number] / Limb Contralat [id number] - [id number] - [id number] Implanted:Qty: 1 on 02/13/2015 by Clayton Lee MD at [place] [facility] Aorta [employer] : VASCULAR 11/19/2016 [id number] / [id number] / Limb Contralat [id number] - [id number] - [id number] Implanted:Qty: 1 on 02/13/2015 by Clayton Lee MD at [place] [facility] Aorta [employer] : VASCULAR [id number] / [id number] / Plug Vasc Ampl 16mm 9-Plug-016 - [id number] Implanted:Qty: 1 on 02/13/2015 by Clayton Lee MD at [place] [facility] Aorta [employer] TREVON 9-PLUG-0 16 / / documented as [...] V Leiden mutation (HCC) Primary hypercoagulable state 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 Mixed dyslipidemia Mixed hyperlipidemia History of endovascular stent graft for abdominal aortic aneurysm Blood vessel replaced by other means Pre-op testing Preoperative examination, unspecified 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 Care Teams Shop Clerk Relationship Specialty Start Date End Date Fran Peres MD [address] [place] [address] [place] [address] PCP - General Family Medicine 12/13/23 documented as of this encounter
--- OUTSIDE RECORDS SUMMARY | 2025-01-15 05:13 | External Medical Summary ---
Author Name Unknown Address Unknown Organization K01:[place] [facility] [place] [address] [place] [address] Laboratory Report Ordering Provider Test Date Status JANAK ACUNA 12/25/2024 08:51:00 Ivonne l Observation Date Value Abnormality Reference (Units ) Status BUN 12/25/2024 08:51:00 13 6-20 (mg/dL) Final Creatinine 12/25/2024 08:51:00 0.9 0.6-1.2 (mg/dL) Final Glomerular filtration rate/1.73 sq M.predicted [Volume Rate/Area] in Serum, Plasma or Blood by Creatinine-based formula (CKD-EPI) 12/25/2024 08:51:00 83 >=60 (mL/min) Final eGFR is calculated based on the CKD-EPI 2020 equation. Sodium 12/25/2024 08:51:00 141 135-146 (m mol/L) Final Potassium 12/25/2024 08:51:00 4.4 3.5-5.1 (m mol/L) Final Cl 12/25/2024 08:51:00 103 98-107 (mm ol/L) Final CO2 12/25/2024 08:51:00 26 22-32 (mmo l/L) Final Anion gap 12/25/2024 08:51:00 12 7-15 (mmol /L) Final Glucose 12/25/2024 08:51:00 98 70-120 (mg /dL) Final Calcium 12/25/2024 08:51:00 9.9 8.4-10.2 ( mg/dL) Final Performing Location [place] [facility] [place] [address] [facility] [place] [address]
--- OUTSIDE RECORDS SUMMARY | 2025-01-15 05:13 | External Medical Summary ---
Author Name Unknown Address Unknown Organization K01:LABORATORY [facility] [place] - [address] [place] [address] Laboratory Report Ordering Provider Test Date Status SYD JACKSON 01/07/2025 05:12:00 Final Observation Date Value Abnormality Reference (Units ) Status BUN 01/07/2025 05:12:00 9 6-20 (mg/dL) Final Creatinine 01/07/2025 05:12:00 0.9 0.6-1.2 (mg/dL) Final Glomerular filtration rate/1.73 sq M.predicted [Volume Rate/Area] in Serum, Plasma or Blood by Creatinine-based formula (CKD-EPI) 01/07/2025 05:12:00 84 >=60 (mL/min) Final eGFR is calculated based on the CKD-EPI 2020 equation. Sodium 01/07/2025 05:12:00 137 135-146 (m mol/L) Final Potassium 01/07/2025 05:12:00 4.0 3.5-5.1 (m mol/L) Final Cl 01/07/2025 05:12:00 102 98-107 (mm ol/L) Final CO2 01/07/2025 05:12:00 25 22-32 (mmo l/L) Final Anion gap 01/07/2025 05:12:00 10 7-15 (mmol /L) Final Glucose 01/07/2025 05:12:00 97 70-120 (mg /dL) Final Calcium 01/07/2025 05:12:00 8.5 8.4-10.2 ( mg/dL) Final Performing Location LABORATORY [facility] [place] - [address] [place] [address]
--- OUTSIDE RECORDS SUMMARY | 2025-01-15 05:13 | External Medical Summary ---
Author Name Unknown Address Unknown Organization : Laboratory Report Ordering Provider Test Date Status HARPREET MANZANO 01/06/2025 10:03:09 Final NORMAL (NON-HEPARINIZED) 74- 137 SECONDS
HEPARINIZED � � � � � � � � � 200+ � SECONDS
CRITICAL GREATER THAN � � 1000 � SECONDS
null Observation Date Value Abnormality Reference (Units ) Status Kaolin activated time [Units/volume] in Blood 01/06/2025 10:03:09 199 50-1000 (secs) Final Performing Location
--- OUTSIDE RECORDS SUMMARY | 2025-01-15 05:13 | External Medical Summary ---
Author Name Unknown Address Unknown Organization K01:LABORATORY [facility] [place] [address] [place] [address] Laboratory Report Ordering Provider Test Date Status MANUELSYD 01/06/2025 11:19:55 Final Labs in PACU Observation Date Value Abnormality Reference (Units ) Status BUN 01/06/2025 11:19:55 10 6-20 (mg/dL) Final Creatinine 01/06/2025 11:19:55 0.8 0.6-1.2 (mg/dL) Final Glomerular filtration rate/1.73 sq M.predicted [Volume Rate/Area] in Serum, Plasma or Blood by Creatinine-based formula (CKD-EPI) 01/06/2025 11:19:55 85 >=60 (mL/min) Final eGFR is calculated based on the CKD-EPI 2020 equation. Sodium 01/06/2025 11:19:55 139 135-146 (m mol/L) Final Potassium 01/06/2025 11:19:55 3.9 3.5-5.1 (m mol/L) Final Cl 01/06/2025 11:19:55 104 98-107 (mm ol/L) Final CO2 01/06/2025 11:19:55 23 22-32 (mmo l/L) Final Anion gap 01/06/2025 11:19:55 12 7-15 (mmol /L) Final Glucose 01/06/2025 11:19:55 110 70-120 (mg /dL) Final Calcium 01/06/2025 11:19:55 8.7 8.4-10.2 ( mg/dL) Final Performing Location LAB[facility]ATORY [facility] [place] [address] [place] [address]
--- OUTSIDE RECORDS SUMMARY | 2025-01-15 05:13 | External Medical Summary ---
Author Name Unknown Address Unknown Organization K01:LABORATORY [facility] [place] - [address] [facility] [place] [address] Laboratory Report Ordering Provider Test Date Status JANAK ACUNA 12/25/2024 08:51:00 Ivonne l Observation Date Value Abnormality Reference (Units ) Status Triglyceride 12/25/2024 08:51:00 93 <=174 ( mg/dL) Final Triglyceride Reference Range s (mg/dL):
<150 Acceptable
150-174 Borderline high
175-499 High
>=500 Very high Cholesterol 12/25/2024 08:51:00 160 <200 (mg /dL) Final Total Cholesterol Reference Ranges (mg/dL):
<200 Desirable
200-239 Borderline high
>=240 High HDL 12/25/2024 08:51:00 83 >39 (mg/dL ) Final HDL Cholesterol Reference Ra nges (mg/dL):
>=60 High (Desirable)
<50 Low (Undesirable) For Females
<40 Low (Undesirable) For Males NON-HDL CHOLESTEROL 12/25/2024 08:51:00 77 <=159 (mg/dL) Final Non-HDL Cholesterol Referenc e Range (mg/dL):
<100 Target level for high risk ASCVD patient
<130 Optimal for general population
130-159 Near optimal for general population
160-189 Borderline High
190-219 High
>=220 Very High LDL, (calculated) 12/25/2024 08:51:00 58 <= 129 (mg/dL) Final LDL Cholesterol Reference Ra nges (mg/dL):
<70 Target level for high risk ASCVD patient
<100 Optimal for general population
100-129 Near optimal for general population
130-159 Borderline high
160-189 High
>=190 Very high
Patient has high LDL cholesterol. Consider screening for Familial Hypercholesterolemia. Performing Location LABORATORY [facility] [place] - [address] [facility] [address]
--- OUTSIDE RECORDS SUMMARY | 2025-01-15 05:13 | External Medical Summary ---
Author Name Unknown Address Unknown Organization K01:LABORATORY [facility] [place] [facility] - [address] [place] [address] Laboratory Report Ordering Provider Test Date Status YOVANY SCHWARTZ 01/06/2025 06:30:06 Final Observation Date Value Abnormality Reference (Units ) Status ABO 01/06/2025 06:30:06 A Final RH 01/06/2025 06:30:06 Positive Final RED BLOOD CELL ANTIBODY SCREEN 01/06/2025 06:30:06 Negative Final SPECIMEN EXPIRATION DATE 01/06/2025 06:30:06 01/09/2025 23:59 Final Performing Location LABORATORY [facility] [place] [facility] - [address] [place] [address]
--- OUTSIDE RECORDS SUMMARY | 2025-01-15 05:13 | External Medical Summary | Summary of Care ---
Author Name Unknown Organization [facility] Address [address] [facility] [place] [address] Phone [phone] Care Team Providers Care Automatic Silk Screen Printer Name Role Phone Fran Peres MD Primary Care Provide r Reason for Visit * Reason Comments Outpatient Testing Encounter Details Date Type Department Care Team (Late st Contact Info) Description 12/25/2024 8:40 AM EDT Laboratory Laboratory [address] [place] [phone] [place] [address] Arrived Allergies No known active allergiesdocumented as of [...] Solution (Duoneb)Indicatio ns:COPD, 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 determined ([facility]) Inhale 3 mL by mouth [...] ons: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),Homozygous MTHFR mutation [id number],Hx pulmonary embolism Take 1 Tablet by mouth [...] Release 24 Hour (toPROL XL)Indications:At herosclerosis of [place] coronary artery of [place] heart without angina pectoris Take 0.5 Tablets by mouth in the morning. 5 Active Pantoprazole Sodium 40 MG Oral Tablet Delayed Release (Protonix)Indicat ions:Abdominal pain, epigastric Take 1 Tablet by mouth in the morning. 30 minutes before the first meal of the day. Do not crush, split or chew the tablet. 90 Tablet 1 12/12/2024 11:45 AM EDT Active Hospital, Clinic, or Other Facility Administered [...] 07/16/2020 Primary 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 of both knees 08/01/2019 group home current use of 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 0 03/04/2019 Actinic keratosis 12/12/2018 Atherosclerosis of [place] 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[place] heart without angina pectoris 04/19/2018 Abdominal aortic aneurysm without rupture 2015 Homozygous MTHFR mutation [id number] 09/14/2015 Factor V Leiden mutation 12/30/2013 Overview [...] pulmonary artery 12/23/2013 04/19/2018 Overview (12/25/2013): Admitted [place] Encounter for examination fo r normal comparison [...] EDT Hospital Encounter [facility] [address] [place] [facility] [place] [phone] Walt Raphael MD [address] [place] [facility] [place] [address] 01/06/2025 7:15 AM EDT - 01/06/2025 10:25 AM EDT Surgery [place] [facility] [address] [place] [facility] [place] [phone] Walt Raphael MD [address] [place], [place] [id number] ENDOVASCULAR REPAIR [employer] RADIOLOGY SUPERVISION & INTERPRETATION ONE ENDOPROSTHESIS 01/22/2025 9:15 AM EDT Imaging Radiology [address] [place] [phone] 01/29/2025 10:30 AM EDT Office Visit Vascular Surgery, [facility] [address] [place] [address] Walt Raphael MD [address] [place], [place] [id number] 02/26/2025 11:45 AM EDT Office Visit Ophthalmology, [facility] [address] [place] [address] Mau Deleon, [address] [place] [address] 07/28/2025 11:20 AM EST Office Visit Family Medicine [address] [place] [phone] Britney Vasquez MD [address] [place] [address] [place] [phone] 08/12/2025 9:30 AM EST Office Visit Cardiology [address] [place] [address] Jesus Alberto Montiel PA-Shaun [address] [place] [address] Scheduled Procedures Name Priority Associated Diagnoses Date/Ti me ENDOVASCULAR REPAIR [employer] 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) Aortic root dilatation (HCC) CKD (chronic kidney disease), 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 Mixed dyslipidemia History of endovascular stent graft for abdominal aortic aneurysm 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) Pre-op testing 01/06/2025 7:15 AM EDT Health Maintenance Due Date Last Done Comments DISCUSS TOBACCO CESSATION (REFER TO SMARTSET #3295) 1937 Depression Monitoring 1949 Alpha-1 Antitrypsin 11/23/1955 [...] this encounter Medical Devices Implanted Type Area Editorial Director Device Identifier Shelf Expiration Date Model / Serial / Lot Graft Aaa Bif [id number] - [id number] - [id number] Implanted:Qty: 1 on 02/13/2015 by Clayton Lee MD [place] [facility] Aorta [employer] : VASCULAR 12/02/2016 [id number] / [id number] / Limb Contralat [id number] - [id number] - [id number] Implanted:Qty: 1 on 02/13/2015 by Clayton Lee MD [place] [facility] [place]orta [employer] : VASCULAR 11/19/2016 [id number] / [id number] / Limb Contralat [id number] - [id number] - [id number] Implanted:Qty: 1 on 02/13/2015 by Clayton Lee MD [place] [facility] Aorta [employer] : VASCULAR [id number] / [id number] / Plug Vasc Ampl 16mm 9-Plug-016 - [id number] Implanted:Qty: 1 on 02/13/2015 by Clayton Lee MD [place] [facility] Aorta [employer] TREVON 9-PLUG-0 16 / / documented [...] and were consensually agreed upon. Care Teams Automatic Silk Screen Printer Relationship Specialty Start Date End Date Fran Peres MD [address] [place] [address] [place] [address] PCP - General Family Medicine 12/13/23 documented as of this encounter
--- OUTSIDE RECORDS SUMMARY | 2025-01-15 05:14 | External Medical Summary | Summary of Care ---
Author Name Unknown Organization [facility] Address [address] [facility] [place] [address] Phone [phone] Care Team Providers Care Mail Handler Equipment Operator Name Role Phone Fran Peres MD Primary Care Provide r Reason for Visit * Reason Onset Date Comments Hospital Follow-Up Hospital Follow-Up 12/10/2024 Encounter Details Date Type Department Care Team (Late st Contact Info) Description 12/10/2024 9:00 AM EDT Office Visit Family Medicine [address] [place] [phone] Fran Peres MD [address] [place] [address] [place] [address] Hospital discharge follow-up*; Atherosclerosis of [place] coronary artery of [place] heart without angina pectoris; Abdominal pain, epigastric; Hypotension, unspecified hypotension type; Alcohol use Allergies No known active allergiesdocumented as of this encounter (statuses as of 12/10/2024) Medications Cyanocobalamin (VITAMIN B-12) 6000 MCG SUBL [...] ons: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),Homozygous MTHFR mutation [id number],Hx pulmonary embolism Take 1 Tablet by mouth [...] 5 2:08 PM EDT 11/27/19 25 Active Metoprolol Succinate ER 25 MG Oral Tablet Extended Release 24 Hour (toPROL XL)Indications:At herosclerosis of [place] coronary artery of [place] heart without angina pectoris Take 0.5 Tablets by mouth in the morning. 12/11/19 25 Active Pantoprazole Sodium 40 MG Oral Tablet Delayed Release (Protonix)Indicat ions:Abdominal pain, epigastric Take 1 Tablet by mouth in the morning. 30 minutes before the first meal of the day. Do not crush, split or chew the tablet. 90 Tablet 1 12/11/19 25 Active Metoprolol Succinate ER 25 MG Oral Tablet Extended Release 24 Hour (toPROL XL)Indications:At herosclerosis of [place] coronary artery of [place] heart without angina pectoris TAKE 1 TABLET BY MOUTH EVERY EVENING 100 Tablet 1 4 10:45 AM EST 06/02/20 24 025 Discontin ued(Refil l) Hospital, Clinic, [...] as of this encounter (statuses as of 12/10/2024) Active Problems Problem Noted Date Diagnosed Date [...] 07/16/2020 Primary 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 of both knees 08/01/2019 shelter current use of 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 0 03/04/2019 Actinic keratosis 12/12/2018 Atherosclerosis of [place] 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[place] heart without angina pectoris 04/19/2018 Abdominal aortic aneurysm without rupture 2015 Homozygous MTHFR mutation 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 09/14/2015 Factor V Leiden mutation 12/30/2013 Overview (12/30/2013): has one copy of Factor V Leiden mutation Mixed dyslipidemia 11/25/2009 GENERAL OSTEOARTHROSIS Tobacco use disorder Exudative age-related macula r degeneration of both eyes with active choroidal neovascularization documented as of this encounter (statuses as of 12/10/2024) Resolved Problems Problem Noted Date Diagnosed Date [...] pulmonary artery 12/23/2013 04/19/2018 Overview (12/25/2013): Admitted [place] Encounter for examination fo r normal comparison [...] as of this encounter (statuses as of 12/10/2024) Immunizations Name Administration Dates Next Due COVID-19 [...] Sign Reading Time Taken Comments Blood Pressure 104/70 12/10/2024 8:29 AM EDT Pulse - - Temperature 35.9 °C (96.6 °F) 12/10/2024 8:29 AM ED T Respiratory Rate - - Oxygen Saturation 97% 12/10/2024 8:29 AM EDT Inhaled Oxygen Concentration - - Weight 103.1 kg (227 lb 3.2 oz) 12/10/2024 8:29 AM EDT Height - - Body Mass Index 27.66 10/23/2024 9:53 AM EST documented in this encounter Progress Notes * Fran Peres MD - 12/10/2024 8:40 AM EDT Subjective: HPI: Jeff Powers is a 89 year old male with hx of HLD, AAA, CKD II-III, factor V leiden mutation, hx of PE on coumadin, DJD, coronary artery calcification, R internal iliac embolization s/p AmplatzerVascular Plug3 and repair of AAA/DONIS aneurysms with Medtronic Endurant device, emphysema with chronic hx of smoking seen for Pt was admitted to the hospital from 12/03-12/04 1.asymptomatic hypotension - BP improved with IVF - CBC and BMP were unremarkable - metoprolol was put on hold on discharge Today: - per they restarted the metoprolol 2 days ago - pt is doing well - denied any dizziness or FREDERICK or syncope - pt continues to drink vodka every day and finish the whole bottle every 5 days - having mild epigastric discomfort --- denied any N/V or dysphagia - helps with the all the med Patient Active Problem List Diagnosis GENERAL OSTEOARTHROSIS Tobacco use disorder Mixed dyslipidemia 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) Homozygous MTHFR mutation [id number] Abdominal aortic aneurysm without rupture (HCC) BMI 26.0-26.9,adult 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 Cholecalciferol (VITAMIN D) 2000 UNITS Capsule Take 1 Capsule by mouth in the morning. Clopidogrel Bisulfate 75 MG Oral Tablet (pLAVix) [...] mouth in the morning. 90 Tablet 1 busPIRone HCl 10 MG Oral Tablet (Buspar) [...] or chew the tablet. 90 Tablet 1 Cyanocobalamin (VITAMIN B-12) [address] 1 Tablet under the tongue every morning. folic acid 1 MG Tablet Take 1 Tablet by mouth every other day. Garlic 500 MG CAPS Take 1 Cap by mouth every other day. Multiple Vitamins-Minerals (MULTIVITAMIN ADULT) TABS Take by mouth. Multiple Vitamins-Minerals (PRESERVISION AREDS 2) Capsule Take [...] mouth in the morning. 50 Tablet 3 Loratadine 10 MG Oral Tablet (Claritin) Take 1 Tablet by mouth in the morning. 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 [facility] Internal hemorrhoids 07/24/2007 Macular degeneration (senile) of retina 06/26/2014 Nonexudative age-related macular degeneration, bilateral, intermediate dry stage Other seborrheic keratosis 06/17/2002 maulik-surgical removal under local anesthesia Saddle embolus of pulmonary artery ([facility]) 12/23/2013 Admitted [place] Tobacco use disorder Vitamin D deficiency 11/25/2009 Vitamin D 18.8 Past Surgical History: Procedure Laterality Date ANKLE-BRACHIAL INDEX (CARDIOLOGY) Bilateral 04/25/2019 1.1 on left and right, normal CATHETERIZE LEFT HEART THRU SKIN 1984 Cardiac Catheterization, Left Heart COLONOSCOPY, OUTSIDE PROCEDURE 07/24/2007 Dr Chaudhari, minimal diverticular disease of sigmoid and modest internal hemorrhoids CT CARDIAC COMPLETE 12/23/2013 large nonocclusive pulmonary saddle embolus ECHO, COMPLETE (2D), TRANS-THORACIC 12/23/2013 EF 60% ENDOVASC ABDO REPR W/BI DEVICE 02/13/2015 [facility] ENDOVASC ABDO REPR W/BI DEVICE N/A 02/13/2015 Repair of aorta and iliac aneurysms with Medtronic Endurant device (Main body: 707, Right iliac limb extension: , Left iliac limb ) by Dr. Lee. FEM/POP ARTERY REVASC W/ STENT+ANGIOPLASTY Left 09/22/2015 FEM/POP ARTERY REVASC W/ STENT+ANGIOPLASTY performed by Clayton Lee MD at [facility] INJECTION OF EYE DRUG Right 07/05/2017 [...] performed by Clayton Lee MD at [place] [facility] IR EMBOLIZATION ARTERIAL NON HEMMORHAGE Right 02/13/2015 right iliac IR EMBOLIZATION ARTERIAL NON HEMMORHAGE Right 02/13/2015 Embolization of right internal iliac artery with 16 mm Amplatzer Vascular Plug by Dr. Lee. IR FILTER REMOVAL VENA CAVA 01/27/2014 IR PLACEMENT IVC FILTER 12/23/2013 [facility]ATION/BIOPSY OF TEMPORAL ARTERY Bilateral 09/28/2018 no vasculitis seen MISCELLANEOUS ORDER ([facility] ONLY) Bilateral 07/05/17-07/05/18 EYLEA OU CONSENT SIGNED, Dr. Deleon MISCELLANEOUS ORDER ([facility] ONLY) Bilateral 07/17/2018-07/17/2019 EYLEA CONSENT OU SIGNED; DR DELEON MISCELLANEOUS ORDER ([facility] ONLY) Bilateral 07/25/2019-07/25/2020 EYLEA CONSENT OU SIGNED; DR DELEON MISCELLANEOUS ORDER ([facility] ONLY) ACT 112 signed, 11/14/2019 OTHER [...] performed by Clayton Lee MD at [place] [facility] US AAA SCREEN, VASCULAR LAB N/A 10/05/2016 [...] Vaping/E-Cigarette Devices ROS: -Per HPI OBJECTIVE: BP 104/70 | Temp 96.6 °F (35.9 °C) | Wt 227 lb 3.2 oz (103.1 kg) | SpO2 97% | BMI 27.66 kg/m² | BSA 2.35 m² PHYSICAL EXAM: Vitals are reviewed General:. NAD, well developed HEENT:. Normal Conjunctiva, EOMI Cardiac:. Normal S1, S2, no murmur Lungs:. CTA, no wheezing or crackles Abd:. soft, ND, mild discomfort to palpation of the epigastric area MSK:. Normal gait Psych:. AAOx3, normal affect ASSESSMENT/PLAN: Pt is doing well but BP is still on the low normal range - therefore dereased the metoprool to 12.5mg daily - clinic visit in 2 weeks Discussed stopping ETOH use Hospital discharge follow-up (Primary) - DISCH MED RECON CUR MED LIS Atherosclerosis of [place] coronary artery of [place] heart without angina pectoris Abdominal pain, epigastric - Pantoprazole Sodium 40 MG Oral Tablet Delayed Release (Protonix); Take 1 Tablet by mouth in the morning. 30 minutes before the first meal of the day. Do not crush, split or chew the tablet. Hypotension, unspecified hypotension type Alcohol use I spent a total of 40-54 minutes (exact time 43 mins) on the date of service in preparation, delivery, and documentation of the care provided to Jeff Powers excluding any time spent in the performance of separately billed services or time spent by another provider/QHP. Fran Peres MD Family medicine, [address] [address] documented in this encounter Nursing Notes * Maria Fernanda Kulkarni CMA - 12/10/2024 8:24 AM EDT He is here for a follow up from [facility]. documented in this encounter Plan of Treatment Upcoming Encounters Date Type Department Care Team (Late st Contact Info) Description 12/23/2024 11:45 AM EDT Office Visit Ophthalmology, [facility] [address] [place] [phone] Mau Deleon, [address] [place] [address] 12/25/2024 8:40 AM EDT Office Visit Family Medicine [address] [phone] Fran Peres MD [address] [place] [address] [place] [address] 01/06/2025 7:15 AM EDT Hospital Encounter [facility], OPERATING ROOM [facility] [facility] [address] [place] [phone] Walt Raphael MD [address] [place] [facility] [address] 01/06/2025 7:15 AM EDT - 01/06/2025 10:25 AM EDT Surgery OR [facility], OPERATING ROOM [facility] [address] [place] [facility] [phone] Walt Raphael MD [address] [place] [facility] [place] [address] ENDOVASCULAR REPAIR [employer] RADIOLOGY SUPERVISION & INTERPRETATION ONE ENDOPROSTHESIS 01/22/2025 9:15 AM EDT Imaging Radiology [address] [place] [phone] 01/29/2025 10:30 AM EDT Office Visit Vascular Surgery, [facility] [address] [place] [phone] Walt Raphael MD [address] [place] [facility] [place] [address] 08/12/2025 9:30 AM EST Office Visit Cardiology [address] [place] [address] Jesus Alberto Montiel PA-C [address] [place] [address] Scheduled Procedures Name Priority Associated Diagnoses Date/Ti ks ENDOVASCULAR REPAIR [employer] 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) Pre-op testing 01/06/2025 7:15 AM EDT OPEN BRACHIAL ARTERY EXPOSURE FOR ENDOVASCULAR PROSTHESIS 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) Aortic root dilatation (HCC) CKD (chronic kidney disease), 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) shelter current use of 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 Mixed dyslipidemia History of endovascular stent graft for abdominal aortic aneurysm 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) Pre-op testing 01/06/2025 7:15 AM EDT Health Maintenance Due Date Last Done Comments DISCUSS TOBACCO CESSATION (REFER TO SMARTSET #0674) 1935 Depression Screening 1947 Alpha-1 Antitrypsin 11/23/1955 [...] this encounter Medical Devices Implanted Type Area Muskrat Trapper Device Identifier Shelf Expiration Date Model / Serial / Lot Graft Aaa Bif [id number] - [id number] - [id number] Implanted:Qty: 1 on 02/13/2015 by Clayton Lee MD [place] [facility] Aorta [employer] : VASCULAR 12/02/2016 [id number] / [id number] / Limb Contralat [id number] - [id number] - [id number] Implanted:Qty: 1 on 02/13/2015 by Clayton Lee MD [place] [facility] Aorta [employer] : VASCULAR 11/19/2016 [id number] / [id number] / Limb Contralat [id number] - [id number] - [id number] Implanted:Qty: 1 on 02/13/2015 by Clayton Lee MD [place] [facility] Aorta [employer] : VASCULAR [id number] / [id number] / Plug Vasc Ampl 16mm 9-Plug-016 - [id number] Implanted:Qty: 1 on 02/13/2015 by Clayton Lee MD [place] [facility] Aorta [employer] TREVON 9-PLUG-0 16 / / documented as [...] V Leiden mutation (HCC) Primary hypercoagulable state shelter current use of 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 Mixed dyslipidemia Mixed hyperlipidemia History of endovascular stent graft for abdominal aortic aneurysm Blood vessel replaced by other means Pre-op testing Preoperative examination, unspecified Hospital discharge follow-up- Primary Other follow-up examination Atherosclerosis of [place] coronary artery of [place] heart without angina pectoris Abdominal pain, epigastric Hypotension, unspecified hypotension type Alcohol use 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) Aortic root dilatation (HCC) 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), stage II Chronic kidney disease, Stage II (mild) 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) Primary hypercoagulable state shelter current use of 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 Mixed dyslipidemia [...] and were consensually agreed upon. Care Teams Mail Handler Equipment Operator Relationship Specialty Start Date End Date Fran Peres MD [address] [place] [address] [place] [phone] PCP - General Family Medicine 12/13/23 documented as of this encounter"
--- OUTSIDE RECORDS SUMMARY | 2025-01-15 05:14 | External Medical Summary | Summary of Care ---
Author Name Unknown Organization [facility] Address [address] [facility] [address] Phone [phone] Care Team Providers Care Cyber Transport Systems Specialist Name Role Phone Fran Peres MD Primary Care Provide r Encounter Details Date Type Department Care Team (Late st Contact Info) Description 12/11/2024 Orders Only Family Medicine [address] [place] [phone] Fran Peres MD [address] [place] [address] [place] [phone] Allergies No known active allergiesdocumented as of this encounter (statuses as of 12/11/2024) Medications Cyanocobalamin (VITAMIN B-12) 6000 MCG SUBL [...] Solution (Duoneb)Indicatio ns:COPD, 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 determined ([facility]) Inhale 3 mL by mouth every [...] ons: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),Homozygous MTHFR mutation [id number],Hx pulmonary embolism Take 1 Tablet by mouth [...] Release 24 Hour (toPROL XL)Indications:At herosclerosis of [place] coronary artery of [place] heart without angina pectoris Take 0.5 Tablets by mouth in the morning. 5 Active Pantoprazole Sodium 40 MG Oral Tablet Delayed Release (Protonix)Indicat ions:Abdominal pain, epigastric Take 1 Tablet by mouth in the morning. 30 minutes before the first meal of the day. Do not crush, split or chew the tablet. 90 Tablet 1 Active Hospital, Clinic, or Other Facility Administered [...] as of this encounter (statuses as of 12/11/2024) Active Problems Problem Noted Date Diagnosed Date [...] 07/16/2020 Primary 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 of both knees 08/01/2019 [employer] current use of 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 0 03/04/2019 Actinic keratosis 12/12/2018 Atherosclerosis of [place] 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[place] heart without angina pectoris 04/19/2018 Abdominal aortic aneurysm without rupture 2015 Homozygous MTHFR mutation [id number] 09/14/2015 Factor V Leiden mutation 12/30/2013 Overview (12/30/2013): has one copy of Factor V Leiden mutation Mixed dyslipidemia 11/25/2009 GENERAL OSTEOARTHROSIS Tobacco use disorder Exudative age-related macula r degeneration of both eyes with active choroidal neovascularization documented as of this encounter (statuses as of 12/11/2024) Resolved Problems Problem Noted Date Diagnosed Date [...] as of this encounter (statuses as of 12/11/2024) Immunizations Name Administration Dates Next Due COVID-19 [...] 12/23/2024 11:45 AM EDT Office Visit Ophthalmology, [facility] [address] [place] [phone] Mau Deleon, [address] [place] [phone] 12/25/2024 8:40 AM EDT Office Visit Family Medicine [address] [place] [phone] Fran Peres MD [address] [place] [address] [place] [phone] 01/06/2025 7:15 AM EDT Hospital Encounter OR [facility], OPERATING ROOM [facility], [facility] [address] [place] [phone] Walt Raphael MD [address], [place] [phone] 01/06/2025 7:15 AM EDT - 01/06/2025 10:25 AM EDT Surgery OR [facility], OPERATING ROOM [facility], [facility] [address] [place] [phone] Walt Raphael MD [address] [place] [address] ENDOVASCULAR REPAIR [facility] RADIOLOGY SUPERVISION & INTERPRETATION ONE ENDOPROSTHESIS 01/22/2025 9:15 AM EDT Imaging Radiology [address] [place] [phone] 01/29/2025 10:30 AM EDT Office Visit Vascular Surgery, [facility] [address] [place] [phone] Walt Raphael MD [address], [place] [phone] 08/12/2025 9:30 AM EST Office Visit Cardiology [address] [place] [phone] Jesus Alberto Montiel PA-C [address] [place] [phone] Scheduled Procedures Name Priority Associated Diagnoses Date/Ti [...] Comments DISCUSS TOBACCO CESSATION (REFER TO SMARTSET #9709) 1935 Depression Screening 1947 Alpha-1 Antitrypsin 11/23/1955 [...] this encounter Medical Devices Implanted Type Area Jewel Corner Brushing Machine Operator Device Identifier Shelf Expiration Date Model / Serial / Lot Graft Aaa Bif [id number] - [id number] - [id number] Implanted:Qty: 1 on 02/13/2015 by Clayton Lee MD at OR [facility] Aorta [employer] : VASCULAR 12/02/2016 [id number] / [id number] / Limb Contralat [id number] - [id number] - [id number] Implanted:Qty: 1 on 02/13/2015 by Clayton Lee MD at OR [facility] Aorta [employer] : VASCULAR 11/19/2016 [id number] / [id number] / Limb Contralat [id number] - [id number] - [id number] Implanted:Qty: 1 on 02/13/2015 by Clayton Lee MD at OR [facility] Aorta [employer] : VASCULAR [id number] / [id number] / Plug Vasc Ampl 16mm [id number] - [id number] Implanted:Qty: 1 on 02/13/2015 by Clayton Lee MD at OR [facility] Aorta Viddler TREVON [id number] / / documented as of this encounter Procedures Procedure Name Priority Date/Time Associated Diagnosis Comments CHEMISTRY-OUTSIDE Routine 12/04/2024 documented in this encounter Results * CHEMISTRY-OUTSIDE (12/04/2024) Not all results display below - see scan for full detail OUTSIDE LAB (SEE SCANNED REPORT) Comment:SCAN INCL:INPT LABS: CBC,BMP CREATININE 0.87 0.6 - 1.4 MG/DL OUTSIDE LAB (SEE SCANNED REPORT) EGFR 83.51 OUTSIDE LA B (SEE SCANNED REPORT) POTASSIUM 3.7 3.5 - 5.1 MMOL/L OUTSIDE LAB (SEE SCANNED REPORT) GLUCOSE 87 70 - 99 MG/DL OUTSIDE LAB (SEE SCANNED REPORT) HOURS FASTING OUTSID E LAB (SEE SCANNED REPORT) TRIGLYCERIDES-OUT SIDE LAB OUTSIDE LAB (SEE SCANNED REPORT) CHOLESTEROL-OUTSI DE LAB OUTSIDE LAB (SEE SCANNED REPORT) HDL-OUTSIDE LAB OUTS JULY LAB (SEE SCANNED REPORT) CHOL/HDL RATIO-OUTSIDE LAB OUTSIDE LA B (SEE SCANNED REPORT) LDL (CALCULATED)-OUTS JULY LAB OUTSIDE LAB (SEE SCANNED REPORT) LDL (DIRECT MEASURE)-OUTSIDE LAB OUTSIDE LAB (SEE SCANNED REPORT) HEMOGLOBIN, G7T-RZQPRLY LAB OUTSIDE LAB (SEE SCANNED REPORT) PHOSPHORUS-OUTSID E LAB OUTSIDE LAB (SEE SCANNED REPORT) PTH-OUTSIDE LAB OUTS JULY LAB (SEE SCANNED REPORT) MICROALBUMIN RATIO-OUTSIDE LAB OUTSIDE LA B (SEE SCANNED REPORT) PROTEIN, UA-OUTSIDE LAB OUTSIDE LAB (SEE SCANNED REPORT) HGB 14.5 14 - 18 G/DL OUTSIDE LAB (SEE SCANNED REPORT) 12/04/2024 us History Per Patient LABORATORY Final Result OUTSIDE LAB (SEE SCANNED REPORT) documented in this encounter Advance Directives * [...] and were consensually agreed upon. Care Teams Cyber Transport Systems Specialist Relationship Specialty Start Date End Date Fran Peres MD [address] [place] [address] [place] [phone] PCP - General Family Medicine 12/13/23 documented as of this encounter
[2025-01-15] MEDS: PANTOprazole 40 MG TAB PO SCH (06:21)
[2025-01-15 06:46] LABS: Basophils # (auto) 0.02 K/uL (0.00-0.20); Basophils % (auto) 0.1 %; Hematocrit (blood only) 42.4 % (42.0-52.0); Hemoglobin 14.6 g/dl (14.0-18.0); Immature Granulocytes # (auto) 0.08 K/uL (0.01-0.20); Immature Granulocytes % (auto) 0.6 %; Lymphocytes # (auto) 0.89 K/uL (1.20-3.40); Lymphocytes % (auto) 6.6 %; Mean Corpuscular Hemoglobin 32.2 pg (25.0-34.0); Mean Corpuscular Hgb Conc 34.4 g/dL (32.0-36.0); Mean Corpuscular Volume 93.6 fL (80.0-100.0); Mean Platelet Volume 9.4 fL (9.4-12.4); Monocytes # (auto) 0.69 K/uL (0.11-0.59); Monocytes % (auto) 5.1 %; Neutrophils # (auto) 11.86 K/uL (1.40-6.50); Neutrophils % (auto) 87.6 %; Platelet Count 223 K/uL (130-400); RDW Coefficient of Variation 13.7 % (11.5-14.5); RDW Standard Deviation 46.8 fL (36.4-46.3); Red Blood Count 4.53 M/uL (4.70-6.10); White Blood Count 13.54 K/ul (4.8-10.8)
[2025-01-15 07:23] LABS: BUN Creatinine Ratio 19.5 (10-20); Calcium 8.9 mg/dl (8.6-10.3)
[2025-01-15] MEDS: predniSONE 20 MG TAB PO SCH (08:56)
[2025-01-15] MEDS: CYANOCOBALAMIN (B-12) 2,500 MCG TABLET SL SCH (08:56)
[2025-01-15] MEDS: LORATADINE 10 MG TAB PO SCH (08:56)
[2025-01-15] MEDS: ISOSORBIDE MONO EXTENDED REL 30 MG TABCR PO SCH (08:57)
[2025-01-15] MEDS: busPIRone 5 MG TAB PO SCH (08:57)
[2025-01-15] MEDS: CEROVITE ADV FORMULA TAB PO SCH (08:57)
[2025-01-15] MEDS: METOPROLOL SUCC 25MG EXT REL TAB PO SCH (08:58)
[2025-01-15] MEDS: allopurinoL 100 MG TAB PO SCH (08:58)
[2025-01-15] MEDS: SERTRALINE HCL 100 MG TABLET PO SCH (08:58)
[2025-01-15] MEDS: CALCIUM CARBONATE 500 MG CHEWABLE TAB PO SCH (08:59)
[2025-01-15] MEDS ORDERED: MULTIVITAMIN TAB PO SCH (09:00)
[2025-01-15] MEDS: COLCHICINE 0.6 MG TAB PO SCH (09:00)
[2025-01-15] MEDS: CHOLECALCIFEROL 25 MCG (1000 UNITS) TAB PO SCH (09:00)
[2025-01-15] MEDS ORDERED: NON-FORMULARY MEDICATION (Vit C,E-Zn-Coppr-Lutein-Zeaxan [Preservision Areds-2] 250-90-40- PO SCH (09:00)
[2025-01-15] MEDS: FOLIC ACID 1 MG TAB PO SCH (09:01)
[2025-01-15] MEDS: FLUTICASONE PROPIONATE NA SPR 16 GM BTL SCH (09:02)
[2025-01-15] MEDS: THIAMINE HCL 100 MG TAB PO SCH (12:01)
--- NOTE | 2025-01-15 13:12 | Hospitalist Progress Note ---
Date of Service January 15, 2025 Assessment & Plan (1) Acute hypoxemic respiratory failure: Plan: Acute hypoxemic respiratory failure Parainfluenza Infection HAP Hemoptysis -Secondary to COPD exacerbation secondary to HCAP -Recent vascular procedure, history of PVD Plan: -continue zosyn, check MRSA swab -sputum culture ordered -continue prednisone -continue inhalers -hold eliquis for another day today -supportive care for parainfluenza Hyperactive Delirium -multifactorial in setting of acute illness, hospital setting, likely mild cognitive impairement, perhaps mild withdrawal Plan: -delirium precautions -avoid anticholinergics #Alcohol Use -risk for alcohol withdrawal Troponin elevation secondary to illness hx CAD GERD, on PPI anxiety/mood disorder, some anxiety during exam Hyperglycemia, hemoglobin A1c of 5.3 from last month ongoing tobacco/alcohol abuse I spent a total of 45 minutes in direct patient care, including [id number] time with the patient and/or family, reviewing medical records, ordering and reviewing diagnostic tests, and coordinating care with other healthcare providers. This time includes: history taking, physical examination, medical decision making, counseling, ECG interpretation, imaging interpretation, lab interpretation, orders, and education, excluding time spent in the performance of separately billed services. Admission and Anticipated Discharge Date Admission Date: January 14, 2025 Subjective Patient seen and examined at bedside. Mr. Powers seems slightly confused this morning. Feels SOB and slightly out of it. Slightly agitated, unable to answer full ROS. Review of Systems Review of Systems: -unable to fully answer ROS due to menta l status Physical Exam Physical Exam: Gen: A&O 1 NAD HEENT: NCAT, EOMI, not icteric. External ears normal. No rhinorrhea. Moist mucous membranes. Neck: Supple, full range of motion, no observable masses, No meningeal sign. Lungs: rhonchi noted in RLL CV: RRR, no edema. Abdomen: Soft, nondistended, No rebound tenderness. MSK: No joint swelling, no redness. Skin: No rashes, petechiae, lesions. Normal color per patient. Neuro: Normal Gait, Grossly intact. Results & Data Results & Data Vital Signs (Past 12 Hours) Vital Signs Temp Pulse Pulse Pulse Resp BP Pulse Ox 01/15/25 11:38 79 22 113/69 92 01/15/25 08:00 74 01/15/25 08:00 01/15/25 07:57 86 20 110/63 95 01/15/25 07:10 76 20 96 01/15/25 02:10 37.5 C 82 19 119/72 90 01/15/25 01:38 90 18 92 O2 Del Method O2 Flow Rate 01/15/25 11:38 Nasal Cannula 2 01/15/25 08:00 01/15/25 08:00 Nasal Cannula 2 01/15/25 07:57 Nebulizer 01/15/25 07:10 Nasal Cannula 2 01/15/25 02:10 Nasal Cannula 2 01/15/25 01:38 Nasal Cannula 2 Laboratory Results -personally reviewed, elevated leukocytosis, BNP close to age adjusted normal, t roponin downtrending Medications Administered Allopurinol (Allopurinol 100 Mg Tab) 100 mg PO [facility] Stop: 02/14/25 08:59 Last Admin: 01/15/25 08:58 Dose: 100 mg Documented By: KELECHI Buspirone HCl (Buspirone 5 Mg Tab) 10 mg PO BID [facility] Stop: 02/14/25 08:59 Last Admin: 01/15/25 08:57 Dose: 10 mg Documented By: KELECHI Calcium Carbonate (Calcium Carbonate 500 Mg Chewable Tab) 500 mg PO [facility] Stop: 02/14/25 08:59 Last Admin: 01/15/25 08:59 Dose: 500 mg Documented By: KELECHI Colchicine (Colchicine 0.6 Mg Tab) 0.6 mg PO BID [facility] Stop: 02/14/25 08:59 Last Admin: 01/15/25 09:00 Dose: 0.6 mg Documented By: KELECHI Cyanocobalamin (Cyanocobalamin (B-12) 2,500 Mcg Tablet) 5,000 mcg SL DAILY [facility] Stop: 02/14/25 08:59 Last Admin: 01/15/25 08:56 Dose: 5,000 mcg Documented By: KELECHI Fluticasone Propionate (Fluticasone Propionate Na Spr 16 Gm Btl) 2 sprays NA DAILY [facility] Stop: 02/14/25 08:59 Last Admin: 01/15/25 09:02 Dose: 2 sprays Documented By: KELECHI Folic Acid (Folic Acid 1 Mg Tab) [facility] Stop: 02/14/25 08:59 Last Admin: 01/15/25 09:01 Dose: 1 mg Documented By: KELECHI Piperacillin Sod/Tazobactam Sod (Zosyn) 4.5 gm in 100 mls @ 25 mls/hr IV Q8H [facility]; Protocol Stop: 01/22/25 00:59 Last Admin: 01/15/25 08:55 Dose: 25 mls/hr Documented By: Infusion: 01/15/25 06:20 Dose: Infused Documented By: Admin: 01/15/25 02:05 Dose: 25 mls/hr Documented By: CASTRO Potassium Chloride/Sodium Chloride (Normal Saline W/20 Meq Kcl) 20 meq in 1,000 mls @ 75 mls/hr IV .[id number] ONE Stop: 01/15/25 14:15 Last Admin: 01/15/25 02:05 Dose: 75 mls/hr Documented By: CASTRO Ipratropium [place] (Ipratropium [place] Neb Soln 0.02% 0.5mg/2.5ml Vial) 0.5 mg INH Q6R [facility] Stop: 02/14/25 00:59 Last Admin: 01/15/25 07:10 Dose: 0.5 mg Documented By: Admin: 01/15/25 01:38 Dose: 0.5 mg Documented By: CIELO Isosorbide Mononitrate (Isosorbide [place] Extended Rel 30 Mg Tabcr) 15 mg PO [facility] Stop: 02/14/25 08:59 Last Admin: 01/15/25 08:57 Dose: 15 mg Documented By: KELECHI Levalbuterol HCl (Levalbuterol 1.25 Mg/3 Ml Neb) 1.25 mg NEB Q6R [facility] Stop: 02/14/25 00:59 Last Admin: 01/15/25 07:10 Dose: 1.25 mg Documented By: Admin: 01/15/25 01:38 Dose: 1.25 mg Documented By: CIELO Loratadine (Loratadine 10 Mg Tab) 10 mg PO [facility] Stop: 02/14/25 08:59 Last Admin: 01/15/25 08:56 Dose: 10 mg Documented By: KELECHI Metoprolol Succinate (Metoprolol Succ 25mg Ext Rel Tab) 12.5 mg PO [facility] Stop: 02/14/25 08:59 Last Admin: 01/15/25 08:58 Dose: 12.5 mg Documented By: KELECHI Miscellaneous (Remove Nicoderm Patch) 1 each N/A DAILY@0859 [facility] Stop: 02/14/25 08:58 Last Admin: 01/15/25 08:55 Dose: 1 each Documented By: KELECHI Multivitamins/Minerals (Cerovite Adv Formula Tab) 1 tab PO [facility] Stop: 02/14/25 08:59 Last Admin: 01/15/25 08:57 Dose: 1 tab Documented By: KELECHI Nicotine (Nicotine 7 Mg/24 Hr Tdsy) 1 patch TD HS [facility] Stop: 02/14/25 02:49 Last Admin: 01/15/25 03:21 Dose: 1 patch Documented By: CASTRO Pantoprazole Sodium (Pantoprazole 40 Mg Tab) 40 mg PO DAILYBB [facility] Stop: 02/14/25 06:29 Last Admin: 01/15/25 06:21 Dose: 40 mg Documented By: CASTRO Prednisone (Prednisone 20 Mg Tab) 40 mg PO DAILY [facility] Stop: 01/19/25 08:59 Last Admin: 01/15/25 08:56 Dose: 40 mg Documented By: KELECHI Sertraline HCl (Sertraline Hcl 100 Mg Tablet) 100 mg PO [facility] Stop: 02/14/25 08:59 Last Admin: 01/15/25 08:58 Dose: 100 mg Documented By: KELECHI Thiamine HCl (Thiamine Hcl 100 Mg Tab) 100 mg PO [facility] Stop: 02/14/25 08:59 Last Admin: 01/15/25 12:01 Dose: 100 mg Documented By: KELECHI Vitamin D (Cholecalciferol 25 Mcg (1000 Units) Tab) 50 mcg PO DAILY [facility] Stop: 02/14/25 08:59 Last Admin: 01/15/25 09:00 Dose: 50 mcg Documented By: KELECHI
--- NOTE | 2025-01-15 17:30 | Electrocardiogram Report ---
Test Reason : Blood Pressure : */* mmHG Vent. Rate : 104 BPM Atrial Rate : 104 BPM P-R Int : 212 ms QRS Dur : 86 ms QT Int : 336 ms P-R-T Axes : 80 -10 82 degrees QTcB Int : 441 ms Sinus tachycardia with 1st degree A-V block Premature atrial complexes Otherwise normal ECG When compared with ECG of 03-Dec-2024 10:10, Premature atrial complexes are now Present Confirmed by Crow Ruano ([id number]) on 01/15/2025 5:29:58 PM Referred By: REFERRED SELF Confirmed By: Crow Ruano
[2025-01-15] MEDS: ROSUVASTATIN CALCIUM 20 MG TAB PO SCH (20:32)
[2025-01-15] MEDS: BENZONATATE 100 MG CAPSULE PO PRN (20:33)
[2025-01-16 06:40] LABS: Hemoglobin 13.2 g/dl (14.0-18.0); Mean Corpuscular Hemoglobin 32.1 pg (25.0-34.0); Mean Corpuscular Hgb Conc 34.7 g/dL (32.0-36.0); Mean Corpuscular Volume 92.5 fL (80.0-100.0); Mean Platelet Volume 9.4 fL (9.4-12.4); Platelet Count 244 K/uL (130-400); RDW Coefficient of Variation 13.7 % (11.5-14.5); RDW Standard Deviation 46.7 fL (36.4-46.3); Red Blood Count 4.11 M/uL (4.70-6.10); White Blood Count 11.16 K/ul (4.8-10.8)
[2025-01-16 06:57] LABS: BUN Creatinine Ratio 22.4 (10-20); Calcium 8.7 mg/dl (8.6-10.3); Potassium 3.4 mmol/L (3.5-5.1)
[2025-01-16] MEDS: POTASSIUM CHLORIDE CRTAB 20 MEQ TABCR PO STA (08:55)
--- NOTE | 2025-01-16 13:39 | Hospitalist Progress Note ---
Date of Service January 16, 2025 Assessment & Plan (1) Acute hypoxemic respiratory failure: Plan: Acute hypoxemic respiratory failure Parainfluenza Infection HAP Hemoptysis -Secondary to COPD exacerbation secondary to HCAP -Recent vascular procedure, history of PVD Plan: -continue zosyn, check MRSA swab -sputum culture ordered -continue prednisone -continue inhalers -IS, flutter valve ordered -hold eliquis for another day today -supportive care for parainfluenza Hyperactive Delirium -multifactorial in setting of acute illness, hospital setting, likely mild cognitive impairement, perhaps mild withdrawal Plan: -delirium precautions -avoid anticholinergics #Alcohol Use -risk for alcohol withdrawal Troponin elevation secondary to illness hx CAD GERD, on PPI anxiety/mood disorder, some anxiety during exam Hyperglycemia, hemoglobin A1c of 5.3 from last month ongoing tobacco/alcohol abuse I spent a total of 40 minutes in direct patient care, including [id number] time with the patient and/or family, reviewing medical records, ordering and reviewing diagnostic tests, and coordinating care with other healthcare providers. This time includes: history taking, physical examination, medical decision making, counseling, ECG interpretation, imaging interpretation, lab interpretation, orders, and education, excluding time spent in the performance of separately billed services. Admission and Anticipated Discharge Date Admission Date: January 14, 2025 Subjective Patient seen and examined at bedside. Patient still feeling SOB at this time. No acute events overnight. Alert and orriented x3 today. Review of Systems Review of Systems: CONSTITUTIONAL: Patient denies fevers, chills, sweats and weight changes. EYES: Patient denies any visual symptoms. EARS, NOSE, AND THROAT: No difficulties with hearing. No symptoms of rhinitis or sore throat. CARDIOVASCULAR: Patient denies chest pains, palpitations, orthopnea and paroxysmal nocturnal dyspnea. RESPIRATORY: SOB GI: No nausea, vomiting, diarrhea, constipation, abdominal pain, hematochezia or melena. : No urinary hesitancy or dribbling. No nocturia or urinary frequency. No abnormal urethral discharge. MUSCULOSKELETAL: No myalgias or arthralgias. NEUROLOGIC: No chronic headaches, no seizures. Patient denies numbness, tingling or weakness. PSYCHIATRIC: Patient denies problems with mood disturbance. No problems with anxiety. ENDOCRINE: No excessive urination or excessive thirst. DERMATOLOGIC: Patient denies any rashes or skin changes. Physical Exam Physical Exam: Gen: A&O 3 NAD HEENT: NCAT, EOMI, not icteric. External ears normal. No rhinorrhea. Moist mucous membranes. Neck: Supple, full range of motion, no observable masses, No meningeal sign. Lungs: rhonchi noted in RLL CV: RRR, no edema. Abdomen: Soft, nondistended, No rebound tenderness. MSK: No joint swelling, no redness. Skin: No rashes, petechiae, lesions. Normal color per patient. Neuro: Normal Gait, Grossly intact. Results & Data Results & Data Vital Signs (Past 12 Hours) Vital Signs Temp Pulse Pulse Resp BP Pulse Ox O2 Del Method 01/16/25 13:10 80 18 94 Nasal Cannula 01/16/25 12:06 36.6 C 93 H 22 150/77 H 91 Nasal Cannula 01/16/25 10:07 Nasal Cannula 01/16/25 08:01 36.4 C L 88 22 151/90 H 91 Nebulizer 01/16/25 07:37 77 01/16/25 07:21 73 18 92 Nasal Cannula 01/16/25 03:48 36.8 C 74 20 145/85 H 91 Nasal Cannula O2 Flow Rate 01/16/25 13:10 2 01/16/25 12:06 1 01/16/25 10:07 2 01/16/25 08:01 01/16/25 07:37 01/16/25 07:21 2 01/16/25 03:48 2 Laboratory Results -personally reviewed, leukocytosis is downtrended, creatinine at baseline Medications Administered Allopurinol (Allopurinol 100 Mg Tab) 100 mg PO QAM [facility] Stop: 02/14/25 08:59 Last Admin: 01/16/25 08:57 Dose: 100 mg Documented By: Admin: 01/15/25 08:58 Dose: 100 mg Documented By: KELECHI Benzonatate (Benzonatate 100 Mg Capsule) 100 mg PO TID PRN PRN Reason: Cough Stop: 02/13/25 21:34 Last Admin: 01/15/25 20:33 Dose: 100 mg Documented By: CASTRO Buspirone HCl (Buspirone 5 Mg Tab) 10 mg PO BID [facility] Stop: 02/14/25 08:59 Last Admin: 01/16/25 08:57 Dose: 10 mg Documented By: Admin: 01/15/25 20:32 Dose: 10 mg Documented By: Admin: 01/15/25 08:57 Dose: 10 mg Documented By: KELECHI Calcium Carbonate (Calcium Carbonate 500 Mg Chewable Tab) 500 mg PO QAM [facility] Stop: 02/14/25 08:59 Last Admin: 01/16/25 09:14 Dose: Not Given Documented By: Admin: 01/15/25 08:59 Dose: 500 mg Documented By: KELECHI Colchicine (Colchicine 0.6 Mg Tab) 0.6 mg PO BID [facility] Stop: 02/14/25 08:59 Last Admin: 01/16/25 08:59 Dose: 0.6 mg Documented By: Admin: 01/15/25 20:33 Dose: 0.6 mg Documented By: Admin: 01/15/25 09:00 Dose: 0.6 mg Documented By: KELECHI Cyanocobalamin (Cyanocobalamin (B-12) 2,500 Mcg Tablet) 5,000 mcg SL DAILY [facility] Stop: 02/14/25 08:59 Last Admin: 01/16/25 08:59 Dose: 5,000 mcg Documented By: Admin: 01/15/25 08:56 Dose: 5,000 mcg Documented By: KELECHI Fluticasone Propionate (Fluticasone Propionate Na Spr 16 Gm Btl) 2 sprays NA DAILY [facility] Stop: 02/14/25 08:59 Last Admin: 01/16/25 08:59 Dose: 2 sprays Documented By: Admin: 01/15/25 09:02 Dose: 2 sprays Documented By: KELECHI Folic Acid (Folic Acid 1 Mg Tab) [facility] [place] Stop: 02/14/25 08:59 Last Admin: 01/16/25 08:59 Dose: 1 mg Documented By: Admin: 01/15/25 09:01 Dose: 1 mg Documented By: KELECHI Piperacillin Sod/Tazobactam Sod (Zosyn) 4.5 gm in 100 mls @ 25 mls/hr IV Q8H [facility]; Protocol Stop: 01/22/25 00:59 Last Infusion: 01/16/25 13:01 Dose: Infused Documented By: Admin: 01/16/25 09:01 Dose: 25 mls/hr Documented By: Infusion: 01/16/25 05:27 Dose: Infused Documented By: Admin: 01/16/25 01:12 Dose: 25 mls/hr Documented By: Infusion: 01/15/25 22:03 Dose: Infused Documented By: Admin: 01/15/25 17:31 Dose: 25 mls/hr Documented By: Infusion: 01/15/25 13:59 Dose: Infused Documented By: Admin: 01/15/25 08:55 Dose: 25 mls/hr Documented By: Infusion: 01/15/25 06:20 Dose: Infused Documented By: Admin: 01/15/25 02:05 Dose: 25 mls/hr Documented By: CASTRO Ipratropium [place] (Ipratropium [place] Neb Soln 0.02% 0.5mg/2.5ml Vial) 0.5 mg INH Q6R [facility] Stop: 02/14/25 00:59 Last Admin: 01/16/25 13:08 Dose: 0.5 mg Documented By: Admin: 01/16/25 07:29 Dose: 0.5 mg Documented By: Admin: 01/16/25 07:21 Dose: Not Given Documented By: Admin: 01/16/25 00:24 Dose: 0.5 mg Documented By: Admin: 01/15/25 20:24 Dose: 0.5 mg Documented By: Admin: 01/15/25 13:32 Dose: 0.5 mg Documented By: Admin: 01/15/25 07:10 Dose: 0.5 mg Documented By: Admin: 01/15/25 01:38 Dose: 0.5 mg Documented By: CIELO Isosorbide Mononitrate (Isosorbide [place] Extended Rel 30 Mg Tabcr) 15 mg PO QAM [facility] Stop: 02/14/25 08:59 Last Admin: 01/16/25 09:00 Dose: 15 mg Documented By: Admin: 01/15/25 08:57 Dose: 15 mg Documented By: KELECHI Levalbuterol HCl (Levalbuterol 1.25 Mg/3 Ml Neb) 1.25 mg NEB Q6R [facility] Stop: 02/14/25 00:59 Last Admin: 01/16/25 13:09 Dose: 1.25 mg Documented By: Admin: 01/16/25 07:29 Dose: 1.25 mg Documented By: Admin: 01/16/25 07:21 Dose: Not Given Documented By: Admin: 01/16/25 00:24 Dose: 1.25 mg Documented By: Admin: 01/15/25 20:24 Dose: 1.25 mg Documented By: Admin: 01/15/25 13:32 Dose: 1.25 mg Documented By: Admin: 01/15/25 07:10 Dose: 1.25 mg Documented By: Admin: 01/15/25 01:38 Dose: 1.25 mg Documented By: CIELO Metoprolol Succinate (Metoprolol Succ 25mg Ext Rel Tab) 12.5 mg PO QAM [facility] Stop: 02/14/25 08:59 Last Admin: 01/16/25 09:00 Dose: 12.5 mg Documented By: Admin: 01/15/25 08:58 Dose: 12.5 mg Documented By: KELECHI Miscellaneous (Remove Nicoderm Patch) 1 each N/A DAILY@2058 [facility] Stop: 02/14/25 20:58 Last Admin: 01/15/25 20:32 Dose: 1 each Documented By: CASTRO Multivitamins/Minerals (Cerovite Adv Formula Tab) [facility] [place] Stop: 02/14/25 08:59 Last Admin: 01/16/25 09:01 Dose: 1 tab Documented By: Admin: 01/15/25 08:57 Dose: 1 tab Documented By: KELECHI Nicotine (Nicotine 7 Mg/24 Hr Tdsy) 1 patch TD HS [facility] Stop: 02/14/25 02:49 Last Admin: 01/15/25 20:36 Dose: 1 patch Documented By: Admin: 01/15/25 03:21 Dose: 1 patch Documented By: CASTRO Pantoprazole Sodium (Pantoprazole 40 Mg Tab) 40 mg PO DAILYBB [facility] Stop: 02/14/25 06:29 Last Admin: 01/16/25 05:25 Dose: 40 mg Documented By: Admin: 01/15/25 06:21 Dose: 40 mg Documented By: CASTRO Prednisone (Prednisone 20 Mg Tab) 40 mg PO DAILY [facility] Stop: 01/19/25 08:59 Last Admin: 01/16/25 09:01 Dose: 40 mg Documented By: Admin: 01/15/25 08:56 Dose: 40 mg Documented By: KELECHI Rosuvastatin Calcium (Rosuvastatin Calcium 20 Mg Tab) 40 mg PO [facility] Stop: 02/14/25 20:59 Last Admin: 01/15/25 20:32 Dose: 40 mg Documented By: CASTRO Sertraline HCl (Sertraline Hcl 100 Mg Tablet) 100 mg PO [facility] Stop: 02/14/25 08:59 Last Admin: 01/16/25 09:01 Dose: 100 mg Documented By: Admin: 01/15/25 08:58 Dose: 100 mg Documented By: KELECHI Thiamine HCl (Thiamine Hcl 100 Mg Tab) 100 mg PO [facility] Stop: 02/14/25 08:59 Last Admin: 01/16/25 09:01 Dose: 100 mg Documented By: Admin: 01/15/25 12:01 Dose: 100 mg Documented By: KELECHI Vitamin D (Cholecalciferol 25 Mcg (1000 Units) Tab) 50 mcg PO DAILY [facility] Stop: 02/14/25 08:59 Last Admin: 01/16/25 08:58 Dose: 50 mcg Documented By: Admin: 01/15/25 09:00 Dose: 50 mcg Documented By: KELECHI
[2025-01-16 13:58] LABS: Creatinine Clr Calc Pharmacy 77.9 ml/min
[2025-01-16 13:58] LABS: Creatinine Clr Calc Pharmacy 84.1 ml/min
[2025-01-16] MEDS: AZITHROMYCIN 250 MG TAB PO SCH (16:06)
[2025-01-16] MEDS: OLANZapine ZYDIS 5 MG ORALLY DIS. TAB PO STA (22:40)
[2025-01-17 06:38] LABS: Hematocrit (blood only) 40.2 % (42.0-52.0); Hemoglobin 13.9 g/dl (14.0-18.0); Mean Corpuscular Hgb Conc 34.6 g/dL (32.0-36.0); Mean Corpuscular Volume 92.6 fL (80.0-100.0); Mean Platelet Volume 9.2 fL (9.4-12.4); Platelet Count 287 K/uL (130-400); RDW Coefficient of Variation 13.7 % (11.5-14.5); Red Blood Count 4.34 M/uL (4.70-6.10); White Blood Count 10.22 K/ul (4.8-10.8)
[2025-01-17 06:56] LABS: Calcium 8.9 mg/dl (8.6-10.3); Creatinine Clr Calc Pharmacy 85.2 ml/min; Potassium 3.5 mmol/L (3.5-5.1)
--- NOTE | 2025-01-17 12:13 | Hospitalist Progress Note ---
Date of Service January 17, 2025 Assessment & Plan (1) Acute hypoxemic respiratory failure: Plan: Acute hypoxemic respiratory failure Parainfluenza Infection HAP Hemoptysis -Secondary to COPD exacerbation secondary to HCAP -Recent vascular procedure, history of PVD Plan: -stop abx at this time, appreciate ID stewardship assistance -continue prednisone -continue inhalers -IS, flutter valve ordered -restart eliquis today -supportive care for parainfluenza -awaiting SNF placement, medically stable for SNF at this time Hyperactive Delirium -multifactorial in setting of acute illness, hospital setting, likely mild cognitive impairement, perhaps mild withdrawal Plan: -delirium precautions -avoid anticholinergics #Alcohol Use -risk for alcohol withdrawal Troponin elevation secondary to illness hx CAD GERD, on PPI anxiety/mood disorder, some anxiety during exam Hyperglycemia, hemoglobin A1c of 5.3 from last month ongoing tobacco/alcohol abuse I spent a total of 40 minutes in direct patient care, including [id number] time with the patient and/or family, reviewing medical records, ordering and reviewing diagnostic tests, and coordinating care with other healthcare providers. This time includes: history taking, physical examination, medical decision making, counseling, ECG interpretation, imaging interpretation, lab interpretation, orders, and education, excluding time spent in the performance of separately billed services. Admission and Anticipated Discharge Date Admission Date: January 14, 2025 Subjective Patient seen and examined at bedside. Mr. Powers states he feels ok today. Feels slightly better than yesterday however still feels a bit below baselne. Review of Systems Review of Systems: CONSTITUTIONAL: Patient denies fevers, chills, sweats and weight changes. EYES: Patient denies any visual symptoms. EARS, NOSE, AND THROAT: No difficulties with hearing. No symptoms of rhinitis or sore throat. CARDIOVASCULAR: Patient denies chest pains, palpitations, orthopnea and paroxysmal nocturnal dyspnea. RESPIRATORY: SOB, improving GI: No nausea, vomiting, diarrhea, constipation, abdominal pain, hematochezia or melena. : No urinary hesitancy or dribbling. No nocturia or urinary frequency. No abnormal urethral discharge. MUSCULOSKELETAL: No myalgias or arthralgias. NEUROLOGIC: No chronic headaches, no seizures. Patient denies numbness, tingling or weakness. PSYCHIATRIC: Patient denies problems with mood disturbance. No problems with anxiety. ENDOCRINE: No excessive urination or excessive thirst. DERMATOLOGIC: Patient denies any rashes or skin changes. Physical Exam Physical Exam: Gen: A&O 3 NAD HEENT: NCAT, EOMI, not icteric. External ears normal. No rhinorrhea. Moist mucous membranes. Neck: Supple, full range of motion, no observable masses, No meningeal sign. Lungs: rhonchi noted in RLL CV: RRR, no edema. Abdomen: Soft, nondistended, No rebound tenderness. MSK: No joint swelling, no redness. Skin: No rashes, petechiae, lesions. Normal color per patient. Neuro: Normal Gait, Grossly intact. Results & Data Results & Data Vital Signs (Past 12 Hours) Vital Signs Temp Pulse Pulse Resp BP Pulse Ox O2 Del Method 01/17/25 11:03 36.9 C 71 19 139/81 90 Nasal Cannula 01/17/25 10:02 Nasal Cannula 01/17/25 08:02 36.9 C 87 19 155/95 H 92 Nasal Cannula 01/17/25 07:34 70 01/17/25 07:01 73 18 90 Nasal Cannula 01/17/25 03:21 36.4 C L 67 20 157/95 H 90 Nasal Cannula 01/17/25 01:46 57 L 20 90 Nasal Cannula O2 Flow Rate 01/17/25 11:03 1 01/17/25 10:02 2 01/17/25 08:02 1 01/17/25 07:34 01/17/25 07:01 1 01/17/25 03:21 01/17/25 01:46 1 Laboratory Results -personally reviewed, downtrending WBC, stable creatinine Medications Administered Allopurinol (Allopurinol 100 Mg Tab) 100 mg PO [facility] Stop: 02/14/25 08:59 Last Admin: 01/17/25 09:02 Dose: 100 mg Documented By: Admin: 01/16/25 08:57 Dose: 100 mg Documented By: Admin: 01/15/25 08:58 Dose: 100 mg Documented By: KELECHI Azithromycin (Azithromycin 250 Mg Tab) 500 mg PO [facility] Stop: 01/21/25 15:14 Last Admin: 01/17/25 09:02 Dose: 500 mg Documented By: Admin: 01/16/25 16:06 Dose: 500 mg Documented By: BAILEE Benzonatate (Benzonatate 100 Mg Capsule) 100 mg PO TID PRN PRN Reason: Cough Stop: 02/13/25 21:34 Last Admin: 01/15/25 20:33 Dose: 100 mg Documented By: CASTRO Buspirone HCl (Buspirone 5 Mg Tab) 10 mg PO BID [facility] Stop: 02/14/25 08:59 Last Admin: 01/17/25 09:03 Dose: 10 mg Documented By: Admin: 01/16/25 20:24 Dose: 10 mg Documented By: Admin: 01/16/25 08:57 Dose: 10 mg Documented By: Admin: 01/15/25 20:32 Dose: 10 mg Documented By: Admin: 01/15/25 08:57 Dose: 10 mg Documented By: KELECHI Calcium Carbonate (Calcium Carbonate 500 Mg Chewable Tab) 500 mg PO QAM [facility] Stop: 02/14/25 08:59 Last Admin: 01/17/25 09:16 Dose: 500 mg Documented By: Admin: 01/16/25 09:14 Dose: Not Given Documented By: Admin: 01/15/25 08:59 Dose: 500 mg Documented By: KELECHI Colchicine (Colchicine 0.6 Mg Tab) 0.6 mg PO BID [facility] Stop: 02/14/25 08:59 Last Admin: 01/17/25 09:03 Dose: 0.6 mg Documented By: Admin: 01/16/25 20:24 Dose: 0.6 mg Documented By: Admin: 01/16/25 08:59 Dose: 0.6 mg Documented By: Admin: 01/15/25 20:33 Dose: 0.6 mg Documented By: Admin: 01/15/25 09:00 Dose: 0.6 mg Documented By: KELECHI Cyanocobalamin (Cyanocobalamin (B-12) 2,500 Mcg Tablet) 5,000 mcg SL DAILY [facility] Stop: 02/14/25 08:59 Last Admin: 01/17/25 09:03 Dose: 5,000 mcg Documented By: Admin: 01/16/25 08:59 Dose: 5,000 mcg Documented By: Admin: 01/15/25 08:56 Dose: 5,000 mcg Documented By: KELECHI Fluticasone Propionate (Fluticasone Propionate Na Spr 16 Gm Btl) 2 sprays NA DAILY [facility] Stop: 02/14/25 08:59 Last Admin: 01/17/25 09:04 Dose: 2 sprays Documented By: Admin: 01/16/25 08:59 Dose: 2 sprays Documented By: Admin: 01/15/25 09:02 Dose: 2 sprays Documented By: KELECHI Folic Acid (Folic Acid 1 Mg Tab) 1 mg PO QAM [facility] Stop: 02/14/25 08:59 Last Admin: 01/17/25 09:04 Dose: 1 mg Documented By: Admin: 01/16/25 08:59 Dose: 1 mg Documented By: Admin: 01/15/25 09:01 Dose: 1 mg Documented By: KELECHI Piperacillin Sod/Tazobactam Sod (Zosyn) 4.5 gm in 100 mls @ 25 mls/hr IV Q8H [facility]; Protocol Stop: 01/22/25 00:59 Last Admin: 01/17/25 09:05 Dose: 25 mls/hr Documented By: Infusion: 01/17/25 05:47 Dose: Infused Documented By: Admin: 01/17/25 01:27 Dose: 25 mls/hr Documented By: Infusion: 01/16/25 20:47 Dose: Infused Documented By: Admin: 01/16/25 16:09 Dose: 25 mls/hr Documented By: Infusion: 01/16/25 13:01 Dose: Infused Documented By: Admin: 01/16/25 09:01 Dose: 25 mls/hr Documented By: Infusion: 01/16/25 05:27 Dose: Infused Documented By: Admin: 01/16/25 01:12 Dose: 25 mls/hr Documented By: Infusion: 01/15/25 22:03 Dose: Infused Documented By: Admin: 01/15/25 17:31 Dose: 25 mls/hr Documented By: Infusion: 01/15/25 13:59 Dose: Infused Documented By: Admin: 01/15/25 08:55 Dose: 25 mls/hr Documented By: Infusion: 01/15/25 06:20 Dose: Infused Documented By: Admin: 01/15/25 02:05 Dose: 25 mls/hr Documented By: CASTRO Ipratropium [place] (Ipratropium [place] Neb Soln 0.02% 0.5mg/2.5ml Vial) 0.5 mg INH Q6R [facility] Stop: 02/14/25 00:59 Last Admin: 01/17/25 07:01 Dose: 0.5 mg Documented By: Admin: 01/17/25 01:46 Dose: 0.5 mg Documented By: [id number] Admin: 01/16/25 19:42 Dose: 0.5 mg Documented By: [id number] Admin: 01/16/25 13:08 Dose: 0.5 mg Documented By: Admin: 01/16/25 07:29 Dose: 0.5 mg Documented By: Admin: 01/16/25 07:21 Dose: Not Given Documented By: Admin: 01/16/25 00:24 Dose: 0.5 mg Documented By: Admin: 01/15/25 20:24 Dose: 0.5 mg Documented By: Admin: 01/15/25 13:32 Dose: 0.5 mg Documented By: Admin: 01/15/25 07:10 Dose: 0.5 mg Documented By: Admin: 01/15/25 01:38 Dose: 0.5 mg Documented By: CIELO Isosorbide Mononitrate (Isosorbide [place] Extended Rel 30 Mg Tabcr) 15 mg PO QAM [facility] Stop: 02/14/25 08:59 Last Admin: 01/17/25 09:04 Dose: 15 mg Documented By: Admin: 01/16/25 09:00 Dose: 15 mg Documented By: Admin: 01/15/25 08:57 Dose: 15 mg Documented By: KELECHI Levalbuterol HCl (Levalbuterol 1.25 Mg/3 Ml Neb) 1.25 mg NEB Q6R [facility] Stop: 02/14/25 00:59 Last Admin: 01/17/25 07:01 Dose: 1.25 mg Documented By: Admin: 01/17/25 01:46 Dose: 1.25 mg Documented By: [id number] Admin: 01/16/25 19:42 Dose: 1.25 mg Documented By: [id number] Admin: 01/16/25 13:09 Dose: 1.25 mg Documented By: Admin: 01/16/25 07:29 Dose: 1.25 mg Documented By: Admin: 01/16/25 07:21 Dose: Not Given Documented By: Admin: 01/16/25 00:24 Dose: 1.25 mg Documented By: Admin: 01/15/25 20:24 Dose: 1.25 mg Documented By: Admin: 01/15/25 13:32 Dose: 1.25 mg Documented By: Admin: 01/15/25 07:10 Dose: 1.25 mg Documented By: Admin: 01/15/25 01:38 Dose: 1.25 mg Documented By: CIELO Metoprolol Succinate (Metoprolol Succ 25mg Ext Rel Tab) 12.5 mg PO QAM [facility] Stop: 02/14/25 08:59 Last Admin: 01/17/25 09:05 Dose: 12.5 mg Documented By: Admin: 01/16/25 09:00 Dose: 12.5 mg Documented By: Admin: 01/15/25 08:58 Dose: 12.5 mg Documented By: KELECHI Miscellaneous (Remove Nicoderm Patch) 1 each N/A DAILY@2058 [facility] Stop: 02/14/25 20:58 Last Admin: 01/16/25 20:26 Dose: Not Given Documented By: Admin: 01/15/25 20:32 Dose: 1 each Documented By: CASTRO Multivitamins/Minerals (Cerovite Adv Formula Tab) 1 tab PO QAM [facility] Stop: 02/14/25 08:59 Last Admin: 01/17/25 09:05 Dose: 1 tab Documented By: Admin: 01/16/25 09:01 Dose: 1 tab Documented By: Admin: 01/15/25 08:57 Dose: 1 tab Documented By: KELECHI Nicotine (Nicotine 7 Mg/24 Hr Tdsy) 1 patch TD HS [facility] Stop: 02/14/25 02:49 Last Admin: 01/16/25 20:25 Dose: 1 patch Documented By: Admin: 01/15/25 20:36 Dose: 1 patch Documented By: Admin: 01/15/25 03:21 Dose: 1 patch Documented By: CASTRO Pantoprazole Sodium (Pantoprazole 40 Mg Tab) 40 mg PO DAILYBB [facility] Stop: 02/14/25 06:29 Last Admin: 01/17/25 05:35 Dose: 40 mg Documented By: Admin: 01/16/25 05:25 Dose: 40 mg Documented By: Admin: 01/15/25 06:21 Dose: 40 mg Documented By: CASTRO Prednisone (Prednisone 20 Mg Tab) 40 mg PO DAILY [facility] Stop: 01/19/25 08:59 Last Admin: 01/17/25 09:05 Dose: 40 mg Documented By: Admin: 01/16/25 09:01 Dose: 40 mg Documented By: Admin: 01/15/25 08:56 Dose: 40 mg Documented By: KELECHI Rosuvastatin Calcium (Rosuvastatin Calcium 20 Mg Tab) 40 mg PO [facility] Stop: 02/14/25 20:59 Last Admin: 01/16/25 20:23 Dose: 40 mg Documented By: Admin: 01/15/25 20:32 Dose: 40 mg Documented By: CASTRO Sertraline HCl (Sertraline Hcl 100 Mg Tablet) 100 mg PO QA [facility] Stop: 02/14/25 08:59 Last Admin: 01/17/25 09:05 Dose: 100 mg Documented By: Admin: 01/16/25 09:01 Dose: 100 mg Documented By: Admin: 01/15/25 08:58 Dose: 100 mg Documented By: KELECHI Thiamine HCl (Thiamine Hcl 100 Mg Tab) 100 mg PO QA [facility] Stop: 02/14/25 08:59 Last Admin: 01/17/25 09:06 Dose: 100 mg Documented By: Admin: 01/16/25 09:01 Dose: 100 mg Documented By: Admin: 01/15/25 12:01 Dose: 100 mg Documented By: KELECHI Vitamin D (Cholecalciferol 25 Mcg (1000 Units) Tab) 50 mcg PO DAILY [facility] Stop: 02/14/25 08:59 Last Admin: 01/17/25 09:03 Dose: 50 mcg Documented By: Admin: 01/16/25 08:58 Dose: 50 mcg Documented By: Admin: 01/15/25 09:00 Dose: 50 mcg Documented By: KELECHI
[2025-01-17] MEDS: APIXABAN 5 MG TABLET PO SCH (19:57)
[2025-01-18 07:09] LABS: Hematocrit (blood only) 41.5 % (42.0-52.0); Mean Corpuscular Hemoglobin 31.5 pg (25.0-34.0); Mean Corpuscular Hgb Conc 33.7 g/dL (32.0-36.0); Mean Corpuscular Volume 93.5 fL (80.0-100.0); Mean Platelet Volume 9.2 fL (9.4-12.4); Platelet Count 351 K/uL (130-400); RDW Coefficient of Variation 13.5 % (11.5-14.5); RDW Standard Deviation 46.2 fL (36.4-46.3); Red Blood Count 4.44 M/uL (4.70-6.10); White Blood Count 9.02 K/ul (4.8-10.8)
[2025-01-18 07:29] LABS: BUN Creatinine Ratio 19.3 (10-20); Calcium 9.2 mg/dl (8.6-10.3); Creatinine Clr Calc Pharmacy 72.6 ml/min; Potassium 3.5 mmol/L (3.5-5.1)
--- NOTE | 2025-01-18 12:13 | Hospitalist Progress Note ---
Date of Service January 18, 2025 Assessment & Plan (1) Acute hypoxemic respiratory failure: Plan: Acute hypoxemic respiratory failure Parainfluenza Infection HAP Hemoptysis -Secondary to COPD exacerbation secondary to HCAP -Recent vascular procedure, history of PVD Plan: -stop abx at this time, appreciate ID stewardship assistance -continue prednisone -continue inhalers -IS, flutter valve ordered -continue eliquis today -supportive care for parainfluenza -awaiting SNF placement, medically stable for SNF at this time Hyperactive Delirium -multifactorial in setting of acute illness, hospital setting, likely mild cognitive impairement, perhaps mild withdrawal Plan: -delirium precautions -avoid anticholinergics #Alcohol Use -risk for alcohol withdrawal Troponin elevation secondary to illness hx CAD GERD, on PPI anxiety/mood disorder, some anxiety during exam Hyperglycemia, hemoglobin A1c of 5.3 from last month ongoing tobacco/alcohol abuse I spent a total of 45 minutes in direct patient care, including [id number] time with the patient and/or family, reviewing medical records, ordering and reviewing diagnostic tests, and coordinating care with other healthcare providers. This time includes: history taking, physical examination, medical decision making, counseling, ECG interpretation, imaging interpretation, lab interpretation, orders, and education, excluding time spent in the performance of separately billed services. Admission and Anticipated Discharge Date Admission Date: January 14, 2025 Subjective Patient seen and examined at bedside. Patient doing well today, no concerns at this time. Awaiting placement. Review of Systems Review of Systems: CONSTITUTIONAL: Patient denies fevers, chills, sweats and weight changes. EYES: Patient denies any visual symptoms. EARS, NOSE, AND THROAT: No difficulties with hearing. No symptoms of rhinitis or sore throat. CARDIOVASCULAR: Patient denies chest pains, palpitations, orthopnea and paroxysmal nocturnal dyspnea. RESPIRATORY: SOB, improving GI: No nausea, vomiting, diarrhea, constipation, abdominal pain, hematochezia or melena. : No urinary hesitancy or dribbling. No nocturia or urinary frequency. No abnormal urethral discharge. MUSCULOSKELETAL: No myalgias or arthralgias. NEUROLOGIC: No chronic headaches, no seizures. Patient denies numbness, tingling or weakness. PSYCHIATRIC: Patient denies problems with mood disturbance. No problems with anxiety. ENDOCRINE: No excessive urination or excessive thirst. DERMATOLOGIC: Patient denies any rashes or skin changes. Physical Exam Physical Exam: Gen: A&O 3 NAD HEENT: NCAT, EOMI, not icteric. External ears normal. No rhinorrhea. Moist mucous membranes. Neck: Supple, full range of motion, no observable masses, No meningeal sign. Lungs: rhonchi noted in RLL CV: RRR, no edema. Abdomen: Soft, nondistended, No rebound tenderness. MSK: No joint swelling, no redness. Skin: No rashes, petechiae, lesions. Normal color per patient. Neuro: Normal Gait, Grossly intact. Results & Data Results & Data Vital Signs (Past 12 Hours) Vital Signs Temp Pulse Resp BP Pulse Ox O2 Del Method O2 Flow Rate 01/18/25 08:00 Nasal Cannula 2 01/18/25 08:00 37.0 C 77 18 154/60 H 95 Nasal Cannula 01/18/25 07:11 77 17 94 Nasal Cannula 1 01/18/25 03:26 37.0 C 87 20 125/86 90 Nasal Cannula 01/18/25 02:19 65 16 95 1 Laboratory Results -personally reviewed, creatinine at baseline, no leukocytosis Medications Administered Allopurinol (Allopurinol 100 Mg Tab) 100 mg PO QAM [facility] Stop: 02/14/25 08:59 Last Admin: 01/18/25 08:36 Dose: 100 mg Documented By: Admin: 01/17/25 09:02 Dose: 100 mg Documented By: Admin: 01/16/25 08:57 Dose: 100 mg Documented By: Admin: 01/15/25 08:58 Dose: 100 mg Documented By: KELECHI Apixaban (Apixaban 5 Mg Tablet) 5 mg PO BID [facility] Stop: 02/16/25 20:59 Last Admin: 01/18/25 08:33 Dose: 5 mg Documented By: Admin: 01/17/25 19:57 Dose: 5 mg Documented By: VIANEY Benzonatate (Benzonatate 100 Mg Capsule) 100 mg PO TID PRN PRN Reason: Cough Stop: 02/13/25 21:34 Last Admin: 01/15/25 20:33 Dose: 100 mg Documented By: CASTRO Buspirone HCl (Buspirone 5 Mg Tab) 10 mg PO BID [facility] Stop: 02/14/25 08:59 Last Admin: 01/18/25 08:37 Dose: 10 mg Documented By: Admin: 01/17/25 19:56 Dose: 10 mg Documented By: Admin: 01/17/25 09:03 Dose: 10 mg Documented By: Admin: 01/16/25 20:24 Dose: 10 mg Documented By: Admin: 01/16/25 08:57 Dose: 10 mg Documented By: Admin: 01/15/25 20:32 Dose: 10 mg Documented By: Admin: 01/15/25 08:57 Dose: 10 mg Documented By: KELECHI Calcium Carbonate (Calcium Carbonate 500 Mg Chewable Tab) 500 mg PO QAM [facility] Stop: 02/14/25 08:59 Last Admin: 01/18/25 08:47 Dose: 500 mg Documented By: Admin: 01/17/25 09:16 Dose: 500 mg Documented By: Admin: 01/16/25 09:14 Dose: Not Given Documented By: Admin: 01/15/25 08:59 Dose: 500 mg Documented By: KELECHI Colchicine (Colchicine 0.6 Mg Tab) 0.6 mg PO BID [facility] Stop: 02/14/25 08:59 Last Admin: 01/18/25 08:33 Dose: 0.6 mg Documented By: Admin: 01/17/25 19:57 Dose: 0.6 mg Documented By: Admin: 01/17/25 09:03 Dose: 0.6 mg Documented By: Admin: 01/16/25 20:24 Dose: 0.6 mg Documented By: Admin: 01/16/25 08:59 Dose: 0.6 mg Documented By: Admin: 01/15/25 20:33 Dose: 0.6 mg Documented By: Admin: 01/15/25 09:00 Dose: 0.6 mg Documented By: KELECHI Cyanocobalamin (Cyanocobalamin (B-12) 2,500 Mcg Tablet) 5,000 mcg SL DAILY [facility] Stop: 02/14/25 08:59 Last Admin: 01/18/25 08:34 Dose: 5,000 mcg Documented By: Admin: 01/17/25 09:03 Dose: 5,000 mcg Documented By: Admin: 01/16/25 08:59 Dose: 5,000 mcg Documented By: Admin: 01/15/25 08:56 Dose: 5,000 mcg Documented By: KELECHI Fluticasone Propionate (Fluticasone Propionate Na Spr 16 Gm Btl) 2 sprays NA DAILY [facility] Stop: 02/14/25 08:59 Last Admin: 01/18/25 08:36 Dose: 2 sprays Documented By: Admin: 01/17/25 09:04 Dose: 2 sprays Documented By: Admin: 01/16/25 08:59 Dose: 2 sprays Documented By: Admin: 01/15/25 09:02 Dose: 2 sprays Documented By: KELECHI Folic Acid (Folic Acid 1 Mg Tab) 1 mg PO QAM [facility] Stop: 02/14/25 08:59 Last Admin: 01/18/25 08:36 Dose: 1 mg Documented By: Admin: 01/17/25 09:04 Dose: 1 mg Documented By: Admin: 01/16/25 08:59 Dose: 1 mg Documented By: Admin: 01/15/25 09:01 Dose: 1 mg Documented By: KELECHI Ipratropium [place] (Ipratropium [place] Neb Soln 0.02% 0.5mg/2.5ml Vial) 0.5 mg INH Q6R [facility] Stop: 02/14/25 00:59 Last Admin: 01/18/25 07:11 Dose: 0.5 mg Documented By: Admin: 01/18/25 02:19 Dose: 0.5 mg Documented By: [email or web address] Admin: 01/17/25 19:50 Dose: 0.5 mg Documented By: Admin: 01/17/25 12:43 Dose: 0.5 mg Documented By: [email or web address] Admin: 01/17/25 07:01 Dose: 0.5 mg Documented By: Admin: 01/17/25 01:46 Dose: 0.5 mg Documented By: [id number] Admin: 01/16/25 19:42 Dose: 0.5 mg Documented By: [id number] Admin: 01/16/25 13:08 Dose: 0.5 mg Documented By: Admin: 01/16/25 07:29 Dose: 0.5 mg Documented By: Admin: 01/16/25 07:21 Dose: Not Given Documented By: Admin: 01/16/25 00:24 Dose: 0.5 mg Documented By: Admin: 01/15/25 20:24 Dose: 0.5 mg Documented By: Admin: 01/15/25 13:32 Dose: 0.5 mg Documented By: Admin: 01/15/25 07:10 Dose: 0.5 mg Documented By: Admin: 01/15/25 01:38 Dose: 0.5 mg Documented By: CIELO Isosorbide Mononitrate (Isosorbide [place] Extended Rel 30 Mg Tabcr) 15 mg PO QAM [facility] Stop: 02/14/25 08:59 Last Admin: 01/18/25 08:36 Dose: 15 mg Documented By: Admin: 01/17/25 09:04 Dose: 15 mg Documented By: Admin: 01/16/25 09:00 Dose: 15 mg Documented By: Admin: 01/15/25 08:57 Dose: 15 mg Documented By: KELECHI Levalbuterol HCl (Levalbuterol 1.25 Mg/3 Ml Neb) 1.25 mg NEB Q6R [facility] Stop: 02/14/25 00:59 Last Admin: 01/18/25 07:11 Dose: 1.25 mg Documented By: Admin: 01/18/25 02:19 Dose: 1.25 mg Documented By: Admin: 01/17/25 19:50 Dose: 1.25 mg Documented By: Admin: 01/17/25 12:43 Dose: 1.25 mg Documented By: Admin: 01/17/25 07:01 Dose: 1.25 mg Documented By: Admin: 01/17/25 01:46 Dose: 1.25 mg Documented By: [id number] Admin: 01/16/25 19:42 Dose: 1.25 mg Documented By: [id number] Admin: 01/16/25 13:09 Dose: 1.25 mg Documented By: Admin: 01/16/25 07:29 Dose: 1.25 mg Documented By: [email or web address] Admin: 01/16/25 07:21 Dose: Not Given Documented By: Admin: 01/16/25 00:24 Dose: 1.25 mg Documented By: Admin: 01/15/25 20:24 Dose: 1.25 mg Documented By: Admin: 01/15/25 13:32 Dose: 1.25 mg Documented By: Admin: 01/15/25 07:10 Dose: 1.25 mg Documented By: Admin: 01/15/25 01:38 Dose: 1.25 mg Documented By: CIELO Metoprolol Succinate (Metoprolol Succ 25mg Ext Rel Tab) 12.5 mg PO QAM [facility] Stop: 02/14/25 08:59 Last Admin: 01/18/25 08:34 Dose: 12.5 mg Documented By: Admin: 01/17/25 09:05 Dose: 12.5 mg Documented By: Admin: 01/16/25 09:00 Dose: 12.5 mg Documented By: Admin: 01/15/25 08:58 Dose: 12.5 mg Documented By: KELECHI Miscellaneous (Remove Nicoderm Patch) 1 each N/A DAILY@2058 [facility] Stop: 02/14/25 20:58 Last Admin: 01/17/25 19:54 Dose: 1 each Documented By: Admin: 01/16/25 20:26 Dose: Not Given Documented By: Admin: 01/15/25 20:32 Dose: 1 each Documented By: CASTRO Multivitamins/Minerals (Cerovite Adv Formula Tab) 1 tab PO [facility] Stop: 02/14/25 08:59 Last Admin: 01/18/25 08:37 Dose: 1 tab Documented By: Admin: 01/17/25 09:05 Dose: 1 tab Documented By: Admin: 01/16/25 09:01 Dose: 1 tab Documented By: Admin: 01/15/25 08:57 Dose: 1 tab Documented By: KELECHI Nicotine (Nicotine 7 Mg/24 Hr Tdsy) 1 patch TD HS [facility] Stop: 02/14/25 02:49 Last Admin: 01/17/25 19:54 Dose: 1 patch Documented By: Admin: 01/16/25 20:25 Dose: 1 patch Documented By: Admin: 01/15/25 20:36 Dose: 1 patch Documented By: Admin: 01/15/25 03:21 Dose: 1 patch Documented By: CASTRO Pantoprazole Sodium (Pantoprazole 40 Mg Tab) 40 mg PO DAILYBB [facility] Stop: 02/14/25 06:29 Last Admin: 01/18/25 06:05 Dose: 40 mg Documented By: Admin: 01/17/25 05:35 Dose: 40 mg Documented By: Admin: 01/16/25 05:25 Dose: 40 mg Documented By: Admin: 01/15/25 06:21 Dose: 40 mg Documented By: CASTRO Prednisone (Prednisone 20 Mg Tab) 40 mg PO DAILY [facility] Stop: 01/19/25 08:59 Last Admin: 01/18/25 08:35 Dose: 40 mg Documented By: Admin: 01/17/25 09:05 Dose: 40 mg Documented By: Admin: 01/16/25 09:01 Dose: 40 mg Documented By: Admin: 01/15/25 08:56 Dose: 40 mg Documented By: KELECHI Rosuvastatin Calcium (Rosuvastatin Calcium 20 Mg Tab) 40 mg PO HS [facility] Stop: 02/14/25 20:59 Last Admin: 01/17/25 19:55 Dose: 40 mg Documented By: Admin: 01/16/25 20:23 Dose: 40 mg Documented By: Admin: 01/15/25 20:32 Dose: 40 mg Documented By: CASTRO Sertraline HCl (Sertraline Hcl 100 Mg Tablet) 100 mg PO QAM [facility] Stop: 02/14/25 08:59 Last Admin: 01/18/25 08:37 Dose: 100 mg Documented By: Admin: 01/17/25 09:05 Dose: 100 mg Documented By: Admin: 01/16/25 09:01 Dose: 100 mg Documented By: Admin: 01/15/25 08:58 Dose: 100 mg Documented By: KELECHI Thiamine HCl (Thiamine Hcl 100 Mg Tab) 100 mg PO QAM [facility] Stop: 02/14/25 08:59 Last Admin: 01/18/25 08:35 Dose: 100 mg Documented By: Admin: 01/17/25 09:06 Dose: 100 mg Documented By: Admin: 01/16/25 09:01 Dose: 100 mg Documented By: Admin: 01/15/25 12:01 Dose: 100 mg Documented By: KELECHI Vitamin D (Cholecalciferol 25 Mcg (1000 Units) Tab) 50 mcg PO DAILY [facility] Stop: 02/14/25 08:59 Last Admin: 01/18/25 08:37 Dose: 50 mcg Documented By: Admin: 01/17/25 09:03 Dose: 50 mcg Documented By: Admin: 01/16/25 08:58 Dose: 50 mcg Documented By: Admin: 01/15/25 09:00 Dose: 50 mcg Documented By: KELECHI
[2025-01-19 06:24] LABS: Hematocrit (blood only) 42.6 % (42.0-52.0); Hemoglobin 14.4 g/dl (14.0-18.0); Mean Corpuscular Hemoglobin 31.8 pg (25.0-34.0); Mean Corpuscular Hgb Conc 33.8 g/dL (32.0-36.0); Mean Platelet Volume 9.3 fL (9.4-12.4); Platelet Count 377 K/uL (130-400); RDW Coefficient of Variation 13.3 % (11.5-14.5); RDW Standard Deviation 46.4 fL (36.4-46.3); Red Blood Count 4.53 M/uL (4.70-6.10); White Blood Count 9.71 K/ul (4.8-10.8)
[2025-01-19 06:42] LABS: BUN Creatinine Ratio 24.2 (10-20); Calcium 9.4 mg/dl (8.6-10.3); Creatinine Clr Calc Pharmacy 70.2 ml/min; Potassium 3.6 mmol/L (3.5-5.1)
--- NOTE | 2025-01-19 12:00 | Hospitalist Progress Note ---
Date of Service January 19, 2025 Assessment & Plan (1) Acute hypoxemic respiratory failure: Plan: Acute hypoxemic respiratory failure Parainfluenza Infection HAP Hemoptysis -Secondary to COPD exacerbation secondary to HCAP -Recent vascular procedure, history of PVD Plan: -stop abx at this time, appreciate ID stewardship assistance -last day of prednisone today -continue inhalers -IS, flutter valve ordered -continue eliquis today -supportive care for parainfluenza -awaiting SNF placement, medically stable for SNF at this time Hyperactive Delirium -multifactorial in setting of acute illness, hospital setting, likely mild cognitive impairement, perhaps mild withdrawal Plan: -delirium precautions -avoid anticholinergics #Alcohol Use -risk for alcohol withdrawal Troponin elevation secondary to illness hx CAD GERD, on PPI anxiety/mood disorder, some anxiety during exam Hyperglycemia, hemoglobin A1c of 5.3 from last month ongoing tobacco/alcohol abuse I spent a total of 40 minutes in direct patient care, including [id number] time with the patient and/or family, reviewing medical records, ordering and reviewing diagnostic tests, and coordinating care with other healthcare p robby. This time includes: history taking, physical examination, medical decision making, counseling, ECG interpretation, imaging interpretation, lab interpretation, orders, and education, excluding time spent in the performance of separately billed services. Admission and Anticipated Discharge Date Admission Date: January 14, 2025 Subjective Patient seen and examined at bedside. Patient tired today. Review of Systems Review of Systems: CONSTITUTIONAL: Patient denies fevers, chills, sweats and weight changes. EYES: Patient denies any visual symptoms. EARS, NOSE, AND THROAT: No difficulties with hearing. No symptoms of rhinitis or sore throat. CARDIOVASCULAR: Patient denies chest pains, palpitations, orthopnea and paroxysmal nocturnal dyspnea. RESPIRATORY: SOB, improving GI: No nausea, vomiting, diarrhea, constipation, abdominal pain, hematochezia or melena. : No urinary hesitancy or dribbling. No nocturia or urinary frequency. No abnormal urethral discharge. MUSCULOSKELETAL: No myalgias or arthralgias. NEUROLOGIC: No chronic headaches, no seizures. Patient denies numbness, tingling or weakness. PSYCHIATRIC: Patient denies problems with mood disturbance. No problems with anxiety. ENDOCRINE: No excessive urination or excessive thirst. DERMATOLOGIC: Patient denies any rashes or skin changes. Physical Exam Physical Exam: Gen: A&O 3 NAD HEENT: NCAT, EOMI, not icteric. External ears normal. No rhinorrhea. Moist mucous membranes. Neck: Supple, full range of motion, no observable masses, No meningeal sign. Lungs: rhonchi noted in RLL, improving CV: RRR, no edema. Abdomen: Soft, nondistended, No rebound tenderness. MSK: No joint swelling, no redness. Skin: No rashes, petechiae, lesions. Normal color per patient. Neuro: Normal Gait, Grossly intact. Results & Data Results & Data Vital Signs (Past 12 Hours) Vital Signs Temp Pulse Resp BP Pulse Ox O2 Del Method O2 Flow Rate 01/19/25 08:00 36.8 C 80 18 118/62 90 Nasal Cannula 01/19/25 07:30 Room Air 01/19/25 07:02 60 16 92 Room Air 01/19/25 03:16 36.9 C 89 20 126/80 91 Nasal Cannula 01/19/25 01:59 60 18 94 Nasal Cannula 2 Laboratory Results -personally reviewed, no leukocytosis, creatinine at baseline Medications Administered Allopurinol (Allopurinol 100 Mg Tab) 100 mg PO QAM [facility] Stop: 02/14/25 08:59 Last Admin: 01/19/25 08:26 Dose: 100 mg Documented By: Admin: 01/18/25 08:36 Dose: 100 mg Documented By: Admin: 01/17/25 09:02 Dose: 100 mg Documented By: Admin: 01/16/25 08:57 Dose: 100 mg Documented By: Admin: 01/15/25 08:58 Dose: 100 mg Documented By: KELECHI Apixaban (Apixaban 5 Mg Tablet) 5 mg PO BID [facility] Stop: 02/16/25 20:59 Last Admin: 01/19/25 08:28 Dose: 5 mg Documented By: Admin: 01/18/25 20:27 Dose: 5 mg Documented By: Admin: 01/18/25 08:33 Dose: 5 mg Documented By: Admin: 01/17/25 19:57 Dose: 5 mg Documented By: VIANEY Benzonatate (Benzonatate 100 Mg Capsule) 100 mg PO TID PRN PRN Reason: Cough Stop: 02/13/25 21:34 Last Admin: 01/15/25 20:33 Dose: 100 mg Documented By: CASTRO Buspirone HCl (Buspirone 5 Mg Tab) 10 mg PO BID [facility] Stop: 02/14/25 08:59 Last Admin: 01/19/25 08:28 Dose: 10 mg Documented By: Admin: 01/18/25 20:28 Dose: 10 mg Documented By: Admin: 01/18/25 08:37 Dose: 10 mg Documented By: Admin: 01/17/25 19:56 Dose: 10 mg Documented By: Admin: 01/17/25 09:03 Dose: 10 mg Documented By: Admin: 01/16/25 20:24 Dose: 10 mg Documented By: Admin: 01/16/25 08:57 Dose: 10 mg Documented By: Admin: 01/15/25 20:32 Dose: 10 mg Documented By: Admin: 01/15/25 08:57 Dose: 10 mg Documented By: KELECHI Calcium Carbonate (Calcium Carbonate 500 Mg Chewable Tab) 500 mg PO QAM [facility] Stop: 02/14/25 08:59 Last Admin: 01/19/25 08:26 Dose: 500 mg Documented By: Admin: 01/18/25 08:47 Dose: 500 mg Documented By: Admin: 01/17/25 09:16 Dose: 500 mg Documented By: Admin: 01/16/25 09:14 Dose: Not Given Documented By: Admin: 01/15/25 08:59 Dose: 500 mg Documented By: KELECHI Colchicine (Colchicine 0.6 Mg Tab) 0.6 mg PO BID [facility] Stop: 02/14/25 08:59 Last Admin: 01/19/25 08:28 Dose: 0.6 mg Documented By: Admin: 01/18/25 20:28 Dose: 0.6 mg Documented By: Admin: 01/18/25 08:33 Dose: 0.6 mg Documented By: Admin: 01/17/25 19:57 Dose: 0.6 mg Documented By: Admin: 01/17/25 09:03 Dose: 0.6 mg Documented By: Admin: 01/16/25 20:24 Dose: 0.6 mg Documented By: Admin: 01/16/25 08:59 Dose: 0.6 mg Documented By: Admin: 01/15/25 20:33 Dose: 0.6 mg Documented By: Admin: 01/15/25 09:00 Dose: 0.6 mg Documented By: KELECHI Cyanocobalamin (Cyanocobalamin (B-12) 2,500 Mcg Tablet) 5,000 mcg SL DAILY [facility] Stop: 02/14/25 08:59 Last Admin: 01/19/25 08:27 Dose: 5,000 mcg Documented By: Admin: 01/18/25 08:34 Dose: 5,000 mcg Documented By: Admin: 01/17/25 09:03 Dose: 5,000 mcg Documented By: Admin: 01/16/25 08:59 Dose: 5,000 mcg Documented By: Admin: 01/15/25 08:56 Dose: 5,000 mcg Documented By: KELECHI Fluticasone Propionate (Fluticasone Propionate Na Spr 16 Gm Btl) 2 sprays NA DAILY [facility] Stop: 02/14/25 08:59 Last Admin: 01/19/25 08:28 Dose: 2 sprays Documented By: Admin: 01/18/25 08:36 Dose: 2 sprays Documented By: Admin: 01/17/25 09:04 Dose: 2 sprays Documented By: Admin: 01/16/25 08:59 Dose: 2 sprays Documented By: Admin: 01/15/25 09:02 Dose: 2 sprays Documented By: KELECHI Folic Acid (Folic Acid 1 Mg Tab) 1 mg PO QAM [facility] Stop: 02/14/25 08:59 Last Admin: 01/19/25 08:26 Dose: 1 mg Documented By: Admin: 01/18/25 08:36 Dose: 1 mg Documented By: Admin: 01/17/25 09:04 Dose: 1 mg Documented By: Admin: 01/16/25 08:59 Dose: 1 mg Documented By: Admin: 01/15/25 09:01 Dose: 1 mg Documented By: KELECHI Ipratropium Tuttle (Ipratropium Tuttle Neb Soln 0.02% 0.5mg/2.5ml Vial) 0.5 mg INH Q6R [facility] Stop: 02/14/25 00:59 Last Admin: 01/19/25 07:01 Dose: 0.5 mg Documented By: Admin: 01/19/25 01:59 Dose: 0.5 mg Documented By: Admin: 01/18/25 20:13 Dose: 0.5 mg Documented By: Admin: 01/18/25 13:26 Dose: 0.5 mg Documented By: Admin: 01/18/25 07:11 Dose: 0.5 mg Documented By: Admin: 01/18/25 02:19 Dose: 0.5 mg Documented By: [email or web address] Admin: 01/17/25 19:50 Dose: 0.5 mg Documented By: Admin: 01/17/25 12:43 Dose: 0.5 mg Documented By: Admin: 01/17/25 07:01 Dose: 0.5 mg Documented By: Admin: 01/17/25 01:46 Dose: 0.5 mg Documented By: [id number] Admin: 01/16/25 19:42 Dose: 0.5 mg Documented By: [id number] Admin: 01/16/25 13:08 Dose: 0.5 mg Documented By: Admin: 01/16/25 07:29 Dose: 0.5 mg Documented By: Admin: 01/16/25 07:21 Dose: Not Given Documented By: Admin: 01/16/25 00:24 Dose: 0.5 mg Documented By: Admin: 01/15/25 20:24 Dose: 0.5 mg Documented By: Admin: 01/15/25 13:32 Dose: 0.5 mg Documented By: Admin: 01/15/25 07:10 Dose: 0.5 mg Documented By: Admin: 01/15/25 01:38 Dose: 0.5 mg Documented By: CIELO Isosorbide Mononitrate (Isosorbide [place] Extended Rel 30 Mg Tabcr) 15 mg PO QAM [facility] Stop: 02/14/25 08:59 Last Admin: 01/19/25 08:29 Dose: 15 mg Documented By: Admin: 01/18/25 08:36 Dose: 15 mg Documented By: Admin: 01/17/25 09:04 Dose: 15 mg Documented By: Admin: 01/16/25 09:00 Dose: 15 mg Documented By: Admin: 01/15/25 08:57 Dose: 15 mg Documented By: KELECHI Levalbuterol HCl (Levalbuterol 1.25 Mg/3 Ml Neb) 1.25 mg NEB Q6R [facility] Stop: 02/14/25 00:59 Last Admin: 01/19/25 07:01 Dose: 1.25 mg Documented By: Admin: 01/19/25 01:59 Dose: 1.25 mg Documented By: Admin: 01/18/25 20:13 Dose: 1.25 mg Documented By: Admin: 01/18/25 13:26 Dose: 1.25 mg Documented By: Admin: 01/18/25 07:11 Dose: 1.25 mg Documented By: Admin: 01/18/25 02:19 Dose: 1.25 mg Documented By: [email or web address] Admin: 01/17/25 19:50 Dose: 1.25 mg Documented By: Admin: 01/17/25 12:43 Dose: 1.25 mg Documented By: Admin: 01/17/25 07:01 Dose: 1.25 mg Documented By: Admin: 01/17/25 01:46 Dose: 1.25 mg Documented By: [id number] Admin: 01/16/25 19:42 Dose: 1.25 mg Documented By: [id number] Admin: 01/16/25 13:09 Dose: 1.25 mg Documented By: [email or web address] Admin: 01/16/25 07:29 Dose: 1.25 mg Documented By: Admin: 01/16/25 07:21 Dose: Not Given Documented By: Admin: 01/16/25 00:24 Dose: 1.25 mg Documented By: Admin: 01/15/25 20:24 Dose: 1.25 mg Documented By: Admin: 01/15/25 13:32 Dose: 1.25 mg Documented By: Admin: 01/15/25 07:10 Dose: 1.25 mg Documented By: Admin: 01/15/25 01:38 Dose: 1.25 mg Documented By: CIELO Metoprolol Succinate (Metoprolol Succ 25mg Ext Rel Tab) 12.5 mg PO QAM [facility] Stop: 02/14/25 08:59 Last Admin: 01/19/25 08:29 Dose: 12.5 mg Documented By: Admin: 01/18/25 08:34 Dose: 12.5 mg Documented By: Admin: 01/17/25 09:05 Dose: 12.5 mg Documented By: Admin: 01/16/25 09:00 Dose: 12.5 mg Documented By: Admin: 01/15/25 08:58 Dose: 12.5 mg Documented By: KELECHI Miscellaneous (Remove Nicoderm Patch) 1 each N/A DAILY@2058 [facility] Stop: 02/14/25 20:58 Last Admin: 01/18/25 20:27 Dose: 1 each Documented By: Admin: 01/17/25 19:54 Dose: 1 each Documented By: Admin: 01/16/25 20:26 Dose: Not Given Documented By: Admin: 01/15/25 20:32 Dose: 1 each Documented By: CASTRO Multivitamins/Minerals (Cerovite Adv Formula Tab) 1 tab PO QAM [facility] Stop: 02/14/25 08:59 Last Admin: 01/19/25 08:27 Dose: 1 tab Documented By: Admin: 01/18/25 08:37 Dose: 1 tab Documented By: Admin: 01/17/25 09:05 Dose: 1 tab Documented By: Admin: 01/16/25 09:01 Dose: 1 tab Documented By: Admin: 01/15/25 08:57 Dose: 1 tab Documented By: KELECHI Nicotine (Nicotine 7 Mg/24 Hr Tdsy) 1 patch TD HS [facility] Stop: 02/14/25 02:49 Last Admin: 01/18/25 20:27 Dose: 1 patch Documented By: Admin: 01/17/25 19:54 Dose: 1 patch Documented By: Admin: 01/16/25 20:25 Dose: 1 patch Documented By: Admin: 01/15/25 20:36 Dose: 1 patch Documented By: Admin: 01/15/25 03:21 Dose: 1 patch Documented By: CASTRO Pantoprazole Sodium (Pantoprazole 40 Mg Tab) 40 mg PO DAILYBB [facility] Stop: 02/14/25 06:29 Last Admin: 01/19/25 06:01 Dose: 40 mg Documented By: Admin: 01/18/25 06:05 Dose: 40 mg Documented By: Admin: 01/17/25 05:35 Dose: 40 mg Documented By: Admin: 01/16/25 05:25 Dose: 40 mg Documented By: Admin: 01/15/25 06:21 Dose: 40 mg Documented By: CASTRO Rosuvastatin Calcium (Rosuvastatin Calcium 20 Mg Tab) 40 mg PO [facility]ANCE Stop: 02/14/25 20:59 Last Admin: 01/18/25 20:28 Dose: 40 mg Documented By: Admin: 01/17/25 19:55 Dose: 40 mg Documented By: Admin: 01/16/25 20:23 Dose: 40 mg Documented By: Admin: 01/15/25 20:32 Dose: 40 mg Documented By: CASTRO Sertraline HCl (Sertraline Hcl 100 Mg Tablet) 100 mg PO QAM [facility] Stop: 02/14/25 08:59 Last Admin: 01/19/25 08:26 Dose: 100 mg Documented By: Admin: 01/18/25 08:37 Dose: 100 mg Documented By: Admin: 01/17/25 09:05 Dose: 100 mg Documented By: Admin: 01/16/25 09:01 Dose: 100 mg Documented By: Admin: 01/15/25 08:58 Dose: 100 mg Documented By: KELECHI Thiamine HCl (Thiamine Hcl 100 Mg Tab) 100 mg PO QAM [facility] Stop: 02/14/25 08:59 Last Admin: 01/19/25 08:26 Dose: 100 mg Documented By: Admin: 01/18/25 08:35 Dose: 100 mg Documented By: Admin: 01/17/25 09:06 Dose: 100 mg Documented By: Admin: 01/16/25 09:01 Dose: 100 mg Documented By: Admin: 01/15/25 12:01 Dose: 100 mg Documented By: KELECHI Vitamin D (Cholecalciferol 25 Mcg (1000 Units) Tab) 50 mcg PO DAILY [facility] Stop: 02/14/25 08:59 Last Admin: 01/19/25 08:27 Dose: 50 mcg Documented By: Admin: 01/18/25 08:37 Dose: 50 mcg Documented By: Admin: 01/17/25 09:03 Dose: 50 mcg Documented By: Admin: 01/16/25 08:58 Dose: 50 mcg Documented By: Admin: 01/15/25 09:00 Dose: 50 mcg Documented By: KELECHI
[2025-01-20 06:32] LABS: Hemoglobin 15.4 g/dl (14.0-18.0); Mean Corpuscular Hemoglobin 31.9 pg (25.0-34.0); Mean Corpuscular Hgb Conc 34.2 g/dL (32.0-36.0); Mean Corpuscular Volume 93.2 fL (80.0-100.0); Platelet Count 399 K/uL (130-400); RDW Coefficient of Variation 13.2 % (11.5-14.5); RDW Standard Deviation 45.5 fL (36.4-46.3); Red Blood Count 4.83 M/uL (4.70-6.10); White Blood Count 9.35 K/ul (4.8-10.8)
[2025-01-20 07:07] LABS: BUN Creatinine Ratio 21.9 (10-20); Calcium 9.4 mg/dl (8.6-10.3); Creatinine Clr Calc Pharmacy 66.6 ml/min; Potassium 3.6 mmol/L (3.5-5.1)
--- NOTE | 2025-01-20 11:43 | Hospitalist Progress Note ---
Date of Service January 20, 2025 Assessment & Plan (1) Acute hypoxemic respiratory failure: Plan: Acute hypoxemic respiratory failure Parainfluenza Infection HAP Hemoptysis -Secondary to COPD exacerbation secondary to HCAP -Recent vascular procedure, history of PVD -s/p 5 days of prednisone 3 day course of abx Plan: -continue inhalers -IS, flutter valve ordered -continue eliquis today -supportive care for parainfluenza -awaiting SNF placement, medically stable for SNF at this time Hyperactive Delirium -multifactorial in setting of acute illness, hospital setting, likely mild cognitive impairement, perhaps mild withdrawal Plan: -delirium precautions -avoid anticholinergics #Alcohol Use -risk for alcohol withdrawal Troponin elevation secondary to illness hx CAD GERD, on PPI anxiety/mood disorder, some anxiety during exam Hyperglycemia, hemoglobin A1c of 5.3 from last month ongoing tobacco/alcohol abuse I spent a total of 45 minutes in direct patient care, including [id number] time with the patient and/or family, reviewing medical records, ordering and reviewing diagnostic tests, and coordinating care with other healthcare providers. This time includes: history taking, physical examination, medical decision making, counseling, ECG interpretation, imaging interpretation, lab interpretation, orders, and education, excluding time spent in the performance of separately billed services. Admission and Anticipated Discharge Date Admission Date: January 14, 2025 Subjective Patient seen and examined at bedside. Patient doing well today, no concerns at this time. Review of Systems Review of Systems: CONSTITUTIONAL: Patient denies fevers, chills, sweats and weight changes. EYES: Patient denies any visual symptoms. EARS, NOSE, AND THROAT: No difficulties with hearing. No symptoms of rhinitis or sore throat. CARDIOVASCULAR: Patient denies chest pains, palpitations, orthopnea and paroxysmal nocturnal dyspnea. RESPIRATORY: SOB, improving GI: No nausea, vomiting, diarrhea, constipation, abdominal pain, hematochezia or melena. : No urinary hesitancy or dribbling. No nocturia or urinary frequency. No abnormal urethral discharge. MUSCULOSKELETAL: No myalgias or arthralgias. NEUROLOGIC: No chronic headaches, no seizures. Patient denies numbness, tingling or weakness. PSYCHIATRIC: Patient denies problems with mood disturbance. No problems with anxiety. ENDOCRINE: No excessive urination or excessive thirst. DERMATOLOGIC: Patient denies any rashes or skin changes. Physical Exam Physical Exam: Gen: A&O 2-3 NAD HEENT: NCAT, EOMI, not icteric. External ears normal. No rhinorrhea. Moist mucous membranes. Neck: Supple, full range of motion, no observable masses, No meningeal sign. Lungs: rhonchi noted in RLL, improving CV: RRR, no edema. Abdomen: Soft, nondistended, No rebound tenderness. MSK: No joint swelling, no redness. Skin: No rashes, petechiae, lesions. Normal color per patient. Neuro: Normal Gait, Grossly intact. Results & Data Results & Data Vital Signs (Past 12 Hours) Vital Signs Temp Pulse Pulse Resp BP BP Pulse Ox 01/20/25 08:09 36.9 C 75 18 142/86 H 90 01/20/25 07:00 58 L 18 93 01/20/25 03:30 36.5 C 87 18 126/77 98 01/20/25 02:03 67 01/20/25 00:00 63 16 91 O2 Del Method 01/20/25 08:09 Room Air 01/20/25 07:00 Room Air 01/20/25 03:30 Room Air 01/20/25 02:03 01/20/25 00:00 Room Air Laboratory Results -personally reviewed, no leukocytosis, creatinine at baseline Medications Administered Allopurinol (Allopurinol 100 Mg Tab) 100 mg PO QAM [facility] Stop: 02/14/25 08:59 Last Admin: 01/20/25 10:22 Dose: 100 mg Documented By: Admin: 01/19/25 08:26 Dose: 100 mg Documented By: Admin: 01/18/25 08:36 Dose: 100 mg Documented By: Admin: 01/17/25 09:02 Dose: 100 mg Documented By: Admin: 01/16/25 08:57 Dose: 100 mg Documented By: Admin: 01/15/25 08:58 Dose: 100 mg Documented By: KELECHI Apixaban (Apixaban 5 Mg Tablet) 5 mg PO BID [facility] Stop: 02/16/25 20:59 Last Admin: 01/20/25 10:22 Dose: 5 mg Documented By: Admin: 01/19/25 21:22 Dose: 5 mg Documented By: Admin: 01/19/25 08:28 Dose: 5 mg Documented By: Admin: 01/18/25 20:27 Dose: 5 mg Documented By: Admin: 01/18/25 08:33 Dose: 5 mg Documented By: Admin: 01/17/25 19:57 Dose: 5 mg Documented By: VIANEY Benzonatate (Benzonatate 100 Mg Capsule) 100 mg PO TID PRN PRN Reason: Cough Stop: 02/13/25 21:34 Last Admin: 01/15/25 20:33 Dose: 100 mg Documented By: CASTRO Buspirone HCl (Buspirone 5 Mg Tab) 10 mg PO BID [facility] Stop: 02/14/25 08:59 Last Admin: 01/20/25 10:53 Dose: 10 mg Documented By: Admin: 01/19/25 21:22 Dose: 10 mg Documented By: Admin: 01/19/25 08:28 Dose: 10 mg Documented By: Admin: 01/18/25 20:28 Dose: 10 mg Documented By: Admin: 01/18/25 08:37 Dose: 10 mg Documented By: Admin: 01/17/25 19:56 Dose: 10 mg Documented By: Admin: 01/17/25 09:03 Dose: 10 mg Documented By: Admin: 01/16/25 20:24 Dose: 10 mg Documented By: Admin: 01/16/25 08:57 Dose: 10 mg Documented By: Admin: 01/15/25 20:32 Dose: 10 mg Documented By: Admin: 01/15/25 08:57 Dose: 10 mg Documented By: KELECHI Calcium Carbonate (Calcium Carbonate 500 Mg Chewable Tab) 500 mg PO QAM [facility] Stop: 02/14/25 08:59 Last Admin: 01/20/25 10:52 Dose: 500 mg Documented By: Admin: 01/19/25 08:26 Dose: 500 mg Documented By: Admin: 01/18/25 08:47 Dose: 500 mg Documented By: Admin: 01/17/25 09:16 Dose: 500 mg Documented By: Admin: 01/16/25 09:14 Dose: Not Given Documented By: Admin: 01/15/25 08:59 Dose: 500 mg Documented By: KELECHI Colchicine (Colchicine 0.6 Mg Tab) 0.6 mg PO BID [facility] Stop: 02/14/25 08:59 Last Admin: 01/20/25 10:17 Dose: 0.6 mg Documented By: Admin: 01/19/25 21:22 Dose: 0.6 mg Documented By: Admin: 01/19/25 08:28 Dose: 0.6 mg Documented By: Admin: 01/18/25 20:28 Dose: 0.6 mg Documented By: Admin: 01/18/25 08:33 Dose: 0.6 mg Documented By: Admin: 01/17/25 19:57 Dose: 0.6 mg Documented By: Admin: 01/17/25 09:03 Dose: 0.6 mg Documented By: Admin: 01/16/25 20:24 Dose: 0.6 mg Documented By: Admin: 01/16/25 08:59 Dose: 0.6 mg Documented By: Admin: 01/15/25 20:33 Dose: 0.6 mg Documented By: Admin: 01/15/25 09:00 Dose: 0.6 mg Documented By: KELECHI Cyanocobalamin (Cyanocobalamin (B-12) 2,500 Mcg Tablet) 5,000 mcg SL DAILY [facility] Stop: 02/14/25 08:59 Last Admin: 01/20/25 11:20 Dose: 5,000 mcg Documented By: Admin: 01/19/25 08:27 Dose: 5,000 mcg Documented By: Admin: 01/18/25 08:34 Dose: 5,000 mcg Documented By: Admin: 01/17/25 09:03 Dose: 5,000 mcg Documented By: Admin: 01/16/25 08:59 Dose: 5,000 mcg Documented By: Admin: 01/15/25 08:56 Dose: 5,000 mcg Documented By: KELECHI Fluticasone Propionate (Fluticasone Propionate Na Spr 16 Gm Btl) 2 sprays NA DAILY [facility] Stop: 02/14/25 08:59 Last Admin: 01/20/25 10:22 Dose: 2 sprays Documented By: Admin: 01/19/25 08:28 Dose: 2 sprays Documented By: Admin: 01/18/25 08:36 Dose: 2 sprays Documented By: Admin: 01/17/25 09:04 Dose: 2 sprays Documented By: Admin: 01/16/25 08:59 Dose: 2 sprays Documented By: Admin: 01/15/25 09:02 Dose: 2 sprays Documented By: KELECHI Folic Acid (Folic Acid 1 Mg Tab) 1 mg PO QAM [facility] Stop: 02/14/25 08:59 Last Admin: 01/20/25 10:22 Dose: 1 mg Documented By: Admin: 01/19/25 08:26 Dose: 1 mg Documented By: Admin: 01/18/25 08:36 Dose: 1 mg Documented By: Admin: 01/17/25 09:04 Dose: 1 mg Documented By: Admin: 01/16/25 08:59 Dose: 1 mg Documented By: Admin: 01/15/25 09:01 Dose: 1 mg Documented By: KELECHI Ipratropium Sophia (Ipratropium Sophia Neb Soln 0.02% 0.5mg/2.5ml Vial) 0.5 mg INH Q6R [facility] Stop: 02/14/25 00:59 Last Admin: 01/20/25 07:00 Dose: 0.5 mg Documented By: Admin: 01/20/25 00:00 Dose: 0.5 mg Documented By: Admin: 01/19/25 18:54 Dose: 0.5 mg Documented By: Admin: 01/19/25 13:22 Dose: 0.5 mg Documented By: Admin: 01/19/25 07:01 Dose: 0.5 mg Documented By: Admin: 01/19/25 01:59 Dose: 0.5 mg Documented By: Admin: 01/18/25 20:13 Dose: 0.5 mg Documented By: Admin: 01/18/25 13:26 Dose: 0.5 mg Documented By: Admin: 01/18/25 07:11 Dose: 0.5 mg Documented By: Admin: 01/18/25 02:19 Dose: 0.5 mg Documented By: Admin: 01/17/25 19:50 Dose: 0.5 mg Documented By: Admin: 01/17/25 12:43 Dose: 0.5 mg Documented By: Admin: 01/17/25 07:01 Dose: 0.5 mg Documented By: Admin: 01/17/25 01:46 Dose: 0.5 mg Documented By: [id number] Admin: 01/16/25 19:42 Dose: 0.5 mg Documented By: [id number] Admin: 01/16/25 13:08 Dose: 0.5 mg Documented By: Admin: 01/16/25 07:29 Dose: 0.5 mg Documented By: [email or web address] Admin: 01/16/25 07:21 Dose: Not Given Documented By: Admin: 01/16/25 00:24 Dose: 0.5 mg Documented By: Admin: 01/15/25 20:24 Dose: 0.5 mg Documented By: Admin: 01/15/25 13:32 Dose: 0.5 mg Documented By: Admin: 01/15/25 07:10 Dose: 0.5 mg Documented By: Admin: 01/15/25 01:38 Dose: 0.5 mg Documented By: CIELO Isosorbide Mononitrate (Isosorbide [place] Extended Rel 30 Mg Tabcr) 15 mg PO QAM [facility] Stop: 02/14/25 08:59 Last Admin: 01/20/25 10:19 Dose: 15 mg Documented By: Admin: 01/19/25 08:29 Dose: 15 mg Documented By: Admin: 01/18/25 08:36 Dose: 15 mg Documented By: Admin: 01/17/25 09:04 Dose: 15 mg Documented By: Admin: 01/16/25 09:00 Dose: 15 mg Documented By: Admin: 01/15/25 08:57 Dose: 15 mg Documented By: KELECHI Levalbuterol HCl (Levalbuterol 1.25 Mg/3 Ml Neb) 1.25 mg NEB Q6R [facility] Stop: 02/14/25 00:59 Last Admin: 01/20/25 07:00 Dose: 1.25 mg Documented By: Admin: 01/20/25 00:00 Dose: 1.25 mg Documented By: Admin: 01/19/25 18:54 Dose: 1.25 mg Documented By: Admin: 01/19/25 13:22 Dose: 1.25 mg Documented By: Admin: 01/19/25 07:01 Dose: 1.25 mg Documented By: Admin: 01/19/25 01:59 Dose: 1.25 mg Documented By: Admin: 01/18/25 20:13 Dose: 1.25 mg Documented By: Admin: 01/18/25 13:26 Dose: 1.25 mg Documented By: Admin: 01/18/25 07:11 Dose: 1.25 mg Documented By: Admin: 01/18/25 02:19 Dose: 1.25 mg Documented By: Admin: 01/17/25 19:50 Dose: 1.25 mg Documented By: Admin: 01/17/25 12:43 Dose: 1.25 mg Documented By: Admin: 01/17/25 07:01 Dose: 1.25 mg Documented By: Admin: 01/17/25 01:46 Dose: 1.25 mg Documented By: [id number] Admin: 01/16/25 19:42 Dose: 1.25 mg Documented By: [id number] Admin: 01/16/25 13:09 Dose: 1.25 mg Documented By: Admin: 01/16/25 07:29 Dose: 1.25 mg Documented By: Admin: 01/16/25 07:21 Dose: Not Given Documented By: Admin: 01/16/25 00:24 Dose: 1.25 mg Documented By: Admin: 01/15/25 20:24 Dose: 1.25 mg Documented By: Admin: 01/15/25 13:32 Dose: 1.25 mg Documented By: Admin: 01/15/25 07:10 Dose: 1.25 mg Documented By: Admin: 01/15/25 01:38 Dose: 1.25 mg Documented By: CIELO Metoprolol Succinate (Metoprolol Succ 25mg Ext Rel Tab) [facility] [place] Stop: 02/14/25 08:59 Last Admin: 01/20/25 10:21 Dose: 12.5 mg Documented By: Admin: 01/19/25 08:29 Dose: 12.5 mg Documented By: Admin: 01/18/25 08:34 Dose: 12.5 mg Documented By: Admin: 01/17/25 09:05 Dose: 12.5 mg Documented By: Admin: 01/16/25 09:00 Dose: 12.5 mg Documented By: Admin: 01/15/25 08:58 Dose: 12.5 mg Documented By: KELECHI Miscellaneous (Remove Nicoderm Patch) 1 each N/A DAILY@2058 [facility] Stop: 02/14/25 20:58 Last Admin: 01/19/25 21:23 Dose: 1 each Documented By: Admin: 01/18/25 20:27 Dose: 1 each Documented By: Admin: 01/17/25 19:54 Dose: 1 each Documented By: Admin: 01/16/25 20:26 Dose: Not Given Documented By: Admin: 01/15/25 20:32 Dose: 1 each Documented By: CASTRO Multivitamins/Minerals (Cerovite Adv Formula Tab) 1 tab PO QAM [facility] Stop: 02/14/25 08:59 Last Admin: 01/20/25 10:23 Dose: 1 tab Documented By: Admin: 01/19/25 08:27 Dose: 1 tab Documented By: Admin: 01/18/25 08:37 Dose: 1 tab Documented By: Admin: 01/17/25 09:05 Dose: 1 tab Documented By: Admin: 01/16/25 09:01 Dose: 1 tab Documented By: Admin: 01/15/25 08:57 Dose: 1 tab Documented By: KELECHI Nicotine (Nicotine 7 Mg/24 Hr Tdsy) 1 patch TD HS [facility] Stop: 02/14/25 02:49 Last Admin: 01/19/25 21:22 Dose: 1 patch Documented By: Admin: 01/18/25 20:27 Dose: 1 patch Documented By: Admin: 01/17/25 19:54 Dose: 1 patch Documented By: Admin: 01/16/25 20:25 Dose: 1 patch Documented By: Admin: 01/15/25 20:36 Dose: 1 patch Documented By: Admin: 01/15/25 03:21 Dose: 1 patch Documented By: CASTRO Pantoprazole Sodium (Pantoprazole 40 Mg Tab) 40 mg PO DAILYBB [facility] Stop: 02/14/25 06:29 Last Admin: 01/20/25 05:25 Dose: 40 mg Documented By: Admin: 01/19/25 06:01 Dose: 40 mg Documented By: Admin: 01/18/25 06:05 Dose: 40 mg Documented By: Admin: 01/17/25 05:35 Dose: 40 mg Documented By: Admin: 01/16/25 05:25 Dose: 40 mg Documented By: Admin: 01/15/25 06:21 Dose: 40 mg Documented By: CASTRO Rosuvastatin Calcium (Rosuvastatin Calcium 20 Mg Tab) 40 mg PO HS [facility] Stop: 02/14/25 20:59 Last Admin: 01/19/25 21:22 Dose: 40 mg Documented By: Admin: 01/18/25 20:28 Dose: 40 mg Documented By: Admin: 01/17/25 19:55 Dose: 40 mg Documented By: Admin: 01/16/25 20:23 Dose: 40 mg Documented By: Admin: 01/15/25 20:32 Dose: 40 mg Documented By: CASTRO Sertraline HCl (Sertraline Hcl 100 Mg Tablet) 100 mg PO QA [facility] Stop: 02/14/25 08:59 Last Admin: 01/20/25 10:21 Dose: 100 mg Documented By: Admin: 01/19/25 08:26 Dose: 100 mg Documented By: Admin: 01/18/25 08:37 Dose: 100 mg Documented By: Admin: 01/17/25 09:05 Dose: 100 mg Documented By: Admin: 01/16/25 09:01 Dose: 100 mg Documented By: Admin: 01/15/25 08:58 Dose: 100 mg Documented By: KELECHI Thiamine HCl (Thiamine Hcl 100 Mg Tab) 100 mg PO QA [facility] Stop: 02/14/25 08:59 Last Admin: 01/20/25 10:18 Dose: 100 mg Documented By: Admin: 01/19/25 08:26 Dose: 100 mg Documented By: Admin: 01/18/25 08:35 Dose: 100 mg Documented By: Admin: 01/17/25 09:06 Dose: 100 mg Documented By: Admin: 01/16/25 09:01 Dose: 100 mg Documented By: Admin: 01/15/25 12:01 Dose: 100 mg Documented By: KELECHI Vitamin D (Cholecalciferol 25 Mcg (1000 Units) Tab) 50 mcg PO DAILY [facility] Stop: 02/14/25 08:59 Last Admin: 01/20/25 10:52 Dose: 50 mcg Documented By: Admin: 01/19/25 08:27 Dose: 50 mcg Documented By: Admin: 01/18/25 08:37 Dose: 50 mcg Documented By: Admin: 01/17/25 09:03 Dose: 50 mcg Documented By: Admin: 01/16/25 08:58 Dose: 50 mcg Documented By: Admin: 01/15/25 09:00 Dose: 50 mcg Documented By: KELECHI
[2025-01-21 02:35] VITALS: TEMP 98.2
[2025-01-21 06:34] LABS: Hematocrit (blood only) 45.3 % (42.0-52.0); Hemoglobin 15.4 g/dl (14.0-18.0); Mean Corpuscular Hemoglobin 31.6 pg (25.0-34.0); Mean Corpuscular Volume 92.8 fL (80.0-100.0); Mean Platelet Volume 9.1 fL (9.4-12.4); Platelet Count 395 K/uL (130-400); RDW Coefficient of Variation 13.3 % (11.5-14.5); RDW Standard Deviation 45.3 fL (36.4-46.3); Red Blood Count 4.88 M/uL (4.70-6.10); White Blood Count 10.07 K/ul (4.8-10.8)
[2025-01-21 06:49] LABS: BUN Creatinine Ratio 23.3 (10-20); Calcium 9.1 mg/dl (8.6-10.3); Potassium 3.3 mmol/L (3.5-5.1)
[2025-01-21] MEDS: POTASSIUM CHLORIDE CRTAB 20 MEQ TABCR PO STA (07:57)
--- NOTE | 2025-01-21 12:15 | Discharge Summary ---
Discharge Summary Date of Service January 21, 2025 Principal Dx & Hospital Course #1 = Principal Diagnosis (1) Acute hypoxemic respiratory failure: Acute hypoxemic respiratory failure Parainfluenza Infection HAP Hemoptysis -Secondary to COPD exacerbation secondary to HCAP -Recent vascular procedure, history of PVD -s/p 5 days of prednisone 3 day course of abx Plan: -continue inhalers -IS, flutter valve ordered -continue eliquis today -supportive care for parainfluenza -SNF denied, discharging home today Hyperactive Delirium -multifactorial in setting of acute illness, hospital setting, likely mild cognitive impairement, perhaps mild withdrawal Plan: -delirium precautions -avoid anticholinergics #Alcohol Use -risk for alcohol withdrawal Troponin elevation secondary to illness hx CAD GERD, on PPI anxiety/mood disorder, some anxiety during exam Hyperglycemia, hemoglobin A1c of 5.3 from last month ongoing tobacco/alcohol abuse Notes For Next Care Provider 89 yo with pmhx CAD, PVD status post surgery, COPD, hypercoagulable state (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 Presented for SOB 2/2 parainfluenza . On medicine, given 5 days of steroids, 3 days of abx with improvement. SNF was denied by insurance. On 01/21/2025 patient medically stable for discharge. Medication Changes From Visit -see below Admission HPI Per Admitting Provider History obtained from patient, family, and records. 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 Last [facility] November 2024 for transient hypotension responsive to IVF. 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 No immediate postop complications. Patient not feeling well the last couple of days. Weak and feeling like shit. Junky cough symptoms mixed with blood as per patient. Increasing SOB. Denies fluid retention. Denies aspiration. Central chest pain from coughing. Lowest O2 sats of 80s documented at the ER. Solu-Medrol, neb treatment, and ceftriaxone administered at the ER. Medical History as above Surgical History : Multiple vascular procedures, IVC filter placement/removal, cataract surgeries Family History : DM, stroke Personal/Social history : 1/4 pack daily, alcohol abuse as per records Discharge Exam Gen: A&O 2-3 NAD HEENT: NCAT, EOMI, not icteric. External ears normal. No rhinorrhea. Moist mucous membranes. Neck: Supple, full range of motion, no observable masses, No meningeal sign. Lungs: rhonchi noted in RLL, improving CV: RRR, no edema. Abdomen: Soft, nondistended, No rebound tenderness. MSK: No joint swelling, no redness. Skin: No rashes, petechiae, lesions. Normal color per patient. Neuro: Normal Gait, Grossly intact. Updated Medication List Medication Instructions Recorded Confirmed Type ascorbic acid (vitamin C) 500 mg 500 mg PO Q OTHER DAY 09/26/18 01/14/25 History tablet clopidogrel 75 mg tablet (Plavix) 75 mg PO DAILY 09/26/18 01/14/25 History allopurinol 100 mg tablet 100 mg PO QAM 12/03/24 01/14/25 History apixaban 5 mg tablet (Eliquis) 5 mg PO BID 12/03/24 01/14/25 History buspirone 10 mg tablet 10 mg PO BID 12/03/24 01/14/25 History colchicine 0.6 mg tablet 0.6 mg PO BID 12/03/24 01/14/25 History metoprolol succinate 25 mg 12.5 mg PO QAM 12/03/24 01/14/25 History tablet,extended release 24 hr rosuvastatin 40 mg tablet 40 mg PO HS 12/03/24 01/14/25 History calcium carbonate (Calcium Antacid) 200 mg PO QAM 01/14/25 01/14/25 History cholecalciferol (vitamin D3) 50 50 mcg PO DAILY 01/14/25 01/14/25 History mcg (2,000 unit) capsule (Vitamin D3) cyanocobalamin (vitamin B-12) 6,000 mcg sublingual DAILY 01/14/25 01/14/25 History 5,000 mcg/mL sublingual drops (Vitamin B-12) fluticasone propionate 50 2 spray intranasal DAILY 01/14/25 01/14/25 History mcg/actuation nasal spray,suspension folic acid 1 mg tablet 1 mg PO Q OTHER DAY 01/14/25 01/14/25 History isosorbide mononitrate 30 mg 15 mg PO QAM 01/14/25 01/14/25 History tablet,extended release 24 hr loratadine 10 mg tablet 10 mg PO QAM 01/14/25 01/14/25 History [id number] acid 200 1 tab PO QAM 01/14/25 01/14/25 History mcg-lutein 137.5 mcg chewable tablet (Adult Multivitamin (w-lutein)) pantoprazole 40 mg tablet,delayed 40 mg PO DAILYBB 01/14/25 01/14/25 History release sertraline 100 mg tablet 100 mg PO QAM 01/14/25 01/14/25 History vit C 250 mg-vit E 90 mg-zinc 40 1 tab PO QAM 01/14/25 01/14/25 History mg-copper 1 [id number]-zbljgl capsule (PreserVision AREDS-2) albuterol sulfate 90 mcg/actuation 1 inh inhalation Q6H PRN shortness 01/21/25 Rx breath activated powder inhaler of breath or wheezing #1 ea ipratropium bromide 17 1 inh inhalation Q6H PRN shortness 01/21/25 Rx mcg/actuation HFA aerosol inhaler of breath or wheezing #12.9 grams Hospital Stay Data Consultations 01/14/25 20:44 ED Decision to Admit Stat Diagnostic Imagining Performed 01/14/25 21:34 CT chest diagnostic w con Stat Pending Results Patient Have Any Pending Studies at Discharge: No Discharge Instructions Given to Patient (Per Discharging Provider) 1. Please take all medications as prescribed. 2. Please stay hydrated. Total Time Total Time Spent Total Time Spent (In Minutes): I spent a total of 35 minutes in direct patient care, including [id number] time with the patient and/or family, reviewing medical records, ordering and reviewing diagnostic tests, and coordinating care with other healthcare providers. This time includes: history taking, physical examination, medical decision making, counseling, ECG interpretation, imaging interpretation, lab interpretation, orders, and education, excluding time spent in the performance of separately billed services.
[2025-01-21 12:27] VITALS: BP 117/77
[2025-01-21 13:25] VITALS: PULSE 72; RESP 18; O2SAT 91
== END 2025-01-21 14:18 | disposition home health service (06) | DRG 193 ==
LOC: ED 18:46 → 2S 21:34